=== PATIENT | male | born 1970 | race Caucasian/White ===

== ENCOUNTER 2016-06-22 13:49 | Emergency (ER) | payer BC, OTHER ==
[~2016-06-22] VITALS: Ht 180.3 cm; Wt 104.0 kg
[~2016-06-22 13:49] MED LIST: ACET-1256 PO; KPP/250 PO; SERT-234 PO
[2016-06-22 14:06] VITALS: TEMP 36.9
[2016-06-22] MEDS ORDERED: KETOROLAC TROMETHAMINE 30 MG/ML VIAL IV STA (14:16)
[2016-06-22] MEDS ORDERED: SODIUM CHLORIDE 0.9% 1000ML 1,000 ML IV STA (14:16)
[2016-06-22] MEDS ORDERED: MoRPHine SULFATE 10 MG/ML CARP/VIAL IV STA (14:16)
[2016-06-22] MEDS ORDERED: DiphenhydrAMINE HCL 50 MG/ML VIAL IV STA (14:16)
[2016-06-22] MEDS ORDERED: PROCHLORPERAZINE 5 MG/ML 2 ML VIAL IV STA (14:16)
[2016-06-22] MEDS ORDERED: FENTANYL CITRATE INJ 50 MCG/1 ML 2 ML VIAL IV STA (14:16)
--- NOTE | 2016-06-22 14:42 | EMERGENCY ROOM VISIT NOTE ---
History Report prepared by Aleena: Linda Colon Under the Supervision of: Dr. Eduardo Frederick M.D. First contact with patient: 14:12 Chief Complaint: HEADACHE Stated Complaint: SEVERE MIGRAINE WITH NAUSEA History of Present Illness The patient is a 45 year old male who presents to the Emergency Room with complaints of a constant headache since last night. He states that his pain began in the middle of the night. He has a history of migraine headaches and this feels like his typical migraine headache. He has pain that radiates into his jaw and shoulders. The patient rates his pain as a 10/10 in severity. Light exacerbates his pain. He is also feeling nauseated and dizzy with standing. 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 He denies fever, vision changes, and recent illness. The patient was recently at [facility] for a Gabapentin overdose. He was taken off of all his medications at that time. Since then he has been feeling weak and experiencing headaches. Source of History: patient Onset: last night Position: head Symptom Intensity: 10/10 Quality: other (radiating) Timing: constant Modifying Factors (Worsening): other (light) Associated Symptoms: + nausea, + weakness, No fevers Review of Systems See HPI for pertinent positives & negatives. A total of 10 systems reviewed and were otherwise negative. Past Medical & Surgical Medical Problems: (1) Altered mental status (2) Anxiety (3) chest pain (4) chest pain , allergy reaction (5) Depression (6) Elevated CK (7) Froin's syndrome (8) Hyperlipidemia Nec/Nos (9) Hypertension Nos (10) Lumbar Disc Displacement (11) Overdose (12) Status epilepticus (13) Suicide attempt (14) unresponsive resp failue, hypotensive, seizure Family History Cancer Diabetes mellitus Gallbladder disease Heart disease Hypertension Social History Smoking Status: Never Smoker Alcohol Use: none Drug Use: none Marital Status: Housing Status: lives with family Occupation Status: employed Current/Historical Medications Scheduled Amlodipine Besylate (Amlodipine Besylate), 5 MG PO DAILY Levetiracetam (Keppra), 500 MG PO BID Losartan Potassium (Losartan Potassium), 25 MG PO DAILY Pantoprazole (Pantoprazole Sodium), 40 MG PO DAILY Pravastatin Sodium (Pravastatin Sodium), 10 MG PO HS Sertraline (Zoloft), 100 MG PO DAILY Allergies Coded Allergies: Hydromorphone (Verified Allergy, Severe, SHORTNESS OF BREATH, 06/22/16) 1.5 hr after dilaudid iv in ed, he developed facial swelling/EDEMA TO UNDERNEATH LEFT EYE, pharyngeal and tongue sob, and wheezing, Penicillins (Verified Allergy, Severe, ALLERGY TO [id number] , 06/22/16) Doxycycline (Verified Allergy, Intermediate, BLISTERS/HIVES, 06/22/16) Clindamycin (Verified Allergy, Unknown, Unknown, 06/22/16) Eletriptan (Verified Adverse Reaction, Unknown, nausea/vomiting, 06/22/16) Physical Exam Vital Signs Date Time Temp Pulse Resp B/P Pulse Ox O2 Delivery O2 Flow Rate FiO2 06/22/16 16:26 83 16 118/68 92 06/22/16 15:28 85 117/64 91 Room Air 06/22/16 15:22 92 06/22/16 14:58 121/74 06/22/16 14:48 78 16 123/78 94 125/85 95 119/82 06/22/16 14:45 95 Room Air 06/22/16 14:45 95 Room Air 06/22/16 14:06 36.9 112 18 142/91 97 Room Air Physical Exam GENERAL: Patient is a healthy-appearing well-nourished 45 year old male. HEAD: Normocephalic atraumatic EYES: Ocular movements intact pupils equal and react to light OROPHARYNX mucous membranes are moist no exudates present no erythema or edema present NECK: Supple no nuchal rigidity, no evidence of meningitis or encephalitis. CHEST: Good equal expansion LUNGS: Clear and equal to auscultation CARDIAC: Normal S1 and S2 ABDOMEN: Soft nontender no guarding BACK: No CVA tenderness EXTREMITIES: No pain upon palpation normal muscle strength in all groups no clubbing cyanosis or edema NEURO: Patient is following commands is answering questions appropriately. Alert and oriented x3 Cranial Nerves 2-12 grossly intact Medical Decision & Procedures Laboratory Results 06/22/16 14:50 Red Blood Count 5.02, Mean Corpuscular Volume 88.2, Mean Corpuscular Hemoglobin 30.9, Mean Corpuscular Hemoglobin Concent 35.0, Mean Platelet Volume 8.5, Neutrophils (%) (Auto) 47.9, Lymphocytes (%) (Auto) 36.6, Monocytes (%) (Auto) 9.6, Eosinophils (%) (Auto) 4.9, Basophils (%) (Auto) 0.5, Neutrophils # (Auto) 3.59, Lymphocytes # (Auto) 2.75, Monocytes # (Auto) 0.72, Eosinophils # (Auto) 0.37, Basophils # (Auto) 0.04 06/22/16 14:50 Test 06/22/16 14:47 06/22/16 14:50 06/22/16 14:51 Bedside Glucose 81 mg/dl (70-99) White Blood Count 7.51 K/uL (4.8-10.8) Red Blood Count 5.02 M/uL (4.7-6.1) Hemoglobin 15.5 g/dL (14.0-18.0) Hematocrit 44.3 % (42-52) Mean Corpuscular Volume 88.2 fL (80-100) Mean Corpuscular Hemoglobin 30.9 pg (25-34) Mean Corpuscular Hemoglobin Concent 35.0 g/dl (32-36) Platelet Count 164 K/uL (130-400) Mean Platelet Volume 8.5 fL (7.4-10.4) Neutrophils (%) (Auto) 47.9 % Lymphocytes (%) (Auto) 36.6 % Monocytes (%) (Auto) 9.6 % Eosinophils (%) (Auto) 4.9 % Basophils (%) (Auto) 0.5 % Neutrophils # (Auto) 3.59 K/uL (1.4-6.5) Lymphocytes # (Auto) 2.75 K/uL (1.2-3.4) Monocytes # (Auto) 0.72 K/uL (0.11-0.59) Eosinophils # (Auto) 0.37 K/uL (0-0.5) Basophils # (Auto) 0.04 K/uL (0-0.2) RDW Standard Deviation 44.2 fL (36.4-46.3) RDW Coefficient of Variation 13.7 % (11.5-14.5) Immature Granulocyte % (Auto) 0.5 % Immature Granulocyte # (Auto) 0.04 K/uL (0.00-0.02) Anion Gap 9.0 mmol/L (3-11) Est Creatinine Clear Calc Drug Dose 104.1 ml/min Estimated GFR () 93.5 Estimated GFR (Non- 80.6 BUN/Creatinine Ratio 11.9 (10-20) Calcium Level 8.9 mg/dl (8.5-10.1) Total Bilirubin 0.2 mg/dl (0.2-1) Direct Bilirubin < 0.1 mg/dl (0-0.2) Aspartate Amino Transf (AST/SGOT) 13 U/L (15-37) Alanine Aminotransferase (ALT/SGPT) 32 U/L (12-78) Alkaline Phosphatase 117 U/L (45-117) Total Protein 7.5 gm/dl (6.4-8.2) Albumin 4.0 gm/dl (3.4-5.0) Thyroid Stimulating Hormone (TSH) 1.220 uIu/ml (0.300-4.500) Urine Color YELLOW Urine Appearance CLEAR (CLEAR) Urine pH 6.0 (4.5-7.5) Urine Specific [place] 1.029 (1.000-1.030) Urine Protein NEG (NEG) Urine Glucose (UA) NEG (NEG) Urine Ketones TRACE (NEG) Urine Occult Blood NEG (NEG) Urine Nitrite NEG (NEG) Urine Bilirubin NEG (NEG) Urine Urobilinogen NEG (NEG) Urine Leukocyte Esterase TRACE (NEG) Urine WBC (Auto) 1-5 /hpf (0-5) Urine RBC (Auto) 0-4 /hpf (0-4) Urine Hyaline Casts (Auto) 1-5 /lpf (0-5) Urine Epithelial Cells (Auto) 10-20 /lpf (0-5) Urine Bacteria (Auto) NEG (NEG) Labs reviewed by ED physician. Medications Administered Medications (Trade) Dose Ordered Sig/Eunice Route Start Time Stop Time Status Last Admin Dose Admin Sodium Chloride (Nss 1000ml) 1,000 ml @ 999 mls/hr Q1H1M STAT IV 06/22/16 14:16 06/22/16 15:16 DC 06/22/16 15:03 999 MLS/HR Ketorolac Tromethamine (Toradol Inj) 30 mg NOW STAT IV 06/22/16 14:16 17 14:18 DC 06/22/16 15:06 30 MG Prochlorperazine Edisylate (Compazine Inj) 10 mg NOW STAT IV 06/22/16 14:16 1/16/17 14:18 DC 06/22/16 15:11 10 MG Diphenhydramine HCl (Benadryl Inj) 50 mg NOW STAT IV 06/22/16 14:16 06/22/16 14:18 DC 06/22/16 15:05 50 MG Fentanyl Citrate (Fentanyl Inj) 50 mcg NOW STAT IV 06/22/16 14:16 06/22/16 14:18 DC 06/22/16 15:07 50 MCG Morphine Sulfate (MoRPHine SULFATE INJ) 6 mg NOW STAT IV 06/22/16 14:16 06/22/16 14:18 DC 06/22/16 15:09 6 MG ECG Indication: weakness Rate (beats per minute): 84 Rhythm: normal sinus Findings: no acute ischemic change, no ectopy ED Course 1412: Past medical records reviewed. The patient was evaluated in room C12B. A complete history and physical examination was performed. 1416: Morphine sulfate 6 mg IV, Fentanyl 50 mcg IV, Benadryl 50 mg IV, Compazine 10 mg IV, Toradol 30 mg IV, NSS 1000 ml @ 999 mls/hr IV 1546: I reassessed the patient at this time. He is feeling better and resting comfortably. I discussed the results and treatment plan with the patient. I answered all pertaining questions that he had. He expressed understanding and verbalized agreement. The patient will be discharged home. Medical Decision Differential diagnosis: Etiologies such as migraine headache, meningitis, sinusitis, CO exposure, ICH, SAH, infection, tumor, headache, sinus thrombosis, arterial dissection, as well as others were entertained. This is a 45-year-old male who presents emergency department complaining of what he feels is a typical migraine headache however he is had associated weakness along with it. The patient was recently admitted to [facility] for a Neurontin overdose. It has been off his- neuro medication since then. He is asking for his normal migraine cocktail and feels that this is a normal migraine. For this reason IV was established, patient given normal saline bolus , Toradol, Compazine, Benadryl, morphine, fentanyl. Repeat examination revealed improvement patient's symptoms. I do feel the patient as well as he can be discharged home for follow-up with his primary care physician. Patient was in agreement with the treatment plan. Impression Primary Impression: Headache Scribe Attestation The scribe's documentation has been prepared under my direction and personally reviewed by me in its entirety. I confirm that the note above accurately reflects all work, treatment, procedures, and medical decision making performed by me. Departure Information Dispostion Home / Self-Care Referrals Nigel Chowdary M.D. Forms HOME CARE DOCUMENTATION FORM, IMPORTANT VISIT INFORMATION, School Instructions, Work Instructions Patient Instructions Headache Pain, My [facility] Additional Instructions You received narcotic or benzodiazepene medication while in the emergency room today. Do not drive, operate heavy machinery, or drink alcohol under the influence of this medication. You have been examined and treated today on an emergency basis only. This is not a substitute for, or an effort to provide, complete comprehensive medical care. It is impossible to recognize and treat all injuries or illnesses in a single emergency department visit. It is therefore important that you follow up closely with Dr Chowdary. Call as soon as possible for an appointment. Thank you for your time and consideration. I look forward to speaking with you again soon. Please don't hesitate to call us if you have any questions. Problem Qualifiers Primary Impression: Headache Headache type: unspecified Headache chronicity pattern: unspecified pattern Intractability: not intractable Qualified Codes: R51 - Headache
[2016-06-22 14:43] VITALS: Ht 180.3 cm; Wt 104.0 kg
[2016-06-22 14:45] VITALS: O2SAT 95
[2016-06-22 15:12] LABS: BASO % 0.5 %; BASO ABS # 0.04 K/uL (0-0.2); COMPLETE YES; EOS % 4.9 %; HEMATOCRIT 44.3 % (42-52); IG% 0.5 %; LYMPH % 36.6 %; LYMPH ABS # 2.75 K/uL (1.2-3.4); MEAN CELL VOLUME 88.2 fL (80-100); MEAN CORPUSCULAR HEMOGLOBIN 30.9 pg (25-34); MEAN PLATELET VOLUME 8.5 fL (7.4-10.4); MONO % 9.6 %; NEUT % 47.9 %; PLATELET COUNT 164 K/uL (130-400); RED BLOOD COUNT 5.02 M/uL (4.7-6.1); WHITE BLOOD COUNT 7.51 K/uL (4.8-10.8)
[2016-06-22 15:23] LABS: URINE APPEARANCE CLEAR (CLEAR); URINE BILIRUBIN NEG (NEG); URINE COLOR YELLOW; URINE NITRITE NEG (NEG); URINE SPECIFIC GRAVITY 1.029 (1.000-1.030); UROBILINOGEN NEG (NEG)
[2016-06-22 15:33] LABS: MANUAL MICROSCOPIC REQUIRED? NO; REVIEW REQ? NO
[2016-06-22 16:25] LABS: ALT/SGPT 32 U/L (12-78); AST/SGOT 13 U/L (15-37); BLOOD UREA NITROGEN 13 mg/dl (7-18); BUN/CREATININE RATIO 11.9 (10-20); CALCIUM 8.9 mg/dl (8.5-10.1); CARBON DIOXIDE 29 mmol/L (21-32); CHLORIDE 104 mmol/L (98-107); GLUCOSE 85 mg/dl (70-99); POTASSIUM 4.1 mmol/L (3.5-5.1); SODIUM 142 mmol/L (136-145)
[2016-06-22 16:26] VITALS: BP 118/68; PULSE 83; O2SAT 92
[2016-06-22 16:50] LABS: ALKALINE PHOSPHATASE 117 U/L (45-117)
[2016-06-26] MEDS ORDERED: LEVE500T13 PO (15:00)
[2016-06-26] MEDS ORDERED: PRT/40 PO (16:04)
[2016-06-26] MEDS ORDERED: PRAV10TA39 PO (16:04)
[2016-06-26] MEDS ORDERED: NRV/5 PO (16:04)
[2016-06-26] MEDS ORDERED: CZR25 PO (16:04)
[2016-09-02] MEDS ORDERED: LAMO100T16 PO ×2 (09:51)
[2017-02-17] MEDS ORDERED: TRAZ100T29 PO (09:12)
== END 2016-06-22 16:27 | disposition home or self-care (01) ==
LOC: C.EDB 13:51 → C.EDC 16:27
DX: R51 Headache (principal); R42 Dizziness and giddiness; I10 Essential (primary) hypertension; E78.5 Hyperlipidemia, unspecified; F32.9 Major depressive disorder, single episode, unspecified; Z91.5 Personal history of self-harm; Z83.3 Family history of diabetes mellitus; Z82.49 Family history of ischemic heart disease and other diseases of the circulatory system; Z79.899 Other long term (current) drug therapy

== ENCOUNTER 2016-06-26 21:13 | Emergency (ER) | payer BC, OTHER ==
[~2016-06-26] VITALS: Ht 180.3 cm; Wt 100.0 kg
[~2016-06-26 21:13] MED LIST changes: -ACET-1256 PO; +CZR25 PO; -KPP/250 PO; +LEVE500T13 PO; +NRV/5 PO; +PRAV10TA39 PO; +PRT/40 PO
[2016-06-26 21:17] VITALS: TEMP 36.5; Ht 180.3 cm; Wt 100.0 kg
[2016-06-26] MEDS ORDERED: KETOROLAC TROMETHAMINE 30 MG/ML VIAL IV STA (21:50)
[2016-06-26] MEDS ORDERED: MoRPHine SULFATE 10 MG/ML CARP/VIAL IV STA (21:50)
[2016-06-26] MEDS ORDERED: LORAZEPAM 2 MG/ML 1 ML VIAL IV STA (21:50)
[2016-06-26] MEDS ORDERED: PROCHLORPERAZINE 5 MG/ML 2 ML VIAL IV STA (21:50)
[2016-06-26] MEDS ORDERED: DiphenhydrAMINE HCL 50 MG/ML VIAL IV STA (21:50)
[2016-06-26] MEDS ORDERED: SODIUM CHLORIDE 0.9% 1000ML 1,000 ML IV STA (21:50)
[2016-06-26] MEDS ORDERED: CMP/10 PO (22:37)
[2016-06-26] MEDS ORDERED: ZLF/100 PO (22:37)
[2016-06-26] MEDS ORDERED: IMT100 PO (22:37)
[2016-06-26] MEDS ORDERED: FRCT/ PO (22:37)
[2016-06-26] MEDS ORDERED: ONDA4TAB10 SL (22:37)
[2016-06-26] MEDS ORDERED: ZNF/4 PO (22:37)
[2016-06-26] MEDS ORDERED: THIA1TAB11 PO (22:38)
--- NOTE | 2016-06-26 23:27 | EMERGENCY ROOM VISIT NOTE ---
History First contact with patient: 21:48 Chief Complaint: BACK PAIN Stated Complaint: SEVERE MIGRAINE, SEVERE BACK PAIN, SPASUMS LOW JOCELIN History of Present Illness The patient is a 45 year old male who presents to the Emergency Room with complaints of headache with muscle spasms for the past day. Patient is a long- standing history of this and symptoms of similar. Headache was slow in onset. Patient is to begin Botox injections for his migraines next month. He follows with Dr. Shea. He describes the headache as throbbing, ranging in severity currently 8 out of 10 throughout the frontal region similar to prior. He states only when he gets his headaches, he also gets spasms and back pain. This is unchanged. Patient denies chest pain, dyspnea, fever, chills, vomiting , diarrhea, neck stiffness, weakness. He is tolerating by mouth fluids and food. Review of Systems See HPI for pertinent positives & negatives. A total of 10 systems reviewed and were otherwise negative. Past Medical/Surgical History Medical Problems: (1) Altered mental status (2) Anxiety (3) chest pain (4) chest pain , allergy reaction (5) Depression (6) Elevated CK (7) Froin's syndrome (8) Hyperlipidemia Nec/Nos (9) Hypertension Nos (10) Lumbar Disc Displacement (11) Overdose (12) Status epilepticus (13) Suicide attempt (14) unresponsive resp failue, hypotensive, seizure Family History Cancer Diabetes mellitus Gallbladder disease Heart disease Hypertension Social History Smoking Status: Never Smoker Alcohol Use: none Drug Use: none Marital Status: Housing Status: lives with family Occupation Status: employed Current/Historical Medications Scheduled Amlodipine Besylate (Amlodipine Besylate), 5 MG PO DAILY Levetiracetam (Keppra), 500 MG PO BID Losartan Potassium (Losartan Potassium), 25 MG PO DAILY Pantoprazole (Pantoprazole Sodium), 40 MG PO DAILY Pravastatin Sodium (Pravastatin Sodium), 10 MG PO HS Sertraline HCl (Sertraline HCl), 100 MG PO DAILY Thiamine Mononitrate (Vitamin B1), 100 MG PO DAILY Tizanidine (Tizanidine HCl), 4 MG PO HS Scheduled PRN Acetamin/Butalbital/Caffeine (Fioricet), 1-2 TABS PO BID PRN for Headache Ondasetron Odt (Zofran Odt), 4 MG SL TID PRN for Nausea Prochlorperazine Maleate (Prochlorperazine Maleate), 10 MG PO TID PRN for Nausea Sumatriptan Succinate (Imitrex), 100 MG PO UD PRN for Migraine Allergies Coded Allergies: Hydromorphone (Verified Allergy, Severe, SHORTNESS OF BREATH, 06/22/16) 1.5 hr after dilaudid iv in ed, he developed facial swelling/EDEMA TO UNDERNEATH LEFT EYE, pharyngeal and tongue sob, and wheezing, Penicillins (Verified Allergy, Severe, ALLERGY TO [id number] , 06/22/16) Doxycycline (Verified Allergy, Intermediate, BLISTERS/HIVES, 06/22/16) Clindamycin (Verified Allergy, Unknown, Unknown, 06/22/16) Eletriptan (Verified Adverse Reaction, Unknown, nausea/vomiting, 06/22/16) Physical Exam Vital Signs Date Time Temp Pulse Resp B/P Pulse Ox O2 Delivery O2 Flow Rate FiO2 06/26/16 22:41 88 16 142/107 98 Room Air 06/26/16 21:17 36.5 90 18 156/113 94 Room Air Physical Exam VITALS: Vitals are noted on the nurse's note and reviewed by myself. Vital signs hypertensive GENERAL: Pleasant male, in no acute distress, nondiaphoretic, well-developed well-nourished. SKIN: The skin was without rashes, erythema, edema, or bruising. There is no tenting of the skin. Capillary reflex less than 2 seconds. HEAD: Normocephalic atraumatic. EARS: External auditory canals clear, tympanic membranes pearly henderson without erythema or effusion bilaterally. EYES: Pupils equal round and reactive to light and accommodation. Conjunctivae without injection, sclerae without icterus. Extraocular movements intact. NOSE: Patent, turbinates without inflammation or discharge. No sinus tenderness. MOUTH: Mucous membranes moist. Pharynx without erythema or exudate. Uvula midline. Airway patent. Tongue does not deviate. NECK: Supple without nuchal rigidity. No lymphadenopathy. No thyromegaly. Cervical spine is nontender. No JVD. HEART: Regular rate and rhythm without murmurs gallops or rubs. LUNGS: Clear to auscultation bilaterally without wheezes, rales or rhonchi. No dullness to percussion. No retractions or accessory muscle use. ABDOMEN: Positive bowel sounds x 4. Normal tympanic percussion. Soft, nontender, without masses or organomegaly. Chavarria sign negative. No guarding or rebound tenderness. MUSCULOSKELETAL: No muscle atrophy, erythema, or edema noted. No thoracic or lumbar tenderness on exam. Patient can ambulate without difficulties NEURO: Patient was alert and oriented to person place and time. Normal sensation to light and sharp touch. No focal neurological deficits. Cranial nerves II through XII grossly intact. No pronator drift. Cerebellar exam intact. Medical Decision & Procedures Medications Administered Medications (Trade) Dose Ordered Sig/Eunice Route Start Time Stop Time Status Last Admin Dose Admin Morphine Sulfate (MoRPHine SULFATE INJ) 6 mg NOW STAT IV 06/26/16 21:50 06/26/16 21:54 DC 06/26/16 22:35 6 MG Ketorolac Tromethamine (Toradol Inj) 30 mg NOW STAT IV 06/26/16 21:50 06/26/16 21:54 DC 06/26/16 22:35 30 MG Diphenhydramine HCl (Benadryl Inj) 25 mg NOW STAT IV 06/26/16 21:50 06/26/16 21:54 DC 06/26/16 22:36 25 MG Prochlorperazine Edisylate 10 mg 10 mg NOW STAT IV 06/26/16 21:50 06/26/16 21:54 DC 06/26/16 22:36 10 MG Sodium Chloride (Nss 1000ml) 1,000 ml @ 999 mls/hr Q1H1M STAT IV 06/26/16 21:50 06/26/16 22:50 DC 06/26/16 22:36 999 MLS/HR ED Course Prior records/ancillary studies reviewed. Additional history obtained from family. Triage Nursing notes reviewed. The patient's history was concerning for headache. Differential diagnosis: Etiologies such as migraine headache, meningitis, sinusitis, CO exposure, ICH, SAH, infection, tumor, headache, sinus thrombosis, arterial dissection, as well as others were entertained. Physical examination findings: As above. Non-focal. ER treatment provided: Morphine, Benadryl, Compazine, fluids per patient stated protocol On reassessment the patient felt better. Diagnostics interpreted by me: Deferred This appears to be consistent with migraine. Patient has a long-standing history of this and symptoms are similar. Patient felt much better and requested to leave. He was neurovascularly and neurologically intact. He had no deficits on exam. He had no signs of meningitis. He was advised to follow- up as scheduled with neurology or here in the ER sooner for severe headache, fevers, weakness, worsening signs or symptoms or as needed. By the evaluation outlined above emergent etiologies such as meningitis, sinusitis, CO exposure, ICH, SAH, infection, temporal arteritis, tumor, sinus thrombosis, arterial dissection, as well as others were deemed relatively unlikely. The pt informed about the findings as listed above. All questions were answered and pleased with the treatment. Return instructions were outlined and the patient was discharged in stable condition. Referral: The patient was referred back to their primary care physician for follow-up in 2 to 3 days for a recheck of the current condition. Medical Decision As above Impression Primary Impression: Migraine headache Departure Information Dispostion Home / Self-Care Condition GOOD Referrals Nigel Chowdary M.D. (PCP) Patient Instructions My [facility] Additional Instructions DO NOT drive, drink alcohol, operate machinery, or perform dangerous activities today. You were given medications in the ER that can affect your ability to safely function or operate a vehicle. Rest today in a quiet, peaceful, dark environment and get a full 8-10 hrs of sleep tonight. Avoid loud noises, smoke/smoking, alcohol, bright lights, stress, or physical exertion today to minimize the chance the headache may return. Continue current medications. Ibuprofen(Motrin, Advil) may be used for fever or pain. Use 600mg every six hours as needed. Take with food. Avoid using more than 2400mg in a 24 hour period. Do not use 2400mg per day for more than three consecutive days without physician direction. Prolonged inappropriate use can lead to stomach upset or ulcers. (AND/OR) Acetaminophen(Tylenol) may be used for fever or pain. Use 1000mg every six hours as needed. Avoid using more than 3000mg in a 24 hour period. Return to the ER for passing out, worsening headache, vision problems, neck stiffness/pain, fevers, vomiting, worsening of your condition, or as needed. Follow up with your primary physician and/or a neurologist in 2-3 days for a recheck of your current condition. Problem Qualifiers Primary Impression: Migraine headache Migraine type: without aura Status migrainosus presence: without status migrainosus Intractability: not intractable Qualified Codes: G43.009 - Migraine without aura, not intractable, without status migrainosus
[2016-06-26 23:40] VITALS: BP 134/81; PULSE 68; O2SAT 92
[2016-09-02] MEDS ORDERED: LAMO100T16 PO ×2 (09:51)
[2017-02-17] MEDS ORDERED: TRAZ100T29 PO (09:12)
== END 2016-06-26 23:40 | disposition home or self-care (01) ==
LOC: C.EDB 21:15 → C.EDC 23:40
DX: G43.909 Migraine, unspecified, not intractable, without status migrainosus (principal); E78.5 Hyperlipidemia, unspecified; Z80.9 Family history of malignant neoplasm, unspecified; Z82.49 Family history of ischemic heart disease and other diseases of the circulatory system; Z83.3 Family history of diabetes mellitus; Z88.0 Allergy status to penicillin; Z88.1 Allergy status to other antibiotic agents

== ENCOUNTER 2016-07-09 18:56 | Emergency (ER) | payer BC, OTHER ==
[~2016-07-09] VITALS: Ht 180.3 cm; Wt 107.1 kg
[~2016-07-09 18:56] MED LIST changes: +CMP/10 PO; +FRCT/ PO; +IMT100 PO; +ONDA4TAB10 SL; -SERT-234 PO; +THIA1TAB11 PO; +ZLF/100 PO; +ZNF/4 PO
[2016-07-09 18:59] VITALS: TEMP 36.8; Ht 180.3 cm; Wt 107.1 kg
[2016-07-09] MEDS ORDERED: MoRPHine SULFATE 10 MG/ML CARP/VIAL IV STA (19:15)
[2016-07-09] MEDS ORDERED: DiphenhydrAMINE HCL 50 MG/ML VIAL IV STA (19:15)
[2016-07-09] MEDS ORDERED: KETOROLAC TROMETHAMINE 30 MG/ML VIAL IV STA (19:15)
[2016-07-09] MEDS ORDERED: PROCHLORPERAZINE 5 MG/ML 2 ML VIAL IV STA (19:15)
[2016-07-09] MEDS ORDERED: SODIUM CHLORIDE 0.9% 1000ML 1,000 ML IV STA (19:15)
--- NOTE | 2016-07-09 20:32 | EMERGENCY ROOM VISIT NOTE ---
ED Visit Note First contact with patient: 19:07 CHIEF COMPLAINT: Migraine headache HISTORY OF PRESENT ILLNESS: This 46-year-old male patient presented to the emergency department via private vehicle coming by mother with a gradual onset of a severe generalized headache that started this afternoon. The patient states the migraine is similar to their typical migraines. There has been associated photophobia, phonophobia, nausea but no vomiting. The patient denies fever or chills recently, and there is no weakness or numbness of the extremities. There is no difficulty with speech or vision. No trauma to the head and no neck pain. The pain is severe, constant, and it is slowly increasing in severity. The patient rates the pain as 10/10. The patient has taken Compazine and Imitrex with minimal relief. This is not the worst headache of the life and is similar to previous migraines. Previous imaging studies of the brain have been normal. REVIEW OF SYSTEMS: A review of systems was performed with positives and pertinent negatives listed in the history of present illness. All other systems were reviewed and are negative. ALLERGIES: As noted below MEDICATIONS: As noted PMH: As noted below SOCIAL HISTORY: Pt. lives at home. PHYSICAL EXAM: Vital Signs: Reviewed Nurse's notes, vital signs stable. GENERAL : 46-year-old male, who appears in pain, but non toxic in appearance and in no acute distress. MENTAL STATUS: Alert, oriented, and coherent. HEENT: Normocephalic. PERRLA. EOMI. Nares patent without nuchal rigidity. Tympanic membranes pearly henderson without erythema or effusion bilaterally. Mucous membranes moist. NECK: Supple, no nuchal rigidity, nontender, no lymphadenopathy. HEART: Regular rhythm and normal rate without murmurs, ectopy, gallops, or rubs. LUNGS: Clear to auscultation bilaterally without wheezes, rales or rhonchi. No dullness to percussion. No accessory muscle use. No retractions. SKIN: Normal. NEUROLOGICAL: Pupils are round, equal and react to light. The patient moves all extremities well and the gait is normal. EMERGENCY DEPARTMENT COURSE: I examined the patient. The patient is on a 2 narcotic injection per month treatment plan for their migraines. The patient was given 60 g of morphine, 30 mg of Toradol, 25 mg of Benadryl, 10 mg of Compazine IV and a liter of normal saline per their usual protocol. The differential diagnosis includes acute intracranial bleed, meningitis, encephalitis, mass or mass effect, sinusitis, infection, tumor, headache, temporal arteritis and carbon monoxide exposure, and migraine. The patient was discharged home in stable condition with mother driving. Patient declined any imaging or workup. Problem List Medical Problems: (1) Altered mental status Status: Resolved (2) Anxiety Status: Chronic (3) Depression Status: Chronic (4) Elevated CK Status: Resolved (5) Froin's syndrome Status: Chronic (6) Hyperlipidemia Nec/Nos Status: Chronic (7) Hypertension Nos Status: Chronic (8) Lumbar Disc Displacement Status: Resolved (9) Overdose Status: Resolved (10) Status epilepticus Status: Resolved (11) Suicide attempt Status: Resolved Current/Historical Medications Scheduled Amlodipine Besylate (Amlodipine Besylate), 5 MG PO DAILY Levetiracetam (Keppra), 500 MG PO BID Losartan Potassium (Losartan Potassium), 25 MG PO DAILY Pantoprazole (Pantoprazole Sodium), 40 MG PO DAILY Pravastatin Sodium (Pravastatin Sodium), 10 MG PO HS Sertraline HCl (Sertraline HCl), 100 MG PO DAILY Thiamine Mononitrate (Vitamin B1), 100 MG PO DAILY Tizanidine (Tizanidine HCl), 4 MG PO HS Scheduled PRN Acetamin/Butalbital/Caffeine (Fioricet), 1-2 TABS PO BID PRN for Headache Ondasetron Odt (Zofran Odt), 4 MG SL TID PRN for Nausea Prochlorperazine Maleate (Prochlorperazine Maleate), 10 MG PO TID PRN for Nausea Sumatriptan Succinate (Imitrex), 100 MG PO UD PRN for Migraine Allergies Coded Allergies: Hydromorphone (Verified Allergy, Severe, SHORTNESS OF BREATH, 06/22/16) 1.5 hr after dilaudid iv in ed, he developed facial swelling/EDEMA TO UNDERNEATH LEFT EYE, pharyngeal and tongue sob, and wheezing, Penicillins (Verified Allergy, Severe, ALLERGY TO [id number] , 06/22/16) Doxycycline (Verified Allergy, Intermediate, BLISTERS/HIVES, 06/22/16) Clindamycin (Verified Allergy, Unknown, Unknown, 06/22/16) Eletriptan (Verified Adverse Reaction, Unknown, nausea/vomiting, 06/22/16) Vital Signs Date Time Temp Pulse Resp B/P Pulse Ox O2 Delivery O2 Flow Rate FiO2 07/09/16 20:46 63 137/87 93 Room Air 07/09/16 18:59 36.8 82 18 163/98 96 Room Air Medications Administered Medications (Trade) Dose Ordered Sig/Eunice Route Start Time Stop Time Status Last Admin Dose Admin Morphine Sulfate (MoRPHine SULFATE INJ) 6 mg NOW STAT IV 07/09/16 19:15 07/09/16 19:18 DC 07/09/16 19:28 6 MG Ketorolac Tromethamine (Toradol Inj) 30 mg NOW STAT IV 07/09/16 19:15 07/09/16 19:18 DC 07/09/16 19:28 30 MG Diphenhydramine HCl (Benadryl Inj) 25 mg NOW STAT IV 07/09/16 19:15 07/09/16 19:18 DC 07/09/16 19:28 25 MG Prochlorperazine Edisylate 10 mg 10 mg NOW STAT IV 07/09/16 19:15 07/09/16 19:18 DC 07/09/16 19:28 10 MG Sodium Chloride (Nss 1000ml) 1,000 ml @ 999 mls/hr Q1H1M STAT IV 07/09/16 19:15 07/09/16 20:15 DC 07/09/16 19:27 999 MLS/HR Departure Information Impression Primary Impression: Headache Dispostion Home / Self-Care Condition GOOD Referrals Nigel Chowdary M.D. (PCP) Patient Instructions My [facility] Additional Instructions You have been treated in the Emergency Department for a Headache. You have received pain medicine in the emergency department which impairs your ability to operate a vehicle. It is illegal for you to drive after receiving these medicines. For pain control, you can use the following jlbe-vli-[id number] medicines (if >12 yo): - Regular strength (325mg/tab) Tylenol (acetaminophen) 2 tabs every 4-6 hours as needed. Do not exceed 12 tablets in a 24 hour period. Avoid taking more than 4 grams (4000 mg) of Tylenol per day. This includes any other sources of acetaminophen you may take on a regular basis. - Regular strength (200 mg/tab) Advil (ibuprofen) 1-2 tabs every 4-6 hours as needed. Do not exceed a dose of 3200 mg per day. You should relax in a quiet, dark place for the rest of the day. Avoid any possible triggers including: cigarette smoke, caffeine, nicotine, chocolate, wine, beer, loud noises or music, or bright lights. You should schedule a follow-up appointment in 2-3 days with your Primary Care Provider or established Neurologist for further evaluation and treatment of your Headache. Return to the Emergency Department if your current symptoms worsen despite treatment course outlined above, or if you develop any of the following symptoms : intractable pain despite aforementioned treatment course, visual disturbances , loss of vision, unilateral weakness or facial drooping, slurring of speech, loss of coordination, or loss of consciousness. Please return to the emergency department with any new/concerning symptoms. Problem Qualifiers Primary Impression: Headache Headache chronicity pattern: acute headache Intractability: not intractable
[2016-07-09 20:46] VITALS: BP 137/87; PULSE 63; O2SAT 93
--- NOTE | 2016-07-09 21:05 | EMERGENCY ROOM VISIT NOTE ---
ED Visit Note First contact with patient: 19:07 I did evaluate and examine this patient myself. I did guide management for the patient. I agree with the PA's assessment as discussed. Please see the PAs dictation for further details. The patient is presenting with a migraine headache. He was treated and feels better. He was advised follow with his doctor.
[2016-09-02] MEDS ORDERED: LAMO100T16 PO ×2 (09:51)
[2017-02-17] MEDS ORDERED: TRAZ100T29 PO (09:12)
== END 2016-07-09 20:51 | disposition home or self-care (01) ==
LOC: C.EDB 18:57 → C.EDD 20:51
DX: R51 Headache (principal); F41.9 Anxiety disorder, unspecified; F32.9 Major depressive disorder, single episode, unspecified; G95.89 Other specified diseases of spinal cord; E78.5 Hyperlipidemia, unspecified; I10 Essential (primary) hypertension; Z79.899 Other long term (current) drug therapy

== ENCOUNTER 2016-08-13 16:59 | Emergency (ER) | payer BC, OTHER ==
[~2016-08-13] VITALS: Ht 180.3 cm; Wt 103.8 kg
[2016-08-13 17:13] VITALS: TEMP 37.3; Ht 180.3 cm; Wt 103.8 kg
[2016-08-13] MEDS ORDERED: MoRPHine SULFATE 10 MG/ML CARP/VIAL IV STA (17:24)
[2016-08-13] MEDS ORDERED: SODIUM CHLORIDE 0.9% 1000ML 1,000 ML IV STA (17:24)
[2016-08-13] MEDS ORDERED: DiphenhydrAMINE HCL 50 MG/ML VIAL IV STA (17:24)
[2016-08-13] MEDS ORDERED: KETOROLAC TROMETHAMINE 30 MG/ML VIAL IV STA (17:24)
--- NOTE | 2016-08-13 17:31 | EMERGENCY ROOM VISIT NOTE ---
ED Visit Note First contact with patient: 17:16 CHIEF COMPLAINT: Migraine headache HISTORY OF PRESENT ILLNESS: This 46-year-old male patient presented to the emergency department via private vehicle accompanied by mother with a gradual onset of a severe generalized headache that started last evening and took butalbital which helped, however 10:30 AM it returned. he has tried Imitrex, Benadryl, Zofran, Compazine and butalbital without relief. His last Compazine was 1 tablet and 2 hours ago. He also took 25 mg Benadryl this morning. He states this is not the worst headache, but is painful. He states that this is not any different than his previous headaches. He denies any vomiting. He feels this is his typical migraine however this one has progressed. He states this does feel comparable to his headaches of the past. He was seen by myself on July 09 here at this facility. There has been associated photophobia, phonophobia, nausea but no vomiting. The patient denies fever or chills recently , and there is no weakness or numbness of the extremities. There is no difficulty with speech or vision. No trauma to the head and no neck pain. The pain is severe, constant, and it is slowly increasing in severity. The patient rates the pain as 10/10. This is not the worst headache of the life and is similar to previous migraines. Previous imaging studies of the brain have been normal. REVIEW OF SYSTEMS: A review of systems was performed with positives and pertinent negatives listed in the history of present illness. All other systems were reviewed and are negative. ALLERGIES: As noted below MEDICATIONS: As noted PMH: As noted below SOCIAL HISTORY: Pt. lives at home. PHYSICAL EXAM: Vital Signs: Reviewed Nurse's notes, vital signs stable. GENERAL : 46-year-old male, who appears in pain, but non toxic in appearance and in no acute distress. MENTAL STATUS: Alert, oriented, and coherent. HEENT: Normocephalic. PERRLA. EOMI. Nares patent without nuchal rigidity. Tympanic membranes pearly henderson without erythema or effusion bilaterally. Mucous membranes moist. NECK: Supple, no nuchal rigidity, nontender, no lymphadenopathy. HEART: Regular rhythm and normal rate without murmurs, ectopy, gallops, or rubs. LUNGS: Clear to auscultation bilaterally without wheezes, rales or rhonchi. No dullness to percussion. No accessory muscle use. No retractions. SKIN: Normal. NEUROLOGICAL: Pupils are round, equal and react to light. The patient moves all extremities well and the gait is normal. EMERGENCY DEPARTMENT COURSE: I examined the patient. The patient is on a 2 narcotic injection per month treatment plan for their migraines. The patient was given 6 mg of morphine, 30 mg of Toradol, 25 mg of Benadryl, and a liter of normal saline per their usual protocol. He was reevaluated and noted to be feeling minimally better. He was given 4 mg of morphine and then 10 mg of Compazine is addicted been 3 hours since his last dose. This provided great relief. He noted that he wanted to go home. Lab work was essentially unremarkable other than hypokalemia. He was discharged home in good condition. The differential diagnosis includes acute intracranial bleed, meningitis, encephalitis, mass or mass effect, sinusitis, infection, tumor, headache, temporal arteritis and carbon monoxide exposure, and migraine. The patient was discharged home in stable condition with mother driving. I do not feel that any imaging would be of benefit, it was noted that he has had numerous CT scans of the head in the past, he notes this is his typical migraine. Problem List Medical Problems: (1) Altered mental status Status: Resolved (2) Anxiety Status: Chronic (3) Depression Status: Chronic (4) Elevated CK Status: Resolved (5) Froin's syndrome Status: Chronic (6) Hyperlipidemia Nec/Nos Status: Chronic (7) Hypertension Nos Status: Chronic (8) Lumbar Disc Displacement Status: Resolved (9) Overdose Status: Resolved (10) Status epilepticus Status: Resolved (11) Suicide attempt Status: Resolved Current/Historical Medications Scheduled Amlodipine Besylate (Amlodipine Besylate), 5 MG PO DAILY Pantoprazole (Pantoprazole Sodium), 40 MG PO DAILY Pravastatin Sodium (Pravastatin Sodium), 10 MG PO HS Sertraline HCl (Sertraline HCl), 100 MG PO DAILY Tizanidine (Tizanidine HCl), 4 MG PO BID Scheduled PRN Acetamin/Butalbital/Caffeine (Fioricet), 1-2 TABS PO BID PRN for Headache Ondasetron Odt (Zofran Odt), 4 MG SL TID PRN for Nausea Prochlorperazine Maleate (Prochlorperazine Maleate), 10 MG PO TID PRN for Nausea Sumatriptan Succinate (Imitrex), 100 MG PO UD PRN for Migraine Allergies Coded Allergies: Hydromorphone (Verified Allergy, Severe, SHORTNESS OF BREATH, 08/13/16) 1.5 hr after dilaudid iv in ed, he developed facial swelling/EDEMA TO UNDERNEATH LEFT EYE, pharyngeal and tongue sob, and wheezing, Penicillins (Verified Allergy, Severe, ALLERGY TO [id number] , 08/13/16) Doxycycline (Verified Allergy, Intermediate, BLISTERS/HIVES, 08/13/16) Clindamycin (Verified Allergy, Unknown, Unknown, 08/13/16) Eletriptan (Verified Adverse Reaction, Unknown, nausea/vomiting, 08/13/16) Vital Signs Date Time Temp Pulse Resp B/P Pulse Ox O2 Delivery O2 Flow Rate FiO2 08/13/16 19:40 89 18 178/108 94 Room Air 08/13/16 18:21 77 16 151/99 96 Room Air 08/13/16 17:13 37.3 103 18 154/100 97 Room Air Laboratory Results 08/13/16 17:30 Red Blood Count 5.31, Mean Corpuscular Volume 87.8, Mean Corpuscular Hemoglobin 31.3, Mean Corpuscular Hemoglobin Concent 35.6, Mean Platelet Volume 9.2, Neutrophils (%) (Auto) 56.7, Lymphocytes (%) (Auto) 27.7, Monocytes (%) (Auto) 13.8, Eosinophils (%) (Auto) 1.3, Basophils (%) (Auto) 0.4, Neutrophils # (Auto ) 3.87, Lymphocytes # (Auto) 1.89, Monocytes # (Auto) 0.94, Eosinophils # (Auto ) 0.09, Basophils # (Auto) 0.03 08/13/16 17:30 Test 08/13/16 17:30 White Blood Count 6.83 K/uL (4.8-10.8) Red Blood Count 5.31 M/uL (4.7-6.1) Hemoglobin 16.6 g/dL (14.0-18.0) Hematocrit 46.6 % (42-52) Mean Corpuscular Volume 87.8 fL (80-100) Mean Corpuscular Hemoglobin 31.3 pg (25-34) Mean Corpuscular Hemoglobin Concent 35.6 g/dl (32-36) Platelet Count 142 K/uL (130-400) Mean Platelet Volume 9.2 fL (7.4-10.4) Neutrophils (%) (Auto) 56.7 % Lymphocytes (%) (Auto) 27.7 % Monocytes (%) (Auto) 13.8 % Eosinophils (%) (Auto) 1.3 % Basophils (%) (Auto) 0.4 % Neutrophils # (Auto) 3.87 K/uL (1.4-6.5) Lymphocytes # (Auto) 1.89 K/uL (1.2-3.4) Monocytes # (Auto) 0.94 K/uL (0.11-0.59) Eosinophils # (Auto) 0.09 K/uL (0-0.5) Basophils # (Auto) 0.03 K/uL (0-0.2) RDW Standard Deviation 44.1 fL (36.4-46.3) RDW Coefficient of Variation 13.7 % (11.5-14.5) Immature Granulocyte % (Auto) 0.1 % Immature Granulocyte # (Auto) 0.01 K/uL (0.00-0.02) Anion Gap 10.0 mmol/L (3-11) Est Creatinine Clear Calc Drug Dose 94.3 ml/min Estimated GFR () 83.5 Estimated GFR (Non- 72.1 BUN/Creatinine Ratio 10.3 (10-20) Calcium Level 8.9 mg/dl (8.5-10.1) Medications Administered Medications (Trade) Dose Ordered Sig/Eunice Route Start Time Stop Time Status Last Admin Dose Admin Sodium Chloride (Nss 1000ml) 1,000 ml @ 999 mls/hr Q1H1M STAT IV 08/13/16 17:24 08/13/16 18:24 DC 08/13/16 17:24 999 MLS/HR Morphine Sulfate (MoRPHine SULFATE INJ) 6 mg NOW STAT IV 08/13/16 17:24 08/13/16 17:27 DC 08/13/16 17:24 6 MG Ketorolac Tromethamine (Toradol Inj) 30 mg NOW STAT IV 08/13/16 17:24 08/13/16 17:27 DC 08/13/16 17:24 30 MG Diphenhydramine HCl (Benadryl Inj) 25 mg NOW STAT IV 08/13/16 17:24 08/13/16 17:27 DC 08/13/16 17:24 25 MG Morphine Sulfate (MoRPHine SULFATE INJ) 4 mg NOW STAT IV 08/13/16 18:17 08/13/16 18:18 DC 08/13/16 18:21 4 MG Prochlorperazine Edisylate (Compazine Inj) 10 mg NOW STAT IV 08/13/16 18:36 08/13/16 18:37 DC 08/13/16 18:45 10 MG Departure Information Impression Primary Impression: Headache Dispostion Home / Self-Care Condition GOOD Referrals No Doctor, Assigned (PCP) Patient Instructions Hypokalemia [facility] Additional Instructions You have been treated in the Emergency Department for a Headache. You have received pain medicine in the emergency department which impairs your ability to operate a vehicle. It is illegal for you to drive after receiving these medicines. For pain control, you can use the following cuvy-pws-opiiouh medicines (if >12 yo): - Regular strength (325mg/tab) Tylenol (acetaminophen) 2 tabs every 4-6 hours as needed. Do not exceed 12 tablets in a 24 hour period. Avoid taking more than 4 grams (4000 mg) of Tylenol per day. This includes any other sources of acetaminophen you may take on a regular basis. - Regular strength (200 mg/tab) Advil (ibuprofen) 1-2 tabs every 4-6 hours as needed. Do not exceed a dose of 3200 mg per day. You should relax in a quiet, dark place for the rest of the day. Avoid any possible triggers including: cigarette smoke, caffeine, nicotine, chocolate, wine, beer, loud noises or music, or bright lights. You should schedule a follow-up appointment in 2-3 days with your Primary Care Provider or established Neurologist for further evaluation and treatment of your Headache. Return to the Emergency Department if your current symptoms worsen despite treatment course outlined above, or if you develop any of the following symptoms : intractable pain despite aforementioned treatment course, visual disturbances , loss of vision, unilateral weakness or facial drooping, slurring of speech, loss of coordination, or loss of consciousness. Your potassium was found to be slightly low. Please refer to the attached handout regarding foods that are high in potassium. Please have this repeated with your family doctor. Please return to the emergency department with any new/concerning symptoms. Problem Qualifiers Primary Impression: Headache
[2016-08-13 17:44] LABS: BASO % 0.4 %; BASO ABS # 0.03 K/uL (0-0.2); COMPLETE YES; EOS % 1.3 %; HEMATOCRIT 46.6 % (42-52); IG% 0.1 %; LYMPH % 27.7 %; LYMPH ABS # 1.89 K/uL (1.2-3.4); MEAN CELL VOLUME 87.8 fL (80-100); MEAN CORPUSCULAR HEMOGLOBIN 31.3 pg (25-34); MEAN CORPUSCULAR HGB CONC 35.6 g/dl (32-36); MEAN PLATELET VOLUME 9.2 fL (7.4-10.4); MONO % 13.8 %; NEUT % 56.7 %; PLATELET COUNT 142 K/uL (130-400); RED BLOOD COUNT 5.31 M/uL (4.7-6.1); WHITE BLOOD COUNT 6.83 K/uL (4.8-10.8)
[2016-08-13 18:00] LABS: BUN/CREATININE RATIO 10.3 (10-20); CALCIUM 8.9 mg/dl (8.5-10.1); CREATININE 1.2 mg/dl (0.60-1.40); POTASSIUM 3.4 mmol/L (3.5-5.1)
[2016-08-13] MEDS ORDERED: MoRPHine SULFATE 4 MG/ML 1 ML CARP\\VIAL IV STA (18:17)
[2016-08-13] MEDS ORDERED: PROCHLORPERAZINE 5 MG/ML 2 ML VIAL IV STA (18:36)
[2016-08-13 19:40] VITALS: BP 178/108; PULSE 89; O2SAT 94
[2016-09-02] MEDS ORDERED: LAMO100T16 PO ×2 (09:51)
[2017-02-17] MEDS ORDERED: TRAZ100T29 PO (09:12)
== END 2016-08-13 19:50 | disposition home or self-care (01) ==
LOC: C.EDB 17:00 → C.EDD 19:50
DX: R51 Headache (principal); I10 Essential (primary) hypertension; E78.5 Hyperlipidemia, unspecified; G40.909 Epilepsy, unspecified, not intractable, without status epilepticus; F32.9 Major depressive disorder, single episode, unspecified; F41.9 Anxiety disorder, unspecified; M51.26 Other intervertebral disc displacement, lumbar region; Z79.899 Other long term (current) drug therapy; Z88.0 Allergy status to penicillin; Z88.3 Allergy status to other anti-infective agents; Z88.5 Allergy status to narcotic agent; Z88.8 Allergy status to other drugs, medicaments and biological substances

== ENCOUNTER → 2016-08-20 | Outpatient (CLI) | payer BC, OTHER ==
[~2016-08-20] MED LIST changes: -CZR25 PO; +LAMO100T16 PO; -LEVE500T13 PO; -THIA1TAB11 PO; +TRAZ100T29 PO
== END | disposition home or self-care (01) ==
LOC: C.LAB1850 12:23
PROVIDERS: ATTEND Allergy & Immunology Allergy
DX: G43.709 Chronic migraine without aura, not intractable, without status migrainosus (principal)

== ENCOUNTER 2016-09-07 22:31 | Emergency (ER) | payer BC, OTHER ==
[~2016-09-07] VITALS: Ht 180.3 cm; Wt 101.8 kg
[~2016-09-07 22:31] MED LIST changes: +PANT40TA2 PO; -PRT/40 PO; -TRAZ100T29 PO
[2016-09-07 22:39] VITALS: TEMP 36.4; Ht 180.3 cm; Wt 101.8 kg
[2016-09-07] MEDS ORDERED: SODIUM CHLORIDE 0.9% 1000ML 1,000 ML IV STA (23:04)
[2016-09-07] MEDS ORDERED: PROCHLORPERAZINE 5 MG/ML 2 ML VIAL IV STA (23:04)
[2016-09-07] MEDS ORDERED: DiphenhydrAMINE HCL 50 MG/ML VIAL IV STA (23:04)
[2016-09-07] MEDS ORDERED: MoRPHine SULFATE 4 MG/ML 1 ML CARP\\VIAL IV STA (23:04)
[2016-09-08 00:32] VITALS: BP 146/89; PULSE 71; O2SAT 97
--- NOTE | 2016-09-08 00:53 | EMERGENCY ROOM VISIT NOTE ---
History Report prepared by Aleena: Felisa Rutherford Under the Supervision of: Dr. Christopher Mccann M.D. First contact with patient: 22:58 Chief Complaint: HEADACHE Stated Complaint: MIGRAINE History of Present Illness The patient is a 46 year old male who presents to the Emergency Room with complaints of a worsening headache beginning 6 hours prior to arrival. The patient states that he has had a headache for the past 2 days but it worsened tonight. He describes the pain as throbbing. The patient is experiencing nausea and light sensitivity which is consistent with his typical migraine symptoms. The patient took Zofran, Benadryl and Fioricet 2 hours prior to arrival. He denies vomiting or fever. The patient is scheduled for another Botox injection on October 12. Source of History: patient Onset: 6 hours [employer] Position: head Quality: other (throbbing) Timing: worsening Modifying Factors (Worsening): other (light) Associated Symptoms: + headache, + nausea, No fevers, No vomiting Note: The patient is experiencing light sensitivity. Review of Systems See HPI for pertinent positives & negatives. A total of 10 systems reviewed and were otherwise negative. Past Medical & Surgical Medical Problems: (1) Altered mental status (2) Anxiety (3) chest pain (4) chest pain , allergy reaction (5) Depression (6) Elevated CK (7) Froin's syndrome (8) Hyperlipidemia Nec/Nos (9) Hypertension Nos (10) Lumbar Disc Displacement (11) Overdose (12) Status epilepticus (13) Suicide attempt (14) unresponsive resp failue, hypotensive, seizure Family History Cancer Diabetes mellitus Gallbladder disease Heart disease Hypertension Social History Smoking Status: Never Smoker Alcohol Use: none Drug Use: none Marital Status: Housing Status: lives with family Occupation Status: employed Current/Historical Medications Scheduled Amlodipine Besylate (Amlodipine Besylate), 5 MG PO DAILY Lamotrigine (Lamictal), 50 MG PO AMPM Pantoprazole (Pantoprazole Sodium), 40 MG PO DAILY Pravastatin Sodium (Pravastatin Sodium), 10 MG PO HS Sertraline HCl (Sertraline HCl), 100 MG PO DAILY Tizanidine (Tizanidine HCl), 4 MG PO BID Scheduled PRN Acetamin/Butalbital/Caffeine (Fioricet), 1-2 TABS PO BID PRN for Headache Ondasetron Odt (Zofran Odt), 4 MG SL TID PRN for Nausea Prochlorperazine Maleate (Prochlorperazine Maleate), 10 MG PO TID PRN for Nausea Sumatriptan Succinate (Imitrex), 100 MG PO UD PRN for Migraine Allergies Coded Allergies: Hydromorphone (Verified Allergy, Severe, SHORTNESS OF BREATH, 09/07/16) 1.5 hr after dilaudid iv in ed, he developed facial swelling/EDEMA TO UNDERNEATH LEFT EYE, pharyngeal and tongue sob, and wheezing, Penicillins (Verified Allergy, Severe, ALLERGY TO [id number] , 09/07/16) Doxycycline (Verified Allergy, Intermediate, BLISTERS/HIVES, 09/07/16) Clindamycin (Verified Allergy, Unknown, Unknown, 09/07/16) Eletriptan (Verified Adverse Reaction, Unknown, nausea/vomiting, 09/07/16) Physical Exam Vital Signs Date Time Temp Pulse Resp B/P Pulse Ox O2 Delivery O2 Flow Rate FiO2 09/08/16 00:32 71 18 146/89 97 09/07/16 22:39 36.4 98 18 158/101 97 Room Air Physical Exam Constitutional: Vital signs reviewed. Eyes: Pupils are equal round reactive to light. Conjunctiva are noninjected. ENT: Pharynx is clear without erythema or exudate. Mucous membranes are moist. Neck supple without meningeal signs. Respiratory: Clear to auscultation bilaterally. Breath sounds are equal bilaterally. Cardiovascular: Regular rate and rhythm. No rubs or gallops. GI: Soft, nondistended and nontender. Bowel sounds are present. Musculoskeletal: No peripheral edema. No lower extremity tenderness. Integumentary: No cyanosis. Neurological: The patient is awake and alert. Cranial nerves II-XII are intact. Motor is 5 out of 5 all extremities. Sensation is intact to light touch all extremities. Normal speech. No pronator drift. Psychiatric: Normal affect. Medical Decision & Procedures Medications Administered Medications (Trade) Dose Ordered Sig/Eunice Route Start Time Stop Time Status Last Admin Dose Admin Prochlorperazine Edisylate (Compazine Inj) 10 mg NOW STAT IV 09/07/16 23:04 09/07/16 23:06 DC 09/07/16 23:31 10 MG Diphenhydramine HCl 25 mg 25 mg NOW STAT IV 09/07/16 23:04 09/07/16 23:06 DC 09/07/16 23:30 25 MG Sodium Chloride (Nss 1000ml) 1,000 ml @ 999 mls/hr Q1H1M STAT IV 09/07/16 23:04 09/08/16 00:04 DC 09/07/16 23:31 999 MLS/HR Morphine Sulfate (MoRPHine SULFATE INJ) 4 mg NOW STAT IV 09/07/16 23:04 09/07/16 23:06 DC 09/07/16 23:31 4 MG ED Course 2301: The patient was evaluated in room A6. A complete history and physical exam was performed. 2304: Morphine Sulfate Inj 4 mg IV, Sodium Chloride 1,000 ml @ 999 mls/hr IV, Benadryl Inj 25 mg IV, Compazine Inj 10 mg IV. 0018: The patient is feeling better and would like to go home. 0021: Upon reevaluation, the patient appeared to have improvement of his symptoms. I discussed tonight's findings with him. He verbalized agreement of the treatment plan. He was discharged home. Medical Decision This is a 46-year-old male presents with a migraine headache. I did perform a limited focused review of portions of the patient's old chart on the electronic medical record. The patient was seen by pain management September 02. He received Botox and reported 50% relief of his symptoms. I did evaluate the patient as noted above. The patient is presenting with a headache consistent with his prior migraines. He is afebrile and neurologically intact. There is no reason to suspect an acute intracranial hemorrhage or meningitis. IV access was established. I did treat the patient with IV Compazine, Benadryl, normal saline and morphine IV. I did reassess the patient. He is feeling much better and ready for discharge. He was advised follow up with his doctor and given return instructions as outlined below. Impression Primary Impression: Acute headache Scribe Attestation The scribe's documentation has been prepared under my direct and personally reviewed by me in its entirety. I confirm that the note above accurately reflects all work, treatment, procedures, and medical decision making performed by me. Departure Information Dispostion Home / Self-Care Referrals Nigel Chowdary M.D. (PCP) Forms HOME CARE DOCUMENTATION FORM, IMPORTANT VISIT INFORMATION Patient Instructions ED Headache Migraine, My [facility] Additional Instructions You have been examined and treated today on an emergency basis only. This is not a substitute for, or an effort to provide, complete comprehensive medical care. It is impossible to recognize and treat all injuries or illnesses in a single emergency department visit. It is therefore important that you follow up closely with your physician. Call as soon as possible for an appointment. Return for worsening symptoms or if you develop fever, numbness or weakness on one side of your body, difficulties with your speech or walking, or any other concerning symptoms. Problem Qualifiers Primary Impression: Acute headache Headache type: unspecified Intractability: not intractable Qualified Codes : R51 - Headache
[2017-02-17] MEDS ORDERED: TRAZ100T29 PO (09:12)
== END 2016-09-08 00:32 | disposition home or self-care (01) ==
LOC: C.EDB 22:33 → C.EDA 09-08 00:32
DX: R51 Headache (principal); F41.9 Anxiety disorder, unspecified; F32.9 Major depressive disorder, single episode, unspecified; G95.89 Other specified diseases of spinal cord; E78.5 Hyperlipidemia, unspecified; I10 Essential (primary) hypertension; M51.26 Other intervertebral disc displacement, lumbar region; Z91.5 Personal history of self-harm; Z80.9 Family history of malignant neoplasm, unspecified; Z83.3 Family history of diabetes mellitus; Z83.79 Family history of other diseases of the digestive system; Z82.49 Family history of ischemic heart disease and other diseases of the circulatory system; Z79.899 Other long term (current) drug therapy

== ENCOUNTER 2016-09-29 14:11 | Emergency (ER) | payer BC, OTHER ==
[~2016-09-29] VITALS: Ht 180.3 cm; Wt 104.2 kg
[2016-09-29 14:13] VITALS: TEMP 37; Ht 180.3 cm; Wt 104.2 kg
[2016-09-29] MEDS ORDERED: DiphenhydrAMINE HCL 50 MG/ML VIAL IV STA (14:31)
[2016-09-29] MEDS ORDERED: SODIUM CHLORIDE 0.9% 1000ML 1,000 ML IV STA (14:31)
[2016-09-29] MEDS ORDERED: MoRPHine SULFATE 4 MG/ML 1 ML CARP\\VIAL IV STA (14:31)
[2016-09-29] MEDS ORDERED: PROCHLORPERAZINE 5 MG/ML 2 ML VIAL IV STA (14:31)
[2016-09-29 15:58] VITALS: BP 126/73; PULSE 70; O2SAT 97
--- NOTE | 2016-09-29 18:31 | EMERGENCY ROOM VISIT NOTE ---
History Report prepared by Aleena: Greg Painter Under the Supervision of: Dr. Christopher Mccann M.D. First contact with patient: 14:22 Chief Complaint: HEADACHE Stated Complaint: SEVERE MIGRAINE History of Present Illness The patient is a 46 year old male with a history of migraines who presents to the Emergency Room with complaints of a persistent migraine headache that started around 0300 this morning. He says that around noon he started getting auras. The patient rates the pain at its worst as a 9 out of 10 in severity and describes it as a throbbing pain behind both eyes. The patient notes that he typically only gets pain behind his right eye. He states that he gave himself a shot in his arm of quick-acting Imitrex earlier this afternoon, which dulled the pain a bit, but the pain quickly came back. He notes that he also been nauseous and sensitive to light. He took Zofran for the nausea. The patient denies any fevers, vomiting, recent falls or trauma to his head, or numbness or weakness in his arms or legs. The patient is scheduled for Botox on October 12. He states that he has been healthy recently. Source of History: patient Onset: 0 this morning Position: head Symptom Intensity: 9/10 at worst Quality: other (migraine, throbbing behind both eyes) Timing: other (persistent) Modifying Factors (Worsening): other (light) Modifying Factors (Relieving): other (Imitrex, which dulled the pain for a little bit) Associated Symptoms: + nausea, No fevers, No numbness (arms or legs), No vomiting, No weakness (arms or legs) Note: Associated symptoms: Light sensitive. Denies recent falls or head trauma. Review of Systems See HPI for pertinent positives & negatives. A total of 10 systems reviewed and were otherwise negative. Past Medical & Surgical Medical Problems: (1) Altered mental status (2) Anxiety (3) chest pain (4) chest pain , allergy reaction (5) Depression (6) Elevated CK (7) Froin's syndrome (8) Hyperlipidemia Nec/Nos (9) Hypertension Nos (10) Lumbar Disc Displacement (11) Overdose (12) Status epilepticus (13) Suicide attempt (14) unresponsive resp failue, hypotensive, seizure Family History Cancer Diabetes mellitus Gallbladder disease Heart disease Hypertension Social History Smoking Status: Never Smoker Alcohol Use: none Drug Use: none Marital Status: Housing Status: lives with family Occupation Status: employed Current/Historical Medications Scheduled Amlodipine Besylate (Amlodipine Besylate), 5 MG PO DAILY Lamotrigine (Lamictal), 50 MG PO AMPM Pantoprazole (Pantoprazole Sodium), 40 MG PO DAILY Pravastatin Sodium (Pravastatin Sodium), 10 MG PO HS Sertraline HCl (Sertraline HCl), 100 MG PO DAILY Tizanidine (Tizanidine HCl), 4 MG PO BID Scheduled PRN Acetamin/Butalbital/Caffeine (Fioricet), 1-2 TABS PO BID PRN for Headache Ondasetron Odt (Zofran Odt), 4 MG SL TID PRN for Nausea Prochlorperazine Maleate (Prochlorperazine Maleate), 10 MG PO TID PRN for Nausea Sumatriptan Succinate (Imitrex), 100 MG PO UD PRN for Migraine Allergies Coded Allergies: Hydromorphone (Verified Allergy, Severe, SHORTNESS OF BREATH, 09/07/16) 1.5 hr after dilaudid iv in ed, he developed facial swelling/EDEMA TO UNDERNEATH LEFT EYE, pharyngeal and tongue sob, and wheezing, Penicillins (Verified Allergy, Severe, ALLERGY TO [id number] , 09/07/16) Doxycycline (Verified Allergy, Intermediate, BLISTERS/HIVES, 09/07/16) Clindamycin (Verified Allergy, Unknown, Unknown, 09/07/16) Eletriptan (Verified Adverse Reaction, Unknown, nausea/vomiting, 09/07/16) Physical Exam Vital Signs Date Time Temp Pulse Resp B/P Pulse Ox O2 Delivery O2 Flow Rate FiO2 09/29/16 15:58 70 18 126/73 97 09/29/16 14:13 37.0 62 20 150/93 97 Room Air Physical Exam Constitutional: Vital signs reviewed. Eyes: Pupils are equal round reactive to light. Conjunctiva are noninjected. ENT: Pharynx is clear without erythema or exudate. Mucous membranes are moist. Neck supple without meningeal signs. Respiratory: Clear to auscultation bilaterally. Breath sounds are equal bilaterally. Cardiovascular: Regular rate and rhythm. No rubs or gallops. GI: Soft, nondistended and nontender. Bowel sounds are present. Musculoskeletal: No peripheral edema. He Integumentary: No cyanosis. Neurological: The patient is awake and alert. Cranial nerves II-XII are intact. Motor is 5 out of 5 all extremities. Sensation is intact to light touch all extremities. Normal speech. No pronator drift. Psychiatric: Normal affect. Medical Decision & Procedures Medications Administered Medications (Trade) Dose Ordered Sig/Eunice Route Start Time Stop Time Status Last Admin Dose Admin Prochlorperazine Edisylate (Compazine Inj) 10 mg NOW STAT IV 09/29/16 14:31 09/29/16 14:32 DC 09/29/16 14:46 10 MG Diphenhydramine HCl 50 mg 50 mg NOW STAT IV 09/29/16 14:31 09/29/16 14:32 DC 09/29/16 14:46 50 MG Sodium Chloride (Nss 1000ml) 1,000 ml @ 999 mls/hr Q1H1M STAT IV 09/29/16 14:31 09/29/16 15:31 DC 09/29/16 14:31 999 MLS/HR Morphine Sulfate (MoRPHine SULFATE INJ) 4 mg NOW STAT IV 09/29/16 14:31 09/29/16 14:32 DC 09/29/16 14:47 4 MG ED Course 1423: The patient was evaluated in room C12B. A complete history and physical exam was performed. 1431: Ordered Morphine Sulfate Inj 4 mg IV, NSS 1000 ml @ 999 mls/hr IV, Benadryl Inj 50 mg IV, Compazine Inj 10 mg IV. 1537: I reevaluated the patient and he feels better and wants to go home. The patient verbally expressed understanding and agreement of the treatment plan. The patient will be discharged. Medical Decision This is a 46-year-old male presents with a migraine headache with aura. I did perform a limited focused review of portions of the patient's old chart on the electronic medical record. The patient seen here by myself September 07 for a migraine headache. He was treated with Compazine, Benadryl and Morphine and felt better. I did evaluate the patient as noted above. The patient is presenting with a migraine headache consistent with his prior migraine headaches. He did have some relief with Imitrex but his headache persisted and so he presented here. He is neurologically intact. He does not have a fever. He has no meningeal signs. He denies any history of head injury. I initially wanted to treat patient with IM medication but he stated that he only gets better with IV medicines. IV access was established. I did treat him with IV Compazine, Benadryl, morphine and normal saline. I did reassess the patient. He did feel better and wanted to go home. He was advised follow up with his doctor discharged in good condition. Impression Primary Impression: Migraine with aura Scribe Attestation The scribe's documentation has been prepared under my direct and personally reviewed by me in its entirety. I confirm that the note above accurately reflects all work, treatment, procedures, and medical decision making performed by me. Departure Information Dispostion Home / Self-Care Referrals Nigel Chowdary M.D. (PCP) Forms HOME CARE DOCUMENTATION FORM, IMPORTANT VISIT INFORMATION Patient Instructions ED Headache Migraine, My [facility] Additional Instructions You have been examined and treated today on an emergency basis only. This is not a substitute for, or an effort to provide, complete comprehensive medical care. It is impossible to recognize and treat all injuries or illnesses in a single emergency department visit. It is therefore important that you follow up closely with your physician. Call as soon as possible for an appointment. Return for worsening symptoms or if you develop fever, numbness or weakness on one side of your body, difficulties with your speech or walking, or any other concerning symptoms. Problem Qualifiers Primary Impression: Migraine with aura Status migrainosus presence: without status migrainosus Intractability: not intractable Qualified Codes: G43.109 - Migraine with aura, not intractable, without status migrainosus
[2017-02-17] MEDS ORDERED: TRAZ100T29 PO (09:12)
== END 2016-09-29 16:00 | disposition home or self-care (01) ==
LOC: C.EDB 14:12 → C.EDC 16:00
DX: G43.109 Migraine with aura, not intractable, without status migrainosus (principal); F41.9 Anxiety disorder, unspecified; F32.9 Major depressive disorder, single episode, unspecified; G95.89 Other specified diseases of spinal cord; E78.5 Hyperlipidemia, unspecified; I10 Essential (primary) hypertension; M51.26 Other intervertebral disc displacement, lumbar region; Z83.3 Family history of diabetes mellitus; Z82.49 Family history of ischemic heart disease and other diseases of the circulatory system

== ENCOUNTER → 2016-11-12 | Outpatient (CLI) | payer BC, OTHER ==
[~2016-11-12] MED LIST changes: -LAMO100T16 PO; +TRAZ100T29 PO
== END | disposition home or self-care (01) ==
LOC: C.PATHSPEC 17:15
PROVIDERS: ATTEND Plastic Surgery
DX: L92.9 Granulomatous disorder of the skin and subcutaneous tissue, unspecified (principal)

== ENCOUNTER → 2017-02-01 | Outpatient (CLI) | payer BC, OTHER ==
[~2017-02-01] MED LIST changes: -PANT40TA2 PO; +PRT/40 PO
[2017-02-01 11:16] LABS: ALT/SGPT 21 U/L (12-78); AST/SGOT 7 U/L (15-37); BLOOD UREA NITROGEN 19 mg/dl (7-18); BUN/CREATININE RATIO 17.5 (10-20); CALCIUM 9.2 mg/dl (8.5-10.1); CARBON DIOXIDE 29 mmol/L (21-32); CHLORIDE 105 mmol/L (98-107); GLUCOSE 92 mg/dl (70-99); SODIUM 139 mmol/L (136-145)
[2017-02-01 11:23] LABS: ALB/GLOB RATIO 1.1 (0.9-2); ALKALINE PHOSPHATASE 112 U/L (45-117); CHOLESTEROL 192 mg/dl (0-200); CHOLESTEROL/HDL RATIO 4.4; HDL CHOLESTEROL 44 mg/dl; LDL CHOLESTEROL CALCULATED 120 mg/dl; TRIGLYCERIDES 141 mg/dl (0-150); VERY LOW DENSITY LIPOPROT CALC 28 mg/dl
== END | disposition home or self-care (01) ==
LOC: C.LABBC 08:45
PROVIDERS: ATTEND Internal Medicine Pulmonary Disease
DX: I10 Essential (primary) hypertension (principal); G95.89 Other specified diseases of spinal cord

== ENCOUNTER 2017-09-05 13:43 | Observation (INO) | payer BC, OTHER ==
[~2017-09-05] VITALS: Ht 180.3 cm; Wt 94.2 kg
[~2017-09-05 13:43] MED LIST changes: +PANT40TA2 PO; -PRT/40 PO
[2017-09-05] MEDS ORDERED: MoRPHine SULFATE 10 MG/ML CARP/VIAL IV STA ×3 (13:58→16:04)
[2017-09-05] MEDS ORDERED: DIAZEPAM INJ 5 MG/ML 2 ML CARP IV STA ×2 (13:58→17:16)
[2017-09-05] MEDS ORDERED: SODIUM CHLORIDE 0.9% 1000ML 1,000 ML IV STA (13:58)
--- NOTE | 2017-09-05 14:09 | EMERGENCY ROOM VISIT NOTE ---
History Report prepared by Aleena: Darian Chavez Under the Supervision of: Dr. Dre Asif M.D. First contact with patient: 13:52 Chief Complaint: BACK PAIN Stated Complaint: BACK PAIN SPASMS History of Present Illness The patient is a 47 year old male who presents to the Emergency Room with complaints of constant severe low back pain rated as 10/10 that began this morning. The patient states that he bent down to tie his shoe when his pain began suddenly. He states that he also has muscle spasms that began 2 hours ago and has worsening leg numbness; he notes that his left leg is chronically numb. He states that his pain worsens with movement. He states that he has had minimal relief with Advil and does not take any chronic pain medication. He has had 5 back surgeries (L5, S1 4 screws, L4/L5 plate and 4 screws) with his most recent surgery in 2003. He denies any loss of bladder or bowel control, leg swelling, and fevers. Source of History: patient Onset: this morning Position: back (lower) Symptom Intensity: severe (pain rated as 10/10) Timing: constant Modifying Factors (Worsening): movement Modifying Factors (Relieving): other (minimal relief with Advil\) Associated Symptoms: No fevers Note: Patient denies loss of bladder or bowel control, and leg swelling. Review of Systems See HPI for pertinent positives & negatives. A total of 10 systems reviewed and were otherwise negative. Past Medical & Surgical Medical Problems: (1) Altered mental status (2) Anxiety (3) chest pain (4) chest pain , allergy reaction (5) Depression (6) Elevated CK (7) Froin's syndrome (8) Hyperlipidemia Nec/Nos (9) Hypertension Nos (10) Lumbar Disc Displacement (11) Overdose (12) Status epilepticus (13) Suicide attempt (14) unresponsive resp failue, hypotensive, seizure Family History Cancer Diabetes mellitus Gallbladder disease Heart disease Hypertension Social History Smoking Status: Never Smoker Alcohol Use: none Drug Use: none Marital Status: Housing Status: lives with family Occupation Status: disabled Current/Historical Medications Scheduled Amlodipine Besylate (Amlodipine Besylate), 5 MG PO DAILY Pantoprazole (Pantoprazole Sodium), 40 MG PO DAILY Pravastatin Sodium (Pravastatin Sodium), 10 MG PO HS Sertraline HCl (Sertraline HCl), 200 MG PO DAILY Tizanidine (Tizanidine HCl), 4 MG PO BID Trazodone Hcl (Trazodone), 150 MG PO HS Scheduled PRN Acetamin/Butalbital/Caffeine (Fioricet), 1-2 TABS PO BID PRN for Headache Diazepam (Valium), 2 MG PO Q8 PRN for Muscle Spasms Ketorolac Tromethamine (Toradol), 10 MG PO Q6H PRN for Pain Ondasetron Odt (Zofran Odt), 4 MG SL TID PRN for Nausea Prochlorperazine Maleate (Prochlorperazine Maleate), 10 MG PO TID PRN for Nausea Sumatriptan Succinate (Imitrex), 100 MG PO UD PRN for Migraine Allergies Coded Allergies: Hydromorphone (Verified Allergy, Severe, SHORTNESS OF BREATH, 09/05/17) 1.5 hr after dilaudid iv in ed, he developed facial swelling/EDEMA TO UNDERNEATH LEFT EYE, pharyngeal and tongue sob, and wheezing, Penicillins (Verified Allergy, Severe, ALLERGY TO [id number] , 09/05/17) Doxycycline (Verified Allergy, Intermediate, BLISTERS/HIVES, 09/05/17) Clindamycin (Verified Allergy, Unknown, Unknown, 09/05/17) Lamotrigine (Unverified Allergy, Unknown, tremors, 09/05/17) Eletriptan (Verified Adverse Reaction, Unknown, nausea/vomiting, 09/05/17) Physical Exam Vital Signs Date Time Temp Pulse Resp B/P (MAP) Pulse Ox O2 Delivery O2 Flow Rate FiO2 09/05/17 17:23 72 18 108/68 96 Room Air 09/05/17 16:17 72 16 128/66 97 Nasal Cannula 3.0 09/05/17 15:24 75 18 133/73 97 Nasal Cannula 4.0 09/05/17 13:46 36.7 78 20 124/76 97 Room Air Physical Exam GENERAL: Patient is severely uncomfortable appearing and in moderate distress. EYES: No scleral icterus, unremarkable pupils. ENT: Mucous membranes moist, no nasal congestion. NECK: No masses appreciated, no meningismus, trachea is midline. RESPIRATORY: No dyspnea. Clear to auscultation and equal bilaterally. No wheeze , no rhonchi. CARDIOVASCULAR: Regular rate and rhythm. No murmurs, rubs, gallops appreciated. GASTROINTESTINAL: Abdomen soft, nontender, no peritonitis. Bowel sounds positive. No masses appreciated. BACK: No midline tenderness, no CVA tenderness EXTREMITIES: Normal motion all extremities, no cyanosis, no edema. NEUROLOGIC: Decreased sensation of left lateral foot (chronic). No neurological deficits otherwise. Alert and oriented, no acute motor or sensory deficits, no focal weakness, cranial nerves grossly intact. SKIN: No rash, no jaundice, no diaphoresis. Medical Decision & Procedures ER Provider Diagnostic Interpretation: Radiology results and stated below per my review and radiologist interpretation: CT SCAN OF THE LUMBAR SPINE WITHOUT IV CONTRAST CLINICAL HISTORY: Low back pain. COMPARISON STUDY: CT scan of the lumbar spine dated 09/30/2009. MRI of lumbar spine dated 06/09/2010. TECHNIQUE: CT scan of the lumbar spine is performed from the lower thoracic spine to the sacrum. Images are reviewed in the axial, sagittal, and coronal planes. IV contrast was not administered for this examination. A dose lowering technique was utilized adhering to the principles of ALARA. FINDINGS: The skeletal structures are well mineralized. There is no evidence of fracture or malalignment involving the lumbar spine. Vertebral body height and alignment are maintained. There is straightening of the lumbar lordosis. There has been discectomy at L4-L5 and L5-S1 with anterior fusion at these levels. There is near complete bony incorporation at the fused levels. The orthopedic hardware appears intact. There has also been fusion of the posterior elements at these levels. Left hemilaminectomy change is suggested at L5. The transverse and spinous processes appear intact. There is no evidence of spondylolysis. Anterior osteophytes are noted in the upper lumbar region. No lytic or blastic lesion is seen. A tiny hemangioma is noted in the body of L1. Mild disc space narrowing is seen at L2-L3 and L3-L4. Small disc bulges are noted at these levels. There is no CT evidence of large disc herniation. The visualized sacrum and bony pelvis appear intact. The paraspinous soft tissues are within normal limits. IMPRESSION: 1. No acute bony abnormality is seen involving the lumbar spine. 2. Postoperative and mild spondylotic change as above. Electronically signed by: Venkatesh Mckeon M.D. 09/05/2017 4:43 PM Dictated Date/Time: 09/05/2017 4:[address] SCAN OF THE ABDOMEN AND PELVIS WITHOUT IV CONTRAST CLINICAL HISTORY: Low back pain. COMPARISON STUDY: KUB dated 05/12/2016. TECHNIQUE: CT scan of the abdomen and pelvis is performed from the lung bases to the proximal femora. Images are reviewed in the axial, sagittal, and coronal planes. IV contrast was not administered for this examination as per the referring clinician. A dose lowering technique was utilized adhering to the principles of ALARA. CT DOSE: 1350.79 mGy.cm FINDINGS: Lung bases: The heart is top normal in size and without pericardial effusion. There are coronary artery calcifications. The lung bases are clear. Liver: The unenhanced liver is normal in size, contour, and attenuation. There is no intrahepatic biliary ductal dilatation. Gallbladder: Unremarkable. Spleen: The spleen is enlarged measuring 15.0 cm in length. Pancreas: Unremarkable. Adrenal glands: Unremarkable. Kidneys: The unenhanced kidneys are normal in size and without hydronephrosis. There are no renal calculi identified. There is no evidence of contour deforming renal mass lesion. Abdominal vasculature: The abdominal aorta is normal in course and caliber. Bowel: The small bowel and colon are normal in course and caliber. The appendix is well-visualized and normal. Peritoneum: There is no intraperitoneal free air or abdominal ascites. There is a fat-containing umbilical hernia. Lymphadenopathy: None. Pelvic viscera: The bladder, prostate, and seminal vesicles are normal as visualized. Skeletal structures: There are postoperative changes from anterior fusion from L4-S1. No lytic or blastic lesions are seen. IMPRESSION: 1. There are no acute infectious or inflammatory findings in the abdomen or pelvis. 2. Splenomegaly. 3. Additional findings as above. Electronically signed by: Venkatesh Mckeon M.D. 09/05/2017 4:41 PM Dictated Date/Time: 09/05/2017 4:36 PM Laboratory Results 09/05/17 16:50 Red Blood Count 4.96, Mean Corpuscular Volume 86.7, Mean Corpuscular Hemoglobin 30.2, Mean Corpuscular Hemoglobin Concent 34.9, Mean Platelet Volume 8.8, Neutrophils (%) (Auto) 61.0, Lymphocytes (%) (Auto) 27.7, Monocytes (%) (Auto) 7.5, Eosinophils (%) (Auto) 3.4, Basophils (%) (Auto) 0.3, Neutrophils # (Auto) 4.30, Lymphocytes # (Auto) 1.95, Monocytes # (Auto) 0.53, Eosinophils # (Auto) 0.24, Basophils # (Auto) 0.02 09/05/17 16:50 Test 09/05/17 16:50 White Blood Count 7.05 K/uL (4.8-10.8) Red Blood Count 4.96 M/uL (4.7-6.1) Hemoglobin 15.0 g/dL (14.0-18.0) Hematocrit 43.0 % (42-52) Mean Corpuscular Volume 86.7 fL (80-100) Mean Corpuscular Hemoglobin 30.2 pg (25-34) Mean Corpuscular Hemoglobin Concent 34.9 g/dl (32-36) Platelet Count 129 K/uL (130-400) Mean Platelet Volume 8.8 fL (7.4-10.4) Neutrophils (%) (Auto) 61.0 % Lymphocytes (%) (Auto) 27.7 % Monocytes (%) (Auto) 7.5 % Eosinophils (%) (Auto) 3.4 % Basophils (%) (Auto) 0.3 % Neutrophils # (Auto) 4.30 K/uL (1.4-6.5) Lymphocytes # (Auto) 1.95 K/uL (1.2-3.4) Monocytes # (Auto) 0.53 K/uL (0.11-0.59) Eosinophils # (Auto) 0.24 K/uL (0-0.5) Basophils # (Auto) 0.02 K/uL (0-0.2) RDW Standard Deviation 43.8 fL (36.4-46.3) RDW Coefficient of Variation 13.9 % (11.5-14.5) Immature Granulocyte % (Auto) 0.1 % Immature Granulocyte # (Auto) 0.01 K/uL (0.00-0.02) Anion Gap 7.0 mmol/L (3-11) Est Creatinine Clear Calc Drug Dose 94.2 ml/min Estimated GFR () 86.4 Estimated GFR (Non- 74.6 BUN/Creatinine Ratio 21.4 (10-20) Calcium Level 8.6 mg/dl (8.5-10.1) C-Reactive Protein 0.56 mg/dl (0-0.29) Laboratory results as reviewed by me. Medications Administered Medications (Trade) Dose Ordered Sig/Eunice Route Start Time Stop Time Status Last Admin Dose Admin Sodium Chloride 1,000 ml @ 999 mls/hr Q1H1M STAT IV 09/05/17 13:58 09/05/17 14:58 DC 09/05/17 14:13 999 MLS/HR Diazepam (Valium Inj) 10 mg NOW STAT IV 09/05/17 13:58 09/05/17 13:59 DC 09/05/17 14:12 10 MG Morphine Sulfate (MoRPHine SULFATE INJ) 6 mg NOW STAT IV 09/05/17 13:58 09/05/17 13:59 DC 09/05/17 14:12 6 MG Morphine Sulfate (MoRPHine SULFATE INJ) 8 mg NOW STAT IV 09/05/17 14:33 09/05/17 14:34 DC 09/05/17 14:42 8 MG Diphenhydramine HCl (Benadryl Inj) 50 mg NOW STAT IV 09/05/17 14:38 09/05/17 14:39 DC 09/05/17 14:42 50 MG Ketorolac Tromethamine (Toradol Inj) 30 mg NOW STAT IV 09/05/17 14:59 09/05/17 15:00 DC 09/05/17 15:24 30 MG Morphine Sulfate (MoRPHine SULFATE INJ) 8 mg NOW STAT IV 09/05/17 16:04 09/05/17 16:05 DC 09/05/17 16:20 8 MG Diazepam (Valium Inj) 10 mg NOW STAT IV 09/05/17 17:16 09/05/17 17:17 DC 09/05/17 17:22 10 MG ED Course 1352: The patient was evaluated in room B5. A complete history and physical exam was performed. 1435: He requests something for nausea as Morphine was making him feel mildly nauseous. 1459: He states he has no improvement of his pain. I noted he is mildly hypoxic. His O2 saturation is 84% on room air. 1521: I checked on the patient and he is about to get Toradol. He is agreeable to CT of abdomen and pelvis. 1635: I checked on the patient and his symptoms have mildly improved. He states that he still has significant lower back pain. 1715: I checked on the patient and he notes his spams returning. I ordered Valium. He is agreeable to MRI. 1744: Discussed the patient's case with Dr. Miller. The patient will be evaluated for further treatment and disposition. 1749: Upon reevaluation, the patient is resting. Discussed results and treatment plan with the patient. He verbalized understanding and agreement with the treatment plan. The patient will be evaluated for further management. Medical Decision Differential: Musculoskeletal, Disc Herniation, Fracture, Cord Compression, Discitis, Infectious, Aortic Pathology, Renal Colic, UTI/Pyelonephritis, Acute Exacerbation of Chronic Pain, Sciatica, Cauda Equina, amongst other pathologies entertained. 47 yr old male with history lumbar back surgery though no issues in last decade arrives for acute low back pain following bending over this morning. Complaining increased paraesthesias bilateral feet but no other neuro deficits. Requiring many rounds of benzos, narcs, toradol, fluids without much improvement. CT scan without evidence retroperitoneal issue nor stone nor fracture. Labs look OK with non-specific minimal bump CRP. This does not sound like epidural abscess nor hematoma and he is adamant about not being IV drug user. Review PDMP he has no recent narc prescriptions. He does have extensive pain history though this is clearly beyond just pain med seeking and he clearly is in quite some discomfort. No rashes. Will need to have MRI but as Bhumi will be awaiting to get this for some time. As clerodrigory he won't be able to get home despite what MRI says he will need to come in. I do not feel that IV steroids indicated unless MRI were to show something of note requiring it. WBC/BMP looking OK. Hospitalist consulted and patient brought in to their service. Medication Reconcilliation Current Medication List: was personally reviewed by me Blood Pressure Screening Patient's blood pressure: Normal blood pressure Blood pressure disposition: Did not require urgent referral Consults Time Called: 1739 Consulting Physician: Dr. Miller Returned Call: [phone] Discussed the patient's case. The patient will be evaluated for further treatment and disposition. Impression Primary Impression: Intractable back pain Scribe Attestation The scribe's documentation has been prepared under my direction and personally reviewed by me in its entirety. I confirm that the note above accurately reflects all work, treatment, procedures, and medical decision making performed by me. Departure Information Prescriptions Diazepam (VALIUM) 2 Mg Tab 2 MG PO Q8 Y for Muscle Spasms, #5 TAB Prov: Florecita Bush, DO 09/06/17 Ketorolac Tromethamine (TORADOL) 10 Mg Tab 10 MG PO Q6H Y for Pain for 5 Days, #20 TAB Prov: Florecita Bush, DO 09/06/17 Referrals Nigel Chowdary M.D. (PCP) Patient Instructions [facility]
[2017-09-05] MEDS ORDERED: DiphenhydrAMINE HCL 50 MG/ML VIAL IV STA (14:38)
[2017-09-05] MEDS ORDERED: DiphenhydrAMINE HCL 50 MG/ML VIAL ONE (14:39)
[2017-09-05] MEDS ORDERED: KETOROLAC TROMETHAMINE 30 MG/ML VIAL IV STA (14:59)
--- NOTE | 2017-09-05 16:43 | DIAGNOSTIC IMAGING REPORT ---
CT SCAN OF THE ABDOMEN AND PELVIS WITHOUT IV CONTRAST CLINICAL HISTORY: Low back pain. COMPARISON STUDY: KUB dated 05/12/2016. TECHNIQUE: CT scan of the abdomen and pelvis is performed from the lung bases to the proximal femora. Images are reviewed in the axial, sagittal, and coronal planes. IV contrast was not administered for this examination as per the referring clinician. A dose lowering technique was utilized adhering to the principles of ALARA. CT DOSE: 1350.79 mGy.cm FINDINGS: Lung bases: The heart is top normal in size and without pericardial effusion. There are coronary artery calcifications. The lung bases are clear. Liver: The unenhanced liver is normal in size, contour, and attenuation. There is no intrahepatic biliary ductal dilatation. Gallbladder: Unremarkable. Spleen: The spleen is enlarged measuring 15.0 cm in length. Pancreas: Unremarkable. Adrenal glands: Unremarkable. Kidneys: The unenhanced kidneys are normal in size and without hydronephrosis. There are no renal calculi identified. There is no evidence of contour deforming renal mass lesion. Abdominal vasculature: The abdominal aorta is normal in course and caliber. Bowel: The small bowel and colon are normal in course and caliber. The appendix is well-visualized and normal. Peritoneum: There is no intraperitoneal free air or abdominal ascites. There is a fat-containing umbilical hernia. Lymphadenopathy: None. Pelvic viscera: The bladder, prostate, and seminal vesicles are normal as visualized. Skeletal structures: There are postoperative changes from anterior fusion from L4-S1. No lytic or blastic lesions are seen. IMPRESSION: 1. There are no acute infectious or inflammatory findings in the abdomen or pelvis. 2. Splenomegaly. 3. Additional findings as above. Electronically signed by: Venkatesh Mckeon M.D. 09/05/2017 4:41 PM Dictated Date/Time: 09/05/2017 4:36 PM
--- NOTE | 2017-09-05 16:44 | DIAGNOSTIC IMAGING REPORT ---
CT SCAN OF THE LUMBAR SPINE WITHOUT IV CONTRAST CLINICAL HISTORY: Low back pain. COMPARISON STUDY: CT scan of the lumbar spine dated 09/30/2009. MRI of lumbar spine dated 06/09/2010. TECHNIQUE: CT scan of the lumbar spine is performed from the lower thoracic spine to the sacrum. Images are reviewed in the axial, sagittal, and coronal planes. IV contrast was not administered for this examination. A dose lowering technique was utilized adhering to the principles of ALARA. FINDINGS: The skeletal structures are well mineralized. There is no evidence of fracture or malalignment involving the lumbar spine. Vertebral body height and alignment are maintained. There is straightening of the lumbar lordosis. There has been discectomy at L4-L5 and L5-S1 with anterior fusion at these levels. There is near complete bony incorporation at the fused levels. The orthopedic hardware appears intact. There has also been fusion of the posterior elements at these levels. Left hemilaminectomy change is suggested at L5. The transverse and spinous processes appear intact. There is no evidence of spondylolysis. Anterior osteophytes are noted in the upper lumbar region. No lytic or blastic lesion is seen. A tiny hemangioma is noted in the body of L1. Mild disc space narrowing is seen at L2-L3 and L3-L4. Small disc bulges are noted at these levels. There is no CT evidence of large disc herniation. The visualized sacrum and bony pelvis appear intact. The paraspinous soft tissues are within normal limits. IMPRESSION: 1. No acute bony abnormality is seen involving the lumbar spine. 2. Postoperative and mild spondylotic change as above. Electronically signed by: Venkatesh Mckeon M.D. 09/05/2017 4:43 PM Dictated Date/Time: 09/05/2017 4:30 PM
[2017-09-05 17:02] LABS: BASO % 0.3 %; BASO ABS # 0.02 K/uL (0-0.2); EOS % 3.4 %; EOS ABS # 0.24 K/uL (0-0.5); IG# 0.01 K/uL (0.00-0.02); LYMPH % 27.7 %; LYMPH ABS # 1.95 K/uL (1.2-3.4); MEAN CELL VOLUME 86.7 fL (80-100); MEAN CORPUSCULAR HEMOGLOBIN 30.2 pg (25-34); MEAN CORPUSCULAR HGB CONC 34.9 g/dl (32-36); MEAN PLATELET VOLUME 8.8 fL (7.4-10.4); MONO % 7.5 %; MONO ABS # 0.53 K/uL (0.11-0.59); PLATELET COUNT 129 K/uL (130-400); RED CELL DISTRIBUTION WIDTH CV 13.9 % (11.5-14.5); RED CELL DISTRIBUTION WIDTH SD 43.8 fL (36.4-46.3); WHITE BLOOD COUNT 7.05 K/uL (4.8-10.8)
[2017-09-05 17:24] LABS: CALCIUM 8.6 mg/dl (8.5-10.1); CREATININE 1.16 mg/dl (0.60-1.40)
[2017-09-05] MEDS ORDERED: ACETAMINOPHEN 325 MG TAB PO PRN (18:30)
[2017-09-05] MEDS ORDERED: DIAZEPAM INJ 5 MG/ML 2 ML CARP IV PRN (18:30)
[2017-09-05] MEDS ORDERED: KETOROLAC TROMETHAMINE 30 MG/ML VIAL IV PRN (18:30)
[2017-09-05] MEDS ORDERED: MAGNESIUM HYDROXIDE SUSP 30 ML UDC PO PRN (18:30)
[2017-09-05] MEDS ORDERED: MoRPHine SULFATE 2 MG/ML CARP IV PRN (18:30)
[2017-09-05] MEDS ORDERED: ONDANSETRON INJ 2 MG/ML 2 ML VIAL IV PRN (18:30)
[2017-09-05] MEDS ORDERED: SUMATRIPTAN SUCC TAB 100 MG TAB PO PRN (18:45)
[2017-09-05] MEDS ORDERED: PROCHLORPERAZINE MALEATE 10 MG TAB PO PRN (18:45)
[2017-09-05] MEDS ORDERED: ONDANSETRON 4MG OD TAB SL PRN (18:45)
[2017-09-05] MEDS ORDERED: BUTALBITAL/ACETAMIN/CAFFEINE TAB PO PRN (18:45)
--- NOTE | 2017-09-05 18:48 | History and Physical ---
History & Physical Date & Time of Service: Sep 05, 2017 at 18:35 Chief Complaint: Back Pain Spasms Primary Care Physician: Nigel Chowdary M.D. History of Present Illness Source: patient 47 y/o M c/o intractable back pain. Pt has had back surgery x5 and always has LBP to some level, however this AM he bent down to tie his shoes and had sudden onset of "pain like I had not had in a very long time". Pain is usually along his lumbar spine and into his L LE, however today this pain was b/l lumbar spine and into both LE and much worse than usual. He does have some L foot numbness at times, but since this started today, he has had b/l LE numbness and tingling. He does have limited L toe movement at baseline s/p his surgeries and this is unchanged. He has increased pain in all positions at present. If he had to, he could bear weight and walk, but his pain is made even worse by this. He has no bowel or bladder incontinence and no hx of this prior with other back issues. He has pain and muscle spasms are making this pain worse. He felt that the toradol did not help much, but that the valium did help take his pain from a 10/10 to 9/10 "because it shut down the spasms for a little while". These are now returned. Pt has had back surgery with a surgeon in [place] who has retired. He had surgeries x2 at [facility] and his most recent was at [facility]. He follows with Dr. Chowdhury for injections. He was seen by Dr North in the past, however was sent to other surgeons due to the complicated nature of his case. He has not seen any other local surgeons. He follows with Dr. Henderson for PM also. Pt states that he cannot have steroids due to intense anxiety reaction with this medication. Past Medical/Surgical History Medical Problems: (1) Acidosis (2) Acute allergic reaction (3) Acute exacerbation of chronic low back pain (4) Acute exacerbation of chronic low back pain (5) Acute headache (6) Acute thoracic back pain (7) Altered mental status (8) Anxiety (9) Back pain (10) Back pain (11) Back pain (12) Back pain (13) Back pain with sciatica (14) chest pain (15) chest pain , allergy reaction (16) Chronic back pain (17) Chronic headache (18) Depression (19) Dizziness (20) Elevated CK (21) Elevated CK (22) Exacerbation of chronic back pain (23) Exacerbation of chronic back pain (24) Exacerbation of chronic back pain (25) Fall (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 (27) Headache (28) Headache (29) Headache (30) Headache (31) Hyperlipidemia Nec/Nos (32) Hypertension Nos (33) Hypoxia (34) Intractable headache (35) Low back pain (36) Low back pain (37) Lower back pain (38) Lumbar Disc Displacement (39) Migraine (40) Migraine (41) Migraine (42) Migraine (43) Migraine (44) Migraine (45) Migraine (46) Migraine (47) Migraine (48) Migraine headache (49) Migraine with aura (50) Mood disorder (51) Mood disorder (52) Nasal fracture (53) Nasal laceration (54) Nausea (55) Nausea & vomiting (56) Overdose (57) Overdose (58) Precordial chest pain (59) Renal insufficiency (60) Respiratory failure (61) Status epilepticus (62) Suicide attempt (63) Tremor (64) Tremor (65) Tremor (66) Unresponsive (67) unresponsive resp failue, hypotensive, seizure (68) Vomiting and diarrhea Family History Family history was reviewed; no changes noted. Social History Smoking Status: Never Smoker Alcohol Use: occasionally (2-3 beers per month) Drug Use: none Marital Status: Housing status: lives with family Occupational Status: disabled Immunizations History of Influenza Vaccine: Unknown History of Tetanus Vaccine?: Unknown Tetanus Immunization Date: Jan 14, 2008 History of Pneumococcal: Unknown History of Hepatitis B Vaccine: Unknown Hepatitis Immunization Date: Jan 14, 2008 Allergies Coded Allergies: Hydromorphone (Verified Allergy, Severe, SHORTNESS OF BREATH, 09/05/17) 1.5 hr after dilaudid iv in ed, he developed facial swelling/EDEMA TO UNDERNEATH LEFT EYE, pharyngeal and tongue sob, and wheezing, Penicillins (Verified Allergy, Severe, ALLERGY TO [id number] , 09/05/17) Doxycycline (Verified Allergy, Intermediate, BLISTERS/HIVES, 09/05/17) Clindamycin (Verified Allergy, Unknown, Unknown, 09/05/17) Lamotrigine (Unverified Allergy, Unknown, tremors, 09/05/17) Eletriptan (Verified Adverse Reaction, Unknown, nausea/vomiting, 09/05/17) Home Medications Scheduled Amlodipine Besylate (Amlodipine Besylate), 5 MG PO DAILY Pantoprazole (Pantoprazole Sodium), 40 MG PO DAILY Pravastatin Sodium (Pravastatin Sodium), 10 MG PO HS Sertraline HCl (Sertraline HCl), 200 MG PO DAILY Tizanidine (Tizanidine HCl), 4 MG PO BID Trazodone Hcl (Trazodone), 150 MG PO HS Scheduled PRN Acetamin/Butalbital/Caffeine (Fioricet), 1-2 TABS PO BID PRN for Headache Ondasetron Odt (Zofran Odt), 4 MG SL TID PRN for Nausea Prochlorperazine Maleate (Prochlorperazine Maleate), 10 MG PO TID PRN for Nausea Sumatriptan Succinate (Imitrex), 100 MG PO UD PRN for Migraine Review of Systems Pertinent positives and negatives reviewed in HPI--all others negative Physical Exam Vital Signs Date Time Temp Pulse Resp B/P (MAP) Pulse Ox O2 Delivery O2 Flow Rate FiO2 09/05/17 17:23 72 18 108/68 96 Room Air 09/05/17 16:17 72 16 128/66 97 Nasal Cannula 3.0 09/05/17 15:24 75 18 133/73 97 Nasal Cannula 4.0 09/05/17 13:46 36.7 78 20 124/76 97 Room Air General Appearance: WD/WN, no apparent distress Head: normocephalic, atraumatic Eyes: normal inspection, sclerae normal Respiratory/Chest: normal breath sounds, no respiratory distress Cardiovascular: regular rate, rhythm, no edema Abdomen/GI: non tender, soft Extremities/Musculoskelatal: no calf tenderness, no pedal edema Neurologic/Psych: alert, oriented x 3, + pertinent finding (able to wiggle toes and lift LE, however limited due to pain) Skin: normal color, warm/dry Diagnostics Laboratory Results Results Past 24 Hours Test 09/05/17 16:50 Range/Units White Blood Count 7.05 4.8-10.8 K/uL Red Blood Count 4.96 4.7-6.1 M/uL Hemoglobin 15.0 14.0-18.0 g/dL Hematocrit 43.0 42-52 % Mean Corpuscular Volume 86.7 80-100 fL Mean Corpuscular Hemoglobin 30.2 25-34 pg Mean Corpuscular Hemoglobin Concent 34.9 32-36 g/dl Platelet Count 129 130-400 K/uL Mean Platelet Volume 8.8 7.4-10.4 fL Neutrophils (%) (Auto) 61.0 % Lymphocytes (%) (Auto) 27.7 % Monocytes (%) (Auto) 7.5 % Eosinophils (%) (Auto) 3.4 % Basophils (%) (Auto) 0.3 % Neutrophils # (Auto) 4.30 1.4-6.5 K/uL Lymphocytes # (Auto) 1.95 1.2-3.4 K/uL Monocytes # (Auto) 0.53 0.11-0.59 K/uL Eosinophils # (Auto) 0.24 0-0.5 K/uL Basophils # (Auto) 0.02 0-0.2 K/uL RDW Standard Deviation 43.8 36.4-46.3 fL RDW Coefficient of Variation 13.9 11.5-14.5 % Immature Granulocyte % (Auto) 0.1 % Immature Granulocyte # (Auto) 0.01 0.00-0.02 K/uL Sodium Level 138 136-145 mmol/L Potassium Level 4.0 3.5-5.1 mmol/L Chloride Level 107 98-107 mmol/L Carbon Dioxide Level 24 21-32 mmol/L Anion Gap 7.0 3-11 mmol/L Blood Urea Nitrogen 25 7-18 mg/dl Creatinine 1.16 0.60-1.40 mg/dl Est Creatinine Clear Calc Drug Dose 94.2 ml/min Estimated GFR () 86.4 Estimated GFR (Non- 74.6 BUN/Creatinine Ratio 21.4 10-20 Random Glucose 116 70-99 mg/dl Calcium Level 8.6 8.5-10.1 mg/dl C-Reactive Protein 0.56 0-0.29 mg/dl Diagnostic Radiology CT lumbar spine: FINDINGS: The skeletal structures are well mineralized. There is no evidence of fracture or malalignment involving the lumbar spine. Vertebral body height and alignment are maintained. There is straightening of the lumbar lordosis. There has been discectomy at L4-L5 and L5-S1 with anterior fusion at these levels. There is near complete bony incorporation at the fused levels. The orthopedic hardware appears intact. There has also been fusion of the posterior elements at these levels. Left hemilaminectomy change is suggested at L5. The transverse and spinous processes appear intact. There is no evidence of spondylolysis. Anterior osteophytes are noted in the upper lumbar region. No lytic or blastic lesion is seen. A tiny hemangioma is noted in the body of L1. Mild disc space narrowing is seen at L2-L3 and L3-L4. Small disc bulges are noted at these levels. There is no CT evidence of large disc herniation. The visualized sacrum and bony pelvis appear intact. The paraspinous soft tissues are within normal limits. CT AP: splenomegaly Impression Assessment and Plan 47 y/o M who was admitted for observation on 09/05 for intractable low back pain Intractable low back pain: CT L-spine is neg for new issues He has had recent injections for the L2/3, L3/4 small disc bulges, those are not new and no hardware issues noted CBC, PRP WNL Elevated CRP noted, afebrile CT AP noted only for splenomegaly Toradol, valium, morphine PRN Has seen Dr. Mejía in the past, c/s pending Ideally would try IV steroids, however pt refuses due to anxiety/PTSD worsening with steroids MRI pending Follows with Dr. Chowdhury and Dr. Henderson if needed HTN: continue home meds Anxiety/depression/PTSD: continue home meds Status epilepticus: no current seizure medications Reports that neuro feels pt has issues with CSF transfer, Froin's syndrome Remote hx of seizures Other: Full code Reg diet SCDs for DVT proph given potential need for intervention and risk for spinal bleeding if so Resuscitation Status VTE Prophylaxis Will order VTE Prophylaxis: Yes
[2017-09-05] MEDS ORDERED: IV FLUIDS COMPLETED PRN (19:15)
[2017-09-05] MEDS ORDERED: MoRPHine SULFATE 4 MG/ML 1 ML CARP\\VIAL IM STA (20:13)
[2017-09-05 20:15] VITALS: BP 126/82; PULSE 66; TEMP 36.6; O2SAT 96; Ht 180.3 cm; Wt 94.2 kg
[2017-09-05] MEDS ORDERED: KETOROLAC TROMETHAMINE 15 MG/ML VIAL IV. PRN (20:30)
[2017-09-05] MEDS ORDERED: MoRPHine SULFATE 4 MG/ML 1 ML CARP\\VIAL IV PRN (20:30)
[2017-09-05] MEDS ORDERED: MoRPHine SULFATE 4 MG/ML 1 ML CARP\\VIAL IV STA (20:42)
[2017-09-05] MEDS ORDERED: NURSING VERBAL MED ORDER ONE (20:45)
[2017-09-05] MEDS ORDERED: LORAZEPAM INJ 0.5 MG in SYRINGE 0.75 ML IV PRN (20:45)
[2017-09-05] MEDS ORDERED: TRAZODONE HCL 100 MG TAB PO SCH (21:00)
[2017-09-05] MEDS ORDERED: PRAVASTATIN SOD 10 MG TAB PO SCH (21:00)
--- NOTE | 2017-09-05 22:37 | DIAGNOSTIC IMAGING REPORT ---
MRI OF THE LUMBAR SPINE WITHOUT IV CONTRAST CLINICAL HISTORY: Low back pain. COMPARISON STUDY: CT of the lumbar spine performed the same day, 09/05/2017. MRI of the lumbar spine dated 04/01/2015. TECHNIQUE: MRI of the lumbar spine is performed utilizing various T1 and T2-weighted sequences in the axial and sagittal planes. IV contrast was not administered for this examination. FINDINGS: Lumbar spine: Vertebral body height and alignment are maintained throughout the lumbar spine. There is straightening of the lumbar lordosis. The transverse and spinous processes appear intact. There is no evidence of spondylolysis. There are postoperative changes from anterior fusion seen from L4 to S1. There is complete bony incorporation at these levels. No destructive osseous lesion is seen. A hemangioma is incidentally noted in the body of L1. Minimal degenerative endplate change is seen at T11-T12 and T12-L1. Intervertebral discs: There has been discectomy at L4-L5 and L5-S1. Mild disc desiccation and loss of height are seen at L2-L3. Spinal cord: The visualized spinal cord is normal in morphology and signal intensity. The conus medullaris terminates at the T12-L1 interspace. The nerve roots of the cauda equina are normal in morphology. L1-L2: Unremarkable. L2-L3: There is minimal posterior disc bulge with annular fissure. No significant acquired compromise of the central canal is identified. The neural foramina are patent. L3-L4: There is minimal disc bulge. The central canal and neural foramina are patent. L4-L5: The central canal and neural foramina are patent. Mild facet arthropathy is of no consequence. L5-S1: The central canal and neural foramina appear patent. Lateral marginal osteophytes and facet arthropathy, left greater than right may abut the exiting L5 nerve roots. Sacrum: The visualized sacrum is normal in morphology and signal intensity. Soft tissues: The paraspinous musculature is normal in appearance. The psoas muscles are normal and symmetric. The partially imaged retroperitoneal structures are grossly unremarkable but incompletely assessed. IMPRESSION: 1. There is no disc herniation, central canal stenosis, or significant neural foraminal stenosis seen throughout the lumbar spine. 2. Postoperative and mild spondylotic change as above. 3. No destructive bony process is identified. Dictated: 09/05/2017 9:56 PM Transcribed: 09/05/2017 10:36 PM [email or web address] Electronically signed by: Venkatesh Mckeon M.D. 09/05/2017 10:38 PM Dictated Date/Time: 09/05/2017 9:56 PM
[2017-09-05 23:04] VITALS: BP 109/70; PULSE 59; TEMP 37; O2SAT 96
[2017-09-06] VITALS: O2SAT 96
[2017-09-06 07:02] VITALS: BP 111/68; PULSE 60; TEMP 36.3; O2SAT 97
[2017-09-06 07:23] VITALS: O2SAT 96
[2017-09-06] MEDS ORDERED: PANTOprazole SOD 40 MG TAB PO SCH (09:00)
[2017-09-06] MEDS ORDERED: AMLODIPINE BESYLATE 5 MG TAB PO SCH (09:00)
[2017-09-06] MEDS ORDERED: SERTRALINE HCL 100 MG TAB PO SCH (09:00)
[2017-09-06 09:28] VITALS: O2SAT 96
[2017-09-06] MEDS ORDERED: KETO10TA PO (11:52)
[2017-09-06] MEDS ORDERED: DIAZ2TAB2 PO (11:52)
--- NOTE | 2017-09-06 11:53 | Discharge Instructions ---
Discharge Instructions Date of Service Sep 06, 2017. Admission Reason for Admission: Intractable Back Pain Discharge Discharge Diagnosis / Problem: Intractable back pain Discharge Goals Goal(s): Decrease discomfort, Improve function, Increase independence Activity Recommendations Activity Limitations: resume your previous activity . Instructions / Follow-Up Instructions / Follow-Up Dr. Chowdhury as scheduled prior to admission Orthopedics and pain management if further assessment is needed You DO NOT need to fill the valium prescription unless you start having muscle spasms again. Current Hospital Diet Patient's current hospital diet: Regular Diet Discharge Diet Recommended Diet: Regular Diet Pending Studies Studies pending at discharge: no Medical Emergencies . Who to Call and When: Medical Emergencies: If at any time you feel your situation is an emergency, please call 911 immediately. . Non-Emergent Contact Non-Emergency issues call your: Primary Care Provider, Specialist . . "Provider Documentation" section prepared by Florecita Bush. .
--- NOTE | 2017-09-06 11:55 | Discharge Summary ---
Discharge Summary Date of Service Sep 06, 2017. Discharge Summary Admission Date: Sep 05, 2017 at 18:34 Discharge Date: Sep 06, 2017 Discharge Disposition: Home Principal Diagnosis: Intractable back pain Problems/Secondary Diagnoses: Anxiety/depression/PTSD Froin syndrome Seizure hx Hyperlipidemia HTN Hx of multiple back surgeries Immunizations: Have You Had Influenza Vaccine: Unknown History of Tetanus Vaccine?: Unknown Tetanus Immunization Date: Jan 14, 2008 History of Pneumococcal: Unknown History of Hepatitis B Vaccine: Unknown Hepatitis Immunization Date: Jan 14, 2008 Medication Reconciliation New Medications: Diazepam (Valium) 2 Mg Tab 2 MG PO Q8 PRN for Muscle Spasms, #5 TAB Ketorolac Tromethamine (Toradol) 10 Mg Tab 10 MG PO Q6H PRN for Pain for 5 Days, #20 TAB Continued Medications: Acetamin/Butalbital/Caffeine (Fioricet) 1 Ea Tab 1-2 TABS PO BID PRN for Headache, TAB TAKE NO MORE THAN 3 DAYS PER WEEK Amlodipine Besylate (Amlodipine Besylate) 5 Mg Tab 5 MG PO DAILY Ondasetron Odt (Zofran Odt) 4 Mg Tab 4 MG SL TID PRN for Nausea, TAB ALLOW TABLET TO DISSOLVE ON TONGUE Pantoprazole (Pantoprazole Sodium) 40 Mg Tab 40 MG PO DAILY Pravastatin Sodium (Pravastatin Sodium) 10 Mg Tab 10 MG PO HS Prochlorperazine Maleate (Prochlorperazine Maleate) 10 Mg Tab 10 MG PO TID PRN for Nausea Sertraline HCl (Sertraline HCl) 100 Mg Tab 200 MG PO DAILY Sumatriptan Succinate (Imitrex) 100 Mg Tab 100 MG PO UD PRN for Migraine TAKE ONE TABLET AT ONSET OF MIGRAINE, MAY REPEAT DOSE AFTER 2 HOURS IF NEEDED. MAXIMUM OF 3 TABLETS/24 HOURS Tizanidine (Tizanidine HCl) 4 Mg Tab 4 MG PO BID Trazodone Hcl (Trazodone) 100 Mg Tab 150 MG PO HS, TAB Discharge Exam Pt is feeling much improved today. His pain is much less than yesterday. He feels it is at its baseline. No longer with LE numbness other than his usual L foot numbness. He is able to ambulate without issue. He feels his pain is improved because he is no longer having muscle spasms. Ate without issue. Pt denies fever, SOB, chest pain, abd pain, n/v/c/d, LE swelling. Ortho has not been in to see pt but he feels he is fine to go home without seeing them as his pain is back to his baseline. Physical Exam: General Appearance: WD/WN, no apparent distress Eyes: normal inspection, sclerae normal Respiratory/Chest: normal breath sounds, no respiratory distress Cardiovascular: regular rate, rhythm, no edema Abdomen / GI: non tender, soft Extremities: no calf tenderness, no pedal edema Neurologic/Psychiatric: alert, normal mood/affect, oriented x 3 Skin: normal color, warm/dry Hospital Course 47 y/o M who was admitted for observation on 09/05 for intractable low back pain Intractable low back pain: CT and MRI L-spine neg for new issues He has had recent injections for the L2/3, L3/4 small disc bulges, those are not new and no hardware issues noted CBC, PRP WNL Elevated CRP noted, afebrile CT AP noted only for splenomegaly Ideally would have tried IV steroids, however pt requests to not use this due to anxiety/PTSD worsening with steroids Follows with Dr. Chowdhury and Dr. Henderson and can f/u as needed Has seen Dr. Mejía in the past and a c/s was placed, however pt felt that he was back to his baseline chronic pain after muscle spasms were controlled and requested d/c prior to c/s. Advised to f/u with his other ortho providers if needed Pt was given a script for valium as this seemed to control his muscle spasms , however was advised that he did not need to fill this unless muscle spasms returned HTN: continue home meds Anxiety/depression/PTSD: continue home meds Status epilepticus: no current seizure medications Reports that neuro feels pt has issues with CSF transfer, Froin's syndrome Remote hx of seizures Total Time Spent: Greater than 30 minutes This includes examination of the patient, discharge planning, medication reconciliation, and communication with other providers. Discharge Instructions Please refer to the electronic Patient Visit Report (Discharge Instructions) for additional information. Follow-Up Dr. Chowdhury as scheduled prior to admission Orthopedics or pain management if further assessment is needed Additional Copies To Troy Chowdhury M.D.; Nigel Chowdary M.D.
[2017-09-06 12:11] VITALS: BP 111/68; PULSE 60; TEMP 36.3; O2SAT 96
--- NOTE | 2017-09-06 14:28 | Orthopedic Consultation ---
Orthopedic Consultation Date of Consultation: Sep 06, 2017. Attending Physician: Florecita Bush DO Reason for Consultation: Back pain History of Present Illness This is a 47-year-old male that states he had immediate onset of severe back pain with numbness and tingling extending down his legs. He is up simply bent over picking something up when this occurred. At this time during discussion majority of symptoms have resolved. He does have a history of undergoing several lumbar procedures and does have an fusion at the L4 551 level. Again during her discussion at this time majority symptom complex is improved and is quite functional. Past Medical/Surgical History Medical Problems: (1) Acidosis Status: Acute (2) Acute allergic reaction Status: Acute (3) Acute exacerbation of chronic low back pain Status: Acute (4) Back pain with sciatica Status: Acute (5) Dizziness Status: Acute (6) Fall Status: Acute (7) Headache Status: Acute (8) Intractable back pain Status: Acute (9) Migraine Status: Acute (10) Migraine Status: Acute (11) Migraine Status: Acute (12) Migraine Status: Acute (13) Nasal fracture Status: Acute (14) Nasal laceration Status: Acute (15) Precordial chest pain Status: Acute (16) Respiratory failure Status: Acute (17) Unresponsive Status: Acute Family History Cancer Diabetes mellitus Gallbladder disease Heart disease Hypertension Social History Smoking Status: Never Smoker Alcohol Use: occasionally (2-3 beers per month) Drug Use: none Marital Status: Housing Status: lives with family Occupation Status: disabled Allergies Coded Allergies: Hydromorphone (Verified Allergy, Severe, SHORTNESS OF BREATH, 09/05/17) 1.5 hr after dilaudid iv in ed, he developed facial swelling/EDEMA TO UNDERNEATH LEFT EYE, pharyngeal and tongue sob, and wheezing, Penicillins (Verified Allergy, Severe, ALLERGY TO [id number] , 09/05/17) Doxycycline (Verified Allergy, Intermediate, BLISTERS/HIVES, 09/05/17) Clindamycin (Verified Allergy, Unknown, Unknown, 09/05/17) Lamotrigine (Unverified Allergy, Unknown, tremors, 09/05/17) Eletriptan (Verified Adverse Reaction, Unknown, nausea/vomiting, 09/05/17) Home Medications Scheduled Amlodipine Besylate (Amlodipine Besylate), 5 MG PO DAILY Pantoprazole (Pantoprazole Sodium), 40 MG PO DAILY Pravastatin Sodium (Pravastatin Sodium), 10 MG PO HS Sertraline HCl (Sertraline HCl), 200 MG PO DAILY Tizanidine (Tizanidine HCl), 4 MG PO BID Trazodone Hcl (Trazodone), 150 MG PO HS Scheduled PRN Acetamin/Butalbital/Caffeine (Fioricet), 1-2 TABS PO BID PRN for Headache Diazepam (Valium), 2 MG PO Q8 PRN for Muscle Spasms Ketorolac Tromethamine (Toradol), 10 MG PO Q6H PRN for Pain Ondasetron Odt (Zofran Odt), 4 MG SL TID PRN for Nausea Prochlorperazine Maleate (Prochlorperazine Maleate), 10 MG PO TID PRN for Nausea Sumatriptan Succinate (Imitrex), 100 MG PO UD PRN for Migraine Physical Exam Date Time Temp Pulse Resp B/P (MAP) Pulse Ox O2 Delivery O2 Flow Rate FiO2 09/06/17 12:11 36.3 60 20 96 Room Air 09/06/17 09:28 96 Room Air 09/06/17 07:23 96 Room Air 09/06/17 07:15 Room Air 09/06/17 07:02 36.3 60 20 111/68 (82) 97 Nasal Cannula 2.0 09/06/17 00:00 96 Nasal Cannula 2.0 09/05/17 23:04 37.0 59 16 109/70 (83) 96 Nasal Cannula 4.0 09/05/17 20:15 36.6 66 18 126/82 96 Nasal Cannula 4.0 09/05/17 18:42 72 18 126/73 99 Nasal Cannula 3.0 09/05/17 17:23 72 18 108/68 96 Room Air 09/05/17 16:17 72 16 128/66 97 Nasal Cannula 3.0 09/05/17 15:24 75 18 133/73 97 Nasal Cannula 4.0 On exam he is able to sit up in bed and at the side of the bed without difficulty. He is good strength testing the lower extremities. He has no significant pain to palpation of paravertebral musculature. Laboratory Results Last 24 Hours Test 09/05/17 16:50 White Blood Count 7.05 K/uL Red Blood Count 4.96 M/uL Hemoglobin 15.0 g/dL Hematocrit 43.0 % Mean Corpuscular Volume 86.7 fL Mean Corpuscular Hemoglobin 30.2 pg Mean Corpuscular Hemoglobin Concent 34.9 g/dl Platelet Count 129 K/uL Mean Platelet Volume 8.8 fL Neutrophils (%) (Auto) 61.0 % Lymphocytes (%) (Auto) 27.7 % Monocytes (%) (Auto) 7.5 % Eosinophils (%) (Auto) 3.4 % Basophils (%) (Auto) 0.3 % Neutrophils # (Auto) 4.30 K/uL Lymphocytes # (Auto) 1.95 K/uL Monocytes # (Auto) 0.53 K/uL Eosinophils # (Auto) 0.24 K/uL Basophils # (Auto) 0.02 K/uL RDW Standard Deviation 43.8 fL RDW Coefficient of Variation 13.9 % Immature Granulocyte % (Auto) 0.1 % Immature Granulocyte # (Auto) 0.01 K/uL Sodium Level 138 mmol/L Potassium Level 4.0 mmol/L Chloride Level 107 mmol/L Carbon Dioxide Level 24 mmol/L Anion Gap 7.0 mmol/L Blood Urea Nitrogen 25 mg/dl Creatinine 1.16 mg/dl Est Creatinine Clear Calc Drug Dose 94.2 ml/min Estimated GFR () 86.4 Estimated GFR (Non- 74.6 BUN/Creatinine Ratio 21.4 Random Glucose 116 mg/dl Calcium Level 8.6 mg/dl C-Reactive Protein 0.56 mg/dl Assessment & Plan Assessment lumbar sprain strain. Plan discussed with this patient and reviewed his MRI and CAT scan findings. Does not appear to have any advanced adjacent level disease. The fusion appears to be intact and well-healed. At this time would have him continue with his interventional pain doctor and see him as needed.
== END 2017-09-06 13:56 | disposition home or self-care (01) ==
LOC: C.EDB 13:45 → C.MSW 18:34 → ENRESERV 18:56
PROVIDERS: ADMIT Family Medicine; ATTEND Family Medicine
DX: M54.5 Low back pain (principal); I10 Essential (primary) hypertension; E78.5 Hyperlipidemia, unspecified; F32.9 Major depressive disorder, single episode, unspecified; F43.10 Post-traumatic stress disorder, unspecified; Z98.1 Arthrodesis status; Z88.5 Allergy status to narcotic agent; Z88.0 Allergy status to penicillin; Z88.1 Allergy status to other antibiotic agents; Z82.49 Family history of ischemic heart disease and other diseases of the circulatory system; Z83.3 Family history of diabetes mellitus

== ENCOUNTER → 2017-10-13 | Day surgery (SDC) | payer BC, OTHER ==
[2017-10-11 07:33] VITALS: Ht 182.9 cm; Wt 93.2 kg
[~2017-10-13] VITALS: Ht 182.9 cm; Wt 93.2 kg
[~2017-10-13] MED LIST changes: -CMP/10 PO; +LIDOCAINE HCL 1% MPF 5 ML VIAL ONE; +PROC10TA5 PO; +SODIUM CHLORIDE 0.9% INJ 10 ML VIAL ONE
--- NOTE | 2017-10-13 13:23 | History & Physical Bridge - SC ---
H&P Re-Evaluation Bridge Note: I have examined the patient, reviewed the History & Physical and in the interval since the performance of the History & Physical I have noted the following changes of clinical significance: No changes noted
--- NOTE | 2017-10-13 13:53 | [facility] Post Operative Brief Note ---
Immediate Operative Summary Operative Date October 13, 2017. Pre-Operative Diagnosis 1. Post-laminectomy syndrome with right L5 radiculopathy, suspected right L5-S1 disc disease 2. Thoracic spasms Post-Operative Diagnosis Same Procedure(s) Performed Caudal Epidural Steroid Injection Surgeon Dr. Myriam Chowdhury Brewing Technician Surgeon(s) None Estimated Blood Loss 0 Findings Consistent with Post-Op Diagnosis Specimens NA Drains None Anesthesia Type Local Complication(s) none Disposition Disposition:
[2017-10-13 13:54] VITALS: TEMP 36.8
--- NOTE | 2017-10-13 13:54 | Discharge Instructions ---
Discharge Instructions Date of Service October 13, 2017. Visit Reason for Visit: Lumbar Radiculopathy Discharge Discharge Diagnosis / Problem: left leg pain Discharge Goals Goal(s): Decrease discomfort, Improve function Activity Recommendations Activity Limitations: resume your previous activity Anesthesia . Post Anesthesia Instructions: If you have had General Anesthesia or IV Sedation: * Do not drive today. * Resume driving when surgeon permits. * Do not make important decisions or sign legal documents today. * Call surgeon for: 1. Temperature elevations greater than 101 degrees F. 2. Uncontrollable pain. 3. Excessive bleeding. 4. Persistent nausea and vomiting. 5. Medication intolerance (nausea, vomiting or rash). * For nausea and vomiting use only clear liquids such as: tea, soda, bouillon until nausea subsides, then gradually increase diet as tolerated. * If you have any concerns or questions, call your surgeon's office. If physician is unavailable and it is an emergency, call 911 or go to the nearest emergency room. . Diet Recommendations Recommended Home Diet: resume previous diet Procedures Procedures Performed: Caudal Epidural Steroid Injection Pending Studies Studies pending at discharge: no Medical Emergencies . Who to Call and When: Medical Emergencies: If at any time you feel your situation is an emergency, please call 911 immediately. . Non-Emergent Contact Non-Emergency issues call your: Specialist . . "Provider Documentation" section prepared by Troy Chowdhury. .
[2017-10-13 14:20] VITALS: BP 118/77; PULSE 53; O2SAT 98
== END | disposition home or self-care (01) ==
LOC: X.SURG 12:35
PROVIDERS: ATTEND Physical Medicine & Rehabilitation
DX: M96.1 Postlaminectomy syndrome, not elsewhere classified (principal); M54.16 Radiculopathy, lumbar region

== ENCOUNTER 2019-01-20 05:57 | Inpatient (IN) ==
--- NOTE | 2019-01-16 12:55 | PAT Medication Instructions ---
Medication Instructions Date of Service January 16, 2019 Home Medications Medication Instructions Recorded sildenafil 50 mg tablet 50 mg PO DAILY PRN #20 tab 01/11/19 amlodipine 5 mg tablet 5 mg PO QAM wlebyfjivm-vqafwgdkkrcfc-yzdgfapz 50 mg-300 mg-40 mg capsule 1 cap PO Q4H PRN gemfibrozil 600 mg tablet 1,200 mg PO QAM pantoprazole 40 mg tablet,delayed release 40 mg PO QAM prochlorperazine maleate 10 mg tablet 10 mg PO DAILY PRN sertraline 100 mg tablet 200 mg PO QAM tizanidine 4 mg capsule 4 mg PO BID trazodone 100 mg tablet 150 mg PO HS montelukast 10 mg tablet 10 mg PO QPM sildenafil 50 mg tablet 50 mg PO DAILY PRN STOP taking 48 hours before surgery gemfibrozil 600 mg tablet 1,200 mg PO QAM DO NOT take the morning of surgery cqusujlvdo-fxjbxsmpwuzbf-iwuavusx 50 mg-300 mg-40 mg capsule 1 cap PO Q4H PRN tizanidine 4 mg capsule 4 mg PO BID sildenafil 50 mg tablet 50 mg PO DAILY PRN Take morning of surgery With a small sip of water, OTHERWISE NOTHING TO EAT OR DRINK AFTER MIDNIGHT: amlodipine 5 mg tablet 5 mg PO QAM pantoprazole 40 mg tablet,delayed release 40 mg PO QAM prochlorperazine maleate 10 mg tablet 10 mg PO DAILY PRN (if needed) sertraline 100 mg tablet 200 mg PO QAM Take evening before surgery conzlypinr-rjpstlqagpxfv-sajoycuk 50 mg-300 mg-40 mg capsule 1 cap PO Q4H PRN (if needed) prochlorperazine maleate 10 mg tablet 10 mg PO DAILY PRN (if needed) tizanidine 4 mg capsule 4 mg PO BID trazodone 100 mg tablet 150 mg PO HS montelukast 10 mg tablet 10 mg PO QPM sildenafil 50 mg tablet 50 mg PO DAILY PRN (if needed) Other Notes If you have any questions please call us at [phone] or [phone] or [phone] or [phone]
--- NOTE | 2019-01-16 14:45 | Anesthesiology Consultation ---
Date of Service January 16, 2019 Assessment & Plan (1) Encounter for pre-operative examination: Chart Review Chart Review: Acceptable Risk for Surgery and Patient seen in Pre Admission Testing Consults Requested none History Surgery Operation Date: 01/20/19 07:45 Proposed Procedures p C4-C7 Anterior Cervical Discectomy and Fusion, C5 Corpectomy with Spinal Cord Monitoring - Troy Mejía DO Height/Weight Height: 5 ft 11 in Weight: 99.79 kg Allergies Allergy/AdvReac Type Severity Reaction Status Date / Time hydromorphone Allergy Severe SHORTNESS Verified 01/12/19 09:00 OF BREATH Penicillins Allergy Severe ALLERGY TO Verified 01/12/19 09:00 [id number] doxycycline Allergy Intermediate BLISTERS/HI Verified 01/12/19 09:00 VES lamotrigine Allergy Unknown tremors Verified 01/12/19 09:00 clindamycin AdvReac Severe NAUSEA Verified 01/12/19 09:00 eletriptan AdvReac Unknown nausea/vomi Verified 01/12/19 09:00 ting Medications Home Medications Medication Instructions Recorded Confirmed Last Taken amlodipine 5 mg tablet 5 mg PO QAM 02/10/18 01/12/19 Unknown isufspswzj-iozevcuqxmhqj-lmdvdmnr 1 cap PO Q4H PRN 02/10/18 01/12/19 Unknown 50 mg-300 mg-40 mg capsule gemfibrozil 600 mg tablet 1,200 mg PO QAM tab 02/10/18 01/12/19 Unknown pantoprazole 40 mg tablet,delayed 40 mg PO QAM 02/10/18 01/12/19 Unknown release prochlorperazine maleate 10 mg 10 mg PO DAILY PRN 02/10/18 01/12/19 Unknown tablet sertraline 100 mg tablet 200 mg PO QAM tab 02/10/18 01/12/19 Unknown tizanidine 4 mg capsule 4 mg PO BID cap 02/10/18 01/12/19 Unknown trazodone 100 mg tablet 150 mg PO HS 02/10/18 01/12/19 Unknown montelukast 10 mg tablet 10 mg PO QPM 08/18/18 01/12/19 Unknown sildenafil 50 mg tablet 50 mg PO DAILY PRN #20 tab 01/11/19 01/11/19 Unknown Past Medical History Medical History Status epilepticus (Chronic 10/19/13) No problems since, 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 Hypoxia (Chronic) DENIES Acute exacerbation of chronic low back pain (Resolved) Acute thoracic back pain (Resolved) Altered mental status (Resolved) Back pain (Resolved) Overdose (Resolved) Renal insufficiency (Resolved) pt denies Degenerative disc disease GERD (gastroesophageal reflux disease) History of lumbar puncture Hyperlipidemia Hypertension Migraine Post traumatic stress disorder Sleep apnea ORAL DEVICE NIGHTLY Spinal stenosis Exercise / Class Metabolic Activity II 4-5 Yardwork/Stairs/Walk up hill Past Family History Family History Grandfather (Maternal) Diabetes Mother FHx: skin cancer Grandmother (Maternal) FHx: stomach cancer Other Gallbladder disease Heart disease Hypertension Past Surgical History Surgical History History of discectomy lumbar (total 3 surgeries) History of esophagogastroduodenoscopy (EGD) Social History Smoking Status: Never smoker Do You Dip or Chew Tobacco: No Hx Alcohol Use: Yes Alcohol type: beer alcohol intake frequency: a few times a month Hx Substance Use: No substance use type: does not use Physical Exam ENMT Mouth: + dental restorations Thyromental Distance: > or= 3.5 Finger Breadths Mallampati Class: II Neck normal visual inspection and + limited neck extension Respiratory normal respiratory effort Cardiovascular Rate/Rhythm: regular rate and regular rhythm Testing Laboratory Results Laboratory Tests 01/06/19 01/06/19 10:52 10:52 WBC 5.58 Hgb 16.1 Plt Count 178 Sodium 139 Potassium 4.3 Chloride 106 Carbon Dioxide 28 BUN 22 H Creatinine 1.27 Glucose 91 Chest X-Ray Date: 04/24/18 IMPRESSION: 1. Top normal cardiac size with possible volume overload though the appearance may be due to mildly low lung volumes. No other evidence of acute cardiopulmonary disease. Other Testing Cervical Spine MRI 11/17/18 IMPRESSION: 1. Multilevel cervical spondylosis as described above with multiple disc bulges and disc herniations resulting in central canal narrowing. The largest disc herniation at C3-C4 measures 5 x 5 x 9 mm and results in moderate anterior cord deformity. 2. Straightening of the cervical spine. No fractures. 3. The cervical spinal cord demonstrates a normal signal intensity. 4. Multilevel right greater than left neural foraminal narrowing.
[2019-01-20] MEDS ORDERED: LR 15ML/HR IV SCH (06:00)
[2019-01-20] MEDS ORDERED: ACETAMINOPHEN 500 MG TAB PO SCH (06:00)
[2019-01-20] MEDS ORDERED: CEFAZOLIN 2000MG 2,000 MG/15 ML SYR IV SCH (06:00)
[2019-01-20] MEDS ORDERED: GABAPENTIN 300 MG CAP PO SCH (06:00)
[2019-01-20] MEDS ORDERED: CeleBREX 200 MG CAP PO SCH (06:00)
[2019-01-20] MEDS ORDERED: BACITRACIN INJ 50,000 UNIT VIAL ONE (06:58)
[2019-01-20] MEDS ORDERED: ONDANSETRON INJ 2 MG/ML 2 ML VIAL ONE (07:15)
[2019-01-20] MEDS ORDERED: PROPOFOL IV EMULSION 10 MG/ML 20 ML VIAL IV ONE (07:15)
[2019-01-20] MEDS ORDERED: NEOSTIGMINE METHYLSULFATE 1 MG/ML 10ML VIAL ONE (07:15)
[2019-01-20] MEDS ORDERED: DEXAMETHASONE SOD INJ 4 MG/ML VIAL ONE (07:15)
[2019-01-20] MEDS ORDERED: PHENYLEPHRINE HCL 10 MG/ML VIAL ONE (07:15)
[2019-01-20] MEDS ORDERED: SUCCINYLCHOLINE CHLORIDE 20 MG/ML 10 ML VIAL ONE (07:15)
[2019-01-20] MEDS ORDERED: GLYCOPYRROLATE 0.2 MG/ML VIAL ONE ×2 (07:15→10:23)
[2019-01-20] MEDS ORDERED: ePHEDrine sulfate 50 MG/ML AMP ONE (07:15)
[2019-01-20] MEDS ORDERED: fentaNYL citrate 100 MCG/2 ML VIAL ONE ×3 (07:15→10:00)
[2019-01-20] MEDS ORDERED: LIDOCAINE HCL 2% 2 ML VIAL/AMP(20MG/ML) INFIL ONE (07:15)
[2019-01-20] MEDS ORDERED: MIDAZOLAM HCL 1 MG/ML 2ML VIAL ONE (07:15)
--- NOTE | 2019-01-20 07:22 | History & Physical Bridge Note ---
Date of Service January 20, 2019 History & Physical Bridge Note I have examined the patient, reviewed the History & Physical and in the interval since the performance of the History & Physical I have noted the following changes of clinical significance: no changes noted
--- NOTE | 2019-01-20 07:24 | History & Physical Report ---
Date of Service January 20, 2019 Assessment & Plan (1) Cervical spinal stenosis: Anterior cervical discectomy and fusion C6-7 with C5 corpectomy Present on Admission?: Yes History of Present Illness Chief Complaint: Neck and arm pain Primary Care Provider: Nigel Chowdary MD Resents with chronic persistent neck and arm pain. After failing extensive course of nonoperative care is here for surgical intervention. Allergies Allergy/AdvReac Type Severity Reaction Status Date / Time hydromorphone Allergy Severe SHORTNESS Verified 01/20/19 06:35 OF BREATH Penicillins Allergy Severe ALLERGY TO Verified 01/20/19 06:35 [id number] doxycycline Allergy Intermediate BLISTERS/HI Verified 01/20/19 06:35 VES lamotrigine Allergy Unknown tremors Verified 01/20/19 06:35 clindamycin AdvReac Severe NAUSEA Verified 01/20/19 06:35 eletriptan AdvReac Unknown nausea/vomi Verified 01/20/19 06:35 ting Home Medications Home Medications Medication Instructions Recorded Confirmed Type amlodipine 5 mg tablet 5 mg PO QAM 02/10/18 01/20/19 History zelvwvqwmu-tslbdjqufpweq-lnhwaabe 1 cap PO Q4H PRN 02/10/18 01/20/19 History 50 mg-300 mg-40 mg capsule gemfibrozil 600 mg tablet 1,200 mg PO QAM tab 02/10/18 01/20/19 History pantoprazole 40 mg tablet,delayed 40 mg PO QAM 02/10/18 01/20/19 History release prochlorperazine maleate 10 mg 10 mg PO DAILY PRN 02/10/18 01/20/19 History tablet sertraline 100 mg tablet 200 mg PO QAM tab 02/10/18 01/20/19 History tizanidine 4 mg capsule 4 mg PO BID cap 02/10/18 01/20/19 History trazodone 100 mg tablet 150 mg PO HS 02/10/18 01/20/19 History montelukast 10 mg tablet 10 mg PO QPM 08/18/18 01/20/19 History tadalafil [Cialis] 20 mg PO DAILY PRN 01/20/19 01/20/19 History Past Med/Surg History Medical History Status epilepticus (Chronic 10/19/13) No problems since, 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 Hypoxia (Chronic) DENIES Acute exacerbation of chronic low back pain (Resolved) Acute thoracic back pain (Resolved) Altered mental status (Resolved) Back pain (Resolved) Overdose (Resolved) Renal insufficiency (Resolved) pt denies Degenerative disc disease GERD (gastroesophageal reflux disease) History of lumbar puncture Hyperlipidemia Hypertension Migraine Post traumatic stress disorder Sleep apnea ORAL DEVICE NIGHTLY Spinal stenosis Surgical History History of discectomy lumbar (total 3 surgeries) History of esophagogastroduodenoscopy (EGD) Family History Grandfather (Maternal) Diabetes Mother FHx: skin cancer Grandmother (Maternal) FHx: stomach cancer Other Gallbladder disease Heart disease Hypertension Social History Preferred Language: [place] Communication Ability: Effective Visual Impairment: No Limitations Hearing Ability: Normal Grain Grader Required: No Beliefs That Will Affect Care: None marital status: Current Living Situation: Family current occupational status: employed 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 Results & Data Vital Signs (Past 12 Hours) Vital Signs Temp Pulse Resp BP Pulse Ox 01/20/19 06:41 37 C 70 16 131/81 96
[2019-01-20] MEDS ORDERED: ATROPINE SULFATE 0.1 MG/ML 10ML SYR IV PRN (07:31)
[2019-01-20] MEDS ORDERED: ePHEDrine sulfate 50 MG/ML AMP IV PRN (07:31)
[2019-01-20] MEDS ORDERED: fentaNYL citrate 100 MCG/2 ML VIAL IV PRN (07:32)
[2019-01-20] MEDS ORDERED: CLINDAMYCIN 600 MG/54 ML D5W IV ONE (07:32)
[2019-01-20] MEDS ORDERED: FLOSEAL HEMOSTATIC MATRIX 10ML TOP ONE (09:53)
--- NOTE | 2019-01-20 10:13 | Operative Report ---
Post Operative Report Pre & Post Diagnosis Operation Date: 01/20/19 07:45 Pre-Op Diagnosis: Cervical spinal stenosis with myeloradiculopathy Post-Op Diagnosis: Same Procedure Operation Date: 01/20/19 07:45 Actual Procedures #1 anterior cervical corpectomy of C5 with bilateral foraminotomies. #2 anterior cervical discectomy C6-7 with bilateral foraminotomies. #3 anterior ce rvical arthrodesis C4-C6 and C6-C7. #4 placement of Spira titanium cage 27 mm in height from C4-C6 and 9 mm in height from C6-7. #5 placement of locally harvested morselized autograft combined with DBM and interbody cages. #6 application of el plate and screws from C4-C7. Surgeon Troy Mejía, DO Tank Car Cleaner None Estimated Blood Loss 50 Findings See Below The patient is 5 foot 11 inches tall weighing over 101 kg with a BMI in excess of 31. The patient's body habitus did add considerable technical difficulty with exposure and performing the decompression. This added at least 25% increase in operative time. Specimens None Indications This is a 40-year-old male that presents with above-mentioned diagnosis after failing extensive course of nonoperative care like to undergo the above- mentioned procedure. Description of Procedure Patient was met with identified and informed consent obtained. Patient was then taken to the operative suite underwent intubation placed in a supine position on the Ernst table with head Mejia inspector and adjuster golf club head. All bony prominences well- padded eyes inspected to ensure no external pressure placed upon the peer at this point the anterior cervical spine was prepped and draped in normal sterile fashion. The assistance of fluoroscopy identified the C5-6 disc space and a transverse incision was placed along the right anterior aspect of the cervical spine overlying this region. Sharp dissection with the assistance of bipolar electrocautery was performed down to and exposing the anterior cervical spine from C4-C7. Self-retaining retractor was placed. And then performed a complete discectomy of C4-5 out to the uncovertebral joints bilaterally followed by C5-6. [place] distracting pins were then placed in C4 and C6 to distract across the C5 vertebral body. And then performed a complete corpectomy of C5 removing all posterior annular fibers longitudinal ligament bilateral foraminotomies. Endplates were then burred to subcortical bleeding bone and a 27 mm spiral titanium cage filled with local autograft and DBM tapped in position. Distracti on apparatus was removed and I proceeded to C6-7. Again complete discectomy was performed out to the uncovertebral joints bilaterally. [place] distracting pins again utilized. Removed all posterior annular fibers longitudinal ligament bilateral foraminotomies performed. A 9 mm spiral cage filled with locally harvested morselized autograft and DBM is intact in position. Distraction apparatus was removed. All anterior ossified's burred with smooth cortical surface. El plate and screws were then applied with the assistance of fluoroscopy. The incision was then copiously irrigated explored to ensure no damage to surrounding structures remaining bleeding. 10 round SALLY drain inserted. The incision was then closed with 2 Vicryl in the fascia and 4-0 Monocryl for final skin closure. Steri-Strip sterile dressings placed. Patient will continue to PACU stable condition. Please note spinal cord monitoring was utilized that the procedure no changes noted. I attest to the content of the Intraoperative Record and any orders documented therein. Any exceptions are noted below.
[2019-01-20] MEDS ORDERED: ROCURONIUM BROMIDE 10 MG/ML 5 ML VIAL ONE (10:23)
[2019-01-20] MEDS ORDERED: MoRPHine SULFATE 10 MG/ML CARP/VIAL ONE (10:25)
--- NOTE | 2019-01-20 10:25 | Fluoroscopy Report ---
Cervical SPINE, INTRAOPERATIVE FLUOROSCOPY HISTORY: C4 C7 ACDF. FLUOROSCOPY TIME: 13 seconds. FINDINGS: Intraoperative fluoroscopy was provided for the cervical spine. 3 fluoroscopic spot images were obtained. Anterior cervical discectomy and fusion from C4 through C7 with a C5 corpectomy and me tallic cage. The hardware appears intact. There are surgical sponges noted anterior to the cervical s pine. IMPRESSION: Fluoroscopy provided for a C4-C7 ACDF. Electronically signed by: Emir Belle M.D. 01/20/2019 10:24 AM
[2019-01-20] MEDS ORDERED: MoRPHine SULFATE 10 MG/ML CARP/VIAL IV STA (10:26)
[2019-01-20] MEDS ORDERED: MoRPHine SULFATE 4 MG/ML 1 ML CARP\\VIAL IV STA (11:03)
--- NOTE | 2019-01-20 11:49 | Anesthesiology Progress Note ---
Date of Service January 20, 2019 Anesthesia Post Procedure Vital Signs Vital Signs: Temp Pulse Pulse Pulse Resp BP BP 01/20/19 11:40 36.7 C 90 16 145/84 H 01/20/19 11:28 37.5 C 01/20/19 11:26 80 14 01/20/19 11:25 83 14 143/83 H 01/20/19 11:21 74 16 01/20/19 11:20 75 15 142/88 H 01/20/19 11:16 72 15 01/20/19 11:15 88 16 137/83 01/20/19 11:11 75 17 01/20/19 11:10 82 16 149/79 H 01/20/19 11:06 72 20 01/20/19 11:05 74 14 139/85 01/20/19 11:01 69 17 01/20/19 11:00 76 16 141/77 H 01/20/19 10:56 71 12 01/20/19 10:55 66 14 143/83 H 01/20/19 10:51 80 14 01/20/19 10:50 67 14 137/77 01/20/19 10:45 70 20 160/84 H 01/20/19 10:41 79 17 01/20/19 10:40 69 16 144/85 H 01/20/19 10:36 88 15 01/20/19 10:35 81 31 H 144/90 H 01/20/19 10:31 80 13 01/20/19 10:30 86 16 148/94 H 01/20/19 10:26 72 14 01/20/19 10:25 72 13 138/81 01/20/19 10:20 78 19 131/83 01/20/19 10:19 76 24 01/20/19 10:18 36.0 C L 74 70 21 144/79 H 144/79 H 01/20/19 06:41 37 C 70 16 BP Pulse Ox 01/20/19 11:40 98 01/20/19 11:28 99 01/20/19 11:26 99 01/20/19 11:25 98 01/20/19 11:21 99 01/20/19 11:20 99 01/20/19 11:16 100 01/20/19 11:15 99 01/20/19 11:11 99 01/20/19 11:10 99 01/20/19 11:06 01/20/19 11:05 01/20/19 11:01 01/20/19 11:00 01/20/19 10:56 01/20/19 10:55 01/20/19 10:51 01/20/19 10:50 01/20/19 10:45 01/20/19 10:41 01/20/19 10:40 01/20/19 10:36 01/20/19 10:35 01/20/19 10:31 01/20/19 10:30 01/20/19 10:26 01/20/19 10:25 01/20/19 10:20 01/20/19 10:19 01/20/19 10:18 01/20/19 06:41 131/81 96 Pain Intensity Neck: Pain Intensity: 4 Transfer of Care Handoff Completed per policy Notes Mental Status: alert / awake / arousable Patient Amnestic to Procedure: Yes Nausea / Vomiting: adequately controlled Pain: adequately controlled Airway Patency, RR, SpO2: stable & adequate BP & HR: stable & adequate Hydration State: stable & adequate Anesthetic Complications: no major complications apparent and Pt Satisfied with anesthetic care
[2019-01-20] MEDS ORDERED: ACETAMINOPHEN 1,000 MG/100 ML VIAL IV PRN (12:05)
[2019-01-20] MEDS ORDERED: BUTALBITAL/ACETAMIN/CAFFEINE TAB PO PRN (12:05)
[2019-01-20] MEDS ORDERED: DO NOT ADMINISTER PNEUMOCOCCAL VACCINE PRN (12:05)
[2019-01-20] MEDS ORDERED: LORazepam 0.5 MG/1 ML VIAL IV PRN (12:05)
[2019-01-20] MEDS ORDERED: DiphenhydrAMINE HCL 50 MG/ML VIAL IV PRN (12:05)
[2019-01-20] MEDS ORDERED: DO NOT ADMINISTER FLU VACCINE PRN (12:05)
[2019-01-20] MEDS ORDERED: LORazepam 0.5 MG TAB PO PRN (12:05)
[2019-01-20] MEDS ORDERED: ONDANSETRON INJ 2 MG/ML 2 ML VIAL IV PRN (12:05)
[2019-01-20] MEDS ORDERED: MAGNESIUM HYDROXIDE SUSP 30 ML UDC PO PRN (12:05)
[2019-01-20] MEDS ORDERED: NALOXONE HCL 0.4 MG/1 ML VIAL/CARP IV PRN (12:05)
[2019-01-20] MEDS ORDERED: DEXAMETHASONE SOD PHOSPHATE 8 MG in SYRINGE 0 ML IV PRN (12:05)
[2019-01-20] MEDS ORDERED: RACEPINEPHRINE 2.25% NEBU SOLN 0.5 ML VIAL INH PRN (12:05)
[2019-01-20] MEDS ORDERED: PROCHLORPERAZINE MALEATE 10 MG TAB PO PRN (12:05)
[2019-01-20] MEDS ORDERED: SCOPOLAMINE 1.5 MG TDSY TD SCH (13:00)
[2019-01-20] MEDS: LACTATED RINGER'S 1,000 ML IV SCH (13:47)
[2019-01-20] MEDS: OXYCODONE HCL IR 5 MG TAB (IMMEDIATE RELEASE) PO PRN ×3 (14:24→23:02)
[2019-01-20] MEDS: CHECK SCOPOLAMINE PATCH PLACEMENT SCH ×2 (14:24→23:01)
--- NOTE | 2019-01-20 16:20 | Anesthesiology Progress Note ---
Date of Service January 20, 2019 Anesthesia Post Procedure Vital Signs Vital Signs: Temp Pulse Pulse Pulse Resp BP BP 01/20/19 15:31 79 20 01/20/19 14:40 80 16 131/78 01/20/19 13:40 87 16 134/83 01/20/19 12:40 36.7 C 85 16 129/83 01/20/19 12:21 92 H 20 01/20/19 12:10 36.7 C 87 16 128/77 01/20/19 11:40 36.7 C 90 16 145/84 H 01/20/19 11:28 37.5 C 01/20/19 11:26 80 14 01/20/19 11:25 83 14 143/83 H 01/20/19 11:21 74 16 01/20/19 11:20 75 15 142/88 H 01/20/19 11:16 72 15 01/20/19 11:15 88 16 137/83 01/20/19 11:11 75 17 01/20/19 11:10 82 16 149/79 H 01/20/19 11:06 72 20 01/20/19 11:05 74 14 139/85 01/20/19 11:01 69 17 01/20/19 11:00 76 16 141/77 H 01/20/19 10:56 71 12 01/20/19 10:55 66 14 143/83 H 01/20/19 10:51 80 14 01/20/19 10:50 67 14 137/77 01/20/19 10:45 70 20 160/84 H 01/20/19 10:41 79 17 01/20/19 10:40 69 16 144/85 H 01/20/19 10:36 88 15 01/20/19 10:35 81 31 H 144/90 H 01/20/19 10:31 80 13 01/20/19 10:30 86 16 148/94 H 01/20/19 10:26 72 14 01/20/19 10:25 72 13 138/81 01/20/19 10:20 78 19 131/83 01/20/19 10:19 76 24 01/20/19 10:18 36.0 C L 74 70 21 144/79 H 144/79 H 01/20/19 06:41 37 C 70 16 BP Pulse Ox 01/20/19 15:31 96 01/20/19 14:40 96 01/20/19 13:40 98 01/20/19 12:40 98 01/20/19 12:21 99 01/20/19 12:10 97 01/20/19 11:40 98 01/20/19 11:28 99 01/20/19 11:26 99 01/20/19 11:25 98 01/20/19 11:21 99 01/20/19 11:20 99 01/20/19 11:16 100 01/20/19 11:15 99 01/20/19 11:11 99 01/20/19 11:10 99 01/20/19 11:06 100 01/20/19 11:05 100 01/20/19 11:01 100 01/20/19 11:00 100 01/20/19 10:56 100 01/20/19 10:55 100 01/20/19 10:51 100 01/20/19 10:50 100 01/20/19 10:45 100 01/20/19 10:41 100 01/20/19 10:40 100 01/20/19 10:36 100 01/20/19 10:35 100 01/20/19 10:31 100 01/20/19 10:30 100 01/20/19 10:26 100 01/20/19 10:25 100 01/20/19 10:20 100 01/20/19 10:19 100 01/20/19 10:18 100 01/20/19 06:41 131/81 96 Pain Intensity Neck: Pain Intensity: 4 Transfer of Care Handoff Completed per policy Notes Mental Status: alert / awake / arousable Patient Amnestic to Procedure: Yes Nausea / Vomiting: adequately controlled Pain: adequately controlled Airway Patency, RR, SpO2: stable & adequate BP & HR: stable & adequate Hydration State: stable & adequate Anesthetic Complications: no major complications apparent and Pt Satisfied with anesthetic care
[2019-01-20] MEDS: CLINDAMYCIN 600 MG in DEXTROSE 5% 50 ML IV SCH ×2 (16:33→23:01)
[2019-01-20] MEDS: DEXAMETHASONE SOD PHOSPHATE 6 MG in SYRINGE 0 ML IV SCH ×2 (16:34→23:01)
[2019-01-20] MEDS ORDERED: TRAZODONE HCL 50 MG TAB PO SCH (21:00)
[2019-01-20] MEDS: DOCUSATE SODIUM 100 MG CAP PO SCH (21:27)
[2019-01-20] MEDS: TIZANIDINE HCL 4 MG TABLET PO SCH (21:27)
[2019-01-21] MEDS: LACTATED RINGER'S 1,000 ML IV SCH (01:04)
[2019-01-21] MEDS: OXYCODONE HCL IR 5 MG TAB (IMMEDIATE RELEASE) PO PRN ×2 (03:04→08:29)
[2019-01-21] MEDS ORDERED: CLINDAMYCIN 600 MG/54 ML BAG IV SCH (06:00)
[2019-01-21] MEDS: DOCUSATE SODIUM 100 MG CAP PO SCH (08:28)
[2019-01-21] MEDS: TIZANIDINE HCL 4 MG TABLET PO SCH (08:28)
[2019-01-21] MEDS: DEXAMETHASONE SOD PHOSPHATE 6 MG in SYRINGE 0 ML IV SCH (08:29)
[2019-01-21] MEDS: CHECK SCOPOLAMINE PATCH PLACEMENT SCH (08:31)
[2019-01-21] MEDS: CLINDAMYCIN 600 MG in DEXTROSE 5% 50 ML IV SCH (08:33)
[2019-01-21] MEDS ORDERED: GEMFIBROZIL 600 MG TAB PO SCH (09:00)
[2019-01-21] MEDS ORDERED: PANTOprazole 40 MG TAB PO SCH (09:00)
[2019-01-21] MEDS ORDERED: AMLODIPINE BESYLATE 5 MG TAB PO SCH (09:00)
[2019-01-21] MEDS ORDERED: SERTRALINE HCL 100 MG TABLET PO SCH (09:00)
--- NOTE | 2019-01-21 10:16 | Discharge Summary ---
Date of Service January 21, 2019 Admission HPI Per Admitting Provider Resents with chronic persistent neck and arm pain. After failing extensive course of nonoperative care is here for surgical intervention. Principal Diagnosis Cervical spinal stenosis with myeloradiculopathy Discharge Data Allergies Allergy/AdvReac Type Severity Reaction Status Date / Time hydromorphone Allergy Severe SHORTNESS Verified 01/20/19 06:35 OF BREATH Penicillins Allergy Severe ALLERGY TO Verified 01/20/19 06:35 [id number] doxycycline Allergy Intermediate BLISTERS/HI Verified 01/20/19 06:35 VES lamotrigine Allergy Unknown tremors Verified 01/20/19 06:35 clindamycin AdvReac Severe NAUSEA Verified 01/20/19 06:35 eletriptan AdvReac Unknown nausea/vomi Verified 01/20/19 06:35 ting Procedures Performed Operation Date: 01/20/19 07:45 Actual Procedures p C4-C7 Anterior Cervical Discectomy and Fusion, C5 Corpectomy with Spinal Cord Monitoring(Not Applicable) - Troy Mejía DO Ordered Studies 01/20/19 07:45 FL cervical 2-3V Routine FL fluoroscopy <1hr Routine Hospital Course (1) Cervical spinal stenosis: Patient underwent anterior cervical discectomy and fusion tolerated as well as taken to orthopedic for postoperative. Postop day 1 he was swallowing well no hoarseness. Arm symptoms markedly improved. SALLY drain decreased probably. Subsequent discharge home. Discharge orders and instructions from the chart for further review. Total Time Total Time Spent Total Time Spent (In Minutes): 20 minutes Discharge Plan Discharge Items Patient Disposition: Home - Self-Care Reason For Visit: Spinal Stenosis, Cervical Region Discharge Diagnosis: Cervical spinal stenosis with radiculopathy Discharge Goals: Decrease discomfort Activity: Per 'Additional Instructions' section Non-emergency contact: Primary Care Provider Call non-emergency contact if: you have any medication questions Follow-up/Referrals: Nigel Chowdary MD [Primary Care Provider] - Diet: Regular Addtl Provider Instructions: ACTIVITY RECOMMENDATIONS: SELF CARE INSTRUCTIONS AFTER CERVICAL FUSIONS 1. No smoking. Smoking drastically decreases the chance of a solid fusion. 2. No bending, lifting more than 5 pounds, or twisting (roll like a log when turning in bed). 3. You may shower 3 days after surgery. Thoroughly dry wound. Do not soak in the tub. 4. Cervical collar: Must be worn at all times including sleeping. You may remove the brace only to bath, eat and if you are sitting in a recliner. 5. Please walk as much as you can for exercise. Gradually increase the distance that you walk as your endurance increases. SPECIAL CARE INSTRUCTIONS: VERY IMPORTANT TO READ AND REVIEW A. Do not take any anti-inflammatory medications (i.e. Indocin, Advil, Aspirin, Naprosyn, Aleve, Motrin, etc.) as these may inhibit the chance of a solid fusion. Tylenol is okay to take. B. Your surgical incision has been closed with a cosmetic suture under the skin that will dissolve in about 6 weeks. In 14 days, you can use a pair of clean scissors and cut the suture that is left outside of the skin at the ends of your incision. C. Complications are uncommon, but please contact us if you have any signs or symptoms of: 1. wound infection (fever higher than 102.5 degrees F, redness, separation of wound, drainage, or increasing pain from the incision) 2. blood clots in legs (pain, swelling, redness and warmth in legs) 3. urinary tract infection (fever higher than 102.5 degrees, burning upon urination or increased frequency of urination) 4. nerve problems (inability to walk on your toes or heels, numbness, loss of bowel or bladder control) 5. any other symptoms that concern you. D. Please call the office at if you have any concerns or questions about your operation or recovery. MANAGING PAIN AFTER SPINAL SURGERY 1. Narcotic medication is intended for short-term use and will be provided for surgical pain. Surgical pain usually lasts for a period of 4-6 weeks. Narcotic medication includes Percocet, Vicodin, Darvocet, Tylenol #3 or Lortab. 2. Longer-term pain is more appropriately treated with non-narcotic medication such as Tylenol ES. 3. Muscle spasm is not appropriately treated with narcotics. Muscle relaxers such as Soma, Flexeril or Skelaxin can be used along with Tylenol ES. 4. Remember that we all live with some "aches and pains". This is not unusual or uncommon after an injury or as we get older. 5. We will provide appropriate medication within the normal guidelines of their prescribed use. We will also be very cautious and aware of potential abuse and extended duration of patients' medication needs. 6. Please allow 2-3 days to process refills. Prescriptions will not be mailed but must be picked up at the office. FOLLOW UP VISIT: Keep your scheduled follow-up appointment. Any questions, please call the office at . Prescriptions: New oxycodone 5 mg Tablet 5 mg PO Q4H PRN (Reason: Pain) Qty: 20 RF: 0 Continued [id number] [Fioricet] 50-300-40 mg capsule 1 cap PO Q4H PRN (Reason: Pain) RF: 0 amlodipine 5 mg tablet 5 mg PO QAM RF: 0 gemfibrozil 600 mg tablet 1,200 mg PO QAM RF: 0 pantoprazole 40 mg tablet,delayed release (DR/EC) 40 mg PO QAM RF: 0 prochlorperazine maleate 10 mg tablet 10 mg PO DAILY PRN (Reason: Nausea) RF: 0 sertraline [Zoloft] 100 mg tablet 200 mg PO QAM RF: 0 tizanidine 4 mg capsule 4 mg PO BID RF: 0 trazodone 100 mg tablet 150 mg PO HS RF: 0 montelukast [Singulair] 10 mg tablet 10 mg PO QPM Qty: 90 RF: 3 tadalafil [Cialis] 20 mg Tablet 20 mg PO DAILY PRN (Reason: Erectile Dysfunction) RF: 0 Stand-Alone Forms: [facility] Discharge Orders: Discharge Order (Routine); Ordered 01/21/19 Ordered By: Troy Mejía Admission Data Admit Date/Time: 01/20/19 10:16 Attending Provider: Troy Mejía Admit Provider: Troy Mejía Primary Care Provider: Nigel Chowdary Service: Surgical Services
== END 2019-01-21 11:33 | disposition home or self-care (01) | DRG 472 ==
LOC: ASU 05:57 → 3E 10:16

== ENCOUNTER 2022-08-31 11:05 | Inpatient (IN) ==
[2022-08-31] MEDS ORDERED: ASPIRIN CHEW 324 MG PO STA (11:22)
[2022-08-31] MEDS ORDERED: NITROGLYCERIN SL 0.4 MG/TAB TAB SL PRN (11:22)
--- NOTE | 2022-08-31 11:22 | ED Triage Note ---
Date of Service August 31, 2022 History of Present Illness This patient was briefly evaluated while in triage. An abbreviated physical exam was performed. This patient is a 52-year-old Male who presents to the ED for evaluation of "I think I'm having an [place]". Pt. reports crushing chest pain radiating down left arm. States "I've been sick for a couple weeks now. This morning, I wasn't feeling real well and then developed this pain." Onset of pain approximately 1 hour ago. No history of [place]. Does have history of HTN, HLD, 6 spine surgeries. Physical Exam VITALS: Vitals are noted on the nurse's note and reviewed by myself. GENERAL: This is a 52 year old male, in no acute distress, nondiaphoretic, well- developed well-nourished. SKIN: No obvious rashes, edema, erythema HEAD: Normocephalic atraumatic. EYES: Conjunctivae without injection, sclerae without icterus. NECK: No JVD. LUNGS: No retractions or accessory muscle use. MUSCULOSKELETAL: Normal gait. NEURO: Patient was alert and oriented to person place and time. No focal neurological deficits. Initial orders for labs and / or imaging were placed and patient was placed in the waiting area until a bed is available. Please see further documentation for the full ED course.
[2022-08-31] MEDS ORDERED: MoRPHine SULFATE 4 MG/ML 1 ML CARP\\VIAL IV STA ×2 (11:34→12:27)
--- NOTE | 2022-08-31 11:52 | XRay Report ---
XR chest 1V portable HISTORY: Chest pain, nonspecific COMPARISON: Chest 08/25/2022. FINDINGS: No pneumothorax. No pleural effusions. There are low lung volumes. The heart remains top no rmal in size. Stable interstitial prominence. No new focal lung consolidations to suggest pneumonia. No evidence for pulmonary edema. Cervical spinal fusion hardware is partially visualized. IMPRESSION: No significant change compared to the prior study. No acute process. ACT 112: Negative or not required by law. Electronically signed by: Emir Belle M.D. 08/31/2022 11:51 AM
[2022-08-31 11:53] LABS: Basophils # (auto) 0.04 K/uL (0-0.2); Basophils % (auto) 0.4 %; Eosinophils # (auto) 0.23 K/uL (0-0.50); Eosinophils % (auto) 2.1 %; Hematocrit (blood only) 47.4 % (42.0-52.0); Hemoglobin 16.4 g/dl (14.0-18.0); Immature Granulocytes # (auto) 0.06 K/uL (0.01-0.20); Immature Granulocytes % (auto) 0.6 %; Lymphocytes # (auto) 1.35 K/uL (1.2-3.4); Lymphocytes % (auto) 12.6 %; Mean Corpuscular Hemoglobin 30.7 pg (25.0-34.0); Mean Corpuscular Hgb Conc 34.6 g/dL (32.0-36.0); Mean Corpuscular Volume 88.6 fL (80.0-100.0); Mean Platelet Volume 8.7 fL (9.4-12.4); Monocytes # (auto) 0.71 K/uL (0.11-0.59); Monocytes % (auto) 6.6 %; Neutrophils # (auto) 8.35 K/uL (1.40-6.50); Neutrophils % (auto) 77.7 %; Platelet Count 199 K/uL (130-400); RDW Coefficient of Variation 14.2 % (11.5-14.5); Red Blood Count 5.35 M/uL (4.70-6.10); White Blood Count 10.74 K/ul (4.8-10.8)
[2022-08-31] MEDS ORDERED: SODIUM CHLORIDE 0.9% 1000ML 1,000 ML IV ONE (11:58)
[2022-08-31] MEDS ORDERED: ONDANSETRON INJ 2 MG/ML 2 ML VIAL IV STA (11:58)
--- NOTE | 2022-08-31 12:07 | Emergency Department Note ---
Impression & Plan Atypical chest pain, Hypoxia, Nausea ED Provider Note Provider: Elliott Garcia MD DATE OF SERVICE: 08/31/2022 CHIEF COMPLAINT: Chest pain, nausea, shortness of breath HISTORY OF PRESENT ILLNESS: Patient is a 52-year-old gentleman history of recent bronchitis on Ceftin, hypertension, and allergies presenting here today reporting approximate hour prior to arrival developing central chest discomfort with radiation to left arm and left jaw. Some pain to the left upper quadrant with nausea in the abdomen reported. Feels short of breath. Has been on several antibiotics by his report related to bronchitis over the last several weeks and seen his PCP. Denies any exertion this morning. States distantly several years ago had chest pain like this that resolved but this has been continuous. Denies a cardiac history. Was in [place] in June but denies other recent travel or sick contacts. PAST MEDICAL HISTORY: As noted above MEDICATIONS: Reviewed home medications SOCIAL HISTORY: , non-smoker PHYSICAL EXAM: GENERAL: alert and oriented in no acute distress on stretcher, appears slightly anxious Head: normocephalic and atraumatic EYES: No injection, discharge or icterus. NECK: Trachea midline. Supple. ENT: Mucous membranes pink and moist. LUNGS: Airway patent. No retractions. Breath sounds clear with good air entry bilaterally, mildly tachypnea HEART: Regular rate and rhythm. No chest wall tenderness ABDOMEN: Soft with some mild left upper quadrant tenderness no guarding or other diffuse tenderness on exam or significant swelling. SKIN: Acyanotic, warm, without rash. Slightly diaphoretic. EXTREMITIES: Without swelling, tenderness or deformity NEUROLOGICAL: No focal deficits moving all extremities to command. No aphasia. No facial droop or slurred speech. EK bpm normal sinus rhythm. No PVC or PAC. No acute ST segment elevation or depression with a QTc of 446. CONTINUOUS CARDIAC MONITORING: was ordered and showed a heart rate of 60s-80s bpm in normal sinus rhythm Patient's laboratory studies and imaging reviewed. Differential includes Cardiac ischemia, aortic dissection, pulmonary embolism, pneumothorax, pneumonia, pericarditis, myocarditis, esophageal rupture, GERD, cholecystitis, pancreatitis, musculoskeletal, as well as other pathologies. IMPRESSION/MEDICAL DECISION MAKING: Brought back and given full dose aspirin. Nitroglycerin administered. Given some Zofran, IV fluids, and morphine for pain. EKG without STEMI noted. Laboratory studies sent. Has been ill with bronchitis he reports for several weeks on antibiotic. Noted to be hypoxic here. Denies severe back pain. Does have a little tenderness left upper quadrant which would be atypical for cardiac or pulmonary pain. Chest x-ray without an obvious pneumonia, pneumothorax, or pulmonary edema. Blood work with normal white blood cell count of 10.7 without anemia. No significant electrolyte abnormalities signs of renal dysfunction. No evidence of hepatitis or pancreatitis based on labs. COVID sent. Will send for CT of the chest to exclude PE. Reassessment still with pain and no change with nitroglycerin. Given some additional morphine. Initial troponin returns normal. CT of the chest per radiology without evidence of pulmonary embolism. Some mild bronchitis changes with some upper lobe nodular thickening's questions atypical pneumonitis. Patient again with an oxygen requirement. Still with significant chest pain although is with some improvement with the morphine. Given this discussed further care at the hospital with the patient and the hospitalist. Denies significant exposure to recent volatile inhalants. Patient states he was recently on steroids and that made things worse and that it the Qvar inhaler got did not help either thus will defer empiric neb or steroids. COVID-negative. DIAGNOSIS: Atypical chest pain, shortness of breath/hypoxia DISPOSITION: Hospitalist will evaluate Patient was agreeable with this plan. Past Med/Surg History Medical History Anxiety and depression Degenerative disc disease Failed back surgical syndrome Froin's syndrome History of suicide attempt Hyperlipidemia Hypertension Left lateral epicondylitis Migraine Post traumatic stress disorder Sleep apnea Spinal stenosis Status epilepticus (10/19/13) Surgical History Cyst Family history of reaction to anesthesia History of colonoscopy (~09/2021) History of esophagogastroduodenoscopy (EGD) History of lumbar fusion S/P cervical spinal fusion S/P lumbar and lumbosacral fusion by anterior technique [place] teeth removed Family History Grandfather (Maternal) Diabetes Mother FHx: skin cancer Sinus disorder Grandmother (Maternal) FHx: stomach cancer Brother Asthma Sinus disorder Father Cardiac disorder Lumbar disc disease Aunt Diabetes Uncle Diabetes Grandmother Cancer Other Gallbladder disease Heart disease Hypertension Social History Smoking Status: Never smoker Second Hand Exposure: No; Hx Alcohol Use: Yes Alcohol type: beer Hx Substance Use: No Preferred Language: [place] Communication Ability: Effective Visual Impairment: No Limitations Hearing Ability: Normal Accounts 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 Executive Required: No Beliefs That Will Affect Care: None marital status: Current Living Situation: Family current occupational status: employed 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 Feels Safe at Home: Yes Assistive Devices: Glasses Allergies Allergies Allergy/AdvReac Type Severity Reaction Status Date / Time hydromorphone Allergy Severe SHORTNESS Verified 08/31/22 14:59 OF BREATH Penicillins Allergy Severe ALLERGY TO Verified 08/31/22 14:59 [id number] doxycycline Allergy Intermediate BLISTERS/HI Verified 08/31/22 14:59 VES lamotrigine Allergy Intermediate tremors Verified 08/31/22 14:59 clindamycin AdvReac Intermediate NAUSEA Verified 08/31/22 15:17 eletriptan AdvReac Mild nausea/vomi Verified 08/31/22 14:59 ting Home Meds Home Medications Medication Instructions Recorded Confirmed sertraline 100 mg tablet (Zoloft) 200 mg PO QAM 02/10/18 08/31/22 trazodone 150 mg tablet 150 mg PO HS 09/03/21 08/31/22 amlodipine 5 mg tablet 5 mg PO DAILY 08/31/22 08/31/22 gemfibrozil 600 mg tablet 600 mg PO BID 08/31/22 08/31/22 Previous Rx's Medication Instructions Recorded fremanezumab-vfrm 225 mg/1.5 mL 225 mg (1.5 mL) subcut MONTHLY 30 10/14/21 subcutaneous syringe (ov days #1.5 mL Syringe) montelukast 10 mg tablet 10 mg PO QPM #90 tabs 01/19/22 (Singulair) pantoprazole 40 mg tablet,delayed 40 mg PO QAM #90 tabs 01/26/22 release tadalafil 5 mg tablet 20 mg PO ONCE PRN sexual activity 03/05/22 #30 tabs beclomethasone dipropionate 40 1 inh inhalation BID #10.6 grams 08/14/22 mcg/actuation HFA breath activated aerosol (Qvar RediHaler) cefuroxime axetil 500 mg tablet 500 mg PO BID #20 tabs 08/25/22 Results & Data (ED) Vital Signs Vital Signs - 24 hr 08/31/22 11:21 08/31/22 11:28 08/31/22 11:44 Temperature 36.5 C Temperature Source Temporal Artery Scan Pulse Rate 90 80 Pulse Rate from SpO2 Sensor Pulse Rhythm Regular Respiratory Rate 24 20 Respiratory Effort / Characteristics Non-Labored Spontaneous Respiratory Depth Normal Blood Pressure 156/97 H Blood Pressure Mean 116 Pulse Oximetry 97 93 86 L Oxygen Delivery Method Room Air Room Air Nasal Cannula Oxygen Flow Rate 0 Sepsis Recent Fever Within 48 Hours No Sepsis New/Unexplained Change in Mental Status No Sepsis Action Taken by Nursing No Action Required Oxygen Flow Rate - Titration 2 Pulse Oximetry Post Tiitration 90 08/31/22 12:32 08/31/22 12:00 08/31/22 11:30 Temperature Temperature Source Pulse Rate 69 81 Pulse Rate from SpO2 Sensor Pulse Rhythm Respiratory Rate 23 Respiratory Effort / Characteristics Respiratory Depth Blood Pressure 135/82 Blood Pressure Mean 99 Pulse Oximetry 90 Oxygen Delivery Method Oxymask Oxygen Flow Rate 2 Sepsis Recent Fever Within 48 Hours Sepsis New/Unexplained Change in Mental Status Sepsis Action Taken by Nursing Oxygen Flow Rate - Titration 4.5 Pulse Oximetry Post Tiitration 97 08/31/22 11:33 08/31/22 11:57 08/31/22 12:00 Temperature Temperature Source Pulse Rate 84 75 70 Pulse Rate from SpO2 Sensor 83 74 69 Pulse Rhythm Respiratory Rate 21 16 20 Respiratory Effort / Characteristics Respiratory Depth Blood Pressure 112/94 120/73 125/70 Blood Pressure Mean 100 88 88 Pulse Oximetry 92 95 93 Oxygen Delivery Method Oxygen Flow Rate Sepsis Recent Fever Within 48 Hours Sepsis New/Unexplained Change in Mental Status Sepsis Action Taken by Nursing Oxygen Flow Rate - Titration Pulse Oximetry Post Tiitration 08/31/22 12:30 08/31/22 13:30 08/31/22 14:00 Temperature Temperature Source Pulse Rate 68 73 68 Pulse Rate from SpO2 Sensor 69 73 68 Pulse Rhythm Respiratory Rate 22 22 16 Respiratory Effort / Characteristics Respiratory Depth Blood Pressure 127/76 134/87 118/81 Blood Pressure Mean 93 102 93 Pulse Oximetry 94 95 95 Oxygen Delivery Method Oxygen Flow Rate Sepsis Recent Fever Within 48 Hours Sepsis New/Unexplained Change in Mental Status Sepsis Action Taken by Nursing Oxygen Flow Rate - Titration Pulse Oximetry Post Tiitration 08/31/22 16:50 Temperature Temperature Source Pulse Rate 64 Pulse Rate from SpO2 Sensor Pulse Rhythm Respiratory Rate Respiratory Effort / Characteristics Respiratory Depth Blood Pressure Blood Pressure Mean Pulse Oximetry Oxygen Delivery Method Oxygen Flow Rate Sepsis Recent Fever Within 48 Hours Sepsis New/Unexplained Change in Mental Status Sepsis Action Taken by Nursing Oxygen Flow Rate - Titration Pulse Oximetry Post Tiitration Laboratory Data 08/31/22 11:34 08/31/22 11:34 Lab Results 08/31/22 08/31/22 08/31/22 Range/Units 11:34 11:34 11:34 WBC 10.74 (4.8-10.8) K/ul RBC 5.35 (4.70-6.10) M/uL Hgb 16.4 (14.0-18.0) g/dl Hct 47.4 (42.0-52.0) % MCV 88.6 (80.0-100.0) fL MCH 30.7 (25.0-34.0) pg MCHC 34.6 (32.0-36.0) g/dL RDW Std Deviation 45.0 (36.4-46.3) fL RDW Coeff of Kacey 14.2 (11.5-14.5) % Plt Count 199 (130-400) K/uL MPV 8.7 L (9.4-12.4) fL Immature Gran % (Auto) 0.6 % Neut % (Auto) 77.7 % Lymph % (Auto) 12.6 % [place] % (Auto) 6.6 % Eos % (Auto) 2.1 % Baso % (Auto) 0.4 % Neut # (Auto) 8.35 H (1.40-6.50) K/uL Lymph # (Auto) 1.35 (1.2-3.4) K/uL [place] # (Auto) 0.71 H (0.11-0.59) K/uL Eos # (Auto) 0.23 (0-0.50) K/uL Baso # (Auto) 0.04 (0-0.2) K/uL Immature Gran # (Auto) 0.06 (0.01-0.20) K/uL ESR (0-20) mm/hr PT 11.2 (9.0-12.0) Seconds INR 1.1 (0.9-1.1) APTT 27.0 (21.0-31.0) Seconds PTT Ratio 1.0 Carboxyhemoglobin % THgb Methemoglobin (0.0-1.5) % Sodium 136 (136-145) mmol/L Potassium 3.9 (3.5-5.1) mmol/L Chloride 103 (98-107) mmol/L Carbon Dioxide 25 (21-32) mmol/L Anion Gap 8 (3-11) BUN 18 (6-23) mg/dl Creatinine 1.12 (0.6-1.4) mg/dl Est Cr Clr Drug Dosing Not Reportable Est GFR ( Amer) 87.1 ml/min Est GFR (Non-Af Amer) 75.1 ml/min BUN/Creatinine Ratio 16.1 (10-20) Glucose 136 H (70-99(Fasting)) mg/dl Calcium 9.8 (8.6-10.3) mg/dl Total Bilirubin 0.5 (0.2-1.0) mg/dl AST 12 L (13-39) U/L ALT 17 (7-52) U/L Alkaline Phosphatase 74 (34-104) U/L Troponin I High Sens 5.5 (0-20) pg/ml C-Reactive Protein (0-0.5) mg/dl B-Natriuretic Peptide (0-100) pg/ml Total Protein 8.3 (6.0-8.3) gm/dl Albumin 4.5 (3.4-5.0) gm/dl Globulin 3.8 (2.5-4.0) gm/dl Albumin/Globulin Ratio 1.2 (0.9-2) Lipase 17 (11-82) U/L Procalcitonin (0-0.5) ng/ml TSH (0.300-4.500) uIu/ml SARS-CoV-2, RNA, NAAT (NEGATIVE) 08/31/22 08/31/22 08/31/22 Range/Units 13:24 15:26 15:26 WBC (4.8-10.8) K/ul RBC (4.70-6.10) M/uL Hgb (14.0-18.0) g/dl Hct (42.0-52.0) % MCV (80.0-100.0) fL MCH (25.0-34.0) pg MCHC (32.0-36.0) g/dL RDW Std Deviation (36.4-46.3) fL RDW Coeff of Kacey (11.5-14.5) % Plt Count (130-400) K/uL MPV (9.4-12.4) fL Immature Gran % (Auto) % Neut % (Auto) % Lymph % (Auto) % [place] % (Auto) % Eos % (Auto) % Baso % (Auto) % Neut # (Auto) (1.40-6.50) K/uL Lymph # (Auto) (1.2-3.4) K/uL [place] # (Auto) (0.11-0.59) K/uL Eos # (Auto) (0-0.50) K/uL Baso # (Auto) (0-0.2) K/uL Immature Gran # (Auto) (0.01-0.20) K/uL ESR 31 H (0-20) mm/hr PT (9.0-12.0) Seconds INR (0.9-1.1) APTT (21.0-31.0) Seconds PTT Ratio Carboxyhemoglobin % THgb Methemoglobin (0.0-1.5) % Sodium (136-145) mmol/L Potassium (3.5-5.1) mmol/L Chloride (98-107) mmol/L Carbon Dioxide (21-32) mmol/L Anion Gap (3-11) BUN (6-23) mg/dl Creatinine (0.6-1.4) mg/dl Est Cr Clr Drug Dosing Est GFR ( Amer) ml/min Est GFR (Non-Af Amer) ml/min BUN/Creatinine Ratio (10-20) Glucose (70-99(Fasting)) mg/dl Calcium (8.6-10.3) mg/dl Total Bilirubin (0.2-1.0) mg/dl AST (13-39) U/L ALT (7-52) U/L Alkaline Phosphatase (34-104) U/L Troponin I High Sens 3.3 (0-20) pg/ml C-Reactive Protein 2.66 H (0-0.5) mg/dl B-Natriuretic Peptide (0-100) pg/ml Total Protein (6.0-8.3) gm/dl Albumin (3.4-5.0) gm/dl Globulin (2.5-4.0) gm/dl Albumin/Globulin Ratio (0.9-2) Lipase (11-82) U/L Procalcitonin (0-0.5) ng/ml TSH (0.300-4.500) uIu/ml SARS-CoV-2, RNA, NAAT NEGATIVE (NEGATIVE) 08/31/22 08/31/22 08/31/22 Range/Units 15:26 15:26 15:27 WBC (4.8-10.8) K/ul RBC (4.70-6.10) M/uL Hgb (14.0-18.0) g/dl Hct (42.0-52.0) % MCV (80.0-100.0) fL MCH (25.0-34.0) pg MCHC (32.0-36.0) g/dL RDW Std Deviation (36.4-46.3) fL RDW Coeff of Kacey (11.5-14.5) % Plt Count (130-400) K/uL MPV (9.4-12.4) fL Immature Gran % (Auto) % Neut % (Auto) % Lymph % (Auto) % [place] % (Auto) % Eos % (Auto) % Baso % (Auto) % Neut # (Auto) (1.40-6.50) K/uL Lymph # (Auto) (1.2-3.4) K/uL [place] # (Auto) (0.11-0.59) K/uL Eos # (Auto) (0-0.50) K/uL Baso # (Auto) (0-0.2) K/uL Immature Gran # (Auto) (0.01-0.20) K/uL ESR (0-20) mm/hr PT (9.0-12.0) Seconds INR (0.9-1.1) APTT (21.0-31.0) Seconds PTT Ratio Carboxyhemoglobin % THgb Methemoglobin (0.0-1.5) % Sodium (136-145) mmol/L Potassium (3.5-5.1) mmol/L Chloride (98-107) mmol/L Carbon Dioxide (21-32) mmol/L Anion Gap (3-11) BUN (6-23) mg/dl Creatinine (0.6-1.4) mg/dl Est Cr Clr Drug Dosing Est GFR ( Amer) ml/min Est GFR (Non-Af Amer) ml/min BUN/Creatinine Ratio (10-20) Glucose (70-99(Fasting)) mg/dl Calcium (8.6-10.3) mg/dl Total Bilirubin (0.2-1.0) mg/dl AST (13-39) U/L ALT (7-52) U/L Alkaline Phosphatase (34-104) U/L Troponin I High Sens (0-20) pg/ml C-Reactive Protein (0-0.5) mg/dl B-Natriuretic Peptide 23 (0-100) pg/ml Total Protein (6.0-8.3) gm/dl Albumin (3.4-5.0) gm/dl Globulin (2.5-4.0) gm/dl Albumin/Globulin Ratio (0.9-2) Lipase (11-82) U/L Procalcitonin < 0.05 (0-0.5) ng/ml TSH 1.731 (0.300-4.500) uIu/ml SARS-CoV-2, RNA, NAAT (NEGATIVE) 08/31/22 Range/Units 15:27 WBC (4.8-10.8) K/ul RBC (4.70-6.10) M/uL Hgb (14.0-18.0) g/dl Hct (42.0-52.0) % MCV (80.0-100.0) fL MCH (25.0-34.0) pg MCHC (32.0-36.0) g/dL RDW Std Deviation (36.4-46.3) fL RDW Coeff of Kacey (11.5-14.5) % Plt Count (130-400) K/uL MPV (9.4-12.4) fL Immature Gran % (Auto) % Neut % (Auto) % Lymph % (Auto) % [place] % (Auto) % Eos % (Auto) % Baso % (Auto) % Neut # (Auto) (1.40-6.50) K/uL Lymph # (Auto) (1.2-3.4) K/uL [place] # (Auto) (0.11-0.59) K/uL Eos # (Auto) (0-0.50) K/uL Baso # (Auto) (0-0.2) K/uL Immature Gran # (Auto) (0.01-0.20) K/uL ESR (0-20) mm/hr PT (9.0-12.0) Seconds INR (0.9-1.1) APTT (21.0-31.0) Seconds PTT Ratio Carboxyhemoglobin 1.7 % THgb Methemoglobin < 0.7 (0.0-1.5) % Sodium (136-145) mmol/L Potassium (3.5-5.1) mmol/L Chloride (98-107) mmol/L Carbon Dioxide (21-32) mmol/L Anion Gap (3-11) BUN (6-23) mg/dl Creatinine (0.6-1.4) mg/dl Est Cr Clr Drug Dosing Est GFR ( Amer) ml/min Est GFR (Non-Af Amer) ml/min BUN/Creatinine Ratio (10-20) Glucose (70-99(Fasting)) mg/dl Calcium (8.6-10.3) mg/dl Total Bilirubin (0.2-1.0) mg/dl AST (13-39) U/L ALT (7-52) U/L Alkaline Phosphatase (34-104) U/L Troponin I High Sens (0-20) pg/ml C-Reactive Protein (0-0.5) mg/dl B-Natriuretic Peptide (0-100) pg/ml Total Protein (6.0-8.3) gm/dl Albumin (3.4-5.0) gm/dl Globulin (2.5-4.0) gm/dl Albumin/Globulin Ratio (0.9-2) Lipase (11-82) U/L Procalcitonin (0-0.5) ng/ml TSH (0.300-4.500) uIu/ml SARS-CoV-2, RNA, NAAT (NEGATIVE) Administered Medications Nitroglycerin (Nitroglycerin Sl 0.4 Mg/Tab Tab) 0.4 mg SL UD PRN PRN Reason: Chest Pain Stop: 09/30/22 11:21 Last Admin: 08/31/22 11:33 Dose: 0.4 mg Documented By: NRB Discontinued Medications Aspirin (Aspirin Chew 324 Mg) 324 mg PO NOW STA Stop: 08/31/22 11:23 Last Admin: 08/31/22 11:31 Dose: 324 mg Documented By: NRB Sodium Chloride (Nss 1000ml) 1,000 mls @ 999 mls/hr IV .Q1H1M ONE Stop: 08/31/22 12:58 Last Infusion: 08/31/22 13:24 Dose: 0 mls/hr Documented By: Admin: 08/31/22 12:06 Dose: 999 mls/hr Documented By: KV Ioversol (Optiray 320 500ml) 112 ml IV ONCE ONE Stop: 08/31/22 13:19 Last Admin: 08/31/22 13:19 Dose: 112 ml Documented By: KSF Morphine Sulfate (Morphine Sulfate 4 Mg/Ml 1 Ml Carp\Vial) 4 mg IV NOW STA Stop: 08/31/22 11:35 Last Admin: 08/31/22 12:06 Dose: 4 mg Documented By: KV Morphine Sulfate (Morphine Sulfate 4 Mg/Ml 1 Ml Carp\Vial) 4 mg IV NOW STA Stop: 08/31/22 12:28 Last Admin: 08/31/22 13:27 Dose: 4 mg Documented By: KMO Ondansetron HCl (Ondansetron Inj 2 Mg/Ml 2 Ml Vial) 4 mg IV NOW STA Stop: 08/31/22 11:59 Last Admin: 08/31/22 12:06 Dose: 4 mg Documented By: KV Imaging Data Radiologist's Impression: Chest X-Ray 08/31/22 11:22 XR chest 1V portable HISTORY: Chest pain, nonspecific COMPARISON: Chest 08/25/2022. FINDINGS: No pneumothorax. No pleural effusions. There are low lung volumes. The heart remains top normal in size. Stable interstitial prominence. No new focal lung consolidations to suggest pneumonia. No evidence for pulmonary edema. Cervical spinal fusion hardware is partially visualized. IMPRESSION: No significant change compared to the prior study. No acute process. ACT 112: Negative or not required by law. Electronically signed by: Emir Belle M.D. 08/31/2022 11:51 AM Chest CTA 08/31/22 11:47 CHEST CTA for PULMONARY ARTERIES CT DOSE: 631.93 mGy.cm HISTORY: Shortness of breath. Atypical chest pain. TECHNIQUE: Multiaxial CT images of the chest were performed following the intravenous administration of contrast to evaluate the pulmonary arteries. Maximal intensity projection images were also obtained. A dose lowering technique was utilized adhering to the principles of ALARA. COMPARISON STUDY: Chest CTA 10/19/2015. FINDINGS: Normal caliber thoracic aorta with no evidence for a dissection. There is mild calcified plaque within the coronary arteries. No filling defects within the pulmonary arteries to suggest a pulmonary embolus. Cervical spinal fusion hardware is partially visualized. No acute fractures. Stable lucent lesion within the mid sternum favoring a hemangioma. Limited views of the upper abdomen demonstrate hepatic steatosis and a normal spleen. The thyroid gland enhances normally. Normal caliber esophagus. The heart is normal in size. No pleural or pericardial effusions. Stable prominent subcarinal lymph nodes. These are likely benign given the long-term stability. No new/progressive lymphadenopathy within the chest. No pneumothorax. Mild diffuse bronchial wall thickening has progressed. Scattered patchy groundglass densities with a few subpleural nodular densities demonstrated in upper lobe predominance. There is also mild interlo bular septal thickening within the upper lobes. These findings are nonspecific could be due to an atypical pneumonitis or mild pulmonary edema. There is also a mosaic attenuation within the lungs suggestive of mild air trapping. IMPRESSION: 1. No evidence for a pulmonary embolus. 2. Scattered patchy groundglass densities with a few subpleural nodular densities demonstrated in upper lobe predominance. There is also mild interlobular septal thickening within the upper lobes. These findings are nonspecific could be due to an atypical pneumonitis or mild pulmonary edema. Follow-up chest CT in 3-6 months is recommended to ensure resolution of the scattered subpleural nodular densities. 3. Mild bronchial wall thickening with areas of mild air trapping within the lungs. This may represent a mild bronchitis. ACT 112: Negative or not required by law. Electronically signed by: Emir Belle M.D. 08/31/2022 1:41 PM Discharge Plan Visit Data Chief Complaint: Chest Pain Stated Complaint: CHEST PAIN, SOB ED Provider: Elliott Garcia Discharge Problem: Atypical chest pain, Hypoxia, Nausea Patient Disposition: Being Evaluated by Hospitalist Forms Stand Alone Forms: My [facility] AIRS[facility] Prescriptions Prescriptions: No Action sertraline [Zoloft] 100 mg tablet 200 mg PO QAM montelukast [Singulair] 10 mg tablet 10 mg PO QPM Qty: 90 3RF pantoprazole 40 mg tablet,delayed release (DR/EC) 40 mg PO QAM Qty: 90 3RF tadalafil 5 mg tablet 20 mg PO ONCE PRN (Reason: sexual activity) Qty: 30 11RF Qvar RediHaler 40 mcg/actuation HFA aerosol breath activated 1 inh inhalation BID Qty: 10.6 3RF Rx Instructions: WITH A RINSE OF MOUTH AFTERWARDS. cefuroxime axetil 500 mg tablet 500 mg PO BID Qty: 20 0RF Rx Instructions: BEGIN 08/25/22 X 10 DAYS Ajovy Syringe 225 mg/1.5 mL syringe 225 mg SQ MONTHLY 30 Days Qty: 1.5 11RF amlodipine 5 mg tablet 5 mg PO DAILY gemfibrozil 600 mg tablet 600 mg PO BID trazodone 150 mg Tablet 150 mg PO HS Referrals Referrals: Nigel Chowdary MD [Primary Care Provider] -
[2022-08-31 12:15] LABS: Alanine Aminotransferase 17 U/L (7-52); Albumin Globulin Ratio 1.2 (0.9-2); Albumin Level 4.5 gm/dl (3.4-5.0); Alkaline Phosphatase 74 U/L (34-104); Anion Gap 8 (3-11); Aspartate Aminotransferase 12 U/L (13-39); BUN Creatinine Ratio 16.1 (10-20); Bilirubin,Total 0.5 mg/dl (0.2-1.0); Blood Urea Nitrogen 18 mg/dl (6-23); Calcium 9.8 mg/dl (8.6-10.3); Carbon Dioxide 25 mmol/L (21-32); Chloride 103 mmol/L (98-107); Est GFR (African American) 87.1 ml/min; Est GFR (Non-African American) 75.1 ml/min; Globulin 3.8 gm/dl (2.5-4.0); Glucose 136 mg/dl (70-99(Fasting)); Lipase 17 U/L (11-82); Potassium 3.9 mmol/L (3.5-5.1); Sodium 136 mmol/L (136-145); Total Protein 8.3 gm/dl (6.0-8.3)
[2022-08-31 12:20] LABS: Troponin I High Sensitivity 5.5 pg/ml (0-20)
[2022-08-31 12:36] LABS: INR 1.1 (0.9-1.1); Prothrombin Time 11.2 Seconds (9.0-12.0)
[2022-08-31] MEDS ORDERED: OPTIRAY 320 500ml IV ONE (13:18)
--- NOTE | 2022-08-31 13:42 | CT Scan Report ---
CHEST CTA for PULMONARY ARTERIES CT DOSE: 631.93 mGy.cm HISTORY: Shortness of breath. Atypical chest pain. TECHNIQUE: Multiaxial CT images of the chest were performed following the intravenous administration of contrast to evaluate the pulmonary arteries. Maximal intensity projection images were also obtaine d. A dose lowering technique was utilized adhering to the principles of ALARA. COMPARISON STUDY: Chest CTA 10/19/2015. FINDINGS: Normal caliber thoracic aorta with no evidence for a dissection. There is mild calcified pl aque within the coronary arteries. No filling defects within the pulmonary arteries to suggest a pulm onary embolus. Cervical spinal fusion hardware is partially visualized. No acute fractures. Stable selena cent lesion within the mid sternum favoring a hemangioma. Limited views of the upper abdomen demonstr ate hepatic steatosis and a normal spleen. The thyroid gland enhances normally. Normal caliber esopha ajay. The heart is normal in size. No pleural or pericardial effusions. Stable prominent subcarinal ly mph nodes. These are likely benign given the long-term stability. No new/progressive lymphadenopathy within the chest. No pneumothorax. Mild diffuse bronchial wall thickening has progressed. Scattered p atchy groundglass densities with a few subpleural nodular densities demonstrated in upper lobe predom inance. There is also mild interlobular septal thickening within the upper lobes. These findings are nonspecific could be due to an atypical pneumonitis or mild pulmonary edema. There is also a mosaic a ttenuation within the lungs suggestive of mild air trapping. IMPRESSION: 1. No evidence for a pulmonary embolus. 2. Scattered patchy groundglass densities with a few subpleural nodular densities demonstrated in upp er lobe predominance. There is also mild interlobular septal thickening within the upper lobes. These findings are nonspecific could be due to an atypical pneumonitis or mild pulmonary edema. Follow-up chest CT in 3-6 months is recommended to ensure resolution of the scattered subpleural nodular densit ies. 3. Mild bronchial wall thickening with areas of mild air trapping within the lungs. This may represen t a mild bronchitis. ACT 112: Negative or not required by law. Electronically signed by: Emir Belle M.D. 08/31/2022 1:41 PM
--- NOTE | 2022-08-31 14:55 | History & Physical Report ---
Date of Service August 31, 2022 Assessment & Plan (1) Chest pain: Plan: Low suspicion of cardiac cause given initial troponin negative, no EKG changes and reproducibility on exam Given ongoing pain if troponins stay negative ACS can effectively be ruled out CT negative for PE but with groundglass opacities Suspect MSK possibly from back given complex spinal surgery history ?Froin's syndrome - consider neurology evaluation if pain does not improve Symptoms of numbness in thumb and finger appears to be in C6 or radial nerve dermatome - now resolved therefore will defer further workup but he reports chronic cervical spine problems. (2) Hypoxia: Plan: With shortness of breath especially on exertion since visiting [place], worse with QVAR and no improvement with albuterol or antibiotics - potentially concerning for fungal pneumonia although nothing focal on CT. CRP/ESR/Procalcitonin/Biofire/carboxyhemoglobin/methemoglobin TTE to assess for cardiac cause of hypoxia Consult pulmonology for consideration of bronchoscopy (3) Obstructive sleep apnea: Plan: Uses oral appliance for this. No prior sleep studies seen in current version of EHR. (4) Cervical spinal stenosis: (5) Esophageal reflux: Plan: Continue pantoprazole (6) Anxiety: Plan: Continue trazodone, sertraline (7) Hypertension: Plan: Continue amlodipine Plan VTE Prophylaxis - low risk Diet - heart healthy Disposition - admit to med/tele Admission and Anticipated Discharge Date Admission Date: August 31, 2022 History of Present Illness Chief Complaint: Chest pain Primary Care Provider: Nigel Chowdary MD Russel Lazcano is a 52 year old male who presents to the ER with chest pain. Chest pain started this morning around 11am, left side of his chest, pressure feeling, radiating to left shoulder/arm with numbness in his thumb and 2nd finger. 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 Associated diaphoresis, nausea and shortness of breath. Worse on inspiration. No worse with position or exertional. Initially was the most severe at 9/10, currently 7/10. He has been having ongoing nausea which correlates with antibiotic use, improved in the ER with ondansetron. This is on a background of ongoing shortness of breath and cough since visiting [place] around [place] time. Shortness of breath associated with cough. Initially he was unable to get an appointment with his PCP and therefore went to [facility] and was prescribed course of Keflex [06/12], then Levaquin [06/16], then albuterol [07/22]. He reports no improvement with any of these. He was seen at his PCP office on 08/13 and prescribed QVAR which he felt made him worse. He followed up on 08/19 and was prescribed Bactrim. His cough became worse so he returned to see Dr Chowdary on 08/25 and was prescribed Ceftin. He does not feel this has helped either. In the ER EKG was without acute ischemic changes and initial high sensitivity troponin was negative. CT for PE was negative for pulmonary embolism but did show scattered patchy groundglass densities and mild bronchial wall thickening with areas of mild air trapping. At baseline he does not require oxygen and O2 sats were 85% at rest on room air which increased > 94% on 4LPM O2 via oxymask. He was referred to medicine for admission and ongoing management of hypoxia and chest pain. Allergies Allergy/AdvReac Type Severity Reaction Status Date / Time hydromorphone Allergy Severe SHORTNESS Verified 08/31/22 14:59 OF BREATH Penicillins Allergy Severe ALLERGY TO Verified 08/31/22 14:59 [id number] doxycycline Allergy Intermediate BLISTERS/HI Verified 08/31/22 14:59 VES lamotrigine Allergy Intermediate tremors Verified 08/31/22 14:59 clindamycin AdvReac Intermediate NAUSEA Verified 08/31/22 15:17 eletriptan AdvReac Mild nausea/vomi Verified 08/31/22 14:59 ting Home Medications Medication Instructions Recorded Confirmed Type sertraline 100 mg tablet (Zoloft) 200 mg PO QAM 02/10/18 08/31/22 History trazodone 150 mg tablet 150 mg PO HS 09/03/21 08/31/22 History fremanezumab-vfrm 225 mg/1.5 mL 225 mg (1.5 mL) subcut MONTHLY 30 10/14/21 08/31/22 Rx subcutaneous syringe (ovy days #1.5 mL Syringe) montelukast 10 mg tablet 10 mg PO QPM #90 tabs 01/19/22 08/31/22 Rx (Singulair) pantoprazole 40 mg tablet,delayed 40 mg PO QAM #90 tabs 01/26/22 08/31/22 Rx release tadalafil 5 mg tablet 20 mg PO ONCE PRN sexual activity 03/05/22 08/31/22 Rx #30 tabs beclomethasone dipropionate 40 1 inh inhalation BID #10.6 grams 08/14/22 08/31/22 Rx mcg/actuation HFA breath activated aerosol (Qvar RediHaler) cefuroxime axetil 500 mg tablet 500 mg PO BID #20 tabs 08/25/22 08/31/22 Rx amlodipine 5 mg tablet 5 mg PO DAILY 08/31/22 08/31/22 History gemfibrozil 600 mg tablet 600 mg PO BID 08/31/22 08/31/22 History Past Med/Surg History Medical History Anxiety and depression Degenerative disc disease Failed back surgical syndrome Froin's syndrome History of suicide attempt Hyperlipidemia Hypertension Left lateral epicondylitis Migraine Post traumatic stress disorder Sleep apnea Spinal stenosis Status epilepticus (10/19/13) Surgical History Cyst Family history of reaction to anesthesia History of colonoscopy (~09/2021) History of esophagogastroduodenoscopy (EGD) History of lumbar fusion S/P cervical spinal fusion S/P lumbar and lumbosacral fusion by anterior technique [place] teeth removed Family History Grandfather (Maternal) Diabetes Mother FHx: skin cancer Sinus disorder Grandmother (Maternal) FHx: stomach cancer Brother Asthma Sinus disorder Father Cardiac disorder Lumbar disc disease Aunt Diabetes Uncle Diabetes Grandmother Cancer Other Gallbladder disease Heart disease Hypertension Social History Smoking Status: Never smoker Second Hand Exposure: No; Hx Alcohol Use: Yes Alcohol type: beer Hx Substance Use: No Preferred Language: Surinamese Communication Ability: Effective Visual Impairment: No Limitations Hearing Ability: Normal Digital Business Analyst Required: No Beliefs That Will Affect Care: None marital status: Current Living Situation: Family current occupational status: employed 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 Feels Safe at Home: Yes Assistive Devices: Glasses Review of Systems Review of Systems: All systems reviewed & are unremarkable except as noted in HPI & below Physical Exam Constitutional: WD/WN, vitals as above Eyes: + anicteric sclerae; normal pupil size ENMT: external ear and nose normal, oropharynx normal Respiratory: normal respiratory effort; no respiratory distress Auscultation: breath sounds present, no diminished lung sounds, no crackles, no rales, no rhonchi and no wheezes Cardiovascular: RRR, no murmur, no edema Chest (Breasts): Additional Comments: Pain reproducible on palpation over left anterior chest wall and lower chest ribs Gastrointestinal (Abdomen): normal bowel sounds, soft, nontender, no hepatosplenomegaly Musculoskeletal: no cyanosis or clubbing, extremities motor strength 5/5 Skin: no rashes, warm and dry Neurologic: moves all extremities and awake; not confused Motor/Sensory: no sensory deficit Psychiatric: A+Ox3, euthymic affect Results & Data Results & Data Vital Signs (Past 12 Hours) Vital Signs Temp Pulse Resp BP Pulse Ox O2 Del Method O2 Flow Rate 08/31/22 14:00 68 16 118/81 95 08/31/22 13:30 73 22 134/87 95 08/31/22 12:30 68 22 127/76 94 08/31/22 12:00 70 20 125/70 93 08/31/22 11:57 75 16 120/73 95 08/31/22 11:33 84 21 112/94 92 08/31/22 11:30 81 23 135/82 08/31/22 12:00 90 Oxymask 2 08/31/22 12:32 69 08/31/22 11:44 86 L Nasal Cannula 0 08/31/22 11:28 80 20 93 Room Air 08/31/22 11:21 36.5 C 90 24 156/97 H 97 Room Air Laboratory Results Abnormal lab results 08/31/22 08/31/22 Range/Units 11:34 11:34 MPV 8.7 L (9.4-12.4) fL Neut # (Auto) 8.35 H (1.40-6.50) K/uL Lamar # (Auto) 0.71 H (0.11-0.59) K/uL Glucose 136 H (70-99(Fasting)) mg/dl AST 12 L (13-39) U/L Diagnostic Findings XR chest 1V portable HISTORY: Chest pain, nonspecific COMPARISON: Chest 08/25/2022. FINDINGS: No pneumothorax. No pleural effusions. There are low lung volumes. The heart remains top normal in size. Stable interstitial prominence. No new focal lung consolidations to suggest pneumonia. No evidence for pulmonary edema. Cervical spinal fusion hardware is partially visualized. IMPRESSION: No significant change compared to the prior study. No acute process. CHEST CTA for PULMONARY ARTERIES CT DOSE: 631.93 mGy.cm HISTORY: Shortness of breath. Atypical chest pain. TECHNIQUE: Multiaxial CT images of the chest were performed following the intravenous administration of contrast to evaluate the pulmonary arteries. Maximal intensity projection images were also obtained. A dose lowering technique was utilized adhering to the principles of ALARA. COMPARISON STUDY: Chest CTA 10/19/2015. FINDINGS: Normal caliber thoracic aorta with no evidence for a dissection. There is mild calcified plaque within the coronary arteries. No filling defects within the pulmonary arteries to suggest a pulmonary embolus. Cervical spinal fusion hardware is partially visualized. No acute fractures. Stable lucent lesion within the mid sternum favoring a hemangioma. Limited views of the upper abdomen demonstrate hepatic steatosis and a normal spleen. The thyroid gland enhances normally. Normal caliber esophagus. The heart is normal in size. No pleural or pericardial effusions. Stable prominent subcarinal lymph nodes. These are likely benign given the long-term stability. No new/progressive lymphadenopathy within the chest. No pneumothorax. Mild diffuse bronchial wall thickening has progressed. Scattered patchy groundglass densities with a few subpleural nodular densities demonstrated in upper lobe predominance. There is also mild interlobular septal thickening within the upper lobes. These findings are nonspecific could be due to an atypical pneumonitis or mild pulmonary edema. There is also a mosaic attenuation within the lungs suggestive of mild air trapping. IMPRESSION: 1. No evidence for a pulmonary embolus. 2. Scattered patchy groundglass densities with a few subpleural nodular densities demonstrated in upper lobe predominance. There is also mild interlobular septal thickening within the upper lobes. These findings are nonspecific could be due to an atypical pneumonitis or mild pulmonary edema. Follow-up chest CT in 3-6 months is recommended to ensure resolution of the scattered subpleural nodular densities. 3. Mild bronchial wall thickening with areas of mild air trapping within the lungs. This may represent a mild bronchitis. Medications Administered ER Medications Given: ASA 324mg PO Nitroglycerin 0.4mg SL Ondansetron 4mg IV NSS 1L bolus Morphine 4mg IV x2 ECG Rate (beats per minute): 82 Rhythm: normal sinus Findings: no acute ischemic change Comparison ECG Date: from (December 29, 2021) Change: no significant change Code Status & VTE Plan Code Status Full VTE Prophylaxis Plan VTE Prophylaxis will be ordered: No PG Care Time/CCT Total # of Minutes Spent Total Time Spent with Patient: Total time spent is greater than 50% in coordination of care (as documented) at patient's floor/unit and/or counseling patient: Coding Level of Care Code 35891 INT INP/OBS CARE 3/75MIN Diagnoses Chest pain R07.9 Hypoxia R09.02 Obstructive sleep apnea G47.33 Cervical spinal stenosis M48.02 Esophageal reflux K21.9 Anxiety F41.9 Hypertension I10
--- NOTE | 2022-08-31 15:14 | Electrocardiogram Report ---
Test Reason : Blood Pressure : / mmHG Vent. Rate : 082 BPM Atrial Rate : 082 BPM P-R Int : 150 ms QRS Dur : 088 ms QT Int : 382 ms P-R-T Axes : 065 076 063 degrees QTc Int : 446 ms Normal sinus rhythm Possible Left atrial enlargement Borderline ECG When compared with ECG of 29-DEC-2021 08:37, Vent. rate has increased BY 27 BPM Confirmed by Reza Thompson ([id number]) on 08/31/2022 3:14:19 PM Referred By: REFERRED SELF Confirmed By:Reza Thompson
[2022-08-31 15:39] LABS: Carboxyhemoglobin 1.7 % THgb; Methemoglobin < 0.7 % (0.0-1.5)
[2022-08-31 16:06] LABS: Troponin I High Sensitivity 3.3 pg/ml (0-20)
[2022-08-31 16:19] LABS: C Reactive Protein 2.66 mg/dl (0-0.5)
[2022-08-31] MEDS ORDERED: ACETAMINOPHEN 325 MG TAB PO PRN (20:19)
[2022-08-31] MEDS ORDERED: ONDANSETRON INJ 2 MG/ML 2 ML VIAL IV PRN (20:19)
[2022-08-31] MEDS ORDERED: KETOROLAC TROMETHAMINE 15 MG/ML VIAL IV PRN (21:08)
[2022-08-31] MEDS: traZODone HCL 50 MG TAB PO SCH (21:12)
[2022-08-31] MEDS: MONTELUKAST SODIUM 10 MG TABLET PO SCH (21:12)
[2022-08-31 21:16] LABS: Adenovirus PCR Not Detected (NotDetected); Coronavirus 229E PCR Not Detected (NotDetected); Coronavirus HKU1 PCR Not Detected (NotDetected)
[2022-08-31 21:17] LABS: Bordetella parapertussis PCR Not Detected (NotDetected); Bordetella pertussis PCR Not Detected (NotDetected); Chlamydia pneumoniae PCR Not Detected (NotDetected); Coronavirus CoV-2 (COVID19)PCR Not Detected (NotDetected); Coronavirus NL63 PCR Not Detected (NotDetected); Coronavirus OC43PCR Not Detected (NotDetected); Human Metapneumovirus PCR Not Detected (NotDetected); Influenza A (H1 2009) PCR Not Detected (NotDetected); Influenza A (H1) PCR Not Detected (NotDetected); Influenza A (H3) PCR Not Detected (NotDetected); Influenza A NoSubtype PCR Not Detected (NotDetected); Influenza A PCR Not Detected (NotDetected); Influenza B PCR Not Detected (NotDetected); Mycoplasma pneumoniae PCR Not Detected (NotDetected); Parainfluenza Virus 1 PCR DETECTED (NotDetected); Parainfluenza Virus 2 PCR Not Detected (NotDetected); Parainfluenza Virus 3 PCR Not Detected (NotDetected); Parainfluenza Virus 4 PCR Not Detected (NotDetected); Respiratory Syncytial VirusPCR Not Detected (NotDetected); Rhinovirus/Enterovirus PCR Not Detected (NotDetected)
[2022-08-31] MEDS: gemfibroziL 600 MG TAB PO SCH (21:22)
[2022-09-01] MEDS ORDERED: guaiFENesin/DEXTROM SYRUP 200MG/20MG 10ML UDC PO PRN (03:10)
[2022-09-01] MEDS ORDERED: BENZONATATE 100 MG CAPSULE PO PRN (03:10)
[2022-09-01 07:31] LABS: Basophils # (auto) 0.05 K/uL (0-0.2); Basophils % (auto) 0.6 %; Eosinophils # (auto) 0.25 K/uL (0-0.50); Hematocrit (blood only) 46.9 % (42.0-52.0); Hemoglobin 15.3 g/dl (14.0-18.0); Immature Granulocytes # (auto) 0.04 K/uL (0.01-0.20); Immature Granulocytes % (auto) 0.5 %; Lymphocytes # (auto) 1.38 K/uL (1.2-3.4); Lymphocytes % (auto) 16.7 %; Mean Corpuscular Hemoglobin 29.9 pg (25.0-34.0); Mean Corpuscular Hgb Conc 32.6 g/dL (32.0-36.0); Mean Corpuscular Volume 91.6 fL (80.0-100.0); Mean Platelet Volume 8.8 fL (9.4-12.4); Monocytes # (auto) 0.84 K/uL (0.11-0.59); Monocytes % (auto) 10.2 %; Neutrophils # (auto) 5.71 K/uL (1.40-6.50); Platelet Count 192 K/uL (130-400); RDW Coefficient of Variation 14.1 % (11.5-14.5); RDW Standard Deviation 47.1 fL (36.4-46.3); Red Blood Count 5.12 M/uL (4.70-6.10); White Blood Count 8.27 K/ul (4.8-10.8)
[2022-09-01 08:09] LABS: BUN Creatinine Ratio 14.2 (10-20); Calcium 9.1 mg/dl (8.6-10.3); Creatinine Clr Calc Pharmacy 102.6 ml/min; Est GFR (African American) 93.1 ml/min; Est GFR (Non-African American) 80.3 ml/min; Magnesium 2.2 mg/dl (1.7-2.4); Potassium 4.2 mmol/L (3.5-5.1)
--- NOTE | 2022-09-01 08:22 | Pulmonary Consultation ---
Date of Consultation September 01, 2022 Assessment & Plan (1) Parainfluenza virus bronchitis: (2) Acute viral bronchiolitis: (3) Cough: Plan IMPRESSION: 52-year-old male presenting with symptoms of ongoing cough for the last 3 months presenting with hypoxia and chest discomfort with worsening cough and CT finding of bronchiolitis, interlobar septal thickening, ground glass opacities, and subpleural nodular densities. Pulmonary medicine consulted evaluation and management. RECOMMENDATIONS: 1. Acute Viral Bronchiolitis - * Likely in the setting of parainfluenza virus. * Patient has had symptoms of what appears to be a subacute cough for the last 3 months. Question if the patient had initial upper airway infection with postinfectious cough versus upper airway cough syndrome for the last few months. * His symptoms have clearly worsened and now have resulted in hypoxia and CT c hanges noted above. This favors bronchiolitis in the setting of parainfluenza infection. * Patient has no other exposure risks. Well he transiently traveled to the [facility], this would be a very rare presentation the patient with a positive parainfluenza PCR which could explain his current symptomatology and CT findings. * Will place the patient on a short course of prednisone (40 mg for 5 days). * Patient does have some slight rales in the LEFT lower lung base. Will add a one-time dose of 20 mg Lasix today. * Patient will be evaluated tomorrow. If he shows improvement clinically, can likely defer bronchoscopic evaluation, however would have low threshold for bronchoscopy with BAL if his symptoms were not to improve. * Follow-up high-resolution CT scan in 8 weeks with pulmonary function testing to be performed in the interim as well. * We can see him in office at that time. 2. Cough - * Question if the patient has a degree of upper airway cough syndrome. He describes postnasal drip and more clearing of phlegm from his throat. The cough is worse with laying flat. * He has used Flonase in the past with mild relief of symptoms. * Can consider placing the patient on nasal saline flushes, decongestant, Flonase, and antihistamine for a period of time. Will hold of now until we see how he improves with current treatment. Thank you for allowing us to participate in the care of this patient. We will continue to follow along. Supervising Physician Co-Signing Physician Notes Patient seen with the ROSA. Agree with the assessment and plan aside for any additions noted. Patient with respiratory bronchiolitis secondary to viral infection. Give course of 5 days prednisone. Continue atypical coverage with antibiotics. Can consider bronchoscopy if no improvement in symptoms. We will need HRCT and PFTs in 8 weeks for follow-up to evaluate for ILD such as HP. Also possible upper airway cough syndrome. Add Flonase and antihistamine. History of Present Illness Reason for Consultation: Nonresolving PNA, ?fungal, [place] Requesting Physician: Dr. Mccain Attending Physician: Nicolas Chung, History of Present Illness Patient is a 52-year-old male with a significant past medical history of lumbar degenerative disc disease, esophageal reflux, thoracic degenerative disc disease, PTSD, allergic rhinitis, DILLAN, hypertension, dyslipidemia, migraines, anxiety, depression, and Froin's syndrome. Patient presented to the emergency department yesterday with a chief complaint of chest pain, nausea, shortness of breath. Patient explains that he had initially traveled out west to [place], [place], in [place] for vacation at the beginning of June. He states that on around June 14, he developed a sore throat. He had a virtual doctor's visit and was prescribed Keflex for presumed strep throat. This seemed to help with his sore throat, however he then was complaining of a cough. During another virtual visit, he was prescribed Levaquin. Symptoms of cough never completely resolved. He had persistent symptoms into July. He was eventually seen at his primary care provider's office in August and placed on Bactrim as well as Qvar inhaler. He reports that his symptoms of cough had worsened with the steroid inhaler and he was seen back in the office and had a repeat chest x-ray performed and was placed on cefdinir. Patient has completed the course of medications, but has had a persistent cough. He describes it as chronic and lingering. He does report some postnasal drip. He states his cough is worse with laying flat. He has tried Flonase with minimal relief of symptoms. He reports that his symptoms were more manageable up until the last few days and the chest pain is what eventually prompted visit today. During discussion, the patient reports that no one else in his family or close contacts had developed similar symptoms. He he reports a history of allergies to horses. There is a cat that lives in the house which she is not allergic to. 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 He has been working with all of these materials for several years and had no other recent symptoms. He is a lifelong non-smoker. No history of vaping or e- cigarettes. He has no exposures to birds, turtles, or other exotic animals. They do have a fresh water fish tank in the house which has been there for several years as well and is primarily managed by his son. Patient is fully vaccinated for influenza and COVID-19. Currently, the patient denies complaints of chest pain, palpitations, pleuritic pain, hemoptysis, headaches, dizziness, lightheadedness, nausea, vomiting, or abdominal discomfort. Allergies Allergy/AdvReac Type Severity Reaction Status Date / Time hydromorphone Allergy Severe SHORTNESS Verified 08/31/22 14:59 OF BREATH Penicillins Allergy Severe ALLERGY TO Verified 08/31/22 14:59 [id number] doxycycline Allergy Intermediate BLISTERS/HI Verified 08/31/22 14:59 VES lamotrigine Allergy Intermediate tremors Verified 08/31/22 14:59 clindamycin AdvReac Intermediate NAUSEA Verified 08/31/22 15:17 eletriptan AdvReac Mild nausea/vomi Verified 08/31/22 14:59 ting Home Medications Medication Instructions Recorded Confirmed Type sertraline 100 mg tablet (Zoloft) 200 mg PO QAM 02/10/18 08/31/22 History trazodone 150 mg tablet 150 mg PO HS 09/03/21 08/31/22 History fremanezumab-vfrm 225 mg/1.5 mL 225 mg (1.5 mL) subcut MONTHLY 30 10/14/21 08/31/22 Rx subcutaneous syringe ( #1.5 mL Syringe) montelukast 10 mg tablet 10 mg PO QPM #90 tabs 01/19/22 08/31/22 Rx (Singulair) pantoprazole 40 mg tablet,delayed 40 mg PO QAM #90 tabs 01/26/22 08/31/22 Rx release tadalafil 5 mg tablet 20 mg PO ONCE PRN sexual activity 03/05/22 08/31/22 Rx #30 tabs beclomethasone dipropionate 40 1 inh inhalation BID #10.6 grams 08/14/22 08/31/22 Rx mcg/actuation HFA breath activated aerosol (Qvar RediHaler) cefuroxime axetil 500 mg tablet 500 mg PO BID #20 tabs 08/25/22 08/31/22 Rx amlodipine 5 mg tablet 5 mg PO DAILY 08/31/22 08/31/22 History gemfibrozil 600 mg tablet 600 mg PO BID 08/31/22 08/31/22 History Patient History Medical History Anxiety and depression 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 DICKINSON History of suicide attempt Hyperlipidemia Hypertension Left lateral epicondylitis Migraine Post traumatic stress disorder Sleep apnea no device Spinal stenosis Status epilepticus (10/19/13) No problems since, had mini-seizures r/t "body shutting down". believed r/t the Froin's syndrome. treated at [facility]. HOSPITALIZED 2013 AND 2015 "BELIEVES RELATED TO GABAPENTIN NOT BROKEN DOWN" Surgical History Cyst REMOVED FROM BACK Family history of reaction to anesthesia BROTHER>NAUSEA History of colonoscopy (~09/2021) History of esophagogastroduodenoscopy (EGD) History of lumbar fusion TOTAL 5 LUMBAR SURGERIES (4 POSTERIOR/1 ANTERIOR>LAST LUMBAR) S/P cervical spinal fusion GOOD ROM S/P lumbar and lumbosacral fusion by anterior technique 2003 [place] teeth removed Family History Grandfather (Maternal) Diabetes Mother FHx: skin cancer Sinus disorder Grandmother (Maternal) FHx: stomach cancer Brother Asthma Sinus disorder Father Cardiac disorder Lumbar disc disease Aunt Diabetes Uncle Diabetes Grandmother Cancer Other Gallbladder disease Heart disease Hypertension Social History Smoking Status: Never smoker Second Hand Exposure: No; Hx Alcohol Use: Yes Alcohol type: beer Hx Substance Use: No Preferred Language: Uzbek Communication Ability: Effective Visual Impairment: No Limitations Hearing Ability: Normal Belt Puncher Required: No Beliefs That Will Affect Care: None marital status: Current Living Situation: Spouse current occupational status: employed 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 All else were negative. Physical Exam Physical Exam: VITAL SIGNS - Vital signs and nursing notes were reviewed. GENERAL - 52-year-old male appearing his stated age who is in no acute distress. Communicates well with provider and answers questions appropriately. SKIN - Without rashes or lesions. NOSE - Midline and without cyanosis. No epistaxis or purulent drainage noted. MOUTH/OROPHARYNX - Without perioral cyanosis. Buccal mucosa pink and moist. NECK - Neck with FROM. LUNGS - Chest wall evaluation demonstrates normal chest wall A:P diameter. Auscultation reveals slight LEFT-sided basilar rales. No wheezes appreciated throughout. CARDIAC - RRR with S1/S2. No murmur, rubs, or gallops appreciated. ABDOMEN - Abdominal inspection demonstrates protuberant abdomen. BS normoactive all four quadrants. No tenderness, palpable masses, or ascites noted. EXTREMITIES - Nail clubbing not present. No peripheral cyanosis. No pretibial edema present. +3/5 radial palpated throughout. PSYCH - A&Ox3 and cooperates fully with examiner. Pt is very pleasant and interacts well with examiner. Results & Data Results & Data Vital Signs (Past 12 Hours) Vital Signs Temp Pulse Pulse Resp BP Pulse Ox O2 Del Method 09/01/22 07:21 57 L 09/01/22 06:58 36.5 C 67 18 147/91 H 94 Oxymask 09/01/22 03:05 36.7 C 63 18 131/73 94 Oxymask 08/31/22 22:00 Oxymask 08/31/22 22:00 36.6 C 60 18 144/82 H 93 Oxymask 08/31/22 23:28 70 08/31/22 21:00 75 08/31/22 23:15 36.5 C 67 18 142/76 H 93 Oxymask O2 Flow Rate 09/01/22 07:21 09/01/22 06:58 5 09/01/22 03:05 5 08/31/22 22:00 4 08/31/22 22:00 4 08/31/22 23:28 08/31/22 21:00 08/31/22 23:15 5 PG Care Time/CCT Total # of Minutes Spent Total Time Spent with Patient: Total time spent is greater than 50% in coordination of care (as documented) at patient's floor/unit and/or counseling patient: Coding Level of Care Code 43229 IN/OBS CONSULT LVL 4,60M Diagnoses Parainfluenza virus bronchitis J20.4 Acute viral bronchiolitis J21.8; B97.89 Cough R05.9
[2022-09-01] MEDS ORDERED: FUROSEMIDE 20 MG TAB PO ONE (08:52)
[2022-09-01] MEDS: predniSONE 20 MG TAB PO SCH (10:09)
[2022-09-01] MEDS: gemfibroziL 600 MG TAB PO SCH ×2 (10:09→21:11)
[2022-09-01] MEDS: amLODIPine BESYLATE 5 MG TAB PO SCH (10:10)
[2022-09-01] MEDS: PANTOprazole 40 MG TAB PO SCH (10:10)
[2022-09-01] MEDS: SERTRALINE HCL 100 MG TABLET PO SCH (10:10)
[2022-09-01] MEDS: CETIRIZINE HCL 10 MG TABLET PO SCH (12:03)
[2022-09-01] MEDS: FLUTICASONE PROPIONATE NA SPR 16 GM BTL SCH (12:03)
--- NOTE | 2022-09-01 14:28 | XCELERA ---
[id number] [id number]
--- NOTE | 2022-09-01 17:59 | Hospitalist Progress Note ---
Date of Service September 01, 2022 Assessment & Plan (1) Hypoxia: Plan: Pulmonary input greatly appreciated. Most likely viral. Discussed with patient and wifeunder normal circumstances, certainly viral for this long would not make sense. At the same time, given how many different respiratory viruses have been circulating this winter (discussed with them that it is probably been the single worst respiratory virus season of my entire career), it actually does make sense that he could have been suffering from 1 viral illness after another. Agree with/appreciate pulmonary's plan for steroids, supportive care. If he does not improve, fails to return to normal, or shows any worseningthen definitely bronchoscopy, otherwise steroids, supportive care, time. (2) Chest pain: Plan: Does not appear to be cardiac. Given hypoxia, and given that he is feeling better with breathing better and the chest pain went awayalmost certainly are lung related. (3) Obstructive sleep apnea: Plan: Uses oral appliance for this. Outpatient follow-up (4) Cervical spinal stenosis: (5) Esophageal reflux: Plan: Continue pantoprazole (6) Anxiety: Plan: Continue trazodone, sertraline (7) Hypertension: Plan: Continue amlodipine Plan VTE Prophylaxis - low risk Diet - heart healthy Disposition -maintain in hospital until his hypoxia improves. Anticipate being able to discharge home with close follow-up Admission and Anticipated Discharge Date Admission Date: August 31, 2022 Results & Data Results & Data Vital Signs (Past 12 Hours) Vital Signs Temp Pulse Pulse Resp BP Pulse Ox O2 Del Method 09/01/22 15:57 77 09/01/22 15:10 98.2 F 71 18 148/73 H 93 Nasal Cannula 09/01/22 11:53 98.6 F 66 20 125/74 95 Nasal Cannula 09/01/22 10:24 Nasal Cannula 09/01/22 07:21 57 L 09/01/22 06:58 97.7 F 67 18 147/91 H 94 Oxymask O2 Flow Rate 09/01/22 15:57 09/01/22 15:10 4 09/01/22 11:53 4 09/01/22 10:24 4 09/01/22 07:21 09/01/22 06:58 5 PG Care Time/CCT Total # of Minutes Spent Total Time Spent with Patient: Total time spent is greater than 50% in coordination of care (as documented) at patient's floor/unit and/or counseling patient: Coding Level of Care Code 51623 SUB INP/OBS CARE 235MIN Diagnoses Hypoxia R09.02 Chest pain R07.9 Obstructive sleep apnea G47.33 Cervical spinal stenosis M48.02 Esophageal reflux K21.9 Anxiety F41.9 Hypertension I10
[2022-09-01] MEDS: traZODone HCL 50 MG TAB PO SCH (21:10)
[2022-09-01] MEDS: MONTELUKAST SODIUM 10 MG TABLET PO SCH (21:11)
[2022-09-02] MEDS: gemfibroziL 600 MG TAB PO SCH (08:07)
[2022-09-02] MEDS: amLODIPine BESYLATE 5 MG TAB PO SCH (08:07)
[2022-09-02] MEDS: FLUTICASONE PROPIONATE NA SPR 16 GM BTL SCH (08:07)
[2022-09-02] MEDS: SERTRALINE HCL 100 MG TABLET PO SCH (08:07)
[2022-09-02] MEDS: predniSONE 20 MG TAB PO SCH (08:07)
[2022-09-02] MEDS: PANTOprazole 40 MG TAB PO SCH (08:07)
[2022-09-02] MEDS: CETIRIZINE HCL 10 MG TABLET PO SCH (08:08)
[2022-09-02] MEDS ORDERED: AZITHROMYCIN 250 MG TAB PO ONE (09:00)
--- NOTE | 2022-09-02 09:02 | Pulmonology Progress Note ---
Date of Service September 02, 2022 Assessment & Plan (1) Parainfluenza virus bronchitis: (2) Acute viral bronchiolitis: (3) Cough: Plan IMPRESSION: 52-year-old male presenting with symptoms of ongoing cough for the last 3 months presenting with hypoxia and chest discomfort with worsening cough and CT finding of bronchiolitis, interlobar septal thickening, ground glass opacities, and subpleural nodular densities. Pulmonary medicine consulted evaluation and management. RECOMMENDATIONS: 1. Acute Viral Bronchiolitis - * Likely in the setting of parainfluenza virus. * Patient has had symptoms of what appears to be a subacute cough for the last 3 months. Question if the patient had initial upper airway infection with postinfectious cough versus upper airway cough syndrome for the last few months. * His symptoms have clearly worsened and now have resulted in hypoxia and CT yslvia nges noted above. This favors bronchiolitis in the setting of parainfluenza infection. * Patient has no other exposure risks. Well he transiently traveled to the [facility], this would be a very rare presentation the patient with a positive parainfluenza PCR which could explain his current symptomatology and CT findings. * Will place the patient on a short course of prednisone (40 mg for 5 days). * Diuresed well with one time dose of lasix. Will hold off on further doses for now. * Feeling better this morning. Nursing is working on titrating down his supplemental O2. * Would encourage increasing ambulation today and continued use of Incentive spirometer. Hopeful to titrate O2 down to off. * No need for bronchoscopic evaluation at this point. Will provide patient diet orders. * Will add atypical coverage in the form of Azithromycin - patient has tolerated this well in the past. * Follow-up high-resolution CT scan in 8 weeks with pulmonary function testing to be performed in the interim as well. * We can see him in office at that time. 2. Cough - * Question if the patient has a degree of upper airway cough syndrome. He describes postnasal drip and more clearing of phlegm from his throat. The cough is worse with laying flat. * Continue Flonase and antihistamine. * Can consider adding nasal saline flushes in the outpatient. Thank you for allowing us to participate in the care of this patient. We will continue to follow along. Admission and Anticipated Discharge Date Admission Date: August 31, 2022 Subjective Patient was seen and evaluated at bedside today. He reports feeling better. He has a persistent cough which he is aware may take time for complete resolve. Otherwise, he anxious for disposition planning. Review of Systems Review of Systems: A complete 10 point review of systems was reviewed with the patient with pertinent positives and negatives as per history of present illness. All else were negative. Physical Exam Physical Exam: VITAL SIGNS - Vital signs and nursing notes were reviewed. GENERAL - 52-year-old male appearing his stated age who is in no acute distress. Communicates well with provider and answers questions appropriately. MOUTH/OROPHARYNX - Without perioral cyanosis. LUNGS - Chest wall evaluation demonstrates normal chest wall A:P diameter. Auscultation reveals slight LEFT-sided basilar rales. No wheezes appreciated throughout. CARDIAC - RRR with S1/S2. No murmur, rubs, or gallops appreciated. EXTREMITIES - No pretibial edema present. PSYCH - A&Ox3 and cooperates fully with examiner. Pt is very pleasant and interacts well with examiner. Results & Data Results & Data Vital Signs (Past 12 Hours) Vital Signs Temp Pulse Pulse Resp BP Pulse Ox O2 Del Method 09/02/22 07:02 50 L 09/02/22 06:27 36.7 C 60 18 121/70 94 Nasal Cannula 09/02/22 04:08 36.7 C 68 18 123/73 93 Nasal Cannula 09/01/22 21:00 Nasal Cannula 09/02/22 00:17 66 09/01/22 23:01 36.8 C 63 18 120/67 91 Nasal Cannula O2 Flow Rate 09/02/22 07:02 09/02/22 06:27 4 09/02/22 04:08 4 09/01/22 21:00 4 09/02/22 00:17 09/01/22 23:01 4 PG Care Time/CCT Total # of Minutes Spent Total Time Spent with Patient: Total time spent is greater than 50% in coordination of care (as documented) at patient's floor/unit and/or counseling patient: Coding Level of Care Code 81432 SUB INP/OBS CARE 3/50MIN Diagnoses Parainfluenza virus bronchitis J20.4 Acute viral bronchiolitis J21.8; B97.89 Cough R05.9
--- NOTE | 2022-09-02 17:06 | Discharge Summary ---
Date of Service September 02, 2022 Admission HPI Per Admitting Provider Russel Lazcano is a 52 year old male who presents to the ER with chest pain. Chest pain started this morning around 11am, left side of his chest, pressure feeling, radiating to left shoulder/arm with numbness in his thumb and 2nd finger. 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 Associated diaphoresis, nausea and shortness of breath. Worse on inspiration. No worse with position or exertional. Initially was the most severe at 9/10, currently 7/10. He has been having ongoing nausea which correlates with antibiotic use, improved in the ER with ondansetron. This is on a background of ongoing shortness of breath and cough since visiting [place] around [place] time. Shortness of breath associated with cough. Initially he was unable to get an appointment with his PCP and therefore went to [facility] and was prescribed course of Keflex [06/12], then Levaquin [06/16], then albuterol [07/22]. He reports no improvement with any of these. He was seen at his PCP office on 08/13 and prescribed QVAR which he felt made him worse. He followed up on 08/19 and was prescribed Bactrim. His cough became worse so he returned to see Dr Chowdary on 08/25 and was prescribed Ceftin. He does not feel this has helped either. In the ER EKG was without acute ischemic changes and initial high sensitivity troponin was negative. CT for PE was negative for pulmonary embolism but did show scattered patchy groundglass densities and mild bronchial wall thickening with areas of mild air trapping. At baseline he does not require oxygen and O2 sats were 85% at rest on room air which increased > 94% on 4LPM O2 via oxymask. He was referred to medicine for admission and ongoing management of hypoxia and chest pain. Principal Diagnosis Viral bronchitis/pneumonia Discharge Exam In general he is awake alert oriented pleasant no distress. HEENT normocephalic atraumatic mucous membranes moist. Lungs are clearsomewhat diminished air entry but no rales rhonchi or wheezes good effort. He is 94% on room air after about a 200 foot walk. No respiratory distress/accessory muscle useshe was conversational during the entire time ambulating. Neuro shows no focal deficits. Discharge Data Allergies Allergy/AdvReac Type Severity Reaction Status Date / Time hydromorphone Allergy Severe SHORTNESS Verified 08/31/22 14:59 OF BREATH Penicillins Allergy Severe ALLERGY TO Verified 08/31/22 14:59 [id number] doxycycline Allergy Intermediate BLISTERS/HI Verified 08/31/22 14:59 VES lamotrigine Allergy Intermediate tremors Verified 08/31/22 14:59 clindamycin AdvReac Intermediate NAUSEA Verified 08/31/22 15:17 eletriptan AdvReac Mild nausea/vomi Verified 08/31/22 14:59 ting Consultations 08/31/22 14:37 ED Decision to Admit Stat 08/31/22 20:19 Consult Pulmonology Routine Ordered Studies 08/31/22 11:47 CT angio chest PE protocol Stat Hospital Course (1) Hypoxia: Pulmonary input greatly appreciated. Most likely viral. Discussed with patient and yesterday, reiterated with patient todayunder normal circumstances, certainly viral for this long would not make sense. At the same time, given how many different respiratory viruses have been circulating this winter (discussed with them that it is probably been the single worst respiratory virus season of my entire career), it actually does make sense that he could have been suffering from 1 viral illness after another. Agree with/appreciate pulmonary's plan for steroids, supportive care. Is improvingfinish prednisone burst, finish azithromycin, outpatient PCP and pulmonary follow-up, PFTs, HRCT, etc. (2) Chest pain: Does not appear to be cardiac. Given hypoxia, and given that he is feeling better with breathing better and the chest pain went awayalmost certainly are lung related. And this resolved (3) Obstructive sleep apnea: Uses oral appliance for this. Outpatient follow-up (4) Cervical spinal stenosis: (5) Esophageal reflux: Continue pantoprazole (6) Anxiety: Continue trazodone, sertraline (7) Hypertension: Continue amlodipine Plan VTE Prophylaxis - low risk, ambulation Diet - heart healthy Disposition -safe for home given that hypoxia resolved, close outpatient follow- up. Total Time Total Time Spent Total Time Spent (In Minutes): Less than 30 Discharge Plan Discharge Items Patient Disposition: Home - Self-Care Reason For Visit: HYPOXIA, ATYPICAL CHEST PAIN Discharge Diagnosis: hypoxia - viral bronchitis/pneumonia Activity: Resume your previous activity Non-emergency contact: Primary Care Provider and [place] Call non-emergency contact if: you have any medication questions and your symptoms worsen Follow-up/Referrals: Nigel Chowdary MD [Primary Care Provider] - 09/07/22 2:00 pm Diet: Regular Addtl Attending Provider Instructions: Hypoxia -It appears that your hypoxia was due to a parainfluenza bronchitis/pneumonia superimposed on having had multiple viral illnesses over the last few months. Like we discussed, normally this would be a bit atypical, but given that your CT scan really looks like a viral bronchitis type picture to pulmonary review, and given that this year has been fairly unprecedented as far as the number/severity of respiratory viruses circulating, it makes sense given the full context -Obviously we want to make sure that not only do get better, but you stay betterto that end we will finish out a course of treatment and have you plugged in with pulmonary and your PCP for close/ongoing follow-up. -We will finish out a course of steroids with prednisone for 3 more days (next dose tomorrow). For most people a 5-day burst of prednisone works just as well as a longer taper. There are some people who do benefit from a longer course of treatment,'s but it is unlikely. To that end, if you were to feel worse 1-2 days after the prednisone has been finished, call pulmonary/your PCP for a longer course of treatment (again unlikely you will need). -We are also finishing out a course of antibiotics with azithromycin. This is both to cover for the possibility of atypical bacteria that are "[id number]" with the parainfluenza virus, as well as the fact that azithromycin has a bit of a pulmonary anti-inflammatory effect different than other antibiotics/other medicationsyou will take 250 mg tomorrow through Wednesday (4 days total at home, 5 days in all) Cough -It is exceedingly common whenever somebody has had viral illnessesespecially bronchitis or sinusitis, to have an ongoing cough for a while. A lot of this is simply due to inflammation taking a while to settle down, some of it in a vicious cycle is that the cough itself can create airway/vocal cord irritation that triggers nerves to continue the cough. The biggest "cure" for this cough is time, but to try to accelerate things we will be doing the following: Flonase twice a day to try to help settle down any postnasal drip that may be perpetuating the cough. Zyrtec as an antihistamine daily to try to reduce histamine mediated inflammation/congestion that would be driving the cough. Pending Studies at Discharge: No Stand-Alone Forms: My [facility], Smoking Cessation Medications and DC Order Prescriptions: New prednisone 20 mg Tablet 40 mg PO DAILY Qty: 3 0RF benzonatate 100 mg Capsule 200 mg PO TID PRN (Reason: cough) Qty: 30 0RF azithromycin 250 mg tablet 250 mg PO DAILY Qty: 4 0RF fluticasone propionate [Flonase Allergy Relief] 50 mcg/actuation spray,suspension 1 spray intranasal BID Qty: 16 1RF Rx Instructions: administer into each nostril Zyrtec 10 mg capsule 10 mg PO DAILY Qty: 30 1RF Continued sertraline [Zoloft] 100 mg tablet 200 mg PO QAM montelukast [Singulair] 10 mg tablet 10 mg PO QPM Qty: 90 3RF pantoprazole 40 mg tablet,delayed release (DR/EC) 40 mg PO QAM Qty: 90 3RF tadalafil 5 mg tablet 20 mg PO ONCE PRN (Reason: sexual activity) Qty: 30 11RF Qvar RediHaler 40 mcg/actuation HFA aerosol breath activated 1 inh inhalation BID Qty: 10.6 3RF Rx Instructions: WITH A RINSE OF MOUTH AFTERWARDS. Ajovy Syringe 225 mg/1.5 mL syringe 225 mg SQ MONTHLY 30 Days Qty: 1.5 11RF amlodipine 5 mg tablet 5 mg PO DAILY gemfibrozil 600 mg tablet 600 mg PO BID trazodone 150 mg Tablet 150 mg PO HS Discontinued cefuroxime axetil 500 mg tablet 500 mg PO BID Qty: 20 0RF Rx Instructions: BEGIN 08/25/22 X 10 DAYS Discharge Orders: Discharge Order (Routine); Ordered 09/02/22 Ordered By: Nicolas Chung Admission Data Admit Date/Time: 08/31/22 16:28 Attending Provider: Nicolas Chung Admit Provider: Ignacio Mccain Primary Care Provider: Nigel Chowdary Other Providers: Ignacio Mccain ; Rodrick Gusman Other Interventions: Discharge Summary Assessment (RN) Last Done: 09/02/22 14:28 Coding Level of Care Code 97272 IN/OBS DISCH 30 MIN/LESS Diagnoses Hypoxia R09.02 Chest pain R07.9 Obstructive sleep apnea G47.33 Cervical spinal stenosis M48.02 Esophageal reflux K21.9 Anxiety F41.9 Hypertension I10
[2022-09-03] MEDS ORDERED: AZITHROMYCIN 250 MG TAB PO SCH (09:00)
== END 2022-09-02 16:08 | disposition home or self-care (01) | DRG 194 ==
LOC: ED 11:05 → EDINP 16:28 → SUATTDRO 16:28 → 2N 20:03

== ENCOUNTER 2023-09-05 18:01 | Inpatient (IN) ==
--- NOTE | 2023-09-05 18:42 | Emergency Department Note ---
Impression & Plan NSTEMI (non-ST elevated myocardial infarction), Chest pain, Headache ED Provider Note NAME: PROMISE BLACKMAN AGE: 53 SEX: M : 1970 ARRIVES VIA: Walk-In INFORMANT: Patient, ED PROVIDER(S): Willie Mix MD CHIEF COMPLAINT: Chest pain, headache MEDICAL DECISION MAKING: Patient presents due to concern for chest pain and headache. IV was established and blood was obtained. PT is noted on EKG ordered nitro and aspirin. CT of the head ordered given the patient's atypical headache symptoms not consistent with his typical migraine. Blood work shows a normal white count H&H and platelet count kidney function was unremarkable. Initial troponin negative. Patient's was reassessed and the patient was still having pain. The patient was ordered fentanyl without improvement in symptoms. The patient was subsequently Toradol and morphine which the patient has tolerated before. The patient had virtual resolution of his symptoms. Repeat troponin was elevated at 11 making the patient aware of the findings and recommendations. Patient was admitted by Dr. Palomo. 1600. Patient's repeat EKG after the initial appeared improved with regard to peaked T's noted in the anterior lateral leads. Patient does not have any evidence of STEMI at this time. The patient was ordered a heparin bolus and drip. I did speak the on-call hospitalist service after Critical Care: I have personally spent 35 minutes of critical care time in direct management of this patient. This includes bedside care, interpretation of diagnostic studies, and testing, discussion with consultants, patient, and family members, and other require inpatient management activities. This 35 minutes is in excess of all separately billable procedures. Discussion w/ other healthcare providers: Dr. Palomo inpatient medicine service Prior /Outside records reviewed: None Differential diagnosis: Cardiac ischemia, aortic dissection, musculoskeletal pain, ICH, migraine, pulmonary embolism, pneumothorax, pneumonia, pericarditis, myocarditis, GERD, cholecystitis, pancreatitis, musculoskeletal, as well as other pathologies were considered. Diagnostics, as interpreted by me: ECG: Normal sinus rhythm, rate of 67, normal intervals, normal axis peaked T's anteriorly and laterally. Peaked T waves are new from comparison EKG completed. PTs may be new from comparison EKG from August 2022 Cardiac monitoring: An order was placed for continuous cardiac monitoring. The monitor shows a rate of 65 with sinus rhythm. Patient was placed on pulse oximetry Medical decision rules: Heart score Imaging studies: I informally interpreted the patient's Chest x-ray does not show obvious pneumonia or pneumothorax with formal report to follow. HPI: Patient presents due to concern for chest pain and headache. The patient states that he was planting seedlings in the yard and around 4 PM developed a right-sided headache and now has right-sided chest pain. Patient does have a history of migraines for which she does receive monthly injections and does follow with Dr. Shea with neurology. He states that this is atypical from his typical symptoms usually include watering of the eyes and associated aura which she has not developed. Patient denies any numbness tingling or focal weakness no slurred speech or facial droop. Patient denies any trauma. Patient did take some ibuprofen at home but without improvement in symptoms. Patient states that his chest pain is in the right chest. It is worse with range of motion of the right upper extremity. No prior history of stroke or mini stroke and no history of heart disease. Patient denies any cough or fever. PAST MEDICAL HISTORY: See Below PAST SURGICAL HISTORY: See Below SOCIAL HISTORY: See Below HOME MEDICATIONS: See Below ALLERGIES: See Below VITALS: See Below PHYSICAL EXAMINATION: GENERAL: NAD, non-toxic. Wearing glasses. EYE EXAM: Normal conjunctiva. PERRL, no anisocoria and EOM's grossly intact w/o pain. OROPHARYNX: Moist mucus membranes, grossly normal dentition. NECK: Trachea midline, no stridor. Supple, no nuchal rigidity, no adenopathy, non-tender. No signs of meningismus. FROM of the neck with good chin to chest and neck extension. Reproducible right-sided neck discomfort Chest: Reproducible right-sided chest wall pain without crepitus LUNGS: Clear to auscultation. Normal chest wall mechanics. HEART: NSR, no MRG. ABDOMEN: Abdomen soft, non-tender, no masses, no rebound or guarding. BACK: No CVA TTP. SKIN: No rashes and no bruising. UPPER EXTREMITIES: Upper extremities are grossly normal. LOWER EXTREMITIES: Grossly normal, no edema. NEURO EXAM: A&O x3, cranial nerves II-XII grossly intact, normal speech, moves all 4 extremities. 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 believed r/t the Froin's syndrome. treated at [facility]. HOSPITALIZED 2013 AND 2015 "BELIEVES RELATED TO GABAPENTIN NOT BROKEN DOWN" Surgical History History of colonoscopy (~09/2021) Family history of reaction to anesthesia BROTHER>NAUSEA Cyst REMOVED FROM BACK S/P lumbar and lumbosacral fusion by anterior technique 2003 [place] teeth removed S/P cervical spinal fusion GOOD ROM History of esophagogastroduodenoscopy (EGD) History of lumbar fusion TOTAL 5 LUMBAR SURGERIES (4 POSTERIOR/1 ANTERIOR>LAST LUMBAR) Family History Grandfather (Maternal) Diabetes Mother FHx: skin cancer Sinus disorder Grandmother (Maternal) FHx: stomach cancer Brother Asthma Sinus disorder Father Cardiac disorder Lumbar disc disease Aunt Diabetes Uncle Diabetes Grandmother Cancer Other Gallbladder disease Heart disease Hypertension Social History Smoking Status: Never smoker Second Hand Exposure: No; Do You Dip or Chew Tobacco: No; Hx Alcohol Use: Yes Alcohol type: beer Hx Substance Use: No Preferred Language: Serbian Communication Ability: Effective Visual Impairment: Limited Hearing Ability: Normal Critical Care Clinical Nurse Specialist Required: No Beliefs That Will Affect Care: None marital status: Current Living Situation: Spouse current occupational status: employed 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 Feels Safe at Home: Yes Assistive Devices: None Allergies Allergies Allergy/AdvReac Type Severity Reaction Status Date / Time hydromorphone Allergy Severe SHORTNESS Verified 09/05/23 20:26 OF BREATH Penicillins Allergy Severe ALLERGY TO Verified 09/05/23 20:26 [id number] doxycycline Allergy Intermediate BLISTERS/HI Verified 09/05/23 20:26 VES lamotrigine Allergy Intermediate tremors Verified 09/05/23 20:26 clindamycin AdvReac Intermediate NAUSEA Verified 09/05/23 20:26 eletriptan AdvReac Mild nausea/vomi Verified 09/05/23 20:26 ting Home Meds Home Medications Medication Instructions Recorded Confirmed sertraline 100 mg tablet (Zoloft) 100 mg PO QAM 02/10/18 09/05/23 trazodone 150 mg tablet 150 mg PO HS 09/03/21 09/05/23 amlodipine 5 mg tablet 5 mg PO QAM 09/05/23 09/05/23 gemfibrozil 600 mg tablet 1,200 mg PO QAM 09/05/23 09/05/23 ibuprofen 200 mg tablet 800 mg PO DIRECTED PRN Pain 09/05/23 09/05/23 montelukast 10 mg tablet 10 mg PO QPM 09/05/23 09/05/23 Previous Rx's Medication Instructions Recorded fremanezumab-vfrm 225 mg/1.5 mL 225 mg (1.5 mL) subcut MONTHLY 30 10/13/22 subcutaneous syringe (Oscilla Power #1.5 mL Syringe) rimegepant 75 mg disintegrating 75 mg PO PRN #8 tabs 10/13/22 tablet (Nurtec ODT) pantoprazole 40 mg tablet,delayed 40 mg PO QAM #90 tabs 01/21/23 release tadalafil 5 mg tablet 20 mg (4 x 5 mg) PO ONCE PRN 04/13/23 sexual activity #30 tabs Results & Data (ED) Vital Signs Vital Signs - 24 hr 09/05/23 18:07 09/05/23 19:07 09/05/23 20:00 Temperature 36.4 C L Temperature Source Temporal Artery Scan Pulse Rate 81 Pulse Rate [Apical] 74 56 L Respiratory Rate 19 29 H 22 Respiratory Effort / Characteristics Non-Labored Spontaneous Non-Labored Spontaneous Respiratory Depth Normal Normal Respiratory Pattern Regular Regular Blood Pressure 156/111 H Blood Pressure [Right Arm] 120/75 128/73 Blood Pressure Mean 126 Blood Pressure Mean [Right Arm] 90 91 Blood Pressure Position [Right Arm] Semi-fowlers Pulse Oximetry 97 96 98 Oxygen Delivery Method Room Air Room Air Room Air Sepsis Recent Fever Within 48 Hours No Sepsis New/Unexplained Change in Mental Status N/A Sepsis Action Taken by Nursing No Action Required 09/05/23 20:14 09/05/23 21:10 09/05/23 22:14 Temperature Temperature Source Pulse Rate 60 Pulse Rate [Apical] 64 Respiratory Rate 20 Respiratory Effort / Characteristics Non-Labored Spontaneous Respiratory Depth Normal Respiratory Pattern Regular Blood Pressure Blood Pressure [Right Arm] 128/82 144/106 H Blood Pressure Mean Blood Pressure Mean [Right Arm] 97 118 Blood Pressure Position [Right Arm] Semi-fowlers Pulse Oximetry 97 Oxygen Delivery Method Room Air Sepsis Recent Fever Within 48 Hours Sepsis New/Unexplained Change in Mental Status Sepsis Action Taken by [facility] Medications Current Medication List: was personally reviewed by me Laboratory Data Attestation: I reviewed the patient's lab results. 09/05/23 18:15 09/05/23 18:15 Lab Results 09/05/23 09/05/23 Range/Units 18:15 21:19 WBC 6.46 (4.8-10.8) K/ul RBC 5.35 (4.70-6.10) M/uL Hgb 16.1 (14.0-18.0) g/dl Hct 47.7 (42.0-52.0) % MCV 89.2 (80.0-100.0) fL MCH 30.1 (25.0-34.0) pg MCHC 33.8 (32.0-36.0) g/dL RDW Std Deviation 42.5 (36.4-46.3) fL RDW Coeff of Kacey 13.1 (11.5-14.5) % Plt Count 219 (130-400) K/uL MPV 9.0 L (9.4-12.4) fL Immature Gran % (Auto) 0.3 % Neut % (Auto) 61.4 % Lymph % (Auto) 27.1 % Millard % (Auto) 7.6 % Eos % (Auto) 3.1 % Baso % (Auto) 0.5 % Neut # (Auto) 3.97 (1.40-6.50) K/uL Lymph # (Auto) 1.75 (1.20-3.40) K/uL Millard # (Auto) 0.49 (0.11-0.59) K/uL Eos # (Auto) 0.20 (0.00-0.50) K/uL Baso # (Auto) 0.03 (0.00-0.20) K/uL Immature Gran # (Auto) 0.02 (0.01-0.20) K/uL PT 10.9 (9.0-12.0) Seconds INR 1.0 (0.9-1.1) APTT 28 (21-31) Seconds PTT Ratio 1.0 Sodium 136 (136-145) mmol/L Potassium 3.9 (3.5-5.1) mmol/L Chloride 104 (98-107) mmol/L Carbon Dioxide 23 (21-32) mmol/L Anion Gap 9 (3-11) BUN 21 (6-23) mg/dl Creatinine 1.21 (0.6-1.4) mg/dl Est Cr Clr Drug Dosing 90.9 ml/min Est GFR ( Amer) 78.7 ml/min Est GFR (Non-Af Amer) 67.9 ml/min BUN/Creatinine Ratio 17.4 (10-20) Glucose 116 H (70-99(Fasting)) mg/dl Calcium 9.8 (8.6-10.3) mg/dl Total Bilirubin 0.4 (0.2-1.0) mg/dl AST 13 (13-39) U/L ALT 19 (7-52) U/L Alkaline Phosphatase 87 (34-104) U/L Troponin I High Sens 9.3 1676.6 H* D (0-20) pg/ml Total Protein 8.2 (6.0-8.3) gm/dl Albumin 4.8 (3.4-5.0) gm/dl Globulin 3.4 (2.5-4.0) gm/dl Albumin/Globulin Ratio 1.4 (0.9-2) Administered Medications Heparin Sodium/Dextrose (Heparin Sodium/Dextrose) 25,000 units in 500 mls @ 20 mls/hr IV .Q24H FOR[facility]LY [facility], 1928–1983; Protocol Stop: 10/05/23 22:29 Last Admin: 09/05/23 22:47 Dose: 1,000 units/hr, 20 mls/hr Documented By: KELVIN Co-signed By: ISAEL Nitroglycerin (Nitroglycerin Sl 0.4 Mg/Tab Tab) 0.4 mg SL Q5M PRN PRN Reason: Chest Pain Stop: 10/05/23 18:49 Last Admin: 09/05/23 19:08 Dose: 0.4 mg Documented By: KELVIN Discontinued Medications Aspirin (Aspirin Chew 324 Mg) 324 mg PO NOW STA Stop: 09/05/23 18:51 Last Admin: 09/05/23 19:07 Dose: 324 mg Documented By: KELVIN Dexamethasone Sodium Phosphate (DexamethasonePf 10 Mg/Ml Vial) 10 mg IV NOW ONE Stop: 09/05/23 19:27 Last Admin: 09/05/23 19:45 Dose: 10 mg Documented By: KELVIN Fentanyl Citrate (Fentanyl Citrate Pf 100 Mcg/2 Ml Vial) 75 mcg IV NOW STA Stop: 09/05/23 20:29 Last Admin: 09/05/23 20:38 Dose: 75 mcg Documented By: KELVIN Heparin Sodium (Porcine) (Heparin Sod (Porcine) 1000 Unit/Ml) 4,000 units IV NOW ONE Stop: 09/05/23 22:31 Last Admin: 09/05/23 22:46 Dose: 4,000 units Documented By: KELVIN Co-signed By: ISAEL Heparin Sodium/Dextrose (Heparin Iv Adult Wt-Based Low-Dose W/ Initial Bolus Protocol) 1 each IV NOW STA; Protocol Stop: 09/05/23 22:01 Last Admin: 09/05/23 22:52 Dose: 1 each Documented By: KELVIN Magnesium Sulfate/Dextrose (Magnesium Sulfate / D5w) 1 gm in 100 mls @ 300 mls/hr IV NOW ONE Stop: 09/05/23 19:46 Last Infusion: 09/05/23 20:05 Dose: Infused Documented By: Admin: 09/05/23 19:45 Dose: 300 mls/hr Documented By: KELVIN Ketorolac Tromethamine (Ketorolac Tromethamine 15 Mg/Ml Vial) 10 mg IV NOW ONE Stop: 09/05/23 20:53 Last Admin: 09/05/23 21:09 Dose: 10 mg Documented By: KELVIN Morphine Sulfate (Morphine Sulfate 10 Mg/Ml Carp/Vial) 6 mg IV NOW STA Stop: 09/05/23 20:53 Last Admin: 09/05/23 21:09 Dose: 6 mg Documented By: KELVIN Nitroglycerin (Nitroglycerin 2% Ointment 30gm Tube) 0.5 inch EXT NOW ONE Stop: 09/05/23 22:11 Last Admin: 09/05/23 22:15 Dose: 0.5 inch Documented By: KELVIN Ondansetron HCl (Ondansetron Inj 2 Mg/Ml 2 Ml Vial) 4 mg IV NOW STA Stop: 09/05/23 19:27 Last Admin: 09/05/23 19:45 Dose: 4 mg Documented By: KELVIN Imaging Data Radiologist's Impression: Chest X-Ray 09/05/23 18:49 XR chest 1V portable HISTORY: chest pain COMPARISON: Chest CT 02/09/2023. Chest 08/31/2022. FINDINGS: No pneumothorax or no pleural effusions. Cervical spinal fusion hardware is again noted. The cardiac silhouette remains mildly enlarged. No new focal lung consolidations to suggest a pneumonia. No acute fractures. No evidence for pulmonary edema. Stable mild interstitial prominence. IMPRESSION: No significant change compared to the prior study. No acute process. ACT 112: Negative or not required by law. Electronically signed by: Emir Belle M.D. 09/05/2023 7:[address] 09/05/23 18:[address] DOSE: 547.75 mGy.cm HISTORY: Right-sided headache. TECHNIQUE: Multiaxial CT images of the head were performed without the use of intravenous contrast. Automated exposure control was utilized for this study. A dose lowering technique was utilized adhering to the principles of ALARA. Comparison: Head CT 05/12/2016. Findings: The paranasal sinuses and mastoid air cells are clear. The calvarium and skull base are intact. The ventricles and sulci are within normal limits. There is no mass, hematoma, midline shift, or acute infarct. Impression: No acute intracranial abnormality. ACT 112: Negative or not required by law. Electronically signed by: Emir Belle M.D. 09/05/2023 7:46 PM Discharge Plan Visit Data Chief Complaint: Pain (Generalized) Stated Complaint: HEADACHE, FACIAL/SHOULDER/ARM PAIN ED Provider: Willie Mix Discharge Problem: NSTEMI (non-ST elevated myocardial infarction), Chest pain, Headache Forms Stand Alone Forms: [employer] Prescriptions Prescriptions: No Action sertraline [Zoloft] 100 mg tablet 100 mg PO QAM pantoprazole 40 mg tablet,delayed release (DR/EC) 40 mg PO QAM Qty: 90 3RF Ajovy Syringe 225 mg/1.5 mL syringe 225 mg SQ MONTHLY 30 Days Qty: 1.5 11RF Rx Instructions: 19 of month Nurtec ODT 75 mg tablet,disintegrating 75 mg PO PRN Qty: 8 4RF tadalafil 5 mg tablet 20 mg PO ONCE PRN (Reason: sexual activity) Qty: 30 11RF trazodone 150 mg Tablet 150 mg PO HS amlodipine 5 mg tablet 5 mg PO QAM Rx Instructions: TAKE 1 TABLET DAILY FOR BLOOD PRESSURE gemfibrozil 600 mg tablet 1,200 mg PO QAM montelukast 10 mg tablet 10 mg PO QPM Rx Instructions: TAKE 1 TABLET DAILY IN THE EVENING ibuprofen 200 mg Tablet 800 mg PO DIRECTED PRN (Reason: Pain) Referrals Referrals: Nigel Chowdary MD [Primary Care Provider] - Discharge Problem: Chest pain Qualifiers: Chest pain type: unspecified Qualified Code(s): R07.9 - Chest pain, unspecified Headache Qualifiers: Headache type: unspecified Headache chronicity pattern: acute headache I ntractability: not intractable Qualified Code(s): R51.9 - Headache, unspecified
[2023-09-05 18:53] LABS: Albumin Globulin Ratio 1.4 (0.9-2); Albumin Level 4.8 gm/dl (3.4-5.0); BUN Creatinine Ratio 17.4 (10-20); Basophils # (auto) 0.03 K/uL (0.00-0.20); Basophils % (auto) 0.5 %; Bilirubin,Total 0.4 mg/dl (0.2-1.0); Calcium 9.8 mg/dl (8.6-10.3); Creatinine Clr Calc Pharmacy 90.9 ml/min; Eosinophils % (auto) 3.1 %; Est GFR (African American) 78.7 ml/min; Est GFR (Non-African American) 67.9 ml/min; Globulin 3.4 gm/dl (2.5-4.0); Hematocrit (blood only) 47.7 % (42.0-52.0); Hemoglobin 16.1 g/dl (14.0-18.0); Immature Granulocytes # (auto) 0.02 K/uL (0.01-0.20); Immature Granulocytes % (auto) 0.3 %; Lymphocytes # (auto) 1.75 K/uL (1.20-3.40); Lymphocytes % (auto) 27.1 %; Mean Corpuscular Hemoglobin 30.1 pg (25.0-34.0); Mean Corpuscular Hgb Conc 33.8 g/dL (32.0-36.0); Mean Corpuscular Volume 89.2 fL (80.0-100.0); Monocytes # (auto) 0.49 K/uL (0.11-0.59); Monocytes % (auto) 7.6 %; Neutrophils # (auto) 3.97 K/uL (1.40-6.50); Neutrophils % (auto) 61.4 %; Platelet Count 219 K/uL (130-400); Potassium 3.9 mmol/L (3.5-5.1); RDW Coefficient of Variation 13.1 % (11.5-14.5); RDW Standard Deviation 42.5 fL (36.4-46.3); Red Blood Count 5.35 M/uL (4.70-6.10); Total Protein 8.2 gm/dl (6.0-8.3); White Blood Count 6.46 K/ul (4.8-10.8)
[2023-09-05 19:07] LABS: Partial Thromboplastin Time 28 Seconds (21-31); Prothrombin Time 10.9 Seconds (9.0-12.0)
[2023-09-05] MEDS: ASPIRIN CHEW 324 MG PO STA (19:07)
[2023-09-05] MEDS: NITROGLYCERIN SL 0.4 MG/TAB TAB SL PRN (19:08)
--- NOTE | 2023-09-05 19:09 | XRay Report ---
XR chest 1V portable HISTORY: chest pain COMPARISON: Chest CT 02/09/2023. Chest 08/31/2022. FINDINGS: No pneumothorax or no pleural effusions. Cervical spinal fusion hardware is again noted. Th e cardiac silhouette remains mildly enlarged. No new focal lung consolidations to suggest a pneumonia . No acute fractures. No evidence for pulmonary edema. Stable mild interstitial prominence. IMPRESSION: No significant change compared to the prior study. No acute process. ACT 112: Negative or not required by law. Electronically signed by: Emir Belle M.D. 09/05/2023 7:07 PM
[2023-09-05 19:25] LABS: Troponin I High Sensitivity 9.3 pg/ml (0-20)
[2023-09-05] MEDS: dexAMETHasone**PF** 10 MG/ML VIAL IV ONE (19:45)
[2023-09-05] MEDS: ONDANSETRON INJ 2 MG/ML 2 ML VIAL IV STA (19:45)
[2023-09-05] MEDS: MAGNESIUM SULFATE / D5W 1 GM/100 ML BAG IV ONE (19:45)
--- NOTE | 2023-09-05 19:48 | CT Scan Report ---
HEAD CT NONCONTRAST CT DOSE: 547.75 mGy.cm HISTORY: Right-sided headache. TECHNIQUE: Multiaxial CT images of the head were performed without the use of intravenous contrast. A utomated exposure control was utilized for this study. A dose lowering technique was utilized adheri ng to the principles of ALARA. Comparison: Head CT 05/12/2016. Findings: The paranasal sinuses and mastoid air cells are clear. The calvarium and skull base are int act. The ventricles and sulci are within normal limits. There is no mass, hematoma, midline shift, or acute infarct. Impression: No acute intracranial abnormality. ACT 112: Negative or not required by law. Electronically signed by: Emir Belle M.D. 09/05/2023 7:46 PM
[2023-09-05] MEDS: fentaNYL citrate PF 100 MCG/2 ML VIAL IV STA (20:38)
[2023-09-05] MEDS: KETOROLAC TROMETHAMINE 15 MG/ML VIAL IV ONE (21:09)
[2023-09-05] MEDS: MoRPHine SULFATE 10 MG/ML CARP/VIAL IV STA (21:09)
[2023-09-05] MEDS: NITROGLYCERIN 2% OINTMENT 30GM TUBE EXT ONE (22:15)
[2023-09-05] MEDS ORDERED: HEPARIN SOD (PORCINE) 1000 UNIT/ML IV ONE (22:18)
--- NOTE | 2023-09-05 22:37 | History & Physical Report ---
Date of Service September 05, 2023 Assessment & Plan (1) NSTEMI (non-ST elevated myocardial infarction): (2) Depression: (3) Anxiety: (4) Migraine with aura: (5) Dyslipidemia: (6) Hypertension: (7) Obstructive sleep apnea: (8) Esophageal reflux: (9) Disc degeneration, lumbar: Plan Summary: Russel is a 53 M w/ PMH of depression, anxiety, Froins syndrome, migraines w/ aura, dyslipidemia, HTN, DILLAN, PTSD, GERD, and ED who presents for evaluation of right sided chest pain. ED Course: Morphine/Fentanyl, Aspirin 325, Nitroglycerin, Heparin NSTEMI | Chest Pain * Chest pains/headaches starting this evening, FH of CAD * EKG x 3 w/o acute ST or T wave changes * Troponin 9 on presentation, now 1676, repeat ordered * CXR unremarkable * CTA PE ordered, pending * Supplemental O2 PRN * Nitroglycerin PRN for chest pain, held d/t patient noting worsening sx s/p administration * Morphine 4 mg IV PRN for chest pain * Beta Flora: Start Metoprolol 25 mg Q12h * Statin allergic, continue home Gemfibrozil, Lipid profile ordered/A1c ordered * Antiplatelet: Received Aspirin 325 mg, start Aspirin 81 mg PO daily and Plavix 75 mg PO daily * Anticoagulation: Received Heparin bolus 60 u/kg in ED, continue 12 u/kg/hr for at least 48 hours * Maintain K > 4 /Mg > 2, repletion ordered * D/c NSAIDS * Cardiology consulted, anticipate cardiac cath 09/05 Chronic Conditions: * HTN: Amlodipine held while starting Metoprolol * HLD: continue Gemfibrozil * Depression/Anxiety/PTSD: continue Sertraline * Migraines w/ Aura: last dose Ajovy 08/24/23, using Nurtec PRN * DILLAN: wears mouth piece, unable to wear CPAP * GERD: continue Pantoprazole * ED: Hold Tadalafil * Insomnia: continue Trazodone HS Code Status:Full Diet:NPO IVF:None DVT PPx:Heparin CM: None Dispo: PCU/Tele History of Present Illness Chief Complaint: Chest Pain Primary Care Provider: Nigel Chowdary MD Russel is a 53 M w/ PMH of depression, anxiety, Froins syndrome, migraines w/ aur a, dyslipidemia, HTN, DILLAN, PTSD, GERD, and ED who presents for evaluation of right sided chest pain. Was out planting seedlings on his property, had cleaned everything up, and was watching son put stickers on his truck. Suddenly got a headache with pain radiating down right arm into his fingers. Originally thought he tweaked something digging. Went inside and laid down, but the pain continued to worsen until it was also in his chest. Last August had similar chest pains, but had pneumonia with parainfluenza at the time, no recent URI sx. No dyspnea. No edema, claudication, or orthopnea. 1 week ago had right sided chest pain while shooting guns, but it self resolved. Denies dyspnea on exertion. Hx of chronic migraines, takes monthly injectable (last dose 08/24/23). Migraines since 2013 from event where he was found unresponsive, was noted to be brain during the incident but revoed. It is suspected that the event was caused by poor metabolism of Gabapentin. Notes that this episode did not feel like a migraine, normally has eye watering and then has an aura. R sided headache came on suddenly today w/o typical symptoms and new chest discomfort. Has family history of CAD, no personal hx of heart procedures or CAD. BP has been elevated since last back surgery in 2003. Still taking Gemfibrozil for HLD, hx of adverse reaction to statin therapy. No recent stressors. Just had PCP visit Wednesday and received good report, no new medications or vaccinations at visit. Heart Alert Called 0115: Received notification from nursing that patient was experiencing increasing chest discomfort. Patient with significant troponin delta. Patient diaphoretic and clutching chest on arrival to room. Called Heart alert due to large trop delta, increasing chest pain/pressure and new dyspnea. Patient subsequently taken to [facility] w/ Dr. Ramirez. Allergies Allergy/AdvReac Type Severity Reaction Status Date / Time hydromorphone Allergy Severe SHORTNESS Verified 09/05/23 20:26 OF BREATH Penicillins Allergy Severe ALLERGY TO Verified 09/05/23 20:26 [id number] doxycycline Allergy Intermediate BLISTERS/HI Verified 09/05/23 20:26 VES lamotrigine Allergy Intermediate tremors Verified 09/05/23 20:26 clindamycin AdvReac Intermediate NAUSEA Verified 09/05/23 20:26 eletriptan AdvReac Mild nausea/vomi Verified 09/05/23 20:26 ting Home Medications Medication Instructions Recorded Confirmed Type sertraline 100 mg tablet (Zoloft) 100 mg PO QAM 02/10/18 09/05/23 History trazodone 150 mg tablet 150 mg PO HS 09/03/21 09/05/23 History fremanezumab-vfrm 225 mg/1.5 mL 225 mg (1.5 mL) subcut MONTHLY 30 10/13/22 09/05/23 Rx subcutaneous syringe ([employer] [facility] #1.5 mL Syringe) rimegepant 75 mg disintegrating 75 mg PO PRN #8 tabs 10/13/22 09/05/23 Rx tablet (Nurtec ODT) pantoprazole 40 mg tablet,delayed 40 mg PO QAM #90 tabs 01/21/23 09/05/23 Rx release tadalafil 5 mg tablet 20 mg (4 x 5 mg) PO ONCE PRN 04/13/23 09/05/23 Rx sexual activity #30 tabs amlodipine 5 mg tablet 5 mg PO QAM 09/05/23 09/05/23 History gemfibrozil 600 mg tablet 1,200 mg PO QAM 09/05/23 09/05/23 History ibuprofen 200 mg tablet 800 mg PO DIRECTED PRN Pain 09/05/23 09/05/23 History montelukast 10 mg tablet 10 mg PO QPM 09/05/23 09/05/23 History Past Med/Surg History Medical History NSTEMI (non-ST elevated myocardial infarction) Parainfluenza virus bronchitis 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 believed r/t the Froin's syndrome. treated at [facility]. HOSPITALIZED 2013 AND 2015 "BELIEVES RELATED TO GABAPENTIN NOT BROKEN DOWN" Surgical History History of colonoscopy (~09/2021) Family history of reaction to anesthesia BROTHER>NAUSEA Cyst REMOVED FROM BACK S/P lumbar and lumbosacral fusion by anterior technique 2003 Starke teeth removed S/P cervical spinal fusion GOOD ROM History of esophagogastroduodenoscopy (EGD) History of lumbar fusion TOTAL 5 LUMBAR SURGERIES (4 POSTERIOR/1 ANTERIOR>LAST LUMBAR) Family History Grandfather (Maternal) Diabetes Mother FHx: skin cancer Sinus disorder Grandmother (Maternal) FHx: stomach cancer Brother Asthma Sinus disorder Father Cardiac disorder Lumbar disc disease Aunt Diabetes Uncle Diabetes Grandmother Cancer Other Gallbladder disease Heart disease Hypertension Social History Smoking Status: Never smoker Second Hand Exposure: No; Do You Dip or Chew Tobacco: No; Hx Alcohol Use: No Hx Substance Use: No Preferred Language: Chinese Communication Ability: Effective Visual Impairment: Limited Hearing Ability: Normal Manager Php Required: No Beliefs That Will Affect Care: None marital status: Current Living Situation: Family current occupational status: 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 Feels Safe at Home: Yes Assistive Devices: Glasses Physical Exam Physical Exam: Gen: NAD, alert, interactive HEENT: Supple, no LAD, no thyromegaly, no JVD Resp:Non-labored, no wheezing/rhonchi/rales, CTAB CV:RRR, normal S1/S2, no M/R/G Abd: Soft, non-distended, no TTP, normoactive bowels, no masses Extr: 2+ dp bilaterally, no edema MSK: No acute TTP to chest, shoulder, or neck Skin: No rashes lesions or erythema Results & Data Results & Data Vital Signs (Past 12 Hours) Vital Signs Temp Pulse Pulse Resp BP BP Pulse Ox 09/05/23 22:14 64 20 144/106 H 97 09/05/23 21:10 128/82 09/05/23 20:14 60 09/05/23 20:00 56 L 22 128/73 98 09/05/23 19:07 74 29 H 120/75 96 09/05/23 18:07 36.4 C L 81 19 156/111 H 97 O2 Del Method 09/05/23 22:14 Room Air 09/05/23 21:10 09/05/23 20:14 09/05/23 20:00 Room Air 09/05/23 19:07 Room Air 09/05/23 18:07 Room Air Supervising Physician Co-Signing Physician Notes Attending addendum: I have physically seen this patient, have supervised the medical residents activities, and agree with the H&P unless as otherwise noted. Assessment and Plan: NSTEMI/hypertension- Strong family history of coronary disease and CHF Patient had worsening symptoms of chest pain, diaphoresis, and pain rating up into right side of neck His symptoms progressed despite being on heparin IV, having Nitropaste and having received morphine IV Patient was taken emergently to the [facility] by Dr. Ramirez, and then will be admitted to the PCU Started metoprolol to tartrate 100 mg p.o. every 12 hours Continuing gemfibrozil, as patient reportedly is allergic to statins Received aspirin 325 mg in ED, continue 81 mg every morning and Plavix 70 mg p.o. daily Heparin continue with her cardiology orders Holding amlodipine to allow blood pressure sufficient to place on metoprolol Depression/anxiety/PTSD/insomnia- Continue sertraline and trazodone DILLAN- Wears mouthpiece at home, unable to wear CPAP, feels he will do okay this evening If necessary wear oxygen at bedtime Resident Activity Tracking Resident Involvement: Resident Care Provided Care Provided: Adult Hospital Medicine (night)
[2023-09-05] MEDS: HEPARIN SOD (PORCINE) 1000 UNIT/ML IV ONE (22:46)
[2023-09-05] MEDS: HEPARIN SODIUM/DEXTROSE 25,000 UNITS/500 ML BAG IV SCH (22:47)
[2023-09-05] MEDS: Heparin IV Adult Wt-Based Low-Dose w/ INITIAL Bolus Protocol IV STA (22:52)
[2023-09-05] MEDS: MoRPHine SULFATE 4 MG/ML 1 ML CARP\\VIAL IV STA (23:26)
[2023-09-06] MEDS: OPTIRAY 320 125ml IV ONE (00:22)
--- NOTE | 2023-09-06 00:46 | CT Scan Report ---
Exam(s): CTA CHEST IV Amt: 115 ML OPTIRAY 320 EXAM: CT Angiography Chest With Intravenous Contrast CLINICAL HISTORY: Reason for exam: PE. TECHNIQUE: Axial computed tomographic angiography images of the chest with intravenous contrast. CTDI is 27 mGy and DLP is 867 mGy-cm. Automated exposure control was utilized for the study. A dose lowering technique was utilized adhering to the principles of ALARA. MIP reconstructed images were created and reviewed. COMPARISON: Chest CT 02/09/2023 FINDINGS: Pulmonary arteries: No pulmonary embolism. Aorta: No acute findings. Normal caliber. No dissection. Lungs: Poorly aerated lungs with atelectasis in all lobes. Pulmonary nodule in the anterior right upper lobe measuring 9 mm (series 2 image 81) which is new from the prior. Pleural space: Unremarkable. Heart: Unremarkable. Bones/joints: No acute fracture. Soft tissues: Unremarkable. Lymph nodes: Unremarkable. IMPRESSION: 1. No pulmonary embolism. 2. Poorly aerated lungs with atelectasis in all lobes. Cannot exclude a component of atypical infection. 3. Pulmonary nodule in the anterior right upper lobe measuring 9 mm (series 2 image 81) which is new from the prior. May be infectious or inflammatory. Consider follow-up CT in 3-6 months to reevaluate. Electronically signed by: Carlos Vazquez MD 09/06/23 00:45 AM
[2023-09-06] MEDS: SODIUM CHLORIDE 0.9% 500 ML IV ONE (01:28)
[2023-09-06] MEDS: NITROGLYCERIN SL 0.4 MG/TAB TAB SL STA (01:36)
--- NOTE | 2023-09-06 01:58 | Pre Anesthesia Assessment ---
Date of Service September 06, 2023 Pre Sedation Assessment Vital Signs Temp Pulse Pulse Resp BP BP Pulse Ox 09/06/23 01:34 74 19 116/73 09/06/23 01:21 81 28 H 161/87 H 09/06/23 00:58 99 H 29 H 130/89 97 09/06/23 00:26 69 21 129/75 91 09/06/23 00:00 71 19 129/75 93 09/05/23 23:35 72 09/05/23 23:09 64 20 135/88 93 09/05/23 22:14 64 20 144/106 H 97 09/05/23 21:10 128/82 09/05/23 20:14 60 09/05/23 20:00 56 L 22 128/73 98 09/05/23 19:07 74 29 H 120/75 96 09/05/23 18:07 36.4 C L 81 19 156/111 H 97 O2 Del Method 09/06/23 01:34 09/06/23 01:21 09/06/23 00:58 09/06/23 00:26 09/06/23 00:00 Room Air 09/05/23 23:35 09/05/23 23:09 09/05/23 22:14 Room Air 09/05/23 21:10 09/05/23 20:14 09/05/23 20:00 Room Air 09/05/23 19:07 Room Air 09/05/23 18:07 Room Air Cardiovascular + regular rate and + regular rhythm Respiratory normal respiratory effort, lungs clear to auscultation Pre-Sedation Airway Assessment Smoking Status: Never smoker Class II Class II Notes The planned sedation has been discussed with the patient. Informed Consent was obtained. I have identified the patient, determined the appropriateness of sedation and have assessed the patient immediately prior to the procedure. All medicine(s) and interventions are by my order.
[2023-09-06] MEDS: diphenhydrAMINE 50 MG/ML VIAL ONE (02:37)
[2023-09-06] MEDS: MIDAZOLAM HCL 1 MG/ML 2ML VIAL ONE (02:37)
[2023-09-06] MEDS: NITROGLYCERIN/D5W 100MCG/ML 20ML SYR ONE (02:37)
[2023-09-06] MEDS: niCARdipine HCL INJ 2.5 MG/ML 10 ML AMP ONE (02:37)
[2023-09-06] MEDS: fentaNYL citrate PF 100 MCG/2 ML VIAL ONE (02:37)
[2023-09-06] MEDS: OPTIRAY 350 ONE (02:44)
[2023-09-06] MEDS: TICAGRELOR 90 MG TAB ONE (02:44)
[2023-09-06] MEDS ORDERED: ACETAMINOPHEN 500 MG TAB PO PRN (03:15)
[2023-09-06] MEDS ORDERED: ONDANSETRON INJ 2 MG/ML 2 ML VIAL IV PRN (03:15)
--- NOTE | 2023-09-06 03:21 | Cardiac Catheterization ---
[facility] Data: [facility] Cardiac Status Clinical evaluation leading to the procedure CAD Presenation: Non STEMI Coronary Anatomy Left Main (% Stenosis): Normal LAD (% Stenosis): Proximal (50-60) and Mid (99) D1 (% Stenosis): Normal Circumflex (% Stenosis): Normal RCA (% Stenosis): Proximal (20-30), Mid (20-30) and Distal (20-30) R PDA (% Stenosis): Ostial (100) R PL1 (% Stenosis): Normal (Mild luminal irregularities) Diagnostic Physicians Name: Jaziel Ramirez MD Closure Device Recommendations: Medical Therapy and/or Counseling and PCI without planned CABG Lesion Segment Name: Mid LAD Stenosis Prior to Rx (%): 99 Pre-Procedure ELENA Flow: 2 Cardiac Cath Procedure Full Procedure Date September 06, 2023 Pre-Procedure Diagnosis Pre-Procedure Diagnosis: Non STEMI AUC Score AUC Score: 9 Post-Procedure Diagnosis Post-Procedure Diagnosis: Successful PCI Procedure(s) Performed Procedure(s) Performed: Coronary Angiography, Left Heart Cath, PTCA and Drug Eluting Stent Tree Feller Operator Jaziel Ramirez MD Estimated Blood Loss Estimated Blood Loss: None (20) Summary of Findings Multivessel CAD. Culprit is mid LAD 99% hazy lesion Successful PCI of the mid to distal LAD with overlapping 2.75 x 18 and 2.5 x 30 drug-eluting stents postdilated with a 2.75 NC balloon proximally and passed the overlapping segment. Stenosis reduced from 99% to 0% Normal left-sided filling pressure No aortic stenosis Recommendations Dual antiplatelet therapy for target of at least 1 year given non-STEMI presentation Maximize secondary prevention medications Follow-up with primary family and consumer sciences professor Findings Left main: Large artery the divides into an LAD and circumflex. It is angiographically normal LAD: Large artery takeoff. Gives rise to a high takeoff medium to large first diagonal followed by a small second diagonal and small third diagonal. It continues in the anterior interventricular groove and supplies the true apex. The first part of the mid vessel just after the first septal has a 50 to 60% eccentric lesion. Further down in the mid vessel around the takeoff of the third diagonal there is a 99% hazy stenosis. Beyond that there is an area of 60 to 70%. The apical LAD has mild/moderate diffuse disease. The large high takeoff first diagonal has mild diffuse disease. The second small diagonal has severe disease proximally but is not a target for intervention. The third diagonal coming off of the stented segment is very small and has diffuse disease. The culprit lesion is treated with overlapping 2.75 x 18 and 2.5 x 30 drug-eluting stents and postdilated with a 2.75 NC balloon to 0% residual. Circumflex: Medium to large artery takeoff. Gives rise to a medium sized first OM which branches distally and then continues to give a very small second terminal branch. There is no significant angiographic disease. RCA: Large artery which supplies a medium to large PL. There is evidence of an occluded PDA that fills via very faint right to right collaterals and modest left to right collaterals. The AV groove RCA has mild diffuse disease up to 30%. The PDA appears to be 100% occluded at the ostium. LVEDP: 12 mmHg No gradient across aortic valve by pullback Procedure details This gentleman was brought to the [facility] emergently. The risk and benefits of the procedure were described in detail. These included but were not limited to stroke heart attack and damage requiring emergency surgery. He understood these risks and informed consent was signed and witnessed. Prior prior to starting the patient and site were verified. He was monitored with [id number] contact and telemetry monitoring throughout the entirety of the case. I gave 2 mg of Versed, 50 mcg of fentanyl initially for moderate sedation. 2 mL of 1% lidocaine was given the right wrist for local anesthesia. Access to the right radial artery was made using modified center technique and a micropuncture kit. Eventually a 56 Telugu slender sheath was advanced over the wire. All catheter exchanges were made over wire. Next I advanced a JL 3 5 and uses to engage the left coronary. This was exchanged for a JR4. The JR4 was used for entering the LV, measuring LV pressure, and aortic pullback. Next was used to engage the RCA. The stage elected to perform PCI on the LAD. Additional heparin is given. ACT was monitored. The guide catheter was an EBU 3.5. The wire was a run-through. The lesion was predilated with a 2.0 x 12 compliant balloon up to 8 margy throughout the length of the lesion. The lesion was then stented with a 2.5 x 30 drug-eluting stent deployed at 13 margy for 15 seconds. The more proximal lesion was then treated with a 2.75 x 18 drug-eluting stent overlapping the previously placed stent and deployed at 14 margy for 15 seconds.. The stent balloon was used to post dilate the overlap section. I then took a 2.75 x 15 NC balloon. This was used to dilate the overlap segments up to 12 margy. More proximally it was inflated to 20 margy. Final angiograms with and without the wire demonstrate good stent apposition with no evidence of dissection or perforation. He tolerated the procedure well with no immediate complications noted. He was shown the results of the procedure. Hemodynamics Rest Ao:: 95/70 Final Ao: 122/72 LV: 130/0, LVEDP 12 mmHg Recommendations Recommendations: Medical Therapy and/or Counseling and PCI without planned CABG Radiation Exposure (mGy) 11.8 minutes and 2254 mGy Contrast (mls) 131 mL Procedural Complication(s) None I attest to the content of the Intraoperative Record and any orders documented therein. Any exceptions are noted below. PG Care Time/CCT Total # of Minutes Spent Total Time Spent with Patient: Total time spent is greater than 50% in coordination of care (as documented) at patient's floor/unit and/or counseling patient:
[2023-09-06] MEDS: HEPARIN (PORCINE) 1000 UNIT/ML 10 ML (CATH LAB USE ONLY) ONE (03:25)
[2023-09-06] MEDS: SODIUM CHLORIDE 0.9% 1,000 ML IV SCH (03:25)
[2023-09-06] MEDS: POTASSIUM CHLORIDE CRTAB 20 MEQ TABCR PO STA (03:33)
[2023-09-06] MEDS: MoRPHine SULFATE 4 MG/ML 1 ML CARP\\VIAL IV PRN (04:41)
[2023-09-06 06:57] LABS: Chol HDL Ratio 3.4 (0-5)
[2023-09-06 07:25] LABS: ANTI-Xa, UFH(UnfractionatedHep < 0.10 IU/ml (0.3-0.7)
[2023-09-06 07:45] LABS: Estimated Average Glucose 105 mg/dl; Hemoglobin A1C 5.3 % (4.5-5.6)
[2023-09-06 08:02] LABS: Hematocrit (blood only) 45.5 % (42.0-52.0); Hemoglobin 15.1 g/dl (14.0-18.0); Mean Corpuscular Hemoglobin 29.5 pg (25.0-34.0); Mean Corpuscular Hgb Conc 33.2 g/dL (32.0-36.0); Mean Corpuscular Volume 88.9 fL (80.0-100.0); Mean Platelet Volume 9.1 fL (9.4-12.4); Platelet Count 214 K/uL (130-400); RDW Standard Deviation 42.2 fL (36.4-46.3); Red Blood Count 5.12 M/uL (4.70-6.10); White Blood Count 7.37 K/ul (4.8-10.8)
[2023-09-06 08:12] LABS: Albumin Level 4.4 gm/dl (3.4-5.0); Bilirubin,Total 0.4 mg/dl (0.2-1.0); Calcium 9.3 mg/dl (8.6-10.3); Magnesium 2.1 mg/dl (1.7-2.4); Potassium 4.5 mmol/L (3.5-5.1)
[2023-09-06 08:22] LABS: Albumin Globulin Ratio 1.4 (0.9-2); BUN Creatinine Ratio 20.7 (10-20); Creatinine Clr Calc Pharmacy 126.4 ml/min; Est GFR (African American) 114.2 ml/min; Est GFR (Non-African American) 98.5 ml/min; Globulin 3.1 gm/dl (2.5-4.0); Total Protein 7.5 gm/dl (6.0-8.3)
--- NOTE | 2023-09-06 08:30 | Hospitalist Progress Note ---
"Date of Service September 06, 2023 Assessment & Plan (1) NSTEMI (non-ST elevated myocardial infarction): Plan: NSTEMI | Chest Pain * EKG x 3 w/o acute ST or T wave changes * Troponin 9 -> 1676->2568 * CTA PE negative for PE LHC shows 99% mid lad S/P CHRISTIANA with good resolution of lesion -> DAPT * Beta Flora: Start Metoprolol 25 mg Q12h * Statin allergic, continue home Gemfibrozil, Lipid profile total cholesterol 156 LDL 84 HDL 46 triglycerides 130 * A1c normal at 5.3 Plan Chronic Conditions: * HLD: continue Gemfibrozil * Depression/Anxiety/PTSD: continue Sertraline * Migraines w/ Aura: last dose Ajovy 08/24/23, using Nurtec PRN * DILLAN: wears mouth piece, unable to wear CPAP * GERD: continue Pantoprazole * Insomnia: continue Trazodone HS Code Status:Full Admission and Anticipated Discharge Date Admission Date: September 06, 2023 Subjective Patient was seen postprocedure complete resolution of symptoms. Catheterization access site is clean dry and intact with good distal capillary refill and sensation patient was also seen by cardiology patient states he has been intolerant of statins in the past cardiology is still trying to add statins to his regiment Physical Exam Physical Exam: Card exam is regular no murmur Lungs are clear no wheezes or crackles And examination is normal for postprocedural radial artery cannulization Results & Data Results & Data Vital Signs (Past 12 Hours) Vital Signs Temp Pulse Pulse Resp BP BP BP 09/06/23 08:19 98.2 F 66 18 134/77 09/06/23 06:40 89 18 121/74 09/06/23 05:38 70 18 133/78 09/06/23 04:56 72 127/75 09/06/23 04:40 78 136/76 09/06/23 04:30 60 144/90 H 09/06/23 04:10 68 122/70 09/06/23 03:55 61 135/70 09/06/23 03:30 74 125/83 09/06/23 03:17 98.2 F 73 18 146/76 H 09/06/23 01:42 74 13 130/77 09/06/23 01:34 74 19 116/73 09/06/23 01:21 81 28 H 161/87 H 09/06/23 00:58 99 H 29 H 130/89 09/06/23 00:26 69 21 129/75 09/06/23 00:00 71 19 129/75 09/05/23 23:35 72 09/05/23 23:09 64 20 135/88 09/05/23 22:14 64 20 144/106 H 09/05/23 21:10 128/82 Pulse Ox O2 Del Method 09/06/23 08:19 95 Room Air 09/06/23 06:40 97 Room Air 09/06/23 05:38 96 Room Air 09/06/23 04:56 09/06/23 04:40 09/06/23 04:30 09/06/23 04:10 96 Room Air 09/06/23 03:55 09/06/23 03:30 95 Room Air 09/06/23 03:17 95 Room Air 09/06/23 01:42 95 Room Air 09/06/23 01:34 09/06/23 01:21 09/06/23 00:58 97 09/06/23 00:26 91 09/06/23 00:00 93 Room Air 09/05/23 23:35 09/05/23 23:09 93 09/05/23 22:14 97 Room Air 09/05/23 21:10 Laboratory Results Reviewed CBC reviewed chemistry reviewed troponin PG Care Time/CCT Total # of Minutes Spent Total Time Spent with Patient: Total time spent is greater than 50% in coordination of care (as documented) at patient's floor/unit and/or counseling patient: Coding Level of Care Code 81217 SUB INP/OBS CARE MIN Diagnoses NSTEMI (non-ST elevated myocardial infarction) I21.4"
[2023-09-06] MEDS ORDERED: CLOPIDOGREL BISULFATE 75 MG TAB PO SCH (09:00)
[2023-09-06] MEDS ORDERED: ASPIRIN 81 MG CHEW PO SCH (09:00)
[2023-09-06] MEDS: METOPROLOL TARTRATE 25 MG TAB PO SCH (09:29)
[2023-09-06] MEDS: SERTRALINE HCL 100 MG TABLET PO SCH (09:29)
[2023-09-06] MEDS: gemfibroziL 600 MG TAB PO SCH (09:29)
[2023-09-06] MEDS: PANTOprazole 40 MG TAB PO SCH (09:29)
[2023-09-06] MEDS: ASPIRIN 81 MG ECTAB PO SCH (09:29)
[2023-09-06] MEDS ORDERED: ATORVASTATIN 20 MG TAB PO SCH (10:35)
[2023-09-06] MEDS: ATORVASTATIN 10 MG TAB PO SCH (11:47)
--- NOTE | 2023-09-06 13:06 | Cardiology Consultation ---
Date of Consultation September 06, 2023 Assessment & Plan (1) NSTEMI (non-ST elevated myocardial infarction): Secondary to thrombotic occlusion of LAD. Peak troponin 2568. He will remain on dual antiplatelet therapy with aspirin 81 mg daily and ticagrelor 90 mg p.o. twice daily for up to 1 to 2 years. We need to obtain an echocardiogram to see if there is been any significant change in his baseline LVEF, new wall motion, etc. Further recommendations pending results. (2) Dyslipidemia: Patient is high risk. High intensity statin therapy is recommended. Last triglycerides were 130 mg/dL, total cholesterol 156 mg/dL, LDL cholesterol 84 mg/dL, and HDL 46 mg/dL. He is on gemfibrozil which makes addition of a statin more complicated. We will change him to fenofibrate and initiate low-dose a atorvastatin. Titrate up as tolerated over weeks. (3) Hypertension: In the hospital his blood pressure has been at or slightly above target. Currently on metoprolol to tartrate 25 mg p.o. twice daily. Adding losartan 25 mg daily for its myocardial and nephro protective effects. Holding amlodipine but we could consider restarting this if his blood pressure needs it after combination of metoprolol and losartan. Plan I have ordered an echocardiogram and additional medical management based on results. Anticipate he will be hospitalized for 48 hours post RI as standard of care. We will contact cardiac rehab. After we have titrated his medical regimen he should be appropriate for discharge by 48 hours. He will need to follow-up with Dr. Carty within 2 to 4 weeks of discharge. History of Present Illness Reason for Consultation: Non-ST elevation RI with PCI Attending Physician: Christopher Amaya MD History of Present Illness 53-year-old male with chronic pain and associated opioid use came to the emergency department for chest pain and headache. Initial EKG did not demonstrate evidence of myocardial ischemia but the patient continued with symptoms and had a positive troponin. A "heart alert" was called and the patient was subsequently taken to the [facility] by Dr. Ramirez. There, he underwent diagnostic coronary angiography and PCI of the LAD with implantation of 2 overlapped drug-eluting stents. He was then admitted and I was asked to see him to help in his cardiovascular management. Patient's had no further chest discomfort. Denies shortness of breath, syncope, near syncope, orthopnea, PND, racing heartbeat, palpitations, or edema. Pertinent comorbid disease includes hypertension, dyslipidemia, and obstructive sleep apnea. He voices no other complaints or concerns at this time. He is see n in his room while he is eating his breakfast. He does request that as an outpatient he follow with Dr. Carty in the cardiology office as the patient's father also follows with Dr. Carty. Cardiac catheterization 09/05/2023: LMT-normal LAD-proximal 50 to 60%, mid to distal 99%. D1 normal. LCx-normal RCA-proximal 20 to 30%, mid 20 to 30%, distal 20 to 30%. 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 Good angiographic results. Echocardiogram 09/01/2022: Mild LVH. EF 55 to 60% Otherwise normal echo Allergies Allergy/AdvReac Type Severity Reaction Status Date / Time hydromorphone Allergy Severe SHORTNESS Verified 09/05/23 20:26 OF BREATH Penicillins Allergy Severe ALLERGY TO Verified 09/05/23 20:26 [id number] doxycycline Allergy Intermediate BLISTERS/HI Verified 09/05/23 20:26 VES lamotrigine Allergy Intermediate tremors Verified 09/05/23 20:26 clindamycin AdvReac Intermediate NAUSEA Verified 09/05/23 20:26 eletriptan AdvReac Mild nausea/vomi Verified 09/05/23 20:26 ting Home Medications Medication Instructions Recorded Confirmed Type sertraline 100 mg tablet (Zoloft) 100 mg PO QAM 02/10/18 09/05/23 History trazodone 150 mg tablet 150 mg PO HS 09/03/21 09/05/23 History fremanezumab-vfrm 225 mg/1.5 mL 225 mg (1.5 mL) subcut MONTHLY 30 10/13/22 09/05/23 Rx subcutaneous syringe ([employer] days #1.5 mL Syringe) rimegepant 75 mg disintegrating 75 mg PO PRN #8 tabs 10/13/22 09/05/23 Rx tablet (Nurtec ODT) pantoprazole 40 mg tablet,delayed 40 mg PO QAM #90 tabs 08/17/23 03/31/24 Rx release tadalafil 5 mg tablet 20 mg (4 x 5 mg) PO ONCE PRN 04/13/23 09/05/23 Rx sexual activity #30 tabs amlodipine 5 mg tablet 5 mg PO QAM 09/05/23 09/05/23 History gemfibrozil 600 mg tablet 1,200 mg PO QAM 09/05/23 09/05/23 History ibuprofen 200 mg tablet 800 mg PO DIRECTED PRN Pain 09/05/23 09/05/23 History montelukast 10 mg tablet 10 mg PO QPM 09/05/23 09/05/23 History Patient History Medical History NSTEMI (non-ST elevated myocardial infarction) Parainfluenza virus bronchitis 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 believed r/t the Froin's syndrome. treated at [facility]. HOSPITALIZED 2013 AND 2016 "BELIEVES RELATED TO GABAPENTIN NOT BROKEN DOWN" Surgical History History of colonoscopy (~09/2021) Family history of reaction to anesthesia BROTHER>NAUSEA Cyst REMOVED FROM BACK S/P lumbar and lumbosacral fusion by anterior technique 2003 [place] teeth removed S/P cervical spinal fusion GOOD ROM History of esophagogastroduodenoscopy (EGD) History of lumbar fusion TOTAL 5 LUMBAR SURGERIES (4 POSTERIOR/1 ANTERIOR>LAST LUMBAR) Family History Grandfather (Maternal) Diabetes Mother FHx: skin cancer Sinus disorder Grandmother (Maternal) FHx: stomach cancer Brother Asthma Sinus disorder Father Cardiac disorder Lumbar disc disease Aunt Diabetes Uncle Diabetes Grandmother Cancer Other Gallbladder disease Heart disease Hypertension Social History Smoking Status: Never smoker Second Hand Exposure: No; Do You Dip or Chew Tobacco: No; Hx Alcohol Use: No Hx Substance Use: No Preferred Language: Greenlandic Communication Ability: Effective Visual Impairment: Limited Hearing Ability: Normal Pill Machine Operator Required: No Beliefs That Will Affect Care: None marital status: Current Living Situation: Family current occupational status: employed 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 Sclera are anicteric. ENMT: Oral mucosa is pink moist and intact Neck: No JVD Respiratory: Clear to auscultation bilaterally. No wheezing, rhonchi, or rales. Cardiovascular: Regular rate and rhythm. S4 gallop. Do not appreciate any rubs or murmurs. No edema. Musculoskeletal: no cyanosis or clubbing, extremities motor strength 5/5 Neurologic: Cognition intact. Speech fluent. No focal deficits. No tremor. Psychiatric: A+Ox3, euthymic affect Results & Data Vital Signs (Past 12 Hours) Vital Signs Temp Pulse Pulse Resp BP BP BP 09/06/23 11:34 36.5 C 55 L 18 128/78 09/06/23 08:19 36.8 C 66 18 134/77 09/06/23 06:40 89 18 121/74 09/06/23 05:38 70 18 133/78 09/06/23 04:56 72 127/75 09/06/23 04:40 78 136/76 09/06/23 04:30 60 144/90 H 09/06/23 04:10 68 122/70 09/06/23 03:55 61 135/70 09/06/23 03:30 74 125/83 09/06/23 03:17 36.8 C 73 18 146/76 H 09/06/23 01:42 74 13 130/77 09/06/23 01:34 74 19 116/73 09/06/23 01:21 81 28 H 161/87 H Pulse Ox O2 Del Method 09/06/23 11:34 96 Room Air 09/06/23 08:19 95 Room Air 09/06/23 06:40 97 Room Air 09/06/23 05:38 96 Room Air 09/06/23 04:56 09/06/23 04:40 09/06/23 04:30 09/06/23 04:10 96 Room Air 09/06/23 03:55 09/06/23 03:30 95 Room Air 09/06/23 03:17 95 Room Air 09/06/23 01:42 95 Room Air 09/06/23 01:34 09/06/23 01:21 PG Care Time/CCT Total # of Minutes Spent Total Time Spent with Patient: Total time spent is greater than 50% in coordination of care (as documented) at patient's floor/unit and/or counseling patient: Coding Level of Care Code 59692 IN/OBS CONSULT LVL 4,60M Diagnoses NSTEMI (non-ST elevated myocardial infarction) I21.4 Dyslipidemia E78.5 Hypertension I10
--- NOTE | 2023-09-06 13:47 | XCELERA ---
[id number]
--- NOTE | 2023-09-06 20:34 | Billing Data ---
Date of Service September 06, 2023 Coding Level of Care Code 25387 INT INP/OBS CARE
[2023-09-06] MEDS: MONTELUKAST SODIUM 10 MG TABLET PO SCH (20:48)
[2023-09-06] MEDS: traZODone HCL 50 MG TAB PO SCH (20:48)
[2023-09-06] MEDS: TICAGRELOR 90 MG TAB PO SCH (20:49)
[2023-09-07] MEDS: LOSARTAN POTASSIUM 25 MG TAB PO SCH (08:12)
[2023-09-07] MEDS: FENOFIBRATE NANOCRYSTALLIZED 145 MG TABLET PO SCH (08:12)
--- NOTE | 2023-09-07 14:58 | Discharge Summary ---
"Date of Service September 07, 2023 Admission HPI Per Admitting Provider Russel is a 53 M w/ PMH of depression, anxiety, Froins syndrome, migraines w/ aura, dyslipidemia, HTN, DILLAN, PTSD, GERD, and ED who presents for evaluation of right sided chest pain. Was out planting seedlings on his property, had cleaned everything up, and was watching son put stickers on his truck. Suddenly got a headache with pain radiating down right arm into his fingers. Originally thought he tweaked some thing digging. Went inside and laid down, but the pain continued to worsen until it was also in his chest. Last August had similar chest pains, but had pneumonia with parainfluenza at the time, no recent URI sx. No dyspnea. No edema, claudication, or orthopnea. 1 week ago had right sided chest pain while shooting guns, but it self resolved. Denies dyspnea on exertion. Hx of chronic migraines, takes monthly injectable (last dose 08/24/23). Migraines since 2013 from event where he was found unresponsive, was noted to be brain during the incident but revoed. It is suspected that the event was caused by poor metabolism of Gabapentin. Notes that this episode did not feel like a migraine, normally has eye watering and then has an aura. R sided headache came on suddenly today w/o typical symptoms and new chest discomfort. Has family history of CAD, no personal hx of heart procedures or CAD. BP has been elevated since last back surgery in 2003. Still taking Gemfibrozil for HLD, hx of adverse reaction to statin therapy. No recent stressors. Just had PCP visit Wednesday and received good report, no new medications or vaccinations at visit. Heart Alert Called 0115: Received notification from nursing that patient was experiencing increasing chest discomfort. Patient with significant troponin delta. Patient diaphoretic and clutching chest on arrival to room. Called Heart alert due to large trop delta, increasing chest pain/pressure and new dyspnea. Patient subsequently taken to cathead worker w/ Dr. Ramirez. Principal Diagnosis NStemi with CHRISTIANA to LAD Discharge Exam awake and alert cardiac exam is regular lungs are clear cath site is c/d/i Discharge Data Allergies Allergy/AdvReac Type Severity Reaction Status Date / Time hydromorphone Allergy Severe SHORTNESS Verified 09/05/23 20:26 OF BREATH Penicillins Allergy Severe ALLERGY TO Verified 09/05/23 20:26 [id number] doxycycline Allergy Intermediate BLISTERS/HI Verified 09/05/23 20:26 VES lamotrigine Allergy Intermediate tremors Verified 09/05/23 20:26 clindamycin AdvReac Intermediate NAUSEA Verified 09/05/23 20:26 eletriptan AdvReac Mild nausea/vomi Verified 09/05/23 20:26 ting Consultations 09/05/23 22:09 ED Decision to Admit Stat 09/06/23 02:57 Consult Hospitalist Routine 09/06/23 03:15 Consult Cardiology Routine 09/06/23 13:20 Consult Cardiac Rehabilitation Routine Procedures Performed Operation Date: 09/06/23 01:30 Actual Procedures p Cineradiography w/Routine Exam - Jaziel Ramirez MD s Cath, Left with Cors and Vent - Jaziel Ramirez MD s Drug Eluting Stent SGl Vessel - Jaziel Ramirez MD Ordered Studies Chest X-Ray 09/05/23 18:49 XR chest 1V portable HISTORY: chest pain COMPARISON: Chest CT 02/09/2023. Chest 08/31/2022. FINDINGS: No pneumothorax or no pleural effusions. Cervical spinal fusion hardware is again noted. The cardiac silhouette remains mildly enlarged. No new focal lung consolidations to suggest a pneumonia. No acute fractures. No evidence for pulmonary edema. Stable mild interstitial prominence. IMPRESSION: No significant change compared to the prior study. No acute process. ACT 112: Negative or not required by law. Electronically signed by: Emir Belle M.D. 09/05/2023 7:[address] 09/05/23 18:[address] DOSE: 547.75 mGy.cm HISTORY: Right-sided headache. TECHNIQUE: Multiaxial CT images of the head were performed without the use of intravenous contrast. Automated exposure control was utilized for this study. A dose lowering technique was utilized adhering to the principles of ALARA. Comparison: Head CT 05/12/2016. Findings: The paranasal sinuses and mastoid air cells are clear. The calvarium and skull base are intact. The ventricles and sulci are within normal limits. There is no mass, hematoma, midline shift, or acute infarct. Impression: No acute intracranial abnormality. ACT 112: Negative or not required by law. Electronically signed by: Emir Belle M.D. 09/05/2023 7:46 PM Chest CTA 09/05/23 23:49 Exam(s): CTA CHEST IV Amt: 115 ML OPTIRAY 320 EXAM: CT Angiography Chest With Intravenous Contrast CLINICAL HISTORY: Reason for exam: PE. TECHNIQUE: Axial computed tomographic angiography images of the chest with intravenous contrast. CTDI is 27 mGy and DLP is 867 mGy-cm. Automated exposure control was utilized for the study. A dose lowering technique was utilized adhering to the principles of ALARA. MIP reconstructed images were created and reviewed. COMPARISON: Chest CT 02/09/2023 FINDINGS: Pulmonary arteries: No pulmonary embolism. Aorta: No acute findings. Normal caliber. No dissection. Lungs: Poorly aerated lungs with atelectasis in all lobes. Pulmonary nodule in the anterior right upper lobe measuring 9 mm (series 2 image 81) which is new from the prior. Pleural space: Unremarkable. Heart: Unremarkable. Bones/joints: No acute fracture. Soft tissues: Unremarkable. Lymph nodes: Unremarkable. IMPRESSION: 1. No pulmonary embolism. 2. Poorly aerated lungs with atelectasis in all lobes. Cannot exclude a component of atypical infection. 3. Pulmonary nodule in the anterior right upper lobe measuring 9 mm (series 2 image 81) which is new from the prior. May be infectious or inflammatory. Consider follow-up CT in 3-6 months to reevaluate. Electronically signed by: Carlos Vazquez MD 09/06/23 00:45 AM ly Stat Hospital Course (1) NSTEMI (non-ST elevated myocardial infarction): NSTEMI | Chest Pain * EKG x 3 w/o acute ST or T wave changes * Troponin 9 -> 1676->2568 * CTA PE negative for PE LHC shows 99% mid lad S/P CHRISTIANA with good resolution of lesion -> aspirin and Brilinta Brilinta dose was checked with pharmacy it is covered * Beta Flora: Start Metoprolol 25 mg Q12h * Previous statin and sensitivity will start low-dose atorvastatin 10 change gemfibrozil to fenofibrate. Discussion regarding previous statin sensitivity and they requested to try to tolerate statin at this time patient understands * lipid profile total cholesterol 156 LDL 84 HDL 46 triglycerides 130 * A1c normal at 5.3 Plan Chronic Conditions: * HLD: continue Gemfibrozil * Depression/Anxiety/PTSD: continue Sertraline * Migraines w/ Aura: last dose Ajovy 08/24/23, using Nurtec PRN * DILLAN: wears mouth piece, unable to wear CPAP * GERD: continue Pantoprazole * Insomnia: continue Trazodone HS Code Status:Full Total Time Total Time Spent Total Time Spent (In Minutes): It required greater than 30 minutes to prepare this patient for discharge. Discharge Plan Discharge Items Patient Disposition: Home - Self-Care Reason For Visit: NSTEMI Discharge Diagnosis: non ST elevated [place] with Drug eluting stent to LAD Activity: Per Instructions section Activity Comment: no intentional exercise until seen by cardiology Non-emergency contact: Primary Care Provider and Real Estate Executive Assistant Call non-emergency contact if: your symptoms worsen Follow-up/Referrals: Bert Raphael MD, PhD [Physician] - (Dr. Raphael's office will reach out to you directly to schedule your follow up; however, if you do not hear from their office within a few days - please reach out to them at [phone]. Thank you! ) Nigel Chowdary MD [Primary Care Provider] - 09/13/23 1:30 pm (with Tanya Dean PA-C. ) Diet: Heart Healthy Addtl Attending Provider Instructions: ACTIVITY RECOMMENDATIONS: Excess manipulation of the wrist should be avoided for the next 24-48 hours. * No lifting over 2 pounds (approximately a 1/2 gallon of milk) with the utilized arm for 24 hours. * No strenuous activity such as bowling or tennis for 3 days. * Keep the site of the procedure covered with a bandage for 24 hours. *You may shower the day after the procedure. Do not take a tub bath or submerge the puncture site in water for the next 3 days. *Do not operate any motorized equipment for 3 days. SPECIAL CARE INSTRUCTIONS: The site may be slightly bruised and sore following your procedure. Should any of the following occur, contact the Dr. who performed your procedure. 1. Redness/inflammation, swelling, chills, or fever, or colored drainage at procedure site within 3-7 days after your procedure. 2. Coldness, discoloration, ongoing numbness, severe pain, or swelling. Expect mild tingling of hand and tenderness at the puncture site for up to three days. If this persists beyond three days, or other symptoms develop, notify the Dr. who performed your procedure. BLEEDING: If the procedure site on your wrist begins to bleed, do not panic 1. Place 1 or 2 fingers firmly just slightly above the insertion site to stop the bleeding. You may be able to feel your pulse as you hold pressure. 2. Lift your finger after 5 minutes to see if the bleeding has stopped. 3. Once the bleeding has stopped, gently wipe the wrist area clean with a bandage. * If the bleeding from your wrist does not stop after 10 minutes, or if there is a large amount of bleeding or spurting, call 911 (do not drive yourself to the hospital). SKIN IRRITATION: * You may experience some redness and/or swelling in the area where radiation was administered. If any skin irritation occurs, please contact your family physician. FOLLOW UP VISIT: Keep any scheduled doctor appointments. Addtl Bakery Demonstrator Provider Instructions: Dr Raphael wants to try you on low dose Atorvastatin and to do so we will change your Gemfibrozol to Fenofibrate, please speak to Dr Raphael or cardiology office before making any other changes to medications Pending Studies at Discharge: No Stand-Alone Forms: My [facility] 2, Smoking Cessation Medications and DC Order Prescriptions: New atorvastatin 10 mg Tablet 10 mg PO QAM Qty: 30 0RF aspirin 81 mg Tablet,Delayed Release (/Ec) 81 mg PO QAM Qty: 90 3RF losartan 25 mg Tablet 25 mg PO QAM Qty: 30 5RF nitroglycerin [Nitrostat] 0.4 mg Tablet, Sublingual 0.4 mg sublingual Q5M PRN (Reason: chest pain) Qty: 1 0RF metoprolol tartrate 25 mg Tablet 25 mg PO BID Qty: 60 5RF fenofibrate nanocrystallized 145 mg Tablet 145 mg PO DAILY Qty: 30 0RF Brilinta 90 mg Tablet 90 mg PO BID Qty: 60 5RF Continued sertraline [Zoloft] 100 mg tablet 100 mg PO QAM pantoprazole 40 mg tablet,delayed release (DR/EC) 40 mg PO QAM Qty: 90 3RF Ajovy Syringe 225 mg/1.5 mL syringe 225 mg SQ MONTHLY 30 Days Qty: 1.5 11RF Rx Instructions: of Nurtec ODT 75 mg tablet,disintegrating 75 mg PO PRN Qty: 8 4RF tadalafil 5 mg tablet 20 mg PO ONCE PRN (Reason: sexual activity) Qty: 30 11RF trazodone 150 mg Tablet 150 mg PO HS montelukast 10 mg tablet 10 mg PO QPM Rx Instructions: TAKE 1 TABLET DAILY IN THE EVENING ibuprofen 200 mg Tablet 800 mg PO DIRECTED PRN (Reason: Pain) Discontinued amlodipine 5 mg tablet 5 mg PO QAM Rx Instructions: TAKE 1 TABLET DAILY FOR BLOOD PRESSURE gemfibrozil 600 mg tablet 1,200 mg PO QAM Discharge Orders: Discharge Order (Routine); Ordered 09/07/23 Ordered By: Christopher Amaya Admission Data Admit Date/Time: 09/05/23 23:37 Attending Provider: Christopher Amaya Admit Provider: Melodie Peters Primary Care Provider: Nigel Chowdary Other Providers: Shawn Leija; Adarsh Hathaway; Jonas Contreras; Reza Thompson; Bert Raphael; Gianfranco Ball; Lorenzo Gonsalves Jr; Gui Kumar; Amber Jauregui; Guadalupe Odonnell; Daryl Carty; Daryl Elizabeth; Adiel Lanza; Aubree Wolf; Jaziel Ramirez; Kamryn Miller; Javier Bolden.; Jacky Walker; Catalino Horne; Dean Hernández Other Interventions: Discharge Summary Assessment (RN) Last Done: 09/07/23 13:22 Coding Level of Care Code 47513 INP/OBS DISCH >30 MIN Diagnoses NSTEMI (non-ST elevated myocardial infarction) I21.4"
--- NOTE | 2023-09-08 13:10 | Electrocardiogram Report ---
Test Reason : Blood Pressure : / mmHG Vent. Rate : 067 BPM Atrial Rate : 067 BPM P-R Int : 138 ms QRS Dur : 100 ms QT Int : 386 ms P-R-T Axes : 054 070 055 degrees QTc Int : 407 ms Normal sinus rhythm with sinus arrhythmia Normal ECG When compared with ECG of 31-AUG-2022 11:28, No significant change was found Confirmed by Gianfranco Ball ([id number]) on 09/08/2023 1:10:03 PM Referred By: Nigel Chowdary Confirmed By:Gianfranco Ball
--- NOTE | 2023-09-08 13:12 | Electrocardiogram Report ---
Test Reason : Blood Pressure : / mmHG Vent. Rate : 057 BPM Atrial Rate : 057 BPM P-R Int : 088 ms QRS Dur : 100 ms QT Int : 430 ms P-R-T Axes : 017 056 046 degrees QTc Int : 418 ms Sinus bradycardia with short HI Otherwise normal ECG When compared with ECG of 05-SEP-2023 18:12, (unconfirmed) No significant change was found Confirmed by Gianfranco Ball ([id number]) on 09/08/2023 1:12:35 PM Referred By: Nigel Chowdary Confirmed By:Gianfranco Ball
--- NOTE | 2023-09-08 13:15 | Electrocardiogram Report ---
Test Reason : Blood Pressure : / mmHG Vent. Rate : 063 BPM Atrial Rate : 063 BPM P-R Int : 152 ms QRS Dur : 094 ms QT Int : 402 ms P-R-T Axes : 047 056 052 degrees QTc Int : 411 ms Normal sinus rhythm Normal ECG When compared with ECG of 05-SEP-2023 19:45, (unconfirmed) No significant change was found Confirmed by Gianfranco Ball ([id number]) on 09/08/2023 1:15:15 PM Referred By: Nigel Chowdary Confirmed By:Gianfranco Ball
--- NOTE | 2023-09-08 13:17 | Electrocardiogram Report ---
Test Reason : Blood Pressure : / mmHG Vent. Rate : 075 BPM Atrial Rate : 075 BPM P-R Int : 154 ms QRS Dur : 086 ms QT Int : 388 ms P-R-T Axes : 046 055 056 degrees QTc Int : 433 ms Normal sinus rhythm Normal ECG When compared with ECG of 05-SEP-2023 23:07, (unconfirmed) No significant change was found Confirmed by Gianfranco Ball ([id number]) on 09/08/2023 1:17:25 PM Referred By: Nigel Chowdary Confirmed By:Gianfranco Ball
--- NOTE | 2023-09-08 13:19 | Electrocardiogram Report ---
Test Reason : Blood Pressure : / mmHG Vent. Rate : 060 BPM Atrial Rate : 060 BPM P-R Int : 122 ms QRS Dur : 088 ms QT Int : 398 ms P-R-T Axes : 047 062 067 degrees QTc Int : 398 ms Poor data quality, interpretation may be adversely affected Normal sinus rhythm Normal ECG When compared with ECG of 06-SEP-2023 01:02, (unconfirmed) No significant change was found Confirmed by Gianfranco Ball ([id number]) on 09/08/2023 1:19:37 PM Referred By: Nigel Chowdary Confirmed By:Gianfranco Ball
== END 2023-09-07 14:00 | disposition home or self-care (01) | DRG 322 ==
LOC: ED 18:01 → CC 09-06 02:00 → 2S 09-06 02:01 → SUATTDRO 09-06 02:01

== ENCOUNTER 2023-09-14 15:48 | Observation (INO) ==
--- NOTE | 2023-09-14 16:01 | Emergency Department Note ---
Impression & Plan Chest pain ED Provider Note HISTORY OF PRESENT ILLNESS: Patient is a. Male presenting with chest pain. Patient reports that he developed substernal "crushing chest pain" that started 1430. He called EMS around 1445. Reports that he has had continued pain since EMS got there. He was admitted last week and had 2 stents placed to his LAD area. Patient was given 2 nitro and 10 mg of morphine prehospital with EMS, and he still complaining of crushing chest pain on arrival to the ER. He is also given 8 mg of Zofran with EMS for patient's nausea. Patient denies any significant shortness of breath. He is still complaining of some nausea. Patient is complaining that the chest pain radiates into his left arm and left shoulder. ROS: as above PHYSICAL EXAM: Constitutional: Patient appears in no acute distress. Patient is diaphoretic and clutching his chest. HENT: Head: Normocephalic and atraumatic. Eyes: EOMI, PERRL Mouth/Throat: Mucous membranes moist. Neck: Trachea midline. Neck supple. Cardiovascular: Bradycardia with regular rhythm. No murmurs, rubs or gallops. Intact distal pulses. Pulmonary/Chest: No respiratory distress. Breath sounds clear and equal bilaterally. No wheezes or rales. Abdominal: Abdomen soft, no tenderness, rebound or guarding. Musculoskeletal: No edema, tenderness or deformity noted. Skin: Warm and dry. No rash, erythema, pallor or cyanosis Psychiatric: Appropriate mood and affect for situation. Neurological: Alert and keenly responsive. CN II-XII grossly intact, moving all extremities equally and fully. MDM: - Vitals signs showed bradycardia. - History obtained via patient. History as above. - Chronic conditions affecting care: HTN; HLD; CAD (s/p PCI) - Differential diagnoses include, but are not limited to: Acute coronary syndrome; pulmonary embolism; dissection; tension pneumothorax; esophageal rupture; pneumonia - Order placed for continuous cardiac monitoring. At this time, monitor showed rate of 55 bpm with normal sinus rhythm, per my interpretation. - External medical records reviewed. Discharge summary dated 09/07/2023 was reviewed. Patient presented with chest pain and an NSTEMI. He had 2 drug- eluting stents placed to his LAD during his admission. - EKG interpreted by myself showed normal sinus rhythm. Rate bradycardic at 55 bpm. QT 440. No acute ischemic changes. - Laboratory workup interpreted by myself showed normal WBC; stable electrolytes; normal troponin - Patient given a dose of SL nitro in ER. On reassessment, still having pain - Discussed case with guest house manager, Dr. Carty, at 15:55. He came and evaluated the patient and reviewed the EKG and plan to take the patient to the [facility], given patient's chest pain in the setting of recent stents. - Discussed case with hospitalist, Dr. Mccain, for admission post catheterization. ASSESSMENT AND PLAN: Diagnosis: Chest pain Plan: to slab lifting engineer and admit Past Med/Surg History Medical History Epidermal cyst NSTEMI (non-ST elevated myocardial infarction) Parainfluenza virus bronchitis Froin's syndrome Failed back surgical syndrome Degenerative disc disease Spinal stenosis Post traumatic stress disorder Anxiety and depression Migraine Hypertension Hyperlipidemia Sleep apnea Left lateral epicondylitis History of suicide attempt Status epilepticus (10/19/13) Surgical History History of colonoscopy (~09/2021) Family history of reaction to anesthesia Cyst S/P lumbar and lumbosacral fusion by anterior technique [place] teeth removed S/P cervical spinal fusion History of esophagogastroduodenoscopy (EGD) History of lumbar fusion Family History Grandfather (Maternal) Diabetes Mother FHx: skin cancer Sinus disorder Grandmother (Maternal) FHx: stomach cancer Brother Asthma Sinus disorder Father Cardiac disorder Lumbar disc disease Aunt Diabetes Uncle Diabetes Grandmother Cancer Other Gallbladder disease Heart disease Hypertension Social History Smoking Status: Unknown if ever smoked Second Hand Exposure: No; Do You Dip or Chew Tobacco: No; Hx Alcohol Use: No Hx Substance Use: No Preferred Language: Mauritian Communication Ability: Effective Visual Impairment: Limited Hearing Ability: Normal Preventive Medicine Physician Required: No Beliefs That Will Affect Care: None marital status: Current Living Situation: Family current occupational status: employed 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 How many Children do You have: 1 Feels Safe at Home: Yes Diet: regular during the past year weight has: decreased > 10 lbs Assistive Devices: Glasses Allergies Allergies Allergy/AdvReac Type Severity Reaction Status Date / Time hydromorphone Allergy Severe SHORTNESS Verified 09/13/23 13:17 OF BREATH Penicillins Allergy Severe ALLERGY TO Verified 09/13/23 13:17 [id number] doxycycline Allergy Intermediate BLISTERS/HI Verified 09/13/23 13:17 VES lamotrigine Allergy Intermediate tremors Verified 09/13/23 13:17 clindamycin AdvReac Intermediate NAUSEA Verified 09/13/23 13:17 eletriptan AdvReac Mild nausea/vomi Verified 09/13/23 13:17 ting Home Meds Home Medications Medication Instructions Recorded Confirmed sertraline 100 mg tablet (Zoloft) 100 mg PO QAM 02/10/18 09/14/23 trazodone 150 mg tablet 150 mg PO HS 09/03/21 09/14/23 ibuprofen 200 mg tablet 800 mg PO DIRECTED PRN Pain 09/05/23 09/14/23 montelukast 10 mg tablet 10 mg PO QPM 09/05/23 09/14/23 Previous Rx's Medication Instructions Recorded fremanezumab-vfrm 225 mg/1.5 mL 225 mg (1.5 mL) subcut MONTHLY 30 10/13/22 subcutaneous syringe (PhotoSolar days #1.5 mL Syringe) rimegepant 75 mg disintegrating 75 mg PO PRN #8 tabs 10/13/22 tablet (Nurtec ODT) pantoprazole 40 mg tablet,delayed 40 mg PO QAM #90 tabs 01/21/23 release tadalafil 5 mg tablet 20 mg (4 x 5 mg) PO ONCE PRN 04/13/23 sexual activity #30 tabs aspirin 81 mg tablet,delayed 81 mg PO QAM #90 tabs 09/07/23 release atorvastatin 10 mg tablet 10 mg PO QAM #30 tabs 09/07/23 fenofibrate nanocrystallized 145 145 mg PO DAILY #30 tabs 09/07/23 mg tablet losartan 25 mg tablet 25 mg PO QAM #30 tabs 09/07/23 metoprolol tartrate 25 mg tablet 25 mg PO BID #60 tabs 09/07/23 nitroglycerin 0.4 mg sublingual 0.4 mg sublingual Q5M PRN chest 09/07/23 tablet (Nitrostat) pain #1 btl ticagrelor 90 mg tablet (Brilinta) 90 mg PO BID #60 tabs 09/07/23 Results & Data (ED) Vital Signs Vital Signs - 24 hr 09/14/23 15:54 09/14/23 15:57 09/14/23 16:05 Temperature 36.9 C Temperature Source Oral Pulse Rate 56 L 54 L 55 L Pulse Rate [Right Finger] Pulse Rhythm Regular Respiratory Rate 19 19 Respiratory Effort / Characteristics Non-Labored Spontaneous Respiratory Depth Normal Blood Pressure 119/69 Blood Pressure [Right Arm] Blood Pressure Mean 85 Blood Pressure Mean [Right Arm] Pulse Oximetry 97 97 Oxygen Delivery Method Room Air Room Air Sepsis Recent Fever Within 48 Hours No Sepsis New/Unexplained Change in Mental Status N/A Sepsis Action Taken by Nursing No Action Required 09/14/23 16:05 09/14/23 16:35 Temperature Temperature Source Pulse Rate 59 L Pulse Rate [Right Finger] 56 L Pulse Rhythm Respiratory Rate 19 19 Respiratory Effort / Characteristics Respiratory Depth Blood Pressure Blood Pressure [Right Arm] 121/71 Blood Pressure Mean Blood Pressure Mean [Right Arm] 87 Pulse Oximetry 96 97 Oxygen Delivery Method Room Air Room Air Sepsis Recent Fever Within 48 Hours Sepsis New/Unexplained Change in Mental Status Sepsis Action Taken by Nursing Laboratory Data 09/14/23 15:28 09/14/23 15:28 Lab Results 09/14/23 09/14/23 Range/Units 15:28 16:01 WBC 7.94 (4.8-10.8) K/ul RBC 5.01 (4.70-6.10) M/uL Hgb 15.2 (14.0-18.0) g/dl POC Hgb 14.3 (14.0-18.0) g/dl Hct 43.7 (42.0-52.0) % POC Hct 42 (42-52) % MCV 87.2 (80.0-100.0) fL MCH 30.3 (25.0-34.0) pg MCHC 34.8 (32.0-36.0) g/dL RDW Std Deviation 41.7 (36.4-46.3) fL RDW Coeff of Kacey 13.1 (11.5-14.5) % Plt Count 209 (130-400) K/uL MPV 9.5 (9.4-12.4) fL Immature Gran % (Auto) 0.6 % Neut % (Auto) 61.2 % Lymph % (Auto) 26.4 % [place] % (Auto) 8.9 % Eos % (Auto) 2.0 % Baso % (Auto) 0.9 % Neut # (Auto) 4.85 (1.40-6.50) K/uL Lymph # (Auto) 2.10 (1.20-3.40) K/uL [place] # (Auto) 0.71 H (0.11-0.59) K/uL Eos # (Auto) 0.16 (0.00-0.50) K/uL Baso # (Auto) 0.07 (0.00-0.20) K/uL Immature Gran # (Auto) 0.05 (0.01-0.20) K/uL PT 11.8 (9.0-12.0) Seconds INR 1.1 (0.9-1.1) POC Sodium 139 (135-144) mmol/L Sodium 137 (136-145) mmol/L POC Potassium 4.1 (3.3-5.0) mmol/L Potassium 3.7 (3.5-5.1) mmol/L POC Chloride 104 (101-112) mmol/L Chloride 105 (98-107) mmol/L Carbon Dioxide 24 (21-32) mmol/L POC Total CO2 27 (24-31) mmol/L Anion Gap 8 (3-11) POC Anion Gap 13.0 L (16-25) mmol/L POC BUN 30 H (7-18) mg/dl BUN 26 H (6-23) mg/dl Creatinine 1.22 (0.6-1.4) mg/dl POC Creatinine 1.3 (0.6-1.3) mg/dl Est Cr Clr Drug Dosing 91.8 ml/min Est GFR ( Amer) 78.0 ml/min Est GFR (Non-Af Amer) 67.3 ml/min BUN/Creatinine Ratio 21.3 H (10-20) Glucose 110 H (70-99(Fasting)) mg/dl POC Glucose (other) 107 H (70-99) mg/dl Calcium 9.5 (8.6-10.3) mg/dl POC Ioniz Calcium [place] 1.15 (1.12-1.32) mmol/l Magnesium 2.0 (1.7-2.4) mg/dl Total Bilirubin 0.5 (0.2-1.0) mg/dl AST 14 (13-39) U/L ALT 25 (7-52) U/L Alkaline Phosphatase 57 (34-104) U/L Troponin I High Sens 7.8 (0-20) pg/ml Total Protein 7.7 (6.0-8.3) gm/dl Albumin 4.5 (3.4-5.0) gm/dl Globulin 3.2 (2.5-4.0) gm/dl Albumin/Globulin Ratio 1.4 (0.9-2) Lipase 25 (11-82) U/L Administered Medications Discontinued Medications Nitroglycerin (Nitroglycerin Sl 0.4 Mg/Tab Tab) 0.4 mg SL NOW STA Stop: 09/14/23 16:00 Last Admin: 09/14/23 16:03 Dose: 0.4 mg Documented By: ASW Discharge Plan Visit Data Chief Complaint: Chest Pain Stated Complaint: CHEST PAIN ED Provider: Shanda Lo Discharge Problem: Chest pain Patient Disposition: Admitted As Inpatient Discharge Instructions Interventions: ED Discharge Assessment Last Done: 09/14/23 16:35 Forms Stand Alone Forms: [facility] Prescriptions Prescriptions: No Action sertraline [Zoloft] 100 mg tablet 100 mg PO QAM pantoprazole 40 mg tablet,delayed release (DR/EC) 40 mg PO QAM Qty: 90 3RF Ajovy Syringe 225 mg/1.5 mL syringe 225 mg SQ MONTHLY 30 Days Qty: 1.5 11RF Rx Instructions: of Nurtec ODT 75 mg tablet,disintegrating 75 mg PO PRN Qty: 8 4RF tadalafil 5 mg tablet 20 mg PO ONCE PRN (Reason: sexual activity) Qty: 30 11RF trazodone 150 mg Tablet 150 mg PO HS montelukast 10 mg tablet 10 mg PO QPM Rx Instructions: TAKE 1 TABLET DAILY IN THE EVENING ibuprofen 200 mg Tablet 800 mg PO DIRECTED PRN (Reason: Pain) atorvastatin 10 mg Tablet 10 mg PO QAM Qty: 30 0RF aspirin 81 mg Tablet,Delayed Release (Dr/Ec) 81 mg PO QAM Qty: 90 3RF losartan 25 mg Tablet 25 mg PO QAM Qty: 30 5RF nitroglycerin [Nitrostat] 0.4 mg Tablet, Sublingual 0.4 mg sublingual Q5M PRN (Reason: chest pain) Qty: 1 0RF metoprolol tartrate 25 mg Tablet 25 mg PO BID Qty: 60 5RF fenofibrate nanocrystallized 145 mg Tablet 145 mg PO DAILY Qty: 30 0RF Brilinta 90 mg Tablet 90 mg PO BID Qty: 60 5RF Referrals Referrals: Nigel Chwodary MD [Primary Care Provider] -
[2023-09-14] MEDS: NITROGLYCERIN SL 0.4 MG/TAB TAB SL STA (16:03)
[2023-09-14 16:12] LABS: Basophils # (auto) 0.07 K/uL (0.00-0.20); Basophils % (auto) 0.9 %; Eosinophils # (auto) 0.16 K/uL (0.00-0.50); Hematocrit (blood only) 43.7 % (42.0-52.0); Hemoglobin 15.2 g/dl (14.0-18.0); Immature Granulocytes # (auto) 0.05 K/uL (0.01-0.20); Immature Granulocytes % (auto) 0.6 %; Lymphocytes % (auto) 26.4 %; Mean Corpuscular Hemoglobin 30.3 pg (25.0-34.0); Mean Corpuscular Hgb Conc 34.8 g/dL (32.0-36.0); Mean Corpuscular Volume 87.2 fL (80.0-100.0); Mean Platelet Volume 9.5 fL (9.4-12.4); Monocytes # (auto) 0.71 K/uL (0.11-0.59); Monocytes % (auto) 8.9 %; Neutrophils # (auto) 4.85 K/uL (1.40-6.50); Neutrophils % (auto) 61.2 %; Platelet Count 209 K/uL (130-400); RDW Coefficient of Variation 13.1 % (11.5-14.5); RDW Standard Deviation 41.7 fL (36.4-46.3); Red Blood Count 5.01 M/uL (4.70-6.10); White Blood Count 7.94 K/ul (4.8-10.8)
[2023-09-14 16:14] LABS: iSTAT Creatinine 1.3 mg/dl (0.6-1.3); iSTAT Hemoglobin 14.3 g/dl (14.0-18.0); iSTAT Ionized Calcium 1.15 mmol/l (1.12-1.32); iSTAT Potassium 4.1 mmol/L (3.3-5.0)
[2023-09-14 16:30] LABS: Alanine Aminotransferase 25 U/L (7-52); Albumin Globulin Ratio 1.4 (0.9-2); Albumin Level 4.5 gm/dl (3.4-5.0); Alkaline Phosphatase 57 U/L (34-104); Anion Gap 8 (3-11); Aspartate Aminotransferase 14 U/L (13-39); BUN Creatinine Ratio 21.3 (10-20); Bilirubin,Total 0.5 mg/dl (0.2-1.0); Blood Urea Nitrogen 26 mg/dl (6-23); Calcium 9.5 mg/dl (8.6-10.3); Carbon Dioxide 24 mmol/L (21-32); Chloride 105 mmol/L (98-107); Creatinine Clr Calc Pharmacy 91.8 ml/min; Est GFR (Non-African American) 67.3 ml/min; Globulin 3.2 gm/dl (2.5-4.0); Glucose 110 mg/dl (70-99(Fasting)); Lipase 25 U/L (11-82); Potassium 3.7 mmol/L (3.5-5.1); Sodium 137 mmol/L (136-145); Total Protein 7.7 gm/dl (6.0-8.3)
[2023-09-14 16:34] LABS: Troponin I High Sensitivity 7.8 pg/ml (0-20)
[2023-09-14 16:37] LABS: INR 1.1 (0.9-1.1); Prothrombin Time 11.8 Seconds (9.0-12.0)
[2023-09-14] MEDS: HEPARIN (PORCINE) 1000 UNIT/ML 10 ML (CATH LAB USE ONLY) ONE (17:13)
[2023-09-14] MEDS: niCARdipine HCL INJ 2.5 MG/ML 10 ML AMP ONE (17:14)
[2023-09-14] MEDS: MIDAZOLAM HCL 1 MG/ML 2ML VIAL ONE (17:14)
[2023-09-14] MEDS: NITROGLYCERIN/D5W 100MCG/ML 20ML SYR ONE (17:15)
[2023-09-14] MEDS: MoRPHine SULFATE 4 MG/ML 1 ML CARP\\VIAL ONE ×2 (17:15→17:16)
[2023-09-14] MEDS: OPTIRAY 350 ONE (17:15)
--- NOTE | 2023-09-14 17:43 | History & Physical Report ---
Date of Service September 14, 2023 Assessment & Plan (1) Chest pain: Plan: After extensive workup I suspected he has pleurisy and if cardiology are ok with NSAIDs it would likely respond to this - please discuss with Dr Carty tomorrow. Interestingly he feels this is same pain as when he had his NSTEMI however he also had a viral/atypical pneumonia on CT at that time which may have been overlooked in the setting of his NSTEMI. I also admitted him in August 2022 with left chest pain and a diagnosis of parainfluenza viral pneumonia. CTs in August 2022, last admission and today show similar mosaic attenuation compatible with air trapping from infectious/inflammatory airways disease. This cleared in between with a CT in February 2023 suggesting two separate inflammatory events which also fits with his shortness of breath completely resolving in the interim. The fact that his chest pain improved following stent last admission suggest that was his NSTEMI. His current chest pain however is not consistent with acute coronary syndrome given his normal catheterization, mild vasospasm aside not suspected to cause his current pain. His improved/normalized inflammatory markers and lack of positional component suggests this is not post-CA pericarditis (TTE ordered by cardiology). (2) Abnormal CT scan, chest: Plan: Suspected viral pneumonia Bio fire PCR pending, if negative consider pulmonology consult ?autoimmune/atypical PNA (3) Migraine: Plan: Chronic, no acute Ongoing Ajovy injections should be discussed with his neurologist as CGRP theoretically has cardioprotective and vasodilatory effects therefore is recommended to avoid use in patients with recent cardiovascular or cerebrovascular ischemic events (4) Coronary artery disease: Plan: Continue aspirin, Brilinta, metoprolol, losartan, atorvastatin Isosorbide mononitrate added for vasospasm although this is not suspected to of course of symptoms (5) Depression: Plan: Continue sertraline and trazodone (6) Anxiety: Plan VTE prophylaxis - Lovenox 40 mg subcu daily Diet - heart healthy Disposition - admit to PCU Admission and Anticipated Discharge Date Admission Date: September 14, 2023 History of Present Illness Chief Complaint: Chest pain Primary Care Provider: Nigel Chowdary MD Russel Lazcano is a 53 year old male with recent NSTEMI, multiple back surgeries, Froin's syndrome (frequent headaches who presents to the ER with chest pain that feels like his prior CA on March 31st. He reports severity 10/10 left-sided chest pain without radiation started at 2:30 PM while sitting at his work bench and is ongoing. He was given x 2 nitroglycerin and 10 mg morphine prehospital with EMS and was still complaining of crushing chest pain when he came to the ER. I briefly saw him in the emergency room and he was taken emergently for repeat cardiac catheterization since he felt this was the same pain. His catheterization showed widely patent mid to distal LAD stents with moderate nonobstructive coronary artery disease elsewhere. On reviewing the patient postcardiac catheterization he reports ongoing chest pain severity 8/10, worse on inspiration, non-positional, no radiation, sharp, associated nausea/diaphoresis/shortness of breath. He was recently admitted from September 04 to September 07, 2023 with chest pain. His troponin significantly increased and his chest pain became worse and he was taken emergently to the Biomedical Service Engineer the same night of admission. Successful PCI of the mid to distal LAD with overlapping 2.75 x 18 and 2.5 x 30 drug-eluting s tents postdilated with a 2.75 NC balloon proximally and passed the overlapping segment. He reports being chest pain-free following catheterization until today. CT on admission showed generalized mosaic attenuation, no BioFire PCR was taken on this admission. He was notably also admitted in August 2022 with parainfluenza viral pneumonia and a left-sided chest pain at that time in addition. He was worked up for a heart attack at that time with unremarkable TTE and serial negative troponins. CT on this admission showed generalized mosaic attenuation. Allergies Allergy/AdvReac Type Severity Reaction Status Date / Time hydromorphone Allergy Severe SHORTNESS Verified 09/13/23 13:17 OF BREATH Penicillins Allergy Severe ALLERGY TO Verified 09/13/23 13:17 [id number] doxycycline Allergy Intermediate BLISTERS/HI Verified 09/13/23 13:17 VES lamotrigine Allergy Intermediate tremors Verified 09/13/23 13:17 clindamycin AdvReac Intermediate NAUSEA Verified 09/13/23 13:17 eletriptan AdvReac Mild nausea/vomi Verified 09/13/23 13:17 ting Home Medications Medication Instructions Recorded Confirmed Type sertraline 100 mg tablet (Zoloft) 100 mg PO QAM 02/10/18 09/14/23 History trazodone 150 mg tablet 150 mg PO HS 09/03/21 09/14/23 History fremanezumab-vfrm 225 mg/1.5 mL 225 mg (1.5 mL) subcut MONTHLY 30 10/13/22 09/14/23 Rx subcutaneous syringe (Ajovy days #1.5 mL Syringe) rimegepant 75 mg disintegrating 75 mg PO PRN #8 tabs 10/13/22 09/14/23 Rx tablet (Nurtec ODT) pantoprazole 40 mg tablet,delayed 40 mg PO QAM #90 tabs 01/21/23 09/14/23 Rx release tadalafil 5 mg tablet 20 mg (4 x 5 mg) PO ONCE PRN 04/13/23 09/14/23 Rx sexual activity #30 tabs ibuprofen 200 mg tablet 800 mg PO DIRECTED PRN Pain 09/05/23 09/14/23 History montelukast 10 mg tablet 10 mg PO QPM 09/05/23 09/14/23 History aspirin 81 mg tablet,delayed 81 mg PO QAM #90 tabs 09/07/23 09/14/23 Rx release atorvastatin 10 mg tablet 10 mg PO QAM #30 tabs 09/07/23 09/14/23 Rx fenofibrate nanocrystallized 145 145 mg PO DAILY #30 tabs 09/07/23 09/14/23 Rx mg tablet losartan 25 mg tablet 25 mg PO QAM #30 tabs 09/07/23 09/14/23 Rx metoprolol tartrate 25 mg tablet 25 mg PO BID #60 tabs 09/07/23 09/14/23 Rx nitroglycerin 0.4 mg sublingual 0.4 mg sublingual Q5M PRN chest 09/07/23 09/14/23 Rx tablet (Nitrostat) pain #1 btl ticagrelor 90 mg tablet (Brilinta) 90 mg PO BID #60 tabs 09/07/23 09/14/23 Rx Past Med/Surg History Medical History (Updated 09/15/23 @ 01:00 by Ignacio Mccain MD) Epidermal cyst NSTEMI (non-ST elevated myocardial infarction) Parainfluenza virus bronchitis 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 believed r/t the Froin's syndrome. treated at [facility]. HOSPITALIZED 2013 AND 2016 "BELIEVES RELATED TO GABAPENTIN NOT BROKEN DOWN" Surgical History History of colonoscopy (~09/2021) Family history of reaction to anesthesia BROTHER>NAUSEA Cyst REMOVED FROM BACK S/P lumbar and lumbosacral fusion by anterior technique 2003 [place] teeth removed S/P cervical spinal fusion GOOD ROM History of esophagogastroduodenoscopy (EGD) History of lumbar fusion TOTAL 5 LUMBAR SURGERIES (4 POSTERIOR/1 ANTERIOR>LAST LUMBAR) Family History Grandfather (Maternal) Diabetes Mother FHx: skin cancer Sinus disorder Grandmother (Maternal) FHx: stomach cancer Brother Asthma Sinus disorder Father Cardiac disorder Lumbar disc disease Aunt Diabetes Uncle Diabetes Grandmother Cancer Other Gallbladder disease Heart disease Hypertension Social History Smoking Status: Never smoker Second Hand Exposure: No; Do You Dip or Chew Tobacco: No; Hx Alcohol Use: Yes Alcohol type: beer Alcohol Intake Frequency: 2-4 x/Month Hx Substance Use: No Preferred Language: Slovenian Communication Ability: Effective Visual Impairment: Limited Hearing Ability: Normal Dipper Operator Required: No Beliefs That Will Affect Care: None marital status: Current Living Situation: Spouse current occupational status: employed 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 How many Children do You have: 1 Other Information That Helps Us Care for You: No Feels Safe at Home: Yes Safety Concerns: Feels Safe At This Time Diet: regular during the past year weight has: decreased > 10 lbs Assistive Devices: Glasses Review of Systems Review of Systems: All systems reviewed & are unremarkable except as noted in HPI & below Physical Exam Constitutional: WD/WN, vitals as above Eyes: PERRL, conjunctivae normal, anicteric sclerae ENMT: external ear and nose normal, oropharynx normal Neck: trachea midline, no thyromegaly Respiratory: normal respiratory effort, lungs clear to auscultation Cardiovascular: RRR, no murmur, no edema Gastrointestinal (Abdomen): normal bowel sounds, soft, nontender, no hepatosplenomegaly Musculoskeletal: no cyanosis or clubbing, extremities motor strength 5/5 Skin: no rashes, warm and dry Neurologic: moves all extremities and awake; no focal motor deficits and not confused Psychiatric: A+Ox3, euthymic affect Results & Data Results & Data Vital Signs (Past 12 Hours) Vital Signs Temp Pulse Pulse Resp BP BP Pulse Ox 09/14/23 16:35 59 L 19 97 09/14/23 16:05 56 L 19 121/71 96 09/14/23 16:05 55 L 19 97 09/14/23 15:57 36.9 C 54 L 19 119/69 97 09/14/23 15:54 56 L O2 Del Method 09/14/23 16:35 Room Air 09/14/23 16:05 Room Air 09/14/23 16:05 Room Air 09/14/23 15:57 Room Air 09/14/23 15:54 Laboratory Results Abnormal lab results 09/14/23 09/14/23 Range/Units 15:28 16:01 Ashley # (Auto) 0.71 H (0.11-0.59) K/uL POC Anion Gap 13.0 L (16-25) mmol/L POC BUN 30 H (7-18) mg/dl BUN 26 H (6-23) mg/dl BUN/Creatinine Ratio 21.3 H (10-20) Glucose 110 H (70-99(Fasting)) mg/dl POC Glucose (other) 107 H (70-99) mg/dl Diagnostic Findings XR chest 1V portable CLINICAL HISTORY: chest pain TECHNIQUE: Single frontal radiograph of the chest was obtained. Comparison: Comparison is made to chest radiograph 09/05/2023 FINDINGS: ACDF is seen. Cardiomegaly is noted. The lungs are clear. No evidence of pleural effusion or pneumothorax. IMPRESSION: No acute chest disease. CT angio chest PE protocol CLINICAL HISTORY: PE TECHNIQUE: Multidetector row helical CT of the chest was performed with angiographic protocol. Coronal and sagittal reformations were obtained. Coronal and sagittal MIPS were obtained from the axial data set and were submitted for review. Automated dose lowering techniques and/or adjustment according to patient size were utilized for this exam. CT DOSE: 874.78 mGy.cm Comparison: Comparison is made to CT chest 09/06/[address] chest 02/09/2023 FINDINGS: Lungs and pleura: Bronchial wall thickening is seen with mosaic attenuation. There is a 5 mm nodule in the right upper lobe (series 4 image 145) and a 2 mm nodule in the left lower lobe (image 138). Heart and pericardium: Heart size is normal. No pericardial effusion. Vessels: No evidence of pulmonary embolism. LAD calcification is noted. Mediastinum and andre: Subcentimeter lymph nodes are seen. Chest wall and lower neck: Unremarkable. Abdomen: Unremarkable. Bones: Degenerative changes in the thoracic spine. IMPRESSION: 1. No pulmonary embolus. 2. Mosaic attenuation compatible with air trapping from infectious/inflammatory airways disease. Findings may represent bronchitis with reactive lymphadenopathy. 3. Stable pulmonary nodules as above it may also represent infectious process, as they are new from 2022. Medications Administered ER medications given: Nitroglycerin 0.4 mg sublingual ECG Rate (beats per minute): 55 Rhythm: sinus bradycardia Findings: no acute ischemic change Comparison ECG Date: from (September 06, 2023) Change: no significant change Code Status & VTE Plan Code Status Full VTE Prophylaxis Plan VTE Prophylaxis will be ordered: Yes PG Care Time/CCT Total # of Minutes Spent Total Time Spent with Patient: Total time spent is greater than 50% in coordination of care (as documented) at patient's floor/unit and/or counseling patient: Coding Level of Care Code 50720 INT INP/OBS CARE 3/75MIN Diagnoses Chest pain R07.[address] scan, chest R93.89 Migraine G43.909 Coronary artery disease I25.10 Depression F32.9 Anxiety F41.9
[2023-09-14] MEDS: SODIUM CHLORIDE 0.9% 1,000 ML IV SCH (18:05)
[2023-09-14] MEDS: IODIXANOL (VISIPAQUE) 320 MG/ML 100ML IV ONE (18:06)
[2023-09-14] MEDS: fentaNYL citrate PF 100 MCG/2 ML VIAL ONE (18:06)
[2023-09-14] MEDS: MoRPHine SULFATE 2 MG/ML CARP ONE (18:06)
--- NOTE | 2023-09-14 18:09 | Pre Anesthesia Assessment ---
Date of Service September 14, 2023 Pre Sedation Assessment Vital Signs Temp Pulse Pulse Pulse Resp BP BP 09/14/23 18:03 98.2 F 09/14/23 18:00 115/64 09/14/23 18:00 60 17 115/64 09/14/23 17:54 65 16 97/63 L 09/14/23 17:34 65 14 117/61 09/14/23 17:33 65 18 117/61 09/14/23 16:35 59 L 19 09/14/23 16:05 56 L 19 09/14/23 16:05 55 L 19 09/14/23 15:57 98.4 F 54 L 19 119/69 09/14/23 15:54 56 L BP Pulse Ox O2 Del Method 09/14/23 18:03 09/14/23 18:00 09/14/23 18:00 95 Room Air 09/14/23 17:54 95 Room Air 09/14/23 17:34 92 Room Air 09/14/23 17:33 94 Room Air 09/14/23 16:35 97 Room Air 09/14/23 16:05 121/71 96 Room Air 09/14/23 16:05 97 Room Air 09/14/23 15:57 97 Room Air 09/14/23 15:54 Cardiovascular + regular rate Respiratory + respiratory effort normal Pre-Sedation Airway Assessment Smoking Status: Never smoker Hx Sleep Apnea: No Hx Difficult Intubation: No Short, Thick Neck: No Oral Cavity: + WNL Mallampati Class: III ASA: ASA3 Procedure Planning Contraindications for Sedation: none Current Medications Reviewed: Yes Notes The planned sedation has been discussed with the patient. Informed Consent was obtained. I have identified the patient, determined the appropriateness of sedation and have assessed the patient immediately prior to the procedure. All medicine(s) and interventions are by my order.
--- NOTE | 2023-09-14 18:11 | Post Anesthesia Assessment ---
Date of Service September 14, 2023 Post Sedation Assessment Vital Signs Temp Pulse Pulse Pulse Resp BP BP 09/14/23 18:03 98.2 F 09/14/23 18:00 115/64 09/14/23 18:00 60 17 115/64 09/14/23 17:54 65 16 97/63 L 09/14/23 17:34 65 14 117/61 09/14/23 17:33 65 18 117/61 09/14/23 16:35 59 L 19 09/14/23 16:05 56 L 19 09/14/23 16:05 55 L 19 09/14/23 15:57 98.4 F 54 L 19 119/69 09/14/23 15:54 56 L BP Pulse Ox O2 Del Method 09/14/23 18:03 09/14/23 18:00 09/14/23 18:00 95 Room Air 09/14/23 17:54 95 Room Air 09/14/23 17:34 92 Room Air 09/14/23 17:33 94 Room Air 09/14/23 16:35 97 Room Air 09/14/23 16:05 121/71 96 Room Air 09/14/23 16:05 97 Room Air 09/14/23 15:57 97 Room Air 09/14/23 15:54 Recovery Score Activity: Moves 4 extremities Respiration: Deep Breath/Cough Circulation: +/-20% PreAnes Value Consciousness: Fully Awake Oxygen Saturation: O2 needed for >90% Discharge Sedation Level of Care: Fast Track Phase II Post Sedation Plan On clinical assessment, the patient appears to have tolerated the sedation without complications. Patient is recovering as anticipated. Patient will continue to be monitored by nursing and may be discharged when sedation discharge criteria are met per below protocol. Upon Completions of procedure up to 15 minutes continue every 5 minute vital signs and the P.A.R. score; then discharge to a Phase I or Fast Track to Phase II per the following guidelines: * Discharge Patient to appropriate Phase II area if PAR is 8 or greater or return to pre- procedure baseline. The post - procedure orders will be as directed. * If PAR score is less than 8 or not return to pre-procedure baseline then patient will follow Phase I monitoring till PAR is reached for Phase II. The Phase I may be done in procedure room or may call to secure a Phase I area. * If naloxone or flumazenil are used for reversal, hold in Phase I for continued monitoring from when last reversal dose was given for a minimum of 60 minutes or longer pending the nurse and/or physician discretion of patient condition before discharge to Phase II. Please call the Sedation Physician to re-evaluate and complete post-note for discharge to Phase II area. Do NOT discharge from procedure sedation or Phase 1 until post- sedation evaluation note is complete by procedure /sedation MD Sedation Discharge Instructions to be given to the patient at discharge to home.
--- NOTE | 2023-09-14 18:35 | XRay Report ---
XR chest 1V portable CLINICAL HISTORY: chest pain TECHNIQUE: Single frontal radiograph of the chest was obtained. Comparison: Comparison is made to chest radiograph 09/05/2023 FINDINGS: ACDF is seen. Cardiomegaly is noted. The lungs are clear. No evidence of pleural effusion or pneumoth orax. IMPRESSION: No acute chest disease. ACT 112: Negative or not required by law. Electronically signed by: Talon Avendaño M.D. 09/14/2023 6:34 PM
--- NOTE | 2023-09-14 19:17 | Cardiac Catheterization ---
[facility] Data: [employer] Cardiac Status Clinical evaluation leading to the procedure CAD Presenation: Unstable angina Anginal Classification: CCS IV Diagnostic Physicians Name: Daryl Carty MD Closure Device Recommendations: Medical Therapy and/or Counseling Cardiac Cath Procedure Full Procedure Date September 14, 2023 Pre-Procedure Diagnosis Pre-Procedure Diagnosis: Angina AUC Score AUC Score: 7 Post-Procedure Diagnosis Post-Procedure Diagnosis: Moderate CAD Procedure(s) Performed Procedure(s) Performed: Coronary Angiography and Left Heart Cath [employer] Grade Teacher Daryl Carty MD Home And School Visitor(s) Freddie Estimated Blood Loss Estimated Blood Loss: 5 Medication(s) Medication(s): Fentanyl, Heparin, Lidocaine 1%, Nicardipine, Nitroglycerin and Versed Summary of Findings Indication: Suspected ACS. History of CAD post NSTEMI 1 week ago with 2 CHRISTIANA placed to mid to distal LAD Access: 6 Fr right radial artery Catheters: EBU 3.5 guide, diagnostic JR4 Findings: LM -normal caliber, no significant disease LAD -medium caliber, 50 to 60% earlymid stenosis, mid to distal overlapping stents widely patent. Apical vessel with mild to moderate diffuse disease and ELENA II flow. Septals gives off collaterals to RPDA. Circumflex -medium caliber, 40% ostial stenosis, 30% proximal medium OM 2. Small distal AV groove circumflex without significant disease and sluggish flow RCA -dominant, large caliber, 20% mid segment disease, 50% distal stenosis. R PAV without significant disease in the PLB. PDA occluded at ostium and fills via right to right collaterals and [id number] collaterals retrograde. ELENA II flow in LAD improved with IC nitroglycerin/nicardipine. LVEDP -10 Arterial Closure: TR Summary: 1. Moderate nonobstructive coronary artery disease -50 to 60% earlymid LAD Widely patent mid to distal LAD stents ELENA II flow in apical LAD that responded to IC vasodilators. 50% distal RCA. Occluded RPDA with right to right and [id number] collaterals 2. Normal intracardiac filling pressure Recommendations: No new, high risk CAD to explain patient's acute onset rest pain. May have some degree of vasospasm/microvascular dysfunction with sluggish apical LAD flow. Consider addition of long acting nitrate/CCB Continue DAPT with ASA/Ticagrelor Hemodynamics Rest Ao:: 82/48/69 Final Ao: 85/50/69 LV: 95/10 Recommendations Recommendations: Medical Therapy and/or Counseling Radiation Exposure (mGy) 857 Contrast (mls) 50 Anesthesia moderate [id number] Procedural Complication(s) None Disposition PCU I attest to the content of the Intraoperative Record and any orders documented therein. Any exceptions are noted below. [facility] Card Cath Procedure Codes Cardiac Catheterization Procedure 1: Cardiovascular Cath Procedures: 38771 Coronaries and LHC (+/-LV) Moderate Sedation Procedure 1: Sedation/Anesthesia: 49253 Mod Sedation by the same physician;Init15 Min Child Age 5 & Up PG Care Time/CCT Total # of Minutes Spent Total Time Spent with Patient: Total time spent is greater than 50% in coordination of care (as documented) at patient's floor/unit and/or counseling patient:
[2023-09-14] MEDS: MONTELUKAST SODIUM 10 MG TABLET PO SCH (20:15)
[2023-09-14] MEDS: traZODone HCL 50 MG TAB PO SCH (20:15)
[2023-09-14] MEDS: MoRPHine SULFATE 2 MG/ML CARP IV PRN (20:15)
[2023-09-14] MEDS: METOPROLOL TARTRATE 25 MG TAB PO SCH (20:15)
[2023-09-14] MEDS: ISOSORBIDE MONO EXTENDED REL 30 MG TABCR PO SCH (20:15)
[2023-09-14] MEDS: TICAGRELOR 90 MG TAB PO SCH (20:15)
[2023-09-14] MEDS: OPTIRAY 320 125ml IV ONE (20:56)
--- NOTE | 2023-09-14 21:16 | CT Scan Report ---
CT angio chest PE protocol CLINICAL HISTORY: PE TECHNIQUE: Multidetector row helical CT of the chest was performed with angiographic protocol. Chambers l and sagittal reformations were obtained. Coronal and sagittal MIPS were obtained from the axial radha a set and were submitted for review. Automated dose lowering techniques and/or adjustment according to patient size were utilized for this exam. CT DOSE: 874.78 mGy.cm Comparison: Comparison is made to CT chest 09/06/[address] chest 02/09/2023 FINDINGS: Lungs and pleura: Bronchial wall thickening is seen with mosaic attenuation. There is a 5 mm nodule i n the right upper lobe (series 4 image 145) and a 2 mm nodule in the left lower lobe (image 138). Heart and pericardium: Heart size is normal. No pericardial effusion. Vessels: No evidence of pulmonary embolism. LAD calcification is noted. Mediastinum and andre: Subcentimeter lymph nodes are seen. Chest wall and lower neck: Unremarkable. Abdomen: Unremarkable. Bones: Degenerative changes in the thoracic spine. IMPRESSION: 1. No pulmonary embolus. 2. Mosaic attenuation compatible with air trapping from infectious/inflammatory airways disease. Fin dings may represent bronchitis with reactive lymphadenopathy. 3. Stable pulmonary nodules as above it may also represent infectious process, as they are new from 2022. ACT 112: Negative or not required by law. Electronically signed by: Talon Avendaño M.D. 09/14/2023 9:14 PM
[2023-09-14 21:39] LABS: D Dimer < 190 ug/L FEU (0-500)
[2023-09-14 23:16] LABS: C Reactive Protein < 0.50 mg/dl (0-0.5)
[2023-09-15 00:26] LABS: Adenovirus PCR Not Detected (NotDetected); Bordetella parapertussis PCR Not Detected (NotDetected); Bordetella pertussis PCR Not Detected (NotDetected); Chlamydia pneumoniae PCR Not Detected (NotDetected); Coronavirus 229E PCR Not Detected (NotDetected); Coronavirus CoV-2 (COVID19)PCR Not Detected (NotDetected); Coronavirus HKU1 PCR Not Detected (NotDetected); Coronavirus NL63 PCR Not Detected (NotDetected); Coronavirus OC43PCR Not Detected (NotDetected); Human Metapneumovirus PCR Not Detected (NotDetected); Influenza A PCR Not Detected (NotDetected); Influenza B PCR Not Detected (NotDetected); Mycoplasma pneumoniae PCR Not Detected (NotDetected); Parainfluenza Virus 1 PCR Not Detected (NotDetected); Parainfluenza Virus 2 PCR Not Detected (NotDetected); Parainfluenza Virus 3 PCR Not Detected (NotDetected); Parainfluenza Virus 4 PCR Not Detected (NotDetected); Respiratory Syncytial VirusPCR Not Detected (NotDetected); Rhinovirus/Enterovirus PCR Not Detected (NotDetected)
[2023-09-15 05:27] LABS: Basophils # (auto) 0.03 K/uL (0.00-0.20); Basophils % (auto) 0.4 %; Eosinophils # (auto) 0.21 K/uL (0.00-0.50); Immature Granulocytes # (auto) 0.03 K/uL (0.01-0.20); Immature Granulocytes % (auto) 0.4 %; Lymphocytes # (auto) 2.32 K/uL (1.20-3.40); Lymphocytes % (auto) 32.9 %; Mean Corpuscular Hemoglobin 30.2 pg (25.0-34.0); Mean Corpuscular Hgb Conc 34.2 g/dL (32.0-36.0); Mean Corpuscular Volume 88.4 fL (80.0-100.0); Mean Platelet Volume 9.3 fL (9.4-12.4); Monocytes # (auto) 0.69 K/uL (0.11-0.59); Monocytes % (auto) 9.8 %; Neutrophils # (auto) 3.78 K/uL (1.40-6.50); Neutrophils % (auto) 53.5 %; Platelet Count 165 K/uL (130-400); RDW Coefficient of Variation 13.4 % (11.5-14.5); RDW Standard Deviation 43.4 fL (36.4-46.3); White Blood Count 7.06 K/ul (4.8-10.8)
[2023-09-15 05:30] LABS: BUN Creatinine Ratio 17.7 (10-20); Calcium 8.3 mg/dl (8.6-10.3); Creatinine Clr Calc Pharmacy 86.1 ml/min; Est GFR (African American) 72.2 ml/min; Est GFR (Non-African American) 62.3 ml/min; Potassium 3.7 mmol/L (3.5-5.1)
--- NOTE | 2023-09-15 07:10 | Hospitalist Progress Note ---
Date of Service September 15, 2023 Assessment & Plan Plan (1) Chest pain: Plan: After extensive workup I suspected he has pleurisy and if cardiology are ok with NSAIDs it would likely respond to this - please discuss with Dr Carty tomorrow. Interestingly he feels this is same pain as when he had his NSTEMI however he also had a viral/atypical pneumonia on CT at that time which may have been overlooked in the setting of his NSTEMI. I also admitted him in August 2022 with left chest pain and a diagnosis of parainfluenza viral pneumonia. CTs in August 2022, last admission and today show similar mosaic attenuation compatible with air trapping from infectious/inflammatory airways disease. This cleared in between with a CT in February 2023 suggesting two separate inflammatory events which also fits with his shortness of breath completely resolving in the interim. The fact that his chest pain improved following stent last admission suggest that was his NSTEMI. His current chest pain however is not consistent with acute coronary syndrome given his normal catheterization, mild vasospasm aside not suspected to cause his current pain. His improved/normalized inflammatory markers and lack of positional component suggests this is not post-IN p ericarditis (TTE ordered by cardiology). (2) Abnormal CT scan, chest: Plan: Suspected viral pneumonia Bio fire PCR pending, if negative consider pulmonology consult ?autoimmune/atypical PNA (3) Migraine: Plan: Chronic, no acute Ongoing Ajovy injections should be discussed with his neurologist as CGRP theoretically has cardioprotective and vasodilatory effects therefore is recommended to avoid use in patients with recent cardiovascular or cerebrovascular ischemic events (4) Coronary artery disease: Plan: Continue aspirin, Brilinta, metoprolol, losartan, atorvastatin Isosorbide mononitrate added for vasospasm although this is not suspected to of course of symptoms (5) Depression: Plan: Continue sertraline and trazodone (6) Anxiety: Plan VTE prophylaxis - Lovenox 40 mg subcu daily Diet - heart healthy Disposition - admit to PCU Admission and Anticipated Discharge Date Admission Date: September 14, 2023 Subjective Pt is a [] yo [] with a past medical history of [] who presents to the hospital on [] for []. Review of Systems Review of Systems: Constitutional: denies fever, chills, [] HEENT: denies congestion, sore throat Cardio: denies chest pain, palpitations Resp: denies shortness of breath, cough GI: denies abdominal pain, nausea, vomiting, constipation, diarrhea : denies pain with urination, change in urinary frequency Neuro: denies new numbness, tingling, weakness Physical Exam Physical Exam: General:Alert and oriented, no acute distress, [] HEENT: Normocephalic, moist oral mucosa, Cardio: Regular rate and rhythm, no murmur, Resp:Lungs clear to auscultation b/l, no wheezes or rhonchi, GI: Soft and nontender, nondistended, bowel sounds active Skin: Warm, pink, dry, Psych: Mood-affect congruence. Results & Data Results & Data Vital Signs (Past 12 Hours) Vital Signs Temp Pulse Resp BP Pulse Ox O2 Del Method 09/15/23 03:10 37 C 60 18 108/55 L 96 Room Air 09/14/23 22:45 36.9 C 55 L 16 106/54 L 95 Room Air 09/14/23 20:00 Room Air
--- NOTE | 2023-09-15 08:43 | Pulmonary Consultation ---
Date of Consultation September 15, 2023 Assessment & Plan (1) Abnormal CT scan, chest: Plan IMPRESSION: 53-year-old male with a recent significant history of coronary artery disease status post PTCI with CHRISTIANA x 2 to the LAD with recurrent chest pain which prompted return visit. During evaluation, patient found to have diffuse ground glass opacities noted on CTA x 2. Pulmonary medicine consulted for evaluation and management. RECOMMENDATIONS: 1. Abnormal chest CT - Patient has had 2 CTA exams performed in the last week and a half, each of which demonstrating groundglass opacities throughout the lung man. Most recent read from radiologist demonstrates concern for "mosaic attenuation with possible air trapping in the setting of an infectious or inflammatory presentation." These findings are not that changed since prior scan noted on 09/05/2023. The nature of the findings is relatively nonspecific and could be seen in the setting of pulmonary edema, especially in a patient with recent coronary invention, hypertension, etc. The patient is without any complaints of upper respiratory symptoms in the last month or so which could also present similarly. Certainly interstitial lung disease processes including hypersensitivity pneumonitis would certainly be on the differential, however, again, given lack of symptomatology and new findings, this is something that would be managed in the outpatient, particularly with follow-up CT, pulmonary function testing, etc. Given the lack of symptoms, negative BioFire, and no prior sequela of symptoms, I would not treat the patient with antibiotics, steroids, etc. Patient had a hospitalization approximately 1 year ago with parainfluenza with nearly the exact same CT findings. These demonstrated complete resolution in follow-up CT 3 months later. Would recommend patient follow with his primary pulmonary/allergy service in the outpatient setting upon discharge. May warrant follow-up pulmonary function testing and certainly would warrant outpatient follow-up CT of the chest in 2 to 3 months for evaluation of resolution of infiltrative changes. Certainly, if the patient were to develop symptoms or decline, could consider bronchoscopic evaluation, however he is doing well at this point and I predict that he will improve with conservative measures in the outpatient setting. Thank you for allowing us to participate in the care of this pleasant patient. Pulmonary medicine will sign off at this time. Supervising Physician Co-Signing Physician Notes Patient seen and examined. EMR reviewed. Discussed with ROSA and agree with assessment plan as noted. Would recommend trial of diuretics. He can have follow-up PFTs and follow-up CT scan with his outpatient pulmonary provider. If the CT abnormalities persist, additional evaluation may be warranted. Patient should follow-up with Dr. Chowdary History of Present Illness Attending Physician: Nicolas Chung DO History of Present Illness Patient is a 53-year-old male with a significant past medical history of lumbar degenerative disc disease, esophageal reflux, thoracic degenerative disc disease, PTSD, allergic rhinitis, DILLAN, hypertension, dyslipidemia, migraines, anxiety, depression, and Froin's syndrome. Patient was admitted on 09/05/2023 in the setting of NSTEMI. The patient had undergone cardiac catheterization where he underwent intervention with stenting x 2 to the LAD. During that evaluation, the patient had undergone CTA in the setting of chest discomfort which demonstrated "poorly aerated lungs with atelectasis in all lobes. Cannot exclude a component of atypical infection." Of note, patient was having no upper respiratory symptoms at that time. He did state that approximately week prior to this visit he had noticed what he was describing as a "summer cold" with some nasal congestion, but was uncertain if this represented allergies as well. He had had no shortness of breath or cough. No postnasal drip or other upper respiratory symptoms. He was discharged home and actually did have follow-up with his primary service and had been doing well. Unfortunately, he returned with complaints of chest pain yesterday. He underwent catheterization which was unrevealing, however his symptoms have completely resolved at this point. He reports that he feels "10 times better" than yesterday and offers no complaints of shortness of breath, pleuritic pain, hemoptysis, fevers, chills, nasal congestion, postnasal drip, or other concerning symptoms. Patient reports a history of allergies to horses. There is a cat that lives in the house which he is not allergic to. 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 He has been working with all of these materials for several years and had no other recent symptoms. He is a lifelong non-smoker. No history of vaping or e-cigarettes. He has no exposures to birds, turtles, or other exotic animals. They do have a fresh water fish tank in the house which has been there for several years as well and is primarily managed by his son. Patient is fully vaccinated for influenza and COVID-19. Allergies Allergy/AdvReac Type Severity Reaction Status Date / Time hydromorphone Allergy Severe SHORTNESS Verified 09/13/23 13:17 OF BREATH Penicillins Allergy Severe ALLERGY TO Verified 09/13/23 13:17 [id number] doxycycline Allergy Intermediate BLISTERS/HI Verified 09/13/23 13:17 VES lamotrigine Allergy Intermediate tremors Verified 09/13/23 13:17 clindamycin AdvReac Intermediate NAUSEA Verified 09/13/23 13:17 eletriptan AdvReac Mild nausea/vomi Verified 09/13/23 13:17 ting Home Medications Medication Instructions Recorded Confirmed Type sertraline 100 mg tablet (Zoloft) 100 mg PO QAM 02/10/18 09/14/23 History trazodone 150 mg tablet 150 mg PO HS 09/03/21 09/14/23 History fremanezumab-vfrm 225 mg/1.5 mL 225 mg (1.5 mL) subcut MONTHLY 30 10/13/22 09/14/23 Rx subcutaneous syringe ([facility] lisa #1.5 mL Syringe) rimegepant 75 mg disintegrating 75 mg PO PRN #8 tabs 10/13/22 09/14/23 Rx tablet (Nurtec ODT) pantoprazole 40 mg tablet,delayed 40 mg PO QAM #90 tabs 01/21/23 09/14/23 Rx release tadalafil 5 mg tablet 20 mg (4 x 5 mg) PO ONCE PRN 04/13/23 09/14/23 Rx sexual activity #30 tabs ibuprofen 200 mg tablet 800 mg PO DIRECTED PRN Pain 09/05/23 09/14/23 History montelukast 10 mg tablet 10 mg PO QPM 09/05/23 09/14/23 History aspirin 81 mg tablet,delayed 81 mg PO QAM #90 tabs 09/07/23 09/14/23 Rx release atorvastatin 10 mg tablet 10 mg PO QAM #30 tabs 09/07/23 09/14/23 Rx fenofibrate nanocrystallized 145 145 mg PO DAILY #30 tabs 09/07/23 09/14/23 Rx mg tablet losartan 25 mg tablet 25 mg PO QAM #30 tabs 09/07/23 09/14/23 Rx metoprolol tartrate 25 mg tablet 25 mg PO BID #60 tabs 09/07/23 09/14/23 Rx nitroglycerin 0.4 mg sublingual 0.4 mg sublingual Q5M PRN chest 09/07/23 09/14/23 Rx tablet (Nitrostat) pain #1 btl ticagrelor 90 mg tablet (Brilinta) 90 mg PO BID #60 tabs 09/07/23 09/14/23 Rx isosorbide mononitrate 30 mg 30 mg PO QAM #30 tabs 09/15/23 Rx tablet,extended release 24 hr Patient History Medical History (Updated 09/15/23 @ 13:14 by Vero Winkler DO) Epidermal cyst NSTEMI (non-ST elevated myocardial infarction) Parainfluenza virus bronchitis 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 believed r/t the Froin's syndrome. treated at [facility]. HOSPITALIZED 2013 AND 2016 "BELIEVES RELATED TO GABAPENTIN NOT BROKEN DOWN" Surgical History History of colonoscopy (~09/2021) Family history of reaction to anesthesia BROTHER>NAUSEA Cyst REMOVED FROM BACK S/P lumbar and lumbosacral fusion by anterior technique 2003 [place] teeth removed S/P cervical spinal fusion GOOD ROM History of esophagogastroduodenoscopy (EGD) History of lumbar fusion TOTAL 5 LUMBAR SURGERIES (4 POSTERIOR/1 ANTERIOR>LAST LUMBAR) Family History Grandfather (Maternal) Diabetes Mother FHx: skin cancer Sinus disorder Grandmother (Maternal) FHx: stomach cancer Brother Asthma Sinus disorder Father Cardiac disorder Lumbar disc disease Aunt Diabetes Uncle Diabetes Grandmother Cancer Other Gallbladder disease Heart disease Hypertension Social History Smoking Status: Never smoker Second Hand Exposure: No; Do You Dip or Chew Tobacco: No; Hx Alcohol Use: Yes Alcohol type: beer Alcohol Intake Frequency: 2-4 x/Month Hx Substance Use: No Preferred Language: Guinean Communication Ability: Effective Visual Impairment: Limited Hearing Ability: Normal Utility Inspector Required: No Beliefs That Will Affect Care: None marital status: Current Living Situation: Spouse current occupational status: employed 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 All else were negative. Physical Exam Physical Exam: VITAL SIGNS - Vital signs and nursing notes were reviewed. GENERAL - 53-year-old male appearing his stated age who is in no acute distress. Communicates well with provider and answers questions appropriately. SKIN - Without rashes or lesions. NOSE - Midline and without cyanosis. MOUTH/OROPHARYNX - Without perioral cyanosis. NECK - Neck with FROM. LUNGS - Chest wall evaluation demonstrates normal chest wall A:P diameter. Auscultation reveals clear breath sounds bilaterally without wheezes, rales, or rhonchi appreciated. CARDIAC - RRR with S1/S2. No murmur, rubs, or gallops appreciated. ABDOMEN - Abdominal inspection demonstrates an obese abdomen. BS normoactive all four quadrants. No tenderness, palpable masses, or ascites noted. EXTREMITIES - Nail clubbing not present. No peripheral cyanosis. No pretibial edema present. +3/5 radial palpated throughout. PSYCH - A&Ox3 and cooperates fully with examiner. Pt is very pleasant and interacts well with examiner. Results & Data Results & Data Vital Signs (Past 12 Hours) Vital Signs Temp Pulse Resp BP Pulse Ox O2 Del Method 09/15/23 03:10 37 C 60 18 108/55 L 96 Room Air 09/14/23 22:45 36.9 C 55 L 16 106/54 L 95 Room Air PG Care Time/CCT Total # of Minutes Spent Total Time Spent with Patient: Total time spent is greater than 50% in coordination of care (as documented) at patient's floor/unit and/or counseling patient: Coding Level of Care Code 16698 IN/OBS CONSULT LVL 3,45M Diagnoses Abnormal CT scan, chest R93.89
[2023-09-15] MEDS: ATORVASTATIN 10 MG TAB PO SCH (08:45)
[2023-09-15] MEDS: ASPIRIN 81 MG ECTAB PO SCH (08:45)
[2023-09-15] MEDS: ENOXAPARIN INJ 40 MG/0.4 ML SYR SQ SCH (08:45)
[2023-09-15] MEDS: LOSARTAN POTASSIUM 25 MG TAB PO SCH (08:46)
[2023-09-15] MEDS: ISOSORBIDE MONO EXTENDED REL 30 MG TABCR PO SCH (08:46)
[2023-09-15] MEDS: PANTOprazole 40 MG TAB PO SCH (08:47)
[2023-09-15] MEDS: SERTRALINE HCL 100 MG TABLET PO SCH (08:47)
--- NOTE | 2023-09-15 10:51 | XCELERA ---
[id number]
--- NOTE | 2023-09-15 13:11 | Discharge Summary ---
Date of Service September 15, 2023 Admission HPI Per Admitting Provider Russel Lazcano is a 53 year old male with recent NSTEMI, multiple back surgeries, Froin's syndrome (frequent headaches who presents to the ER with chest pain that feels like his prior NE on September 04. He reports severity 10/10 left-sided chest pain without radiation started at 2:30 PM while sitting at his work bench and is ongoing. He was given x 2 nitroglycerin and 10 mg morphine prehospital with EMS and was still complaining of crushing chest pain when he came to the ER. I briefly saw him in the emergency room and he was taken emergently for repeat cardiac catheterization since he felt this was the same pain. His catheterization showed widely patent mid to distal LAD stents with moderate nonobstructive coronary artery disease elsewhere. On reviewing the patient postcardiac catheterization he reports ongoing chest pain severity 8/10, worse on inspiration, non-positional, no radiation, sharp, associated nausea/diaphoresis/shortness of breath. He was recently admitted from September 04 to September 07, 2023 with chest pain. His troponin significantly increased and his chest pain became worse and he was taken emergently to the [facility] the same night of admission. Successful PCI of the mid to distal LAD with overlapping 2.75 x 18 and 2.5 x 30 drug-eluting stents postdilated with a 2.75 NC balloon proximally and passed the overlapping segment. He reports being chest pain-free following catheterization until today. CT on admission showed generalized mosaic attenuation, no BioFire PCR was taken on this admission. He was notably also admitted in August 2022 with parainfluenza viral pneumonia and a left-sided chest pain at that time in addition. He was worked up for a heart attack at that time with unremarkable TTE and serial negative troponins. CT on this admission showed generalized mosaic attenuation. Admission Exam Per Admitting Provider Constitutional: WD/WN, vitals as above Eyes: PERRL, conjunctivae normal, anicteric sclerae ENMT: external ear and nose normal, oropharynx normal Neck: trachea midline, no thyromegaly Respiratory: normal respiratory effort, lungs clear to auscultation Cardiovascular: RRR, no murmur, no edema Gastrointestinal (Abdomen): normal bowel sounds, soft, nontender, no hepatosplenomegaly Musculoskeletal: no cyanosis or clubbing, extremities motor strength 5/5 Skin: no rashes, warm and dry Neurologic: moves all extremities and awake; no focal motor deficits and not confused Psychiatric: A+Ox3, euthymic affect Principal Diagnosis Chest pain, noncardiac Discharge Exam General:Alert and oriented, no acute distress, HEENT: Normocephalic, moist oral mucosa, Cardio: Regular rate and rhythm, no murmur, Resp:Lungs clear to auscultation b/l, no wheezes or rhonchi, GI: Soft and nontender, nondistended, bowel sounds active Skin: Warm, pink, dry, Psych: Mood-affect congruence. Discharge Data Allergies Allergy/AdvReac Type Severity Reaction Status Date / Time hydromorphone Allergy Severe SHORTNESS Verified 09/13/23 13:17 OF BREATH Penicillins Allergy Severe ALLERGY TO Verified 09/13/23 13:17 [id number] doxycycline Allergy Intermediate BLISTERS/HI Verified 09/13/23 13:17 VES lamotrigine Allergy Intermediate tremors Verified 09/13/23 13:17 clindamycin AdvReac Intermediate NAUSEA Verified 09/13/23 13:17 eletriptan AdvReac Mild nausea/vomi Verified 09/13/23 13:17 ting Consultations 09/15/23 00:28 Consult Pulmonology Routine Procedures Performed Operation Date: 09/14/23 16:30 Actual Procedures p Cineradiography w/Routine Exam - Daryl Carty MD s Cath, Left with Cors and Vent - Daryl Carty MD Ordered Studies 09/14/23 16:32 CL Cath Imgs for PACS use only Stat 09/14/23 19:17 CT for pulmonary embolism PE [CT angio chest PE protocol] Stat Hospital Course (1) Chest pain: (2) Depression: (3) Anxiety: (4) Viral pneumonia: Plan Pt is a 53 yo male with a past med hx of recent NSTEMI with distal LAD stent placement on 09/05 , multiple back surgeries, Froin's syndrome (frequent headaches) who presented to the hospital on 09/13 for chest pain. #Chest pain, resolved - presented to the hospital on 09/13 after experiencing 20 minutes of anterior chest pain worse with breathing, which resolved as of 2 am 09/14 per pt - cath done 09/13; wnl, echo done 09/14; 60-65% without wall abnormal, trop neg this admission - CT chest shows some mosaic attenuation infectious/inflammatory, pt notes having URI symptoms 3 weeks ago, and had similar CT findings in August 2022 when sick which had resolved on last CT in Feb 2023 - as cardiac workup negative and chest pain is resolved, believe this was likely secondary to lung inflammation/pleurisy with possibly some coronary spasm in the setting of lung inflammation - biofire neg - cardiology; continue imdur on discharge - pulm; f/u with PCP. consider PFTs #CAD - continue brilinta, metoprolol, losartan, atorvastatin - cardio; start imdur All other chronic conditions managed with home regimes. Total Time Total Time Spent Total Time Spent (In Minutes): <30 Discharge Plan Discharge Items Patient Disposition: Home - Self-Care Reason For Visit: NSTEMI Discharge Diagnosis: Chest pain, non-cardiac Activity: Per Instructions section Non-emergency contact: Primary Care Provider Call non-emergency contact if: you have any medication questions and your symptoms worsen Follow-up/Referrals: Nigel Chowdary MD [Primary Care Provider] - 09/20/23 8:30 am (With Khadijah Dean PA-C) Diet: Regular Addtl Attending Provider Instructions: You were admitted for chest pain. You were evaluated by our cardiology team with a heart enzyme blood test (called troponin), an echocardiogram (an ultrasound of your heart), and a catheterization procedure to look at the arteries of the heart, and all has come back normal. With cardiac causes taken off the table, it seems most likely that your chest pain was secondary to the small amount of inflammation noted in your lungs from the CT scan that is most likely from a recent viral pneumonia that is still clearing, and may also be due to some minor heart artery spasm. With your symptoms resolved, we feel it is safe for you to go home at this time. Medications: Your medication list has been reviewed and reconciled upon discharge to ensure accuracy and continuity of care. An updated list of all your medications is included with your hospital discharge paperwork. Please review this list closely, and make note of any changes. We sent a new medication called Isosorbide mononitrate (Imdur) to your pharmacy. Take Isosorbide mononitrate (Imdur) as 30 mg daily in the morning. This medication was recommended by our cardiology team and helps keep the coronary (heart) arteries open, which may reduce incidences of chest pain in the future due to coronary spasm. Take your medications as instructed; do not skip a dose of your medicines. Make sure all of your doctors know every medicine you are taking (including [id number] medicines, vitamins, and supplements). Call your primary care provider before taking any new medicines (including over- the-counter medicines, vitamins, and supplements), because some of these may interact with your current medications, or may make your symptoms worse. Tell your primary care provider if you cannot afford your medications. Activity: You can do normal everyday activities as your body allows. Take rest breaks if you feel tired. Do not overexert. Stop activity if you have pain, shortness of breath or feel dizzy. Follow-up appointments: Make an appointment with your primary care physician within one week of discharge. A copy of this summary will be sent to them. Every time you see your primary care physician, or any other doctor, bring your medication list and a list of questions. CONTACT YOUR PRIMARY CARE PROVIDER if you experience any of the following: Shortness of breath or difficulty breathing Swelling of your feet, ankles, hands or abdomen Feeling tired with normal activity or experiencing dizziness or fainting Difficulty following your treatment plan, or difficulty taking medications CALL 911 OR GO TO THE EMERGENCY DEPARTMENT if you experience any of the following: Severe abdominal pain or nausea/vomiting Severe chest pain, or chest pain that radiates (moves) to your jaw or arm Sudden, severe shortness of breath or difficulty breathing Thank you for allowing us to participate in your care. Pending Studies at Discharge: No Stand-Alone Forms: [facility], Smoking Cessation Medications and DC Order Prescriptions: New isosorbide mononitrate 30 mg Tablet Extended Release 24 Hr 30 mg PO QAM Qty: 30 1RF Continued sertraline [Zoloft] 100 mg tablet 100 mg PO QAM pantoprazole 40 mg tablet,delayed release (DR/EC) 40 mg PO QAM Qty: 90 3RF Ajovy Syringe 225 mg/1.5 mL syringe 225 mg SQ MONTHLY 30 Days Qty: 1.5 11RF Rx Instructions: Nurtec ODT 75 mg tablet,disintegrating 75 mg PO PRN Qty: 8 4RF tadalafil 5 mg tablet 20 mg PO ONCE PRN (Reason: sexual activity) Qty: 30 11RF trazodone 150 mg Tablet 150 mg PO HS montelukast 10 mg tablet 10 mg PO QPM Rx Instructions: TAKE 1 TABLET DAILY IN THE EVENING ibuprofen 200 mg Tablet 800 mg PO DIRECTED PRN (Reason: Pain) atorvastatin 10 mg Tablet 10 mg PO QAM Qty: 30 0RF aspirin 81 mg Tablet,Delayed Release (Dr/Ec) 81 mg PO QAM Qty: 90 3RF losartan 25 mg Tablet 25 mg PO QAM Qty: 30 5RF nitroglycerin [Nitrostat] 0.4 mg Tablet, Sublingual 0.4 mg sublingual Q5M PRN (Reason: chest pain) Qty: 1 0RF metoprolol tartrate 25 mg Tablet 25 mg PO BID Qty: 60 5RF fenofibrate nanocrystallized 145 mg Tablet 145 mg PO DAILY Qty: 30 0RF Brilinta 90 mg Tablet 90 mg PO BID Qty: 60 5RF Discharge Orders: Discharge Order (Routine); Ordered 09/15/23 Ordered By: Vero Winkler Admission Data Admit Date/Time: 09/14/23 16:49 Attending Provider: Nicolas Chung Admit Provider: Ignacio Mccain Primary Care Provider: Nigel Chowdary Other Providers: Troy Allen Other Interventions: Discharge Summary Assessment (RN) Last Done: 09/15/23 13:49 Supervising Physician Co-Signing Physician Notes I personally examined the patient and verified all castle points of history and exam, discussed case, and agree with decision making with Dr Winkler Feeling better feels up to going home. Vitals noted, and generally awake and alert pleasant no distress. HEENT normocephalic atraumatic mucous membranes moist. Breathing unlabored no accessory muscle use good effort. Skin shows no rashes no pallor or icterus. Neuro without focal deficits. Viral pneumoniaclinically stable, well, okay for home. Outpatient PCP follow- upyou can also function as outpatient pulmonary and allergygiven that if this is anything beyond simply a recurrent viral pneumonia, and eval by allergy and pulmonary as an outpatient with ongoing follow-up/imaging/etc. would be ideal. Otherwise as above. Resident Activity Tracking Resident Involvement: Resident Care Provided Care Provided: Adult Hospital Medicine
--- NOTE | 2023-09-15 14:35 | Cardiology Consultation ---
Date of Consultation September 15, 2023 Assessment & Plan (1) Chest pain: Patient seen in the setting of acute onset chest pain reminiscent of what he had with his prior MS. Fortunately recently placed stents widely patent. HS TropI negative. No evidence of post MS pericarditis. No evidence of aortic pat hology, PE on CT scan. Unsure exactly what caused his acute chest pain yesterday. On coronary angiography did have sluggish flow in apical LAD and may have some degree of coronary vasospasm/microvascular dysfunction. Also has residual moderate proximal LAD disease. Would not expect either of these issues to cause the severe rest pain he was having yesterday particular without objective signs of ischemia. Reassured patient and that no acute high risk causes of chest pain identified. Started on Imdur for vasospasm/microvascular dysfunction. Plan to continue on prior DAPT with aspirin, ticagrelor. Continue prior metoprolol, losartan and statin. From a cardiac standpoint okay with discharge today. Follow-up with cardiology scheduled for 09/23. Will discuss cardiac rehab at that time. History of Present Illness Attending Physician: Nicolas Chung, History of Present Illness Mr. Lazcano is a very pleasant 53-year-old man with a history of coronary disease post recent PCI with 2 CHRISTIANA to mid to distal LAD who returned to ED yesterday with acute onset chest pain. Underwent cardiac cath 09/06/[address] Ramirez in the setting of NSTEMI. Found to have 99% mid LAD stenosis treated with overlapping CHRISTIANA (2.75 x 18, 2.5 x 30). Postprocedure course uncomplicated. Feeling well until 09/14/2023 when developed acute onset crushing chest pain with radiation down right arm (similar to what he had with MS although prior pain radiated down left arm). On arrival to ED ECG largely unchanged but continued to have 10 out of 10 chest pain with diaphoresis and brought urgently to cardiac Public Speaker. Repeat cardiac cath showed widely patent LAD stents, unchanged intermediate proximal LAD disease and again STAFF CONSULTANT of PDA with collaterals. Did have sluggish ELENA II flow in apical LAD which responded to IC vasodilators. Post procedure some improvement in pain. Underwent CTA which showed no PE or aortic pathology. Did have nonspecific mosaic lung findings. ESR/CRP negative. HS TropI. Repeat echocardiogram today showed unchanged preserved LV function, no pericardial effusion. Today chest pain free. Feeling back to baseline. Allergies Allergy/AdvReac Type Severity Reaction Status Date / Time hydromorphone Allergy Severe SHORTNESS Verified 09/13/23 13:17 OF BREATH Penicillins Allergy Severe ALLERGY TO Verified 09/13/23 13:17 [id number] doxycycline Allergy Intermediate BLISTERS/HI Verified 09/13/23 13:17 VES lamotrigine Allergy Intermediate tremors Verified 09/13/23 13:17 clindamycin AdvReac Intermediate NAUSEA Verified 09/13/23 13:17 eletriptan AdvReac Mild nausea/vomi Verified 09/13/23 13:17 ting Home Medications Medication Instructions Recorded Confirmed Type sertraline 100 mg tablet (Zoloft) 100 mg PO QAM 02/10/18 09/14/23 History trazodone 150 mg tablet 150 mg PO HS 09/03/21 09/14/23 History fremanezumab-vfrm 225 mg/1.5 mL 225 mg (1.5 mL) subcut MONTHLY 30 10/13/22 09/14/23 Rx subcutaneous syringe ([facility] #1.5 mL Syringe) rimegepant 75 mg disintegrating 75 mg PO PRN #8 tabs 10/13/22 09/14/23 Rx tablet (Nurtec ODT) pantoprazole 40 mg tablet,delayed 40 mg PO QAM #90 tabs 01/21/23 09/14/23 Rx release tadalafil 5 mg tablet 20 mg (4 x 5 mg) PO ONCE PRN 04/13/23 09/14/23 Rx sexual activity #30 tabs ibuprofen 200 mg tablet 800 mg PO DIRECTED PRN Pain 09/05/23 09/14/23 History montelukast 10 mg tablet 10 mg PO QPM 09/05/23 09/14/23 History aspirin 81 mg tablet,delayed 81 mg PO QAM #90 tabs 09/07/23 09/14/23 Rx release atorvastatin 10 mg tablet 10 mg PO QAM #30 tabs 09/07/23 09/14/23 Rx fenofibrate nanocrystallized 145 145 mg PO DAILY #30 tabs 09/07/23 09/14/23 Rx mg tablet losartan 25 mg tablet 25 mg PO QAM #30 tabs 09/07/23 09/14/23 Rx metoprolol tartrate 25 mg tablet 25 mg PO BID #60 tabs 09/07/23 09/14/23 Rx nitroglycerin 0.4 mg sublingual 0.4 mg sublingual Q5M PRN chest 09/07/23 09/14/23 Rx tablet (Nitrostat) pain #1 btl ticagrelor 90 mg tablet (Brilinta) 90 mg PO BID #60 tabs 09/07/23 09/14/23 Rx isosorbide mononitrate 30 mg 30 mg PO QAM #30 tabs 09/15/23 Rx tablet,extended release 24 hr Patient History Medical History (Updated 09/15/23 @ 13:14 by Vero Winkler DO) Epidermal cyst NSTEMI (non-ST elevated myocardial infarction) Parainfluenza virus bronchitis 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 believed r/t the Froin's syndrome. treated at [facility]. HOSPITALIZED 2013 AND 2016 "BELIEVES RELATED TO GABAPENTIN NOT BROKEN DOWN" Surgical History History of colonoscopy (~09/2021) Family history of reaction to anesthesia BROTHER>NAUSEA Cyst REMOVED FROM BACK S/P lumbar and lumbosacral fusion by anterior technique 2003 [place] teeth removed S/P cervical spinal fusion GOOD ROM History of esophagogastroduodenoscopy (EGD) History of lumbar fusion TOTAL 5 LUMBAR SURGERIES (4 POSTERIOR/1 ANTERIOR>LAST LUMBAR) Family History Grandfather (Maternal) Diabetes Mother FHx: skin cancer Sinus disorder Grandmother (Maternal) FHx: stomach cancer Brother Asthma Sinus disorder Father Cardiac disorder Lumbar disc disease Aunt Diabetes Uncle Diabetes Grandmother Cancer Other Gallbladder disease Heart disease Hypertension Social History Smoking Status: Never smoker Second Hand Exposure: No; Do You Dip or Chew Tobacco: No; Hx Alcohol Use: Yes Alcohol type: beer Alcohol Intake Frequency: 2-4 x/Month Hx Substance Use: No Preferred Language: Taiwanese Communication Ability: Effective Visual Impairment: Limited Hearing Ability: Normal Senior Architectural Designer Required: No Beliefs That Will Affect Care: None marital status: Current Living Situation: Spouse current occupational status: employed 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 Vascular: Right radial artery access site with no ecchymosis, hematoma. Distal pulse and sensation intact. Abdomen: Soft, nontender Extremities: Well perfused, no peripheral edema Neuro: Nonfocal Psych: Alert orient x3, normal affect and mood Results & Data Vital Signs (Past 12 Hours) Vital Signs Temp Pulse Pulse Pulse Resp BP BP 09/15/23 13:49 97.5 F L 56 L 56 L 14 135/71 09/15/23 11:46 97.5 F L 56 L 14 135/71 09/15/23 08:00 111/60 09/15/23 08:00 60 23 09/15/23 07:45 57 L 23 09/15/23 07:30 59 L 16 09/15/23 07:15 56 L 9 L 09/15/23 07:00 102/59 L 09/15/23 07:00 51 L 22 09/15/23 03:10 98.6 F 60 18 108/55 L BP Pulse Ox O2 Del Method 09/15/23 13:49 121/71 96 09/15/23 11:46 96 Room Air 09/15/23 08:00 09/15/23 08:00 95 09/15/23 07:45 93 09/15/23 07:30 91 09/15/23 07:15 89 L 09/15/23 07:00 09/15/23 07:00 96 09/15/23 03:10 96 Room Air PG Care Time/CCT Total # of Minutes Spent Total Time Spent with Patient: Total time spent is greater than 50% in coordination of care (as documented) at patient's floor/unit and/or counseling patient: Coding Level of Care Code 81925 INT INP/OBS CARE MIN Diagnoses Chest pain R07.9
--- NOTE | 2023-09-15 18:46 | Billing Data ---
Date of Service September 15, 2023 Coding Level of Care Code 88842 IN/OBS DISCH 30 MIN/LESS
--- NOTE | 2023-09-17 06:07 | Electrocardiogram Report ---
Test Reason : Blood Pressure : / mmHG Vent. Rate : 055 BPM Atrial Rate : 055 BPM P-R Int : 158 ms QRS Dur : 088 ms QT Int : 440 ms P-R-T Axes : 046 071 076 degrees QTc Int : 420 ms Sinus bradycardia Otherwise normal ECG When compared with ECG of 06-SEP-2023 03:13, No significant change was found Confirmed by Gui Kumar ([id number] on 09/17/2023 6:07:13 AM Referred By: REFERRED SELF Confirmed By:Gui Kumar
--- NOTE | 2023-09-17 06:15 | Electrocardiogram Report ---
Test Reason : Blood Pressure : / mmHG Vent. Rate : 066 BPM Atrial Rate : 066 BPM P-R Int : 162 ms QRS Dur : 096 ms QT Int : 440 ms P-R-T Axes : 051 064 056 degrees QTc Int : 461 ms Poor data quality, interpretation may be adversely affected Normal sinus rhythm Normal ECG When compared with ECG of 14-SEP-2023 15:53, No significant change was found Confirmed by Gui Kumar ([id number] on 09/17/2023 6:15:03 AM Referred By: REFERRED SELF Confirmed By:Gui Kumar
== END 2023-09-15 14:13 | disposition home or self-care (01) | DRG 193 ==
LOC: ED 15:48 → 1E 16:35 → SUATTDRO 16:49 → INTOOBSV 16:49

== ENCOUNTER 2024-05-23 10:31 | Inpatient (IN) ==
--- NOTE | 2024-05-23 11:23 | Emergency Department Note ---
Impression & Plan Pneumonia ADMIT ED Provider Note HPI: History obtained from patient. The patient is a 53-year-old gentleman who presents the emergency department with a chief complaint of shortness of breath, cough, and subjective fever. Patient states he has had the symptoms for about the past 5 days. Patient states he went to see his PCP this morning and was noted to be hypoxic and therefore he was sent to the ER for further evaluation. On my initial assessment the patient is resting on 3 L nasal cannula oxygen with good improvement in his hypoxia. He was noted to be hypoxic at 88% on room air on arrival. Patient states he also has some mild substernal chest discomfort. On arrival here to the ED otherwise the patient is hemodynamically stable, he is afebrile on arrival. ROS: - Per HPI Differential Diagnosis: Pneumonia, viral upper respiratory infection with cough, pulmonary embolism, acute coronary syndrome, pulmonary edema/acute CHF exacerbation, amongst other potential pathologies. *Outpatient medications and allergy history reviewed. PE: General: Alert HEENT: Normocephalic, trachea midline Eyes: Extraocular eye movement is intact, no scleral erythema Pulmonary: Clear to auscultation bilaterally, no wheezing Cardio: Regular rate and rhythm GI: Abdomen is soft to palpation : No suprapubic tenderness MSK: No evidence of trauma or malformation of the extremities, no edema Skin: No evidence of rash Neuro: Alert, no focal deficits Psychiatric: Cooperative INDEPENDENT INTERPRETATIONS: teletypesetter monitor: (As interpreted by myself): - An order was placed for continuous cardiac monitoring - Patient was noted to be in sinus rhythm with a rate of 75 EKG: (As interpreted by myself): Rate: 78 Rhythm: Normal sinus rhythm Intervals: Within normal limits ST changes: No ST elevation Time: 1040 Chest x-ray: (As interpreted by myself): -No focal infiltrate Interventions provided in ED: -IV Levaquin Medical Decision Making: IV was established and lab work obtained, patient was placed on monitoring specialist. Patient was placed on supplemental oxygen for presenting hypoxia of 88% on room air with good improvement in his hypoxia. Lab work shows a leukocytosis of 13.6, hemoglobin is normal, platelet count is normal, venous blood gas shows slightly alkalotic pH of 7.42, pCO2 is slightly low at 37. CMP does not show any evidence of any critical findings, troponin is negative, BNP is within normal limits. Chest x-ray per my interpretation does not show any evidence of any focal infiltrate. Given the patient's hypoxia CT angiography of the chest was obtained that does not show any evidence of pulmonary embolism however upper airway groundglass opacities are noted bilaterally consistent with likely infectious process. Blood cultures were drawn, patient was treated with IV Levaquin here in the ED is viral panel testing was negative. I discussed all of the above findings with the patient, he is in agreement for admission for community-acquired pneumonia and hypoxia. Case was discussed with the on-call hospitalist, Dr. Mccain, the patient was placed for admission in stable condition. Consultants/Discussions held with other healthcare providers: -Hospitalist, Dr. Mccain Disposition discussion held by myself with: -Patient * CRITICAL CARE TIME: ( 47 ) minutes -Stabilization of hypoxia with oxygen saturations at 88% on room air requiring supplemental oxygen for correction, time spent at the bedside, interpretation of diagnostic studies, discussion with other physicians and arrangement of admission. Diagnosis: 1. Hypoxia, acute 2. Community-acquired pneumonia, acute 3. Leukocytosis, acute Disposition: Admission Mt Ward DO Emergency Medicine Past Med/Surg History Problem List (Updated 05/23/24 @ 16:36 by Mt Ward DO) Pneumonia (Acute) Migraine Coronary artery disease Epidermal cyst NSTEMI (non-ST elevated myocardial infarction) (Acute) Sebaceous cyst De Quervain's tenosynovitis Depression (Chronic) Anxiety (Chronic) 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 David Shea ([facility] [place] neuro) Dyslipidemia (Chronic) Hypertension (Chronic) Allergic rhinitis Post traumatic stress disorder (Chronic) Cervical spinal stenosis (Chronic) Thoracic degenerative disc disease (Chronic) Erectile dysfunction (Chronic) Chronic daily headache Medical History Viral pneumonia Abnormal CT scan, chest Chest pain Disc degeneration, lumbar Esophageal reflux Obstructive sleep apnea Migraine with aura Parainfluenza virus bronchitis Froin's syndrome Failed back surgical syndrome Degenerative disc disease Spinal stenosis Post traumatic stress disorder Anxiety and depression Hypertension Hyperlipidemia Sleep apnea Left lateral epicondylitis History of suicide attempt Status epilepticus (10/19/13) Surgical History History of colonoscopy (~09/2021) Family history of reaction to anesthesia Cyst S/P lumbar and lumbosacral fusion by anterior technique [place] teeth removed S/P cervical spinal fusion History of esophagogastroduodenoscopy (EGD) History of lumbar fusion Family History Grandfather (Maternal) Diabetes Mother FHx: skin cancer Sinus disorder Grandmother (Maternal) FHx: stomach cancer Brother Asthma Sinus disorder Father Cardiac disorder Lumbar disc disease Parkinson disease Aunt Diabetes Uncle Diabetes Grandmother Cancer Other Gallbladder disease Heart disease Hypertension Social History Smoking Status: Never smoker Second Hand Exposure: No; Do You Dip or Chew Tobacco: No; Hx Alcohol Use: Yes Alcohol type: beer Alcohol Intake Frequency: 2-4 x/Month Hx Substance Use: No Preferred Language: Telugu Communication Ability: Effective Visual Impairment: No Limitations Hearing Ability: Normal Plate Drying Machine Tender Required: No Beliefs That Will Affect Care: None marital status: Current Living Situation: Spouse and Family current occupational status: employed 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 How many Children do You have: 1 Feels Safe at Home: Yes Childhood Exposure to Second-Hand Smoke: No Diet: regular during the past year weight has: decreased > 10 lbs Dental Care, Regularly: Yes Physical Activity Frequency: Daily Seatbelt Use: always Sunscreen Use: No Assistive Devices: None Allergies Allergies Allergy/AdvReac Type Severity Reaction Status Date / Time hydromorphone Allergy Severe SHORTNESS Verified 05/23/24 15:27 OF BREATH Penicillins Allergy Severe ALLERGY TO Verified 05/23/24 15:27 [id number] doxycycline Allergy Intermediate BLISTERS/HI Verified 05/23/24 15:27 VES lamotrigine Allergy Intermediate tremors Verified 05/23/24 15:27 clindamycin AdvReac Intermediate NAUSEA Verified 05/23/24 15:27 eletriptan AdvReac Mild nausea/vomi Verified 05/23/24 15:27 ting Home Meds Home Medications Medication Instructions Recorded Confirmed atorvastatin 40 mg tablet 40 mg PO QAM 05/23/24 05/23/24 fenofibrate nanocrystallized 145 145 mg PO QAM 05/23/24 05/23/24 mg tablet montelukast 10 mg tablet 10 mg PO QPM 05/23/24 05/23/24 Previous Rx's Medication Instructions Recorded tadalafil 5 mg tablet 20 mg (4 x 5 mg) PO ONCE PRN 04/13/23 sexual activity #30 tabs aspirin 81 mg tablet,delayed 81 mg PO QAM #90 tabs 09/07/23 release nitroglycerin 0.4 mg sublingual 0.4 mg sublingual Q5M PRN chest 09/07/23 tablet (Nitrostat) pain #1 btl losartan 25 mg tablet 25 mg PO QAM #90 tabs 11/03/23 ticagrelor 90 mg tablet (Brilinta) 90 mg PO BID #180 tabs 11/03/23 pantoprazole 40 mg tablet,delayed 40 mg PO QAM #90 tabs 01/14/24 release ondansetron 4 mg disintegrating 4 mg PO Q6H PRN nausea and 02/02/24 tablet vomiting #14 tabs sertraline 100 mg tablet (Zoloft) 100 mg PO QAM #90 tabs 03/31/24 trazodone 150 mg tablet 150 mg PO HS #90 tabs 03/31/24 Results & Data (ED) Vital Signs Vital Signs - 24 hr 05/23/24 10:38 05/23/24 10:41 05/23/24 10:41 Temperature 37.1 C Temperature Source Oral Pulse Rate 80 73 Pulse Rate from SpO2 Sensor Pulse Rhythm Respiratory Rate 22 Respiratory Effort / Characteristics Non-Labored Spontaneous Short of Breath Respiratory Depth Normal Blood Pressure 135/73 Blood Pressure Mean 93 Blood Pressure Position Lying Pulse Oximetry 92 92 Oxygen Delivery Method Room Air Room Air Oxygen Flow Rate Sepsis Recent Fever Within 48 Hours No Sepsis New/Unexplained Change in Mental Status N/A Sepsis Action Taken by Nursing No Action Required Oxygen Flow Rate - Titration Pulse Oximetry Post Tiitration 05/23/24 10:59 05/23/24 11:00 05/23/24 11:00 Temperature Temperature Source Pulse Rate 82 77 76 Pulse Rate from SpO2 Sensor 77 Pulse Rhythm Respiratory Rate 22 21 Respiratory Effort / Characteristics Respiratory Depth Blood Pressure 126/67 Blood Pressure Mean 72 Blood Pressure Position Pulse Oximetry 88 L 91 92 Oxygen Delivery Method Room Air Nasal Cannula Nasal Cannula Oxygen Flow Rate 2 2 Sepsis Recent Fever Within 48 Hours Sepsis New/Unexplained Change in Mental Status Sepsis Action Taken by Nursing Oxygen Flow Rate - Titration Pulse Oximetry Post Tiitration 05/23/24 11:01 05/23/24 11:10 05/23/24 11:30 Temperature Temperature Source Pulse Rate 77 80 Pulse Rate from SpO2 Sensor 79 Pulse Rhythm Regular Respiratory Rate 21 24 Respiratory Effort / Characteristics Respiratory Depth Blood Pressure 116/55 L Blood Pressure Mean 75 Blood Pressure Position Pulse Oximetry 88 L 92 93 Oxygen Delivery Method Nasal Cannula Nasal Cannula Oxygen Flow Rate 0 3 Sepsis Recent Fever Within 48 Hours Sepsis New/Unexplained Change in Mental Status Sepsis Action Taken by Nursing Oxygen Flow Rate - Titration 3 Pulse Oximetry Post Tiitration 91 05/23/24 11:30 05/23/24 11:30 05/23/24 11:30 Temperature Temperature Source Pulse Rate Pulse Rate from SpO2 Sensor Pulse Rhythm Respiratory Rate Respiratory Effort / Characteristics Respiratory Depth Blood Pressure 116/55 L 116/55 L 116/55 L Blood Pressure Mean 69 69 69 Blood Pressure Position Pulse Oximetry Oxygen Delivery Method Oxygen Flow Rate Sepsis Recent Fever Within 48 Hours Sepsis New/Unexplained Change in Mental Status Sepsis Action Taken by Nursing Oxygen Flow Rate - Titration Pulse Oximetry Post Tiitration 05/23/24 11:42 05/23/24 12:00 05/23/24 12:09 Temperature Temperature Source Pulse Rate 82 74 Pulse Rate from SpO2 Sensor 82 76 Pulse Rhythm Respiratory Rate 23 23 Respiratory Effort / Characteristics Respiratory Depth Blood Pressure 142/78 H Blood Pressure Mean 97 Blood Pressure Position Pulse Oximetry 93 93 Oxygen Delivery Method Oxygen Flow Rate Sepsis Recent Fever Within 48 Hours Sepsis New/Unexplained Change in Mental Status Sepsis Action Taken by Nursing Oxygen Flow Rate - Titration Pulse Oximetry Post Tiitration 05/23/24 12:30 05/23/24 13:06 05/23/24 13:36 Temperature Temperature Source Pulse Rate 74 70 72 Pulse Rate from SpO2 Sensor 73 70 73 Pulse Rhythm Respiratory Rate 37 H Respiratory Effort / Characteristics Respiratory Depth Blood Pressure 113/74 115/61 119/69 Blood Pressure Mean 87 79 85 Blood Pressure Position Pulse Oximetry 95 98 96 Oxygen Delivery Method Oxygen Flow Rate Sepsis Recent Fever Within 48 Hours Sepsis New/Unexplained Change in Mental Status Sepsis Action Taken by Nursing Oxygen Flow Rate - Titration Pulse Oximetry Post Tiitration 05/23/24 14:06 05/23/24 14:30 05/23/24 14:45 Temperature Temperature Source Pulse Rate 74 70 71 Pulse Rate from SpO2 Sensor 73 68 Pulse Rhythm Respiratory Rate 33 H 22 Respiratory Effort / Characteristics Respiratory Depth Blood Pressure 105/53 L 126/73 Blood Pressure Mean 70 90 Blood Pressure Position Pulse Oximetry 96 94 Oxygen Delivery Method Oxygen Flow Rate Sepsis Recent Fever Within 48 Hours Sepsis New/Unexplained Change in Mental Status Sepsis Action Taken by Nursing Oxygen Flow Rate - Titration Pulse Oximetry Post Tiitration Laboratory Data 05/23/24 10:40 05/23/24 10:40 Lab Results 05/23/24 05/23/24 05/23/24 Range/Units 10:40 11:25 11:27 WBC 13.66 H (4.8-10.8) K/ul RBC 5.14 (4.70-6.10) M/uL Hgb 15.3 (14.0-18.0) g/dl Hct 45.0 (42.0-52.0) % MCV 87.5 (80.0-100.0) fL MCH 29.8 (25.0-34.0) pg MCHC 34.0 (32.0-36.0) g/dL RDW Std Deviation 42.3 (36.4-46.3) fL RDW Coeff of Kacey 13.2 (11.5-14.5) % Plt Count 222 (130-400) K/uL MPV 8.4 L (9.4-12.4) fL Immature Gran % (Auto) 0.7 % Neut % (Auto) 79.2 % Lymph % (Auto) 11.9 % Peach % (Auto) 6.7 % Eos % (Auto) 1.1 % Baso % (Auto) 0.4 % Neut # (Auto) 10.82 H (1.40-6.50) K/uL Lymph # (Auto) 1.62 (1.20-3.40) K/uL Peach # (Auto) 0.91 H (0.11-0.59) K/uL Eos # (Auto) 0.15 (0.00-0.50) K/uL Baso # (Auto) 0.06 (0.00-0.20) K/uL Immature Gran # (Auto) 0.10 (0.01-0.20) K/uL PT 11.4 (9.0-12.0) Seconds INR 1.1 (0.9-1.1) VBG pH 7.42 H (7.36-7.41) VBG pCO2 37 L (38-50) mmHg VBG pO2 33 mmHg VBG HCO3 24 mmol/L VBG O2 Saturation < 60.0 % VBG Base Excess -0.2 mEq/L Sodium 138 (136-145) mmol/L Potassium 3.9 (3.5-5.1) mmol/L Chloride 106 (98-107) mmol/L Carbon Dioxide 24 (21-32) mmol/L Anion Gap 8 (3-11) BUN 19 (6-23) mg/dl Creatinine 1.08 (0.6-1.4) mg/dl Est Cr Clr Drug Dosing 98.0 ml/min eGFR 82.06 BUN/Creatinine Ratio 17.6 (10-20) Glucose 95 (70-99(Fasting)) mg/dl Calcium 9.6 (8.6-10.3) mg/dl Total Bilirubin 1.1 H (0.2-1.0) mg/dl AST 14 (13-39) U/L ALT 13 (7-52) U/L Alkaline Phosphatase 66 (34-104) U/L Troponin I High Sens 18.2 (0-20) pg/ml B-Natriuretic Peptide 61 (0-100) pg/ml Total Protein 8.0 (6.0-8.3) gm/dl Albumin 4.3 (3.4-5.0) gm/dl Globulin 3.7 (2.5-4.0) gm/dl Albumin/Globulin Ratio 1.2 (0.9-2) Urine Color Urine Appearance (Clear) Urine pH (4.5-7.5) Ur Specific United (1.000-1.030) Urine Protein (Negative) Urine Glucose (UA) (Negative) Urine Ketones (Negative) Urine Blood (Negative) Urine Nitrite (Negative) Urine Bilirubin (Negative) Urine Urobilinogen (Negative) Ur Leukocyte Esterase (Negative) Adenovirus (PCR) Not Detected (NotDetected) B. pertussis DNA (PCR) Not Detected (NotDetected) B.parapertussis DNA PCR Not Detected (NotDetected) C. pneumoniae DNA (PCR) Not Detected (NotDetected) Coronavirus OC43 (PCR) Not Detected (NotDetected) Coronavirus HKU1 (PCR) Not Detected (NotDetected) Coronavirus 229E (PCR) Not Detected (NotDetected) SARS-CoV-2 (PCR) Not Detected (NotDetected) Coronavirus NL63 (PCR) Not Detected (NotDetected) Human Metapneumovir PCR Not Detected (NotDetected) Influenza Type A (PCR) Not Detected (NotDetected) Influenza Type B (PCR) Not Detected (NotDetected) M. pneumoniae (PCR) Not Detected (NotDetected) Parainfluenza 1 (PCR) Not Detected (NotDetected) Parainfluenza 2 (PCR) Not Detected (NotDetected) Parainfluenza 3 (PCR) Not Detected (NotDetected) Parainfluenza 4 (PCR) Not Detected (NotDetected) RSV (PCR) Not Detected (NotDetected) Entero/Rhino (PCR) Not Detected (NotDetected) 05/23/24 Range/Units 11:55 WBC (4.8-10.8) K/ul RBC (4.70-6.10) M/uL Hgb (14.0-18.0) g/dl Hct (42.0-52.0) % MCV (80.0-100.0) fL MCH (25.0-34.0) pg MCHC (32.0-36.0) g/dL RDW Std Deviation (36.4-46.3) fL RDW Coeff of Kacey (11.5-14.5) % Plt Count (130-400) K/uL MPV (9.4-12.4) fL Immature Gran % (Auto) % Neut % (Auto) % Lymph % (Auto) % Peach % (Auto) % Eos % (Auto) % Baso % (Auto) % Neut # (Auto) (1.40-6.50) K/uL Lymph # (Auto) (1.20-3.40) K/uL Peach # (Auto) (0.11-0.59) K/uL Eos # (Auto) (0.00-0.50) K/uL Baso # (Auto) (0.00-0.20) K/uL Immature Gran # (Auto) (0.01-0.20) K/uL PT (9.0-12.0) Seconds INR (0.9-1.1) VBG pH (7.36-7.41) VBG pCO2 (38-50) mmHg VBG pO2 mmHg VBG HCO3 mmol/L VBG O2 Saturation % VBG Base Excess mEq/L Sodium (136-145) mmol/L Potassium (3.5-5.1) mmol/L Chloride (98-107) mmol/L Carbon Dioxide (21-32) mmol/L Anion Gap (3-11) BUN (6-23) mg/dl Creatinine (0.6-1.4) mg/dl Est Cr Clr Drug Dosing ml/min eGFR BUN/Creatinine Ratio (10-20) Glucose (70-99(Fasting)) mg/dl Calcium (8.6-10.3) mg/dl Total Bilirubin (0.2-1.0) mg/dl AST (13-39) U/L ALT (7-52) U/L Alkaline Phosphatase (34-104) U/L Troponin I High Sens (0-20) pg/ml B-Natriuretic Peptide (0-100) pg/ml Total Protein (6.0-8.3) gm/dl Albumin (3.4-5.0) gm/dl Globulin (2.5-4.0) gm/dl Albumin/Globulin Ratio (0.9-2) Urine Color Yellow Urine Appearance Clear (Clear) Urine pH 6.0 (4.5-7.5) Ur Specific [place] 1.021 (1.000-1.030) Urine Protein Negative (Negative) Urine Glucose (UA) Negative (Negative) Urine Ketones Negative (Negative) Urine Blood Negative (Negative) Urine Nitrite Negative (Negative) Urine Bilirubin Negative (Negative) Urine Urobilinogen Negative (Negative) Ur Leukocyte Esterase Negative (Negative) Adenovirus (PCR) (NotDetected) B. pertussis DNA (PCR) (NotDetected) B.parapertussis DNA PCR (NotDetected) C. pneumoniae DNA (PCR) (NotDetected) Coronavirus OC43 (PCR) (NotDetected) Coronavirus HKU1 (PCR) (NotDetected) Coronavirus 229E (PCR) (NotDetected) SARS-CoV-2 (PCR) (NotDetected) Coronavirus NL63 (PCR) (NotDetected) Human Metapneumovir PCR (NotDetected) Influenza Type A (PCR) (NotDetected) Influenza Type B (PCR) (NotDetected) M. pneumoniae (PCR) (NotDetected) Parainfluenza 1 (PCR) (NotDetected) Parainfluenza 2 (PCR) (NotDetected) Parainfluenza 3 (PCR) (NotDetected) Parainfluenza 4 (PCR) (NotDetected) RSV (PCR) (NotDetected) Entero/Rhino (PCR) (NotDetected) Administered Medications Discontinued Medications Levofloxacin/Dextrose (Levaquin/D5w) 750 mg in 150 mls @ 100 mls/hr IV NOW STA Stop: 05/23/24 15:27 Last Admin: 05/23/24 15:20 Dose: 100 mls/hr Documented By: CATHY Ioversol (Optiray 320 125ml) 112 ml IV ONCE ONE Stop: 05/23/24 13:12 Last Admin: 05/23/24 13:11 Dose: 112 ml Documented By: KANDY Imaging Data Radiologist's Impression: Chest X-Ray 05/23/24 11:10 XR chest 1V portable CLINICAL HISTORY: Dyspnea. COMPARISON STUDY: Chest CT February 02, 2024. Chest radiograph May 21, 2024. FINDINGS: Postoperative findings within the spine are incidentally noted. There is no pneumothorax or pleural effusion. Mild interstitial thickening is present. Cardiomediastinal silhouette is stable. No consolidation is identified. IMPRESSION: Subtle interstitial thickening. This may be technical however a mild infectious process could appear similar. ACT 112: Negative or not required by law. Electronically signed by: Bradley Messer M.D. 05/23/2024 12:42 PM Chest CTA 05/23/24 12:53 CT ANGIOGRAPHY OF THE CHEST, PULMONARY EMBOLUS PROTOCOL CLINICAL HISTORY: Dyspnea. Evaluate for pulmonary embolus. COMPARISON STUDY: Chest CT February 02, 2024. Chest radiograph performed earlier today.. TECHNIQUE: Following IV administration of Optiray, helical axial images of the chest were obtained utilizing the pulmonary embolus protocol. Maximal intensity projections and sagittal and coronal reformats were viewed on an independent 3D workstation. IV contrast was administered without complication. Automated exposure control was utilized for the study. A dose lowering technique was utilized adhering to the principles of ALARA. CT DOSE: 925.84 mGy.cm FINDINGS: No pulmonary emboli are identified. There is no thoracic aortic dissection. The heart is mildly enlarged. There is no pericardial effusion. Mildly enlarged mediastinal lymph nodes are likely reactive. There is no pneumothorax or pleural effusion. Extensive ground glass opacities throughout the lungs are noted. These are more pronounced within the upper lobes. Central airways are patent. There is no cavitation. Mild splenomegaly is unchanged. IMPRESSION: 1. No pulmonary emboli identified. 2. Upper lobe predominant extensive groundglass opacities within the lungs which are nonspecific but favor an infectious process. 3. Mild cardiomegaly. 4. Mildly enlarged mediastinal lymph nodes, likely reactive. ACT 112: Negative or not required by law. Electronically signed by: Bradley Messer M.D. 05/23/2024 1:29 PM Discharge Plan Visit Data Chief Complaint: Shortness of Breath/Dyspnea ED Provider: Mt Ward Discharge Problem: Pneumonia Forms Stand Alone Forms: [facility] Click Quote Save Prescriptions Prescriptions: No Action pantoprazole 40 mg tablet,delayed release (DR/EC) 40 mg PO QAM Qty: 90 3RF tadalafil 5 mg tablet 20 mg PO ONCE PRN (Reason: sexual activity) Qty: 30 11RF losartan 25 mg tablet 25 mg PO QAM Qty: 90 3RF Brilinta 90 mg tablet 90 mg PO BID Qty: 180 2RF sertraline [Zoloft] 100 mg tablet 100 mg PO QAM Qty: 90 3RF trazodone 150 mg tablet 150 mg PO HS Qty: 90 3RF aspirin 81 mg Tablet,Delayed Release (Dr/Ec) 81 mg PO QAM Qty: 90 3RF nitroglycerin [Nitrostat] 0.4 mg Tablet, Sublingual 0.4 mg sublingual Q5M PRN (Reason: chest pain) Qty: 1 0RF ondansetron 4 mg tablet,disintegrating 4 mg PO Q6H PRN (Reason: nausea and vomiting) Qty: 14 0RF atorvastatin 40 mg tablet 40 mg PO QAM montelukast 10 mg tablet 10 mg PO QPM Rx Instructions: TAKE 1 TABLET DAILY IN THE EVENING fenofibrate nanocrystallized 145 mg tablet 145 mg PO QAM Referrals Referrals: Ana Rosa Murguia CRNP [Primary Care Provider] - Discharge Problem: Pneumonia Qualifiers: Pneumonia type: due to unspecified organism Laterality: unspecified laterality Lung location: unspecified part of lung Qualified Code(s): J18.9 - Pneumonia, unspecified organism
[2024-05-23 11:38] LABS: Basophils # (auto) 0.06 K/uL (0.00-0.20); Basophils % (auto) 0.4 %; Eosinophils # (auto) 0.15 K/uL (0.00-0.50); Eosinophils % (auto) 1.1 %; Hemoglobin 15.3 g/dl (14.0-18.0); Immature Granulocytes % (auto) 0.7 %; Lymphocytes # (auto) 1.62 K/uL (1.20-3.40); Lymphocytes % (auto) 11.9 %; Mean Corpuscular Hemoglobin 29.8 pg (25.0-34.0); Mean Corpuscular Volume 87.5 fL (80.0-100.0); Mean Platelet Volume 8.4 fL (9.4-12.4); Monocytes # (auto) 0.91 K/uL (0.11-0.59); Monocytes % (auto) 6.7 %; Neutrophils # (auto) 10.82 K/uL (1.40-6.50); Neutrophils % (auto) 79.2 %; Platelet Count 222 K/uL (130-400); RDW Coefficient of Variation 13.2 % (11.5-14.5); RDW Standard Deviation 42.3 fL (36.4-46.3); Red Blood Count 5.14 M/uL (4.70-6.10); White Blood Count 13.66 K/ul (4.8-10.8)
[2024-05-23 11:40] LABS: Base Excess VBG -0.2 mEq/L; HCO3 VBG 24 mmol/L; Oxygen Saturation VBG < 60.0 %; PCO2 VBG 37 mmHg (38-50); PO2 VBG 33 mmHg; pH VBG 7.42 (7.36-7.41)
[2024-05-23 11:50] LABS: Albumin Globulin Ratio 1.2 (0.9-2); Albumin Level 4.3 gm/dl (3.4-5.0); BUN Creatinine Ratio 17.6 (10-20); Bilirubin,Total 1.1 mg/dl (0.2-1.0); Calcium 9.6 mg/dl (8.6-10.3); Globulin 3.7 gm/dl (2.5-4.0); Potassium 3.9 mmol/L (3.5-5.1)
[2024-05-23 11:57] LABS: Troponin I High Sensitivity 18.2 pg/ml (0-20)
[2024-05-23 11:59] LABS: INR 1.1 (0.9-1.1); Prothrombin Time 11.4 Seconds (9.0-12.0)
[2024-05-23 12:28] LABS: Appearance Urine Clear (Clear); Bilirubin Urine Negative (Negative); Blood Urine Negative (Negative); Color Urine Yellow; Glucose Urine UA Negative (Negative); Ketones Urine Negative (Negative); Leukocyte Esterase Urine Negative (Negative); Nitrite Urine Negative (Negative); Protein Urine Negative (Negative); Specific Gravity Urine 1.021 (1.000-1.030); Urobilinogen Urine Negative (Negative)
[2024-05-23 12:31] LABS: Adenovirus PCR Not Detected (NotDetected); Bordetella parapertussis PCR Not Detected (NotDetected); Bordetella pertussis PCR Not Detected (NotDetected); Chlamydia pneumoniae PCR Not Detected (NotDetected); Coronavirus 229E PCR Not Detected (NotDetected); Coronavirus CoV-2 (COVID19)PCR Not Detected (NotDetected); Coronavirus HKU1 PCR Not Detected (NotDetected); Coronavirus NL63 PCR Not Detected (NotDetected); Coronavirus OC43PCR Not Detected (NotDetected); Human Metapneumovirus PCR Not Detected (NotDetected); Influenza A PCR Not Detected (NotDetected); Influenza B PCR Not Detected (NotDetected); Mycoplasma pneumoniae PCR Not Detected (NotDetected); Parainfluenza Virus 1 PCR Not Detected (NotDetected); Parainfluenza Virus 2 PCR Not Detected (NotDetected); Parainfluenza Virus 3 PCR Not Detected (NotDetected); Parainfluenza Virus 4 PCR Not Detected (NotDetected); Respiratory Syncytial VirusPCR Not Detected (NotDetected); Rhinovirus/Enterovirus PCR Not Detected (NotDetected)
--- NOTE | 2024-05-23 12:44 | XRay Report ---
XR chest 1V portable CLINICAL HISTORY: Dyspnea. COMPARISON STUDY: Chest CT February 02, 2024. Chest radiograph May 21, 2024. FINDINGS: Postoperative findings within the spine are incidentally noted. There is no pneumothorax or pleural effusion. Mild interstitial thickening is present. Cardiomediastinal silhouette is stable. N o consolidation is identified. IMPRESSION: Subtle interstitial thickening. This may be technical however a mild infectious process could appear similar. ACT 112: Negative or not required by law. Electronically signed by: Bradley Messer M.D. 05/23/2024 12:42 PM
[2024-05-23] MEDS: OPTIRAY 320 125ml IV ONE (13:11)
--- NOTE | 2024-05-23 13:31 | CT Scan Report ---
CT ANGIOGRAPHY OF THE CHEST, PULMONARY EMBOLUS PROTOCOL CLINICAL HISTORY: Dyspnea. Evaluate for pulmonary embolus. COMPARISON STUDY: Chest CT February 02, 2024. Chest radiograph performed earlier today.. TECHNIQUE: Following IV administration of Optiray, helical axial images of the chest were obtained ut ilizing the pulmonary embolus protocol. Maximal intensity projections and sagittal and coronal refor mats were viewed on an independent 3D workstation. IV contrast was administered without complication . Automated exposure control was utilized for the study. A dose lowering technique was utilized adh ering to the principles of ALARA. CT DOSE: 925.84 mGy.cm FINDINGS: No pulmonary emboli are identified. There is no thoracic aortic dissection. The heart is m ildly enlarged. There is no pericardial effusion. Mildly enlarged mediastinal lymph nodes are likely reactive. There is no pneumothorax or pleural effusion. Extensive ground glass opacities throughout t he lungs are noted. These are more pronounced within the upper lobes. Central airways are patent. The re is no cavitation. Mild splenomegaly is unchanged. IMPRESSION: 1. No pulmonary emboli identified. 2. Upper lobe predominant extensive groundglass opacities within the lungs which are nonspecific but favor an infectious process. 3. Mild cardiomegaly. 4. Mildly enlarged mediastinal lymph nodes, likely reactive. ACT 112: Negative or not required by law. Electronically signed by: Bradley Messer M.D. 05/23/2024 1:29 PM
--- NOTE | 2024-05-23 15:15 | History & Physical Report ---
Date of Service May 23, 2024 Assessment & Plan (1) Multifocal pneumonia: Plan: Levaquin 750mg IV daily - multiple allergies including doxycycline, penicillin and clindamycin Guaifenesin Incentive spirometer Flutter valve Sputum culture Biofire PCR negative, urine legionella antigen ordered (2) Hypoxia: Plan: Aim O2 sats > 90% Wean oxygen as able Plan VTE Prophylaxis - Lovenox 40mg SQ daily Diet - regular Disposition - admit to med/surg Admission and Anticipated Discharge Date Admission Date: May 23, 2024 History of Present Illness Chief Complaint: Hypoxia Primary Care Provider: RESHMA Barnett Russel Lazcano is a 53 year old male who presents to the ER with chest pressure and shortness of breath. He reports symptoms started last week with nasal congestion intermittently. On Wednesday (4 days ago) he started feeling significantly worse with chills and shortness of breath. He went to [facility] ago and CXR showed no consolidation and he was diagnosed with viral upper respiratory infection. He continued to get worse with shortness of breath and chest pressure therefore went to see his PCP today and was noted to be hypoxic on room air therefore sent to the ER for further evaluation. He reports multiple episodes of pneumonia this year but completely recovers in between episodes after a ntibiotics given. Allergies Allergy/AdvReac Type Severity Reaction Status Date / Time hydromorphone Allergy Severe SHORTNESS Verified 05/23/24 15:27 OF BREATH Penicillins Allergy Severe ALLERGY TO Verified 05/23/24 15:27 [id number] doxycycline Allergy Intermediate BLISTERS/HI Verified 05/23/24 15:27 VES lamotrigine Allergy Intermediate tremors Verified 05/23/24 15:27 clindamycin AdvReac Intermediate NAUSEA Verified 05/23/24 15:27 eletriptan AdvReac Mild nausea/vomi Verified 05/23/24 15:27 ting Home Medications Medication Instructions Recorded Confirmed Type tadalafil 5 mg tablet 20 mg (4 x 5 mg) PO ONCE PRN 04/13/23 05/23/24 Rx sexual activity #30 tabs aspirin 81 mg tablet,delayed 81 mg PO QAM #90 tabs 09/07/23 05/23/24 Rx release nitroglycerin 0.4 mg sublingual 0.4 mg sublingual Q5M PRN chest 09/07/23 05/23/24 Rx tablet (Nitrostat) pain #1 btl losartan 25 mg tablet 25 mg PO QAM #90 tabs 11/03/23 05/23/24 Rx ticagrelor 90 mg tablet (Brilinta) 90 mg PO BID #180 tabs 11/03/23 05/23/24 Rx pantoprazole 40 mg tablet,delayed 40 mg PO QAM #90 tabs 01/14/24 05/23/24 Rx release ondansetron 4 mg disintegrating 4 mg PO Q6H PRN nausea and 02/02/24 05/23/24 Rx tablet vomiting #14 tabs sertraline 100 mg tablet (Zoloft) 100 mg PO QAM #90 tabs 03/31/24 05/23/24 Rx trazodone 150 mg tablet 150 mg PO HS #90 tabs 03/31/24 05/23/24 Rx atorvastatin 40 mg tablet 40 mg PO QAM 05/23/24 05/23/24 History fenofibrate nanocrystallized 145 145 mg PO QAM 05/23/24 05/23/24 History mg tablet montelukast 10 mg tablet 10 mg PO QPM 05/23/24 05/23/24 History Past Med/Surg History Problem List (Updated 05/23/24 @ 22:37 by Ignacio Mccain MD) Hypoxia Multifocal pneumonia Pneumonia (Acute) Migraine Coronary artery disease Epidermal cyst Sebaceous cyst De Quervain's tenosynovitis Depression (Chronic) Anxiety (Chronic) 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 David Shea [place] [place] Dyslipidemia (Chronic) Hypertension (Chronic) Allergic rhinitis Post traumatic stress disorder (Chronic) Cervical spinal stenosis (Chronic) Thoracic degenerative disc disease (Chronic) Erectile dysfunction (Chronic) Chronic daily headache Medical History (Updated 05/23/24 @ 22:37 by Ignacio Mccain MD) NSTEMI (non-ST elevated myocardial infarction) Viral pneumonia Abnormal CT scan, chest Chest pain Disc degeneration, lumbar Esophageal reflux Obstructive sleep apnea Migraine with aura Parainfluenza virus bronchitis Froin's syndrome FOLLOWED BY DR. SHEA Failed back surgical syndrome Degenerative disc disease Spinal stenosis Post traumatic stress disorder Anxiety and depression FOLLOWS COUNSELOR 1 X PER MONTH Hypertension Hyperlipidemia Sleep apnea no device Left lateral epicondylitis History of suicide attempt Status epilepticus (10/19/13) No problems since, had mini-seizures r/t "body shutting down". believed r/t the Froin's syndrome. treated at [facility]. HOSPITALIZED 2013 AND 2016 "BELIEVES RELATED TO GABAPENTIN NOT BROKEN DOWN" Surgical History History of colonoscopy (~09/2021) Family history of reaction to anesthesia BROTHER>NAUSEA Cyst REMOVED FROM BACK S/P lumbar and lumbosacral fusion by anterior technique 2003 [place] teeth removed S/P cervical spinal fusion GOOD ROM History of esophagogastroduodenoscopy (EGD) History of lumbar fusion TOTAL 5 LUMBAR SURGERIES (4 POSTERIOR/1 ANTERIOR>LAST LUMBAR) Family History Grandfather (Maternal) Diabetes Mother FHx: skin cancer Sinus disorder Grandmother (Maternal) FHx: stomach cancer Brother Asthma Sinus disorder Father Cardiac disorder Lumbar disc disease Parkinson disease Aunt Diabetes Uncle Diabetes Grandmother Cancer Other Gallbladder disease Heart disease Hypertension Social History Smoking Status: Never smoker Second Hand Exposure: No; Do You Dip or Chew Tobacco: No; Hx Alcohol Use: Yes Alcohol type: beer Alcohol Intake Frequency: 2-4 x/Month Hx Substance Use: No Preferred Language: Monegasque Communication Ability: Effective Visual Impairment: No Limitations Hearing Ability: Normal Photographic Equipment Inspector Required: No Beliefs That Will Affect Care: None marital status: Current Living Situation: Spouse current occupational status: employed 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 How many Children do You have: 1 Other Information That Helps Us Care for You: No Feels Safe at Home: Yes Safety Concerns: Feels Safe At This Time Childhood Exposure to Second-Hand Smoke: No Diet: regular during the past year weight has: decreased > 10 lbs Dental Care, Regularly: Yes Physical Activity Frequency: Daily Seatbelt Use: always Sunscreen Use: No Assistive Devices: Glasses Review of Systems Review of Systems: All systems reviewed & are unremarkable except as noted in HPI & below Physical Exam Constitutional: WD/WN, vitals as above Eyes: + anicteric sclerae; normal pupil size Respiratory: normal respiratory effort; no respiratory distress Auscultation: + crackles (fine posteriorly); breath sounds present, no diminished lung sounds and no wheezes Cardiovascular: RRR, no murmur, no edema Gastrointestinal (Abdomen): normal bowel sounds, soft, nontender, no hepatosplenomegaly Skin: no rashes, warm and dry Neurologic: moves all extremities and awake; not confused Psychiatric: A+Ox3, euthymic affect Results & Data Results & Data Vital Signs (Past 12 Hours) Vital Signs Temp Pulse Resp BP Pulse Ox O2 Del Method O2 Flow Rate 05/23/24 14:45 71 05/23/24 14:06 74 33 H 105/53 L 96 05/23/24 13:36 72 37 H 119/69 96 05/23/24 13:06 70 115/61 98 05/23/24 12:30 74 113/74 95 05/23/24 12:09 74 23 93 05/23/24 12:00 142/78 H 05/23/24 11:42 82 23 93 05/23/24 11:30 116/55 L 05/23/24 11:30 116/55 L 05/23/24 11:30 116/55 L 05/23/24 11:30 80 24 116/55 L 93 05/23/24 11:10 77 21 92 Nasal Cannula 3 05/23/24 11:01 88 L Nasal Cannula 0 05/23/24 11:00 76 126/67 92 Nasal Cannula 2 05/23/24 11:00 77 21 91 Nasal Cannula 2 05/23/24 10:59 82 22 88 L Room Air 05/23/24 10:41 92 Room Air 05/23/24 10:41 37.1 C 73 22 135/73 92 Room Air 05/23/24 10:38 80 Laboratory Results Abnormal lab results 05/23/24 05/23/24 Range/Units 10:40 11:25 WBC 13.66 H (4.8-10.8) K/ul MPV 8.4 L (9.4-12.4) fL Neut # (Auto) 10.82 H (1.40-6.50) K/uL Gilmer # (Auto) 0.91 H (0.11-0.59) K/uL VBG pH 7.42 H (7.36-7.41) VBG pCO2 37 L (38-50) mmHg Total Bilirubin 1.1 H (0.2-1.0) mg/dl Diagnostic Findings XR chest 1V portable CLINICAL HISTORY: Dyspnea. COMPARISON STUDY: Chest CT February 02, 2024. Chest radiograph May 21, 2024. FINDINGS: Postoperative findings within the spine are incidentally noted. There is no pneumothorax or pleural effusion. Mild interstitial thickening is present. Cardiomediastinal silhouette is stable. No consolidation is identified. IMPRESSION: Subtle interstitial thickening. This may be technical however a mild infectious process could appear similar. CT ANGIOGRAPHY OF THE CHEST, PULMONARY EMBOLUS PROTOCOL CLINICAL HISTORY: Dyspnea. Evaluate for pulmonary embolus. COMPARISON STUDY: Chest CT February 02, 2024. Chest radiograph performed earlier today.. TECHNIQUE: Following IV administration of Optiray, helical axial images of the chest were obtained utilizing the pulmonary embolus protocol. Maximal intensity projections and sagittal and coronal reformats were viewed on an independent 3D workstation. IV contrast was administered without complication. Automated exposure control was utilized for the study. A dose lowering technique was utilized adhering to the principles of ALARA. CT DOSE: 925.84 mGy.cm FINDINGS: No pulmonary emboli are identified. There is no thoracic aortic dissection. The heart is mildly enlarged. There is no pericardial effusion. Mildly enlarged mediastinal lymph nodes are likely reactive. There is no pneumothorax or pleural effusion. Extensive ground glass opacities throughout the lungs are noted. These are more pronounced within the upper lobes. Central airways are patent. There is no cavitation. Mild splenomegaly is unchanged. IMPRESSION: 1. No pulmonary emboli identified. 2. Upper lobe predominant extensive groundglass opacities within the lungs which are nonspecific but favor an infectious process. 3. Mild cardiomegaly. 4. Mildly enlarged mediastinal lymph nodes, likely reactive. Medications Administered ER Medications Given: Levofloxacin 750mg IV ECG Rate (beats per minute): 78 Rhythm: normal sinus Findings: no acute ischemic change Comparison ECG Date: from (February 02, 2024) Change: no significant change Code Status & VTE Plan Code Status Full VTE Prophylaxis Plan VTE Prophylaxis will be ordered: Yes PG Care Time/CCT Total # of Minutes Spent Total Time Spent with Patient: Total time spent is greater than 50% in coordination of care (as documented) at patient's floor/unit and/or counseling patient: Coding Level of Care Code 33680 INT INP/OBS CARE 2/55MIN Diagnoses Multifocal pneumonia J18.9 Hypoxia R09.02
[2024-05-23] MEDS: levoFLOXacin/D5W 750 MG/150 ML BAG IV STA (15:20)
[2024-05-23] MEDS ORDERED: ONDANSETRON 4 MG OD TAB PO PRN (17:15)
[2024-05-23] MEDS ORDERED: DEXTROMETHORPHAN POLYMR COMPLX 30 MG/5 ML UDP PO PRN (17:15)
[2024-05-23] MEDS: IBUPROFEN 800 MG TAB PO PRN (20:23)
[2024-05-23] MEDS: MONTELUKAST SODIUM 10 MG TABLET PO SCH (21:05)
[2024-05-23] MEDS: TICAGRELOR 90 MG TAB PO SCH (21:05)
[2024-05-23] MEDS: ACETAMINOPHEN 325 MG TAB PO PRN (21:05)
[2024-05-23] MEDS: traZODone HCL 50 MG TAB PO SCH (21:05)
[2024-05-23] MEDS: guaiFENesin 600 MG TABCR PO SCH (21:05)
[2024-05-23] MEDS: ENOXAPARIN INJ 40 MG/0.4 ML SYR SQ SCH (21:05)
[2024-05-23] MEDS ORDERED: oxyCODONE HCL IR 5 MG TAB (IMMEDIATE RELEASE) PO PRN (21:10)
[2024-05-23] MEDS: oxyCODONE HCL IR 5 MG TAB (IMMEDIATE RELEASE) PO PRN (21:54)
[2024-05-24] MEDS: KETOROLAC TROMETHAMINE 15 MG/ML VIAL IV PRN (00:06)
[2024-05-24 05:07] LABS: Basophils # (auto) 0.04 K/uL (0.00-0.20); Basophils % (auto) 0.4 %; Eosinophils # (auto) 0.19 K/uL (0.00-0.50); Eosinophils % (auto) 2.1 %; Hematocrit (blood only) 39.6 % (42.0-52.0); Hemoglobin 13.5 g/dl (14.0-18.0); Immature Granulocytes # (auto) 0.15 K/uL (0.01-0.20); Immature Granulocytes % (auto) 1.6 %; Lymphocytes # (auto) 2.61 K/uL (1.20-3.40); Lymphocytes % (auto) 28.5 %; Mean Corpuscular Hemoglobin 29.9 pg (25.0-34.0); Mean Corpuscular Hgb Conc 34.1 g/dL (32.0-36.0); Mean Corpuscular Volume 87.6 fL (80.0-100.0); Mean Platelet Volume 8.4 fL (9.4-12.4); Monocytes # (auto) 0.86 K/uL (0.11-0.59); Monocytes % (auto) 9.4 %; Neutrophils # (auto) 5.31 K/uL (1.40-6.50); Platelet Count 194 K/uL (130-400); RDW Coefficient of Variation 13.1 % (11.5-14.5); RDW Standard Deviation 42.2 fL (36.4-46.3); Red Blood Count 4.52 M/uL (4.70-6.10); White Blood Count 9.16 K/ul (4.8-10.8)
[2024-05-24 05:25] LABS: BUN Creatinine Ratio 16.8 (10-20); Calcium 9.2 mg/dl (8.6-10.3); Creatinine Clr Calc Pharmacy 80.8 ml/min
[2024-05-24] MEDS: FENOFIBRATE NANOCRYSTALLIZED 145 MG TABLET PO SCH (07:44)
[2024-05-24] MEDS: ASPIRIN 81 MG ECTAB PO SCH (07:44)
[2024-05-24] MEDS: PANTOprazole 40 MG TAB PO SCH (07:44)
[2024-05-24] MEDS: ATORVASTATIN 40 MG TAB PO SCH (07:44)
[2024-05-24] MEDS: LOSARTAN POTASSIUM 25 MG TAB PO SCH (07:44)
[2024-05-24] MEDS: SERTRALINE HCL 100 MG TABLET PO SCH (07:44)
[2024-05-24 08:02] VITALS: RESP 16
--- NOTE | 2024-05-24 12:00 | Hospitalist Progress Note ---
Date of Service May 24, 2024 Assessment & Plan (1) Multifocal pneumonia: Plan: Presents with worsening SOB and cough Chest x ray and CT show evidence of multifocal PNA Levaquin 750mg IV daily - multiple allergies including doxycycline, penicillin and clindamycin Guaifenesin Incentive spirometer Flutter valve Sputum culture Biofire PCR negative, urine legionella antigen ordered He is worried about the number of times he has had PNA recently May need to follow up with Pulm outpatient for PFT (2) Hypoxia: Plan: Aim O2 sats > 90% Wean oxygen as able (3) Coronary artery disease: Plan: s/p stent continue Aspirin and Ticagrelor (4) Hypertension: Plan: Bp is nick good contyrol continue Losartan Plan VTE Prophylaxis - Lovenox 40mg SQ daily Diet - regular Disposition - admit to med/surg Admission and Anticipated Discharge Date Admission Date: May 23, 2024 Subjective patient seen and examined, still some sob, but improved Review of Systems Review of Systems: All systems reviewed are negative, apart from the ones contained in the history. Physical Exam Physical Exam: The patient is awake, alert and oriented 3, well developed and well nourished, normocephalic and atraumatic, lying in bed and in no acute distress. HEENT--PERRL, EOMI, mucous membranes and oropharynx mildly dry Neck--supple. No JVD. No bruits. Thyroid normal, trachea midline, no adenopathy. Heart--normal S1 and S2. No murmurs, rubs or gallops. Lungs--reduced air entry on asculattaion Abdomen--normal bowel sounds and soft. Extremities--no cyanosis or clubbing. No edema. Dermatologic--normal skin turgor, normal color, no abnormal lymph nodes, no rash. Neurologic--cranial nerves II through XII grossly intact. Rheumatologic--normal range of motion. Psychiatric--normal affect. Results & Data Results & Data Vital Signs (Past 12 Hours) Vital Signs Temp Pulse Resp BP Pulse Ox O2 Del Method O2 Flow Rate 05/24/24 08:02 98.1 F 62 16 110/68 96 Nasal Cannula 3 05/24/24 08:00 Nasal Cannula 3 PG Care Time/CCT Total # of Minutes Spent Total Time Spent with Patient: Total time spent is greater than 50% in coordination of care (as documented) at patient's floor/unit and/or counseling patient: Coding Level of Care Code 61344 SUB INP/OBS CARE 235MIN Diagnoses Multifocal pneumonia J18.9 Hypoxia R09.02 Coronary artery disease I25.10 Hypertension I10 Time Spent (min) 35
[2024-05-24] MEDS: levoFLOXacin/D5W 750 MG/150 ML BAG IV SCH (15:22)
[2024-05-25 07:27] VITALS: TEMP 97.3; O2SAT 95
[2024-05-25 09:46] VITALS: BP 110/68; PULSE 74
--- NOTE | 2024-05-25 10:39 | Discharge Summary ---
Date of Service May 25, 2024 Admission HPI Per Admitting Provider Russel Lazcano is a 53 year old male who presents to the ER with chest pressure and shortness of breath. He reports symptoms started last week with nasal congestion intermittently. On Wednesday (4 days ago) he started feeling significantly worse with chills and shortness of breath. He went to [facility] 2 days ago and CXR showed no consolidation and he was diagnosed with viral upper respiratory infection. He continued to get worse with shortness of breath and chest pressure therefore went to see his PCP today and was noted to be hypoxic on room air therefore sent to the ER for further evaluation. He reports multiple episodes of pneumonia this year but completely recovers in between episodes after antibiotics given. Admission Exam (Per Admitting) Constitutional The patient is awake, alert and oriented 3, well developed and well nourished, normocephalic and atraumatic, lying in bed and in no acute distress. HEENT--PERRL, EOMI, mucous membranes and oropharynx mildly dry Neck--supple. No JVD. No bruits. Thyroid normal, trachea midline, no adenopathy. Heart--normal S1 and S2. No murmurs, rubs or gallops. Lungs--clear bilaterally, no respiratory distress, no accessory muscle use. Abdomen--normal bowel sounds and soft. Extremities--no cyanosis or clubbing. No edema. Dermatologic--normal skin turgor, normal color, no abnormal lymph nodes, no rash. Neurologic--cranial nerves II through XII grossly intact. Rheumatologic--normal range of motion. Psychiatric--normal affect. Discharge Data Consultations 05/23/24 14:13 ED Decision to Admit Stat Hospital Course (1) Multifocal pneumonia: Presents with worsening SOB and cough Chest x ray and CT show evidence of multifocal PNA Levaquin 750mg IV daily - multiple allergies including doxycycline, penicillin and clindamycin Guaifenesin Incentive spirometer Flutter valve Sputum culture Biofire PCR negative, urine legionella antigen ordered d/c on PO levaquin 500mg for 5 days (2) Hypoxia: resolved (3) Coronary artery disease: s/p stent continue Aspirin and Ticagrelor (4) Hypertension: Bp is nick good contyrol continue Losartan Plan VTE Prophylaxis - Lovenox 40mg SQ daily Diet - regular Disposition - d/c home Coding Level of Care Code 68451 INP/OBS DISCH >30 MIN Diagnoses Multifocal pneumonia J18.9 Hypoxia R09.02 Coronary artery disease I25.10 Hypertension I10 Time Spent (min) 35
--- NOTE | 2024-05-25 21:55 | Electrocardiogram Report ---
Test Reason : Blood Pressure : */* mmHG Vent. Rate : 78 BPM Atrial Rate : 78 BPM P-R Int : 140 ms QRS Dur : 88 ms QT Int : 384 ms P-R-T Axes : 56 75 68 degrees QTcB Int : 437 ms Normal sinus rhythm Possible Left atrial enlargement Nonspecific ST abnormality When compared with ECG of 02-Feb-2024 12:56, No significant change was found Confirmed by Gui Kumar ([id number]) on 05/25/2024 9:55:15 PM Referred By: Confirmed By: Gui Kumar
== END 2024-05-25 10:17 | disposition home or self-care (01) | DRG 195 ==
LOC: ED 10:31 → EDINP 15:11 → SUATTDRO 15:11 → 3N 17:15

== ENCOUNTER 2024-06-07 15:45 | Observation (INO) ==
[2024-06-07 16:27] LABS: Basophils # (auto) 0.04 K/uL (0.00-0.20); Basophils % (auto) 0.3 %; Eosinophils # (auto) 0.44 K/uL (0.00-0.50); Eosinophils % (auto) 3.4 %; Hematocrit (blood only) 42.8 % (42.0-52.0); Hemoglobin 14.4 g/dl (14.0-18.0); Immature Granulocytes # (auto) 0.09 K/uL (0.01-0.20); Immature Granulocytes % (auto) 0.7 %; Lymphocytes # (auto) 2.04 K/uL (1.20-3.40); Lymphocytes % (auto) 15.6 %; Mean Corpuscular Hgb Conc 33.6 g/dL (32.0-36.0); Mean Corpuscular Volume 89.2 fL (80.0-100.0); Mean Platelet Volume 8.4 fL (9.4-12.4); Monocytes # (auto) 0.63 K/uL (0.11-0.59); Monocytes % (auto) 4.8 %; Neutrophils % (auto) 75.2 %; Platelet Count 231 K/uL (130-400); RDW Coefficient of Variation 14.2 % (11.5-14.5); RDW Standard Deviation 45.6 fL (36.4-46.3); White Blood Count 13.04 K/ul (4.8-10.8)
--- NOTE | 2024-06-07 16:31 | XRay Report ---
EXAM: Radiograph of the Chest 1 View INDICATION: Chest pain. TECHNIQUE: Frontal view of the chest. COMPARISON: 05/23/2024 FINDINGS: Lungs and pleural spaces: Improved diffuse patchy airspace infiltrates and interstitial thickening. New patchy infiltrate in the right inferior hilum. Heart: Shape and configuration within normal limits allowing for technique. Mediastinum: Normal contour. Bones/joints: No fracture, erosion or dislocation. Soft tissues: No abnormality noted. No radiopaque foreign body noted. Upper abdomen: No abnormality noted. IMPRESSION: 1. Generalized improvement in diffuse interstitial and airspace infiltrates. 2. There is a small focal right infrahilar infiltrate. Developing pneumonia not excluded. ACT 112: Negative or not required by law. Electronically signed by Erin Burns 06-07-2024 4:30 PM
[2024-06-07 16:44] LABS: Albumin Globulin Ratio 1.1 (0.9-2); Albumin Level 3.9 gm/dl (3.4-5.0); BUN Creatinine Ratio 19.8 (10-20); Bilirubin,Total 0.5 mg/dl (0.2-1.0); Creatinine Clr Calc Pharmacy 102.7 ml/min; Globulin 3.6 gm/dl (2.5-4.0); Potassium 3.9 mmol/L (3.5-5.1); Total Protein 7.5 gm/dl (6.0-8.3)
[2024-06-07 16:50] LABS: Troponin I High Sensitivity 11.2 pg/ml (0-20)
--- NOTE | 2024-06-07 16:50 | Emergency Department Note ---
Impression & Plan Pneumonia involving right lung, BYRD (dyspnea on exertion) ED Provider Note NAME: PROIMSE BLACKMAN AGE: 53 SEX: M : 1970 ARRIVES VIA: Walk-In INFORMANT: Patient, ED PROVIDER(S): Willie Mix MD CHIEF COMPLAINT: Shortness of breath, cough MEDICAL DECISION MAKING: Patient presents due to concern for dyspnea. Patient also with associated cough likely infectious process. Negative Homans' sign no signs of DVT on exam. IV was established and blood work was obtained. Patient ordered DuoNebs and methylprednisolone. Chest x-ray concerning for right sided pneumonia. Patient did undergo ambulatory trial was tachypneic and feeling short of breath. Patient with significant exertional dyspnea. Never desatted below 91% but reportedly had had desaturations at home. Patient's blood work shows white count of 13 with a normal H&H and platelet count kidney function is unremarkable. LFTs unremarkable. BioFire negative. I did consider escalation of care and offered admission to patient with the patient would prefer at this time. I did speak the on-call hospital service Dr. Palomo. Patient was ordered Rocephin and azithromycin. Patient was admitted to medicine service. Discussion w/ other healthcare providers: Dr. Palomo inpatient medicine service Prior /Outside records reviewed: I reviewed her reassuring summary from Dr. Hall. Patient had presented due to concern for shortness of breath at that time was diagnosed with multifocal pneumonia and started on Levaquin patient does have multiple allergies including Doxy penicillin clindamycin. I reviewed part of a primary care visit from [facility] the patient did have recurrent pneumonia and multifocal pneumonia. Differential diagnosis: Reactive airway disease, pneumonia, pneumothorax, COPD, CHF, ACS, pulmonary embolism, musculoskeletal, GERD as well as other pathologies were considered. Diagnostics, as interpreted by me: ECG: Normal sinus rhythm, rate of 73, normal intervals, normal axis no ST elevations. No significant change from comparison May 23, 2024 Cardiac monitoring: An order was placed for continuous cardiac monitoring. The monitor shows a rate of 75 with sinus rhythm. Patient was placed on pulse oximetry Medical decision rules: Curb 65 score Imaging studies: I informally interpreted the patient's chest x-ray with right-sided infiltrate with formal report to follow. HPI: Patient presents due to concern for worsening cough and shortness of breath. The patient states that prompted him to show up today is that his pulse ox at home was in 86-87%. Patient states that he has had pneumonia twice before and was recently discharged. The patient was seen in the outpatient setting by PCP was started on steroids but no additional antibiotics. The patient believes that he would benefit from antibiotics at this time. Patient states that all of a sudden he felt worse on Wednesday and has had a steady decline since then. The patient does complain of shortness of breath with activity. No leg swelling or calf pain. The patient states that he does smoke a cigar on occasion but has not done so since January. The patient does have a pulmonology follow-up June 20. PAST MEDICAL HISTORY: See Below PAST SURGICAL HISTORY: See Below SOCIAL HISTORY: See Below HOME MEDICATIONS: See Below ALLERGIES: See Below VITALS: See Below PHYSICAL EXAMINATION: GENERAL: NAD, non-toxic. Wearing glasses. EYE EXAM: Normal conjunctiva. PERRL, no anisocoria and EOM's grossly intact w/o pain. OROPHARYNX: Moist mucus membranes, grossly normal dentition. NECK: Trachea midline, no stridor. Supple, no nuchal rigidity, no adenopathy, non-tender. No signs of meningismus. FROM of the neck with good chin to chest and neck extension. LUNGS: Crackles at the bilateral bases. Normal chest wall mechanics. HEART: NSR, no MRG. ABDOMEN: Abdomen soft, non-tender, no masses, no rebound or guarding. BACK: No CVA TTP. SKIN: No rashes and no bruising. UPPER EXTREMITIES: Upper extremities are grossly normal. LOWER EXTREMITIES: Grossly normal, no edema. Negative Homans' sign bilaterally. NEURO EXAM: A&O x3, cranial nerves II-XII grossly intact, normal speech, moves all 4 extremities. Past Med/Surg History Problem List (Updated 06/08/24 @ 11:11 by Willie Mix MD) BYRD (dyspnea on exertion) (Acute) Pneumonia involving right lung (Acute) Failure of outpatient treatment Acute on chronic respiratory failure with hypoxia Hypoxia Multifocal pneumonia Pneumonia (Acute) Migraine Coronary artery disease Epidermal cyst Sebaceous cyst De Quervain's tenosynovitis Depression (Chronic) Anxiety (Chronic) 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 David Shea ([facility]) Dyslipidemia (Chronic) Hypertension (Chronic) Allergic rhinitis Post traumatic stress disorder (Chronic) Cervical spinal stenosis (Chronic) Thoracic degenerative disc disease (Chronic) Erectile dysfunction (Chronic) Chronic daily headache Medical History NSTEMI (non-ST elevated myocardial infarction) Viral pneumonia Abnormal CT scan, chest Chest pain Disc degeneration, lumbar Esophageal reflux Obstructive sleep apnea Migraine with aura Parainfluenza virus bronchitis Froin's syndrome FOLLOWED BY DR. SHEA Failed back surgical syndrome Degenerative disc disease Spinal stenosis Post traumatic stress disorder Anxiety and depression FOLLOWS COUNSELOR 1 X PER MONTH Hypertension Hyperlipidemia Sleep apnea no device Left lateral epicondylitis History of suicide attempt Status epilepticus (10/19/13) No problems since, had mini-seizures r/t "body shutting down". believed r/t the Froin's syndrome. treated at [facility]. HOSPITALIZED 2013 AND 2015 "BELIEVES RELATED TO GABAPENTIN NOT BROKEN DOWN" Surgical History History of colonoscopy (~09/2021) Family history of reaction to anesthesia BROTHER>NAUSEA Cyst REMOVED FROM BACK S/P lumbar and lumbosacral fusion by anterior technique 2003 [place] teeth removed S/P cervical spinal fusion GOOD ROM History of esophagogastroduodenoscopy (EGD) History of lumbar fusion TOTAL 5 LUMBAR SURGERIES (4 POSTERIOR/1 ANTERIOR>LAST LUMBAR) Family History Grandfather (Maternal) Diabetes Mother FHx: skin cancer Sinus disorder Grandmother (Maternal) FHx: stomach cancer Brother Asthma Sinus disorder Father Cardiac disorder Lumbar disc disease Parkinson disease Aunt Diabetes Uncle Diabetes Grandmother Cancer Other Gallbladder disease Heart disease Hypertension Social History Smoking Status: Never smoker Second Hand Exposure: No; Do You Dip or Chew Tobacco: No; Hx Alcohol Use: Yes Alcohol type: beer Alcohol Intake Frequency: 2-4 x/Month Hx Substance Use: No Preferred Language: Japanese Communication Ability: Effective Visual Impairment: No Limitations Hearing Ability: Normal Cook House Laborer Required: No Beliefs That Will Affect Care: None marital status: Current Living Situation: Spouse and Family Current Living Situation Comment: & Son current occupational status: employed 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 How many Children do You have: 1 Other Information That Helps Us Care for You: No Feels Safe at Home: Yes Safety Concerns: Feels Safe At This Time Childhood Exposure to Second-Hand Smoke: No Diet: regular during the past year weight has: decreased > 10 lbs Dental Care, Regularly: Yes Physical Activity Frequency: Daily Seatbelt Use: always Sunscreen Use: No Assistive Devices: None Allergies Allergies Allergy/AdvReac Type Severity Reaction Status Date / Time hydromorphone Allergy Severe SHORTNESS Verified 05/29/24 09:27 OF BREATH Penicillins Allergy Severe ALLERGY TO Verified 05/29/24 09:27 [id number] doxycycline Allergy Intermediate BLISTERS/HI Verified 05/29/24 09:27 VES lamotrigine Allergy Intermediate tremors Verified 05/29/24 09:27 clindamycin AdvReac Intermediate NAUSEA Verified 05/29/24 09:27 eletriptan AdvReac Mild nausea/vomi Verified 05/29/24 09:27 ting Home Meds Home Medications Medication Instructions Recorded Confirmed atorvastatin 40 mg tablet 40 mg PO QAM 05/23/24 06/07/24 fenofibrate nanocrystallized 145 145 mg PO QAM 05/23/24 06/07/24 mg tablet montelukast 10 mg tablet 10 mg PO QPM 05/23/24 06/07/24 Previous Rx's Medication Instructions Recorded tadalafil 5 mg tablet 20 mg (4 x 5 mg) PO ONCE PRN 04/13/23 sexual activity #30 tabs aspirin 81 mg tablet,delayed 81 mg PO QAM #90 tabs 09/07/23 release nitroglycerin 0.4 mg sublingual 0.4 mg sublingual Q5M PRN chest 09/07/23 tablet (Nitrostat) pain #1 btl losartan 25 mg tablet 25 mg PO QAM #90 tabs 11/03/23 ticagrelor 90 mg tablet (Brilinta) 90 mg PO BID #180 tabs 11/03/23 pantoprazole 40 mg tablet,delayed 40 mg PO QAM #90 tabs 01/14/24 release ondansetron 4 mg disintegrating 4 mg PO Q6H PRN nausea and 02/02/24 tablet vomiting #14 tabs sertraline 100 mg tablet (Zoloft) 100 mg PO QAM #90 tabs 03/31/24 trazodone 150 mg tablet 150 mg PO HS #90 tabs 03/31/24 Results & Data (ED) Vital Signs Vital Signs - 24 hr 06/07/24 15:48 06/07/24 17:13 06/07/24 17:13 Temperature 36.2 C L Temperature Source Temporal Artery Scan Pulse Rate 83 Pulse Rate [Apical] 61 Pulse Rhythm Regular Pulse Strength Normal Respiratory Rate 20 26 H Respiratory Effort / Characteristics Non-Labored Spontaneous Spontaneous Respiratory Depth Normal Normal Respiratory Pattern Regular Blood Pressure 154/87 H Blood Pressure [Right Arm] 135/60 Blood Pressure Mean 109 Blood Pressure Mean [Right Arm] 85 Blood Pressure Position Sitting Blood Pressure Position [Right Arm] Semi-fowlers Pulse Oximetry 92 97 Pulse Oximetry [Exercises] Pulse Oximetry [Recovery] Pulse Oximetry [Resting] Oxygen Delivery Method Room Air Room Air Nebulizer Oxygen Flow Rate 94 Sepsis Recent Fever Within 48 Hours No Sepsis New/Unexplained Change in Mental Status No Sepsis Action Taken by Nursing No Action Required 06/07/24 17:13 06/07/24 17:30 06/07/24 18:42 Temperature Temperature Source Pulse Rate 71 77 Pulse Rate [Apical] Pulse Rhythm Pulse Strength Respiratory Rate 19 Respiratory Effort / Characteristics Respiratory Depth Respiratory Pattern Blood Pressure Blood Pressure [Right Arm] Blood Pressure Mean Blood Pressure Mean [Right Arm] Blood Pressure Position Blood Pressure Position [Right Arm] Pulse Oximetry 94 Pulse Oximetry [Exercises] 91 Pulse Oximetry [Recovery] 93 Pulse Oximetry [Resting] 93 Oxygen Delivery Method Room Air Room Air Oxygen Flow Rate Sepsis Recent Fever Within 48 Hours Sepsis New/Unexplained Change in Mental Status Sepsis Action Taken by Nursing 06/07/24 19:00 Temperature Temperature Source Pulse Rate Pulse Rate [Apical] 80 Pulse Rhythm Pulse Strength Respiratory Rate 21 Respiratory Effort / Characteristics Respiratory Depth Respiratory Pattern Blood Pressure Blood Pressure [Right Arm] 139/86 Blood Pressure Mean Blood Pressure Mean [Right Arm] 103 Blood Pressure Position Blood Pressure Position [Right Arm] Semi-fowlers Pulse Oximetry 92 Pulse Oximetry [Exercises] Pulse Oximetry [Recovery] Pulse Oximetry [Resting] Oxygen Delivery Method Room Air Oxygen Flow Rate Sepsis Recent Fever Within 48 Hours Sepsis New/Unexplained Change in Mental Status Sepsis Action Taken by Retirement Medications Current Medication List: was personally reviewed by me Laboratory Data Attestation: I reviewed the patient's lab results. 06/08/24 07:57 06/08/24 07:57 Lab Results 06/07/24 06/07/24 Range/Units 15:52 16:09 WBC 13.04 H (4.8-10.8) K/ul RBC 4.80 (4.70-6.10) M/uL Hgb 14.4 (14.0-18.0) g/dl Hct 42.8 (42.0-52.0) % MCV 89.2 (80.0-100.0) fL MCH 30.0 (25.0-34.0) pg MCHC 33.6 (32.0-36.0) g/dL RDW Std Deviation 45.6 (36.4-46.3) fL RDW Coeff of Kacey 14.2 (11.5-14.5) % Plt Count 231 (130-400) K/uL MPV 8.4 L (9.4-12.4) fL Immature Gran % (Auto) 0.7 % Neut % (Auto) 75.2 % Lymph % (Auto) 15.6 % [place] % (Auto) 4.8 % Eos % (Auto) 3.4 % Baso % (Auto) 0.3 % Neut # (Auto) 9.80 H (1.40-6.50) K/uL Lymph # (Auto) 2.04 (1.20-3.40) K/uL [place] # (Auto) 0.63 H (0.11-0.59) K/uL Eos # (Auto) 0.44 (0.00-0.50) K/uL Baso # (Auto) 0.04 (0.00-0.20) K/uL Immature Gran # (Auto) 0.09 (0.01-0.20) K/uL PT 11.0 (9.0-12.0) Seconds INR 1.0 (0.9-1.1) APTT 27 (21-31) Seconds PTT Ratio 1.0 Sodium 140 (136-145) mmol/L Potassium 3.9 (3.5-5.1) mmol/L Chloride 110 H (98-107) mmol/L Carbon Dioxide 22 (21-32) mmol/L Anion Gap 8 (3-11) BUN 20 (6-23) mg/dl Creatinine 1.01 (0.6-1.4) mg/dl Est Cr Clr Drug Dosing 102.7 ml/min eGFR 88.93 BUN/Creatinine Ratio 19.8 (10-20) Glucose 122 H (70-99(Fasting)) mg/dl Calcium 9.0 (8.6-10.3) mg/dl Total Bilirubin 0.5 (0.2-1.0) mg/dl AST 12 L (13-39) U/L ALT 18 (7-52) U/L Alkaline Phosphatase 65 (34-104) U/L Troponin I High Sens 11.2 (0-20) pg/ml Total Protein 7.5 (6.0-8.3) gm/dl Albumin 3.9 (3.4-5.0) gm/dl Globulin 3.6 (2.5-4.0) gm/dl Albumin/Globulin Ratio 1.1 (0.9-2) Adenovirus (PCR) Not Detected (NotDetected) B. pertussis DNA (PCR) Not Detected (NotDetected) B.parapertussis DNA PCR Not Detected (NotDetected) C. pneumoniae DNA (PCR) Not Detected (NotDetected) Coronavirus OC43 (PCR) Not Detected (NotDetected) Coronavirus HKU1 (PCR) Not Detected (NotDetected) Coronavirus 229E (PCR) Not Detected (NotDetected) SARS-CoV-2 (PCR) Not Detected (NotDetected) Coronavirus NL63 (PCR) Not Detected (NotDetected) Human Metapneumovir PCR Not Detected (NotDetected) Influenza Type A (PCR) Not Detected (NotDetected) Influenza Type B (PCR) Not Detected (NotDetected) M. pneumoniae (PCR) Not Detected (NotDetected) Parainfluenza 1 (PCR) Not Detected (NotDetected) Parainfluenza 2 (PCR) Not Detected (NotDetected) Parainfluenza 3 (PCR) Not Detected (NotDetected) Parainfluenza 4 (PCR) Not Detected (NotDetected) RSV (PCR) Not Detected (NotDetected) Entero/Rhino (PCR) Not Detected (NotDetected) Administered Medications Acetaminophen (Acetaminophen 325 Mg Tab) 650 mg PO Q4H PRN PRN Reason: Pain or Fever Stop: 07/07/24 21:11 Last Admin: 06/08/24 02:06 Dose: 650 mg Documented By: ZACARIAS Albuterol (Albuterol Hfa 8 Gm Inhaler) 2 puffs INH QID [facility] Stop: 07/07/24 21:11 Last Admin: 06/08/24 07:05 Dose: 2 puffs Documented By: Admin: 06/07/24 22:10 Dose: 2 puffs Documented By: ARTI Aspirin (Aspirin 81 Mg Ectab) [facility] Stop: 07/08/24 08:59 Last Admin: 06/08/24 09:01 Dose: 81 mg Documented By: CATHY Atorvastatin Calcium (Atorvastatin 40 Mg Tab) 40 mg PO [facility] Stop: 07/08/24 08:59 Last Admin: 06/08/24 09:01 Dose: 40 mg Documented By: CATHY Azithromycin (Azithromycin 250 Mg Tab) 500 mg PO [facility] Stop: 06/15/24 08:59 Last Admin: 06/08/24 09:01 Dose: 500 mg Documented By: CATHY Fenofibrate (Fenofibrate Nanocrystallized 145 Mg Tablet) 145 mg PO [facility] Stop: 07/08/24 08:59 Last Admin: 06/08/24 09:01 Dose: 145 mg Documented By: CATHY Guaifenesin (Guaifenesin 600 Mg Tabcr) 600 mg PO Q12 [facility] Stop: 07/07/24 21:11 Last Admin: 06/08/24 09:01 Dose: 600 mg Documented By: Admin: 06/07/24 22:11 Dose: 600 mg Documented By: ARTI Heparin Sodium (Porcine) (Heparin Sod 5,000 Unit/0.5 Ml Vial) 5,000 units SQ Q12 [facility] Stop: 07/07/24 21:11 Last Admin: 06/08/24 09:01 Dose: 5,000 units Documented By: Admin: 06/07/24 22:11 Dose: 5,000 units Documented By: ARTI Methylprednisolone 40 mg/ (Syringe) 0.64 mls @ 1.5 mls/min IV Q8H [facility] Stop: 07/07/24 21:59 Last Admin: 06/08/24 06:45 Dose: 1.5 mls/min Documented By: Admin: 06/07/24 22:32 Dose: 1.5 mls/min Documented By: ARTI Losartan Potassium (Losartan Potassium 25 Mg Tab) [facility] Stop: 07/08/24 09:14 Last Admin: 06/08/24 09:12 Dose: 25 mg Documented By: CATHY Montelukast Sodium (Montelukast Sodium 10 Mg Tablet) 10 mg PO QPM [facility] Stop: 07/07/24 21:11 Last Admin: 06/07/24 22:11 Dose: 10 mg Documented By: MMF Pantoprazole Sodium (Pantoprazole 40 Mg Tab) 40 mg PO [facility] Stop: 07/08/24 08:59 Last Admin: 06/08/24 09:01 Dose: 40 mg Documented By: CATHY Sertraline HCl (Sertraline Hcl 100 Mg Tablet) 100 mg PO [facility] Stop: 07/08/24 08:59 Last Admin: 06/08/24 09:01 Dose: 100 mg Documented By: CATHY Ticagrelor (Ticagrelor 90 Mg Tab) 90 mg PO BID [facility] Stop: 07/07/24 21:11 Last Admin: 06/08/24 09:01 Dose: 90 mg Documented By: Admin: 06/07/24 22:10 Dose: 90 mg Documented By: ARTI Trazodone HCl (Trazodone Hcl 50 Mg Tab) 150 mg PO [facility] Stop: 07/07/24 21:11 Last Admin: 06/07/24 22:30 Dose: 150 mg Documented By: MMF Discontinued Medications Albuterol (Albut/Ipratrop 3mg/0.5mg Neb 3 Ml Vial) 3 ml NEB NOW STA; Protocol Stop: 06/07/24 17:02 Last Admin: 06/07/24 17:07 Dose: 3 ml Documented By: MMF Azithromycin (Azithromycin 250 Mg Tab) 500 mg PO NOW ONE Stop: 06/07/24 18:55 Last Admin: 06/07/24 19:37 Dose: 500 mg Documented By: Ceftriaxone Sodium (Rocephin) 2,000 mg in 50 mls @ 100 mls/hr IV NOW STA Stop: 06/07/24 19:22 Last Infusion: 06/07/24 20:23 Dose: Infused Documented By: Admin: 06/07/24 19:37 Dose: 100 mls/hr Documented By: Ioversol (Optiray 320 125ml) 116 ml IV ONCE ONE Stop: 06/07/24 20:56 Last Admin: 06/07/24 20:56 Dose: 116 ml Documented By: KELLY Methylprednisolone (Methylprednisolone 125 Mg/2 Ml Vial) 125 mg IV NOW STA Stop: 06/07/24 17:02 Last Admin: 06/07/24 17:07 Dose: 125 mg Documented By: MMF Methylprednisolone (Methylprednisolone 125 Mg/2 Ml Vial) Confirm Administered Dose 125 mg .ROUTE .STK-MED ONE Stop: 06/08/24 06:30 Last Admin: 06/08/24 06:41 Dose: Not Given Documented By: EMB Imaging Data Radiologist's Impression: Chest CTA 06/07/24 20:24 Exam(s): CTA CHEST IV Amt: 116 ML OPTIRAY 320 EXAM: CT Angiography Chest With Intravenous Contrast CLINICAL HISTORY: Reason for exam: PE. TECHNIQUE: Axial computed tomographic angiography images of the chest with intravenous contrast. CTDI is 26.92 mGy and DLP is 875.94 mGy-cm. Automated exposure control was utilized for the study. A dose lowering technique was utilized adhering to the principles of ALARA. MIP reconstructed images were created and reviewed. COMPARISON: No relevant prior studies available. FINDINGS: Pulmonary arteries: No pulmonary embolism. Aorta: No acute findings. Normal caliber. No dissection. Lungs: Groundglass involving all lobes with an upper lung predominant distribution. Pleural space: Unremarkable. Heart: Unremarkable. Bones/joints: No acute fracture. Soft tissues: Unremarkable. Lymph nodes: Unremarkable. IMPRESSION: 1. No pulmonary embolism. 2. Groundglass involving all lobes with an upper lung predominant distribution. Differential includes infectious, inflammatory, or inhalation related etiologies. Electronically signed by: Carlos Vazquez MD 06/07/24 23:43 PM Discharge Plan Visit Data Chief Complaint: Shortness of Breath/Dyspnea Stated Complaint: RESP DISTRESS, LOW O2 ED Provider: Willie Mix Discharge Problem: Pneumonia involving right lung, BYRD (dyspnea on exertion) Patient Disposition: Admitted As Inpatient Discharge Instructions Interventions: ED Discharge Assessment Last Done: 06/07/24 21:12 Discharge Problem: Pneumonia involving right lung Qualifiers: Pneumonia type: due to unspecified organism Lung location: lower lobe of lung Q ualified Code(s): J18.9 - Pneumonia, unspecified organism
[2024-06-07] MEDS: ALBUT/IPRATROP 3MG/0.5MG NEB 3 ML VIAL NEB STA (17:07)
[2024-06-07] MEDS: methylPREDNISolone 125 MG/2 ML VIAL IV STA (17:07)
[2024-06-07 17:08] LABS: Partial Thromboplastin Time 27 Seconds (21-31)
[2024-06-07 17:11] LABS: Adenovirus PCR Not Detected (NotDetected); Bordetella parapertussis PCR Not Detected (NotDetected); Bordetella pertussis PCR Not Detected (NotDetected); Chlamydia pneumoniae PCR Not Detected (NotDetected); Coronavirus 229E PCR Not Detected (NotDetected); Coronavirus CoV-2 (COVID19)PCR Not Detected (NotDetected); Coronavirus HKU1 PCR Not Detected (NotDetected); Coronavirus NL63 PCR Not Detected (NotDetected); Coronavirus OC43PCR Not Detected (NotDetected); Human Metapneumovirus PCR Not Detected (NotDetected); Influenza A PCR Not Detected (NotDetected); Influenza B PCR Not Detected (NotDetected); Mycoplasma pneumoniae PCR Not Detected (NotDetected); Parainfluenza Virus 1 PCR Not Detected (NotDetected); Parainfluenza Virus 2 PCR Not Detected (NotDetected); Parainfluenza Virus 3 PCR Not Detected (NotDetected); Parainfluenza Virus 4 PCR Not Detected (NotDetected); Respiratory Syncytial VirusPCR Not Detected (NotDetected); Rhinovirus/Enterovirus PCR Not Detected (NotDetected)
[2024-06-07] MEDS: AZITHROMYCIN 250 MG TAB PO ONE (19:37)
[2024-06-07] MEDS: cefTRIAXone SODIUM 2,000 MG/50 ML BAG IV STA (19:37)
--- NOTE | 2024-06-07 20:43 | History & Physical Report ---
Date of Service June 07, 2024 Assessment & Plan (1) Acute on chronic respiratory failure with hypoxia: (2) Multifocal pneumonia: (3) Failure of outpatient treatment: (4) Coronary artery disease: Plan The patient is a 53-year-old male with past medical history including CAD, hyper tension, dyslipidemia, PTSD, chronic daily headache and recent hospitalization from 05/23-05/25/2024 for pneumonia, for which he was discharged on levofloxacin. He became more short of breath today, and was found to have a pulse ox of 86-87% at home. He had been seen recently by his PCP in the outpatient setting, and was started on steroids, without additional antibiotics at that time. He presents to the ED with concerns regarding persistent symptoms. #Acute on chronic respiratory failure with hypoxia/multifocal pneumonia- CT angiography shows groundglass opacities involving all lobes with an upper lung predominant distribution. 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 daily Methylprednisolone 100 provide milligrams IV given from the ED Methylprednisolone 40 mg IV every 8 hours AFB smears per protocol Sputum Gram stain and culture' Respiratory BioFire test negative Albuterol HFA 2 puffs 4 times daily Mucinex 60 mg p.o. every 12 hours MRSA swab ESR, WU, ANCA QuantiFERON testing Consult pulmonology CAD/hypertension- Continue dual antiplatelet therapy with aspirin and Brilinta most recent echo from 09/15/2023 with ejection fraction 60-65% Depression and anxiety- Continue sertraline and trazodone History of Present Illness Chief Complaint: The patient presents to the emergency department with persistence and worsening of cough, shortness of breath and dyspnea on exertion, that persisted beyond his admission from 05/23-05/25/2024 and return home. Primary Care Provider: RESHMA Barnett The patient is a 53-year-old male with past medical history including CAD, hypertension, dyslipidemia, PTSD, chronic daily headache and recent hospitalization from 05/23-05/25/2024 for pneumonia, for which he was discharged on levofloxacin. He became more short of breath today, and was found to have a pulse ox of 86-87% at home. He had been seen recently by his PCP in the outpatient setting, and was started on steroids, without additional antibiotics at that time. He presents to the ED today for further assessment. 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, and has been exposed to multiple chemicals in association with this line work Allergies Allergy/AdvReac Type Severity Reaction Status Date / Time hydromorphone Allergy Severe SHORTNESS Verified 05/29/24 09:27 OF BREATH Penicillins Allergy Severe ALLERGY TO Verified 05/29/24 09:27 [id number] doxycycline Allergy Intermediate BLISTERS/HI Verified 05/29/24 09:27 VES lamotrigine Allergy Intermediate tremors Verified 05/29/24 09:27 clindamycin AdvReac Intermediate NAUSEA Verified 05/29/24 09:27 eletriptan AdvReac Mild nausea/vomi Verified 05/29/24 09:27 ting Home Medications Medication Instructions Recorded Confirmed Type tadalafil 5 mg tablet 20 mg (4 x 5 mg) PO ONCE PRN 04/13/23 06/07/24 Rx sexual activity #30 tabs aspirin 81 mg tablet,delayed 81 mg PO QAM #90 tabs 09/07/23 06/07/24 Rx release nitroglycerin 0.4 mg sublingual 0.4 mg sublingual Q5M PRN chest 09/07/23 06/07/24 Rx tablet (Nitrostat) pain #1 btl losartan 25 mg tablet 25 mg PO QAM #90 tabs 11/03/23 06/07/24 Rx ticagrelor 90 mg tablet (Brilinta) 90 mg PO BID #180 tabs 11/03/23 06/07/24 Rx pantoprazole 40 mg tablet,delayed 40 mg PO QAM #90 tabs 01/14/24 06/07/24 Rx release ondansetron 4 mg disintegrating 4 mg PO Q6H PRN nausea and 02/02/24 06/07/24 Rx tablet vomiting #14 tabs sertraline 100 mg tablet (Zoloft) 100 mg PO QAM #90 tabs 03/31/24 06/07/24 Rx trazodone 150 mg tablet 150 mg PO HS #90 tabs 03/31/24 06/07/24 Rx atorvastatin 40 mg tablet 40 mg PO QAM 05/23/24 06/07/24 History fenofibrate nanocrystallized 145 145 mg PO QAM 05/23/24 06/07/24 History mg tablet montelukast 10 mg tablet 10 mg PO QPM 05/23/24 06/07/24 History Past Med/Surg History Problem List (Updated 06/08/24 @ 03:41 by Shawn Leija MD) Failure of outpatient treatment Acute on chronic respiratory failure with hypoxia Hypoxia Multifocal pneumonia Pneumonia (Acute) Migraine Coronary artery disease Epidermal cyst Sebaceous cyst De Quervain's tenosynovitis Depression (Chronic) Anxiety (Chronic) 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 David Shea ([facility] [place] [facility]) Dyslipidemia (Chronic) Hypertension (Chronic) Allergic rhinitis Post traumatic stress disorder (Chronic) Cervical spinal stenosis (Chronic) Thoracic degenerative disc disease (Chronic) Erectile dysfunction (Chronic) Chronic daily headache Medical History NSTEMI (non-ST elevated myocardial infarction) Viral pneumonia Abnormal CT scan, chest Chest pain Disc degeneration, lumbar Esophageal reflux Obstructive sleep apnea Migraine with aura Parainfluenza virus bronchitis Froin's syndrome Failed back surgical syndrome Degenerative disc disease Spinal stenosis Post traumatic stress disorder Anxiety and depression Hypertension Hyperlipidemia Sleep apnea Left lateral epicondylitis History of suicide attempt Status epilepticus (10/19/13) Surgical History History of colonoscopy (~09/2021) Family history of reaction to anesthesia Cyst S/P lumbar and lumbosacral fusion by anterior technique [place] teeth removed S/P cervical spinal fusion History of esophagogastroduodenoscopy (EGD) History of lumbar fusion Family History Grandfather (Maternal) Diabetes Mother FHx: skin cancer Sinus disorder Grandmother (Maternal) FHx: stomach cancer Brother Asthma Sinus disorder Father Cardiac disorder Lumbar disc disease Parkinson disease Aunt Diabetes Uncle Diabetes Grandmother Cancer Other Gallbladder disease Heart disease Hypertension Social History (Reviewed 12/23/24 @ 09:29 by CIRILO Wade Smoking Status: Never smoker Second Hand Exposure: No; Do You Dip or Chew Tobacco: No; Hx Alcohol Use: Yes Alcohol type: beer Alcohol Intake Frequency: 2-4 x/Month Hx Substance Use: No Preferred Language: Polish Communication Ability: Effective Visual Impairment: No Limitations Hearing Ability: Normal Rip Machine Operator Required: No Beliefs That Will Affect Care: None marital status: Current Living Situation: Spouse current occupational status: employed 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 How many Children do You have: 1 Feels Safe at Home: Yes Childhood Exposure to Second-Hand Smoke: No Diet: regular during the past year weight has: decreased > 10 lbs Dental Care, Regularly: Yes Physical Activity Frequency: Daily Seatbelt Use: always Sunscreen Use: No Assistive Devices: None Review of Systems Review of Systems: The patient denies chest pain, palpitations, lower extremity swelling, sore throat, fevers, chills, sweats, nausea, vomiting, diarrhea , constipation, abdominal pain, pelvic pain, blood in urine or stool, dysuria, urinary frequency or urgency, lightheadedness, dizziness, headache, memory loss, loss of consciousness, rash, abnormal bruising or bleeding, imbalance, focal or generalized weakness, numbness or tingling in arms or legs, generalized arthralgias or myalgias, back or neck pain, or night sweats. The review of systems is otherwise negative other than for that already noted above, and at least 10 systems have been reviewed. Physical Exam Physical Exam: The patient is awake, alert and oriented 3, well developed and well nourished, normocephalic and atraumatic, lying in bed and in no acute distress. HEENT--PERRL, EOMI, mucous membranes and oropharynx dry. Neck--supple. No JVD. No bruits. Thyroid normal, trachea midline, no adenopathy. Heart--normal S1 and S2. No murmurs, rubs or gallops. Lungs--scattered wheezes bilaterally. No respiratory distress, no accessory muscle use. Abdomen--normal bowel sounds and soft. Nontender. Nondistended, no hernias or masses, no organomegaly. Obese Extremities--No edema. Dermatologic--normal skin turgor, normal color, no abnormal lymph nodes, no rash. Neurologic--cranial nerves II through XII grossly intact. Rheumatologic--normal range of motion. Psychiatric--normal affect. Results & Data Results & Data Vital Signs (Past 12 Hours) Vital Signs Temp Pulse Pulse Resp BP BP Pulse Ox 06/07/24 19:00 80 21 139/86 92 06/07/24 18:42 06/07/24 17:30 77 06/07/24 17:13 71 19 94 06/07/24 17:13 61 26 H 135/60 97 06/07/24 17:13 06/07/24 15:48 36.2 C L 83 20 154/87 H 92 Pulse Ox Pulse Ox Pulse Ox O2 Del Method O2 Flow Rate 06/07/24 19:00 Room Air 06/07/24 18:42 91 93 93 Room Air 06/07/24 17:30 06/07/24 17:13 Room Air 06/07/24 17:13 Nebulizer 06/07/24 17:13 Room Air 94 06/07/24 15:48 Room Air Laboratory Results Laboratory Results WBC 13.04 K/ul (4.8-10.8) H 06/07/24 15:52 RBC 4.80 M/uL (4.70-6.10) 06/07/24 15:52 Hgb 14.4 g/dl (14.0-18.0) 06/07/24 15:52 Hct 42.8 % (42.0-52.0) 06/07/24 15:52 MCV 89.2 fL (80.0-100.0) 06/07/24 15:52 MCH 30.0 pg (25.0-34.0) 06/07/24 15:52 MCHC 33.6 g/dL (32.0-36.0) 06/07/24 15:52 RDW Std Deviation 45.6 fL (36.4-46.3) 06/07/24 15:52 RDW Coeff of Kacey 14.2 % (11.5-14.5) 06/07/24 15:52 Plt Count 231 K/uL (130-400) 06/07/24 15:52 MPV 8.4 fL (9.4-12.4) L 06/07/24 15:52 Immature Gran % (Auto) 0.7 % 06/07/24 15:52 Neut % (Auto) 75.2 % 06/07/24 15:52 Lymph % (Auto) 15.6 % 06/07/24 15:52 Kimball % (Auto) 4.8 % 06/07/24 15:52 Eos % (Auto) 3.4 % 06/07/24 15:52 Baso % (Auto) 0.3 % 06/07/24 15:52 Neut # (Auto) 9.80 K/uL (1.40-6.50) H 06/07/24 15:52 Lymph # (Auto) 2.04 K/uL (1.20-3.40) 06/07/24 15:52 Kimball # (Auto) 0.63 K/uL (0.11-0.59) H 06/07/24 15:52 Eos # (Auto) 0.44 K/uL (0.00-0.50) 06/07/24 15:52 Baso # (Auto) 0.04 K/uL (0.00-0.20) 06/07/24 15:52 Immature Gran # (Auto) 0.09 K/uL (0.01-0.20) 06/07/24 15:52 PT 11.0 Seconds (9.0-12.0) 06/07/24 15:52 INR 1.0 (0.9-1.1) 06/07/24 15:52 APTT 27 Seconds (21-31) 06/07/24 15:52 PTT Ratio 1.0 06/07/24 15:52 Sodium 140 mmol/L (136-145) 06/07/24 15:52 Potassium 3.9 mmol/L (3.5-5.1) 06/07/24 15:52 Chloride 110 mmol/L (98-107) H 06/07/24 15:52 Carbon Dioxide 22 mmol/L (21-32) 06/07/24 15:52 Anion Gap 8 (3-11) 06/07/24 15:52 BUN 20 mg/dl (6-23) 06/07/24 15:52 Creatinine 1.01 mg/dl (0.6-1.4) 06/07/24 15:52 Est Cr Clr Drug Dosing 102.7 ml/min 06/07/24 15:52 eGFR 88.93 06/07/24 15:52 BUN/Creatinine Ratio 19.8 (10-20) 06/07/24 15:52 Glucose 122 mg/dl (70-99(Fasting)) H 06/07/24 15:52 Calcium 9.0 mg/dl (8.6-10.3) 06/07/24 15:52 Total Bilirubin 0.5 mg/dl (0.2-1.0) 06/07/24 15:52 AST 12 U/L (13-39) L 06/07/24 15:52 ALT 18 U/L (7-52) 06/07/24 15:52 Alkaline Phosphatase 65 U/L (34-104) 06/07/24 15:52 Troponin I High Sens 11.2 pg/ml (0-20) 06/07/24 15:52 Total Protein 7.5 gm/dl (6.0-8.3) 06/07/24 15:52 Albumin 3.9 gm/dl (3.4-5.0) 06/07/24 15:52 Globulin 3.6 gm/dl (2.5-4.0) 06/07/24 15:52 Albumin/Globulin Ratio 1.1 (0.9-2) 06/07/24 15:52 Nasal Screen MRSA (PCR) Negative (Negative) 06/07/24 21:00 Adenovirus (PCR) Not Detected (NotDetected) 06/07/24 16:09 B. pertussis DNA (PCR) Not Detected (NotDetected) 06/07/24 16:09 B.parapertussis DNA PCR Not Detected (NotDetected) 06/07/24 16:09 C. pneumoniae DNA (PCR) Not Detected (NotDetected) 06/07/24 16:09 Coronavirus OC43 (PCR) Not Detected (NotDetected) 06/07/24 16:09 Coronavirus HKU1 (PCR) Not Detected (NotDetected) 06/07/24 16:09 Coronavirus 229E (PCR) Not Detected (NotDetected) 06/07/24 16:09 SARS-CoV-2 (PCR) Not Detected (NotDetected) 06/07/24 16:09 Coronavirus NL63 (PCR) Not Detected (NotDetected) 06/07/24 16:09 Human Metapneumovir PCR Not Detected (NotDetected) 06/07/24 16:09 Influenza Type A (PCR) Not Detected (NotDetected) 06/07/24 16:09 Influenza Type B (PCR) Not Detected (NotDetected) 06/07/24 16:09 M. pneumoniae (PCR) Not Detected (NotDetected) 06/07/24 16:09 Parainfluenza 1 (PCR) Not Detected (NotDetected) 06/07/24 16:09 Parainfluenza 2 (PCR) Not Detected (NotDetected) 06/07/24 16:09 Parainfluenza 3 (PCR) Not Detected (NotDetected) 06/07/24 16:09 Parainfluenza 4 (PCR) Not Detected (NotDetected) 06/07/24 16:09 RSV (PCR) Not Detected (NotDetected) 06/07/24 16:09 Entero/Rhino (PCR) Not Detected (NotDetected) 06/07/24 16:09 Impressions Chest X-Ray 06/07/24 15:52 EXAM: Radiograph of the Chest 1 View INDICATION: Chest pain. TECHNIQUE: Frontal view of the chest. COMPARISON: 05/23/2024 FINDINGS: Lungs and pleural spaces: Improved diffuse patchy airspace infiltrates and interstitial thickening. New patchy infiltrate in the right inferior hilum. Heart: Shape and configuration within normal limits allowing for technique. Mediastinum: Normal contour. Bones/joints: No fracture, erosion or dislocation. Soft tissues: No abnormality noted. No radiopaque foreign body noted. Upper abdomen: No abnormality noted. IMPRESSION: 1. Generalized improvement in diffuse interstitial and airspace infiltrates. 2. There is a small focal right infrahilar infiltrate. Developing pneumonia not excluded. ACT 112: Negative or not required by law. Electronically signed by Erin Burns 06-07-2024 4:30 PM Chest CTA 06/07/24 20:24 Exam(s): CTA CHEST IV Amt: 116 ML OPTIRAY 320 EXAM: CT Angiography Chest With Intravenous Contrast CLINICAL HISTORY: Reason for exam: PE. TECHNIQUE: Axial computed tomographic angiography images of the chest with intravenous contrast. CTDI is 26.92 mGy and DLP is 875.94 mGy-cm. Automated exposure control was utilized for the study. A dose lowering technique was utilized adhering to the principles of ALARA. MIP reconstructed images were created and reviewed. COMPARISON: No relevant prior studies available. FINDINGS: Pulmonary arteries: No pulmonary embolism. Aorta: No acute findings. Normal caliber. No dissection. Lungs: Groundglass involving all lobes with an upper lung predominant distribution. Pleural space: Unremarkable. Heart: Unremarkable. Bones/joints: No acute fracture. Soft tissues: Unremarkable. Lymph nodes: Unremarkable. IMPRESSION: 1. No pulmonary embolism. 2. Groundglass involving all lobes with an upper lung predominant distribution. Differential includes infectious, inflammatory, or inhalation related etiologies. Electronically signed by: Carlos Vazquez MD 06/07/24 23:43 PM Code Status & VTE Plan Code Status Full code VTE Prophylaxis Plan VTE Prophylaxis will be ordered: Yes PG Care Time/CCT Total # of Minutes Spent Total Time Spent with Patient: Total time spent is greater than 50% in coordination of care (as documented) at patient's floor/unit and/or counseling patient: Coding Level of Care Code 14429 INT INP/OBS CARE 3/75MIN Diagnoses Acute on chronic respiratory failure with hypoxia J96.21 Multifocal pneumonia J18.9 Failure of outpatient treatment Z78.9 Coronary artery disease I25.10
[2024-06-07] MEDS: OPTIRAY 320 125ml IV ONE (20:56)
[2024-06-07] MEDS ORDERED: ONDANSETRON 4 MG OD TAB PO PRN (21:12)
[2024-06-07] MEDS ORDERED: ALBUT/IPRATROP 3MG/0.5MG NEB 3 ML VIAL NEB PRN (21:12)
[2024-06-07] MEDS ORDERED: NITROGLYCERIN SL 0.4 MG/TAB TAB SL PRN (21:12)
[2024-06-07] MEDS ORDERED: methylPREDNISolone 10 mg/mL (For Ped Dose < 7mg) IV SCH (21:12)
[2024-06-07] MEDS ORDERED: NON-FORMULARY MEDICATION (Tadalafil 5 mg tablet) PO PRN (21:12)
[2024-06-07] MEDS: TICAGRELOR 90 MG TAB PO SCH (22:10)
[2024-06-07] MEDS: ALBUTEROL HFA 8 GM INHALER INH SCH (22:10)
[2024-06-07] MEDS: HEPARIN SOD 5,000 UNIT/0.5 ML VIAL SQ SCH (22:11)
[2024-06-07] MEDS: guaiFENesin 600 MG TABCR PO SCH (22:11)
[2024-06-07] MEDS: MONTELUKAST SODIUM 10 MG TABLET PO SCH (22:11)
[2024-06-07] MEDS: traZODone HCL 50 MG TAB PO SCH (22:30)
[2024-06-07] MEDS: methylPREDNISolone 40 MG in SYRINGE 0 ML IV SCH (22:32)
--- NOTE | 2024-06-07 23:44 | CT Scan Report ---
Exam(s): CTA CHEST IV Amt: 116 ML OPTIRAY 320 EXAM: CT Angiography Chest With Intravenous Contrast CLINICAL HISTORY: Reason for exam: PE. TECHNIQUE: Axial computed tomographic angiography images of the chest with intravenous contrast. CTDI is 26.92 mGy and DLP is 875.94 mGy-cm. Automated exposure control was utilized for the study. A dose lowering technique was utilized adhering to the principles of ALARA. MIP reconstructed images were created and reviewed. COMPARISON: No relevant prior studies available. FINDINGS: Pulmonary arteries: No pulmonary embolism. Aorta: No acute findings. Normal caliber. No dissection. Lungs: Groundglass involving all lobes with an upper lung predominant distribution. Pleural space: Unremarkable. Heart: Unremarkable. Bones/joints: No acute fracture. Soft tissues: Unremarkable. Lymph nodes: Unremarkable. IMPRESSION: 1. No pulmonary embolism. 2. Groundglass involving all lobes with an upper lung predominant distribution. Differential includes infectious, inflammatory, or inhalation related etiologies. Electronically signed by: Carlos Vazquez MD 06/07/24 23:43 PM
[2024-06-08] MEDS: ACETAMINOPHEN 325 MG TAB PO PRN (02:06)
[2024-06-08] MEDS: methylPREDNISolone 125 MG/2 ML VIAL ONE (06:41)
[2024-06-08 08:54] LABS: Basophils # (auto) 0.01 K/uL (0.00-0.20); Basophils % (auto) 0.1 %; Hematocrit (blood only) 41.7 % (42.0-52.0); Immature Granulocytes % (auto) 0.8 %; Lymphocytes # (auto) 1.27 K/uL (1.20-3.40); Lymphocytes % (auto) 10.5 %; Mean Corpuscular Hemoglobin 29.6 pg (25.0-34.0); Mean Corpuscular Hgb Conc 33.6 g/dL (32.0-36.0); Mean Corpuscular Volume 88.2 fL (80.0-100.0); Mean Platelet Volume 8.6 fL (9.4-12.4); Monocytes # (auto) 0.31 K/uL (0.11-0.59); Monocytes % (auto) 2.6 %; Neutrophils # (auto) 10.45 K/uL (1.40-6.50); Platelet Count 236 K/uL (130-400); Red Blood Count 4.73 M/uL (4.70-6.10); White Blood Count 12.14 K/ul (4.8-10.8)
[2024-06-08 09:00] LABS: Albumin Globulin Ratio 1.1 (0.9-2); BUN Creatinine Ratio 23.4 (10-20); Bilirubin,Total 0.5 mg/dl (0.2-1.0); Calcium 9.5 mg/dl (8.6-10.3); Creatinine Clr Calc Pharmacy 110.3 ml/min; Globulin 3.7 gm/dl (2.5-4.0); Magnesium 1.9 mg/dl (1.7-2.4); Total Protein 7.7 gm/dl (6.0-8.3)
[2024-06-08] MEDS: PANTOprazole 40 MG TAB PO SCH (09:01)
[2024-06-08] MEDS: FENOFIBRATE NANOCRYSTALLIZED 145 MG TABLET PO SCH (09:01)
[2024-06-08] MEDS: ASPIRIN 81 MG ECTAB PO SCH (09:01)
[2024-06-08] MEDS: SERTRALINE HCL 100 MG TABLET PO SCH (09:01)
[2024-06-08] MEDS: ATORVASTATIN 40 MG TAB PO SCH (09:01)
[2024-06-08] MEDS: AZITHROMYCIN 250 MG TAB PO SCH (09:01)
[2024-06-08] MEDS: LOSARTAN POTASSIUM 25 MG TAB PO SCH (09:12)
--- NOTE | 2024-06-08 12:40 | Pulmonary Consultation ---
Date of Consultation June 08, 2024 Assessment & Plan (1) Sleep apnea: (2) Acute respiratory failure with hypoxia: (3) Abnormal CT scan, chest: Plan CT chest 06/07/2024 personally reviewed: Diffuse groundglass opacities appreciated bilaterally especially in the upper lobes Cardiomegaly No significant mediastinal lymphadenopathy 2D echo 09/15/2023: EF 60-65%, RV normal in size and function -- Acute hypoxic respiratory failure with abnormal chest CT Persistent groundglass opacities appreciated bilaterally especially in the upper lobes The groundglass opacities were not present on the CAT scan done January 2025 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 Differential for diffuse groundglass opacities could be infectious versus noninfectious Infection includes PJP especially in somebody who is immunosuppressed, mycoplasma is also a possibility but the patient was treated with levofloxacin which should have been treated. Atypical fungal infections Noninfectious origin includes NSIP like pattern, diffuse alveolar hemorrhage. Respiratory BioFire was negative twice last 1 being 06/07/2024 Absolute eosinophil count 440 on 06/07/2024 No lymphopenia -- Social cigar smoking Last time he smoked was summer 2023 --DILLAN Uses oral airway device Plan: Autoimmune workup to be done including RF, anti-CCP, KIMBERLY level For bronchoscopy tomorrow, patient is on Brilinta and aspirin for history of stenting September 2023. Will avoid transbronchial biopsies, aim would be to do BAL Continue with Solu-Medrol And finish the course of azithromycin while in the hospital Follow-up sputum culture Please note the above document was generated using voice recognition software. It may contain grammatical, syntax or spelling errors.Any formal questions or concerns about the content, text or information contained within the body of this dictation should be directly addressed to the provider for clarification. History of Present Illness Attending Physician: Ignacio Holland MD History of Present Illness 53-year-old male present to the hospital with complaints of shortness of breath and hypoxia Past medical history: Coronary artery disease s/p stent and 09/28, PTSD, hypertension, dyslipidemia Pulmonary consulted for abnormal chest CT Patient was recently in the hospital 05/23-05/[address] and pneumonia, he was given levofloxacin at that time At the time of examination patient was saturating 94-95% 2 L nasal cannula He was not in any respiratory distress. He says that he has been having issues with his breathing since around 05/21/2024. 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 Allergies Allergy/AdvReac Type Severity Reaction Status Date / Time hydromorphone Allergy Severe SHORTNESS Verified 05/29/24 09:27 OF BREATH Penicillins Allergy Severe ALLERGY TO Verified 05/29/24 09:27 [id number] doxycycline Allergy Intermediate BLISTERS/HI Verified 05/29/24 09:27 VES lamotrigine Allergy Intermediate tremors Verified 05/29/24 09:27 clindamycin AdvReac Intermediate NAUSEA Verified 05/29/24 09:27 eletriptan AdvReac Mild nausea/vomi Verified 05/29/24 09:27 ting Home Medications Medication Instructions Recorded Confirmed Type tadalafil 5 mg tablet 20 mg (4 x 5 mg) PO ONCE PRN 04/13/23 06/07/24 Rx sexual activity #30 tabs aspirin 81 mg tablet,delayed 81 mg PO QAM #90 tabs 09/07/23 06/07/24 Rx release nitroglycerin 0.4 mg sublingual 0.4 mg sublingual Q5M PRN chest 09/07/23 06/07/24 Rx tablet (Nitrostat) pain #1 btl losartan 25 mg tablet 25 mg PO QAM #90 tabs 11/03/23 06/07/24 Rx ticagrelor 90 mg tablet (Brilinta) 90 mg PO BID #180 tabs 11/03/23 06/07/24 Rx pantoprazole 40 mg tablet,delayed 40 mg PO QAM #90 tabs 01/14/24 06/07/24 Rx release ondansetron 4 mg disintegrating 4 mg PO Q6H PRN nausea and 02/02/24 06/07/24 Rx tablet vomiting #14 tabs sertraline 100 mg tablet (Zoloft) 100 mg PO QAM #90 tabs 03/31/24 06/07/24 Rx trazodone 150 mg tablet 150 mg PO HS #90 tabs 03/31/24 06/07/24 Rx atorvastatin 40 mg tablet 40 mg PO QAM 05/23/24 06/07/24 History fenofibrate nanocrystallized 145 145 mg PO QAM 05/23/24 06/07/24 History mg tablet montelukast 10 mg tablet 10 mg PO QPM 05/23/24 06/07/24 History Patient History Medical History NSTEMI (non-ST elevated myocardial infarction) Viral pneumonia Abnormal CT scan, chest Chest pain Disc degeneration, lumbar Esophageal reflux Obstructive sleep apnea Migraine with aura Parainfluenza virus bronchitis 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 believed r/t the Froin's syndrome. treated at [facility]. HOSPITALIZED 2013 AND 2015 "BELIEVES RELATED TO GABAPENTIN NOT BROKEN DOWN" Surgical History History of colonoscopy (~09/2021) Family history of reaction to anesthesia BROTHER>NAUSEA Cyst REMOVED FROM BACK S/P lumbar and lumbosacral fusion by anterior technique 2003 [place] teeth removed S/P cervical spinal fusion GOOD ROM History of esophagogastroduodenoscopy (EGD) History of lumbar fusion TOTAL 5 LUMBAR SURGERIES (4 POSTERIOR/1 ANTERIOR>LAST LUMBAR) Family History Grandfather (Maternal) Diabetes Mother FHx: skin cancer Sinus disorder Grandmother (Maternal) FHx: stomach cancer Brother Asthma Sinus disorder Father Cardiac disorder Lumbar disc disease Parkinson disease Aunt Diabetes Uncle Diabetes Grandmother Cancer Other Gallbladder disease Heart disease Hypertension Social History Smoking Status: Never smoker Second Hand Exposure: No; Do You Dip or Chew Tobacco: No; Hx Alcohol Use: Yes Alcohol type: beer Alcohol Intake Frequency: 2-4 x/Month Hx Substance Use: No Preferred Language: Bahamian Communication Ability: Effective Visual Impairment: No Limitations Hearing Ability: Normal Biometrics Instructor Required: No Beliefs That Will Affect Care: None marital status: Current Living Situation: Spouse and Family Current Living Situation Comment: & Son current occupational status: employed 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 How many Children do You have: 1 Other Information That Helps Us Care for You: No Feels Safe at Home: Yes Safety Concerns: Feels Safe At This Time Childhood Exposure to Second-Hand Smoke: No Diet: regular during the past year weight has: decreased > 10 lbs Dental Care, Regularly: Yes Physical Activity Frequency: Daily Seatbelt Use: always Sunscreen Use: No Assistive Devices: None Review of Systems 2 Review of Systems: All systems reviewed & are unremarkable except as noted in HPI & below Physical Exam 2 Physical Exam: Constitutional: No acute distress HEENT: EOMI, PERRLA Respiratory system: Decreased air entry bilaterally, no wheeze, no rhonchi positive diffuse crackles appreciated bilaterally, questionable Velcro CVS: S1-S2 positive, no murmurs or gallops Abdomen: Soft, nontender, nondistended, positive bowel sounds x4, obese Extremities: +2 pulses bilaterally radialis/ dorsalis pedis, no cyanosis, no edema Neuro: Awake alert oriented x3 Psych: Normal mood and affect G/U: No Glass Skin: no rashes, warm and dry Lymphatic: no cervical or axillary lymphadenopathy Results & Data Results & Data Vital Signs (Past 12 Hours) Vital Signs Temp Pulse Pulse Resp BP Pulse Ox O2 Del Method 06/08/24 11:37 91 H 18 96 Oxymask 06/08/24 09:17 Oxymask 06/08/24 08:53 36.6 C 85 23 117/79 95 Oxymask 06/08/24 07:59 89 06/08/24 07:06 81 20 97 Oxymask 06/08/24 06:41 82 22 126/66 95 Oxymask 06/08/24 06:23 95 Oxymask 06/08/24 05:13 68 06/08/24 04:13 90 Nasal Cannula, Oxymask 06/08/24 04:00 89 L Nasal Cannula 06/08/24 03:46 Nasal Cannula 06/08/24 03:46 72 30 H 124/66 91 Nasal Cannula 06/08/24 01:52 79 20 126/68 92 Nasal Cannula O2 Flow Rate 06/08/24 11:37 2 06/08/24 09:17 3 06/08/24 08:53 3 06/08/24 07:59 06/08/24 07:06 6 06/08/24 06:41 6 06/08/24 06:23 8 06/08/24 05:13 06/08/24 04:13 4 06/08/24 04:00 3 06/08/24 03:46 3 06/08/24 03:46 3 06/08/24 01:52 3 Laboratory Results 06/08/24 07:57 06/08/24 07:57 PG Care Time/CCT Total # of Minutes Spent Total Time Spent with Patient: Total time spent is greater than 50% in coordination of care (as documented) at patient's floor/unit and/or counseling patient: Coding Level of Care Code 31126 INT INP/OBS CARE 75MIN Diagnoses Sleep apnea G47.30 Acute respiratory failure with hypoxia J96.[address] scan, chest R93.89
--- NOTE | 2024-06-08 12:40 | Electrocardiogram Report ---
Test Reason : Blood Pressure : */* mmHG Vent. Rate : 73 BPM Atrial Rate : 73 BPM P-R Int : 138 ms QRS Dur : 86 ms QT Int : 392 ms P-R-T Axes : 47 73 64 degrees QTcB Int : 431 ms Normal sinus rhythm Normal ECG When compared with ECG of 23-May-2024 10:40, No significant change was found Confirmed by Reza Thompson ([id number]) on 06/08/2024 12:39:32 PM Referred By: REFERRED SELF Confirmed By: Reza Thompson
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
[2024-06-08] MEDS: ALBUTEROL HFA 8 GM INHALER INH SCH (20:03)
[2024-06-08] MEDS ORDERED: ALBUTEROL HFA 8 GM INHALER INH PRN (21:23)
[2024-06-09 08:05] LABS: Basophils # (auto) 0.01 K/uL (0.00-0.20); Basophils % (auto) 0.1 %; Eosinophils # (auto) 0.01 K/uL (0.00-0.50); Eosinophils % (auto) 0.1 %; Hematocrit (blood only) 43.1 % (42.0-52.0); Hemoglobin 14.7 g/dl (14.0-18.0); Immature Granulocytes # (auto) 0.14 K/uL (0.01-0.20); Immature Granulocytes % (auto) 0.9 %; Lymphocytes # (auto) 1.42 K/uL (1.20-3.40); Lymphocytes % (auto) 9.6 %; Mean Corpuscular Hemoglobin 30.1 pg (25.0-34.0); Mean Corpuscular Hgb Conc 34.1 g/dL (32.0-36.0); Mean Corpuscular Volume 88.3 fL (80.0-100.0); Mean Platelet Volume 8.7 fL (9.4-12.4); Monocytes # (auto) 0.53 K/uL (0.11-0.59); Monocytes % (auto) 3.6 %; Neutrophils # (auto) 12.74 K/uL (1.40-6.50); Neutrophils % (auto) 85.7 %; Platelet Count 269 K/uL (130-400); Red Blood Count 4.88 M/uL (4.70-6.10); White Blood Count 14.85 K/ul (4.8-10.8)
[2024-06-09 08:11] LABS: Albumin Globulin Ratio 1.1 (0.9-2); Albumin Level 4.2 gm/dl (3.4-5.0); BUN Creatinine Ratio 28.2 (10-20); Bilirubin,Total 0.5 mg/dl (0.2-1.0); Calcium 9.7 mg/dl (8.6-10.3); Creatinine Clr Calc Pharmacy 98.7 ml/min; Globulin 3.8 gm/dl (2.5-4.0); Magnesium 2.2 mg/dl (1.7-2.4); Potassium 4.6 mmol/L (3.5-5.1)
--- NOTE | 2024-06-09 09:32 | Pulmonology Progress Note ---
Date of Service June 09, 2024 Assessment & Plan (1) Sleep apnea: (2) Acute respiratory failure with hypoxia: (3) Abnormal CT scan, chest: Plan CT chest 06/07/2024 personally reviewed: Diffuse groundglass opacities appreciated bilaterally especially in the upper lobes Cardiomegaly No significant mediastinal lymphadenopathy 2D echo 09/15/2023: EF 60-65%, RV normal in size and function -- Acute hypoxic respiratory failure with abnormal chest CT Persistent groundglass opacities appreciated bilaterally especially in the upper lobes The groundglass opacities were not present on the CAT scan done January 2025 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 Differential for diffuse groundglass opacities could be infectious versus noninfectious Infection includes PJP especially in somebody who is immunosuppressed, mycoplasma is also a possibility but the patient was treated with levofloxacin which should have been treated. Atypical fungal infections Noninfectious origin includes NSIP like pattern, diffuse alveolar hemorrhage. Respiratory BioFire was negative twice last 1 being 06/07/2024 Absolute eosinophil count 440 on 06/07/2024 No lymphopenia -- Social cigar smoking Last time he smoked was summer 2023 --DILLAN Uses oral airway device Plan: For bronchoscopy today Follow-up autoimmune workup Continue with Solu-Medrol. Complete the course of antibiotic Follow-up sputum culture Risk and benefit of the procedure explained to the patient in depth. Patient understands and wants to go ahead with the procedures Consent signed, witnessed and put in the chart Please note the above document was generated using voice recognition software. It may contain grammatical, syntax or spelling errors.Any formal questions or concerns about the content, text or information contained within the body of this dictation should be directly addressed to the provider for clarification. Admission and Anticipated Discharge Date Admission Date: June 07, 2024 Subjective Patient seen and examined at bedside. No acute distress, no adverse events overnight Patient says he is feeling better At the time of examination patient's was also in the room He says his coughing has decreased He was saturating 97% on room air Denied any chest pain No nausea or vomiting Review of Systems 2 Review of Systems: All systems reviewed & are unremarkable except as noted in Subjective Physical Exam 2 Physical Exam: Constitutional: No acute distress HEENT: EOMI, PERRLA Respiratory system: Decreased air entry bilaterally, no wheeze, no rhonchi, positive crackles bilateral lower lobes, have improved compared to yesterday CVS: S1-S2 positive, no murmurs or gallops Abdomen: Soft, nontender, nondistended, positive bowel sounds x4, obese Extremities: +2 pulses bilaterally radialis/ dorsalis pedis, no cyanosis, no edema Neuro: Awake alert oriented x3 Psych: Normal mood and affect G/U: No Glass Skin: no rashes, warm and dry Lymphatic: no cervical or axillary lymphadenopathy Results & Data Results & Data Vital Signs (Past 12 Hours) Vital Signs Temp Pulse Pulse Resp BP Pulse Ox O2 Del Method 06/09/24 07:45 36.5 C 63 18 122/79 92 Room Air 06/09/24 03:43 36.5 C 51 L 18 105/57 L 93 Room Air 06/08/24 23:32 Nasal Cannula 06/08/24 23:20 67 06/08/24 22:45 36.7 C 68 19 111/58 L 93 Nasal Cannula O2 Flow Rate 06/09/24 07:45 06/09/24 03:43 06/08/24 23:32 1 06/08/24 23:20 06/08/24 22:45 1 Laboratory Results 06/09/24 07:30 06/09/24 07:30 PG Care Time/CCT Total # of Minutes Spent Total Time Spent with Patient: Total time spent is greater than 50% in coordination of care (as documented) at patient's floor/unit and/or counseling patient: Coding Level of Care Code 21946 SUB INP/OBS CARE 3/50MIN Diagnoses Sleep apnea G47.30 Acute respiratory failure with hypoxia J96.[address] scan, chest R93.89
[2024-06-09] MEDS: fentaNYL citrate PF 100 MCG/2 ML VIAL ONE ×2 (13:38→13:39)
[2024-06-09] MEDS: MIDAZOLAM HCL 5 MG/ML 1 ML VIAL ONE ×2 (13:39)
--- NOTE | 2024-06-09 14:22 | XRay Report ---
XR chest 1V portable CLINICAL HISTORY: post Bronch COMPARISON STUDY: Chest radiograph and chest CT June 07, 2024. FINDINGS: Postoperative findings within the spine are incidentally noted. There is no pneumothorax po st bronchoscopy. Cardiomediastinal silhouette is stable. Mild interstitial thickening persists and is better depicted on recent chest CT. IMPRESSION: No pneumothorax status post bronchoscopy. ACT 112: Negative or not required by law. Electronically signed by: Bradley Messer M.D. 06/09/2024 2:20 PM
--- NOTE | 2024-06-09 15:20 | Procedure Note ---
Procedure Note: Bronchoscopy Procedure PREOPERATIVE DIAGNOSIS: Multiple pulmonary infiltrates with abnormal chest CT POSTOPERATIVE DIAGNOSIS: Bilateral pulmonary infiltrates with abnormal chest CT, friable mucosa PROCEDURE PERFORMED: Flexible fiberoptic bronchoscopy with BAL COMPLICATIONS: None. INDICATION: Rule out infection PROCEDURE: After obtaining an informed consent, the patient was brought to the Bronchoscopy Suite. The patient had appropriate oxygen, blood pressure, heart rate, and respiratory rate monitoring applied and monitored continuously throughout the procedure. Supplemental oxygen via nasal cannula as per nursing records was applied to the nasopharynx with adequate saturations achieved. Topical anesthesia with nebulized 1% lidocaine was achieved. Subsequent to this, the patient was premedicated with 6 mg of midazolam and 150 mcg of fentanyl. Start time 1311 Stop time 1324 Upper Airway: The oropharynx and larynx were well visualized and showed normal mucosa There was normal vocal cord motion without masses or lesions. Additional topical anesthesia with 1% lidocaine was applied to the trachea and alyson. The trachea appeared normal.The bronchoscope was then advanced through the alyson, which was sharp. The scope was then advanced into the right main stem and each segment, subsegement in the right upper lobe, right middle lobe and right lower lobe were visualized. There was minimal amount of clear secretion which was suctioned out. There were no other findings including evidence of mass, anatomic distortions, or hemorrhage. The bronchoscope was subsequently withdrawn and advanced into the left mainstem. Again, each segment and subsegment was well visualized. No specific masses or other lesions were identified throughout the tracheobronchial tree on the left. There was minimal amount of clear secretion which was suctioned out The bronchoscope was then wedged in the left upper lobe anterior segment and bronchoalveolar lavage samples were obtained. 80 ml of saline was instilled and 40 ml of fluid was aspirated back.The bronchoscope was withdrawn and the area was suctioned clear. The bronchoscope was then wedged in the right middle lobe and bronchoalveolar lavage samples were obtained. 60 ml of saline was instilled and 30 ml of fluid was aspirated back.The bronchoscope was withdrawn and the area was suctioned clear. The mucosa on the right side especially the right middle lobe was very friable. It bled very easily when the patient was coughing. The bronchoscope was then withdrawn to the mainstem. The area was suctioned clear. The bronchoscope was then withdrawn. The patient tolerated the procedure well without evidence of desaturation or complications. Bronchoalveolar lavage samples were sent for cell count, Gram stain and bacterial culture, AFB culture and smear, fungal culture and smear, cryptococcus, histoplasma, coccidioidal antibody and cytology. Recommendations: Follow-up micro and cytology Follow-up chest x-ray Please note the above document was generated using voice recognition software. It may contain grammatical, syntax or spelling errors.Any formal questions or concerns about the content, text or information contained within the body of this dictation should be directly addressed to the provider for clarification. [facility] [place] Procedure Codes (Charges) Pulmonary/Thoracic Procedure 1: Pulmonary and Thoracic: 60851 Dx bronchoscopy/BAL Sedation/Anesthesia Procedure 1: Sedation/Anesthesia: 13628 Mod Sedation by the same physician;Init15 Min Child Age 5 & Up Procedure 2: Sedation/Anesthesia: 78025 Mod Sedation by the same physician; Ea Add [id number] Minutes
[2024-06-09 17:44] LABS: Eosinophil Body Fluid Man 1 %; Fluid Mono/Macrophage 9 %; Lymphocyte Body Fluid Man 4 %; Neutrophil Body Fluid Man 86 %
--- NOTE | 2024-06-09 18:03 | Hospitalist Progress Note ---
Date of Service June 09, 2024 Assessment & Plan (1) Acute on chronic respiratory failure with hypoxia: (2) Multifocal pneumonia: (3) Coronary artery disease: Plan The patient is a 53-year-old male with past medical history including CAD, hypertension, dyslipidemia, PTSD, chronic daily headache and recent hospitalization from 05/23-05/25/2024 for pneumonia, for which he was discharged on levofloxacin. He became more short of breath today, and was found to have a pulse ox of 86-87% at home. He had been seen recently by his PCP in the outpatient setting, and was started on steroids, without additional antibiotics at that time. He presents to the ED with concerns regarding persistent symptoms. #Acute on chronic respiratory failure with hypoxia/multifocal pneumonia- Possible but unlikely Respiratory tuberculosis CT angiography shows groundglass opacities involving all lobes with an upper lung predominant distribution. 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 Procal negative. Pulmonary consulted - differential infectious vs noninfectious - autoimmune workup: RF, anti-CCP, sandra level pending - s/p bronchoscopy - cell count, Gram stain and bacterial culture, AFB culture and smear, fungal culture and smear, cryptococcus, histoplasma, enmanuel cidioidal antibody and cytology pending AFB smears per protocol Sputum culture: normal richard Pending: ESR, WU, ANCA, QuantiFERON testing Patient continues to improve will plan for outpatient pulm follow up. CAD/hypertension- Continue dual antiplatelet therapy with aspirin and Brilinta most recent echo from 09/15/2023 with ejection fraction 60-65% Continue losartan - BPs acceptable Depression and anxiety- Continue sertraline and trazodone Dispo: continued inpatient stay, hopeful for discharge tomorrow DVT proh: Heparin SQ q12 Family updated at bedside 06/09 Admission and Anticipated Discharge Date Admission Date: June 07, 2024 Supervising Physician Co-Signing Physician Notes Attending Attestation - Chart reviewed, care plan d/w YUNG Hoffmann. I agree w/ the castle components of her documentation. Appreciate pulmonary consultation and recs. s/p bronchoscopy today - results/findings from the procedure noted. Ignacio Holland MD Subjective patient seen sitting up in the chair, present at bedside. States that he is feeling much betterstates that Dr. Roldan told him that he could potentially go home today but he would feel much more comfortable if he stayed overnight just to make sure he does not bounce back. Is having some throat irritation after the bronchoscopy but overall feeling well telemetry - SR 60s Review of Systems Review of Systems: All systems reviewed & are unremarkable except as noted in Subjective Physical Exam Physical Exam: General: NAD, VS as above, sitting up in the chair Resp: normal respiratory effort, lungs clear to auscultation, on room air CV: RRR, no murmur, Extremities: Moves all extremities, no edema Neuro: A&O x3, Skin: intact, no lesions noted Results & Data Results & Data Vital Signs (Past 12 Hours) Vital Signs Temp Pulse Pulse Resp BP BP Pulse Ox 06/09/24 16:28 97.9 F 60 18 116/71 94 06/09/24 13:57 80 16 132/69 93 06/09/24 13:52 86 22 119/67 94 06/09/24 13:42 77 25 H 120/82 92 06/09/24 13:28 96 H 26 H 161/85 H 97 06/09/24 13:24 100 H 24 127/91 95 06/09/24 13:20 80 12 135/70 96 06/09/24 13:14 81 26 H 131/98 93 06/09/24 13:07 66 18 131/98 100 06/09/24 11:54 81 14 136/89 94 06/09/24 11:21 98.1 F 61 18 129/75 95 06/09/24 10:36 06/09/24 07:45 97.7 F 63 18 122/79 92 O2 Del Method O2 Flow Rate 06/09/24 16:28 Room Air 06/09/24 13:57 Room Air 06/09/24 13:52 Oxymask 2 06/09/24 13:42 Room Air 06/09/24 13:28 Room Air, Oxymask 6 06/09/24 13:24 Oxymask 6 06/09/24 13:20 Oxymask 6 06/09/24 13:14 Oxymask 6 06/09/24 13:07 Room Air 06/09/24 11:54 Room Air 06/09/24 11:21 Room Air 06/09/24 10:36 Room Air 06/09/24 07:45 Room Air Laboratory Results cbc, chemistry, mag reviewwed PG Care Time/CCT Total # of Minutes Spent Total Time Spent with Patient: Total time spent is greater than 50% in coordination of care (as documented) at patient's floor/unit and/or counseling patient: Coding Level of Care Code 97153 SUB INP/OBS CARE 2/35MIN Diagnoses Acute on chronic respiratory failure with hypoxia J96.21 Multifocal pneumonia J18.9 Coronary artery disease I25.10
[2024-06-09 19:12] LABS: Fluid Mono/Macrophage 10 %; Lymphocyte Body Fluid Man 4 %; Neutrophil Body Fluid Man 86 %
[2024-06-10 07:56] LABS: Basophils # (auto) 0.03 K/uL (0.00-0.20); Basophils % (auto) 0.2 %; Eosinophils # (auto) 0.01 K/uL (0.00-0.50); Eosinophils % (auto) 0.1 %; Hematocrit (blood only) 43.6 % (42.0-52.0); Immature Granulocytes # (auto) 0.11 K/uL (0.01-0.20); Immature Granulocytes % (auto) 0.9 %; Lymphocytes % (auto) 12.1 %; Mean Corpuscular Hemoglobin 29.8 pg (25.0-34.0); Mean Corpuscular Hgb Conc 34.4 g/dL (32.0-36.0); Mean Corpuscular Volume 86.7 fL (80.0-100.0); Mean Platelet Volume 8.5 fL (9.4-12.4); Monocytes # (auto) 0.55 K/uL (0.11-0.59); Monocytes % (auto) 4.4 %; Neutrophils # (auto) 10.17 K/uL (1.40-6.50); Neutrophils % (auto) 82.3 %; Platelet Count 250 K/uL (130-400); RDW Coefficient of Variation 13.7 % (11.5-14.5); RDW Standard Deviation 42.9 fL (36.4-46.3); Red Blood Count 5.03 M/uL (4.70-6.10); White Blood Count 12.37 K/ul (4.8-10.8)
[2024-06-10 08:39] VITALS: PULSE 85; RESP 18; TEMP 98.1; O2SAT 95
--- NOTE | 2024-06-10 08:42 | XRay Report ---
XR chest 1V portable CLINICAL HISTORY: f/u COMPARISON STUDY: Chest CT June 07, 2024. Chest radiograph June 09, 2024. FINDINGS: Postoperative findings within the spine are incidentally noted. There is no pneumothorax or pleural effusion. Cardiomediastinal silhouette is stable. Mild interstitial thickening persists. IMPRESSION: No significant change in mild nonspecific interstitial thickening. ACT 112: Negative or not required by law. Electronically signed by: Bradley Messer M.D. 06/10/2024 8:40 AM
[2024-06-10 09:10] LABS: Bilirubin,Total 0.6 mg/dl (0.2-1.0); Calcium 9.6 mg/dl (8.6-10.3); Magnesium 2.4 mg/dl (1.7-2.4)
[2024-06-10 09:16] LABS: Albumin Globulin Ratio 1.1 (0.9-2); BUN Creatinine Ratio 35.2 (10-20); Creatinine Clr Calc Pharmacy 96.1 ml/min; Globulin 3.8 gm/dl (2.5-4.0)
[2024-06-10 10:01] LABS: Albumin Level 4.2 gm/dl (3.4-5.0); Potassium 4.1 mmol/L (3.5-5.1)
--- NOTE | 2024-06-10 10:39 | Discharge Summary ---
Discharge Summary Date of Service June 10, 2024 Principal Dx & Hospital Course #1 = Principal Diagnosis (1) Acute on chronic respiratory failure with hypoxia: (2) Multifocal pneumonia: (3) Coronary artery disease: Plan The patient is a 53-year-old male with past medical history including CAD, hypertension, dyslipidemia, PTSD, chronic daily headache and recent hospitalization from 05/23-05/25/2024 for pneumonia, for which he was discharged on levofloxacin. He became more short of breath today, and was found to have a pulse ox of 86-87% at home. He had been seen recently by his PCP in the outpatient setting, and was started on steroids, without additional antibiotics at that time. He presents to the ED with concerns regarding persistent symptoms. #Acute on chronic respiratory failure with hypoxia/multifocal pneumonia- Possible but unlikely Respiratory tuberculosis CT angiography shows groundglass opacities involving all lobes with an upper lung predominant distribution. 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 pulmonary was consulted differential of infectious versus noninfectious etiology, autoimmune workup and hypersensitivity panel pending. TB is on the differential but considerably less likely. Russel underwent bronchoscopy with Dr. Roldan on 06/09, specimens from that are pending. Received azithromycin and IV methylprednisolone while inpatient, discharged on azithromycin and prednisone prescription per Dr. Roldan recommendations. discharge to home on room air, has outpatient Pulm f/u scheduled 06/20 . Pending testing: - autoimmune workup: RF, anti-CCP, sandra level pending - s/p bronchoscopy - cell count, Gram stain and bacterial culture, AFB culture and smear, fungal culture and smear, cryptococcus, histoplasma, coccidioidal antibody and cytology pending - WU, ANCA, QuantiFERON testing - hypersensitivity Pneumo Pannel CAD/hypertension- Continue dual antiplatelet therapy with aspirin and Brilinta most recent echo from 09/15/2023 with ejection fraction 60-65% Continue losartan - BPs acceptable Depression and anxiety- Continue sertraline and trazodone Dispo: discharge to home with pulm follow up Family updated at bedside 06/09 Notes For Next Care Provider multiple testing pending - see above Medication Changes From Visit prednisone taper 1 additional dose azithromycin Admission HPI Per Admitting Provider The patient is a 53-year-old male with past medical history including CAD, hypertension, dyslipidemia, PTSD, chronic daily headache and recent hospitalization from 05/23-05/25/2024 for pneumonia, for which he was discharged on levofloxacin. He became more short of breath today, and was found to have a pulse ox of 86-87% at home. He had been seen recently by his PCP in the outpatient setting, and was started on steroids, without additional antibiotics at that time. He presents to the ED today for further assessment. 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, and has been exposed to multiple chemicals in association with this line work Discharge Exam General: NAD, VS as above, sitting up in the chair, appears well Resp: normal respiratory effort, lungs clear to auscultation, on room air CV: RRR, no murmur, Extremities: Moves all extremities, no edema Neuro: A&O x3, Skin: intact, no lesions noted Discharge Plan Discharge Items Patient Disposition: Home - Self-Care Reason For Visit: HAP, FAILURE OF OUTPATIENT TREATMENT Discharge Diagnosis: acute hypoxic respiratory failure - resolved Activity: As commented below Activity Comment: increase as tolerated Weightbearing: Full weightbearing Non-emergency contact: Primary Care Provider and [employer] Call non-emergency contact if: you have any medication questions, your symptoms worsen and your temperature is above 101 Follow-up/Referrals: Joshua Roldan MD, FCCP [Physician] - (keep appointment as scheduled ) Ana Rosa Murguia CRNP [Primary Care Provider] - (patient blank make PCP follow up 7-10 days ) Diet: Heart Healthy Addtl Attending Provider Instructions: Mr. Lazcano, You were hospitalized after worsening difficulty breathing at home, thankfully you have greatly improved with IV antibiotics and steroids. There was concerns on why you keep having these symptoms and there is an extensive workup pending for infectious vs inflammatory vs autoimmune causes. Dr. Roldan should be able to go over all these results with you at your follow up appointment. Since you were under investigation for Tuberculosis, you should remain in isolation until that testing comes back (mainly the Quanterferon Gold testing or the Acid Fast smear from your bronchoscopy). You can view these test results on your [facility] portal. I expect that they would result early next week - someone from infection prevention should also be contacting you. No changes to your home medications. CONTACT YOUR PRIMARY CARE PROVIDER/PULMONOLOGY if you experience any of the following: Shortness of breath or difficulty breathing Fevers or chills Feeling tired with normal activity or experiencing dizziness or fainting Difficulty following your treatment plan, or difficulty taking medications CALL 911 OR GO TO THE EMERGENCY DEPARTMENT if you experience any of the following: Severe abdominal pain or nausea/vomiting Severe chest pain, or chest pain that radiates (moves) to your jaw or arm Sudden, severe shortness of breath or difficulty breathing Thank you for allowing us to participate in your care. Alla Hoffmann PA-C Pending Studies at Discharge: Yes (bronch testing, hypersensitivity panel, quantiferon, WU, ANCA ) Stand-Alone Forms: My [facility] [employer] ( H[employer] ), Smoking Cessation Medications and DC Order Prescriptions: New prednisone 20 mg tablet See Taper PO DAILY Qty: 9 0RF Taper: Taper, Blank 40 mg DAILY for 3 Days 20 mg DAILY for 3 Days Continued pantoprazole 40 mg tablet,delayed release (DR/EC) 40 mg PO QAM Qty: 90 3RF tadalafil 5 mg tablet 20 mg PO ONCE PRN (Reason: sexual activity) Qty: 30 11RF losartan 25 mg tablet 25 mg PO QAM Qty: 90 3RF Brilinta 90 mg tablet 90 mg PO BID Qty: 180 2RF sertraline [Zoloft] 100 mg tablet 100 mg PO QAM Qty: 90 3RF trazodone 150 mg tablet 150 mg PO HS Qty: 90 3RF aspirin 81 mg Tablet,Delayed Release (Dr/Ec) 81 mg PO QAM Qty: 90 3RF nitroglycerin [Nitrostat] 0.4 mg Tablet, Sublingual 0.4 mg sublingual Q5M PRN (Reason: chest pain) Qty: 1 0RF atorvastatin 40 mg tablet 40 mg PO QAM montelukast 10 mg tablet 10 mg PO QPM Rx Instructions: TAKE 1 TABLET DAILY IN THE EVENING fenofibrate nanocrystallized 145 mg tablet 145 mg PO QAM Discharge Orders: Discharge Order (Routine); Ordered 06/10/24 Ordered By: Alla Hoffmann Admission Data Admit Date/Time: 06/07/24 20:42 Attending Provider: Ignacio Holland Admit Provider: Shawn Leija Primary Care Provider: Ana Rosa Murguia Other Providers: Joshua Roldan Other Interventions: Discharge Summary Assessment (RN) Last Done: 06/10/24 12:18 Hospital Stay Data Consultations 06/07/24 18:44 ED Decision to Admit Stat 06/07/24 21:12 Consult Pulmonology Routine Procedures Performed Operation Date: 06/09/24 12:00 Actual Procedures p Bronchoscopy Respiratory - Joshua Roldan MD, [facility] Diagnostic Imagining Performed Chest X-Ray 06/07/24 15:52 EXAM: Radiograph of the Chest 1 View INDICATION: Chest pain. TECHNIQUE: Frontal view of the chest. COMPARISON: 05/23/2024 FINDINGS: Lungs and pleural spaces: Improved diffuse patchy airspace infiltrates and interstitial thickening. New patchy infiltrate in the right inferior hilum. Heart: Shape and configuration within normal limits allowing for technique. Mediastinum: Normal contour. Bones/joints: No fracture, erosion or dislocation. Soft tissues: No abnormality noted. No radiopaque foreign body noted. Upper abdomen: No abnormality noted. IMPRESSION: 1. Generalized improvement in diffuse interstitial and airspace infiltrates. 2. There is a small focal right infrahilar infiltrate. Developing pneumonia not excluded. ACT 112: Negative or not required by law. Electronically signed by Erin Burns 06-07-2024 4:30 PM Chest CTA 06/07/24 20:24 Exam(s): CTA CHEST IV Amt: 116 ML OPTIRAY 320 EXAM: CT Angiography Chest With Intravenous Contrast CLINICAL HISTORY: Reason for exam: PE. TECHNIQUE: Axial computed tomographic angiography images of the chest with intravenous contrast. CTDI is 26.92 mGy and DLP is 875.94 mGy-cm. Automated exposure control was utilized for the study. A dose lowering technique was utilized adhering to the principles of ALARA. MIP reconstructed images were created and reviewed. COMPARISON: No relevant prior studies available. FINDINGS: Pulmonary arteries: No pulmonary embolism. Aorta: No acute findings. Normal caliber. No dissection. Lungs: Groundglass involving all lobes with an upper lung predominant distribution. Pleural space: Unremarkable. Heart: Unremarkable. Bones/joints: No acute fracture. Soft tissues: Unremarkable. Lymph nodes: Unremarkable. IMPRESSION: 1. No pulmonary embolism. 2. Groundglass involving all lobes with an upper lung predominant distribution. Differential includes infectious, inflammatory, or inhalation related etiologies. Electronically signed by: Carlos Vazquez MD 06/07/24 23:43 PM Chest X-Ray 06/09/24 13:32 XR chest 1V portable CLINICAL HISTORY: post Bronch COMPARISON STUDY: Chest radiograph and chest CT June 07, 2024. FINDINGS: Postoperative findings within the spine are incidentally noted. There is no pneumothorax post bronchoscopy. Cardiomediastinal silhouette is stable. Mild interstitial thickening persists and is better depicted on recent chest CT. IMPRESSION: No pneumothorax status post bronchoscopy. ACT 112: Negative or not required by law. Electronically signed by: Bradley Messer M.D. 06/09/2024 2:20 PM Chest X-Ray 06/10/24 07:00 XR chest 1V portable CLINICAL HISTORY: f/u COMPARISON STUDY: Chest CT June 07, 2024. Chest radiograph June 09, 2024. FINDINGS: Postoperative findings within the spine are incidentally noted. There is no pneumothorax or pleural effusion. Cardiomediastinal silhouette is stable. Mild interstitial thickening persists. IMPRESSION: No significant change in mild nonspecific interstitial thickening. ACT 112: Negative or not required by law. Electronically signed by: Bradley Messer M.D. 06/10/2024 8:40 AM Pending Results Patient Have Any Pending Studies at Discharge: Yes (bronch testing, hypersensitivity panel, quantiferon, WU, ANCA ) Discharge Instructions Given to Patient (Per Discharging Provider) Mr. Lazcano, You were hospitalized after worsening difficulty breathing at home, thankfully you have greatly improved with IV antibiotics and steroids. There was concerns on why you keep having these symptoms and there is an extensive workup pending for infectious vs inflammatory vs autoimmune causes. Dr. Roldan should be able to go over all these results with you at your follow up appointment. Since you were under investigation for Tuberculosis, you should remain in isolation until that testing comes back (mainly the Quanterferon Gold testing or the Acid Fast smear from your bronchoscopy). You can view these test results on your [employer] portal. I expect that they would result early next week - someone from infection prevention should also be contacting you. No changes to your home medications. CONTACT YOUR PRIMARY CARE PROVIDER/PULMONOLOGY if you experience any of the following: Shortness of breath or difficulty breathing Fevers or chills Feeling tired with normal activity or experiencing dizziness or fainting Difficulty following your treatment plan, or difficulty taking medications CALL 911 OR GO TO THE EMERGENCY DEPARTMENT if you experience any of the following: Severe abdominal pain or nausea/vomiting Severe chest pain, or chest pain that radiates (moves) to your jaw or arm Sudden, severe shortness of breath or difficulty breathing Thank you for allowing us to participate in your care. Alla Hoffmann PA-C Supervising Physician Co-Signing Physician Notes Attending Attestation and Discharge Note: Chart reviewed, discharge care plan d/w YUNG Hoffmann. I agree w/ the castle components of her discharge documentation. Of note - I did not perform a bedside evaluation or physical exam on day of discharge. 53yo male with h/o CAD, HTN, headaches, hyperlipidemia, and recent admission from 05/23/24 to 05/25/24 at [facility] for pneumonia who presented with hypoxia and ongoing dyspnea. CT chest with b/l infiltrates, particularly the b/l upper lobes. Differential for his illness included typical vs atypical infections vs noninfectious (ie - autoimmune disease) causes vs other. Seen by [facility] Pulmonology - underwent bronchoscopy. During the stay extensive autoimmune w/u was dispatched. Biofire resp panel was negative. Bronchoscopy bacterial culture was negative. PJP PCR, histoplasma PCR, etc were dispatched from bronch secretions, etc. AFB from the bronch along with quantiferon gold test were both pending at discharge. He will finish a course of prednisone & zithromax. f/u with [facility] Pulmonary needed shortly after discharge. Patient was in airborne isolation as precautionary measure while ruling out M.Tb. He was counseled to isolate at home until his quantiferon gold test had returned. Patient was stable in room air at time of discharge home. Ignacio Holland MD Total Time Total Time Spent Total Time Spent (In Minutes): Time spent day of discharge 35 minutes including direct patient care, medication reconciliation, documentation, review of labs and images, and coordination of care. Coding Level of Care Code 94604 INP/OBS DISCH >30 MIN Diagnoses Acute on chronic respiratory failure with hypoxia J96.21 Multifocal pneumonia J18.9 Coronary artery disease I25.10
--- NOTE | 2024-06-10 10:48 | Pulmonology Progress Note ---
Date of Service June 10, 2024 Assessment & Plan (1) Sleep apnea: (2) Acute respiratory failure with hypoxia: (3) Abnormal CT scan, chest: Plan CT chest 06/07/2024 personally reviewed: Diffuse groundglass opacities appreciated bilaterally especially in the upper lobes Cardiomegaly No significant mediastinal lymphadenopathy 2D echo 09/15/2023: EF 60-65%, RV normal in size and function -- Acute hypoxic respiratory failure with abnormal chest CT Persistent groundglass opacities appreciated bilaterally especially in the upper lobes The groundglass opacities were not present on the CAT scan done January 2025 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 Differential for diffuse groundglass opacities could be infectious versus noninfectious Infection includes PJP especially in somebody who is immunosuppressed, mycoplasma is also a possibility but the patient was treated with levofloxacin which should have been treated. Atypical fungal infections Noninfectious origin includes NSIP like pattern, diffuse alveolar hemorrhage. S/p bronchoscopy 06/09/2024, friable mucosa which bled easily. No signs of diffuse alveolar hemorrhage. Respiratory BioFire was negative twice last 1 being 06/07/2024 Absolute eosinophil count 440 on 06/07/2024 No lymphopenia -- Social cigar smoking Last time he smoked was summer 2023 --DILLAN Uses oral airway device Plan: For bronchoscopy today Follow-up autoimmune workup, hypersensitivity panel Okay to transition Solu-Medrol to prednisone 40 mg for 4 days followed by 20 mg for 4 days Complete the course of azithromycin Follow-up bron cultures Outpatient follow-up with hi Case was discussed with primary team Please note the above document was generated using voice recognition software. It may contain grammatical, syntax or spelling errors.Any formal questions or concerns about the content, text or information contained within the body of this dictation should be directly addressed to the provider for clarification. Admission and Anticipated Discharge Date Admission Date: June 07, 2024 Subjective Patient seen and examined at bedside. No acute distress, notable chills overnight Denies any significant cough, no hemoptysis He did underwent bronchoscopy yesterday. No nausea or vomiting Overall he said he is feeling much better Was saturating 95-96% on room air Review of Systems 2 Review of Systems: All systems reviewed & are unremarkable except as noted in Subjective Physical Exam 2 Physical Exam: Constitutional: No acute distress HEENT: EOMI, PERRLA Respiratory system: Decreased air entry bilaterally, no wheeze, no rhonchi, minimal crackles bilateral lower lobes CVS: S1-S2 positive, no murmurs or gallops Abdomen: Soft, nontender, nondistended, positive bowel sounds x4, obese Extremities: +2 pulses bilaterally radialis/ dorsalis pedis, no cyanosis, no edema Neuro: Awake alert oriented x3 Psych: Normal mood and affect G/U: No Glass Skin: no rashes, warm and dry Lymphatic: no cervical or axillary lymphadenopathy Results & Data Results & Data Vital Signs (Past 12 Hours) Vital Signs Temp Pulse Pulse Resp BP BP Pulse Ox 06/10/24 08:35 36.7 C 85 18 145/78 H 95 06/10/24 03:03 36.5 C 55 L 16 120/71 93 06/09/24 23:41 71 O2 Del Method 06/10/24 08:35 Room Air 06/10/24 03:03 Room Air 06/09/24 23:41 Laboratory Results 06/10/24 07:23 06/10/24 07:23 PG Care Time/CCT Total # of Minutes Spent Total Time Spent with Patient: Total time spent is greater than 50% in coordination of care (as documented) at patient's floor/unit and/or counseling patient: Coding Level of Care Code 40372 SUB INP/OBS CARE 2/35MIN Diagnoses Sleep apnea G47.30 Acute respiratory failure with hypoxia J96.[address] scan, chest R93.89
[2024-06-10 12:19] VITALS: BP 120/71
[2024-06-11 14:08] LABS: Quantiferon Mitogen-NIL 6.68 IU/mL; Quantiferon NIL 0.01 IU/mL; Quantiferon TB Gold Plus NEGATIVE (NEGATIVE)
[2024-06-11 21:32] LABS: ANCA Screen Negative (Negative); Anti Nuclear Antibody Screen NEGATIVE (NEGATIVE); Myeloperoxidase Ab <1.0 AI (<1.0); Proteinase-3 AB <1.0 AI (<1.0)
[2024-06-16 11:47] LABS: Alternaria Alternata IgG <13.6 mcg/mL (<13.6); Aureobasidium pullulans IgG <13.6 mcg/mL (<13.6); Saccharopolyspora rectivir Ab NOT DETECTED (NOT DETECTED); Thermoactinomyces candidus Ab NOT DETECTED (NOT DETECTED)
[2024-06-17 03:12] LABS: Angiotensin Converting Enzyme 16 U/L (9-67); Anti Cardiolipin Ab IgG <2.0 GPL-U/mL; Anti Cardiolipin Ab IgM <2.0 MPL-U/mL; Anti Nuclear Antibody Screen NEGATIVE (NEGATIVE); Anti-Centromere Ab <1.0 NEG AI (<1.0 NEG); Anti-SS-A <1.0 NEG AI (<1.0 NEG); Anti-SS-B <1.0 NEG AI (<1.0 NEG); Chromatin Antibody <1.0 NEG AI (<1.0 NEG); Complement C3 136 mg/dL (82-185); Cyclic Citrullinated Pep IgG <16 UNITS; DNA ds Crithidia NEGATIVE (NEGATIVE); Microsomal Ab <1 IU/mL (<9); RNP Antibody <1.0 NEG AI (<1.0 NEG); Rheumatoid Factor 10 IU/mL (<14); Sm Antibody <1.0 NEG AI (<1.0 NEG)
--- NOTE | 2024-06-20 08:49 | Pre Anesthesia Assessment ---
Date of Service June 09, 2024 Pre Sedation Assessment Pre-Sedation Airway Assessment Smoking Status: Never smoker Hx Sleep Apnea: No Hx Difficult Intubation: No Short, Thick Neck: No Thyromental Distance: > or= 3.5 Finger Breadths Oral Cavity: + WNL Mallampati Class: II ASA: ASA2 NPO Status Date of Last Intake of Fluids: 06/08/24 Time of Last Intake of Fluids: 21:00 Date of Last Intake of Solid Food: 06/08/24 Time of Last Intake of Solid Foods: 21:00 Procedure Planning Contraindications for Sedation: none Current Medications Reviewed: Yes Notes The planned sedation has been discussed with the patient. Informed Consent was obtained. I have identified the patient, determined the appropriateness of sedation and have assessed the patient immediately prior to the procedure. All medicine(s) and interventions are by my order.
--- NOTE | 2024-06-20 08:50 | Post Anesthesia Assessment ---
Date of Service June 09, 2024 Post Sedation Assessment Recovery Score Activity: Moves 4 extremities Respiration: Deep Breath/Cough Circulation: +/-20% PreAnes Value Consciousness: Fully Awake Oxygen Saturation: > 92% On Room Air Post Anesthesia Score: 10 Discharge Sedation Level of Care: Fast Track Phase II Post Sedation Plan On clinical assessment, the patient appears to have tolerated the sedation without complications. Patient is recovering as anticipated. Patient will continue to be monitored by nursing and may be discharged when sedation discharge criteria are met per below protocol. Upon Completions of procedure up to 15 minutes continue every 5 minute vital signs and the P.A.R. score; then discharge to a Phase I or Fast Track to Phase II per the following guidelines: * Discharge Patient to appropriate Phase II area if PAR is 8 or greater or return to pre- procedure baseline. The post - procedure orders will be as directed. * If PAR score is less than 8 or not return to pre-procedure baseline then patient will follow Phase I monitoring till PAR is reached for Phase II. The Phase I may be done in procedure room or may call to secure a Phase I area. * If naloxone or flumazenil are used for reversal, hold in Phase I for continued monitoring from when last reversal dose was given for a minimum of 60 minutes or longer pending the nurse and/or physician discretion of patient condition before discharge to Phase II. Please call the Sedation Physician to re-evaluate and complete post-note for discharge to Phase II area. Do NOT discharge from procedure sedation or Phase 1 until post- sedation evaluation note is complete by procedure /sedation MD Sedation Discharge Instructions to be given to the patient at discharge to home.
== END 2024-06-10 12:19 | disposition home or self-care (01) | DRG 193 ==
LOC: ED 15:45 → INTOOBSV 20:42 → SUATTDRO 20:42 → EDINP 20:42 → 2S 06-08 15:08

== ENCOUNTER 2024-09-27 16:35 | Observation (INO) ==
[2024-09-27] MEDS: KETOROLAC 30 MG/ML VIAL IV STA (16:51)
[2024-09-27] MEDS: ACETAMINOPHEN 1,000 MG/100 ML VIAL IV STA (16:51)
--- NOTE | 2024-09-27 16:54 | Emergency Department Note ---
History of Present Illness General Chief complaint: Back Injury/Pain Stated complaint: BACK PAIN Time Seen by Provider: 09/27/24 16:37 History of Present Illness This is a 54-year-old male presenting to the emergency department via EMS from home for evaluation of back pain. Patient has had several back and spine surgeries over the years, numbering 6 in total. Patient has had slow escalation of pain over the past few weeks and saw Dr. Mejía of [facility] last week. He is scheduled for MRI next month. He states that yesterday he attempted to stand up from his work bench and had acute left-sided pain in his back down his left leg. This is worse than his day-to-day pain and not relieved with [id number] analgesics. Patient was not able to sleep well last night, and today he was not able to get out of his chair and stand. He states that he waited until his got home from work today, and she tried to help him out of a recliner. The patient was not able to get out of the recliner, prompting calling the EMS. Patient did receive 10 mg IV morphine and route, and this did not significantly prove his pain. He has not had changes in bowel or bladder control. No fevers or chills. Movement worsens the discomfort. Home Medications Medication Instructions Recorded Confirmed Type tadalafil 5 mg tablet 20 mg (4 x 5 mg) PO ONCE PRN 04/13/23 09/27/24 Rx sexual activity #30 tabs aspirin 81 mg tablet,delayed 81 mg PO QAM #90 tabs 09/07/23 09/27/24 Rx release nitroglycerin 0.4 mg sublingual 0.4 mg sublingual Q5M PRN chest 09/07/23 09/27/24 Rx tablet (Nitrostat) pain #1 btl losartan 25 mg tablet 25 mg PO QAM #90 tabs 11/03/23 09/27/24 Rx pantoprazole 40 mg tablet,delayed 40 mg PO QAM #90 tabs 01/14/24 09/27/24 Rx release sertraline 100 mg tablet (Zoloft) 100 mg PO QAM #90 tabs 03/31/24 09/27/24 Rx trazodone 150 mg tablet 150 mg PO HS #90 tabs 03/31/24 09/27/24 Rx atorvastatin 40 mg tablet 40 mg PO QAM 05/23/24 09/27/24 History fenofibrate nanocrystallized 145 145 mg PO QAM 05/23/24 09/27/24 History mg tablet montelukast 10 mg tablet 10 mg PO QPM 05/23/24 09/27/24 History ticagrelor 90 mg tablet (Brilinta) 90 mg PO BID #180 tabs 07/12/24 09/27/24 Rx albuterol sulfate 90 mcg/actuation 2 puff inhalation Q6H PRN 08/21/24 09/27/24 Rx aerosol inhaler Shortness Of Breath Or Wheezing #18 grams levocetirizine 5 mg tablet (Xyzal) 5 mg PO PM 09/27/24 09/27/24 History Allergies Allergy/AdvReac Type Severity Reaction Status Date / Time hydromorphone Allergy Severe SHORTNESS Verified 09/27/24 19:39 OF BREATH Penicillins Allergy Severe ALLERGY TO Verified 09/27/24 19:39 [id number] doxycycline Allergy Intermediate BLISTERS/HI Verified 09/27/24 19:39 VES lamotrigine Allergy Intermediate tremors Verified 09/27/24 19:39 clindamycin AdvReac Intermediate NAUSEA Verified 09/27/24 19:39 eletriptan AdvReac Mild nausea/vomi Verified 09/27/24 19:39 ting Past Med/Surg History Problem List (Updated 09/28/24 @ 00:13 by Bert Taylor PA-C) Ambulatory dysfunction (Acute) Low back pain (Acute) Intractable low back pain (Acute) Hypotension Degenerative disc disease Spinal stenosis Intractable low back pain Cigar smoker Allergic rhinitis with postnasal drip Chronic cough Abnormal CT scan, chest Acute respiratory failure with hypoxia BYRD (dyspnea on exertion) (Acute) Pneumonia involving right lung (Acute) Failure of outpatient treatment Acute on chronic respiratory failure with hypoxia Multifocal pneumonia Pneumonia (Acute) Migraine Coronary artery disease Epidermal cyst Sebaceous cyst De Quervain's tenosynovitis Depression (Chronic) Anxiety (Chronic) 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 David Shea [place] Dyslipidemia (Chronic) Hypertension (Chronic) Allergic rhinitis Post traumatic stress disorder (Chronic) Cervical spinal stenosis (Chronic) Thoracic degenerative disc disease (Chronic) Erectile dysfunction (Chronic) Chronic daily headache Medical History Hypoxia NSTEMI (non-ST elevated myocardial infarction) Viral pneumonia Chest pain Disc degeneration, lumbar Esophageal reflux Obstructive sleep apnea Migraine with aura Parainfluenza virus bronchitis Froin's syndrome FOLLOWED BY DR. SHEA Failed back surgical syndrome Degenerative disc disease Spinal stenosis Post traumatic stress disorder Anxiety and depression FOLLOWS COUNSELOR 1 X PER MONTH Hypertension Hyperlipidemia Sleep apnea no device Left lateral epicondylitis History of suicide attempt Status epilepticus (10/19/13) No problems since, had mini-seizures r/t "body shutting down". believed r/t the Froin's syndrome. treated at [facility]. HOSPITALIZED 2013 AND 2016 "BELIEVES RELATED TO GABAPENTIN NOT BROKEN DOWN" Surgical History History of colonoscopy (~09/2021) Family history of reaction to anesthesia BROTHER>NAUSEA Cyst REMOVED FROM BACK S/P lumbar and lumbosacral fusion by anterior technique 2003 [place] teeth removed S/P cervical spinal fusion GOOD ROM History of esophagogastroduodenoscopy (EGD) History of lumbar fusion TOTAL 5 LUMBAR SURGERIES (4 POSTERIOR/1 ANTERIOR>LAST LUMBAR) Family History Grandfather (Maternal) Diabetes Mother FHx: skin cancer Sinus disorder Grandmother (Maternal) FHx: stomach cancer Brother Asthma Sinus disorder Father Cardiac disorder Lumbar disc disease Parkinson disease Aunt Diabetes Uncle Diabetes Grandmother Cancer Other Gallbladder disease Heart disease Hypertension Social History Smoking Status: Never smoker Second Hand Exposure: No; Do You Dip or Chew Tobacco: No; Hx Alcohol Use: Yes Alcohol type: beer Alcohol Intake Frequency: 2-4 x/Month Hx Substance Use: No Preferred Language: Trinidadian Communication Ability: Effective Visual Impairment: No Limitations Hearing Ability: Normal Curriculum Development Coordinator Required: No Beliefs That Will Affect Care: None marital status: Current Living Situation: Spouse and Family Current Living Situation Comment: & Son current occupational status: employed 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 How many Children do You have: 1 Feels Safe at Home: Yes Childhood Exposure to Second-Hand Smoke: No Diet: regular during the past year weight has: decreased > 10 lbs Dental Care, Regularly: Yes Physical Activity Frequency: Daily Seatbelt Use: always Sunscreen Use: No Assistive Devices: None Review of Systems A total of 10 systems reviewed and were otherwise negative Physical Exam Vital Signs Vital Signs - 24 hr 09/27/24 16:42 09/27/24 16:57 09/27/24 18:26 Temperature 36.9 C Temperature Source Oral Pulse Rate 80 76 Pulse Rate [Apical] 72 Respiratory Rate 18 18 Respiratory Effort / Characteristics Non-Labored Non-Labored Spontaneous Respiratory Depth Normal Normal Respiratory Pattern Regular Regular Blood Pressure 110/77 Blood Pressure [Left Arm] 106/63 Blood Pressure Mean 88 Blood Pressure Mean [Left Arm] 77 Blood Pressure Position Lying Blood Pressure Position [Left Arm] Pulse Oximetry 98 97 Oxygen Delivery Method Room Air Room Air Sepsis Recent Fever Within 48 Hours No Sepsis New/Unexplained Change in Mental Status No Sepsis Action Taken by Nursing No Action Required 09/27/24 20:00 09/27/24 22:30 09/27/24 23:26 Temperature Temperature Source Pulse Rate Pulse Rate [Apical] 63 60 60 Respiratory Rate 18 18 19 Respiratory Effort / Characteristics Non-Labored Spontaneous Non-Labored Spontaneous Non-Labored Spontaneous Respiratory Depth Normal Normal Normal Respiratory Pattern Regular Regular Regular Blood Pressure Blood Pressure [Left Arm] 125/78 97/58 L 101/49 L Blood Pressure Mean Blood Pressure Mean [Left Arm] 93 71 66 Blood Pressure Position Blood Pressure Position [Left Arm] Lying Pulse Oximetry 94 94 97 Oxygen Delivery Method Room Air Room Air Room Air Sepsis Recent Fever Within 48 Hours Sepsis New/Unexplained Change in Mental Status Sepsis Action Taken by Nursing VITALS: Vitals are noted on the nurse's note and reviewed by myself. Vital signs stable. GENERAL: Well-developed, well-nourished, white male, who is in no acute distress and resting comfortably. Patient is cooperative with the examination. HEAD: Normocephalic atraumatic. HEART: Regular rate and rhythm without murmurs gallops or rubs. LUNGS: Clear to auscultation bilaterally without wheezes, rales or rhonchi. No retractions or accessory muscle use. BACK: Reproducible tenderness in the low back diffusely. Positive straight leg raise on the left. No saddle paresthesias. MUSCULOSKELETAL: No muscle atrophy, erythema, or edema noted. Full range of motion in all extremities. NEURO: Patient was alert and oriented to person place and time. CN II through XII grossly intact. Course Administered Medications Lactated Ringer's (Lr) 1,000 mls @ 100 mls/hr IV .Q10H SOCRATES Stop: 09/28/24 09:44 Last Admin: 09/28/24 00:01 Dose: 100 mls/hr Documented By: Discontinued Medications Dexamethasone Sodium Phosphate (DexamethasonePf 10 Mg/Ml Vial) 10 mg IV NOW ONE Stop: 09/27/24 18:07 Last Admin: 09/27/24 18:27 Dose: 10 mg Documented By: CASEY Diazepam (Diazepam 5 Mg/Ml 10ml Vial) 10 mg IV NOW STA Stop: 09/27/24 22:32 Last Admin: 09/27/24 22:46 Dose: 10 mg Documented By: CASEY Acetaminophen (Ofirmev) 1,000 mg in 100 mls @ 400 mls/hr IV NOW STA Stop: 09/27/24 16:59 Last Infusion: 09/27/24 17:08 Dose: Infused Documented By: Admin: 09/27/24 16:51 Dose: 400 mls/hr Documented By: KADIE Ketorolac Tromethamine (Ketorolac 30 Mg/Ml Vial) 30 mg IV NOW STA Stop: 09/27/24 16:46 Last Admin: 09/27/24 16:51 Dose: 30 mg Documented By: KADIE Ketorolac Tromethamine (Ketorolac Tromethamine 15 Mg/Ml Vial) 15 mg IV NOW ONE Stop: 09/27/24 23:14 Last Admin: 09/27/24 23:25 Dose: 15 mg Documented By: Lorazepam (Lorazepam 2 Mg/1 Ml Vial) 0.5 mg IV NOW STA Stop: 09/27/24 18:07 Last Admin: 09/27/24 18:28 Dose: 0.5 mg Documented By: CASEY Morphine Sulfate (Morphine Sulfate 10 Mg/Ml Carp/Vial) 10 mg IV NOW STA Stop: 09/27/24 20:29 Last Admin: 09/27/24 20:37 Dose: 10 mg Documented By: CASEY Morphine Sulfate (Morphine Sulfate 10 Mg/Ml Carp/Vial) 6 mg IV NOW STA Stop: 09/27/24 23:35 Last Admin: 09/28/24 00:00 Dose: 6 mg Documented By: Ondansetron HCl (Ondansetron Inj 2 Mg/Ml 2 Ml Vial) 4 mg IV NOW STA Stop: 09/27/24 20:29 Last Admin: 09/27/24 20:37 Dose: 4 mg Documented By: CASEY Medical Decision Making Differential Diagnosis Differential diagnosis: Etiologies such as muscular strain, fracture, metastatic disease, disc herniation, sciatica, epidural abscess, vertebral osteomyelitis, discitis, spinal epidural hematoma, cord compression, cauda equina/conus medullaris syndrome, aortic disease, infection, shingles, renal colic UTI/pyelonephritis, gastrointestinal, acute exacerbation of chronic back pain, as well as others were entertained. Laboratory Data 09/27/24 16:42 09/27/24 16:42 Lab Results 09/27/24 09/27/24 Range/Units 16:42 16:49 WBC 6.08 (4.8-10.8) K/ul RBC 5.27 (4.70-6.10) M/uL Hgb 15.8 (14.0-18.0) g/dl POC Hgb 16.0 (14.0-18.0) g/dl Hct 45.9 (42.0-52.0) % POC Hct 47 (42-52) % MCV 87.1 (80.0-100.0) fL MCH 30.0 (25.0-34.0) pg MCHC 34.4 (32.0-36.0) g/dL RDW Std Deviation 42.0 (36.4-46.3) fL RDW Coeff of Kacey 13.2 (11.5-14.5) % Plt Count 163 (130-400) K/uL MPV 8.4 L (9.4-12.4) fL Immature Gran % (Auto) 0.5 % Neut % (Auto) 51.4 % Lymph % (Auto) 34.4 % Linn % (Auto) 9.2 % Eos % (Auto) 3.8 % Baso % (Auto) 0.7 % Neut # (Auto) 3.13 (1.40-6.50) K/uL Lymph # (Auto) 2.09 (1.20-3.40) K/uL Linn # (Auto) 0.56 (0.11-0.59) K/uL Eos # (Auto) 0.23 (0.00-0.50) K/uL Baso # (Auto) 0.04 (0.00-0.20) K/uL Immature Gran # (Auto) 0.03 (0.01-0.20) K/uL POC Sodium 141 (135-144) mmol/L Sodium 137 (136-145) mmol/L POC Potassium 4.1 (3.3-5.0) mmol/L Potassium 4.1 (3.5-5.1) mmol/L POC Chloride 105 (101-112) mmol/L Chloride 106 (98-107) mmol/L Carbon Dioxide 25 (21-32) mmol/L POC Total CO2 22 L (24-31) mmol/L Anion Gap 6 (3-11) POC Anion Gap 19.0 (16-25) mmol/L POC BUN 23 H (7-18) mg/dl BUN 23 (6-23) mg/dl Creatinine 1.12 (0.6-1.4) mg/dl POC Creatinine 1.2 (0.6-1.3) mg/dl Est Cr Clr Drug Dosing 96.9 ml/min eGFR 78.07 BUN/Creatinine Ratio 20.5 H (10-20) Glucose 84 (70-99(Fasting)) mg/dl POC Glucose (other) 83 (70-99) mg/dl Calcium 9.0 (8.6-10.3) mg/dl POC Ioniz Calcium [place] 1.17 (1.12-1.32) mmol/l Total Bilirubin 0.5 (0.2-1.0) mg/dl AST 16 (13-39) U/L ALT 23 (7-52) U/L Alkaline Phosphatase 50 (34-104) U/L Total Protein 7.5 (6.0-8.3) gm/dl Albumin 4.2 (3.4-5.0) gm/dl Globulin 3.3 (2.5-4.0) gm/dl Albumin/Globulin Ratio 1.3 (0.9-2) Imaging Data Radiologist's Impression: Lumbar Spine MRI 09/27/24 18:06 MRI LUMBAR SPINE WITHOUT CONTRAST TECHNIQUE: An MRI examination of the lumbar spine was performed. The examination consists of sagittal T1-weighted, inversion recovery and T2 weighted images as well as axial T1-weighted, T2-weighted and gradient echo images. INDICATION: Back pain COMPARISON: Lumbar spine MRI January 30, 2021 FINDINGS: No significant vertebral body height loss. No significant spondylolisthesis. Bone marrow signal is unremarkable, noting redemonstrated intraosseous hemangioma in L1 vertebral body. Redemonstrated postoperative changes of L4-S1 anterior fusion with discectomies. The conus terminates at L1. There are multilevel degenerative changes as below: L1-2: Broad-based disc bulge, bilateral facet arthropathy and thickening of the ligamentum flavum resulting in mild crowding of the subarticular recesses, mild bilateral neural foraminal narrowing. L2-3: Broad-based disc bulge with superimposed central disc protrusion, bilateral facet arthropathy and thickening of the ligamentum flavum resulting in moderate crowding of the subarticular recesses and moderate bilateral neural foraminal narrowing. Likely the traversing nerve roots are impinged at this level. L3-4: Broad-based disc bulge, bilateral facet arthropathy and thickening of the ligamentum flavum resulting in moderate crowding of the subarticular recesses and moderate bilateral neural foraminal narrowing. Likely the traversing nerve roots are impinged at this level and the exiting nerve roots are mildly impinged extraforaminally. L4-5: Postoperative changes as above. There is fusion of the vertebral bodies. There are productive osseous changes at the ankylosis that result in impingement of the left exiting nerve root and bilateral traversing nerve roots. L5-S1: Postoperative changes. There are productive osseous changes at this level as well resulting in impingement of the exiting and traversing nerve roots. Renal cysts IMPRESSION: No acute process detected in the lumbar spine. Postoperative changes of L4-S1 anterior fusion with discectomies. There are accelerated degenerative changes superiorly to the surgical levels. In addition there are productive osseous changes at the sites of bony ankylosis/fusion at the surgical sites resulting in impingement of the traversing and exiting nerve roots. Electronically signed by Janes Roldan 09-27-2024 7:48 PM MDM Narrative Physical exam and history were performed. Nursing notes, EMR, and Medication List were personally reviewed. No social concerns were identified as barriers to patients care. History was provided by the Patient, EMS, and at bedside. Patient appears to have low back pain bringing him to the ER. Patient appears quite uncomfortable, and has received IV morphine prehospital. IV access was established and labs were obtained. Patient was given IV Toradol, IV Tylenol, IV Ativan, and IV Decadron. Patient case was discussed with orthopedic pst specialist, Dr. Mejía, as the office reportedly sent the patient to the ER. Concern is the patient is evolving and worsening symptoms. Recommendation was for MRI which was performed without contrast. MRI was reviewed by myself and radiology and does not show distinct abscess. Patient has multilevel disc disease which is likely the cause of his symptoms. On reevaluation patient continues with significant discomfort. He was given additional IV morphine, as well as some IV Zofran and IV Valium. Patient continues with significant discomfort and despite large amount of pain medications he is not able to ambulate safely. Escalation of care is felt to be necessary as patient has intractable pain and is unable to walk. Case was ultimately discussed with the on-call hospitalist, who agreed to evaluate the patient here in the ER. Please see their dictation for further patient course, plan, and disposition. The chart was completed utilizing [employer] Speech Voice Recognition Software. Grammatical errors, random word insertions, pronoun errors, and incomplete sentences are an occasional consequence of this system due to software limitations, ambient noise, and hardware issues. Any formal questions or concerns about the content, text, or information contained within the body of this dictation should be directly addressed to the provider for clarification. Impression & Plan Intractable low back pain, Low back pain, Ambulatory dysfunction Discharge Plan Visit Data Chief Complaint: Back Injury/Pain Stated Complaint: BACK PAIN ED Provider: Agustin Marie ED Midlevel Provider: Bert Taylor Discharge Problem: Intractable low back pain, Low back pain, Ambulatory dysfunction Forms Stand Alone Forms: [facility] Prescriptions Prescriptions: No Action pantoprazole 40 mg tablet,delayed release (DR/EC) 40 mg PO QAM Qty: 90 3RF Brilinta 90 mg tablet 90 mg PO BID Qty: 180 2RF tadalafil 5 mg tablet 20 mg PO ONCE PRN (Reason: sexual activity) Qty: 30 11RF losartan 25 mg tablet 25 mg PO QAM Qty: 90 3RF sertraline [Zoloft] 100 mg tablet 100 mg PO QAM Qty: 90 3RF trazodone 150 mg tablet 150 mg PO HS Qty: 90 3RF albuterol sulfate 90 mcg/actuation HFA aerosol inhaler 2 puff inhalation Q6H PRN (Reason: Shortness Of Breath Or Wheezing) Qty: 18 3RF aspirin 81 mg Tablet,Delayed Release (Dr/Ec) 81 mg PO QAM Qty: 90 3RF nitroglycerin [Nitrostat] 0.4 mg Tablet, Sublingual 0.4 mg sublingual Q5M PRN (Reason: chest pain) Qty: 1 0RF atorvastatin 40 mg tablet 40 mg PO QAM montelukast 10 mg tablet 10 mg PO QPM Rx Instructions: TAKE 1 TABLET DAILY IN THE EVENING fenofibrate nanocrystallized 145 mg tablet 145 mg PO QAM levocetirizine [Xyzal] 5 mg Tablet 5 mg PO PM Referrals Referrals: Ana Rosa Murguia CRNP [Primary Care Provider] -
[2024-09-27 17:03] LABS: iSTAT Creatinine 1.2 mg/dl (0.6-1.3); iSTAT Ionized Calcium 1.17 mmol/l (1.12-1.32); iSTAT Potassium 4.1 mmol/L (3.3-5.0)
[2024-09-27 17:10] LABS: Basophils # (auto) 0.04 K/uL (0.00-0.20); Basophils % (auto) 0.7 %; Eosinophils # (auto) 0.23 K/uL (0.00-0.50); Eosinophils % (auto) 3.8 %; Hematocrit (blood only) 45.9 % (42.0-52.0); Hemoglobin 15.8 g/dl (14.0-18.0); Immature Granulocytes # (auto) 0.03 K/uL (0.01-0.20); Immature Granulocytes % (auto) 0.5 %; Lymphocytes # (auto) 2.09 K/uL (1.20-3.40); Lymphocytes % (auto) 34.4 %; Mean Corpuscular Hgb Conc 34.4 g/dL (32.0-36.0); Mean Corpuscular Volume 87.1 fL (80.0-100.0); Mean Platelet Volume 8.4 fL (9.4-12.4); Monocytes # (auto) 0.56 K/uL (0.11-0.59); Monocytes % (auto) 9.2 %; Neutrophils # (auto) 3.13 K/uL (1.40-6.50); Neutrophils % (auto) 51.4 %; Platelet Count 163 K/uL (130-400); RDW Coefficient of Variation 13.2 % (11.5-14.5); Red Blood Count 5.27 M/uL (4.70-6.10); White Blood Count 6.08 K/ul (4.8-10.8)
[2024-09-27 17:12] LABS: Albumin Globulin Ratio 1.3 (0.9-2); Albumin Level 4.2 gm/dl (3.4-5.0); BUN Creatinine Ratio 20.5 (10-20); Bilirubin,Total 0.5 mg/dl (0.2-1.0); Creatinine Clr Calc Pharmacy 96.9 ml/min; Globulin 3.3 gm/dl (2.5-4.0); Potassium 4.1 mmol/L (3.5-5.1); Total Protein 7.5 gm/dl (6.0-8.3)
[2024-09-27] MEDS: dexAMETHasone**PF** 10 MG/ML VIAL IV ONE (18:27)
[2024-09-27] MEDS: LORazepam 2 MG/1 ML VIAL IV STA (18:28)
--- NOTE | 2024-09-27 19:48 | Magnetic Resonance Report ---
MRI LUMBAR SPINE WITHOUT CONTRAST TECHNIQUE: An MRI examination of the lumbar spine was performed. The examination consists of sagittal T1-weighted, inversion recovery and T2 weighted images as well as axial T1-weighted, T2-weighted and gradient echo images. INDICATION: Back pain COMPARISON: Lumbar spine MRI January 30, 2021 FINDINGS: No significant vertebral body height loss. No significant spondylolisthesis. Bone marrow signal is unremarkable, noting redemonstrated intraosseous hemangioma in L1 vertebral body. Redemonstrated postoperative changes of L4-S1 anterior fusion with discectomies. The conus terminates at L1. There are multilevel degenerative changes as below: L1-2: Broad-based disc bulge, bilateral facet arthropathy and thickening of the ligamentum flavum resulting in mild crowding of the subarticular recesses, mild bilateral neural foraminal narrowing. L2-3: Broad-based disc bulge with superimposed central disc protrusion, bilateral facet arthropathy and thickening of the ligamentum flavum resulting in moderate crowding of the subarticular recesses and moderate bilateral neural foraminal narrowing. Likely the traversing nerve roots are impinged at this level. L3-4: Broad-based disc bulge, bilateral facet arthropathy and thickening of the ligamentum flavum resulting in moderate crowding of the subarticular recesses and moderate bilateral neural foraminal narrowing. Likely the traversing nerve roots are impinged at this level and the exiting nerve roots are mildly impinged extraforaminally. L4-5: Postoperative changes as above. There is fusion of the vertebral bodies. There are productive osseous changes at the ankylosis that result in impingement of the left exiting nerve root and bilateral traversing nerve roots. L5-S1: Postoperative changes. There are productive osseous changes at this level as well resulting in impingement of the exiting and traversing nerve roots. Renal cysts IMPRESSION: No acute process detected in the lumbar spine. Postoperative changes of L4-S1 anterior fusion with discectomies. There are accelerated degenerative changes superiorly to the surgical levels. In addition there are productive osseous changes at the sites of bony ankylosis/fusion at the surgical sites resulting in impingement of the traversing and exiting nerve roots. Electronically signed by Janes Roldan 09-27-2024 7:48 PM
[2024-09-27] MEDS: ONDANSETRON INJ 2 MG/ML 2 ML VIAL IV STA (20:37)
[2024-09-27] MEDS: MoRPHine SULFATE 10 MG/ML CARP/VIAL IV STA (20:37)
[2024-09-27] MEDS: diazePAM 5 MG/ML 10ML VIAL IV STA (22:46)
--- NOTE | 2024-09-27 23:18 | History & Physical Report ---
Date of Service September 27, 2024 Assessment & Plan (1) Intractable low back pain: (2) Spinal stenosis: (3) Degenerative disc disease: (4) Hypotension: Plan Patient is a 54-year-old male with past medical history of DILLAN, hypertension, hyperlipidemia, Froin syndrome, NSTEMI, chronic back pain s/p numerous lumbar spine surgeries. Patient presented via EMS after his was unable to get him out of his chair due to significantly worsened back pain that began 09/26 after standing up from his workbench. Patient has had difficulty with ambulation and specifically ambulating to the bathroom so he is being admitted for pain control, ambulatory dysfunction, and have orthopedic spine eval. #Intractable back pain - Hx numerous spinal surgeries including 5 lumbar spine (most recent 2003 with Marily Vitale) and 1 cervical spine ([address] Mejía). Lumbar spine MRI showed no acute process, postop changes of L4-S1, productive osseous changes at sites of bony ankylosis/fusion at surgical sites resulting in impingement of transversing and exiting nerve roots. Patient denies any concerning symptoms as in saddle anesthesia, urinary or bowel incontinence, leg drop. Patient with difficulty ambulating 2/2 pain. - pain control with scheduled IV Tylenol, Toradol 15mg IV Q6H, morphine 6/10mg IV Q3H - of note patient had 30mg IV Toradol 1645 + 15 mg IV 2320 09/27; do not exceed 60mg/day - anaphylaxis with Dilaudid - oxygen and Narcan prn - muscle spasm control with Valium 10mg po q6h - scheduled Voltaren gel - K Pad prn - Decadron 10mg IV given in ED; continue with 6mg IV daily - orthopedics consulted - [facility] as patient follows with out patient - PT/OT ordered - Currently able to urinate with urinal, however if pain becomes too severe, consider catheter. #hypotension - suspect 2/2 IV opioids, 101/49 at time of admission - hold losartan - LR @ 100 ml/hr x 1L #CAD/HLD - s/p PCI LAD x 2 CHRISTIANA 09/2023 on aspirin and Brilinta. Stable - Patient reports this was to switch to Plavix alone at the end of the month, would like to facilitate reaching out to patient's line rider Dr. Carty regarding starting this on discharge - continue aspirin, Brilinta, fenofibrate, statin #GERD - stable - continue PPI #depression/anxiety/insomnia - stable - continue sertraline and trazadone #DILLAN - does not currently use CPAP VTE ppx: SCDs, low risk Dispo: med/surg with continuous pulse ox with IV opioids Admission and Anticipated Discharge Date Admission Date: 09/27/24 History of Present Illness Chief Complaint: back pain Primary Care Provider: RESHMA Barnett Patient is a 54-year-old male with past medical history of DILLAN, hypertension, hyperlipidemia, Froin syndrome, NSTEMI s/p PCI LAD x 2 CHRISTIANA 09/2023 on aspirin and Brilinta, chronic back pain s/p numerous lumbar spine surgeries. Patient presented via EMS after his was unable to get him out of his chair due to significantly worsened back pain that began 09/26 after standing up from his workbench. Patient has had difficulty with ambulation and specifically ambulating to the bathroom so he is being admitted for pain control, ambulatory dysfunction, and have orthopedic spine eval. Patient seen at bedside with his present. He stated yesterday he stood up from his work bench and developed severe 10/10 back pain that radiated around his hips and down the anterior sides of his left legs, left is greater than worse. He stated his pain is in the L3/L4 region. Patient has a long history of back pain having 5 lumbar spine surgeries most recent 2003 with Nigel Vitale and 1 cervical spine triple level fusion in [address] Mejía. Patient called his Ortho spine surgeon Dr. Mejía who recommended he come into the ED. Handoff from the ED stated that they spoke with Dr. Mejía who recommended MRI and if pain improves patient can discharge home however if still having difficulty with ambulation to be admitted and orthopedics will see in the morning. Patient stated his chronic bilateral lower extremity numbness is slightly worse than his baseline. He denies any saddle anesthesias or leg drop, dizziness/lightheadedness, bowel or bladder incontinence. Patient has had long- term issues and stated Tylenol and lidocaine patch do not relieve his pain. He has an anaphylactic allergy to Dilaudid. Patient has already received 30 Mg IV Toradol, 20 Mg IV morphine, 0.5 Mg IV Ativan, Valium 10 Mg IV in the ED. Patient stated typically his pain responds well to morphine, Toradol, and Valium. Patient still complaining of 10/10 pain even after receiving numerous IV pain measures. Patient has a history of occasional social cigar use, declines need for nicotine patch. He drinks several beers per week, no chronic daily use. He still needs his evening medications. He stated he was supposed to transition off aspirin and Brilinta and to Plavix at the end of the month with his line rider, would like for us to reach out to them to coordinate this. He wishes to be full code. Has appointment with PCP on Wednesday. Allergies Allergy/AdvReac Type Severity Reaction Status Date / Time hydromorphone Allergy Severe SHORTNESS Verified 09/27/24 19:39 OF BREATH Penicillins Allergy Severe ALLERGY TO Verified 09/27/24 19:39 [id number] doxycycline Allergy Intermediate BLISTERS/HI Verified 09/27/24 19:39 VES lamotrigine Allergy Intermediate tremors Verified 09/27/24 19:39 clindamycin AdvReac Intermediate NAUSEA Verified 09/27/24 19:39 eletriptan AdvReac Mild nausea/vomi Verified 09/27/24 19:39 ting Home Medications Medication Instructions Recorded Confirmed Type tadalafil 5 mg tablet 20 mg (4 x 5 mg) PO ONCE PRN 04/13/23 09/27/24 Rx sexual activity #30 tabs aspirin 81 mg tablet,delayed 81 mg PO QAM #90 tabs 09/07/23 09/27/24 Rx release nitroglycerin 0.4 mg sublingual 0.4 mg sublingual Q5M PRN chest 09/07/23 09/27/24 Rx tablet (Nitrostat) pain #1 btl losartan 25 mg tablet 25 mg PO QAM #90 tabs 11/03/23 09/27/24 Rx pantoprazole 40 mg tablet,delayed 40 mg PO QAM #90 tabs 01/14/24 09/27/24 Rx release sertraline 100 mg tablet (Zoloft) 100 mg PO QAM #90 tabs 03/31/24 09/27/24 Rx trazodone 150 mg tablet 150 mg PO HS #90 tabs 03/31/24 09/27/24 Rx atorvastatin 40 mg tablet 40 mg PO QAM 05/23/24 09/27/24 History fenofibrate nanocrystallized 145 145 mg PO QAM 05/23/24 09/27/24 History mg tablet montelukast 10 mg tablet 10 mg PO QPM 05/23/24 09/27/24 History ticagrelor 90 mg tablet (Brilinta) 90 mg PO BID #180 tabs 07/12/24 09/27/24 Rx albuterol sulfate 90 mcg/actuation 2 puff inhalation Q6H PRN 08/21/24 09/27/24 Rx aerosol inhaler Shortness Of Breath Or Wheezing #18 grams levocetirizine 5 mg tablet (Xyzal) 5 mg PO PM 09/27/24 09/27/24 History Past Med/Surg History Problem List (Updated 09/28/24 @ 01:24 by Background Daemrafal) Ambulatory dysfunction (Acute) Low back pain (Acute) Intractable low back pain (Acute) Hypotension Degenerative disc disease Spinal stenosis Intractable low back pain Cigar smoker Allergic rhinitis with postnasal drip Chronic cough Abnormal CT scan, chest Acute respiratory failure with hypoxia BYRD (dyspnea on exertion) (Acute) Pneumonia involving right lung (Acute) Failure of outpatient treatment Acute on chronic respiratory failure with hypoxia Multifocal pneumonia Pneumonia (Acute) Migraine Coronary artery disease Epidermal cyst Sebaceous cyst De Quervain's tenosynovitis Depression (Chronic) Anxiety (Chronic) 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 David Shea ([facility] [place] neuro) Dyslipidemia (Chronic) Hypertension (Chronic) Allergic rhinitis Post traumatic stress disorder (Chronic) Cervical spinal stenosis (Chronic) Thoracic degenerative disc disease (Chronic) Erectile dysfunction (Chronic) Chronic daily headache Medical History Hypoxia NSTEMI (non-ST elevated myocardial infarction) Viral pneumonia Chest pain Disc degeneration, lumbar Esophageal reflux Obstructive sleep apnea Migraine with aura Parainfluenza virus bronchitis Froin's syndrome FOLLOWED BY DR. SHEA Failed back surgical syndrome Degenerative disc disease Spinal stenosis Post traumatic stress disorder Anxiety and depression FOLLOWS COUNSELOR 1 X PER MONTH Hypertension Hyperlipidemia Sleep apnea no device Left lateral epicondylitis History of suicide attempt Status epilepticus (10/19/13) No problems since, had mini-seizures r/t "body shutting down". believed r/t the Froin's syndrome. treated at [facility]. HOSPITALIZED 2013 AND 2016 "BELIEVES RELATED TO GABAPENTIN NOT BROKEN DOWN" Surgical History History of colonoscopy (~09/2021) Family history of reaction to anesthesia BROTHER>NAUSEA Cyst REMOVED FROM BACK S/P lumbar and lumbosacral fusion by anterior technique 2003 [place] teeth removed S/P cervical spinal fusion GOOD ROM History of esophagogastroduodenoscopy (EGD) History of lumbar fusion TOTAL 5 LUMBAR SURGERIES (4 POSTERIOR/1 ANTERIOR>LAST LUMBAR) Family History Grandfather (Maternal) Diabetes Mother FHx: skin cancer Sinus disorder Grandmother (Maternal) FHx: stomach cancer Brother Asthma Sinus disorder Father Cardiac disorder Lumbar disc disease Parkinson disease Aunt Diabetes Uncle Diabetes Grandmother Cancer Other Gallbladder disease Heart disease Hypertension Social History Smoking Status: Never smoker Second Hand Exposure: No; Do You Dip or Chew Tobacco: No; Hx Alcohol Use: Yes Alcohol type: beer Alcohol Intake Frequency: 2-4 x/Month Hx Substance Use: No Preferred Language: Tamaz[place] Communication Ability: Effective Visual Impairment: No Limitations Hearing Ability: Normal Burr Filer Required: No Beliefs That Will Affect Care: None marital status: Current Living Situation: Spouse and Family Current Living Situation Comment: & Son current occupational status: employed 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 Non-toxic appearing. HEENT- EOMI, mucous membranes moist. Hearing grossly intact. Heart-normal S1 and S2. No murmurs, rubs or gallops. Lungs-clear bilaterally, no respiratory distress, no accessory muscle use. Abdomen-normal bowel sounds and soft. No ascites noted. Non-tender. Extremities- no clubbing, cyanosis, or edema. Rheumatologic-decreased range of motion. Psychiatric-normal affect. Musculoskeletal: Extremities: + limited ROM of extremities left lower extremity with poor strength and numbness, baseline Right lower extremity with chronic numbness Results & Data Results & Data Vital Signs (Past 12 Hours) Vital Signs Temp Pulse Pulse Resp BP BP Pulse Ox 09/27/24 22:30 60 18 97/58 L 94 09/27/24 20:00 63 18 125/78 94 09/27/24 18:26 72 18 106/63 97 09/27/24 16:57 76 09/27/24 16:42 36.9 C 80 18 110/77 98 O2 Del Method 09/27/24 22:30 Room Air 09/27/24 20:00 Room Air 09/27/24 18:26 Room Air 09/27/24 16:57 09/27/24 16:42 Room Air Laboratory Results Reviewed CBC and CMP Diagnostic Findings reviewed lumbar MRI Medications Administered AMS10 Mg IV morphine, 4 Mg IV Zofran ED30 Mg IV Toradol, 1G IV Tylenol, Decadron 10 Mg IV, 0.5 Mg Ativan, morphine 10 Mg IV, Zofran 4 Mg IV, Valium 10 Mg IV Code Status & VTE Plan Code Status full code VTE Prophylaxis Plan VTE Prophylaxis will be ordered: Yes Supervising Physician Co-Signing Physician Notes patient seen and examined, chart reviewed, case discussed with VIRGIL Ford and agree with the assessment plan as documented above. In brief, patient is a 54-year-old male with chronic low back paindegenerative disc disease, status post lumbar surgery x 5 presenting with acute worsening of his chronic back pain. Pain is in the lumbar region, wraps around his hips bilaterally and radiates into his anterior thighs and down to his knee. Chronic left lower extremity numbness with new right lower extremity numbness. Patient denies weakness, bowels and bladder are intact On physical exam patient is in significant discomfort, writhing in bed Skinno rash HEENTmoist mucous membranes, neck supple Heart+ S1, S2, regular, no murmur/rub/gallops Lungs CTA Abdomenpositive bowel sounds, soft, nontender/nondistended Extremitieswarm, well-perfused Muscular spasm and tenderness right paraspinals at approximately L3/L4 level noted labs and images reviewed Assessment/planintractable back pain Multimodal approach with scheduled Tylenol, Toradol, Valium, steroids, heat, Voltaren with morphine as needed Orthopedic surgery consult appreciated Remainder as above PG Care Time/CCT Total # of Minutes Spent Total Time Spent with Patient: Total time spent is greater than 50% in coordination of care (as documented) at patient's floor/unit and/or counseling patient: Coding Level of Care Code 98006 INT INP/OBS CARE 3/75MIN Diagnoses Intractable low back pain M54.59 Spinal stenosis M48.00 Degenerative disc disease Hypotension I95.9
[2024-09-27] MEDS: KETOROLAC TROMETHAMINE 15 MG/ML VIAL IV ONE (23:25)
[2024-09-28] MEDS: MoRPHine SULFATE 10 MG/ML CARP/VIAL IV STA
[2024-09-28] MEDS: LACTATED RINGER'S 1,000 ML IV SCH (00:01)
[2024-09-28] MEDS ORDERED: ACETAMINOPHEN 1,000 MG/100 ML VIAL IV SCH (01:25)
[2024-09-28] MEDS ORDERED: diazePAM 5 MG/ML 10ML VIAL IV PRN (01:25)
[2024-09-28] MEDS ORDERED: NALOXONE HCL 0.4 MG/1 ML VIAL/CARP IV PRN (01:25)
[2024-09-28] MEDS ORDERED: ONDANSETRON INJ 2 MG/ML 2 ML VIAL IV PRN (01:25)
[2024-09-28] MEDS ORDERED: ALBUTEROL HFA 8 GM INHALER INH PRN (01:25)
[2024-09-28] MEDS ORDERED: MoRPHine SULFATE 10 MG/ML CARP/VIAL IV PRN ×2 (02:01→10:48)
[2024-09-28] MEDS: diazePAM 5 MG TABLET PO PRN (02:29)
[2024-09-28] MEDS: MONTELUKAST SODIUM 10 MG TABLET PO SCH (02:31)
[2024-09-28] MEDS: TICAGRELOR 90 MG TAB PO SCH (02:34)
[2024-09-28] MEDS: dexAMETHasone 6 MG in SYRINGE 0 ML IV SCH ×3 (02:58→20:21)
[2024-09-28] MEDS: MoRPHine SULFATE 10 MG/ML CARP/VIAL IV PRN ×2 (03:01→11:09)
[2024-09-28] MEDS: ACETAMINOPHEN 500 MG TAB PO SCH (03:02)
[2024-09-28] MEDS: DICLOFENAC SOD 1% GEL 100 GM TUBE EXT SCH (03:03)
[2024-09-28] MEDS: PANTOprazole 40 MG TAB PO SCH (08:56)
[2024-09-28] MEDS: ATORVASTATIN 40 MG TAB PO SCH (08:56)
[2024-09-28] MEDS: FENOFIBRATE NANOCRYSTALLIZED 145 MG TABLET PO SCH (08:56)
[2024-09-28] MEDS: SERTRALINE HCL 100 MG TABLET PO SCH (08:57)
[2024-09-28] MEDS: ASPIRIN 81 MG ECTAB PO SCH (08:57)
[2024-09-28 09:53] LABS: Potassium 4.3 mmol/L (3.5-5.1)
[2024-09-28 09:59] LABS: BUN Creatinine Ratio 23.4 (10-20); Creatinine Clr Calc Pharmacy 99.4 ml/min
[2024-09-28] MEDS: KETOROLAC TROMETHAMINE 15 MG/ML VIAL IV PRN (10:28)
--- NOTE | 2024-09-28 10:30 | CT Scan Report ---
CT lumbar spine wo con CLINICAL HISTORY: back and leg pain COMPARISON STUDY: 09/27/2024 FINDINGS: Metallic fusion from L4 through S1 shows no hardware complication. No fracture or subluxati on seen. Findings of degenerative disc disease are better seen on the MRI yesterday. Stable small hem angioma at the L1 vertebral body. IMPRESSION: 1. No lumbar spine fracture seen. 2. Please see the report from the MRI yesterday for description of degenerative findings. ACT 112: Negative or not required by law. Electronically signed by: Vladislav Harmon M.D. 09/28/2024 10:29 AM
[2024-09-28] MEDS: DOCUSATE SODIUM 100 MG CAP PO PRN (10:33)
--- NOTE | 2024-09-28 11:49 | Pain Management Consultation ---
Date of Consultation September 28, 2024 Assessment & Plan (1) Intractable low back pain: (2) Lumbar radicular pain: (3) Postlaminectomy syndrome of lumbosacral region: (4) Chronic anticoagulation: Plan 1. Patient with acute on chronic low back pain with radicular component with MRI suggesting neuroforaminal narrowing at multiple levels with most severe above level of prior surgical intervention with history of anterior fusion from L4-S1. We did discuss his candidacy to pursue a bilateral L3-4 transforaminal ARMOND. We discussed that he would need to be able to hold Brilinta and ASA therapy to pursue ARMOND. Would need to be discussed with cardiology. Scheduling could occur in the outpatient setting for this procedure if desired. Patient reports prior history of poor response to epidural steroid injections in the past and referred to further discuss surgical intervention with Dr. Mejía. 2. We discussed considering a trial of pregabalin due to his prior history of side effects from gabapentin he deferred 3. Recommend continuing current regimen with dexamethasone, ketorolac, diazepam and morphine per hospitalist service. 4. Patient will update pain service should he wish to pursue lumbar ARMOND pending further discussion with Dr. Mejía. Pain service will sign off on patient at this time. History of Present Illness Reason for Consultation: Intractable low back pain and lower extremity radicular pain Requesting Physician: Troy Mejía DO Attending Physician: Fabiola Brown MD History of Present Illness Mr. Blackman is a 54-year-old white male with past medical history significant for DILLAN, hypertension, hyperlipidemia, NSTEMI on chronic Brilinta/ASA therapy with history of PCI LAD x 2 CRHISTIANA 09/2023 and chronic low back pain with history of multiple lumbar spine surgeries most recently in 2003 at [facility] with an anterior fusion from L4-S1. Patient also has prior history of cervical spine surgery Dr. Mejía in 2018. Patient presented to the emergency department last evening after reporting increase in his chronic low back pain over the past 2 days without known injury. He reports severe sharp stabbing pain in the axial low back with standing up from a sitting position. He is experiencing radiation of pain into the lateral and anterior thighs bilaterally left greater than right sided. He reports some occasional paresthesias traveling to the great toe bilaterally left greater than right sided which is chronic although slightly increased recently. Patient denies bowel/bladder incontinence or saddle anesthesia. He did undergo up-to-date lumbar MRI. He is awaiting consultation with Dr. Mejía to discuss surgical options. He has a history of multiple epidural steroid injections in the past with poor efficacy per his report. The patient reports gabapentin "almost killed him" in the past although unable to elaborate to exact side effects/cause. Patient rates his pain a 6/10 at its best and 10/10 at its worst. His pain is worse with movement from sitting to standing, rolling in bed, standing or walking. His pain is slightly improved with lying or sitting up supported. He denies any further constitutional complaints. Plan of care discussed with Dr. Aubree Alejandro. Pain Assessment Full Body Front + Back: 2 1. Axial low back pain 2. Radicular pattern pain in a predominant L3 distribution 3. Radicular pattern pain in a predominant L3 distribution Pain scale - at its best (0-10): 6 Pain scale - at its worst (0-10): 10 Allergies Allergy/AdvReac Type Severity Reaction Status Date / Time hydromorphone Allergy Severe SHORTNESS Verified 09/27/24 19:39 OF BREATH Penicillins Allergy Severe ALLERGY TO Verified 09/27/24 19:39 [id number] doxycycline Allergy Intermediate BLISTERS/HI Verified 09/27/24 19:39 VES lamotrigine Allergy Intermediate tremors Verified 09/27/24 19:39 clindamycin AdvReac Intermediate NAUSEA Verified 09/27/24 19:39 eletriptan AdvReac Mild nausea/vomi Verified 09/27/24 19:39 ting Home Medications Medication Instructions Recorded Confirmed Type tadalafil 5 mg tablet 20 mg (4 x 5 mg) PO ONCE PRN 04/13/23 09/27/24 Rx sexual activity #30 tabs aspirin 81 mg tablet,delayed 81 mg PO QAM #90 tabs 09/07/23 09/27/24 Rx release nitroglycerin 0.4 mg sublingual 0.4 mg sublingual Q5M PRN chest 09/07/23 09/27/24 Rx tablet (Nitrostat) pain #1 btl losartan 25 mg tablet 25 mg PO QAM #90 tabs 11/03/23 09/27/24 Rx pantoprazole 40 mg tablet,delayed 40 mg PO QAM #90 tabs 01/14/24 09/27/24 Rx release sertraline 100 mg tablet (Zoloft) 100 mg PO QAM #90 tabs 03/31/24 09/27/24 Rx trazodone 150 mg tablet 150 mg PO HS #90 tabs 03/31/24 09/27/24 Rx atorvastatin 40 mg tablet 40 mg PO QAM 05/23/24 09/27/24 History fenofibrate nanocrystallized 145 145 mg PO QAM 05/23/24 09/27/24 History mg tablet montelukast 10 mg tablet 10 mg PO QPM 05/23/24 09/27/24 History ticagrelor 90 mg tablet (Brilinta) 90 mg PO BID #180 tabs 07/12/24 09/27/24 Rx albuterol sulfate 90 mcg/actuation 2 puff inhalation Q6H PRN 08/21/24 09/27/24 Rx aerosol inhaler Shortness Of Breath Or Wheezing #18 grams levocetirizine 5 mg tablet (Xyzal) 5 mg PO PM 09/27/24 09/27/24 History Pain History Pain Intensity Pain scale - at its best (0-10): 6 Pain scale - at its worst (0-10): 10 Patient History Medical History Hypoxia NSTEMI (non-ST elevated myocardial infarction) Viral pneumonia Chest pain Disc degeneration, lumbar Esophageal reflux Obstructive sleep apnea Migraine with aura Parainfluenza virus bronchitis 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 believed r/t the Froin's syndrome. treated at [facility]. HOSPITALIZED 2013 AND 2016 "BELIEVES RELATED TO GABAPENTIN NOT BROKEN DOWN" Surgical History History of colonoscopy (~09/2021) Family history of reaction to anesthesia BROTHER>NAUSEA Cyst REMOVED FROM BACK S/P lumbar and lumbosacral fusion by anterior technique 2003 [place] teeth removed S/P cervical spinal fusion GOOD ROM History of esophagogastroduodenoscopy (EGD) History of lumbar fusion TOTAL 5 LUMBAR SURGERIES (4 POSTERIOR/1 ANTERIOR>LAST LUMBAR) Family History Grandfather (Maternal) Diabetes Mother FHx: skin cancer Sinus disorder Grandmother (Maternal) FHx: stomach cancer Brother Asthma Sinus disorder Father Cardiac disorder Lumbar disc disease Parkinson disease Aunt Diabetes Uncle Diabetes Grandmother Cancer Other Gallbladder disease Heart disease Hypertension Social History Smoking Status: Former smoker Tobacco Type: Cigars Second Hand Exposure: Yes; Do You Dip or Chew Tobacco: No; Tobacco Cessation Education Requested by Patient: No Hx Alcohol Use: Yes Alcohol type: beer Alcohol Intake Frequency: 2-4 x/Month Hx Substance Use: No Preferred Language: Cymraes Communication Ability: Effective Visual Impairment: No Limitations Hearing Ability: Normal Director [employer] Required: No Beliefs That Will Affect Care: None marital status: Current Living Situation: Spouse and Family Current Living Situation Comment: lives with and children current occupational status: employed 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 Speech and thought process appropriate. Mood and affect appropriate. Cognition intact. Head: Normocephalic and atraumatic. ENT: No evidence of nasal or oral mucosal lesions. Mucous membranes are moist. Eyes: Pupils equal round reactive to light. Neck: Supple without adenopathy and full range of motion. Abdomen: Soft and nondistended. No organomegaly. Bowel sounds active. Back/spine: Patient able to sit up for exam with discomfort. Patient has diffuse lumbar tenderness to palpation with slight hyperalgesia which is nonfocal to the midline, facet joint or SI joint location. Lower extremities: Strength testing is 4/5 on the left with dorsi and plantarflexion 5/5 on the right. Hip flexion 4+/5 bilaterally and equal. Sensation was intact without focal deficit distally. No appreciable edema. SLR increased low back pain extending into the thigh bilaterally left greater than right sided. Neurologic: Cranial nerves grossly intact. Ambulatory function not witnessed. Results (Pain Clinic) Diagnostic Review MRI Findings: [facility], [place] [phone] Magnetic Resonance Report Patient: PROMISE BLACKMAN Admit Date: 09/27/24 MR#: [id number] Address1: [address] Acct ID:[id number] Address2: Date: 1970 [facility] Zip: [place] [address] Age: 54 Location: ED Sex: M Room/Bed: Att Phy: Diagnosis: BACK PAIN Evelyn Phy: Ana Rosa Murguia Service Date: 09/27/24 Fam Phy: Interpreting Phy: Janes Roldan MDAdmit Phy: Ordering Phy: Bert Taylor PA-C cc: ~ MRI LUMBAR SPINE WITHOUT CONTRAST TECHNIQUE: An MRI examination of the lumbar spine was performed. The examination consists of sagittal T1-weighted, inversion recovery and T2 weighted images as well as axial T1-weighted, T2-weighted and gradient echo images. INDICATION: Back pain COMPARISON: Lumbar spine MRI January 30, 2021 FINDINGS: No significant vertebral body height loss. No significant spondylolisthesis. Bone marrow signal is unremarkable, noting redemonstrated intraosseous hemangioma in L1 vertebral body. Redemonstrated postoperative changes of L4-S1 anterior fusion with discectomies. The conus terminates at L1. There are multilevel degenerative changes as below: L1-2: Broad-based disc bulge, bilateral facet arthropathy and thickening of the ligamentum flavum resulting in mild crowding of the subarticular recesses, mild bilateral neural foraminal narrowing. L2-3: Broad-based disc bulge with superimposed central disc protrusion, bilateral facet arthropathy and thickening of the ligamentum flavum resulting in moderate crowding of the subarticular recesses and moderate bilateral neural foraminal narrowing. Likely the traversing nerve roots are impinged at this level. L3-4: Broad-based disc bulge, bilateral facet arthropathy and thickening of the ligamentum flavum resulting in moderate crowding of the subarticular recesses and moderate bilateral neural foraminal narrowing. Likely the traversing nerve roots are impinged at this level and the exiting nerve roots are mildly impinged extraforaminally. L4-5: Postoperative changes as above. There is fusion of the vertebral bodies. There are productive osseous changes at the ankylosis that result in impingement of the left exiting nerve root and bilateral traversing nerve roots. L5-S1: Postoperative changes. There are productive osseous changes at this level as well resulting in impingement of the exiting and traversing nerve roots. Renal cysts IMPRESSION: No acute process detected in the lumbar spine. Postoperative changes of L4-S1 anterior fusion with discectomies. There are accelerated degenerative changes superiorly to the surgical levels. In addition there are productive osseous changes at the sites of bony ankylosis/fusion at the surgical sites resulting in impingement of the traversing and exiting nerve roots. Electronically signed by Janes Roldan 09-27-2024 7:48 PM Dictated: 09/27/24 [id number] Transcribed: CT Findings: [place], [place] [phone] CT Scan Report Patient: PROMISE BLACKMAN Admit Date: 09/27/24 MR#: [id number] Address1: [address] [place] [address] Acct ID:[id number] Address2: Date: 1970 [facility] Zip: [place] [address] Age: 54 Location: 3N Sex: M Room/Bed: N375- Att Phy: Fabiola Brown MD Diagnosis: INTRACTABLE PAIN Evelyn Phy: Ana Rosa Murguia Service Date: 09/28/24 Fam Phy: Interpreting Phy: Vladislav Harmon [facility] Phy: Alicia Ford PA-C Ordering Phy: Troy Mejía D.O. cc: ~ CT lumbar spine wo con CLINICAL HISTORY: back and leg pain COMPARISON STUDY: 09/27/2024 FINDINGS: Metallic fusion from L4 through S1 shows no hardware complication. No fracture or subluxation seen. Findings of degenerative disc disease are better seen on the MRI yesterday. Stable small hemangioma at the L1 vertebral body. IMPRESSION: 1. No lumbar spine fracture seen. 2. Please see the report from the MRI yesterday for description of degenerative findings. ACT 112: Negative or not required by law. Electronically signed by: Vladislav Harmon M.D. 09/28/2024 10:29 AM Dictated: 09/28/24 1026 Transcribed: 09/28/24 1026 Previous Records Review Previous Records: personally reviewed by me
--- NOTE | 2024-09-28 12:04 | Hospitalist Progress Note ---
Date of Service September 28, 2024 Assessment & Plan (1) Intractable low back pain: (2) Spinal stenosis: (3) Degenerative disc disease: (4) Hypotension: Plan Patient is a 54-year-old male with past medical history of DILLAN, HTN, HLD, Froin syndrome, CAD s/p 2 CHRISTIANA to LAD, chronic back pain s/p numerous lumbar spine surgeries, cervical discectomy and fusion who presents after his was unable to get him out of his chair due to acute severe lower back pain radiating down left greater than right lower extremities that began 09/26 after standing up from his workbench. Patient has had difficulty with ambulation and specifically ambulating to the bathroom so he is being admitted for pain control, ambulatory dysfunction, and have orthopedic spine eval. #Intractable back pain/lumbar HNP with radiculopathy- Hx numerous spinal surgeries including 5 lumbar spine (most recent 2003 with Marily Vitale) and 1 cervical spine ([address] Mejía). Lumbar spine MRI showed no acute process, postop changes of L4-S1, productive osseous changes at sites of bony a nkylosis/fusion at surgical sites resulting in impingement of transversing and exiting nerve roots. Patient denies any concerning symptoms as in saddle anesthesia, urinary or bowel incontinence, leg drop. Patient with difficulty ambulating 2/2 pain. Seen by orthopedic spine surgeon who ordered CT lumbar spine which was negative for fractures but orthospine does think there is an acutely herniated disc at L2-L3 causing moderate stenosis. He recommended pain management injections but patient declines that at this time as it has caused him vasovagal symptoms in the past and has not been effective. - Continue pain control with scheduled p.o. Tylenol, Toradol 15mg IV Q6H, and IV morphine but lower dose of morphine to 4 mg for moderate pain and 8 mg for severe pain - Continue muscle spasm control with Valium 10mg po q6h - Continue scheduled Voltaren gel and K Pad prn - Increase Decadron to 6 Mg IV twice daily - PT/OT ordered #hypotension - suspect 2/2 IV opioids; patient also reports a history of vasovagal response to pain-hypotension now resolved. He also received IV fluids - Continue to hold losartan - Monitor BPs #CAD/HLD - s/p PCI LAD x 2 CHRISTIANA 09/2023 on aspirin and Brilinta. Stable, no acute issues, no chest pain. I discussed his care with his assistant manager trainee, Dr. Carty -Discontinue aspirin and Brilinta and start Plavix 75 Mg p.o. once daily - Continue fenofibrate, statin #GERD - stable - continue PPI #depression/anxiety/insomnia - stable - continue sertraline and trazodone #DILLAN/allergies- does not currently use CPAP - Continue*Terrazine, Singulair VTE ppx: SCDs Dispo: Continued stay on med/surg Admission and Anticipated Discharge Date Admission Date: September 27, 2024 Subjective Patient continues to have severe pain in his lower back with muscle spasms and severe pain and burning sensation down through bilateral legs but left greater than right. This is much worse than his chronic pain and issues. He denies fevers or chills, no bowel or bladder issues. He reports the Toradol helps more than the morphine I discussed his antiplatelet therapy with his assistant manager trainee, Dr. Carty who is in agreement to switch to Plavix alone Physical Exam Constitutional: WD/WN, vitals as above Respiratory: normal respiratory effort, lungs clear to auscultation Cardiovascular: RRR, no murmur, no edema Gastrointestinal (Abdomen): normal bowel sounds, soft, nontender, no hepatosplenomegaly Neurologic: deep tendon reflexes 2+ bilaterally (And 3+ right patellar), moves all extremities and + focal motor deficit (4/5 strength with left ankle dorsiflexion and plantarflexion) Psychiatric: A+Ox3, euthymic affect Results & Data Results & Data Vital Signs (Past 12 Hours) Vital Signs Temp Pulse Resp BP Pulse Ox O2 Del Method 09/28/24 07:21 36.6 C 82 16 127/70 96 Room Air 09/28/24 01:30 36.7 C 72 22 125/74 95 Room Air 09/28/24 01:05 Room Air 09/28/24 00:39 75 18 106/63 95 Room Air Laboratory Results No labs for review Diagnostic Findings CT lumbar spine reviewed PG Care Time/CCT Total # of Minutes Spent Total Time Spent with Patient: Total time spent is greater than 50% in coordination of care (as documented) at patient's floor/unit and/or counseling patient: Coding Level of Care Code 46557 SUB INP/OBS CARE 3/50MIN Diagnoses Intractable low back pain M54.59 Spinal stenosis M48.00 Degenerative disc disease Hypotension I95.9
--- NOTE | 2024-09-28 12:59 | Orthopedic Consultation ---
Date of Consultation September 28, 2024 Assessment & Plan (1) Lumbar radicular pain: Assessment lumbar radiculopathy. Plan at this time had the opportunity to review the CAT scan and MRI of the lumbar spine. I appreciate solid fusion L4- L5 L5-S1. There is a small central disc protrusion L2-L3 that appears to be acute in nature. There is moderate stenosis at this level. There is appreciable facet appropriate L3-L4. However do not appreciate evidence of instability vacuum phenomenon or gross neural compression to account for his current clinical presentation. I will continue with medical management at this time. I would like to arrange for interventional pain management to attempt some diagnostic therapeutic injections at the L3-L4 level. History of Present Illness Reason for Consultation: Patient complaining of back and bilateral leg pain Attending Physician: Fabiola Brown MD History of Present Illness This is a 54-year-old male who presents with several months worth of worsening back pain rating into the buttock anterior thighs extending down to his feet. He states is incapacitating nature requiring emergency room visit and ultimately hospitalization yesterday. He denies any precipitating trauma fall or event. Does have a history of previous lumbar fusion. Allergies Allergy/AdvReac Type Severity Reaction Status Date / Time hydromorphone Allergy Severe SHORTNESS Verified 09/27/24 19:39 OF BREATH Penicillins Allergy Severe ALLERGY TO Verified 09/27/24 19:39 [id number] doxycycline Allergy Intermediate BLISTERS/HI Verified 09/27/24 19:39 VES lamotrigine Allergy Intermediate tremors Verified 09/27/24 19:39 clindamycin AdvReac Intermediate NAUSEA Verified 09/27/24 19:39 eletriptan AdvReac Mild nausea/vomi Verified 09/27/24 19:39 ting Home Medications Medication Instructions Recorded Confirmed Type tadalafil 5 mg tablet 20 mg (4 x 5 mg) PO ONCE PRN 04/13/23 09/27/24 Rx sexual activity #30 tabs aspirin 81 mg tablet,delayed 81 mg PO QAM #90 tabs 09/07/23 09/27/24 Rx release nitroglycerin 0.4 mg sublingual 0.4 mg sublingual Q5M PRN chest 09/07/23 09/27/24 Rx tablet (Nitrostat) pain #1 btl losartan 25 mg tablet 25 mg PO QAM #90 tabs 11/03/23 09/27/24 Rx pantoprazole 40 mg tablet,delayed 40 mg PO QAM #90 tabs 01/14/24 09/27/24 Rx release sertraline 100 mg tablet (Zoloft) 100 mg PO QAM #90 tabs 03/31/24 09/27/24 Rx trazodone 150 mg tablet 150 mg PO HS #90 tabs 03/31/24 09/27/24 Rx atorvastatin 40 mg tablet 40 mg PO QAM 05/23/24 09/27/24 History fenofibrate nanocrystallized 145 145 mg PO QAM 05/23/24 09/27/24 History mg tablet montelukast 10 mg tablet 10 mg PO QPM 05/23/24 09/27/24 History ticagrelor 90 mg tablet (Brilinta) 90 mg PO BID #180 tabs 07/12/24 09/27/24 Rx albuterol sulfate 90 mcg/actuation 2 puff inhalation Q6H PRN 08/21/24 09/27/24 Rx aerosol inhaler Shortness Of Breath Or Wheezing #18 grams levocetirizine 5 mg tablet (Xyzal) 5 mg PO PM 09/27/24 09/27/24 History Patient History Medical History Hypoxia NSTEMI (non-ST elevated myocardial infarction) Viral pneumonia Chest pain Disc degeneration, lumbar Esophageal reflux Obstructive sleep apnea Migraine with aura Parainfluenza virus bronchitis 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 believed r/t the Froin's syndrome. treated at [facility]. HOSPITALIZED 2013 AND 2016 "BELIEVES RELATED TO GABAPENTIN NOT BROKEN DOWN" Surgical History History of colonoscopy (~09/2021) Family history of reaction to anesthesia BROTHER>NAUSEA Cyst REMOVED FROM BACK S/P lumbar and lumbosacral fusion by anterior technique 2003 [place] teeth removed S/P cervical spinal fusion GOOD ROM History of esophagogastroduodenoscopy (EGD) History of lumbar fusion TOTAL 5 LUMBAR SURGERIES (4 POSTERIOR/1 ANTERIOR>LAST LUMBAR) Family History Grandfather (Maternal) Diabetes Mother FHx: skin cancer Sinus disorder Grandmother (Maternal) FHx: stomach cancer Brother Asthma Sinus disorder Father Cardiac disorder Lumbar disc disease Parkinson disease Aunt Diabetes Uncle Diabetes Grandmother Cancer Other Gallbladder disease Heart disease Hypertension Social History Smoking Status: Former smoker Tobacco Type: Cigars Second Hand Exposure: Yes; Do You Dip or Chew Tobacco: No; Hx Alcohol Use: Yes Alcohol type: beer Alcohol Intake Frequency: 2-4 x/Month Hx Substance Use: No Preferred Language: Bulgarian Communication Ability: Effective Visual Impairment: No Limitations Hearing Ability: Normal Wood Products Manufacturer Required: No Beliefs That Will Affect Care: None marital status: Current Living Situation: Spouse and Family Current Living Situation Comment: lives with and children current occupational status: employed 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 He demonstrates breakaway weakness to detailed testing lower extremities. Sensory appears intact. There is tension signs with straight leg raising. Results & Data Vital Signs (Past 12 Hours) Vital Signs Temp Pulse Resp BP Pulse Ox O2 Del Method 09/28/24 07:21 36.6 C 82 16 127/70 96 Room Air 09/28/24 01:30 36.7 C 72 22 125/74 95 Room Air 09/28/24 01:05 Room Air
[2024-09-28] MEDS: CETIRIZINE HCL 10 MG TABLET PO SCH (20:15)
[2024-09-28] MEDS: traZODone HCL 50 MG TAB PO SCH (20:16)
[2024-09-28] MEDS: DOCUSATE SODIUM 100 MG CAP PO SCH (20:16)
[2024-09-28] MEDS: POLYETHYLENE (MIRALAX) 17 GM PACK PO PRN (20:30)
[2024-09-29] MEDS: CLOPIDOGREL BISULFATE 75 MG TAB PO SCH (08:22)
--- NOTE | 2024-09-29 12:50 | Hospitalist Progress Note ---
Date of Service September 29, 2024 Assessment & Plan (1) Intractable low back pain: (2) Spinal stenosis: (3) Degenerative disc disease: (4) Hypotension: Plan Patient is a 54-year-old male with past medical history of DILLAN, HTN, HLD, Froin syndrome, CAD s/p 2 CHRISTIANA to LAD, chronic back pain s/p numerous lumbar spine surgeries, cervical discectomy and fusion who presents after his was unable to get him out of his chair due to acute severe lower back pain radiating down left greater than right lower extremities that began 09/26 after standing up from his workbench. Patient has had difficulty with ambulation and specifically ambulating to the bathroom so he is being admitted for pain control, ambulatory dysfunction, and have orthopedic spine eval. #Intractable back pain/lumbar HNP with radiculopathy- Hx numerous spinal surgeries including 5 lumbar spine (most recent 2003 with Marily Vitale) and 1 cervical spine ([address] Mejía). Lumbar spine MRI showed no acute process, postop changes of L4-S1, productive osseous changes at sites of bony a nkylosis/fusion at surgical sites resulting in impingement of transversing and exiting nerve roots. Patient denies any concerning symptoms as in saddle anesthesia, urinary or bowel incontinence, leg drop. Patient with difficulty ambulating 2/2 pain. Seen by orthopedic spine surgeon who ordered CT lumbar spine which was negative for fractures but orthospine does think there is an acutely herniated disc at L2-L3 causing moderate stenosis. He recommended pain management injections and pt now agreeable to this - will reach out to Cardiology about if ok to hold Plavix for pain management injection next week - make valium 10mg po q6h scheduled rather than prn as this seems to help - add heating pad scheduled qshift - Continue pain control with scheduled p.o. Tylenol, Toradol 15mg IV Q6H, and IV morphine 4 mg for moderate pain and 8 mg for severe pain - Continue scheduled Voltaren gel - dc Decadron as already getting toradol - PT/OT ordered -needs wheeled walker for home use #hypotension - suspect 2/2 IV opioids; patient also reports a history of vasovagal response to pain-hypotension now resolved. He also received IV fluids - Continue to hold losartan - Monitor BPs #CAD/HLD - s/p PCI LAD x 2 CHRISTIANA 09/2023 on aspirin and Brilinta. Stable, no acute issues, no chest pain. I discussed his care with his teacher specialist, Dr. Carty -Discontinued aspirin and Brilinta and started Plavix 75 Mg p.o. once daily-will d/w Cardiology if ok to hold for injection of spine - Continue fenofibrate, statin #GERD - stable - continue PPI #depression/anxiety/insomnia - stable - continue sertraline and trazodone #DILLAN/allergies- does not currently use CPAP - Continue Zyrtec, Singulair VTE ppx: SCDs Dispo: Continued stay on med/surg , possible dc to home tomorrow if pain better controlled discused care with at bedside on 09/29 Admission and Anticipated Discharge Date Admission Date: September 27, 2024 Subjective Still no BM. Continues to have severe lower back muscle spasms and pain in back down L>R LEs. Discussed his care with Dr. Mejía at bedside. He was able to ambulate a little in halls with PT and needs a walker. Physical Exam Constitutional: WD/WN, vitals as above Respiratory: normal respiratory effort, lungs clear to auscultation Cardiovascular: RRR, no murmur, no edema Gastrointestinal (Abdomen): normal bowel sounds, soft, nontender, no hepatosplenomegaly Neurologic: deep tendon reflexes 2+ bilaterally (And 3+ right patellar), moves all extremities and + focal motor deficit (4/5 strength with left ankle dorsiflexion and plantarflexion) Psychiatric: A+Ox3, euthymic affect Results & Data Results & Data Vital Signs (Past 12 Hours) Vital Signs Temp Pulse Resp BP Pulse Ox O2 Del Method 09/29/24 07:49 36.5 C 71 19 122/72 96 Room Air PG Care Time/CCT Total # of Minutes Spent Total Time Spent with Patient: Total time spent is greater than 50% in coordination of care (as documented) at patient's floor/unit and/or counseling patient: Coding Level of Care Code 74247 SUB INP/OBS CARE 2/35MIN Diagnoses Intractable low back pain M54.59 Spinal stenosis M48.00 Degenerative disc disease Hypotension I95.9
[2024-09-29] MEDS: POLYETHYLENE (MIRALAX) 17 GM PACK PO SCH (14:26)
[2024-09-29] MEDS: MAGNESIUM HYDROXIDE SUSP 30 ML UDC PO ONE (14:26)
--- NOTE | 2024-09-29 14:42 | Orthopedic Progress Note ---
Date of Service September 29, 2024 Assessment & Plan (1) Lumbar radicular pain: Plan: Had a discussion today with the patient and his was in the room we have reviewed his CAT scan and MRI findings. I see no indication for urgent surgical intervention. We are going to investigate whether he can hold his Plavix and pursue interventional pain management for injections at the L2-L3 L3-L4 level. Admission and Anticipated Discharge Date Admission Date: September 27, 2024 Subjective Patient continues to struggle with back spasms but feels his symptoms have improved. Physical Exam Physical Exam: On exam sensory is intact. Strength deficits noted to the left dorsiflexion established. Right lower extremity 5/5. Results & Data Vital Signs (Past 12 Hours) Vital Signs Temp Pulse Resp BP Pulse Ox O2 Del Method 09/29/24 07:49 36.5 C 71 19 122/72 96 Room Air
[2024-09-29] MEDS: diazePAM 5 MG TABLET PO SCH (17:35)
[2024-09-29 19:46] VITALS: TEMP 97.5; O2SAT 97
[2024-09-29] MEDS: SENNA 8.6 MG TAB PO SCH (20:19)
[2024-09-30 08:23] VITALS: BP 116/76; PULSE 56; RESP 18
[2024-09-30] MEDS ORDERED: oxyCODONE HCL IR 5 MG TAB (IMMEDIATE RELEASE) PO PRN ×2 (08:48)
--- NOTE | 2024-09-30 11:11 | Discharge Summary ---
Discharge Summary Date of Service September 30, 2024 Principal Dx & Hospital Course #1 = Principal Diagnosis (1) Intractable low back pain: (2) Spinal stenosis: (3) Degenerative disc disease: (4) Hypotension: Plan Patient is a 54-year-old male with past medical history of DILLAN, HTN, HLD, Froin syndrome, CAD s/p 2 CHRISTIANA to LAD, chronic back pain s/p numerous lumbar spine surgeries, cervical discectomy and fusion who presents after his was unable to get him out of his chair due to acute severe lower back pain radiating down left greater than right lower extremities that began 09/26 after standing up from his workbench. Patient has had difficulty with ambulation and specifically ambulating to the bathroom so he is being admitted for pain control, ambulatory dysfunction, and have orthopedic spine eval. #Intractable back pain/lumbar HNP with radiculopathy- Hx numerous spinal surgeries including 5 lumbar spine (most recent 2003 with Marily Vitale) and 1 cervical spine ([address] Mejía). Lumbar spine MRI showed no acute process, postop changes of L4-S1, productive osseous changes at sites of bony ankylosis/fusion at surgical sites resulting in impingement of transversing and exiting nerve roots. Patient denies any concerning symptoms as in saddle anesthesia, urinary or bowel incontinence, leg drop. Patient with difficulty ambulating 2/2 pain. Seen by orthopedic spine surgeon who ordered CT lumbar spine which was negative for fractures but orthospine does think there is an acutely herniated disc at L2-L3 causing moderate stenosis. He recommended pain management injections and pt now agreeable to this. Pain and muscle spasms were improved after receiving IV steroids, scheduled Valium, IV morphine and p.o. oxycodone as well as IV Toradol. Discussed with cardiology-okay to hold Plavix for pain management interventional injections -DC to home with valium 10mg po q6h as needed spasms, oxycodone 5 to 10 mg p.o. every 4 hours as needed moderate to severe pain, Tylenol for mild pain, and methylprednisolone Dosepak -Continue heating pad -Avoid NSAIDs and hold Plavix starting 10/02 for upcoming pain management injection on 10/09 -Able to ambulate with cane/walker on the day of discharge-stable to go home #Hypotension - suspect 2/2 IV opioids; patient also reports a history of vasovagal response to pain-hypotension now resolved. He also received IV fluids. Blood pressures are now normal - Continue to hold losartan on discharge #CAD/HLD - s/p PCI LAD x 2 CHRISTIANA 09/2023 on aspirin and Brilinta. Stable, no acute issues, no chest pain. I discussed his care with his technical stenographer, Dr. Carty -Discontinued aspirin and Brilinta and started Plavix 75 Mg p.o. once daily-okay to hold this for 7 days prior to pain management injection-hold starting and resume when safe to do so after pain management injection in the spine - Continue fenofibrate, statin #GERD - stable - continue PPI #depression/anxiety/insomnia - stable - continue sertraline and trazodone #DILLAN/allergies- does not currently use CPAP - Continue Zyrtec, Singulair VTE ppx: SCDs Dispo: DC to home Notes For Next Care Provider Medication Changes From Visit See list Admission HPI Per Admitting Provider Patient is a 54-year-old male with past medical history of DILLAN, hypertension, hyperlipidemia, Froin syndrome, NSTEMI s/p PCI LAD x 2 CHRISTIANA 09/2023 on aspirin and Brilinta, chronic back pain s/p numerous lumbar spine surgeries. Patient presented via EMS after his was unable to get him out of his chair due to significantly worsened back pain that began 09/26 after standing up from his workbench. Patient has had difficulty with ambulation and specifically ambulating to the bathroom so he is being admitted for pain control, ambulatory dysfunction, and have orthopedic spine eval. Patient seen at bedside with his present. He stated yesterday he stood up from his work bench and developed severe 10/10 back pain that radiated around his hips and down the anterior sides of his left legs, left is greater than worse. He stated his pain is in the L3/L4 region. Patient has a long history of back pain having 5 lumbar spine surgeries most recent 2003 with Nigel Vitale and 1 cervical spine triple level fusion in [address] Mejía. Patient called his Ortho spine surgeon Dr. Mejía who recommended he come into the ED. Handoff from the ED stated that they spoke with Dr. Mejía who recommended MRI and if pain improves patient can discharge home however if still having difficulty with ambulation to be admitted and orthopedics will see in the morning. Patient stated his chronic bilateral lower extremity numbness is slightly worse than his baseline. He denies any saddle anesthesias or leg drop, dizziness/lightheadedness, bowel or bladder incontinence. Patient has had long- term issues and stated Tylenol and lidocaine patch do not relieve his pain. He has an anaphylactic allergy to Dilaudid. Patient has already received 30 Mg IV Toradol, 20 Mg IV morphine, 0.5 Mg IV Ativan, Valium 10 Mg IV in the ED. Patient stated typically his pain responds well to morphine, Toradol, and Valium. Patient still complaining of 10/10 pain even after receiving numerous IV pain measures. Patient has a history of occasional social cigar use, declines need for nicotine patch. He drinks several beers per week, no chronic daily use. He still needs his evening medications. He stated he was supposed to transition off aspirin and Brilinta and to Plavix at the end of the month with his technical stenographer, would like for us to reach out to them to coordinate this. He wishes to be full code. Has appointment with PCP on Wednesday. Discharge Exam Constitutional WD/WN, vitals as above Respiratory normal respiratory effort, lungs clear to auscultation Cardiovascular RRR, no murmur, no edema Gastrointestinal (Abdomen) normal bowel sounds, soft, nontender, no hepatosplenomegaly Neurologic moves all extremities Psychiatric A+Ox3, euthymic affect Discharge Plan Discharge Items Patient Disposition: Home - Self-Care Reason For Visit: INTRACTABLE PAIN Discharge Diagnosis: Lumbar herniated disc with radiculopathy Condition on Discharge: Fair Activity: As commented below Lifting: No more than 5 pounds Bathing: No limitations Exercise/Sports: Gradually increase as tolerated Non-emergency contact: Primary Care Provider, Surgeon and Pain Management Call non-emergency contact if: you have any medication questions, your symptoms worsen, your pain is not controlled and you have a fever Follow-up/Referrals: Marcos Henderson MD, FIPP [Physician] - 10/09/24 (Follow-up as scheduled for your back injection on 10/09.) Ana Rosa Murguia CRNP [Primary Care Provider] - 10/11/24 10:30 am (Follow-up within 1-2 weeks) Diet: Regular Addtl Attending Provider Instructions: You can take Valium every 6 hours as needed for muscle spasms, Tylenol for mild pain, and oxycodone as needed for moderate to severe back pain. Do not take any NSAIDs and please hold your Plavix starting the morning of 10/02 for your back injection planned for 10/09. Your aspirin and Brilinta were both discontinued permanently. You will be given a methylprednisolone Dosepak to take over the next 6 days to also help with pain and inflammation. You had low blood pressure when you came in-please continue to not take your losartan for now. Pending Studies at Discharge: No Stand-Alone Forms: My [facility], Pain - Opioid Pain Management, Smoking Cessation Medications and DC Order Prescriptions: New clopidogrel 75 mg Tablet 75 mg PO QAM Qty: 30 0RF acetaminophen [Tylenol Extra Strength] 500 mg Tablet 1,000 mg PO Q8H Qty: 30 0RF diazepam 10 mg tablet 10 mg PO Q6H PRN (Reason: muscle spasm) Qty: 30 0RF oxycodone 5 mg Tablet 5 - 10 mg PO Q4H PRN (Reason: moderate-severe pain) Qty: 30 0RF sennosides [Senokot] 8.6 mg Tablet 17.2 mg PO HS Qty: 60 0RF polyethylene glycol 3350 [Miralax] 17 gram Powder In Packet 17 g PO DAILY Qty: 30 0RF docusate sodium 100 mg Capsule 100 mg PO BID Qty: 60 0RF methylprednisolone 4 mg tablets,dose pack 4 mg PO DAILY Qty: 21 0RF Rx Instructions: Follow directions on pack Continued pantoprazole 40 mg tablet,delayed release (DR/EC) 40 mg PO QAM Qty: 90 3RF tadalafil 5 mg tablet 20 mg PO ONCE PRN (Reason: sexual activity) Qty: 30 11RF sertraline [Zoloft] 100 mg tablet 100 mg PO QAM Qty: 90 3RF trazodone 150 mg tablet 150 mg PO HS Qty: 90 3RF albuterol sulfate 90 mcg/actuation HFA aerosol inhaler 2 puff inhalation Q6H PRN (Reason: Shortness Of Breath Or Wheezing) Qty: 18 3RF nitroglycerin [Nitrostat] 0.4 mg Tablet, Sublingual 0.4 mg sublingual Q5M PRN (Reason: chest pain) Qty: 1 0RF atorvastatin 40 mg tablet 40 mg PO QAM montelukast 10 mg tablet 10 mg PO QPM Rx Instructions: TAKE 1 TABLET DAILY IN THE EVENING fenofibrate nanocrystallized 145 mg tablet 145 mg PO QAM levocetirizine [Xyzal] 5 mg Tablet 5 mg PO PM Held losartan 25 mg tablet 25 mg PO QAM Qty: 90 3RF Hold Instructions: Resume on 10/10/24. Hold until PCP advises you to restart Discontinued Brilinta 90 mg tablet 90 mg PO BID Qty: 180 2RF diazepam 5 mg tablet 5 mg PO .COMPLEX PRN (Reason: anxiety) Qty: 3 0RF Rx Instructions: 5 mg orally 1 PO qhs night prior, then 1.5 hours before procedure, then may repeat 0.5 hours prior to procedure; PRN; aspirin 81 mg Tablet,Delayed Release (Dr/Ec) 81 mg PO QAM Qty: 90 3RF Discharge Orders: Discharge Order (Routine); Ordered 09/30/24 Ordered By: Fabiola Brown Admission Data Admit Date/Time: 09/27/24 23:33 Attending Provider: Fabiola Brown Admit Provider: Alicia Ford Primary Care Provider: Ana Rosa Murguia Other Providers: Ana Rosa Rico; Troy Mejía; Aubree Alejandro Other Interventions: Discharge Summary Assessment (RN) Last Done: 09/30/24 11:28 Hospital Stay Data Consultations 09/27/24 22:46 ED Decision to Admit Stat 09/28/24 01:25 Consult Orthopedic Spine Surgery Routine 09/28/24 07:40 Consult Pain Management Routine Diagnostic Imagining Performed 09/27/24 18:06 MRI Lumbar Spine [MR lumbar spine wo con] Stat 09/28/24 09:27 CT lumbar spine wo con Urgent Pending Results Patient Have Any Pending Studies at Discharge: No Discharge Instructions Given to Patient (Per Discharging Provider) You can take Valium every 6 hours as needed for muscle spasms, Tylenol for mild pain, and oxycodone as needed for moderate to severe back pain. Do not take any NSAIDs and please hold your Plavix starting the morning of 10/02 for your back injection planned for 10/09. Your aspirin and Brilinta were both discontinued permanently. You will be given a methylprednisolone Dosepak to take over the next 6 days to also help with pain and inflammation. You had low blood pressure when you came in-please continue to not take your losartan for now. Total Time Total Time Spent Total Time Spent (In Minutes): 35 minutes Total Time Includes: Examination of the Patient, Discharge Planning and Medication Reconciliation Coding Level of Care Code 70074 INP/OBS DISCH >30 MIN Diagnoses Intractable low back pain M54.59 Spinal stenosis M48.00 Degenerative disc disease Hypotension I95.9
== END 2024-09-30 13:04 | disposition home or self-care (01) ==
LOC: 3N 16:35 → ED 16:35 → SUATTDRO 23:33 → 3N 09-28 01:05

== ENCOUNTER 2025-01-22 11:30 | Inpatient (IN) ==
--- NOTE | 2025-01-22 11:38 | Emergency Department Note ---
Impression & Plan Fall, Low back pain, CHI (closed head injury) ED Provider Note NAME: PROMISE BALCKMAN AGE: 54 SEX: M : 1970 ARRIVES VIA: Ambulance INFORMANT: Patient, ED PROVIDER(S): Willie Mix MD CHIEF COMPLAINT: MEDICAL DECISION MAKING: Patient presents due to concern for fall and low back pain. Patient also with head strike on Plavix. CT head and lumbar spine performed. Patient reportedly had received a significant mount of IV morphine prior to arrival so this was deferred initially and the patient was ordered IV methylprednisolone lidocaine patch and Tylenol. Patient's blood work shows a normal white count hemoglobin and platelet count. The patient's kidney function is unremarkable. The patient CT lumbar spine is unremarkable CT head negative. The patient did receive a dose of IV morphine 4 mg. Subsequent reassessment still with pain so was given IV fentanyl. Patient reportedly was up I did take 1 or 2 steps but still has significant pain and cannot continue onward. I did speak with the on-call hospitalist service and the patient was admitted to medicine for pain management. Discussion w/ other healthcare providers: Dr. Parson inpatient medicine service Prior /Outside records reviewed: None Differential diagnosis: Musculoskeletal, disc herniation, fracture, sprain, strain, cord compression, discitis, sciatica, cauda equina, infection, renal colic, as well as other pathologies were considered. Diagnostics, as interpreted by me: ECG: None Cardiac monitoring: An order was placed for continuous cardiac monitoring. The monitor shows a rate of 72 with sinus rhythm. Patient was placed on pulse oximetry Medical decision rules: Wallisian head CT rule Imaging studies: I informally interpreted the patient's CT head does not show obvious ICH with formal report to follow. HPI: Patient presents due to concern for fall. He reports that he was getting up and out of bed and in doing so his leg gave out and he fell on his back and did hit his head. He does take Plavix. Denies any LOC but does have significant lower back pain reportedly received 15 of Toradol IV in addition to 20 of morphine IV prior to arrival. Patient states that he does have chronic back issues and has had prior back surgeries. The patient also reports that he has had epidural injections in the past. He denies any chest pains or shortness of breath. No head neck or lower extremity pain but does have decreased range of motion of his left leg secondary to his back pain. PAST MEDICAL HISTORY: See Below PAST SURGICAL HISTORY: See Below SOCIAL HISTORY: See Below HOME MEDICATIONS: See Below ALLERGIES: See Below VITALS: See Below PHYSICAL EXAMINATION: GENERAL: NAD, non-toxic. Wearing glasses. Head: Normocephalic atraumatic. EYE EXAM: Normal conjunctiva. PERRL, no anisocoria and EOM's grossly intact w/o pain. OROPHARYNX: Moist mucus membranes, grossly normal dentition. NECK: Trachea midline, no stridor. No midline C-spine TTP. LUNGS: Clear to auscultation. Normal chest wall mechanics. HEART: NSR, no MRG. ABDOMEN: Abdomen soft, non-tender, no masses, no rebound or guarding. BACK: No CVA TTP. Midline LBP lumbar spine. No obvious step-offs. SKIN: No rashes and no bruising. UPPER EXTREMITIES: Upper extremities are grossly normal. LOWER EXTREMITIES: Grossly normal, no edema. Decreased range of motion with trying to raise left leg up off bed. NEURO EXAM: Awake and alert, follows commands, no obvious facial asymmetry, normal speech, moves all 4 extremities. Past Med/Surg History Problem List (Updated 01/23/25 @ 15:07 by Willie Mix MD) CHI (closed head injury) (Acute) Low back pain (Acute) Fall (Acute) Neuroforaminal stenosis of lumbar spine Postlaminectomy syndrome of lumbosacral region Lumbar radicular pain Ambulatory dysfunction (Acute) Intractable low back pain (Acute) Degenerative disc disease Spinal stenosis Cigar smoker Allergic rhinitis with postnasal drip Chronic cough Abnormal CT scan, chest Acute respiratory failure with hypoxia BYRD (dyspnea on exertion) (Acute) Pneumonia involving right lung (Acute) Failure of outpatient treatment Acute on chronic respiratory failure with hypoxia Multifocal pneumonia Pneumonia (Acute) Migraine Coronary artery disease Epidermal cyst Sebaceous cyst De Quervain's tenosynovitis Depression (Chronic) Anxiety (Chronic) 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 [place] She[place] [place] Dyslipidemia (Chronic) Hypertension (Chronic) Allergic rhinitis Post traumatic stress disorder (Chronic) Cervical spinal stenosis (Chronic) Thoracic degenerative disc disease (Chronic) Erectile dysfunction (Chronic) Chronic daily headache Medical History Hypoxia NSTEMI (non-ST elevated myocardial infarction) Viral pneumonia Chest pain Disc degeneration, lumbar Esophageal reflux Obstructive sleep apnea Migraine with aura Parainfluenza virus bronchitis Froin's syndrome FOLLOWED BY DR. SHEA Failed back surgical syndrome Post traumatic stress disorder Anxiety and depression FOLLOWS COUNSELOR 1 X PER MONTH Hypertension Hyperlipidemia Sleep apnea no device Left lateral epicondylitis History of suicide attempt Status epilepticus (10/19/13) No problems since, had mini-seizures r/t "body shutting down". believed r/t the Froin's syndrome. treated at [facility]. HOSPITALIZED 2013 AND 2016 "BELIEVES RELATED TO GABAPENTIN NOT BROKEN DOWN" Surgical History EIC (epidermal inclusion cyst) (12/14/24) FINAL DIAGNOSIS In office procedure Dr. Vasquez Skin, right lower back, excision: - Epidermal inclusion cyst History of colonoscopy (~09/2021) Family history of reaction to anesthesia BROTHER>NAUSEA Cyst REMOVED FROM BACK S/P lumbar and lumbosacral fusion by anterior technique 2003 [place] teeth removed S/P cervical spinal fusion GOOD ROM History of esophagogastroduodenoscopy (EGD) History of lumbar fusion TOTAL 5 LUMBAR SURGERIES (4 POSTERIOR/1 ANTERIOR>LAST LUMBAR) Family History Grandfather (Maternal) Diabetes Mother FHx: skin cancer Sinus disorder Grandmother (Maternal) FHx: stomach cancer Brother Asthma Sinus disorder Father Cardiac disorder Lumbar disc disease Parkinson disease Aunt Diabetes Uncle Diabetes Grandmother Cancer Other Gallbladder disease Heart disease Hypertension Social History Smoking Status: Never smoker Tobacco Type: Cigars Second Hand Exposure: Yes; Do You Dip or Chew Tobacco: No; Hx Alcohol Use: Yes Alcohol type: beer Alcohol Intake Frequency: 2-4 x/Month Hx Substance Use: No Preferred Language: Wolof Communication Ability: Effective Visual Impairment: No Limitations Hearing Ability: Normal Audio Technician Required: No Beliefs That Will Affect Care: None marital status: Current Living Situation: Spouse and Family Current Living Situation Comment: 1 story home with 2 steps to enter home current occupational status: employed 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 How many Children do You have: 1 Other Information That Helps Us Care for You: No Feels Safe at Home: Yes Safety Concerns: Feels Safe At This Time Childhood Exposure to Second-Hand Smoke: No Diet: regular during the past year weight has: decreased > 10 lbs Dental Care, Regularly: Yes Physical Activity Frequency: Daily Seatbelt Use: always Sunscreen Use: No Assistive Devices: Cane and Walker Allergies Allergies Allergy/AdvReac Type Severity Reaction Status Date / Time hydromorphone Allergy Severe SHORTNESS Verified 12/28/24 09:14 OF BREATH Penicillins Allergy Severe ALLERGY TO Verified 12/28/24 09:14 [id number] doxycycline Allergy Intermediate BLISTERS/HI Verified 12/28/24 09:14 VES lamotrigine Allergy Intermediate tremors Verified 12/28/24 09:14 clindamycin AdvReac Intermediate NAUSEA Verified 12/28/24 09:14 eletriptan AdvReac Mild nausea/vomi Verified 12/28/24 09:14 ting gabapentin AdvReac Anaphylaxis Verified 12/28/24 09:14 Home Meds Home Medications Medication Instructions Recorded Confirmed fenofibrate nanocrystallized 145 145 mg PO QAM 05/23/24 01/22/25 mg tablet levocetirizine 5 mg tablet (Xyzal) 5 mg PO PM 09/27/24 01/22/25 acetaminophen 500 mg tablet 1,000 mg PO Q8H PRN Pain 10/09/24 01/22/25 (Tylenol Extra Strength) Previous Rx's Medication Instructions Recorded tadalafil 5 mg tablet 20 mg (4 x 5 mg) PO ONCE PRN 04/13/23 sexual activity #30 tabs nitroglycerin 0.4 mg sublingual 0.4 mg sublingual Q5M PRN chest 09/07/23 tablet (Nitrostat) pain #1 btl sertraline 100 mg tablet (Zoloft) 100 mg PO QAM #90 tabs 03/31/24 trazodone 150 mg tablet 150 mg PO HS #90 tabs 03/31/24 albuterol sulfate 90 mcg/actuation 2 puff inhalation Q6H PRN 08/21/24 aerosol inhaler Shortness Of Breath Or Wheezing #18 grams atorvastatin 40 mg tablet 40 mg PO QAM #90 tabs 10/10/24 clopidogrel 75 mg tablet 75 mg PO QAM #90 tabs 10/11/24 benzonatate 200 mg capsule 200 mg PO TID PRN cough #30 caps 11/14/24 montelukast 10 mg tablet 10 mg PO QPM #90 tabs 01/09/25 pantoprazole 40 mg tablet,delayed 40 mg PO QAM #90 tabs 01/09/25 release Results & Data (ED) Vital Signs Vital Signs - 24 hr 01/22/25 11:40 01/22/25 11:47 01/22/25 11:59 Temperature 36.8 C Temperature Source Oral Pulse Rate 85 70 Respiratory Rate 18 Respiratory Effort / Characteristics Non-Labored Spontaneous Respiratory Depth Normal Blood Pressure 144/98 H Blood Pressure Mean 113 Pulse Oximetry 95 93 Oxygen Delivery Method Room Air Room Air Sepsis Recent Fever Within 48 Hours No Sepsis New/Unexplained Change in Mental Status N/A Sepsis Action Taken by Nursing No Action Required Home Medications Current Medication List: was personally reviewed by me Laboratory Data Attestation: I reviewed the patient's lab results. 01/23/25 06:20 01/23/25 06:20 Lab Results 01/22/25 Range/Units 11:36 WBC 5.76 (4.8-10.8) K/ul RBC 5.48 (4.70-6.10) M/uL Hgb 16.3 (14.0-18.0) g/dl Hct 48.7 (42.0-52.0) % MCV 88.9 (80.0-100.0) fL MCH 29.7 (25.0-34.0) pg MCHC 33.5 (32.0-36.0) g/dL RDW Std Deviation 43.4 (36.4-46.3) fL RDW Coeff of Kacey 13.3 (11.5-14.5) % Plt Count 152 (130-400) K/uL MPV 9.1 L (9.4-12.4) fL Immature Gran % (Auto) 0.5 % Neut % (Auto) 59.0 % Lymph % (Auto) 27.3 % Alpine % (Auto) 8.5 % Eos % (Auto) 4.2 % Baso % (Auto) 0.5 % Neut # (Auto) 3.40 (1.40-6.50) K/uL Lymph # (Auto) 1.57 (1.20-3.40) K/uL Alpine # (Auto) 0.49 (0.11-0.59) K/uL Eos # (Auto) 0.24 (0.00-0.50) K/uL Baso # (Auto) 0.03 (0.00-0.20) K/uL Immature Gran # (Auto) 0.03 (0.01-0.20) K/uL Sodium 138 (136-145) mmol/L Potassium 4.4 (3.5-5.1) mmol/L Chloride 107 (98-107) mmol/L Carbon Dioxide 26 (21-32) mmol/L Anion Gap 5 (3-11) BUN 22 (6-23) mg/dl Creatinine 1.05 (0.6-1.4) mg/dl Est Cr Clr Drug Dosing 99.4 ml/min eGFR 84.35 BUN/Creatinine Ratio 21.0 H (10-20) Glucose 106 H (70-99(Fasting)) mg/dl Calcium 9.2 (8.6-10.3) mg/dl Administered Medications Acetaminophen (Acetaminophen 500 Mg Tab) 1,000 mg PO Q8H [facility] Stop: 02/22/25 08:29 Last Admin: 01/23/25 08:54 Dose: 1,000 mg Documented By: SHAWN Atorvastatin Calcium (Atorvastatin 40 Mg Tab) [address] [facility] Stop: 02/22/25 08:59 Last Admin: 01/23/25 08:56 Dose: 40 mg Documented By: SHAWN Cetirizine HCl (Cetirizine Hcl 10 Mg Tablet) 10 mg PO PM [facility] Stop: 02/21/25 20:59 Last Admin: 01/22/25 20:28 Dose: 10 mg Documented By: LINDY Clopidogrel Bisulfate (Cl[facility]idog[facility]ulfate 75 Mg Tab) [facility] [place]: 02/22/25 08:59 Last Admin: 01/23/25 08:56 Dose: 75 mg Documented By: SHAWN Diazepam (Diazepam 5 Mg Tablet) 10 mg PO Q6H PRN PRN Reason: Muscle spasm Stop: 02/21/25 17:15 Last Admin: 01/23/25 03:54 Dose: 10 mg Documented By: Admin: 01/22/25 20:28 Dose: 10 mg Documented By: LINDY Enoxaparin Sodium (Enoxaparin Inj 40 Mg/0.4 Ml Syr) 40 mg SQ Q24H [facility] Stop: 02/21/25 16:59 Last Admin: 01/22/25 17:59 Dose: 40 mg Documented By: SHAWN Fenofibrate (Fenofibrate Nanocrystallized 145 Mg Tablet) [address] [facility] Stop: 02/22/25 08:59 Last Admin: 01/23/25 08:56 Dose: 145 mg Documented By: SHAWN Ketorolac Tromethamine (Ketorolac Tromethamine 15 Mg/Ml Vial) 15 mg IV Q6H PRN PRN Reason: Pain Stop: 01/27/25 16:50 Last Admin: 01/23/25 08:55 Dose: 15 mg Documented By: Admin: 01/23/25 02:27 Dose: 15 mg Documented By: Admin: 01/22/25 20:29 Dose: 15 mg Documented By: LINDY Lidocaine (Lidocaine 5% 1 Patch) [address] [facility] Stop: 02/22/25 08:59 Last Admin: 01/23/25 08:57 Dose: Not Given Documented By: SHAWN Miscellaneous (Remove Lidoderm Patch) 1 each N/A DAILY@2100 [facility] Stop: 02/21/25 20:59 Last Admin: 01/22/25 20:32 Dose: 1 each Documented By: LINDY Miscellaneous (Remove Lidoderm Patch) 1 each N/A DAILY@2100 [facility] Stop: 02/21/25 20:59 Last Admin: 01/22/25 20:32 Dose: 1 each Documented By: LINDY Montelukast Sodium (Montelukast Sodium 10 Mg Tablet) 10 mg PO QPM [facility] Stop: 02/21/25 20:59 Last Admin: 01/22/25 20:28 Dose: 10 mg Documented By: LINDY Morphine Sulfate (Morphine Sulfate 2 Mg/Ml Carp) 2 mg IV Q4 PRN PRN Reason: Pain (8-10) Stop: 02/05/25 16:50 Last Admin: 01/23/25 14:00 Dose: 2 mg Documented By: Admin: 01/23/25 10:01 Dose: 2 mg Documented By: Admin: 01/23/25 01:07 Dose: 2 mg Documented By: Admin: 01/22/25 22:55 Dose: 2 mg Documented By: Admin: 01/22/25 18:01 Dose: 2 mg Documented By: SHAWN Pantoprazole Sodium (Pantoprazole 40 Mg Tab) 40 [facility] Stop: 02/22/25 08:59 Last Admin: 01/23/25 08:57 Dose: 40 mg Documented By: SHAWN Polyethylene Glycol (Polyethylene (Miralax) 17 Gm Pack) 17 gm PO DAILY PRN PRN Reason: Constipation Stop: 02/21/25 16:50 Last Admin: 01/23/25 10:21 Dose: 17 gm Documented By: SHAWN Pregabalin (Pregabalin 50 Mg Cap) 50 mg PO BID [facility] Stop: 02/22/25 09:29 Last Admin: 01/23/25 10:01 Dose: 50 mg Documented By: SHAWN Sertraline HCl (Sertraline Hcl 100 Mg Tablet) 100 [facility] Stop: 02/22/25 08:59 Last Admin: 01/23/25 08:56 Dose: 100 mg Documented By: SHAWN Trazodone HCl (Trazodone Hcl 50 Mg Tab) 150 mg PO [facility] Stop: 02/21/25 20:59 Last Admin: 01/22/25 20:28 Dose: 150 mg Documented By: LINDY Discontinued Medications Fentanyl Citrate (Fentanyl Citrate Pf 100 Mcg/2 Ml Vial) 100 mcg IV NOW STA Stop: 01/22/25 13:38 Last Admin: 01/22/25 13:45 Dose: 100 mcg Documented By: SHERINE Acetaminophen (Ofirmev) 1,000 mg in 100 mls @ 400 mls/hr IV NOW STA Stop: 01/22/25 12:08 Last Infusion: 01/22/25 12:52 Dose: Infused Documented By: Admin: 01/22/25 12:08 Dose: 400 mls/hr Documented By: HAYDEN Acetaminophen (Ofirmev) 1,000 mg in 100 mls @ 400 mls/hr IV Q8H [facility] Stop: 01/25/25 16:50 Last Infusion: 01/23/25 00:28 Dose: Infused Documented By: Admin: 01/23/25 00:11 Dose: 400 mls/hr Documented By: Admin: 01/22/25 17:58 Dose: Not Given Documented By: JJM Dexamethasone 6 mg/ Syringe 1.5 mls @ 1 mls/min IV Q24H [facility] Stop: 02/22/25 08:59 Last Admin: 01/23/25 09:53 Dose: Not Given Documented By: SHAWN Ketorolac Tromethamine (Ketorolac Tromethamine 15 Mg/Ml Vial) 15 mg IV NOW ONE Stop: 01/22/25 16:05 Last Admin: 01/22/25 16:11 Dose: 15 mg Documented By: DIMPLE Lidocaine (Lidocaine 5% 1 Patch) 1 patch TD NOW STA Stop: 01/22/25 11:55 Last Admin: 01/22/25 12:09 Dose: 1 patch Documented By: HAYDEN Methocarbamol (Methocarbamol 750 Mg Tablet) 750 mg PO NOW STA Stop: 01/22/25 11:55 Last Admin: 01/22/25 12:13 Dose: Not Given Documented By: HAYDEN Methocarbamol (Methocarbamol 750 Mg Tablet) 1,500 mg PO NOW STA Stop: 01/22/25 11:59 Last Admin: 01/22/25 12:09 Dose: 1,500 mg Documented By: HAYDEN Methylprednisolone (Methylprednisolone 125 Mg/2 Ml Vial) 125 mg IV NOW STA Stop: 01/22/25 11:55 Last Admin: 01/22/25 12:09 Dose: 125 mg Documented By: HAYDEN Morphine Sulfate (Morphine Sulfate 4 Mg/Ml 1 Ml Carp\\Vial) 4 mg IV NOW STA Stop: 01/22/25 13:07 Last Admin: 01/22/25 13:13 Dose: 4 mg Documented By: HAYDEN Morphine Sulfate (Morphine Sulfate 2 Mg/Ml Carp) 2 mg IV NOW STA Stop: 01/23/25 01:03 Last Admin: 01/23/25 01:22 Dose: Not Given Documented By: LINDY Imaging Data Radiologist's Impression: Lumbar Spine CT 01/22/25 11:57 CT lumbar spine wo con CLINICAL HISTORY: Back Pain . Fall. COMPARISON STUDY: 09/28/2024 FINDINGS: There is stable anterior plate screw fusion from L4 through S1. No hardware complication seen. No acute fracture or subluxation seen at the lumbar spine. There are stable mild diffuse degenerative changes. Stable small vertebral body hemangioma at L1. IMPRESSION: No lumbar spine fracture seen. ACT 112: Negative or not required by law. Electronically signed by: Vladislav Harmon M.D. 01/22/2025 12:[address] 01/22/25 11:58 CT SCAN OF THE BRAIN WITHOUT IV CONTRAST CLINICAL HISTORY: Fall. Head injury. COMPARISON STUDY: CT of the brain dated 09/05/2023 TECHNIQUE: Unenhanced axial CT scan of the brain is performed from the vertex to the skull base. Images are reviewed in the axial, sagittal, and coronal planes. A dose lowering technique was utilized adhering to the principles of ALARA. FINDINGS: Brain parenchyma: The brain parenchyma is normal in appearance. There is no hemorrhage, mass effect, or evidence of acute territorial ischemia by CT criteria. Mosqueda-white matter differentiation is preserved. No extra-axial fluid collection is seen. Ventricles, sulci, cisterns: Normal in configuration. Intracranial vasculature: There is mild atherosclerotic calcification of the cavernous carotid arteries. Calvarium: Unremarkable. Sinuses and mastoids: There is mild mucosal thickening within the right frontal sinus, the right sphenoid sinus, and the ethmoid sinuses. The mastoid air cells are well pneumatized. Orbits: The bony orbits are grossly intact. IMPRESSION: There is no hemorrhage, mass effect, or evidence of acute territorial ischemia by CT criteria. ACT 112: Negative or not required by law. Electronically signed by: Venkatesh Mckeon M.D. 01/22/2025 12:40 PM Discharge Plan Visit Data Chief Complaint: Fall Stated Complaint: INJURY ALERT, FALL, BACK PAIN ED Provider: Willie Mix Discharge Problem: Fall, Low back pain, CHI (closed head injury) Patient Disposition: Admitted As Inpatient Condition: Good Discharge Instructions Interventions: ED Discharge Assessment Last Done: 01/22/25 16:44 Discharge Problem: Fall Qualifiers: Encounter type: initial encounter Qualified Code(s): W19.XXXA - Unspecified fall, initial encounter Low back pain Qualifiers: Chronicity: acute Back pain laterality: midline Sciatica presence: with sciatica Sciatica laterality: sciatica of left side Qualified Code(s): M54.42 - Lumbago with sciatica, left side CHI (closed head injury) Qualifiers: Encounter type: initial encounter Qualified Code(s): S09.90XA - Unspecified injury of head, initial encounter
[2025-01-22] MEDS: ACETAMINOPHEN 1,000 MG/100 ML VIAL IV STA (12:08)
[2025-01-22] MEDS: METHOCARBAMOL 750 MG TABLET PO STA ×2 (12:09→12:13)
[2025-01-22] MEDS: LIDOCAINE 5% 1 PATCH TD STA (12:09)
[2025-01-22 12:14] LABS: Hematocrit (blood only) 48.7 % (42.0-52.0); Hemoglobin 16.3 g/dl (14.0-18.0); Immature Granulocytes # (auto) 0.03 K/uL (0.01-0.20); Immature Granulocytes % (auto) 0.5 %; Mean Corpuscular Hemoglobin 29.7 pg (25.0-34.0); Mean Corpuscular Volume 88.9 fL (80.0-100.0); Platelet Count 152 K/uL (130-400); RDW Standard Deviation 43.4 fL (36.4-46.3); Red Blood Count 5.48 M/uL (4.70-6.10); White Blood Count 5.76 K/ul (4.8-10.8)
[2025-01-22 12:28] LABS: Anion Gap 5.0 (3-11); Blood Urea Nitrogen 22.0 mg/dl (6-23); Calcium 9.2 mg/dl (8.6-10.3); Carbon Dioxide 26.0 mmol/L (21-32); Chloride 107.0 mmol/L (98-107); Creatinine Clr Calc Pharmacy 99.4 ml/min; Glucose 106.0 mg/dl (70-99(Fasting)); Potassium 4.4 mmol/L (3.5-5.1); Sodium 138.0 mmol/L (136-145)
--- NOTE | 2025-01-22 12:41 | CT Scan Report ---
CT lumbar spine wo con CLINICAL HISTORY: Back Pain . Fall. COMPARISON STUDY: 09/28/2024 FINDINGS: There is stable anterior plate screw fusion from L4 through S1. No hardware complication se en. No acute fracture or subluxation seen at the lumbar spine. There are stable mild diffuse degenera tive changes. Stable small vertebral body hemangioma at L1. IMPRESSION: No lumbar spine fracture seen. ACT 112: Negative or not required by law. Electronically signed by: Vladislav Harmon M.D. 01/22/2025 12:40 PM
--- NOTE | 2025-01-22 12:42 | CT Scan Report ---
CT SCAN OF THE BRAIN WITHOUT IV CONTRAST CLINICAL HISTORY: Fall. Head injury. COMPARISON STUDY: CT of the brain dated 09/05/2023 TECHNIQUE: Unenhanced axial CT scan of the brain is performed from the vertex to the skull base. Imag es are reviewed in the axial, sagittal, and coronal planes. A dose lowering technique was utilized a dhering to the principles of ALARA. FINDINGS: Brain parenchyma: The brain parenchyma is normal in appearance. There is no hemorrhage, mass effect, or evidence of acute territorial ischemia by CT criteria. Mosqueda-white matter differentiation is preser sonu. No extra-axial fluid collection is seen. Ventricles, sulci, cisterns: Normal in configuration. Intracranial vasculature: There is mild atherosclerotic calcification of the cavernous carotid arteri es. Calvarium: Unremarkable. Sinuses and mastoids: There is mild mucosal thickening within the right frontal sinus, the right sphe noid sinus, and the ethmoid sinuses. The mastoid air cells are well pneumatized. Orbits: The bony orbits are grossly intact. IMPRESSION: There is no hemorrhage, mass effect, or evidence of acute territorial ischemia by CT marya garay. ACT 112: Negative or not required by law. Electronically signed by: Venkatesh Mckeon M.D. 01/22/2025 12:40 PM
[2025-01-22] MEDS: MoRPHine SULFATE 4 MG/ML 1 ML CARP\\VIAL IV STA (13:13)
--- NOTE | 2025-01-22 15:51 | History & Physical Report ---
Date of Service January 22, 2025 Assessment & Plan (1) Lumbar radicular pain: (2) Ambulatory dysfunction: (3) Degenerative disc disease: Plan 54 y/o male with pmh of chronic back pain s/p numerous lumbar spine surgeries, cervical discectomy and fusion, migraines, CAD/ hx of NSTEMI x 2 CHRISTIANA, hypertension, hyperlipidemia, Anxiety/depression/ptdsd and DILLAN here due to acute back pain. Patient states had a fall from ground level this morning, his leg gave up. He hit his back and head during the fall. Denied any voiding retention, saddle anesthesia or BM incontinence. He refers worsening back pain that radiate to his left lower extremity with associated weakness and new right lower extremity pain. Patient will be admitted for IV pain management, PT/OT evaluation. #Lumbar stenosis/ Radiculopathy / Herniated disc at L2-L3 -Patient with history of various spinal surgeries (5 lumbar spinal surgery and 1 cervical spine). That presented with worsening lower back pain/ radiculopathy associated with LLE weakness and new RLE radiculopathy Denied any saddle anesthesia, , no urinary or bowel incontinence. States worsening ambulation and weakness during the past week. New right lower extremity pain. Worsening LLE weakness and paresthesias. Follows with Dr. Mejía outpatient as well as with pain management clinic (had a epidural injection on 12/2024) - continue pain control with schedule IV Tylenol, Toradol 15 mg q6 hr and morphine 2 mg Q4 Hr, lidocaine path (Patient with hx of vasovagal and SOB due to opioids on prev admission). - Received Methylprednisolone 125 mg once in the ED. continue Decadron 6 mg daily - Valium 10 mg Q6hr prn for muscle spasm - Will consult spinal surgery for further recommendations - MRI lumbar spine ordered - continuous pulse ox due to IV opioids - PT/ OT ordered HTN - Losartan D/c recently due to hypotension. - Stable on admission, continue to monitor CAD hx NSTEMI s/p PCI LAD x 2 CHRISTIANA - Continue Plavix - continue atorvastatin - No chest pain GERD- stable - continue ppi Depression/ Anxiety/ PTSD - continue sertraline and trazodone DILLAN - does not uses CPAP DVT prophylaxis: Lovenox sq Dispo- Med/surge History of Present Illness Primary Care Provider: RESHMA Barnett 54 y/o male with pmh of chronic back pain s/p numerous lumbar spine surgeries, cervical discectomy and fusion, migraines, CAD/ hx of NSTEMI x 2 CHRISTIANA, hypertension, hyperlipidemia, Anxiety/depression/ptdsd and DILLAN here due to acute back pain. Patient states had a fall from ground level this morning, his leg gave up. He hit his back and head during the fall. Denied any voiding retention, saddle anesthesia or BM incontinence. He refers worsening back pain that radiate to his left lower extremity with associated weakness and new right lower extremity pain. Denied any chest pain, SOB, palpitations. Denied any black stools. He states follows with ortho spine surgery outpatient who are not recommending any surgical intervention and managing outpatient. Follows with pain management outpatient, received an epidural injection on 12/2024. Pain was been controlled with nsaids and tylenol as needed. Does not used opiod outpatient. States having hypotension and SOB with opiods in the past Allergies Allergy/AdvReac Type Severity Reaction Status Date / Time hydromorphone Allergy Severe SHORTNESS Verified 12/28/24 09:14 OF BREATH Penicillins Allergy Severe ALLERGY TO Verified 12/28/24 09:14 [id number] doxycycline Allergy Intermediate BLISTERS/HI Verified 12/28/24 09:14 VES lamotrigine Allergy Intermediate tremors Verified 12/28/24 09:14 clindamycin AdvReac Intermediate NAUSEA Verified 12/28/24 09:14 eletriptan AdvReac Mild nausea/vomi Verified 12/28/24 09:14 ting gabapentin AdvReac Anaphylaxis Verified 12/28/24 09:14 Home Medications Medication Instructions Recorded Confirmed Type tadalafil 5 mg tablet 20 mg (4 x 5 mg) PO ONCE PRN 04/13/23 01/22/25 Rx sexual activity #30 tabs nitroglycerin 0.4 mg sublingual 0.4 mg sublingual Q5M PRN chest 09/07/23 01/22/25 Rx tablet (Nitrostat) pain #1 btl sertraline 100 mg tablet (Zoloft) 100 mg PO QAM #90 tabs 03/31/24 01/22/25 Rx trazodone 150 mg tablet 150 mg PO HS #90 tabs 03/31/24 01/22/25 Rx fenofibrate nanocrystallized 145 145 mg PO QAM 05/23/24 01/22/25 History mg tablet albuterol sulfate 90 mcg/actuation 2 puff inhalation Q6H PRN 08/21/24 01/22/25 Rx aerosol inhaler Shortness Of Breath Or Wheezing #18 grams levocetirizine 5 mg tablet (Xyzal) 5 mg PO PM 09/27/24 01/22/25 History acetaminophen 500 mg tablet 1,000 mg PO Q8H PRN Pain 10/09/24 01/22/25 History (Tylenol Extra Strength) atorvastatin 40 mg tablet 40 mg PO QAM #90 tabs 10/10/24 01/22/25 Rx clopidogrel 75 mg tablet 75 mg PO QAM #90 tabs 10/11/24 01/22/25 Rx benzonatate 200 mg capsule 200 mg PO TID PRN cough #30 caps 11/14/24 01/22/25 Rx montelukast 10 mg tablet 10 mg PO QPM #90 tabs 01/09/25 01/22/25 Rx pantoprazole 40 mg tablet,delayed 40 mg PO QAM #90 tabs 01/09/25 01/22/25 Rx release Past Med/Surg History Problem List (Updated 12/20/24 @ 08:25 by Janine Thomson RN) Neuroforaminal stenosis of lumbar spine Postlaminectomy syndrome of lumbosacral region Lumbar radicular pain Ambulatory dysfunction (Acute) Intractable low back pain (Acute) Degenerative disc disease Spinal stenosis Cigar smoker Allergic rhinitis with postnasal drip Chronic cough Abnormal CT scan, chest Acute respiratory failure with hypoxia BYRD (dyspnea on exertion) (Acute) Pneumonia involving right lung (Acute) Failure of outpatient treatment Acute on chronic respiratory failure with hypoxia Multifocal pneumonia Pneumonia (Acute) Migraine Coronary artery disease Epidermal cyst Sebaceous cyst De Quervain's tenosynovitis Depression (Chronic) Anxiety (Chronic) 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 David Shea ([facility] [place] Dyslipidemia (Chronic) Hypertension (Chronic) Allergic rhinitis Post traumatic stress disorder (Chronic) Cervical spinal stenosis (Chronic) Thoracic degenerative disc disease (Chronic) Erectile dysfunction (Chronic) Chronic daily headache Medical History (Updated 12/20/24 @ 08:25 by Janine Thomson RN) Hypoxia NSTEMI (non-ST elevated myocardial infarction) Viral pneumonia Chest pain Disc degeneration, lumbar Esophageal reflux Obstructive sleep apnea Migraine with aura Parainfluenza virus bronchitis Froin's syndrome FOLLOWED BY DR. SHEA Failed back surgical syndrome Post traumatic stress disorder Anxiety and depression FOLLOWS COUNSELOR 1 X PER MONTH Hypertension Hyperlipidemia Sleep apnea no device Left lateral epicondylitis History of suicide attempt Status epilepticus (10/19/13) No problems since, had mini-seizures r/t "body shutting down". believed r/t the Froin's syndrome. treated at [facility]. HOSPITALIZED 2013 AND 2015 "BELIEVES RELATED TO GABAPENTIN NOT BROKEN DOWN" Surgical History (Updated 12/20/24 @ 08:25 by Janine Thomson, AGAPITO) EIC (epidermal inclusion cyst) (12/14/24) FINAL DIAGNOSIS In office procedure Dr. Vasquez Skin, right lower back, excision: - Epidermal inclusion cyst History of colonoscopy (~09/2021) Family history of reaction to anesthesia BROTHER>NAUSEA Cyst REMOVED FROM BACK S/P lumbar and lumbosacral fusion by anterior technique 2003 [place] teeth removed S/P cervical spinal fusion GOOD ROM History of esophagogastroduodenoscopy (EGD) History of lumbar fusion TOTAL 5 LUMBAR SURGERIES (4 POSTERIOR/1 ANTERIOR>LAST LUMBAR) Family History Grandfather (Maternal) Diabetes Mother FHx: skin cancer Sinus disorder Grandmother (Maternal) FHx: stomach cancer Brother Asthma Sinus disorder Father Cardiac disorder Lumbar disc disease Parkinson disease Aunt Diabetes Uncle Diabetes Grandmother Cancer Other Gallbladder disease Heart disease Hypertension Social History Smoking Status: Never smoker Tobacco Type: Cigars Second Hand Exposure: Yes; Do You Dip or Chew Tobacco: No; Hx Alcohol Use: Yes Alcohol type: beer Alcohol Intake Frequency: 2-4 x/Month Hx Substance Use: No Preferred Language: Togolese Communication Ability: Effective Visual Impairment: No Limitations Hearing Ability: Normal Education Managers Required: No Beliefs That Will Affect Care: None marital status: Current Living Situation: Spouse and Family Current Living Situation Comment: 1 story home with 2 steps to enter home current occupational status: employed 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 How many Children do You have: 1 Other Information That Helps Us Care for You: No Feels Safe at Home: Yes Safety Concerns: Feels Safe At This Time Childhood Exposure to Second-Hand Smoke: No Diet: regular during the past year weight has: decreased > 10 lbs Dental Care, Regularly: Yes Physical Activity Frequency: Daily Seatbelt Use: always Sunscreen Use: No Assistive Devices: Glasses Review of Systems Review of Systems: as per hpi Physical Exam Constitutional: well developed, well nourished and + well hydrated; no acute distress ENMT: external ear and nose normal, oropharynx normal Respiratory: normal respiratory effort, lungs clear to auscultation Cardiovascular: RRR, no murmur, no edema Gastrointestinal (Abdomen): normal bowel sounds, soft, nontender, no hepatosplenomegaly Musculoskeletal: Extremities: + limited ROM of extremities Left lower extremity numbness and tingling LLE 4/5 strength Results & Data Results & Data Vital Signs (Past 12 Hours) Vital Signs Temp Pulse Pulse Resp BP BP Pulse Ox 01/22/25 15:00 62 17 130/76 95 01/22/25 14:00 55 L 16 126/96 94 01/22/25 12:45 71 22 149/97 H 95 01/22/25 11:59 93 01/22/25 11:47 70 01/22/25 11:40 36.8 C 85 18 144/98 H 95 O2 Del Method 01/22/25 15:00 Room Air 01/22/25 14:00 Room Air 01/22/25 12:45 Room Air 01/22/25 11:59 Room Air 01/22/25 11:47 01/22/25 11:40 Room Air Code Status & VTE Plan VTE Prophylaxis Plan VTE Prophylaxis will be ordered: Yes Supervising Physician Co-Signing Physician Notes I personally examined the patient and verified all castle points of history and exam, discussed case, and agree with decision making with Dr. Kaiden Byrne with the following additions/exceptions: S-patient here with severe lower back pain radiating down the left lower extremity similar to previous episodes of lumbar radiculopathy. He just received a pain management injection over a month ago which did help. No bowel or bladder incontinence. No fevers or chills O- Vitals Reviewed Gen: [AAOx3, NAD] HEENT: [anicteric sclerae, EOMI] CV: [RRR no mgr nl S1S2] Pulm: [CTAB no wcr] Abd: [+BS soft NT ND no masses or hernias] Ext: [no edema, positive straight leg raise on the left] Skin: [no rashes, warm/dry] Neuro: [full strength throughout but limited due to pain in the lower extremities] CBC, BMP reviewed A/P: 54-year-old male here with lumbar radiculopathy with intractable pain - Admit for pain control, IV steroids, muscle relaxers, MRI lumbar spine - Continue home medications as before - Consult orthopedic spine surgery Resident Activity Tracking Resident Involvement: Resident Care Provided Care Provided: Adult Hospital Medicine
[2025-01-22] MEDS: KETOROLAC TROMETHAMINE 15 MG/ML VIAL IV ONE (16:11)
[2025-01-22] MEDS ORDERED: ALBUTEROL HFA 8 GM INHALER INH PRN (16:51)
[2025-01-22] MEDS ORDERED: ONDANSETRON INJ 2 MG/ML 2 ML VIAL IV PRN (16:51)
[2025-01-22] MEDS ORDERED: MELATONIN 3 MG TAB PO PRN (16:51)
[2025-01-22] MEDS: ACETAMINOPHEN 1,000 MG/100 ML VIAL IV SCH (17:58)
[2025-01-22] MEDS: ENOXAPARIN INJ 40 MG/0.4 ML SYR SQ SCH (17:59)
[2025-01-22] MEDS: MoRPHine SULFATE 2 MG/ML CARP IV PRN (18:01)
--- NOTE | 2025-01-22 19:11 | Billing Data ---
Date of Service January 22, 2025 Coding Level of Care Code 93846 INT INP/OBS CARE
[2025-01-22] MEDS: CETIRIZINE HCL 10 MG TABLET PO SCH (20:28)
[2025-01-22] MEDS: MONTELUKAST SODIUM 10 MG TABLET PO SCH (20:28)
[2025-01-22] MEDS: KETOROLAC TROMETHAMINE 15 MG/ML VIAL IV PRN (20:29)
[2025-01-22] MEDS: REMOVE LIDODERM PATCH SCH ×2 (20:32)
--- NOTE | 2025-01-23 00:41 | Magnetic Resonance Report ---
Exam(s): MRI L SPINE Without Contrast EXAM: MR Lumbar Spine Without Intravenous Contrast CLINICAL HISTORY: Reason for exam: hx of L radiculopathy with worsening weakness. TECHNIQUE: Magnetic resonance images of the lumbar spine without intravenous contrast in multiple planes. COMPARISON: Prior MRI of the lumbar spine from September 27, 2024. FINDINGS: Vertebrae: There are 5 lumbar type vertebral bodies with a mild generalized curved to the left and shallow lumbar lordosis. There is a mild grade 1 retrolisthesis of L3 and L4 measuring 2 mm. Otherwise, there is normal vertebral body height and alignment. The bone marrow signal is heterogeneous with reactive endplate changes and areas of focal fat or venous malformations. Patient is status post anterior and interbody fusion of L4, L5 and S1. Patient is status post left L4 and L5 laminotomies. No acute fracture. Spinal cord: The conus is normal size, shape and signal characteristics, terminating at T12-L1. Soft tissues: There is moderate atrophy of the paraspinous intraspinous musculature. There is mild atrophy of the iliopsoas muscles. DISCS/SPINAL CANAL/NEURAL FORAMINA: L1-L2: There is mild disc degeneration with annular disc bulge flattening the ventral thecal sac with disc extending to the neural foramina without evidence of impingement or significant stenosis. L2-L3: Moderate disc degeneration with annular disc bulging causing a mild subarticular recess stenosis with disc extending to the neural foramina without evidence of impingement or significant stenosis. L3-L4: There is mild disc degeneration with annular disc bulge asymmetric to the left flattening the ventral thecal sac with disc extending to the neural foramina without evidence of impingement or significant stenosis. L4-L5: There is fusion across these segments with soft tissue around the left L5 nerve root in the subarticular recess, which may represent scar tissue. There is marginal osteophyte extending to the right neural foramen causing a mild stenosis without evidence of neural impingement. L5-S1: There is fusion across these segments with a small amount of soft tissue around the left S1 nerve root in the subarticular recess, which may represent scar tissue. There are marginal osteophytes extending to the neural foramina causing mild bilateral stenosis without evidence of neural impingement. IMPRESSION: No evidence of acute lumbar spine pathology. No significant change from the prior MRI of the lumbar spine from September 27, 2024. There is soft tissue around the left L5 and left S1 nerve roots in the subarticular recess, which may represent scar tissue. Electronically signed by: Rama Betts MD 01/23/25 00:40 AM
[2025-01-23] MEDS: MoRPHine SULFATE 2 MG/ML CARP IV STA (01:22)
[2025-01-23 06:33] LABS: Hematocrit (blood only) 47.4 % (42.0-52.0); Hemoglobin 16.0 g/dl (14.0-18.0); Immature Granulocytes # (auto) 0.07 K/uL (0.01-0.20); Immature Granulocytes % (auto) 0.5 %; Mean Corpuscular Hemoglobin 29.7 pg (25.0-34.0); Mean Corpuscular Volume 87.9 fL (80.0-100.0); Platelet Count 190 K/uL (130-400); RDW Standard Deviation 41.9 fL (36.4-46.3); Red Blood Count 5.39 M/uL (4.70-6.10); White Blood Count 13.92 K/ul (4.8-10.8)
[2025-01-23 06:52] LABS: Anion Gap 7.0 (3-11); Blood Urea Nitrogen 22.0 mg/dl (6-23); Calcium 9.1 mg/dl (8.6-10.3); Carbon Dioxide 25.0 mmol/L (21-32); Chloride 103.0 mmol/L (98-107); Creatinine Clr Calc Pharmacy 97.8 ml/min; Glucose 138.0 mg/dl (70-99(Fasting)); Potassium 4.5 mmol/L (3.5-5.1); Sodium 135.0 mmol/L (136-145)
[2025-01-23] MEDS: ACETAMINOPHEN 500 MG TAB PO SCH (08:54)
[2025-01-23] MEDS: CLOPIDOGREL BISULFATE 75 MG TAB PO SCH (08:56)
[2025-01-23] MEDS: ATORVASTATIN 40 MG TAB PO SCH (08:56)
[2025-01-23] MEDS: FENOFIBRATE NANOCRYSTALLIZED 145 MG TABLET PO SCH (08:56)
[2025-01-23] MEDS: SERTRALINE HCL 100 MG TABLET PO SCH (08:56)
[2025-01-23] MEDS: LIDOCAINE 5% 1 PATCH TD SCH (08:57)
--- NOTE | 2025-01-23 09:36 | Pain Management Consultation ---
Date of Consultation January 23, 2025 Assessment & Plan (1) Neuroforaminal stenosis of lumbar spine: (2) Postlaminectomy syndrome of lumbosacral region: (3) Lumbar radicular pain: (4) Ambulatory dysfunction: (5) Intractable low back pain: (6) Degenerative disc disease: (7) History of lumbar fusion: Plan 1. Patient will continue Valium and Toradol for pain relief. 2. Morphine will remain at 2 mg every 4 hours if needed. 3. We have discussed initiating pregabalin 50 mg twice daily to address neuropathic component. Side effect profile was reviewed with the patient. This may need further titrated. 4. Will keep current scheduled epidural steroid injection. We did have a discussion about annual steroid burden and if he is to have 2 injections closer together, he may be required to go a longer time before he can have subsequent injection. Patient is understanding of this. 5. He will follow-up in the pain clinic as scheduled. Will sign off on the patient. Please contact with any questions or concerns. History of Present Illness Attending Physician: Adiel Jama MD History of Present Illness Mr. Lazcano is a 54-year-old male with a significant history of multiple lumbar spine surgeries most recent 2003 at [facility] with an anterior fusion from L4-S1. He did arrive via EMS for a fall that occurred 2 days ago. He was in the shower and states that his left leg gave out on him. No significant injuries on emergency department workup. He was reported to worsening of lumbar radicular symptoms. He has been previously seen in the pain clinic and received a bilateral L3-L4 transforaminal epidural steroid injection on 10/09/2024 which did provide about 75% pain relief. He is scheduled for a repeat injection on 02/15/2025. He is reporting 60% low back pain and 40% radicular symptoms. Pain in the back is described as a constant deep aching and radicular symptoms described as a burning sensation down the back of the left leg and into the left groin. He has previously seen Dr. Mejía in the past for orthopedic spine surgery. Pain is rated 8/10 currently. He does find Toradol and Valium moderately efficacious towards diminishing his pain. morphine is minimally effective. We did have a bad experience with previous use of gabapentin that resulted in confusion, brain fog. He does report left leg weakness. No bow el/bladder incontinence, saddle anesthesia. Case discussed with Dr. Henderson Allergies Allergy/AdvReac Type Severity Reaction Status Date / Time hydromorphone Allergy Severe SHORTNESS Verified 12/28/24 09:14 OF BREATH Penicillins Allergy Severe ALLERGY TO Verified 12/28/24 09:14 [id number] doxycycline Allergy Intermediate BLISTERS/HI Verified 12/28/24 09:14 VES lamotrigine Allergy Intermediate tremors Verified 12/28/24 09:14 clindamycin AdvReac Intermediate NAUSEA Verified 12/28/24 09:14 eletriptan AdvReac Mild nausea/vomi Verified 12/28/24 09:14 ting gabapentin AdvReac Anaphylaxis Verified 12/28/24 09:14 Home Medications Medication Instructions Recorded Confirmed Type tadalafil 5 mg tablet 20 mg (4 x 5 mg) PO ONCE PRN 04/13/23 01/22/25 Rx sexual activity #30 tabs nitroglycerin 0.4 mg sublingual 0.4 mg sublingual Q5M PRN chest 09/07/23 01/22/25 Rx tablet (Nitrostat) pain #1 btl sertraline 100 mg tablet (Zoloft) 100 mg PO QAM #90 tabs 03/31/24 01/22/25 Rx trazodone 150 mg tablet 150 mg PO HS #90 tabs 03/31/24 01/22/25 Rx fenofibrate nanocrystallized 145 145 mg PO QAM 05/23/24 01/22/25 History mg tablet albuterol sulfate 90 mcg/actuation 2 puff inhalation Q6H PRN 08/21/24 01/22/25 Rx aerosol inhaler Shortness Of Breath Or Wheezing #18 grams levocetirizine 5 mg tablet (Xyzal) 5 mg PO PM 09/27/24 01/22/25 History acetaminophen 500 mg tablet 1,000 mg PO Q8H PRN Pain 10/09/24 01/22/25 History (Tylenol Extra Strength) atorvastatin 40 mg tablet 40 mg PO QAM #90 tabs 10/10/24 01/22/25 Rx clopidogrel 75 mg tablet 75 mg PO QAM #90 tabs 10/11/24 01/22/25 Rx benzonatate 200 mg capsule 200 mg PO TID PRN cough #30 caps 11/14/24 01/22/25 Rx montelukast 10 mg tablet 10 mg PO QPM #90 tabs 01/09/25 01/22/25 Rx pantoprazole 40 mg tablet,delayed 40 mg PO QAM #90 tabs 01/09/25 01/22/25 Rx release Patient History Medical History Hypoxia NSTEMI (non-ST elevated myocardial infarction) Viral pneumonia Chest pain Disc degeneration, lumbar Esophageal reflux Obstructive sleep apnea Migraine with aura Parainfluenza virus bronchitis 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 believed r/t the Froin's syndrome. treated at [facility]. HOSPITALIZED 2013 AND 2015 "BELIEVES RELATED TO GABAPENTIN NOT BROKEN DOWN" Surgical History EIC (epidermal inclusion cyst) (12/14/24) FINAL DIAGNOSIS In office procedure Dr. Vasquez Skin, right lower back, excision: - Epidermal inclusion cyst History of colonoscopy (~09/2021) Family history of reaction to anesthesia BROTHER>NAUSEA Cyst REMOVED FROM BACK S/P lumbar and lumbosacral fusion by anterior technique 2003 [place] teeth removed S/P cervical spinal fusion GOOD ROM History of esophagogastroduodenoscopy (EGD) History of lumbar fusion TOTAL 5 LUMBAR SURGERIES (4 POSTERIOR/1 ANTERIOR>LAST LUMBAR) Family History Grandfather (Maternal) Diabetes Mother FHx: skin cancer Sinus disorder Grandmother (Maternal) FHx: stomach cancer Brother Asthma Sinus disorder Father Cardiac disorder Lumbar disc disease Parkinson disease Aunt Diabetes Uncle Diabetes Grandmother Cancer Other Gallbladder disease Heart disease Hypertension Social History Smoking Status: Never smoker Tobacco Type: Cigars Second Hand Exposure: Yes; Do You Dip or Chew Tobacco: No; Hx Alcohol Use: Yes Alcohol type: beer Alcohol Intake Frequency: 2-4 x/Month Hx Substance Use: No Preferred Language: Qatari Communication Ability: Effective Visual Impairment: No Limitations Hearing Ability: Normal Cast Iron Dipper Required: No Beliefs That Will Affect Care: None marital status: Current Living Situation: Spouse and Family Current Living Situation Comment: 1 story home with 2 steps to enter home current occupational status: employed 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 HEAD/FACE: Normocephalic and atraumatic. EYES: No drainage or conjunctival injection. ENT: Nose without bleeding or discharge. Oral mucosa moist. NECK: Full ROM without apparent pain. No swelling or masses noted. RESPIRATORY: Patient with unlabored breathing. No signs of respiratory distress. CHEST/AXILLA: Chest movement symmetrical. No deformities noted. ABDOMEN/GI: No distension BACK: Difficulty with movement due to pain. There is focal tenderness along the left lumbosacral junction. mild left SI joint tenderness. No myofascial spasm or trigger points noted. SKIN: [place], warm and dry. No rash noted. MS/EXTREMITY: 3/5 strength of the left lower extremity, 5/5 strength of the right. NEURO: Alert and appears oriented. Speech is fluent. Cranial Nerves are grossly intact. PSYCH: Alert, pleasant, affect is calm Results (Pain Clinic) Diagnostic Review MRI Findings: Exam(s): MRI L SPINE Without Contrast EXAM: MR Lumbar Spine Without Intravenous Contrast CLINICAL HISTORY: Reason for exam: hx of L radiculopathy with worsening weakness. TECHNIQUE: Magnetic resonance images of the lumbar spine without intravenous contrast in multiple planes. COMPARISON: Prior MRI of the lumbar spine from September 27, 2024. FINDINGS: Vertebrae: There are 5 lumbar type vertebral bodies with a mild generalized curved to the left and shallow lumbar lordosis. There is a mild grade 1 retrolisthesis of L3 and L4 measuring 2 mm. Otherwise, there is normal vertebral body height and alignment. The bone marrow signal is heterogeneous with reactive endplate changes and areas of focal fat or venous malformations. Patient is status post anterior and interbody fusion of L4, L5 and S1. Patient is status post left L4 and L5 laminotomies. No acute fracture. Spinal cord: The conus is normal size, shape and signal characteristics, terminating at T12-L1. Soft tissues: There is moderate atrophy of the paraspinous intraspinous musculature. There is mild atrophy of the iliopsoas muscles. DISCS/SPINAL CANAL/NEURAL FORAMINA: L1-L2: There is mild disc degeneration with annular disc bulge flattening the ventral thecal sac with disc extending to the neural foramina without evidence of impingement or significant stenosis. L2-L3: Moderate disc degeneration with annular disc bulging causing a mild subarticular recess stenosis with disc extending to the neural foramina without evidence of impingement or significant stenosis. L3-L4: There is mild disc degeneration with annular disc bulge asymmetric to the left flattening the ventral thecal sac with disc extending to the neural foramina without evidence of impingement or significant stenosis. L4-L5: There is fusion across these segments with soft tissue around the left L5 nerve root in the subarticular recess, which may represent scar tissue. There is marginal osteophyte extending to the right neural foramen causing a mild stenosis without evidence of neural impingement. L5-S1: There is fusion across these segments with a small amount of soft tissue around the left S1 nerve root in the subarticular recess, which may represent scar tissue. There are marginal osteophytes extending to the neural foramina causing mild bilateral stenosis without evidence of neural impingement. IMPRESSION: No evidence of acute lumbar spine pathology. No significant change from the prior MRI of the lumbar spine from September 27, 2024. There is soft tissue around the left L5 and left S1 nerve roots in the subarticular recess, which may represent scar tissue. Electronically signed by: Rama Betts MD 01/23/25 00:40 AM
[2025-01-23] MEDS: dexAMETHasone 6 MG in SYRINGE 0 ML IV SCH ×2 (09:53→21:20)
[2025-01-23] MEDS: PREGABALIN 50 MG CAP PO SCH (10:01)
[2025-01-23] MEDS: POLYETHYLENE (MIRALAX) 17 GM PACK PO PRN (10:21)
--- NOTE | 2025-01-23 12:40 | Hospitalist Progress Note ---
Date of Service January 23, 2025 Assessment & Plan (1) Lumbar radicular pain: (2) Ambulatory dysfunction: (3) Degenerative disc disease: Plan 54 y/o male with pmh of chronic back pain s/p numerous lumbar spine surgeries, cervical discectomy and fusion, migraines, CAD/ hx of NSTEMI x 2 CHRISTIANA, hypertension, hyperlipidemia, Anxiety/depression/ptdsd and DILLAN here due to acute back pain. Patient states had a fall from ground level this morning, his leg gave up. He hit his back and head during the fall. Denied any voiding retention, saddle anesthesia or BM incontinence. He refers worsening back pain that radiate to his left lower extremity with associated weakness and new right lower extremity pain. Patient will be admitted for IV pain management, PT/OT evaluation. #Lumbar stenosis/ Radiculopathy / Herniated disc at L2-L3 Hx of 5 lumbar spinal surgeries & 1 cervical spine surgery. Lumbar spine CT negative for acute fracture Head CT negative Lumbar spine MRI: no evidence of acute lumbar spine pathology. no change from prior MRI in 09/2024. Ortho spine consulted --> no surgery recommended Pain management consulted --> initiate pregablin 50mg BID. Can follow up in clinic for epidural steroid injection that is scheduled already. Tylenol scheduled, Lidocaine patch PRN pain meds: Toradol q6hr + Morphine 2mg q4hr PT/OT consulted, appreciate recommendations. HTN Losartan D/c recently due to hypotension. Stable on admission, continue to monitor CAD hx NSTEMI s/p PCI LAD x 2 CHRISTIANA Continue Plavix continue atorvastatin GERD- continue ppi Depression/ Anxiety/ PTSD- continue sertraline and trazodone DILLAN- does not uses CPAP DVT prophylaxis: Lovenox sq Dispo- Med/surge Hopeful discharge 01/24 Admission and Anticipated Discharge Date Admission Date: January 22, 2025 Supervising Physician Co-Signing Physician Notes Doreen Goode was seen and examined this morning with his at bedside. He states he feels minimally better today. States that if he can get his pain to a 6/10 or lower he would feel comfortable going home. States he had a discussion w/ Dr. Mejía today regarding a spinal stimulator. Physical Exam Constitutional: WD/WN, vitals as above Eyes: PERRL, conjunctivae normal, anicteric sclerae Respiratory: normal respiratory effort Skin: no rashes, warm and dry Neurologic: PERRL, EOMI, accommodation nl, no face palsy, no dysarthria Results & Data Results & Data Vital Signs (Past 12 Hours) Vital Signs Temp Pulse Resp BP Pulse Ox O2 Del Method 01/23/25 07:55 36.3 C L 63 16 119/75 95 Room Air PG Care Time/CCT Total # of Minutes Spent Total Time Spent with Patient: Total time spent is greater than 50% in coordination of care (as documented) at patient's floor/unit and/or counseling patient: Coding Level of Care Code 32233 SUB INP/OBS CARE 2/35MIN Diagnoses Lumbar radicular pain M54.16 Ambulatory dysfunction R26.2 Degenerative disc disease
--- NOTE | 2025-01-23 13:18 | Orthopedic Consultation ---
Date of Consultation January 23, 2025 Assessment & Plan (1) Postlaminectomy syndrome of lumbosacral region: MRI lumbar spine demonstrates no advanced changes from his previous imaging. He does have solid fusion L4-L5 L5-S1. The adjacent levels are stable. There is no gross neural compression. I am recommending interventional pain management at this time I do not see anything surgical. History of Present Illness Reason for Consultation: Back pain with left lower extremity pain and weakness Attending Physician: Adiel Jama MD History of Present Illness This is a 54-year-old male well-known to me the presents with worsening back and leg symptoms. He does have a history of multiple lumbar surgeries and chronic back and leg symptoms. They have been recently exacerbated. He is scheduled for interventional pain management in the next several weeks. He is to obtain some relief after hospitalization and medical management. Allergies Allergy/AdvReac Type Severity Reaction Status Date / Time hydromorphone Allergy Severe SHORTNESS Verified 12/28/24 09:14 OF BREATH Penicillins Allergy Severe ALLERGY TO Verified 12/28/24 09:14 [id number] doxycycline Allergy Intermediate BLISTERS/HI Verified 12/28/24 09:14 VES lamotrigine Allergy Intermediate tremors Verified 12/28/24 09:14 clindamycin AdvReac Intermediate NAUSEA Verified 12/28/24 09:14 eletriptan AdvReac Mild nausea/vomi Verified 12/28/24 09:14 ting gabapentin AdvReac Anaphylaxis Verified 12/28/24 09:14 Home Medications Medication Instructions Recorded Confirmed Type tadalafil 5 mg tablet 20 mg (4 x 5 mg) PO ONCE PRN 04/13/23 01/22/25 Rx sexual activity #30 tabs nitroglycerin 0.4 mg sublingual 0.4 mg sublingual Q5M PRN chest 09/07/23 01/22/25 Rx tablet (Nitrostat) pain #1 btl sertraline 100 mg tablet (Zoloft) 100 mg PO QAM #90 tabs 03/31/24 01/22/25 Rx trazodone 150 mg tablet 150 mg PO HS #90 tabs 03/31/24 01/22/25 Rx fenofibrate nanocrystallized 145 145 mg PO QAM 05/23/24 01/22/25 History mg tablet albuterol sulfate 90 mcg/actuation 2 puff inhalation Q6H PRN 08/21/24 01/22/25 Rx aerosol inhaler Shortness Of Breath Or Wheezing #18 grams levocetirizine 5 mg tablet (Xyzal) 5 mg PO PM 09/27/24 01/22/25 History acetaminophen 500 mg tablet 1,000 mg PO Q8H PRN Pain 10/09/24 01/22/25 History (Tylenol Extra Strength) atorvastatin 40 mg tablet 40 mg PO QAM #90 tabs 10/10/24 01/22/25 Rx clopidogrel 75 mg tablet 75 mg PO QAM #90 tabs 10/11/24 01/22/25 Rx benzonatate 200 mg capsule 200 mg PO TID PRN cough #30 caps 11/14/24 01/22/25 Rx montelukast 10 mg tablet 10 mg PO QPM #90 tabs 01/09/25 01/22/25 Rx pantoprazole 40 mg tablet,delayed 40 mg PO QAM #90 tabs 01/09/25 01/22/25 Rx release Patient History Medical History Hypoxia NSTEMI (non-ST elevated myocardial infarction) Viral pneumonia Chest pain Disc degeneration, lumbar Esophageal reflux Obstructive sleep apnea Migraine with aura Parainfluenza virus bronchitis 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 believed r/t the Froin's syndrome. treated at [facility]. HOSPITALIZED 2013 AND 2016 "BELIEVES RELATED TO GABAPENTIN NOT BROKEN DOWN" Surgical History EIC (epidermal inclusion cyst) (12/14/24) FINAL DIAGNOSIS In office procedure Dr. Vasquez Skin, right lower back, excision: - Epidermal inclusion cyst History of colonoscopy (~09/2021) Family history of reaction to anesthesia BROTHER>NAUSEA Cyst REMOVED FROM BACK S/P lumbar and lumbosacral fusion by anterior technique 2003 [place] teeth removed S/P cervical spinal fusion GOOD ROM History of esophagogastroduodenoscopy (EGD) History of lumbar fusion TOTAL 5 LUMBAR SURGERIES (4 POSTERIOR/1 ANTERIOR>LAST LUMBAR) Family History Grandfather (Maternal) Diabetes Mother FHx: skin cancer Sinus disorder Grandmother (Maternal) FHx: stomach cancer Brother Asthma Sinus disorder Father Cardiac disorder Lumbar disc disease Parkinson disease Aunt Diabetes Uncle Diabetes Grandmother Cancer Other Gallbladder disease Heart disease Hypertension Social History Smoking Status: Never smoker Tobacco Type: Cigars Second Hand Exposure: Yes; Do You Dip or Chew Tobacco: No; Hx Alcohol Use: Yes Alcohol type: beer Alcohol Intake Frequency: 2-4 x/Month Hx Substance Use: No Preferred Language: Faroese Communication Ability: Effective Visual Impairment: No Limitations Hearing Ability: Normal Powder Shoveler Required: No Beliefs That Will Affect Care: None marital status: Current Living Situation: Spouse and Family Current Living Situation Comment: 1 story home with 2 steps to enter home current occupational status: employed 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 He does demonstrate weakness to testing left lower extremity compared to the right. Sensory is intact. Results & Data Vital Signs (Past 12 Hours) Vital Signs Temp Pulse Resp BP Pulse Ox O2 Del Method 01/23/25 07:55 36.3 C L 63 16 119/75 95 Room Air
--- NOTE | 2025-01-24 12:38 | Hospitalist Progress Note ---
Date of Service January 24, 2025 Assessment & Plan (1) Lumbar radicular pain: (2) Ambulatory dysfunction: (3) Degenerative disc disease: Plan 54 y/o male with pmh of chronic back pain s/p numerous lumbar spine surgeries, cervical discectomy and fusion, migraines, CAD/ hx of NSTEMI x 2 CHRISTIANA, hypertension, hyperlipidemia, Anxiety/depression/ptdsd and DILLAN here due to acute back pain. Patient states had a fall from ground level this morning, his leg gave up. He hit his back and head during the fall. Denied any voiding retention, saddle anesthesia or BM incontinence. He refers worsening back pain that radiate to his left lower extremity with associated weakness and new right lower extremity pain. Patient will be admitted for IV pain management, PT/OT evaluation. #Lumbar stenosis/ Radiculopathy / Herniated disc at L2-L3 Hx of 5 lumbar spinal surgeries & 1 cervical spine surgery. Lumbar spine CT negative for acute fracture Head CT negative Lumbar spine MRI: no evidence of acute lumbar spine pathology. no change from prior MRI in 09/2024. Ortho spine consulted --> no surgery recommended Pain management consulted --> pregablin 50mg BID. Can follow up in clinic for epidural steroid injection that is scheduled already. Tylenol scheduled, Lidocaine patch PRN pain meds: Toradol q6hr + Morphine 2mg q4hr PT/OT consulted --> okay for return home. HTN Losartan D/c recently due to hypotension. Stable on admission, continue to monitor CAD hx NSTEMI s/p PCI LAD x 2 CHRISTIANA Continue Plavix continue atorvastatin GERD- continue ppi Depression/ Anxiety/ PTSD- continue sertraline and trazodone DILLAN- does not uses CPAP DVT prophylaxis: Lovenox sq Dispo- Med/surge Hopeful discharge 01/25 Admission and Anticipated Discharge Date Admission Date: January 24, 2025 Supervising Physician Co-Signing Physician Notes The patient was not seen by me. The chart was reviewed. Case discussed with YUNG Aldrich. Agree with assessment and plan Nahun Russel see and examined this morning. He reports he feels worse today. He states the pain has been radiating down his leg. reports weather can exacerbate his p ain so he believes the rain may be playing a role in his symptoms today. Ideally he did want to go home but he believes another day in the hospital & he will be ready to return home tomorrow . Physical Exam Constitutional: WD/WN, vitals as above Eyes: PERRL, conjunctivae normal, anicteric sclerae Respiratory: normal respiratory effort Skin: no rashes, warm and dry Neurologic: PERRL, EOMI, accommodation nl, no face palsy, no dysarthria Psychiatric: A+Ox3, euthymic affect Results & Data Results & Data Vital Signs (Past 12 Hours) Vital Signs Temp Pulse Resp BP Pulse Ox O2 Del Method 01/24/25 07:55 36.4 C L 54 L 17 120/76 95 Room Air 01/24/25 07:40 Room Air PG Care Time/CCT Total # of Minutes Spent Total Time Spent with Patient: Total time spent is greater than 50% in coordination of care (as documented) at patient's floor/unit and/or counseling patient: Coding Level of Care Code 56993 SUB INP/OBS CARE 2/35MIN Diagnoses Lumbar radicular pain M54.16 Ambulatory dysfunction R26.2 Degenerative disc disease
[2025-01-24 16:50] VITALS: RESP 16
[2025-01-24 23:14] VITALS: TEMP 97.7
[2025-01-25 08:36] VITALS: BP 132/85; PULSE 55; O2SAT 97
--- NOTE | 2025-01-25 10:02 | Discharge Summary ---
Discharge Summary Date of Service January 25, 2025 Principal Dx & Hospital Course #1 = Principal Diagnosis (1) Lumbar radicular pain: (2) Ambulatory dysfunction: (3) Degenerative disc disease: Plan 54 y/o male with pmh of chronic back pain s/p numerous lumbar spine surgeries, cervical discectomy and fusion, migraines, CAD/ hx of NSTEMI x 2 CHRISTIANA, hypertension, hyperlipidemia, Anxiety/depression/ptdsd and DILLAN here due to acute back pain. Patient states had a fall from ground level this morning, his leg gave up. He hit his back and head during the fall. Denied any voiding retention, saddle anesthesia or BM incontinence. He refers worsening back pain that radiate to his left lower extremity with associated weakness and new right lower extremity pain. Patient will be admitted for IV pain management, PT/OT evaluation. #Lumbar stenosis/ Radiculopathy / Herniated disc at L2-L3 Hx of 5 lumbar spinal surgeries & 1 cervical spine surgery. Lumbar spine CT negative for acute fracture Head CT negative Lumbar spine MRI: no evidence of acute lumbar spine pathology. no change from prior MRI in 09/2024. Ortho spine consulted --> no surgery recommended Pain management consulted --> pregablin 50mg BID. Can follow up in clinic for epidural steroid injection that is scheduled already. Tylenol scheduled, Lidocaine patch PRN pain meds for home: Oxycodone 10mg q6h prn + Toradol PO 10mg q6h prn Valium 10mg PO q 6h prn for muscle spasms. PT/OT consulted --> okay for return home. HTN Losartan D/c recently due to hypotension. BP remained stable - follow up w/ PCP for further care. CAD hx NSTEMI s/p PCI LAD x 2 [place]RISTIANA Continue Plavix continue atorvastatin GERD- continue ppi Depression/ Anxiety/ PTSD- continue sertraline and trazodone DILLAN- does not uses CPAP Discharged home 01/25 Admission HPI Per Admitting Provider 54 y/o male with pmh of chronic back pain s/p numerous lumbar spine surgeries, cervical discectomy and fusion, migraines, CAD/ hx of NSTEMI x 2 [place]ST[place]NA, hypertension, hyperlipidemia, Anxiety/depression/ptdsd and DILLAN here due to acute back pain. Patient states had a fall from ground level this morning, his leg gave up. He hit his back and head during the fall. Denied any voiding retention, saddle anesthesia or BM incontinence. He refers worsening back pain that radiate to his left lower extremity with associated weakness and new right lower extremity pain. Denied any chest pain, SOB, palpitations. Denied any black stools. He states follows with ortho spine surgery outpatient who are not recommending any surgical intervention and managing outpatient. Follows with pain management outpatient, received an epidural injection on 12/2024. Pain was been controlled with nsaids and tylenol as needed. Does not used opiod outpatient. States having hypotension and SOB with opiods in the past Discharge Exam Constitutional WD/WN, vitals as above Eyes PERRL, conjunctivae normal, anicteric sclerae Respiratory normal respiratory effort Skin no rashes, warm and dry Neurologic PERRL, EOMI, accommodation nl, no face palsy, no dysarthria Psychiatric A+Ox3, euthymic affect Discharge Plan Discharge Items Patient Disposition: Home - Self-Care Reason For Visit: ACUTE BACK PAIN Discharge Diagnosis: Lumbar stenosis, radicular pain Condition on Discharge: Good Activity: Resume your previous activity Non-emergency contact: Primary Care Provider and Surgeon Call non-emergency contact if: you have any medication questions and your symptoms worsen Follow-up/Referrals: Aubree Alejandro DO [Physician] - Troy Mejía DO [Surgeon] - Ana Rosa Murguia CRNP [Primary Care Provider] - 02/02/25 11:00 am Diet: Heart Healthy Addtl Attending Provider Instructions: Mr. Lazcano, You were recently hospitalized for worsening back pain. You were treated with antispasmodics, pain medications, and IV steroids. You were evaluated by both ortho spine and pain management while here who recommended outpatient follow up for continued care. Please see recommendations below regarding your discharge. Please continue on Tylenol 1000mg every 8 hours scheduled. You may use Toradol 10mg every 6 hours as needed for breakthrough pain. For severe pain, please use Oxycodone 10mg every 4 hours as needed. For muscle spasms please use Valium 10mg every 6 hours as needed. Please finish the prednisone taper as prescribed. You were started on Lyrica 50mg twice daily by pain management, please continue this on discharge. The remainder of your medications may be resumed outpatient. Please follow up with ortho spine and pain management on an outpatient basis. Please follow up with your PCP within 1-2 weeks of discharge. Best of luck! Doreen Ferreira PA-C Pending Studies at Discharge: No Stand-Alone Forms: [facility], Smoking Cessation Medications and DC Order Prescriptions: New acetaminophen [Tylenol Extra Strength] 500 mg Tablet 1,000 mg PO Q8H Qty: 60 0RF prednisone 10 mg tablet 10 mg PO DIRECTED Qty: 30 0RF Rx Instructions: Take 4 tablets by mouth for 3 days followed by 3 tablets by mouth for 3 days followed by 2 tablets by mouth for 3 days followed by 1 tablet by mouth for 3 days pregabalin [Lyrica] 50 mg capsule 50 mg PO BID Qty: 60 0RF oxycodone 10 mg tablet 10 mg PO Q6H PRN (Reason: pain) Qty: 7 0RF diazepam 10 mg tablet 10 mg PO Q6H PRN (Reason: muscle spasm) Qty: 10 0RF ketorolac 10 mg tablet 10 mg PO Q6H PRN (Reason: pain) Qty: 20 0RF Rx Instructions: maximum total duration of 5 days from all oral, intranasal, or parenteral formulations Continued atorvastatin 40 mg tablet 40 mg PO QAM Qty: 90 3RF montelukast 10 mg tablet 10 mg PO QPM Qty: 90 3RF Rx Instructions: TAKE 1 TABLET DAILY IN THE EVENING pantoprazole 40 mg tablet,delayed release (DR/EC) 40 mg PO QAM Qty: 90 3RF tadalafil 5 mg tablet 20 mg PO ONCE PRN (Reason: sexual activity) Qty: 30 11RF clopidogrel 75 mg tablet 75 mg PO QAM Qty: 90 3RF Hold Instructions: Hold starting 10/02 for planned back injection on 10/09. sertraline [Zoloft] 100 mg tablet 100 mg PO QAM Qty: 90 3RF trazodone 150 mg tablet 150 mg PO HS Qty: 90 3RF albuterol sulfate 90 mcg/actuation HFA aerosol inhaler 2 puff inhalation Q6H PRN (Reason: Shortness Of Breath Or Wheezing) Qty: 18 3RF benzonatate 200 mg capsule 200 mg PO TID PRN (Reason: cough) Qty: 30 0RF nitroglycerin [Nitrostat] 0.4 mg Tablet, Sublingual 0.4 mg sublingual Q5M PRN (Reason: chest pain) Qty: 1 0RF fenofibrate nanocrystallized 145 mg tablet 145 mg PO QAM levocetirizine [Xyzal] 5 mg Tablet 5 mg PO PM Discontinued acetaminophen [Tylenol Extra Strength] 500 mg tablet 1,000 mg PO Q8H PRN (Reason: Pain) Discharge Orders: Discharge Order (Routine); Ordered 01/25/25 Ordered By: Doreen Ferreira Admission Data Admit Date/Time: 01/24/25 09:52 Attending Provider: Adiel Jama Admit Provider: Fabiola Brown Primary Care Provider: Ana Rosa Murguia Other Providers: Fabiola Brown; Troy Mejía; Aubree Alejandro Other Interventions: Discharge Summary Assessment (RN) Last Done: 01/25/25 10:18 Hospital Stay Data Consultations 01/22/25 14:49 ED Decision to Admit Stat 01/22/25 16:51 Consult Orthopedic Spine Surgery Routine 01/23/25 07:49 Consult Pain Management Routine Diagnostic Imagining Performed 01/22/25 11:57 CT lumbar spine wo con Stat 01/22/25 11:58 CT head/brain wo con Stat 01/22/25 16:31 MRI Lumbar Spine [MR lumbar spine wo con] Stat Pending Results Patient Have Any Pending Studies at Discharge: No Discharge Instructions Given to Patient (Per Discharging Provider) Mr. Lazcano, [place] were recently hospitalized for worsening back pain. You were treated with antispasmodics, pain medications, and IV steroids. You were evaluated by both ortho spine and pain management while here who recommended outpatient follow up for continued care. Please see recommendations below regarding your discharge. Please continue on Tylenol 1000mg every 8 hours scheduled. You may use Toradol 10mg every 6 hours as needed for breakthrough pain. For severe pain, please use Oxycodone 10mg every 4 hours as needed. For muscle spasms please use Valium 10mg every 6 hours as needed. Please finish the prednisone taper as prescribed. You were started on Lyrica 50mg twice daily by pain management, please continue this on discharge. The remainder of your medications may be resumed outpatient. Please follow up with ortho spine and pain management on an outpatient basis. Please follow up with your PCP within 1-2 weeks of discharge. Best of luck! Doreen Ferreira PA-C Supervising Physician Co-Signing Physician Notes The patient was not seen by me. The chart was reviewed. Case discussed with YUNG Aldrich. Agree with assessment and plan Total Time Total Time Spent Total Time Spent (In Minutes): 50 Total Time Includes: Examination of the Patient, Discharge Planning and Medication Reconciliation Coding Level of Care Code 72578 INP/OBS DISCH >30 MIN Diagnoses Lumbar radicular pain M54.16 Ambulatory dysfunction R26.2 Degenerative disc disease
== END 2025-01-25 11:30 | disposition home or self-care (01) | DRG 552 ==
LOC: 3W 11:30 → ED 11:30 → SUATTDRO 15:37 → 3W 16:44

== ENCOUNTER 2025-02-19 11:16 | Inpatient (IN) ==
--- NOTE | 2025-02-19 11:56 | Emergency Department Note ---
History of Present Illness General Chief complaint: Fall Time Seen by Provider: 02/19/25 11:26 History of Present Illness Maximum Pain Intensity: 10 This is a 54-year-old male who presents to the emergency department via EMS with complaints of "fall, back pain". 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 He notes that he rolled little bit. He notes an abrasion to his left forehead. He also notes low back pain. He denies any loss of consciousness. No chest pain or abdominal pain. He does note pain is radiating down the left leg and also involves the foot. The patient denies any bowel or bladder incontinence. No numbness or tingling in the genital region. Reportedly the patient did receive 30 mg of IV ketamine and route and also fentanyl. Patient notes minimal improvement of pain. Home Medications Medication Instructions Recorded Confirmed Type tadalafil 5 mg tablet 20 mg (4 x 5 mg) PO ONCE PRN 04/13/23 02/19/25 Rx sexual activity #30 tabs nitroglycerin 0.4 mg sublingual 0.4 mg sublingual Q5M PRN chest 09/07/23 02/19/25 Rx tablet (Nitrostat) pain #1 btl sertraline 100 mg tablet (Zoloft) 100 mg PO QAM #90 tabs 03/31/24 02/19/25 Rx trazodone 150 mg tablet 150 mg PO HS #90 tabs 03/31/24 02/19/25 Rx fenofibrate nanocrystallized 145 145 mg PO QAM 05/23/24 02/19/25 History mg tablet albuterol sulfate 90 mcg/actuation 2 puff inhalation Q6H PRN 08/21/24 02/19/25 Rx aerosol inhaler Shortness Of Breath Or Wheezing #18 grams levocetirizine 5 mg tablet (Xyzal) 0 mg PO PM 09/27/24 02/19/25 History atorvastatin 40 mg tablet 40 mg PO QAM #90 tabs 10/10/24 02/19/25 Rx clopidogrel 75 mg tablet 75 mg PO QAM #90 tabs 10/11/24 02/19/25 Rx benzonatate 200 mg capsule 200 mg PO TID PRN cough #30 caps 11/14/24 02/19/25 Rx montelukast 10 mg tablet 10 mg PO QPM #90 tabs 01/09/25 02/19/25 Rx pantoprazole 40 mg tablet,delayed 40 mg PO QAM #90 tabs 01/09/25 02/19/25 Rx release acetaminophen 500 mg tablet 1,000 mg (2 x 500 mg) PO Q8H #60 01/25/25 02/19/25 Rx (Tylenol Extra Strength) tabs oxycodone 10 mg tablet 10 mg PO Q6H PRN pain #7 tabs 01/25/25 02/19/25 Rx diazepam 10 mg tablet 10 mg PO Q6H PRN muscle spasm #10 02/07/25 02/19/25 Rx tabs ketorolac 10 mg tablet 10 mg PO Q6H PRN pain #20 tabs 02/07/25 02/19/25 Rx pregabalin 50 mg capsule (Lyrica) 50 mg PO BID #60 caps 02/07/25 02/19/25 Rx Allergies Allergy/AdvReac Type Severity Reaction Status Date / Time hydromorphone Allergy Severe SHORTNESS Verified 02/07/25 10:07 OF BREATH Penicillins Allergy Severe ALLERGY TO Verified 02/07/25 10:07 [id number] doxycycline Allergy Intermediate BLISTERS/HI Verified 02/07/25 10:07 VES lamotrigine Allergy Intermediate tremors Verified 02/07/25 10:07 clindamycin AdvReac Intermediate NAUSEA Verified 02/07/25 10:07 eletriptan AdvReac Mild nausea/vomi Verified 02/07/25 10:07 ting gabapentin AdvReac Anaphylaxis Verified 02/07/25 10:07 Past Med/Surg History Problem List (Updated 02/19/25 @ 16:02 by Isaias Mccormick PA-C) Abrasion of forehead (Acute) Fall (Acute) Intractable low back pain (Acute) CHI (closed head injury) (Acute) Low back pain (Acute) Fall (Acute) Neuroforaminal stenosis of lumbar spine Postlaminectomy syndrome of lumbosacral region Lumbar radicular pain Ambulatory dysfunction (Acute) Intractable low back pain (Acute) Degenerative disc disease Spinal stenosis Cigar smoker Allergic rhinitis with postnasal drip Chronic cough Abnormal CT scan, chest Acute respiratory failure with hypoxia BYRD (dyspnea on exertion) (Acute) Pneumonia involving right lung (Acute) Failure of outpatient treatment Acute on chronic respiratory failure with hypoxia Multifocal pneumonia Pneumonia (Acute) Migraine Coronary artery disease Epidermal cyst Sebaceous cyst De Quervain's tenosynovitis Depression (Chronic) Anxiety (Chronic) 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 David Shea [place] [place] Dyslipidemia (Chronic) Hypertension (Chronic) Allergic rhinitis Post traumatic stress disorder (Chronic) Cervical spinal stenosis (Chronic) Thoracic degenerative disc disease (Chronic) Erectile dysfunction (Chronic) Chronic daily headache Medical History Hypoxia NSTEMI (non-ST elevated myocardial infarction) Viral pneumonia Chest pain Disc degeneration, lumbar Esophageal reflux Obstructive sleep apnea Migraine with aura Parainfluenza virus bronchitis Froin's syndrome FOLLOWED BY DR. SHEA Failed back surgical syndrome Post traumatic stress disorder Anxiety and depression FOLLOWS COUNSELOR 1 X PER MONTH Hypertension Hyperlipidemia Sleep apnea no device Left lateral epicondylitis History of suicide attempt Status epilepticus (10/19/13) No problems since, had mini-seizures r/t "body shutting down". believed r/t the Froin's syndrome. treated at [facility]. HOSPITALIZED 2013 AND 2016 "BELIEVES RELATED TO GABAPENTIN NOT BROKEN DOWN" Surgical History EIC (epidermal inclusion cyst) (12/14/24) FINAL DIAGNOSIS In office procedure Dr. Vasquez Skin, right lower back, excision: - Epidermal inclusion cyst History of colonoscopy (~09/2021) Family history of reaction to anesthesia BROTHER>NAUSEA Cyst REMOVED FROM BACK S/P lumbar and lumbosacral fusion by anterior technique 2003 [place] teeth removed S/P cervical spinal fusion GOOD ROM History of esophagogastroduodenoscopy (EGD) Family History Grandfather (Maternal) Diabetes Mother FHx: skin cancer Sinus disorder Grandmother (Maternal) FHx: stomach cancer Brother Asthma Sinus disorder Father Cardiac disorder Lumbar disc disease Parkinson disease Aunt Diabetes Uncle Diabetes Grandmother Cancer Other Gallbladder disease Heart disease Hypertension Social History Smoking Status: Former smoker Tobacco Type: Cigars Second Hand Exposure: Yes; Do You Dip or Chew Tobacco: No; Hx Alcohol Use: Yes Alcohol type: beer Alcohol Intake Frequency: 2-4 x/Month Hx Substance Use: No Preferred Language: French Communication Ability: Effective Visual Impairment: No Limitations Hearing Ability: Normal Patient Accounting Representative Required: No Beliefs That Will Affect Care: None marital status: Current Living Situation: Spouse and Family Current Living Situation Comment: 1 story home with 2 steps to enter home current occupational status: employed 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[employer] How many Children do You have: 1 Feels Safe at Home: Yes Childhood Exposure to Second-Hand Smoke: No Diet: regular during the past year weight has: decreased > 10 lbs Dental Care, Regularly: Yes Physical Activity Frequency: Daily Seatbelt Use: always Sunscreen Use: No Assistive Devices: Cane and Walker Review of Systems A total of 10 systems reviewed and were otherwise negative Physical Exam Vital Signs Vital Signs - 24 hr 02/19/25 11:26 02/19/25 11:49 02/19/25 11:49 Temperature 36.6 C Temperature Source Oral Pulse Rate 66 60 64 Pulse Rate [Apical] Pulse Rate from SpO2 Sensor Respiratory Rate 16 16 Respiratory Effort / Characteristics Non-Labored Spontaneous Respiratory Depth Normal Respiratory Pattern Regular Blood Pressure 126/87 Blood Pressure [Right Arm] Blood Pressure Mean 100 Blood Pressure Mean [Right Arm] Blood Pressure Position [Right Arm] Pulse Oximetry 97 97 Oxygen Delivery Method Room Air Room Air Sepsis Recent Fever Within 48 Hours No Sepsis New/Unexplained Change in Mental Status No Sepsis Action Taken by Nursing No Action Required 02/19/25 12:00 02/19/25 12:00 02/19/25 12:03 Temperature Temperature Source Pulse Rate 56 L Pulse Rate [Apical] Pulse Rate from SpO2 Sensor 55 L Respiratory Rate 15 Respiratory Effort / Characteristics Respiratory Depth Respiratory Pattern Blood Pressure 123/69 123/69 Blood Pressure [Right Arm] Blood Pressure Mean 89 89 Blood Pressure Mean [Right Arm] Blood Pressure Position [Right Arm] Pulse Oximetry 94 Oxygen Delivery Method Sepsis Recent Fever Within 48 Hours Sepsis New/Unexplained Change in Mental Status Sepsis Action Taken by Nursing 02/19/25 12:30 02/19/25 12:30 02/19/25 12:30 Temperature Temperature Source Pulse Rate Pulse Rate [Apical] 54 L Pulse Rate from SpO2 Sensor Respiratory Rate 16 Respiratory Effort / Characteristics Non-Labored Spontaneous Respiratory Depth Normal Respiratory Pattern Regular Blood Pressure 113/76 113/76 Blood Pressure [Right Arm] 113/76 Blood Pressure Mean 86 86 Blood Pressure Mean [Right Arm] 88 Blood Pressure Position [Right Arm] Lying Pulse Oximetry 96 Oxygen Delivery Method Room Air Sepsis Recent Fever Within 48 Hours Sepsis New/Unexplained Change in Mental Status Sepsis Action Taken by Nursing 02/19/25 12:30 02/19/25 12:30 02/19/25 12:51 Temperature Temperature Source Pulse Rate 58 L 55 L Pulse Rate [Apical] Pulse Rate from SpO2 Sensor 59 L 56 L Respiratory Rate 20 20 Respiratory Effort / Characteristics Respiratory Depth Respiratory Pattern Blood Pressure 123/69 Blood Pressure [Right Arm] Blood Pressure Mean 89 Blood Pressure Mean [Right Arm] Blood Pressure Position [Right Arm] Pulse Oximetry 95 96 Oxygen Delivery Method Sepsis Recent Fever Within 48 Hours Sepsis New/Unexplained Change in Mental Status Sepsis Action Taken by Nursing 02/19/25 13:00 02/19/25 13:09 02/19/25 13:10 Temperature Temperature Source Pulse Rate 58 L 62 Pulse Rate [Apical] 62 Pulse Rate from SpO2 Sensor 58 L 61 Respiratory Rate 14 15 19 Respiratory Effort / Characteristics Non-Labored Spontaneous Respiratory Depth Normal Respiratory Pattern Regular Blood Pressure Blood Pressure [Right Arm] 127/74 Blood Pressure Mean Blood Pressure Mean [Right Arm] 91 Blood Pressure Position [Right Arm] Lying Pulse Oximetry 96 96 97 Oxygen Delivery Method Room Air Sepsis Recent Fever Within 48 Hours Sepsis New/Unexplained Change in Mental Status Sepsis Action Taken by Nursing 02/19/25 13:10 02/19/25 13:15 02/19/25 13:21 Temperature Temperature Source Pulse Rate 61 61 Pulse Rate [Apical] Pulse Rate from SpO2 Sensor 61 63 Respiratory Rate 16 22 Respiratory Effort / Characteristics Respiratory Depth Respiratory Pattern Blood Pressure 127/74 Blood Pressure [Right Arm] Blood Pressure Mean 104 Blood Pressure Mean [Right Arm] Blood Pressure Position [Right Arm] Pulse Oximetry 95 97 Oxygen Delivery Method Sepsis Recent Fever Within 48 Hours Sepsis New/Unexplained Change in Mental Status Sepsis Action Taken by Nursing 02/19/25 13:24 02/19/25 13:30 02/19/25 13:33 Temperature Temperature Source Pulse Rate 73 63 Pulse Rate [Apical] Pulse Rate from SpO2 Sensor 70 63 Respiratory Rate 22 19 Respiratory Effort / Characteristics Respiratory Depth Respiratory Pattern Blood Pressure 136/82 Blood Pressure [Right Arm] Blood Pressure Mean 103 Blood Pressure Mean [Right Arm] Blood Pressure Position [Right Arm] Pulse Oximetry 96 97 Oxygen Delivery Method Sepsis Recent Fever Within 48 Hours Sepsis New/Unexplained Change in Mental Status Sepsis Action Taken by Nursing 02/19/25 13:48 02/19/25 13:57 02/19/25 14:00 Temperature Temperature Source Pulse Rate 66 63 67 Pulse Rate [Apical] Pulse Rate from SpO2 Sensor 67 63 66 Respiratory Rate 16 15 18 Respiratory Effort / Characteristics Respiratory Depth Respiratory Pattern Blood Pressure Blood Pressure [Right Arm] Blood Pressure Mean Blood Pressure Mean [Right Arm] Blood Pressure Position [Right Arm] Pulse Oximetry 95 94 97 Oxygen Delivery Method Sepsis Recent Fever Within 48 Hours Sepsis New/Unexplained Change in Mental Status Sepsis Action Taken by Nursing 02/19/25 14:00 02/19/25 14:15 02/19/25 14:27 Temperature Temperature Source Pulse Rate 69 69 Pulse Rate [Apical] Pulse Rate from SpO2 Sensor 69 69 Respiratory Rate 18 16 Respiratory Effort / Characteristics Respiratory Depth Respiratory Pattern Blood Pressure 132/86 Blood Pressure [Right Arm] Blood Pressure Mean 100 Blood Pressure Mean [Right Arm] Blood Pressure Position [Right Arm] Pulse Oximetry 97 95 Oxygen Delivery Method Sepsis Recent Fever Within 48 Hours Sepsis New/Unexplained Change in Mental Status Sepsis Action Taken by Nursing 02/19/25 14:30 02/19/25 14:30 02/19/25 14:33 Temperature Temperature Source Pulse Rate 68 Pulse Rate [Apical] Pulse Rate from SpO2 Sensor 67 Respiratory Rate 18 Respiratory Effort / Characteristics Respiratory Depth Respiratory Pattern Blood Pressure 115/68 115/68 Blood Pressure [Right Arm] Blood Pressure Mean 83 83 Blood Pressure Mean [Right Arm] Blood Pressure Position [Right Arm] Pulse Oximetry 93 Oxygen Delivery Method Sepsis Recent Fever Within 48 Hours Sepsis New/Unexplained Change in Mental Status Sepsis Action Taken by Nursing 02/19/25 14:51 02/19/25 15:00 02/19/25 15:00 Temperature Temperature Source Pulse Rate 65 Pulse Rate [Apical] Pulse Rate from SpO2 Sensor 65 Respiratory Rate 15 Respiratory Effort / Characteristics Respiratory Depth Respiratory Pattern Blood Pressure 123/81 123/81 Blood Pressure [Right Arm] Blood Pressure Mean 97 97 Blood Pressure Mean [Right Arm] Blood Pressure Position [Right Arm] Pulse Oximetry 95 Oxygen Delivery Method Sepsis Recent Fever Within 48 Hours Sepsis New/Unexplained Change in Mental Status Sepsis Action Taken by Nursing 02/19/25 15:21 02/19/25 15:45 Temperature Temperature Source Pulse Rate 65 Pulse Rate [Apical] 62 Pulse Rate from SpO2 Sensor 65 Respiratory Rate 16 Respiratory Effort / Characteristics Non-Labored Spontaneous Respiratory Depth Normal Respiratory Pattern Regular Blood Pressure Blood Pressure [Right Arm] 124/77 Blood Pressure Mean Blood Pressure Mean [Right Arm] 92 Blood Pressure Position [Right Arm] Pulse Oximetry 95 96 Oxygen Delivery Method Room Air Sepsis Recent Fever Within 48 Hours Sepsis New/Unexplained Change in Mental Status Sepsis Action Taken by Nursing VITAL SIGNS - Vital signs and nursing notes were reviewed. Stable and afebrile. GENERAL -54-year-old male appearing his stated age who is in no acute distress. Communicates well with provider and answers questions appropriately. SKIN - Without rashes. No meningeal or petechial rash. HEAD - NC/AT. No christianson signs or raccoon's eyes. EYES - Sclera anicteric. EARS -no hemotympanum. NOSE - Midline and without cyanosis. No epistaxis or purulent drainage noted. Septum midline without deviation or septal hematoma noted. MOUTH/OROPHARYNX - Without perioral cyanosis. Buccal mucosa pink and moist and without leukoplakia. Tongue midline with equal elevation of palate bilaterally. No tonsillar hypertrophy, erythema, or exudates noted. Good dentition noted. NECK - Neck with FROM. C spine non tender. No nuchal rigidity. LUNGS - CTA CARDIAC - RRR ABDOMEN - Abdominal contour normal without pulsations or visible masses. BS normoactive all four quadrants. No tenderness, palpable masses, hepatosplenomegaly, or ascites noted. EXTREMITIES - No clubbing or peripheral cyanosis. +5/5 strength noted in UE/LE bilaterally. MSKthere is tenderness overlying the superior aspect of the L-spine spinous processes and paraspinous musculature NEUROLOGIC - Cranial nerves II through XII grossly intact. PSYCH -alert, oriented and pleasant on exam Course Administered Medications Discontinued Medications Diazepam (Diazepam Inj 5 Mg/Ml 2 Ml Carp) 10 mg IV NOW STA Stop: 02/19/25 11:50 Last Admin: 02/19/25 11:59 Dose: 10 mg Documented By: MARY JANE Morphine Sulfate (Morphine Sulfate 10 Mg/Ml Carp/Vial) 10 mg IV NOW STA Stop: 02/19/25 12:52 Last Admin: 02/19/25 12:55 Dose: 10 mg Documented By: KAI Morphine Sulfate (Morphine Sulfate 10 Mg/Ml Carp/Vial) 10 mg IV NOW STA Stop: 02/19/25 13:30 Last Admin: 02/19/25 13:32 Dose: 10 mg Documented By: MARY JANE Medical Decision Making Laboratory Data 02/19/25 11:30 02/19/25 11:30 Lab Results 02/19/25 02/19/25 Range/Units 11:30 13:59 WBC 5.54 (4.8-10.8) K/ul RBC 5.38 (4.70-6.10) M/uL Hgb 16.2 (14.0-18.0) g/dl Hct 46.1 (42.0-52.0) % MCV 85.7 (80.0-100.0) fL MCH 30.1 (25.0-34.0) pg MCHC 35.1 (32.0-36.0) g/dL RDW Std Deviation 40.1 (36.4-46.3) fL RDW Coeff of Kacey 13.0 (11.5-14.5) % Plt Count 137 (130-400) K/uL MPV 8.7 L (9.4-12.4) fL Immature Gran % (Auto) 1.1 % Neut % (Auto) 55.5 % Lymph % (Auto) 30.1 % Richardson % (Auto) 9.4 % Eos % (Auto) 3.4 % Baso % (Auto) 0.5 % Neut # (Auto) 3.07 (1.40-6.50) K/uL Lymph # (Auto) 1.67 (1.20-3.40) K/uL Richardson # (Auto) 0.52 (0.11-0.59) K/uL Eos # (Auto) 0.19 (0.00-0.50) K/uL Baso # (Auto) 0.03 (0.00-0.20) K/uL Immature Gran # (Auto) 0.06 (0.01-0.20) K/uL PT 11.0 (9.0-12.0) Seconds INR 1.0 (0.9-1.1) APTT 25 (21-31) Seconds PTT Ratio 0.9 Sodium 136 (136-145) mmol/L Potassium 4.3 (3.5-5.1) mmol/L Chloride 106 (98-107) mmol/L Carbon Dioxide 25 (21-32) mmol/L Anion Gap 5 (3-11) BUN 27 H (6-23) mg/dl Creatinine 1.03 (0.6-1.4) mg/dl Est Cr Clr Drug Dosing 107.4 ml/min eGFR 86.32 BUN/Creatinine Ratio 26.2 H (10-20) Glucose 100 H (70-99(Fasting)) mg/dl Calcium 9.1 (8.6-10.3) mg/dl Total Bilirubin 0.4 (0.2-1.0) mg/dl AST 14 (13-39) U/L ALT 21 (7-52) U/L Alkaline Phosphatase 57 (34-104) U/L Total Protein 6.9 (6.0-8.3) gm/dl Albumin 4.3 (3.4-5.0) gm/dl Globulin 2.6 (2.5-4.0) gm/dl Albumin/Globulin Ratio 1.7 (0.9-2) Procalcitonin 0.05 (0-0.5) ng/ml Urine Color Yellow Urine Appearance Clear (Clear) Urine pH 7.0 (4.5-7.5) Ur Specific [place] 1.017 (1.000-1.030) Urine Protein Negative (Negative) Urine Glucose (UA) Negative (Negative) Urine Ketones Negative (Negative) Urine Blood Negative (Negative) Urine Nitrite Negative (Negative) Urine Bilirubin Negative (Negative) Urine Urobilinogen Negative (Negative) Ur Leukocyte Esterase Negative (Negative) Urine Comment Imaging Data Radiologist's Impression: Head CT 02/19/25 11:51 CT head/brain wo con CLINICAL HISTORY: Fall, struck head. TECHNIQUE: Multiple axial CT images of the head were obtained without contrast. A dose lowering technique was utilized adhering to the principles of ALARA. CT DOSE: 1771.84 mGy.cm COMPARISON: 01/22/2025 FINDINGS: No intracranial hemorrhage seen. No mass effect, midline shift, or hydrocephalus. No skull fracture seen. Stable mild mucosal thickening at the sphenoid sinus. Otherwise the visualized paranasal sinuses and mastoid air cells are clear. IMPRESSION: No acute findings. ACT 112: Negative or not required by law. The above report was generated using voice recognition software. It may contain grammatical, syntax or spelling errors. Electronically signed by: Vladislav Harmon M.D. 02/19/2025 12:[address] 02/19/25 11:51 CT lumbar spine wo con CLINICAL HISTORY: Fall, back pain COMPARISON STUDY: Lumbar spine CT and lumbar spine MRI January 22, 2025. TECHNIQUE: Axial images of the lumbar spine were obtained without IV contrast. Sagittal and coronal reformats were viewed. A dose lowering technique was utilized adhering to the principles of ALARA. FINDINGS: For purposes of numbering on this exam, the L5-S1 disc space is assigned to axial image 335 of 409. There are postoperative findings following L4-L5 and L5-S1 discectomy and fusion. Hardware is intact. Alignment of the lumbar spine is anatomic. Vertebral body heights are maintained. There are no fractures. There are no suspicious osseous lesions. Central canal and neural foramen are suboptimally assessed given CT technique. Paravertebral soft tissues are unremarkable by CT. IMPRESSION: 1. No acute lumbar spine fracture or subluxation. 2. Stable findings following L4-S1 discectomy and fusion. ACT 112: Negative or not required by law. Electronically signed by: Bradley Messer M.D. 02/19/2025 12:37 PM Elbow X-Ray 02/19/25 12:04 XR elbow RT min 3V routine CLINICAL HISTORY: Fall, R elbow pain COMPARISON: None FINDINGS: No fracture or dislocation seen. IMPRESSION: No fracture seen. ACT 112: Negative or not required by law. Electronically signed by: Vladislav Harmon M.D. 02/19/2025 12:57 PM Chest X-Ray 02/19/25 14:33 XR chest 1V portable CLINICAL HISTORY: Sepsis COMPARISON STUDY: 06/16/2024 FINDINGS: Heart size and pulmonary vasculature are normal. No consolidation or pleural effusion. No pneumothorax. IMPRESSION: No acute findings. ACT 112: Negative or not required by law. Electronically signed by: Vladislav Harmon M.D. 02/19/2025 3:13 PM [facility] Narrative Patient was seen and evaluated as above in room A03. Review was performed of triage nursing notes and vital signs. I did review pertinent previous visits and patient history. After obtaining a thorough history and physical examination the above work up was performed. Patient presents to us today for evaluation of injury status post fall. Patient notes ongoing chronic back pain acutely worsened status post fall today. He denies any bowel or bladder incontinence. No numbness or tingling in genital area. There is no weakness to the extremities on my examination of the patient. There is no rib tenderness. Only area of tenderness is overlying the superior L-spine area. The patient has a benign abdomen. No peritoneal signs and no guarding/rigidity. There is no C- spine tenderness. Options of care were discussed with the patient. IV access was already established and labs were drawn. There is no leukocytosis or concerning anemia. No emergent metabolic disturbance. Urinalysis does not suggest infection. A CT scan of the head and L-spine were performed noting the injury. Results as above. These were essentially negative for acute process. A right elbow x-ray was performed and was negative. The patient did require significant elevated doses here of IV analgesia with minimal improvement. Patient was maintained on cardiac and pulse ox imaging monitoring noting the medication received. No adverse issues noted. At this time noting ongoing pain I do believe that further evaluation and management in the inpatient setting is warranted. Case discussed with the hospitalist service. Please refer to further documentation regarding his stay. As the patient is neurovascularly intact at this time, I do not believe that emergent MRI of the L-spine in the emergency department at this time is needed, but certainly this may be further considered depending on clinical course. GCS: 15. In the evaluation and treatment of this patient the following differential diagnoses were entertained: Intracranial hemorrhage, retroperitoneal/intra- abdominal hemorrhage, L-spine fracture, rib fracture, among others. Impression & Plan Intractable low back pain, Fall, Abrasion of forehead Discharge Plan Visit Data Chief Complaint: Fall ED Provider: Dre Asif ED Midlevel Provider: Isaias Mccormick Discharge Problem: Intractable low back pain, Fall, Abrasion of forehead Patient Disposition: Admitted As Inpatient Condition: Good
[2025-02-19 12:23] LABS: Hematocrit (blood only) 46.1 % (42.0-52.0); Hemoglobin 16.2 g/dl (14.0-18.0); Immature Granulocytes # (auto) 0.06 K/uL (0.01-0.20); Immature Granulocytes % (auto) 1.1 %; Mean Corpuscular Hemoglobin 30.1 pg (25.0-34.0); Mean Corpuscular Volume 85.7 fL (80.0-100.0); Platelet Count 137 K/uL (130-400); RDW Standard Deviation 40.1 fL (36.4-46.3); Red Blood Count 5.38 M/uL (4.70-6.10); White Blood Count 5.54 K/ul (4.8-10.8)
--- NOTE | 2025-02-19 12:27 | CT Scan Report ---
CT head/brain wo con CLINICAL HISTORY: Fall, struck head. TECHNIQUE: Multiple axial CT images of the head were obtained without contrast. A dose lowering tech nique was utilized adhering to the principles of ALARA. CT DOSE: 1771.84 mGy.cm COMPARISON: 01/22/2025 FINDINGS: No intracranial hemorrhage seen. No mass effect, midline shift, or hydrocephalus. No skull fracture seen. Stable mild mucosal thickening at the sphenoid sinus. Otherwise the visualized paranas al sinuses and mastoid air cells are clear. IMPRESSION: No acute findings. ACT 112: Negative or not required by law. The above report was generated using voice recognition software. It may contain grammatical, syntax o r spelling errors. Electronically signed by: Vladislav Harmon M.D. 02/19/2025 12:26 PM
[2025-02-19 12:39] LABS: Anion Gap 5.0 (3-11); Bilirubin,Total 0.4 mg/dl (0.2-1.0); Calcium 9.1 mg/dl (8.6-10.3); Carbon Dioxide 25.0 mmol/L (21-32); Chloride 106.0 mmol/L (98-107); Potassium 4.3 mmol/L (3.5-5.1); Sodium 136.0 mmol/L (136-145)
--- NOTE | 2025-02-19 12:39 | CT Scan Report ---
CT lumbar spine wo con CLINICAL HISTORY: Fall, back pain COMPARISON STUDY: Lumbar spine CT and lumbar spine MRI January 22, 2025. TECHNIQUE: Axial images of the lumbar spine were obtained without IV contrast. Sagittal and coronal r eformats were viewed. A dose lowering technique was utilized adhering to the principles of ALARA. FINDINGS: For purposes of numbering on this exam, the L5-S1 disc space is assigned to axial image 335 of 409. There are postoperative findings following L4-L5 and L5-S1 discectomy and fusion. Hardware i s intact. Alignment of the lumbar spine is anatomic. Vertebral body heights are maintained. There are no fractures. There are no suspicious osseous lesions. Central canal and neural foramen are suboptim ally assessed given CT technique. Paravertebral soft tissues are unremarkable by CT. IMPRESSION: 1. No acute lumbar spine fracture or subluxation. 2. Stable findings following L4-S1 discectomy and fusion. ACT 112: Negative or not required by law. Electronically signed by: Bradley Messer M.D. 02/19/2025 12:37 PM
[2025-02-19 12:45] LABS: Alanine Aminotransferase 21.0 U/L (7-52); Albumin Globulin Ratio 1.7 (0.9-2); Alkaline Phosphatase 57.0 U/L (34-104); Blood Urea Nitrogen 27.0 mg/dl (6-23); Creatinine Clr Calc Pharmacy 107.4 ml/min; Globulin 2.6 gm/dl (2.5-4.0); Glucose 100.0 mg/dl (70-99(Fasting)); INR 1.0 (0.9-1.1); Partial Thromboplastin Time 25 Seconds (21-31); Prothrombin Time 11.0 Seconds (9.0-12.0); Total Protein 6.9 gm/dl (6.0-8.3)
[2025-02-19] MEDS: MoRPHine SULFATE 10 MG/ML CARP/VIAL IV STA ×2 (12:55→13:32)
--- NOTE | 2025-02-19 12:58 | XRay Report ---
XR elbow RT min 3V routine CLINICAL HISTORY: Fall, R elbow pain COMPARISON: None FINDINGS: No fracture or dislocation seen. IMPRESSION: No fracture seen. ACT 112: Negative or not required by law. Electronically signed by: Vladislav Harmon M.D. 02/19/2025 12:57 PM
[2025-02-19 14:17] LABS: Appearance Urine Clear (Clear); Glucose Urine UA Negative (Negative)
--- NOTE | 2025-02-19 14:46 | History & Physical Report ---
Date of Service February 19, 2025 Assessment & Plan (1) Intractable low back pain: (2) Chronic back pain: (3) Hypertension: (4) Hyperlipidemia: (5) Sleep apnea: (6) Anxiety and depression: (7) Failed back surgical syndrome: (8) Migraine with aura: (9) Esophageal reflux: Plan Acute intractable low back pain Chronic low back pain Lumbar stenosis - acute and severe exacerbation of his chronic low back pain. Multiple surgeries, very complicated recent history. Multiple severe exacerbations in recent weeks, awaiting spinal stimulator implant likely in March - multimodal pain control, supportive cares, Valium 10 mg every 6 for spasm, add Decadron 10 mg every 24 and de-escalate as symptoms improve, oxycodone oral every 6 hours 10 mg, breakthrough with morphine 10 mg every 2 hours as needed, will add Toradol 10 mg x 1 use sparingly but he has tolerated this in combination with his cardiac meds in the past - history of sleep apnea, history of hypoxia and respiratory failure. High risk given multiple sedative medications, will admit to PCU for close respiratory monitoring - PT and OT consult - if he does not respond well after the initial course of abortive medications will consult to spine surgery for further evaluation although surgical options were reportedly limited - Continuous pulse ox as above - He follows with [facility] pain management center, will notify on his admission, last epidural injection was December 2024 although he states it resulted in minimal to no relief Hypertension - Blood pressures within normal range at this time - no intervention required at this time, closely monitor, losartan was discontinued recently secondary to hypotension Obstructive sleep apnea History of respiratory failure - he does not use CPAP at home, will continuously monitor with pulse ox. - He has used albuterol in the past, will continue - close monitoring for respiratory pression as above Coronary artery disease, history of NSTEMI - follows with cardiology, - DAPT with aspirin, ticagrelor Anxiety Depression History of PTSD - continue Zoloft 100 mg, trazodone 150 mg at night Migraine - well-controlled at this time does follow with neurology, and reading the notes it seems as he had a atypical or complex migraine history initially thought to possibly be seizure. Well-controlled recently Prophylaxis - PPI plus Lovenox CODE STATUS - full code per his wishes, discussed with he and his son at the bedside at the time of admission History of Present Illness Chief Complaint: Severe back pain Primary Care Provider: RESHMA Barnett 50-year-old male history of chronic back pain status post multiple lumbar back surgeries, cervical discectomy, status post fusion. Also history of migraines, coronary disease, NSTEMI with stents x 2, hypertension, hyperlipidemia, anxiety depression, PTSD, sleep apnea presents after acute and severe exacerbation of his chronic low back pain. This is his second severe exacerbation in the last 3 weeks and the third in the last 3 months. He currently follows in the outpatient setting is and awaiting a spinal stimulator implant. This is typically managed with Tylenol, Toradol in the outpatient setting. Today was doing routine things at the home walking his trash containers to the roadside when the pain sat on. Severe, typical, debilitating. States he lost his breath fell to his knees. Reports that he rolled a short way down a grassy hill. no head injury, no loss of consciousness report no additional trauma or sites of injury. EMS was contacted he was transported here he was given 30 mg of ketamine and 100 mcg of fentanyl and route. On arrival to the emergency department CT scan was done which showed no acute significant abnormalities. He was given 10 of diazepam and 10 mg x 2 of IV morphine with only minimal relief. The event happened at approximately 915 this morning. He has had no relief since then. Initially Toradol typically helps him but was withheld secondary to the question of trauma early on. At this point he reports no new or atypical symptoms. Pain still rated at 10 out of 10. Given the intractable nature of his pain he was referred to us for admission, ongoing abortive pain medication dose escalation. And close respiratory monitoring given the high risk nature of his symptoms. Allergies Allergy/AdvReac Type Severity Reaction Status Date / Time hydromorphone Allergy Severe SHORTNESS Verified 02/07/25 10:07 OF BREATH Penicillins Allergy Severe ALLERGY TO Verified 02/07/25 10:07 [id number] doxycycline Allergy Intermediate BLISTERS/HI Verified 02/07/25 10:07 VES lamotrigine Allergy Intermediate tremors Verified 02/07/25 10:07 clindamycin AdvReac Intermediate NAUSEA Verified 02/07/25 10:07 eletriptan AdvReac Mild nausea/vomi Verified 02/07/25 10:07 ting gabapentin AdvReac Anaphylaxis Verified 02/07/25 10:07 Home Medications Medication Instructions Recorded Confirmed Type tadalafil 5 mg tablet 20 mg (4 x 5 mg) PO ONCE PRN 04/13/23 02/19/25 Rx sexual activity #30 tabs nitroglycerin 0.4 mg sublingual 0.4 mg sublingual Q5M PRN chest 09/07/23 02/19/25 Rx tablet (Nitrostat) pain #1 btl sertraline 100 mg tablet (Zoloft) 100 mg PO QAM #90 tabs 03/31/24 02/19/25 Rx trazodone 150 mg tablet 150 mg PO HS #90 tabs 03/31/24 02/19/25 Rx fenofibrate nanocrystallized 145 145 mg PO QAM 05/23/24 02/19/25 History mg tablet albuterol sulfate 90 mcg/actuation 2 puff inhalation Q6H PRN 08/21/24 02/19/25 Rx aerosol inhaler Shortness Of Breath Or Wheezing #18 grams levocetirizine 5 mg tablet (Xyzal) 0 mg PO PM 09/27/24 02/19/25 History atorvastatin 40 mg tablet 40 mg PO QAM #90 tabs 10/10/24 02/19/25 Rx clopidogrel 75 mg tablet 75 mg PO QAM #90 tabs 10/11/24 02/19/25 Rx benzonatate 200 mg capsule 200 mg PO TID PRN cough #30 caps 11/14/24 02/19/25 Rx montelukast 10 mg tablet 10 mg PO QPM #90 tabs 01/09/25 02/19/25 Rx pantoprazole 40 mg tablet,delayed 40 mg PO QAM #90 tabs 01/09/25 02/19/25 Rx release acetaminophen 500 mg tablet 1,000 mg (2 x 500 mg) PO Q8H #60 01/25/25 02/19/25 Rx (Tylenol Extra Strength) tabs oxycodone 10 mg tablet 10 mg PO Q6H PRN pain #7 tabs 01/25/25 02/19/25 Rx diazepam 10 mg tablet 10 mg PO Q6H PRN muscle spasm #10 02/07/25 02/19/25 Rx tabs ketorolac 10 mg tablet 10 mg PO Q6H PRN pain #20 tabs 02/07/25 02/19/25 Rx pregabalin 50 mg capsule (Lyrica) 50 mg PO BID #60 caps 02/07/25 02/19/25 Rx Past Med/Surg History Problem List (Updated 01/28/25 @ 00:08 by Irene Walker) CHI (closed head injury) (Acute) Low back pain (Acute) Fall (Acute) Neuroforaminal stenosis of lumbar spine Postlaminectomy syndrome of lumbosacral region Lumbar radicular pain Ambulatory dysfunction (Acute) Intractable low back pain (Acute) Degenerative disc disease Spinal stenosis Cigar smoker Allergic rhinitis with postnasal drip Chronic cough Abnormal CT scan, chest Acute respiratory failure with hypoxia BYRD (dyspnea on exertion) (Acute) Pneumonia involving right lung (Acute) Failure of outpatient treatment Acute on chronic respiratory failure with hypoxia Multifocal pneumonia Pneumonia (Acute) Migraine Coronary artery disease Epidermal cyst Sebaceous cyst De Quervain's tenosynovitis Depression (Chronic) Anxiety (Chronic) 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 David Shea ([facility]) Dyslipidemia (Chronic) Hypertension (Chronic) Allergic rhinitis Post traumatic stress disorder (Chronic) Cervical spinal stenosis (Chronic) Thoracic degenerative disc disease (Chronic) Erectile dysfunction (Chronic) Chronic daily headache Medical History Hypoxia NSTEMI (non-ST elevated myocardial infarction) Viral pneumonia Chest pain Disc degeneration, lumbar Esophageal reflux Obstructive sleep apnea Migraine with aura Parainfluenza virus bronchitis Froin's syndrome FOLLOWED BY DR. SHEA Failed back surgical syndrome Post traumatic stress disorder Anxiety and depression FOLLOWS COUNSELOR 1 X PER MONTH Hypertension Hyperlipidemia Sleep apnea no device Left lateral epicondylitis History of suicide attempt Status epilepticus (10/19/13) No problems since, had mini-seizures r/t "body shutting down". believed r/t the Froin's syndrome. treated at [facility]. HOSPITALIZED 2013 AND 2016 "BELIEVES RELATED TO GABAPENTIN NOT BROKEN DOWN" Surgical History EIC (epidermal inclusion cyst) (12/14/24) History of colonoscopy (~09/2021) Family history of reaction to anesthesia Cyst S/P lumbar and lumbosacral fusion by anterior technique [place] teeth removed S/P cervical spinal fusion History of esophagogastroduodenoscopy (EGD) Family History Grandfather (Maternal) Diabetes Mother FHx: skin cancer Sinus disorder Grandmother (Maternal) FHx: stomach cancer Brother Asthma Sinus disorder Father Cardiac disorder Lumbar disc disease Parkinson disease Aunt Diabetes Uncle Diabetes Grandmother Cancer Other Gallbladder disease Heart disease Hypertension Social History Smoking Status: Former smoker Tobacco Type: Cigars Second Hand Exposure: Yes; Do You Dip or Chew Tobacco: No; Hx Alcohol Use: Yes Alcohol type: beer Alcohol Intake Frequency: 2-4 x/Month Hx Substance Use: No Preferred Language: [place] Communication Ability: Effective Visual Impairment: No Limitations Hearing Ability: Normal Customer Contact Sales Associate Required: No Beliefs That Will Affect Care: None marital status: Current Living Situation: Spouse and Family Current Living Situation Comment: 1 story home with 2 steps to enter home current occupational status: employed 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[employer] How many Children do You have: 1 Feels Safe at Home: Yes Childhood Exposure to Second-Hand Smoke: No Diet: regular during the past year weight has: decreased > 10 lbs Dental Care, Regularly: Yes Physical Activity Frequency: Daily Seatbelt Use: always Sunscreen Use: No Assistive Devices: Cane and Walker Review of Systems Constitutional: No fevers chills or generalized signs of illness Eyes: no vision change Respiratory: no shortness of breath, no difficulty breathing Cardiovascular: Additional Comments: no chest pain, palpitations, lower extremity edema Gastrointestinal: no diarrhea or constipation Integumentary: no rash pallor or discoloration Neurologic: chronic numbness in the lateral aspect of the left foot unchanged. No acute interval changes in sensation or strength Physical Exam Constitutional: lying in hospital bed, visible distress. Able to communicate without duress Eyes: sclera clear and anicteric pupils equal round reactive to light Respiratory: clear to auscultation bilaterally Cardiovascular: regular rate and rhythm no murmurs rubs or gallops Gastrointestinal (Abdomen): nontender, normal bowel sounds Skin: no rash or discoloration Neurologic: intact sensation in the lower extremities bilaterally. No clear dermatomal deficiencies. Spontaneous movement in all extremities. Pain evaluation lower extremities limited secondary to acute severe pain. Babinski negative. Proprioception intact Results & Data Results & Data Vital Signs (Past 12 Hours) Vital Signs Temp Pulse Pulse Resp BP BP Pulse Ox 02/19/25 13:10 62 19 127/74 97 02/19/25 12:30 54 L 16 113/76 96 02/19/25 11:49 64 16 97 02/19/25 11:49 60 02/19/25 11:26 36.6 C 66 16 126/87 97 O2 Del Method 02/19/25 13:10 Room Air 02/19/25 12:30 Room Air 02/19/25 11:49 Room Air 02/19/25 11:49 02/19/25 11:26 Room Air Laboratory Results 02/19/25 02/19/25 13:59 11:30 WBC 5.54 RBC 5.38 Hgb 16.2 Hct 46.1 MCV 85.7 MCH 30.1 MCHC 35.1 RDW Std Deviation 40.1 RDW Coeff of K[place] 13.0 Plt Count 137 MPV 8.7 L Immature Gran % (Auto) 1.1 Neut % (Auto) 55.5 Lymph % (Auto) 30.1 [place] % (Auto) 9.4 Eos % (Auto) 3.4 Baso % (Auto) 0.5 Neut # (Auto) 3.07 Lymph # (Auto) 1.67 [place] # (Auto) 0.52 Eos # (Auto) 0.19 Baso # (Auto) 0.03 Immature Gran # (Auto) 0.06 PT 11.0 INR 1.0 APTT 25 PTT Ratio 0.9 Sodium 136 Potassium 4.3 Chloride 106 Carbon Dioxide 25 Anion Gap 5 BUN 27 H Creatinine 1.03 Est Cr Clr Drug Dosing 107.4 eGFR 86.32 BUN/Creatinine Ratio 26.2 H Glucose 100 H Calcium 9.1 Total Bilirubin 0.4 AST 14 ALT 21 Alkaline Phosphatase 57 Total Protein 6.9 Albumin 4.3 Globulin 2.6 Albumin/Globulin Ratio 1.7 Urine Color Yellow Urine Appearance Clear Urine pH 7.0 Ur Specific [place] 1.017 Urine Protein Negative Urine Glucose (UA) Negative Urine Ketones Negative Urine Blood Negative Urine Nitrite Negative Urine Bilirubin Negative Urine Urobilinogen Negative Ur Leukocyte Esterase Negative Urine Comment Diagnostic Findings Head CT 02/19/25 11:51 CT head/brain wo con CLINICAL HISTORY: Fall, struck head. TECHNIQUE: Multiple axial CT images of the head were obtained without contrast. A dose lowering technique was utilized adhering to the principles of ALARA. CT DOSE: 1771.84 mGy.cm COMPARISON: 01/22/2025 FINDINGS: No intracranial hemorrhage seen. No mass effect, midline shift, or hydrocephalus. No skull fracture seen. Stable mild mucosal thickening at the sphenoid sinus. Otherwise the visualized paranasal sinuses and mastoid air cells are clear. IMPRESSION: No acute findings. ACT 112: Negative or not required by law. The above report was generated using voice recognition software. It may contain grammatical, syntax or spelling errors. Electronically signed by: Vladislav Harmon M.D. 02/19/2025 12:[address] 02/19/25 11:51 CT lumbar spine wo con CLINICAL HISTORY: Fall, back pain COMPARISON STUDY: Lumbar spine CT and lumbar spine MRI January 22, 2025. TECHNIQUE: Axial images of the lumbar spine were obtained without IV contrast. Sagittal and coronal reformats were viewed. A dose lowering technique was utilized adhering to the principles of ALARA. FINDINGS: For purposes of numbering on this exam, the L5-S1 disc space is assigned to axial image 335 of 409. There are postoperative findings following L4-L5 and L5-S1 discectomy and fusion. Hardware is intact. Alignment of the lumbar spine is anatomic. Vertebral body heights are maintained. There are no fractures. There are no suspicious osseous lesions. Central canal and neural foramen are suboptimally assessed given CT technique. Paravertebral soft tissues are unremarkable by CT. IMPRESSION: 1. No acute lumbar spine fracture or subluxation. 2. Stable findings following L4-S1 discectomy and fusion. ACT 112: Negative or not required by law. Electronically signed by: Bradley Messer M.D. 02/19/2025 12:37 PM Elbow X-Ray 02/19/25 12:04 XR elbow RT min 3V routine CLINICAL HISTORY: Fall, R elbow pain COMPARISON: None FINDINGS: No fracture or dislocation seen. IMPRESSION: No fracture seen. ACT 112: Negative or not required by law. Electronically signed by: Vladislav Harmon M.D. 02/19/2025 12:57 PM ECG Additional Comments: sinus bradycardia with sinus arrhythmia otherwise normal Code Status & VTE Plan Code Status full code VTE Prophylaxis Plan VTE Prophylaxis will be ordered: Yes PG Care Time/CCT Total # of Minutes Spent Total Time Spent with Patient: Total time spent is greater than 50% in coordination of care (as documented) at patient's floor/unit and/or counseling patient: Coding Level of Care Code 01428 INT INP/OBS CARE MIN Diagnoses Intractable low back pain M54.59 Chronic back pain M54.9; G89.29 Hypertension I10 Hyperlipidemia E78.5 Sleep apnea G47.30 Anxiety and depression F41.9; F32.A Failed back surgical syndrome M96.1 Migraine with aura G43.109 Esophageal reflux K21.9
--- NOTE | 2025-02-19 15:15 | XRay Report ---
XR chest 1V portable CLINICAL HISTORY: Sepsis COMPARISON STUDY: 06/16/2024 FINDINGS: Heart size and pulmonary vasculature are normal. No consolidation or pleural effusion. No p neumothorax. IMPRESSION: No acute findings. ACT 112: Negative or not required by law. Electronically signed by: Vladislav Harmon M.D. 02/19/2025 3:13 PM
[2025-02-19] MEDS ORDERED: ALBUTEROL HFA 8 GM INHALER INH PRN (16:01)
[2025-02-19] MEDS: ACETAMINOPHEN 500 MG TAB PO SCH (16:38)
[2025-02-19] MEDS: KETOROLAC TROMETHAMINE 15 MG/ML VIAL IV ONE (16:38)
[2025-02-19 16:58] LABS: Alanine Aminotransferase 23.0 U/L (7-52); Alkaline Phosphatase 47.0 U/L (34-104); Anion Gap 6.0 (3-11); Bilirubin,Total 0.5 mg/dl (0.2-1.0); Blood Urea Nitrogen 25.0 mg/dl (6-23); Calcium 9.0 mg/dl (8.6-10.3); Carbon Dioxide 28.0 mmol/L (21-32); Chloride 105.0 mmol/L (98-107); Creatinine Clr Calc Pharmacy 106.4 ml/min; Glucose 85.0 mg/dl (70-99(Fasting)); Magnesium 2.1 mg/dl (1.7-2.4); Potassium 4.0 mmol/L (3.5-5.1); Sodium 139.0 mmol/L (136-145); Total Protein 7.1 gm/dl (6.0-8.3)
[2025-02-19] MEDS: dexAMETHasone 10 MG in SYRINGE 0 ML IV SCH (17:20)
[2025-02-19] MEDS: MoRPHine SULFATE 10 MG/ML CARP/VIAL IV PRN (18:21)
[2025-02-19] MEDS: MONTELUKAST SODIUM 10 MG TABLET PO SCH (20:37)
[2025-02-20] MEDS: POLYETHYLENE (MIRALAX) 17 GM PACK PO SCH (00:23)
[2025-02-20] MEDS: FENOFIBRATE NANOCRYSTALLIZED 145 MG TABLET PO SCH (07:59)
[2025-02-20] MEDS: ATORVASTATIN 40 MG TAB PO SCH (07:59)
[2025-02-20] MEDS: SERTRALINE HCL 100 MG TABLET PO SCH (07:59)
[2025-02-20] MEDS: CLOPIDOGREL BISULFATE 75 MG TAB PO SCH (07:59)
[2025-02-20] MEDS ORDERED: NALOXONE HCL 0.4 MG/1 ML VIAL/CARP IV PRN (09:33)
--- NOTE | 2025-02-20 09:48 | Magnetic Resonance Report ---
MRI OF THE LUMBAR SPINE WITHOUT CONTRAST CLINICAL HISTORY: Chronic pain with severe persistent exacerbation. COMPARISON STUDY: Lumbar spine MRI January 22, [address] February 19, 2025. TECHNIQUE: Utilizing a 3 Trudi magnet and dedicated coil, multiplanar, multiecho imaging of the lumb ar spine was performed without IV contrast. Metallic artifact reduction technique was utilized. FINDINGS: For purposes of numbering on this exam, the L5-S1 disc space is assigned to axial image 18 of 25 of t he lower axial sequences. There are postoperative findings consistent with L4-L5 and L5-S1 discectomy fusion. Postoperative appearance is unchanged since MRI of January 22, 2025. There are no lumbar spin e fractures. A L1 vertebral body hemangioma is unchanged. No suspicious marrow replacement is present . Is no intracanalicular mass or fluid collection. The conus terminates at the mid L1 level. Paravert ebral soft tissues are unremarkable. L1-2: The central canal and neural foramen are patent. L2-3: There is a mild disc bulge with small central annular tear. Mild central canal stenosis is unch anged since MRI of January 22, 2025. There is desiccation of the disc. The neural foramen are patent. L3-4: There is moderate facet arthrosis with minimal disc bulge. There is mild ligamentous hypertroph y. The findings result in mild central canal stenosis with patent AP diameter of the canal is 7.1 mm. This is unchanged. The neural foramen are patent. L4-5: No recurrent central canal stenosis is identified status post decompression. The neural foramen are patent. L5-S1: No recurrent central canal stenosis is present. There is no significant neural foraminal steno sis. IMPRESSION: 1. Stable postoperative findings following L4-S1 discectomy and fusion. 2. No change in mild central canal stenosis at L2-L3 and L3-L4. 3. No significant neural foraminal stenosis. 3. No lumbar spine fractures. ACT 112: Negative or not required by law. Electronically signed by: Bradley Messer M.D. 02/20/2025 9:46 AM
[2025-02-20] MEDS: SODIUM CHLORIDE 0.9% 1,000 ML IV SCH (10:22)
--- NOTE | 2025-02-20 11:13 | Hospitalist Progress Note ---
Date of Service February 20, 2025 Assessment & Plan (1) Intractable low back pain: (2) Chronic back pain: (3) Hypertension: (4) Hyperlipidemia: (5) Sleep apnea: (6) Anxiety and depression: (7) Failed back surgical syndrome: (8) Migraine with aura: (9) Esophageal reflux: Plan Acute intractable low back pain Chronic low back pain Lumbar stenosis - acute and severe exacerbation of his chronic low back pain. remains uncontrolled. Multiple surgeries, very complicated recent history. Multiple severe exacerbations in recent weeks, awaiting spinal stimulator implant likely in March - multimodal pain control, supportive cares, Valium 10 mg every 6 for spasm, add Decadron 10 mg every 24 and de-escalate as symptoms improve, oxycodone oral every 6 hours 10 mg, breakthrough with morphine 10 mg every 2 hours as needed, will add Toradol 10 mg x 1 use sparingly but he has tolerated this in combination with his cardiac meds in the past - history of sleep apnea, history of hypoxia and respiratory failure. High risk given multiple sedative medications, will admit to PCU for close respiratory monitoring - limited relief with 80mg IV morphine over the last 20 hours, averaging 3-4mg morphine per hour, switch to FIELD TECHNICAL ASSISTANT with 6mg hourly max, continue diazepam. - MRI completed with AM with no changes, continue medical mgmt - given significant chronic compnenet, titrate to pierson-persaud scale rather than acute scale, will have staff document both. Hypertension - Blood pressures within normal range at this time - no intervention required at this time, closely monitor, losartan was discontinued recently secondary to hypotension Obstructive sleep apnea History of respiratory failure - he does not use CPAP at home, will continuously monitor with pulse ox. - He has used albuterol in the past, will continue - close monitoring for respiratory depression as above Coronary artery disease, history of NSTEMI - follows with cardiology, -He was transitoned to plavix 75mg daily in September, this was continued Anxiety Depression History of PTSD - continue Zoloft 100 mg, trazodone 150 mg at night Migraine - well-controlled at this time does follow with neurology, and reading the notes it seems as he had a atypical or complex migraine history initially thought to possibly be seizure. Well-controlled recently Prophylaxis - PPI plus Lovenox CODE STATUS - full code per his wishes, discussed with he and his son at the bedside at the time of admission Admission and Anticipated Discharge Date Admission Date: February 19, 2025 Review of Systems Constitutional: No fevers chills or generalized signs of illness Eyes: no vision change Respiratory: no shortness of breath, no difficulty breathing Cardiovascular: Additional Comments: no chest pain, palpitations, lower extremity edema Gastrointestinal: no diarrhea or constipation Integumentary: no rash pallor or discoloration Neurologic: chronic numbness in the lateral aspect of the left foot unchanged. No acute interval changes in sensation or strength Physical Exam Constitutional: lying in hospital bed, visible distress. Able to communicate without duress Eyes: sclera clear and anicteric pupils equal round reactive to light Respiratory: clear to auscultation bilaterally Cardiovascular: regular rate and rhythm no murmurs rubs or gallops Gastrointestinal (Abdomen): nontender, normal bowel sounds Skin: no rash or discoloration Neurologic: intact sensation in the lower extremities bilaterally. No clear dermatomal deficiencies. Spontaneous movement in all extremities. Pain evaluation lower extremities limited secondary to acute severe pain. Babinski negative. Proprioception intact Results & Data Results & Data Vital Signs (Past 12 Hours) Vital Signs Temp Pulse Pulse Pulse Resp BP Pulse Ox 02/20/25 09:04 63 02/20/25 07:12 36.3 C L 77 18 135/78 96 02/20/25 04:27 36.4 C L 68 16 104/66 93 02/20/25 00:14 36.6 C 70 16 116/72 93 O2 Del Method O2 Flow Rate 02/20/25 09:04 02/20/25 07:12 Room Air 02/20/25 04:27 Nasal Cannula 1 02/20/25 00:14 Room Air Diagnostic Findings Lumbar Spine MRI 02/20/25 07:29 MRI OF THE LUMBAR SPINE WITHOUT CONTRAST CLINICAL HISTORY: Chronic pain with severe persistent exacerbation. COMPARISON STUDY: Lumbar spine MRI January 22, [address] February 19, 2025. TECHNIQUE: Utilizing a 3 Trudi magnet and dedicated coil, multiplanar, multiecho imaging of the lumbar spine was performed without IV contrast. Metallic artifact reduction technique was utilized. FINDINGS: For purposes of numbering on this exam, the L5-S1 disc space is assigned to axial image 18 of 25 of the lower axial sequences. There are postoperative findings consistent with L4-L5 and L5-S1 discectomy fusion. Postoperative appearance is unchanged since MRI of January 22, 2025. There are no lumbar spine fractures. A L1 vertebral body hemangioma is unchanged. No suspicious marrow replacement is present. Is no intracanalicular mass or fluid collection. The conus terminates at the mid L1 level. Paravertebral soft tissues are unremarkable. L1-2: The central canal and neural foramen are patent. L2-3: There is a mild disc bulge with small central annular tear. Mild central canal stenosis is unchanged since MRI of January 22, 2025. There is desiccation of the disc. The neural foramen are patent. L3-4: There is moderate facet arthrosis with minimal disc bulge. There is mild ligamentous hypertrophy. The findings result in mild central canal stenosis with patent AP diameter of the canal is 7.1 mm. This is unchanged. The neural foramen are patent. L4-5: No recurrent central canal stenosis is identified status post decompression. The neural foramen are patent. L5-S1: No recurrent central canal stenosis is present. There is no significant neural foraminal stenosis. IMPRESSION: 1. Stable postoperative findings following L4-S1 discectomy and fusion. 2. No change in mild central canal stenosis at L2-L3 and L3-L4. 3. No significant neural foraminal stenosis. 3. No lumbar spine fractures. ACT 112: Negative or not required by law. Electronically signed by: Bradley Messer M.D. 02/20/2025 9:46 AM PG Care Time/CCT Total # of Minutes Spent Total Time Spent with Patient: Total time spent is greater than 50% in coordination of care (as documented) at patient's floor/unit and/or counseling patient: Coding Level of Care Code 22435 SUB INP/OBS CARE 3/50MIN Diagnoses Intractable low back pain M54.59 Chronic left-sided low back pain with left-sided sciatica M54.42; G89.29 Back pain location: low back pain Back pain laterality: left Sciatica presence: with sciatica Sciatica laterality: sciatica of left side Primary hypertension I10 Hypertension type: primary hypertension Mixed hyperlipidemia E78.2 Hyperlipidemia type: mixed hyperlipidemia Sleep apnea, unspecified type G47.30 Sleep apnea type: unspecified type Anxiety and depression F41.9; F32.A Failed back surgical syndrome M96.1 Migraine with aura and without status migrainosus, not intractable G43.109 Status migrainosus presence: without status migrainosus Intractability: not intractable Gastroesophageal reflux disease, unspecified whether esophagitis present K21.9 Esophagitis presence: esophagitis presence not specified (2) Chronic back pain Back pain location: low back pain Back pain laterality: left Sciatica presence: with sciatica Sciatica laterality: sciatica of left side Qualified Code(s): M54.42 - Lumbago with sciatica, left side; G89.29 - Other chronic pain (3) Hypertension Hypertension type: primary hypertension Qualified Code(s): I10 - Essential (primary) hypertension (4) Hyperlipidemia Hyperlipidemia type: mixed hyperlipidemia Qualified Code(s): E78.2 - Mixed hyperlipidemia (5) Sleep apnea Sleep apnea type: unspecified type Qualified Code(s): G47.30 - Sleep apnea, unspecified (8) Migraine with aura Status migrainosus presence: without status migrainosus Intractability: not intractable Qualified Code(s): G43.109 - Migraine with aura, not intractable, without status migrainosus (9) Esophageal reflux Esophagitis presence: esophagitis presence not specified Qualified Code(s): K21.9 - Gastro-esophageal reflux disease without esophagitis
[2025-02-20 11:30] LABS: Hematocrit (blood only) 46.0 % (42.0-52.0); Hemoglobin 15.5 g/dl (14.0-18.0); Immature Granulocytes # (auto) 0.04 K/uL (0.01-0.20); Immature Granulocytes % (auto) 0.4 %; Mean Corpuscular Hemoglobin 28.9 pg (25.0-34.0); Mean Corpuscular Volume 85.7 fL (80.0-100.0); Platelet Count 168 K/uL (130-400); RDW Standard Deviation 39.0 fL (36.4-46.3); Red Blood Count 5.37 M/uL (4.70-6.10); White Blood Count 10.08 K/ul (4.8-10.8)
[2025-02-20 11:45] LABS: Anion Gap 6.0 (3-11); Blood Urea Nitrogen 25.0 mg/dl (6-23); Calcium 9.1 mg/dl (8.6-10.3); Carbon Dioxide 27.0 mmol/L (21-32); Chloride 102.0 mmol/L (98-107); Creatinine Clr Calc Pharmacy 91.0 ml/min; Glucose 124.0 mg/dl (70-99(Fasting)); Potassium 4.6 mmol/L (3.5-5.1); Sodium 135.0 mmol/L (136-145)
[2025-02-21 08:03] LABS: Hematocrit (blood only) 46.6 % (42.0-52.0); Hemoglobin 15.4 g/dl (14.0-18.0); Immature Granulocytes # (auto) 0.06 K/uL (0.01-0.20); Immature Granulocytes % (auto) 0.5 %; Mean Corpuscular Hemoglobin 28.9 pg (25.0-34.0); Mean Corpuscular Volume 87.4 fL (80.0-100.0); Platelet Count 179 K/uL (130-400); RDW Standard Deviation 41.6 fL (36.4-46.3); Red Blood Count 5.33 M/uL (4.70-6.10); White Blood Count 13.27 K/ul (4.8-10.8)
[2025-02-21 08:25] LABS: Anion Gap 5.0 (3-11); Blood Urea Nitrogen 23.0 mg/dl (6-23); Calcium 9.1 mg/dl (8.6-10.3); Carbon Dioxide 30.0 mmol/L (21-32); Chloride 102.0 mmol/L (98-107); Creatinine Clr Calc Pharmacy 93.2 ml/min; Glucose 114.0 mg/dl (70-99(Fasting)); Potassium 4.7 mmol/L (3.5-5.1); Sodium 137.0 mmol/L (136-145)
--- NOTE | 2025-02-21 09:50 | Hospitalist Progress Note ---
Date of Service February 21, 2025 Assessment & Plan (1) Intractable low back pain: (2) Chronic back pain: (3) Hypertension: (4) Hyperlipidemia: (5) Sleep apnea: (6) Anxiety and depression: (7) Failed back surgical syndrome: (8) Migraine with aura: (9) Esophageal reflux: Plan Acute intractable low back pain Chronic low back pain Lumbar stenosis - acute and severe exacerbation of his chronic low back pain. remains uncontrolled. Multiple surgeries, very complicated recent history. Multiple severe exacerbations in recent weeks, awaiting spinal stimulator implant likely in March - multimodal pain control, supportive cares, Valium 10 mg every 6 for spasm, add Decadron 10 mg every 24 and de-escalate as symptoms improve, oxycodone oral every 6 hours 10 mg, breakthrough with morphine 10 mg every 2 hours as needed, will add Toradol 10 mg x 1 use sparingly but he has tolerated this in combination with his cardiac meds in the past - history of sleep apnea, history of hypoxia and respiratory failure. High risk given multiple sedative medications, will admit to PCU for close respiratory monitoring - Escalating total dosing with GEOSPATIAL PROGRAM MANAGEMENT OFFICER pain/still reporting 101/pain - given significant chronic component, titrate to pierson-persaud scale rather than acute scale, will have staff document both. - consults to pain mgmt and ortho/spine given persistent exacerbation - High risk polypharmacy history with currently high risk regimen. consults as above. Hypertension - Blood pressures within normal range at this time - no intervention required at this time, closely monitor, losartan was discontinued recently secondary to hypotension Obstructive sleep apnea History of respiratory failure - he does not use CPAP at home, will continuously monitor with pulse ox. - He has used albuterol in the past, will continue - close monitoring for respiratory depression as above Coronary artery disease, history of NSTEMI - follows with cardiology, -He was transitoned to plavix 75mg daily in September, this was continued Anxiety Depression History of PTSD - continue Zoloft 100 mg, trazodone 150 mg at night Migraine - well-controlled at this time does follow with neurology, and reading the notes it seems as he had a atypical or complex migraine history initially thought to possibly be seizure. Well-controlled recently Prophylaxis - PPI plus Lovenox CODE STATUS - full code per his wishes, discussed with he and his son at the bedside at the time of admission Admission and Anticipated Discharge Date Admission Date: February 19, 2025 Subjective No significant improvement overnight, switched to the GEOSPATIAL PROGRAM MANAGEMENT OFFICER yesterday, still reporting poor control. Nursing notes reflect adeequate sleep and good overall function. No new events or other concerns, update by phone today. No BM yesterdays, no abd pain or bloated feelings Physical Exam Constitutional: NAD, slightly somnolent during exam Eyes: sclera clear Respiratory: Clear to auscultation Cardiovascular: Regular rate and rhythm no murmurs rubs or gallops Musculoskeletal: No edema Skin: No pallor no rash no discoloration Neurologic: Weekly symptoms return Results & Data Results & Data Vital Signs (Past 12 Hours) Vital Signs Temp Pulse Pulse Resp BP Pulse Ox O2 Del Method 02/21/25 07:45 36.3 C L 60 18 120/52 L 94 Room Air 02/20/25 23:18 55 L 02/20/25 22:40 36.3 C L 54 L 18 118/72 95 Room Air Laboratory Results 02/19/25 16:14 Aerobic Blood Culture - Preliminary Blood No growth in Aerobic bottle after 24 hours. Anaerobic Blood Culture - Preliminary No growth in Anaerobic bottle after 24 hours. 02/19/25 16:26 Aerobic Blood Culture - Preliminary Blood No growth in Aerobic bottle after 24 hours. Anaerobic Blood Culture - Preliminary No growth in Anaerobic bottle after 24 hours. 02/21/25 02/20/25 07:30 11:06 WBC 13.27 H 10.08 RBC 5.33 5.37 Hgb 15.4 15.5 Hct 46.6 46.0 MCV 87.4 85.7 MCH 28.9 28.9 MCHC 33.0 33.7 RDW Std Deviation 41.6 39.0 RDW Coeff of Kacey 13.2 12.7 Plt Count 179 168 MPV 8.4 L 8.5 L Immature Gran % (Auto) 0.5 0.4 Neut % (Auto) 81.1 79.3 Lymph % (Auto) 9.3 12.6 [place] % (Auto) 9.0 7.5 Eos % (Auto) 0.0 0.0 Baso % (Auto) 0.1 0.2 Neut # (Auto) 10.77 H 7.99 H Lymph # (Auto) 1.24 1.27 [place] # (Auto) 1.19 H 0.76 H Eos # (Auto) 0.00 0.00 Baso # (Auto) 0.01 0.02 Immature Gran # (Auto) 0.06 0.04 Sodium 137 135 L Potassium 4.7 4.6 Chloride 102 102 Carbon Dioxide 30 27 Anion Gap 5 6 BUN 23 25 H Creatinine 1.16 1.19 Est Cr Clr Drug Dosing 93.2 91.0 eGFR 74.85 72.59 BUN/Creatinine Ratio 19.8 21.0 H Glucose 114 H 124 H Calcium 9.1 9.1 PG Care Time/CCT Total # of Minutes Spent Total Time Spent with Patient: Total time spent is greater than 50% in coordination of care (as documented) at patient's floor/unit and/or counseling patient: Coding Level of Care Code 95970 SUB INP/OBS CARE MIN Diagnoses Intractable low back pain M54.59 Chronic left-sided low back pain with left-sided sciatica M54.42; G89.29 Back pain location: low back pain Back pain laterality: left Sciatica presence: with sciatica Sciatica laterality: sciatica of left side Primary hypertension I10 Hypertension type: primary hypertension Mixed hyperlipidemia E78.2 Hyperlipidemia type: mixed hyperlipidemia Sleep apnea, unspecified type G47.30 Sleep apnea type: unspecified type Anxiety and depression F41.9; F32.A Failed back surgical syndrome M96.1 Migraine with aura and without status migrainosus, not intractable G43.109 Status migrainosus presence: without status migrainosus Intractability: not intractable Gastroesophageal reflux disease, unspecified whether esophagitis present K21.9 Esophagitis presence: esophagitis presence not specified (2) Chronic back pain Back pain location: low back pain Back pain laterality: left Sciatica presence: with sciatica Sciatica laterality: sciatica of left side Qualified Code(s): M54.42 - Lumbago with sciatica, left side; G89.29 - Other chronic pain (3) Hypertension Hypertension type: primary hypertension Qualified Code(s): I10 - Essential (primary) hypertension (4) Hyperlipidemia Hyperlipidemia type: mixed hyperlipidemia Qualified Code(s): E78.2 - Mixed hyperlipidemia (5) Sleep apnea Sleep apnea type: unspecified type Qualified Code(s): G47.30 - Sleep apnea, unspecified (8) Migraine with aura Status migrainosus presence: without status migrainosus Intractability: not intractable Qualified Code(s): G43.109 - Migraine with aura, not intractable, without status migrainosus (9) Esophageal reflux Esophagitis presence: esophagitis presence not specified Qualified Code(s): K21.9 - Gastro-esophageal reflux disease without esophagitis
[2025-02-21] MEDS: KETOROLAC 30 MG/ML VIAL IV ONE (20:15)
[2025-02-21] MEDS: KETOROLAC TROMETHAMINE 15 MG/ML VIAL IV ONE (21:30)
[2025-02-21] MEDS: LIDOCAINE 5% 1 PATCH TD SCH (21:47)
--- NOTE | 2025-02-22 06:51 | Pain Management Consultation ---
Date of Consultation February 22, 2025 Assessment & Plan (1) Intractable low back pain: (2) Neuroforaminal stenosis of lumbar spine: (3) Postlaminectomy syndrome of lumbosacral region: (4) Lumbar radicular pain: Plan 1. Patient continues to experience sustained relief from bilateral L3-L4 transforaminal epidural steroid injection 10/09/2024. 2. Patient unable to tolerate gabapentin secondary to confusion, mood change, "brain fog". He had trialed pregabalin 50 mg p.o. twice daily and had improvement to his radicular symptoms. Recommend that this be reinstituted inpatient. We will send an outpatient prescription to be filled at his pharmacy and work on insurance approval in the outpatient office. 3. Continue with pain management with control of muscle spasm with diazepam as well as pain control with morphine sulfate IV as needed and convert to oral oxycodone as able. Would also recommend ketorolac (Toradol) 10 mg p.o. every 6 hours as needed for pain. 4. Follow-up outpatient with PCP for ongoing outpatient management of oxycodone 5. Patient is on chronic antiplatelet therapy with clopidogrel 75 mg p.o. daily. Should any intervention be needed, clopidogrel will need to be held. Thank you very much for including us in the care of this patient. Case discussed with Dr. Alejandro History of Present Illness Reason for Consultation: Intractable back pain Attending Physician: Richard Weiner MD History of Present Illness Attending: Dr. Alejandro Mr. Blackman is a 54-year-old male well-known to our service. Patient is also following with orthospine. He has multiple lumbar surgeries with anterior fusion from L4-S1 performed at [facility] in 2004. Patient has also un dergone fusion of C4-C7In [address] Mejía. Patient admitted 02/19/2025 with exacerbation of chronic low back pain. Updated MRI was obtained and shows stable postoperative changes from L4-S1 discectomy and fusion. There is no change in mild central canal stenosis at L2-L3, L3-L4. Patient previously underwent bilateral L3-L4 transforaminal epidural steroid injection 10/09/2024 which resulted in sustained relief of about 75%. Patient was then seen in consultation at the hospital as an inpatient 01/23/2025 and was scheduled for repeat transforaminal injections 02/15/2025. Patient canceled that appointment as he continued to have sustained relief from previous injection. It was recommended the patient do a trial of pregabalin (Lyrica) to help with his radicular symptoms which did help. He previously did use gabapentin which resulted in confusion and "brain fog". Other home medications to provide relief for the patient include acetaminophen, diazepam for muscle spasm, ketorolac, and oxycodone. Inpatient, patient is receiving dexamethasone 10 mg every 24 hours IV, diazepam, ketorolac, morphine sulfate 30 mg IV as needed, acetaminophen 1 g p.o. every 8 hours, lidocaine patch. Patient continues to experience sustained relief from his bilateral L3-L4 transforaminal epidural steroid injection 10/09/2024. He has no pain in this distribution area at all. Patient does report lumbosacral pain with radiation down his left leg to his foot which seems to be worsened over the last 1 to 2 weeks. He endorses increased weakness of his left lower extremity and has difficulty with toe raise and difficulty with walking. He is currently using a walker and can ambulate from the bed to the bathroom but no further. Patient characterizes pain as a sharp stabbing pain. It is aggravated prolonged standing, walking, prolonged sitting, repositioning. He reports that he gets some relief from muscle spasm using ketorolac and diazepam. Although these are prn medications, he reports he takes them scheduled. Patient also got some short-term relief from oxycodone 10 mg p.o. as prescribed by his primary care provider but only had a short supply and currently is not taking that at home now. Patient did indicate that he had improvement to his pain with pregabalin (Lyrica) but reports that insurance did not approve a refill. Patient unable to tolerate gabapentin as listed above. Patient currently rates his pain 9/10 at worst and 5/10 at best. Patient does follow with orthospine. They have been consulted and have recommended spinal cord stimulator trial which is scheduled for March. Lumbar spine MRI 02/20/2025 Previous intervention: Physical therapy, epidural steroid injection, fusion, medical management with opiates, muscle relaxants, anxiolytics, Lidoderm patch, steroids. Patient denies any bowel or bladder incontinence. No saddle anesthesia. No unusual bleeding or bruising. Patient is on antiplatelet therapy with clopidogrel 75 mg p.o. daily No other constitutional complaints Allergies Allergy/AdvReac Type Severity Reaction Status Date / Time hydromorphone Allergy Severe SHORTNESS Verified 02/07/25 10:07 OF BREATH Penicillins Allergy Severe ALLERGY TO Verified 02/07/25 10:07 [id number] doxycycline Allergy Intermediate BLISTERS/HI Verified 02/07/25 10:07 VES lamotrigine Allergy Intermediate tremors Verified 02/07/25 10:07 clindamycin AdvReac Intermediate NAUSEA Verified 02/07/25 10:07 eletriptan AdvReac Mild nausea/vomi Verified 02/07/25 10:07 ting gabapentin AdvReac Anaphylaxis Verified 02/07/25 10:07 Home Medications Medication Instructions Recorded Confirmed Type tadalafil 5 mg tablet 20 mg (4 x 5 mg) PO ONCE PRN 04/13/23 02/19/25 Rx sexual activity #30 tabs nitroglycerin 0.4 mg sublingual 0.4 mg sublingual Q5M PRN chest 09/07/23 02/19/25 Rx tablet (Nitrostat) pain #1 btl sertraline 100 mg tablet (Zoloft) 100 mg PO QAM #90 tabs 03/31/24 02/19/25 Rx trazodone 150 mg tablet 150 mg PO HS #90 tabs 03/31/24 02/19/25 Rx fenofibrate nanocrystallized 145 145 mg PO QAM 05/23/24 02/19/25 History mg tablet albuterol sulfate 90 mcg/actuation 2 puff inhalation Q6H PRN 08/21/24 02/19/25 Rx aerosol inhaler Shortness Of Breath Or Wheezing #18 grams levocetirizine 5 mg tablet (Xyzal) 0 mg PO PM 09/27/24 02/19/25 History atorvastatin 40 mg tablet 40 mg PO QAM #90 tabs 10/10/24 02/19/25 Rx clopidogrel 75 mg tablet 75 mg PO QAM #90 tabs 10/11/24 02/19/25 Rx benzonatate 200 mg capsule 200 mg PO TID PRN cough #30 caps 11/14/24 02/19/25 Rx montelukast 10 mg tablet 10 mg PO QPM #90 tabs 01/09/25 02/19/25 Rx pantoprazole 40 mg tablet,delayed 40 mg PO QAM #90 tabs 01/09/25 02/19/25 Rx release acetaminophen 500 mg tablet 1,000 mg (2 x 500 mg) PO Q8H #60 01/25/25 02/19/25 Rx (Tylenol Extra Strength) tabs oxycodone 10 mg tablet 10 mg PO Q6H PRN pain #7 tabs 01/25/25 02/19/25 Rx diazepam 10 mg tablet 10 mg PO Q6H PRN muscle spasm #10 02/07/25 02/19/25 Rx tabs ketorolac 10 mg tablet 10 mg PO Q6H PRN pain #20 tabs 02/07/25 02/19/25 Rx pregabalin 50 mg capsule (Lyrica) 50 mg PO BID #60 caps 02/07/25 02/19/25 Rx Patient History Medical History Hypoxia NSTEMI (non-ST elevated myocardial infarction) Viral pneumonia Chest pain Disc degeneration, lumbar Esophageal reflux Obstructive sleep apnea Migraine with aura Parainfluenza virus bronchitis 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 believed r/t the Froin's syndrome. treated at [facility]. HOSPITALIZED 2013 AND 2016 "BELIEVES RELATED TO GABAPENTIN NOT BROKEN DOWN" Surgical History EIC (epidermal inclusion cyst) (12/14/24) FINAL DIAGNOSIS In office procedure Dr. Vasquez Skin, right lower back, excision: - Epidermal inclusion cyst History of colonoscopy (~09/2021) Family history of reaction to anesthesia BROTHER>NAUSEA Cyst REMOVED FROM BACK S/P lumbar and lumbosacral fusion by anterior technique 2003 [place] teeth removed S/P cervical spinal fusion GOOD ROM History of esophagogastroduodenoscopy (EGD) Family History Grandfather (Maternal) Diabetes Mother FHx: skin cancer Sinus disorder Grandmother (Maternal) FHx: stomach cancer Brother Asthma Sinus disorder Father Cardiac disorder Lumbar disc disease Parkinson disease Aunt Diabetes Uncle Diabetes Grandmother Cancer Other Gallbladder disease Heart disease Hypertension Social History Smoking Status: Current some day smoker Tobacco Type: Cigars Cigarettes Per Day: 1-2 cigars weekly; Second Hand Exposure: No; Do You Dip or Chew Tobacco: No; Tobacco Cessation Education Requested by Patient: No Hx Alcohol Use: Yes Alcohol type: beer Alcohol Intake Frequency: 2-4 x/Month Hx Substance Use: No Preferred Language: Hebrew Communication Ability: Effective Visual Impairment: No Limitations Hearing Ability: Normal Education Instructor Required: No Beliefs That Will Affect Care: None marital status: Current Living Situation: Spouse Current Living Situation Comment: 1 story home with 2 steps to enter home current occupational status: employed 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 Memory appears grossly intact Skin: No evidence of edema, erythema or skin breakdown. No rashes, lesions, ulcers, or induration noted. Musculoskeletal: Head is normocephalic and atraumatic, gait unable to be assessed secondary to pain. Lumbar: Lordotic curve: Loss of lumbar Lordosis Range of motion is decreased in all planes secondary to pain Tenderness: Tender over the axial midline in the lumbosacral region Facet provocation: Positive on the left in the lumbosacral region. Negative on the right Straight leg raise: Positive bilaterally with inability to fully left left leg Strength: Strength is equal bilaterally with 3 out of 5 strength in all planes Sensation of lower extremities: Intact bilaterally Deep tendon reflexes: Rated at 2/4 in bilateral patellar tendons Myofascial spasm: No appreciable lumbar spasm. No discrete trigger points noted Greater trochanters: Nontender bilaterally Sacroiliac joints: Nontender bilaterally. Unable to perform Gaenslen's test, FADIR, KEYLA secondary to pain. Pathologic reflexes noted: None Neuro: No focal neurological deficits appreciated. Results (Pain Clinic) Diagnostic Review MRI: reports reviewed, images reviewed and findings discussed with patient MRI Findings: [place], [place] [phone] Magnetic Resonance Report Patient: PROMISE BLACKMAN Admit Date: 02/19/25 MR#: [id number] Address[address]: [address] Acct ID:[id number] Address2: Date: [address] Zip: [place] [address] Age: 54 Location: 2S Sex: M Room/Bed: [facility] Att Phy: Richard Weiner MD Diagnosis: INTRACTIBLE BACK PAIN Evelyn Phy: Ana Rosa Murguia Service Date: 02/20/25 Fam Phy: Interpreting Phy: Bradley Messer MD Admit Phy: Richard Weiner MD Ordering Phy: Richard Weiner MD cc: ~ MRI OF THE LUMBAR SPINE WITHOUT CONTRAST CLINICAL HISTORY: Chronic pain with severe persistent exacerbation. COMPARISON STUDY: Lumbar spine MRI January 22, [address] February 19, 2025. TECHNIQUE: Utilizing a 3 Trudi magnet and dedicated coil, multiplanar, multiecho imaging of the lumbar spine was performed without IV contrast. [place] llic artifact reduction technique was utilized. FINDINGS: For purposes of numbering on this exam, the L5-S1 disc space is assigned to axial image 18 of 25 of the lower axial sequences. There are postoperative findings consistent with L4-L5 and L5-S1 discectomy fusion. Postoperative appearance is unchanged since MRI of January 22, 2025. There are no lumbar spine fractures. A L1 vertebral body hemangioma is unchanged. No suspicious marrow replacement is present. Is no intracanalicular mass or fluid collection. The conus terminates at the mid L1 level. Paravertebral soft tissues are unremarkabl e. L1-2: The central canal and neural foramen are patent. L2-3: There is a mild disc bulge with small central annular tear. Mild central canal stenosis is unchanged since MRI of January 22, 2025. There is desiccation of the disc. The neural foramen are patent. L3-4: There is moderate facet arthrosis with minimal disc bulge. There is mild ligamentous hypertrophy. The findings result in mild central canal stenosis with patent AP diameter of the canal is 7.1 mm. This is unchanged. The neural foramen are patent. L4-5: No recurrent central canal stenosis is identified status post decompression. The neural foramen are patent. L5-S1: No recurrent central canal stenosis is present. There is no significant neural foraminal stenosis. IMPRESSION: 1. Stable postoperative findings following L4-S1 discectomy and fusion. 2. No change in mild central canal stenosis at L2-L3 and L3-L4. 3. No significant neural foraminal stenosis. 3. No lumbar spine fractures. ACT 112: Negative or not required by law. Electronically signed by: Bradley Messer M.D. 02/20/2025 9:46 AM Previous Records Review Previous Records: personally reviewed by
--- NOTE | 2025-02-22 08:48 | Consultation ---
Date of Consultation February 22, 2025 Assessment & Plan (1) Intractable low back pain: I have reviewed updated lumbar MRI and compared it to January 22, 2025 lumbar MRI as well as lumbar CT. There are no new changes and no acute findings. Nothing to offer him from a surgical standpoint during this hospital stay. We will proceed with moving forward with his spinal cord stim trial as an outpatient. Will lean on the pain management team for guidance for better pain control during this hospital stay. Will sign off History of Present Illness Attending Physician: Richard Weiner MD History of Present Illness Russel is a 54-year-old gentleman well-known to our practice. He is undergone multiple lumbar procedures by Dr. Mejía. He was admitted on February 19 with acute on chronic pain involving his back and left leg. He was admitted 4 weeks ago which we are also consulted on for similar episode. 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 Pain management has been consulted for guidance regarding medication management. He her currently is looking forward to proceeding with a spinal cord stim trial. This is not yet scheduled. Allergies Allergy/AdvReac Type Severity Reaction Status Date / Time hydromorphone Allergy Severe SHORTNESS Verified 02/07/25 10:07 OF BREATH Penicillins Allergy Severe ALLERGY TO Verified 02/07/25 10:07 [id number] doxycycline Allergy Intermediate BLISTERS/HI Verified 02/07/25 10:07 VES lamotrigine Allergy Intermediate tremors Verified 02/07/25 10:07 clindamycin AdvReac Intermediate NAUSEA Verified 02/07/25 10:07 eletriptan AdvReac Mild nausea/vomi Verified 02/07/25 10:07 ting gabapentin AdvReac Anaphylaxis Verified 02/07/25 10:07 Home Medications Medication Instructions Recorded Confirmed Type tadalafil 5 mg tablet 20 mg (4 x 5 mg) PO ONCE PRN 04/13/23 02/19/25 Rx sexual activity #30 tabs nitroglycerin 0.4 mg sublingual 0.4 mg sublingual Q5M PRN chest 09/07/23 02/19/25 Rx tablet (Nitrostat) pain #1 btl sertraline 100 mg tablet (Zoloft) 100 mg PO QAM #90 tabs 03/31/24 02/19/25 Rx trazodone 150 mg tablet 150 mg PO HS #90 tabs 03/31/24 02/19/25 Rx fenofibrate nanocrystallized 145 145 mg PO QAM 05/23/24 02/19/25 History mg tablet albuterol sulfate 90 mcg/actuation 2 puff inhalation Q6H PRN 08/21/24 02/19/25 Rx aerosol inhaler Shortness Of Breath Or Wheezing #18 grams levocetirizine 5 mg tablet (Xyzal) 0 mg PO PM 09/27/24 02/19/25 History atorvastatin 40 mg tablet 40 mg PO QAM #90 tabs 10/10/24 02/19/25 Rx clopidogrel 75 mg tablet 75 mg PO QAM #90 tabs 10/11/24 02/19/25 Rx benzonatate 200 mg capsule 200 mg PO TID PRN cough #30 caps 11/14/24 02/19/25 Rx montelukast 10 mg tablet 10 mg PO QPM #90 tabs 01/09/25 02/19/25 Rx pantoprazole 40 mg tablet,delayed 40 mg PO QAM #90 tabs 01/09/25 02/19/25 Rx release acetaminophen 500 mg tablet 1,000 mg (2 x 500 mg) PO Q8H #60 01/25/25 02/19/25 Rx (Tylenol Extra Strength) tabs oxycodone 10 mg tablet 10 mg PO Q6H PRN pain #7 tabs 01/25/25 02/19/25 Rx diazepam 10 mg tablet 10 mg PO Q6H PRN muscle spasm #10 02/07/25 02/19/25 Rx tabs ketorolac 10 mg tablet 10 mg PO Q6H PRN pain #20 tabs 02/07/25 02/19/25 Rx pregabalin 50 mg capsule (Lyrica) 50 mg PO BID #60 caps 02/22/25 Rx Patient History Medical History Hypoxia NSTEMI (non-ST elevated myocardial infarction) Viral pneumonia Chest pain Disc degeneration, lumbar Esophageal reflux Obstructive sleep apnea Migraine with aura Parainfluenza virus bronchitis 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 believed r/t the Froin's syndrome. treated at [facility]. HOSPITALIZED 2014 AND 2016 "BELIEVES RELATED TO GABAPENTIN NOT BROKEN DOWN" Surgical History EIC (epidermal inclusion cyst) (12/14/24) FINAL DIAGNOSIS In office procedure Dr. Christina Andrews, right lower back, excision: - Epidermal inclusion cyst History of colonoscopy (~09/2021) Family history of reaction to anesthesia BROTHER>NAUSEA Cyst REMOVED FROM BACK S/P lumbar and lumbosacral fusion by anterior technique 2003 [place] teeth removed S/P cervical spinal fusion GOOD ROM History of esophagogastroduodenoscopy (EGD) Family History Grandfather (Maternal) Diabetes Mother FHx: skin cancer Sinus disorder Grandmother (Maternal) FHx: stomach cancer Brother Asthma Sinus disorder Father Cardiac disorder Lumbar disc disease Parkinson disease Aunt Diabetes Uncle Diabetes Grandmother Cancer Other Gallbladder disease Heart disease Hypertension Social History Smoking Status: Current some day smoker Tobacco Type: Cigars Cigarettes Per Day: 1-2 cigars weekly; Second Hand Exposure: No; Do You Dip or Chew Tobacco: No; Tobacco Cessation Education Requested by Patient: No Hx Alcohol Use: Yes Alcohol type: beer Alcohol Intake Frequency: 2-4 x/Month Hx Substance Use: No Preferred Language: Wallisian Communication Ability: Effective Visual Impairment: No Limitations Hearing Ability: Normal Blooming Mill Supervisor Required: No Beliefs That Will Affect Care: None marital status: Current Living Situation: Spouse Current Living Situation Comment: 1 story home with 2 steps to enter home current occupational status: employed 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 How many Children do You have: 1 Other Information That Helps Us Care for You: No Feels Safe at Home: Yes Safety Concerns: Feels Safe At This Time Childhood Exposure to Second-Hand Smoke: No Diet: regular during the past year weight has: decreased > 10 lbs Dental Care, Regularly: Yes Physical Activity Frequency: Daily Seatbelt Use: always Sunscreen Use: No Assistive Devices: Cane and Walker Review of Systems Review of Systems: All systems reviewed & are unremarkable except as noted in HPI & below Physical Exam Physical Exam: Patient is seen in conjunction with his He is sitting on the edge of the bed eating breakfast in no acute distress Alert and oriented x 3 Lumbar incisions well-healed Strength intact bilateral lower extremities Results & Data Vital Signs (Past 12 Hours) Vital Signs Temp Pulse Pulse Resp BP Pulse Ox O2 Del Method 02/22/25 07:58 36.5 C 80 20 139/68 93 Room Air 02/22/25 02:20 36.4 C L 71 18 115/73 91 Room Air 02/22/25 01:14 63 02/21/25 22:46 36.4 C L 62 18 142/81 H 94 Room Air Diagnostic Findings [place], [place] [phone] Magnetic Resonance Report Patient: RUSSEL BLACKMAN Admit Date: 02/19/25 MR#: [id number] Address1: [address] [place] [address] Acct ID:[id number] Address2: Date: 1970 [facility] Zip: [place] [address] Age: 54 Location: Sex: M Room/Bed: S240-2 Att Phy: Richard Weiner MD Diagnosis: INTRACTIBLE BACK PAIN Evelyn Phy: Ana Rosa Murguia Service Date: 02/20/25 Fam Phy: Interpreting Phy: Bradley Messer MDAdmit Phy: Richard Weiner MD Ordering Phy: Richard Weiner MD cc: ~ MRI OF THE LUMBAR SPINE WITHOUT CONTRAST CLINICAL HISTORY: Chronic pain with severe persistent exacerbation. COMPARISON STUDY: Lumbar spine MRI January 22, [address] February 19, 2025. TECHNIQUE: Utilizing a 3 Trudi magnet and dedicated coil, multiplanar, multiecho imaging of the lumbar spine was performed without IV contrast. Metallic artifact reduction technique was utilized. FINDINGS: For purposes of numbering on this exam, the L5-S1 disc space is assigned to axial image 18 of 25 of the lower axial sequences. There are postoperative findings consistent with L4-L5 and L5-S1 discectomy fusion. Postoperative appearance is unchanged since MRI of January 22, 2025. There are no lumbar spine fractures. A L1 vertebral body hemangioma is unchanged. No suspicious marrow replacement is present. Is no intracanalicular mass or fluid collection. The conus terminates at the mid L1 level. Paravertebral soft tissues are unremarkable. L1-2: The central canal and neural foramen are patent. L2-3: There is a mild disc bulge with small central annular tear. Mild central canal stenosis is unchanged since MRI of January 22, 2025. There is desiccation of the disc. The neural foramen are patent. L3-4: There is moderate facet arthrosis with minimal disc bulge. There is mild ligamentous hypertrophy. The findings result in mild central canal stenosis with patent AP diameter of the canal is 7.1 mm. This is unchanged. The neural foramen are patent. L4-5: No recurrent central canal stenosis is identified status post decompression. The neural foramen are patent. L5-S1: No recurrent central canal stenosis is present. There is no significant neural foraminal stenosis. IMPRESSION: 1. Stable postoperative findings following L4-S1 discectomy and fusion. 2. No change in mild central canal stenosis at L2-L3 and L3-L4. 3. No significant neural foraminal stenosis. 3. No lumbar spine fractures. ACT 112: Negative or not required by law. Electronically signed by: Bradley Messer M.D. 02/20/2025 9:46 AM Dictated: 02/20/25937 Transcribed: 02/20/25937 [facility], [place] [phone] CT Scan Report Patient: RUSSEL BLACKMAN Admit Date: 02/19/25 MR#: [id number] Address1: [address] [place] [address] Acct ID:[id number] Address2: Date: 1970 [facility] Zip: [place] [address] Age: 54 Location: ED Sex: M Room/Bed: Att Phy: Diagnosis: FALL Evelyn Phy: Ana Rosa Murguia Service Date: 02/19/25 [facility] Phy: Interpreting Phy: Bradley Messer MDAdmit Phy: Ordering Phy: Isaias Mccormick PA-C cc: ~ CT lumbar spine wo con CLINICAL HISTORY: Fall, back pain COMPARISON STUDY: Lumbar spine CT and lumbar spine MRI January 22, 2025. TECHNIQUE: Axial images of the lumbar spine were obtained without IV contrast. Sagittal and coronal reformats were viewed. A dose lowering technique was utilized adhering to the principles of ALARA. FINDINGS: For purposes of numbering on this exam, the L5-S1 disc space is assigned to axial image 335 of 409. There are postoperative findings following L4-L5 and L5-S1 discectomy and fusion. Hardware is intact. Alignment of the lumbar spine is anatomic. Vertebral body heights are maintained. There are no fractures. There are no suspicious osseous lesions. Central canal and neural foramen are suboptimally assessed given CT technique. Paravertebral soft tissues are unremarkable by CT. IMPRESSION: 1. No acute lumbar spine fracture or subluxation. 2. Stable findings following L4-S1 discectomy and fusion. ACT 112: Negative or not required by law. Electronically signed by: Bradley Messer M.D. 02/19/2025 12:37 PM Dictated: 02/19/25 1233 Transcribed: 02/19/25 1233
[2025-02-22] MEDS: KETOROLAC TROMETHAMINE 15 MG/ML VIAL IV SCH (11:19)
[2025-02-22] MEDS: PREGABALIN 75 MG CAP PO SCH (11:20)
[2025-02-22] MEDS: dexAMETHasone 4 MG in SYRINGE 0 ML IV SCH (11:29)
--- NOTE | 2025-02-22 12:28 | Hospitalist Progress Note ---
Date of Service February 22, 2025 Assessment & Plan (1) Intractable low back pain: (2) Chronic back pain: (3) Hypertension: (4) Hyperlipidemia: (5) Sleep apnea: (6) Anxiety and depression: (7) Failed back surgical syndrome: (8) Migraine with aura: (9) Esophageal reflux: Plan Acute intractable low back pain Chronic low back pain Lumbar stenosis - acute and severe exacerbation of his chronic low back pain. remains uncontrolled. Multiple surgeries, very complicated recent history. Multiple severe exacerbations in recent weeks, awaiting spinal stimulator implant likely in March - multimodal pain control, supportive cares, Valium 10 mg every 6 for spasm, add Decadron 10 mg every 24 and de-escalate as symptoms improve, oxycodone oral every 6 hours 10 mg, breakthrough with morphine 10 mg every 2 hours as needed, will add Toradol 10 mg x 1 use sparingly but he has tolerated this in combination with his cardiac meds in the past - history of sleep apnea, history of hypoxia and respiratory failure. 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 - consults to pain mgmt and ortho/spine given persistent exacerbation, see consults, no surgical intervention at this time - High risk polypharmacy history with currently high risk regimen. consults as above. - Decrease underlying pain control is actually reasonable feels anxiety/acute Due to his impacted and likely dominating his overall symptomatology at this time. Discussed regimen with patient and , will add Lyrica, scheduled toradol, decrease Morphine as he is quite somnolent and feeling more 'high' than pain relief. Taper decadron, continue diazepam - add palliative care consult, complex and high stress comorbidities, increasing utilization. - Ideally we could coordinate with neuropsyche and more closely integrate with PTSD therapy, will consult [facility] liason to see if they can facilitate resources. Hypertension - Blood pressures within normal range at this time - no intervention required at this time, closely monitor, losartan was discontinued recently secondary to hypotension Obstructive sleep apnea History of respiratory failure - he does not use CPAP at home, will continuously monitor with pulse ox. - He has used albuterol in the past, will continue - close monitoring for respiratory depression as above Coronary artery disease, history of NSTEMI - follows with cardiology, -He was transitoned to plavix 75mg daily in September, this was continued Anxiety Depression History of PTSD - continue Zoloft 100 mg, trazodone 150 mg at night - See Section 1 above: This is signficantly impacting his overall care and likely limiting the response to current therapy - Ideally we could coordinate with neuropsyche and more closely integrate with PTSD therapy, will consult [facility] liason to see if they can facilitate resources. Migraine - well-controlled at this time does follow with neurology, and reading the notes it seems as he had a atypical or complex migraine history initially thought to possibly be seizure. Well-controlled recently Prophylaxis - PPI plus Lovenox CODE STATUS - full code per his wishes, discussed with he and his son at the bedside at the time of admission Admission and Anticipated Discharge Date Admission Date: February 19, 2025 Subjective Quite significant pain and PTSD type symptoms starting yesterday afternoon. His is here) with months of symptoms referral. He tends to get very perseverative on these medications what of the pump for morphine is working. Almost hypervigilant. Given this he experiences no relief even when the pain pump is working, as such she has used quite a bit of morphine. Discussed with the patient and his at length today complicating factor of PTSD and in the setting of acute and chronic pain. Longstanding history of PTSD and has had seen neuropsychology for CBT therapy as well regular counseling although he has not bounced over several weeks. We discussed different pain medicine regimens, the organic and psychosomatic nature of pain. Slightly better this AM but he is still experiencing increased anxiety. Physical Exam Constitutional: NAD, slightly somnolent during exam Eyes: sclera clear Respiratory: Clear to auscultation Cardiovascular: Regular rate and rhythm no murmurs rubs or gallops Musculoskeletal: No edema Skin: No pallor no rash no discoloration Neurologic: Weekly symptoms return Results & Data Results & Data Vital Signs (Past 12 Hours) Vital Signs Temp Pulse Pulse Resp BP Pulse Ox O2 Del Method 02/22/25 11:00 36.6 C 79 18 144/70 H 97 Room Air 02/22/25 07:58 36.5 C 80 20 139/68 93 Room Air 02/22/25 02:20 36.4 C L 71 18 115/73 91 Room Air 02/22/25 01:14 63 Laboratory Results 02/19/25 16:14 Aerobic Blood Culture - Preliminary Blood No growth in Aerobic bottle after 48 hours. Anaerobic Blood Culture - Preliminary No growth in Anaerobic bottle after 48 hours. 02/19/25 16:26 Aerobic Blood Culture - Preliminary Blood No growth in Aerobic bottle after 48 hours. Anaerobic Blood Culture - Preliminary No growth in Anaerobic bottle after 48 hours. PG Care Time/CCT Total # of Minutes Spent Total Time Spent: 65 (minutes) Total Time Spent with Patient: Total time spent is greater than 50% in coordination of care (as documented) at patient's floor/unit and/or counseling patient: Coding Level of Care Code 81603 SUB INP/OBS CARE 350MIN Diagnoses Intractable low back pain M54.59 Chronic left-sided low back pain with left-sided sciatica M54.42; G89.29 Back pain location: low back pain Back pain laterality: left Sciatica presence: with sciatica Sciatica laterality: sciatica of left side Primary hypertension I10 Hypertension type: primary hypertension Mixed hyperlipidemia E78.2 Hyperlipidemia type: mixed hyperlipidemia Sleep apnea, unspecified type G47.30 Sleep apnea type: unspecified type Anxiety and depression F41.9; F32.A Failed back surgical syndrome M96.1 Migraine with aura and without status migrainosus, not intractable G43.109 Status migrainosus presence: without status migrainosus Intractability: not intractable Gastroesophageal reflux disease, unspecified whether esophagitis present K21.9 Esophagitis presence: esophagitis presence not specified (2) Chronic back pain Back pain location: low back pain Back pain laterality: left Sciatica presence: with sciatica Sciatica laterality: sciatica of left side Qualified Code(s): M54.42 - Lumbago with sciatica, left side; G89.29 - Other chronic pain (3) Hypertension Hypertension type: primary hypertension Qualified Code(s): I10 - Essential (primary) hypertension (4) Hyperlipidemia Hyperlipidemia type: mixed hyperlipidemia Qualified Code(s): E78.2 - Mixed hyperlipidemia (5) Sleep apnea Sleep apnea type: unspecified type Qualified Code(s): G47.30 - Sleep apnea, unspecified (8) Migraine with aura Status migrainosus presence: without status migrainosus Intractability: not intractable Qualified Code(s): G43.109 - Migraine with aura, not intractable, without status migrainosus (9) Esophageal reflux Esophagitis presence: esophagitis presence not specified Qualified Code(s): K21.9 - Gastro-esophageal reflux disease without esophagitis
[2025-02-22] MEDS: MAGNESIUM HYDROXIDE SUSP 30 ML UDC PO PRN (18:30)
[2025-02-22] MEDS: REMOVE LIDODERM PATCH SCH (20:37)
--- NOTE | 2025-02-22 23:53 | Palliative Care Consultation ---
Date of Consultation February 22, 2025 Assessment & Plan (1) Failed back surgical syndrome: severe pain presently on MS MARINE PIPEFITTER Will see how he does on this and reassess tomorrow, will need to convert to oral equivalent and transition MS contin + stop continuous rate, then use only MARINE PIPEFITTER and if pain remains well controlled?WAL in 24-48hr, move to add in MSIR and stop MARINE PIPEFITTER. Mr Lazcano accepted the offer for a palliative massage intervention, which was completed with good relief. We discussed the importance of using a multimodal approach to chronic back pain mgt which will need to include PT, reg exercise, weight loss and ongoing therapies such as massage. He shares that his mail processing machine operator suggested a GLP1 therapy and I encouraged him to follow up with that provider to help get that process started for him as I suspect it may require prior auth. (2) Therapeutic opioid-induced constipation (OIC): MOM added as this has been what worked best for him (3) Obstructive sleep apnea: Uncontrolled States he does not like the face mask he was given and it triggers his PTSD he has never tried anything like a nasal wisp or nasal pillows. He will need to go to [employer] to try on the various masks to see if these could be an option. In the absence of this, would suggest noc ox to see if he can be qualified for oxygen w/sleep - he is able to tolerate nasal cannula (4) Postlaminectomy syndrome of lumbosacral region: (5) Back pain: (6) Anxiety and depression: (7) Palliative care by specialist: Introduced Palliative Medicine and explained our role in patient's care. Patient and/or family were receptive to palliative services for goals of care discussions. Reviewed we are different from hospice, a home health nurse visiting service. I reviewed with Mr and Mrs Lazcano I am not a chronic pain provider and my area of focus is on symptom mgt for patients with very severe or life threatening/life limiting illness. However given his severity and complexity along with plans for surgery next month, I will follow him past this admission in [facility] clinic to help bridge his pain mgt through to surgery. Plan As above. Thank you for allowing us to participate in the ongoing care of this patient. Please page with any additional concerns. Alfredito Sun DNP Director, Palliative Medicine History of Present Illness Reason for Consultation: pain mgt Attending Physician: Richard Weiner MD History of Present Illness Russel is a 54yo male seen bedside together with his , along with palliative oncology LMT student Yudy and [employer] nursing home social worker Farzana. Russel has very severe back pain. He is s/p fall onto grass while ambulating from his home to this workshop/business which is on the same property. He has failed back syndrome with hx 2 laminectomies, 3 fusions and in general failed back syndrome. He has uncontrolled OS. States he cannot tolerate the FFM they gave him, it adds to his PTSD. he is ok with nasal cannula but no one ever tried nasal wisp or nasal pillows. he is open to trying something less triggering than FFM. he is very sensitive to opioids and has a hypersensitivity to Dilaudid after several doses with acute resp failure which he describes to me as "anaphylaxis." notes at home their pain regimen is tylenol or advil He anticipates a spinal stimulator to be placed in March sometime. He is followed by Dr Mejía. He admits to [facility], reports historically, MOM works best for him but he has not been getting this med He has an "ok" appetite BUE strength is good but BLE is weaker and he feels the weakness in legs before they give out, which is how he falls. 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 He has customized his workspace to accommodate his back pain with higher work tables and adjustable heights. Allergies Allergy/AdvReac Type Severity Reaction Status Date / Time hydromorphone Allergy Severe SHORTNESS Verified 02/07/25 10:07 OF BREATH Penicillins Allergy Severe ALLERGY TO Verified 02/07/25 10:07 [id number] doxycycline Allergy Intermediate BLISTERS/HI Verified 02/07/25 10:07 VES lamotrigine Allergy Intermediate tremors Verified 02/07/25 10:07 clindamycin AdvReac Intermediate NAUSEA Verified 02/07/25 10:07 eletriptan AdvReac Mild nausea/vomi Verified 02/07/25 10:07 ting gabapentin AdvReac Anaphylaxis Verified 02/07/25 10:07 Home Medications Medication Instructions Recorded Confirmed Type tadalafil 5 mg tablet 20 mg (4 x 5 mg) PO ONCE PRN 04/13/23 02/19/25 Rx sexual activity #30 tabs nitroglycerin 0.4 mg sublingual 0.4 mg sublingual Q5M PRN chest 09/07/23 02/19/25 Rx tablet (Nitrostat) pain #1 btl sertraline 100 mg tablet (Zoloft) 100 mg PO QAM #90 tabs 03/31/24 02/19/25 Rx trazodone 150 mg tablet 150 mg PO HS #90 tabs 03/31/24 02/19/25 Rx fenofibrate nanocrystallized 145 145 mg PO QAM 05/23/24 02/19/25 History mg tablet albuterol sulfate 90 mcg/actuation 2 puff inhalation Q6H PRN 08/21/24 02/19/25 Rx aerosol inhaler Shortness Of Breath Or Wheezing #18 grams levocetirizine 5 mg tablet (Xyzal) 0 mg PO PM 09/27/24 02/19/25 History atorvastatin 40 mg tablet 40 mg PO QAM #90 tabs 10/10/24 02/19/25 Rx clopidogrel 75 mg tablet 75 mg PO QAM #90 tabs 10/11/24 02/19/25 Rx benzonatate 200 mg capsule 200 mg PO TID PRN cough #30 caps 11/14/24 02/19/25 Rx montelukast 10 mg tablet 10 mg PO QPM #90 tabs 01/09/25 02/19/25 Rx pantoprazole 40 mg tablet,delayed 40 mg PO QAM #90 tabs 01/09/25 02/19/25 Rx release acetaminophen 500 mg tablet 1,000 mg (2 x 500 mg) PO Q8H #60 01/25/25 02/19/25 Rx (Tylenol Extra Strength) tabs oxycodone 10 mg tablet 10 mg PO Q6H PRN pain #7 tabs 01/25/25 02/19/25 Rx diazepam 10 mg tablet 10 mg PO Q6H PRN muscle spasm #10 02/07/25 02/19/25 Rx tabs ketorolac 10 mg tablet 10 mg PO Q6H PRN pain #20 tabs 02/07/25 02/19/25 Rx pregabalin 50 mg capsule (Lyrica) 50 mg PO BID #60 caps 02/22/25 Rx Patient History Medical History Hypoxia NSTEMI (non-ST elevated myocardial infarction) Viral pneumonia Chest pain Disc degeneration, lumbar Esophageal reflux Obstructive sleep apnea Migraine with aura Parainfluenza virus bronchitis 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 believed r/t the Froin's syndrome. treated at [facility] ER. HOSPITALIZED 2013 AND 2015 "BELIEVES RELATED TO GABAPENTIN NOT BROKEN DOWN" Surgical History EIC (epidermal inclusion cyst) (12/14/24) FINAL DIAGNOSIS In office procedure Dr. Vasquez Skin, right lower back, excision: - Epidermal inclusion cyst History of colonoscopy (~09/2021) Family history of reaction to anesthesia BROTHER>NAUSEA Cyst REMOVED FROM BACK S/P lumbar and lumbosacral fusion by anterior technique 2003 Constantia teeth removed S/P cervical spinal fusion GOOD ROM History of esophagogastroduodenoscopy (EGD) Family History Grandfather (Maternal) Diabetes Mother FHx: skin cancer Sinus disorder Grandmother (Maternal) FHx: stomach cancer Brother Asthma Sinus disorder Father Cardiac disorder Lumbar disc disease Parkinson disease Aunt Diabetes Uncle Diabetes Grandmother Cancer Other Gallbladder disease Heart disease Hypertension Social History Smoking Status: Current some day smoker Tobacco Type: Cigars Cigarettes Per Day: 1-2 cigars weekly; Second Hand Exposure: No; Do You Dip or Chew Tobacco: No; Tobacco Cessation Education Requested by Patient: No Hx Alcohol Use: Yes Alcohol type: beer Alcohol Intake Frequency: 2-4 x/Month Hx Substance Use: No Preferred Language: Belgian Communication Ability: Effective Visual Impairment: No Limitations Hearing Ability: Normal Cook Soup Required: No Beliefs That Will Affect Care: None marital status: Current Living Situation: Spouse Current Living Situation Comment: 1 story home with 2 steps to enter home current occupational status: employed 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[employer] How many Children do You have: 1 Other Information That Helps Us Care for You: No Feels Safe at Home: Yes Safety Concerns: Feels Safe At This Time Childhood Exposure to Second-Hand Smoke: No Diet: regular during the past year weight has: decreased > 10 lbs Dental Care, Regularly: Yes Physical Activity Frequency: Daily Seatbelt Use: always Sunscreen Use: No Assistive Devices: Cane and Walker Review of Systems Review of Systems: All systems reviewed & are unremarkable except as noted in Subjective Physical Exam Constitutional: + ill appearing, + physical limitations, cooperative and + in distress Eyes: PERRL, conjunctivae normal, anicteric sclerae ENMT: Mouth: + dry oral mucous membranes, + poor dentition and + chipped teeth Neck: normal visual inspection, trachea midline, + thick neck and + limited neck extension no stridor no thyromegaly Respiratory: normal respiratory effort, lungs clear to auscultation Cardiovascular: Rate/Rhythm: regular rate and regular rhythm Gastrointestinal (Abdomen): Inspection/Auscultation: abdomen normal to inspection, normal bowel sounds and + significant pannus Percussio n/Palpation: + tympanic to percussion (no guarding) Musculoskeletal: gen weakness, BUE is bryon than BLE Skin: pale, warm Neurologic: AAOX3 Results & Data Vital Signs (Past 12 Hours) Vital Signs Temp Pulse Pulse Pulse Resp BP Pulse Ox 02/22/25 22:54 59 L 02/22/25 20:00 02/22/25 19:00 36.7 C 88 18 120/60 97 02/22/25 16:00 36.6 C 80 16 135/68 96 02/22/25 13:47 81 Pulse Ox O2 Del Method O2 Del Method O2 Flow Rate 02/22/25 22:54 97 Room Air 02/22/25 20:00 Nasal Cannula 2 02/22/25 19:00 Room Air 02/22/25 16:00 Room Air 02/22/25 13:47 Laboratory Results 02/21/25 02/20/25 02/19/25 Range/Units 07:30 11:06 16:14 WBC 13.27 H 10.08 (4.8-10.8) K/ul RBC 5.33 5.37 (4.70-6.10) M/uL Hgb 15.4 15.5 (14.0-18.0) g/dl Hct 46.6 46.0 (42.0-52.0) % MCV 87.4 85.7 (80.0-100.0) fL MCH 28.9 28.9 (25.0-34.0) pg MCHC 33.0 33.7 (32.0-36.0) g/dL RDW Std Deviation 41.6 39.0 (36.4-46.3) fL RDW Coeff of Kacey 13.2 12.7 (11.5-14.5) % Plt Count 179 168 (130-400) K/uL MPV 8.4 L 8.5 L (9.4-12.4) fL Immature Gran % (Auto) 0.5 0.4 % Neut % (Auto) 81.1 79.3 % Lymph % (Auto) 9.3 12.6 % Harlan % (Auto) 9.0 7.5 % Eos % (Auto) 0.0 0.0 % Baso % (Auto) 0.1 0.2 % Neut # (Auto) 10.77 H 7.99 H (1.40-6.50) K/uL Lymph # (Auto) 1.24 1.27 (1.20-3.40) K/uL Harlan # (Auto) 1.19 H 0.76 H (0.11-0.59) K/uL Eos # (Auto) 0.00 0.00 (0.00-0.50) K/uL Baso # (Auto) 0.01 0.02 (0.00-0.20) K/uL Immature Gran # (Auto) 0.06 0.04 (0.01-0.20) K/uL PT (9.0-12.0) Seconds INR (0.9-1.1) APTT (21-31) Seconds PTT Ratio Sodium 137 135 L 139 (136-145) mmol/L Potassium 4.7 4.6 4.0 (3.5-5.1) mmol/L Chloride 102 102 105 (98-107) mmol/L Carbon Dioxide 30 27 28 (21-32) mmol/L Anion Gap 5 6 6 (3-11) BUN 23 25 H 25 H (6-23) mg/dl Creatinine 1.16 1.19 1.04 (0.6-1.4) mg/dl Est Cr Clr Drug Dosing 93.2 91.0 106.4 ml/min eGFR 74.85 72.59 85.33 BUN/Creatinine Ratio 19.8 21.0 H 24.0 H (10-20) Glucose 114 H 124 H 85 (70-99(Fasting)) mg/dl Lactate 0.8 (0.4-2.0) mmol/L Calcium 9.1 9.1 9.0 (8.6-10.3) mg/dl Magnesium 2.1 (1.7-2.4) mg/dl Total Bilirubin 0.5 (0.2-1.0) mg/dl Direct Bilirubin 0.1 (0-0.2) mg/dl AST 15 (13-39) U/L ALT 23 (7-52) U/L Alkaline Phosphatase 47 (34-104) U/L Troponin I High Sens 4.0 (0-20) pg/ml Total Protein 7.1 (6.0-8.3) gm/dl Albumin 4.0 (3.4-5.0) gm/dl Globulin (2.5-4.0) gm/dl Albumin/Globulin Ratio (0.9-2) Procalcitonin (0-0.5) ng/ml Urine Color Urine Appearance (Clear) Urine pH (4.5-7.5) Ur Specific [place] (1.000-1.030) Urine Protein (Negative) Urine Glucose (UA) (Negative) Urine Ketones (Negative) Urine Blood (Negative) Urine Nitrite (Negative) Urine Bilirubin (Negative) Urine Urobilinogen (Negative) Ur Leukocyte Esterase (Negative) Urine Comment 02/19/25 02/19/25 Range/Units 13:59 11:30 WBC 5.54 (4.8-10.8) K/ul RBC 5.38 (4.70-6.10) M/uL Hgb 16.2 (14.0-18.0) g/dl Hct 46.1 (42.0-52.0) % MCV 85.7 (80.0-100.0) fL MCH 30.1 (25.0-34.0) pg MCHC 35.1 (32.0-36.0) g/dL RDW Std Deviation 40.1 (36.4-46.3) fL RDW Coeff of Kacey 13.0 (11.5-14.5) % Plt Count 137 (130-400) K/uL MPV 8.7 L (9.4-12.4) fL Immature Gran % (Auto) 1.1 % Neut % (Auto) 55.5 % Lymph % (Auto) 30.1 % Harlan % (Auto) 9.4 % Eos % (Auto) 3.4 % Baso % (Auto) 0.5 % Neut # (Auto) 3.07 (1.40-6.50) K/uL Lymph # (Auto) 1.67 (1.20-3.40) K/uL Harlan # (Auto) 0.52 (0.11-0.59) K/uL Eos # (Auto) 0.19 (0.00-0.50) K/uL Baso # (Auto) 0.03 (0.00-0.20) K/uL Immature Gran # (Auto) 0.06 (0.01-0.20) K/uL PT 11.0 (9.0-12.0) Seconds INR 1.0 (0.9-1.1) APTT 25 (21-31) Seconds PTT Ratio 0.9 Sodium 136 (136-145) mmol/L Potassium 4.3 (3.5-5.1) mmol/L Chloride 106 (98-107) mmol/L Carbon Dioxide 25 (21-32) mmol/L Anion Gap 5 (3-11) BUN 27 H (6-23) mg/dl Creatinine 1.03 (0.6-1.4) mg/dl Est Cr Clr Drug Dosing 107.4 ml/min eGFR 86.32 BUN/Creatinine Ratio 26.2 H (10-20) Glucose 100 H (70-99(Fasting)) mg/dl Lactate (0.4-2.0) mmol/L Calcium 9.1 (8.6-10.3) mg/dl Magnesium (1.7-2.4) mg/dl Total Bilirubin 0.4 (0.2-1.0) mg/dl Direct Bilirubin (0-0.2) mg/dl AST 14 (13-39) U/L ALT 21 (7-52) U/L Alkaline Phosphatase 57 (34-104) U/L Troponin I High Sens (0-20) pg/ml Total Protein 6.9 (6.0-8.3) gm/dl Albumin 4.3 (3.4-5.0) gm/dl Globulin 2.6 (2.5-4.0) gm/dl Albumin/Globulin Ratio 1.7 (0.9-2) Procalcitonin 0.05 (0-0.5) ng/ml Urine Color Yellow Urine Appearance Clear (Clear) Urine pH 7.0 (4.5-7.5) Ur Specific [place] 1.017 (1.000-1.030) Urine Protein Negative (Negative) Urine Glucose (UA) Negative (Negative) Urine Ketones Negative (Negative) Urine Blood Negative (Negative) Urine Nitrite Negative (Negative) Urine Bilirubin Negative (Negative) Urine Urobilinogen Negative (Negative) Ur Leukocyte Esterase Negative (Negative) Urine Comment Diagnostic Findings Head CT 02/19/25 11:51 CT head/brain wo con CLINICAL HISTORY: Fall, struck head. TECHNIQUE: Multiple axial CT images of the head were obtained without contrast. A dose lowering technique was utilized adhering to the principles of ALARA. CT DOSE: 1771.84 mGy.cm COMPARISON: 01/22/2025 FINDINGS: No intracranial hemorrhage seen. No mass effect, midline shift, or hydrocephalus. No skull fracture seen. Stable mild mucosal thickening at the sphenoid sinus. Otherwise the visualized paranasal sinuses and mastoid air cells are clear. IMPRESSION: No acute findings. ACT 112: Negative or not required by law. The above report was generated using voice recognition software. It may contain grammatical, syntax or spelling errors. Electronically signed by: Vladislav Harmon M.D. 02/19/2025 12:[address] 02/19/25 11:51 CT lumbar spine wo con CLINICAL HISTORY: Fall, back pain COMPARISON STUDY: Lumbar spine CT and lumbar spine MRI January 22, 2025. TECHNIQUE: Axial images of the lumbar spine were obtained without IV contrast. Sagittal and coronal reformats were viewed. A dose lowering technique was utilized adhering to the principles of ALARA. FINDINGS: For purposes of numbering on this exam, the L5-S1 disc space is assigned to axial image 335 of 409. There are postoperative findings following L4-L5 and L5-S1 discectomy and fusion. Hardware is intact. Alignment of the lumbar spine is anatomic. Vertebral body heights are maintained. There are no fractures. There are no suspicious osseous lesions. Central canal and neural foramen are suboptimally assessed given CT technique. Paravertebral soft tissues are unremarkable by CT. IMPRESSION: 1. No acute lumbar spine fracture or subluxation. 2. Stable findings following L4-S1 discectomy and fusion. ACT 112: Negative or not required by law. Electronically signed by: Bradley Messer M.D. 02/19/2025 12:37 PM Elbow X-Ray 02/19/25 12:04 XR elbow RT min 3V routine CLINICAL HISTORY: Fall, R elbow pain COMPARISON: None FINDINGS: No fracture or dislocation seen. IMPRESSION: No fracture seen. ACT 112: Negative or not required by law. Electronically signed by: Vladislav Harmon M.D. 02/19/2025 12:57 PM Chest X-Ray 02/19/25 14:33 XR chest 1V portable CLINICAL HISTORY: Sepsis COMPARISON STUDY: 06/16/2024 FINDINGS: Heart size and pulmonary vasculature are normal. No consolidation or pleural effusion. No pneumothorax. IMPRESSION: No acute findings. ACT 112: Negative or not required by law. Electronically signed by: Vladislav Harmon M.D. 02/19/2025 3:13 PM Lumbar Spine MRI 02/20/25 07:29 MRI OF THE LUMBAR SPINE WITHOUT CONTRAST CLINICAL HISTORY: Chronic pain with severe persistent exacerbation. COMPARISON STUDY: Lumbar spine MRI January 22, [address] February 19, 2025. TECHNIQUE: Utilizing a 3 Trudi magnet and dedicated coil, multiplanar, multiecho imaging of the lumbar spine was performed without IV contrast. Metallic artifact reduction technique was utilized. FINDINGS: For purposes of numbering on this exam, the L5-S1 disc space is assigned to axial image 18 of 25 of the lower axial sequences. There are postoperative findings consistent with L4-L5 and L5-S1 discectomy fusion. Postoperative appearance is unchanged since MRI of January 22, 2025. There are no lumbar spine fractures. A L1 vertebral body hemangioma is unchanged. No suspicious marrow replacement is present. Is no intracanalicular mass or fluid collection. The conus terminates at the mid L1 level. Paravertebral soft tissues are unremarkable. L1-2: The central canal and neural foramen are patent. L2-3: There is a mild disc bulge with small central annular tear. Mild central canal stenosis is unchanged since MRI of January 22, 2025. There is desiccation of the disc. The neural foramen are patent. L3-4: There is moderate facet arthrosis with minimal disc bulge. There is mild ligamentous hypertrophy. The findings result in mild central canal stenosis with patent AP diameter of the canal is 7.1 mm. This is unchanged. The neural foramen are patent. L4-5: No recurrent central canal stenosis is identified status post decompression. The neural foramen are patent. L5-S1: No recurrent central canal stenosis is present. There is no significant neural foraminal stenosis. IMPRESSION: 1. Stable postoperative findings following L4-S1 discectomy and fusion. 2. No change in mild central canal stenosis at L2-L3 and L3-L4. 3. No significant neural foraminal stenosis. 3. No lumbar spine fractures. ACT 112: Negative or not required by law. Electronically signed by: Bradley Messer M.D. 02/20/2025 9:46 AM PG Care Time/CCT Total # of Minutes Spent Total Time Spent with Patient: Total time spent is greater than 50% in coordination of care (as documented) at patient's floor/unit and/or counseling patient: I spent 75 minutes overall addressing this case: 15 min in medical data review/discussion with referring provider(s) and/or preparation for the visit 25 min in direct interaction with the patient/exam 000 min in Advance Care Planning/Goals of Care discussions as detailed above in note (must be >16min) 15 min in subsequent review and synthesis of assessment and plan 20 min communicating with other providers regarding the patient's case: primary team and nursing [place] [address] IN/OBS CONSULT LVL 5,80M Patient Type New Medical Decision Making High Complexity Diagnoses Failed back surgical syndrome M96.1 Therapeutic opioid-induced constipation (OIC) K59.03; T40.2X5A Obstructive sleep apnea G47.33 Postlaminectomy syndrome of lumbosacral region M96.1 Back pain M54.9 Anxiety and depression F41.9; F32.A Palliative care by specialist Z51.5 Comment [id number]
[2025-02-23 06:26] LABS: Hematocrit (blood only) 42.0 % (42.0-52.0); Hemoglobin 14.5 g/dl (14.0-18.0); Immature Granulocytes # (auto) 0.10 K/uL (0.01-0.20); Immature Granulocytes % (auto) 1.2 %; Mean Corpuscular Hemoglobin 30.4 pg (25.0-34.0); Mean Corpuscular Volume 88.1 fL (80.0-100.0); Platelet Count 169 K/uL (130-400); RDW Standard Deviation 42.1 fL (36.4-46.3); Red Blood Count 4.77 M/uL (4.70-6.10); White Blood Count 8.23 K/ul (4.8-10.8)
[2025-02-23 07:12] LABS: Anion Gap 4.0 (3-11); Blood Urea Nitrogen 30.0 mg/dl (6-23); Calcium 8.6 mg/dl (8.6-10.3); Carbon Dioxide 33.0 mmol/L (21-32); Chloride 101.0 mmol/L (98-107); Creatinine Clr Calc Pharmacy 98.4 ml/min; Glucose 85.0 mg/dl (70-99(Fasting)); Potassium 4.5 mmol/L (3.5-5.1); Sodium 138.0 mmol/L (136-145)
--- NOTE | 2025-02-23 11:49 | Hospitalist Progress Note ---
Date of Service February 23, 2025 Assessment & Plan (1) Intractable low back pain: (2) Chronic back pain: (3) Hypertension: (4) Hyperlipidemia: (5) Sleep apnea: (6) Anxiety and depression: (7) Failed back surgical syndrome: (8) Migraine with aura: (9) Esophageal reflux: Plan Acute intractable low back pain Chronic low back pain Lumbar stenosis - acute and severe exacerbation of his chronic low back pain. remains poorly controlled although his functional status does seem to be improving. Remains on a high risk regimen. Multiple surgeries, very complicated recent history. Multiple severe exacerbations in recent weeks, awaiting spinal stimulator implant likely in March - multimodal pain control, supportive cares - DC MAT TESTER, oral MS Contin 15 mg twice daily, IV morphine 4 mg every 3 hours. This will provide an appropriate amount of morphine and a stepwise fashion compared to his MAT TESTER use - Continue Lyrica, shaking is not clearly related to his medications and is intermittent - Continue Toradol at current dose - Continue with multimodal pain control, massage therapy as able, encouraged to look into acupuncture - Reviewed with palliative providers - Will add PT and OT consults Hypertension - Blood pressures labile but generally within target range at this time no adjustment necessary - no intervention required at this time, closely monitor, losartan was discontinued recently secondary to hypotension Obstructive sleep apnea History of respiratory failure - he does not use CPAP at home, will continuously monitor with pulse ox. - He has used albuterol in the past, will continue - He did better with oxygen last night although RT reports indicate room air. Will assess overall need Coronary artery disease, history of NSTEMI - follows with cardiology, -He was transitoned to plavix 75mg daily in September, this was continued Anxiety Depression History of PTSD - continue Zoloft 100 mg, trazodone 150 mg at night - See Section 1 above: This is signficantly impacting his overall care and likely limiting the response to current therapy - Ideally we could coordinate with neuropsyche and more closely integrate with PTSD therapy, will consult [facility] liason to see if they can facilitate resources. - Will review recent [facility] liaison today Migraine - well-controlled at this time does follow with neurology, and reading the notes it seems as he had a atypical or complex migraine history initially thought to possibly be seizure. Well-controlled recently Prophylaxis - PPI plus Lovenox CODE STATUS - full code per his wishes, discussed with he and his son at the bedside at the time of admission Admission and Anticipated Discharge Date Admission Date: February 19, 2025 Subjective Doing okay this morning, he is actually sitting up at the bedside sitting states he is having quite a bit of shaking, pain is only modestly controlled. Doing okay with bowel and bladder function. Appetite is okay. Nausea and vomiting are controlled. Again lengthy discussion with the patient and his in regards to his overall pain regimen and management expectations and plan. He will transition to an oral based regimen. Patient and are in agreement. Review of Systems Neurologic: Brain fog improved but not resolved Physical Exam Constitutional: NAD, slightly somnolent during exam Eyes: sclera clear Respiratory: Clear to auscultation Cardiovascular: Regular rate and rhythm no murmurs rubs or gallops Musculoskeletal: No edema Skin: No pallor no rash no discoloration Neurologic: Weekly symptoms return Results & Data Results & Data Vital Signs (Past 12 Hours) Vital Signs Temp Pulse Pulse Pulse Resp BP BP 02/23/25 09:49 47 L 02/23/25 08:10 36.3 C L 59 L 18 169/106 H 02/23/25 06:03 65 02/23/25 01:25 49 L 02/23/25 00:09 65 20 123/78 02/22/25 23:51 81 Pulse Ox Pulse Ox O2 Del Method O2 Del Method 02/23/25 09:49 02/23/25 08:10 96 Room Air 02/23/25 06:03 99 Room Air 02/23/25 01:25 90 Room Air 02/23/25 00:09 96 Room Air 02/22/25 23:51 PG Care Time/CCT Total # of Minutes Spent Total Time Spent with Patient: Total time spent is greater than 50% in coordination of care (as documented) at patient's floor/unit and/or counseling patient: Coding Level of Care Code 25638 SUB INP/OBS CARE 3/50MIN Diagnoses Intractable low back pain M54.59 Chronic left-sided low back pain with left-sided sciatica M54.42; G89.29 Back pain location: low back pain Back pain laterality: left Sciatica presence: with sciatica Sciatica laterality: sciatica of left side Primary hypertension I10 Hypertension type: primary hypertension Mixed hyperlipidemia E78.2 Hyperlipidemia type: mixed hyperlipidemia Sleep apnea, unspecified type G47.30 Sleep apnea type: unspecified type Anxiety and depression F41.9; F32.A Failed back surgical syndrome M96.1 Migraine with aura and without status migrainosus, not intractable G43.109 Status migrainosus presence: without status migrainosus Intractability: not intractable Gastroesophageal reflux disease, unspecified whether esophagitis present K21.9 Esophagitis presence: esophagitis presence not specified (2) Chronic back pain Back pain location: low back pain Back pain laterality: left Sciatica presence: with sciatica Sciatica laterality: sciatica of left side Qualified Code(s): M54.42 - Lumbago with sciatica, left side; G89.29 - Other chronic pain (3) Hypertension Hypertension type: primary hypertension Qualified Code(s): I10 - Essential (primary) hypertension (4) Hyperlipidemia Hyperlipidemia type: mixed hyperlipidemia Qualified Code(s): E78.2 - Mixed hyperlipidemia (5) Sleep apnea Sleep apnea type: unspecified type Qualified Code(s): G47.30 - Sleep apnea, unspecified (8) Migraine with aura Status migrainosus presence: without status migrainosus Intractability: not intractable Qualified Code(s): G43.109 - Migraine with aura, not intractable, without status migrainosus (9) Esophageal reflux Esophagitis presence: esophagitis presence not specified Qualified Code(s): K21.9 - Gastro-esophageal reflux disease without esophagitis
[2025-02-23] MEDS: MoRPHine SULFATE CR 15 MG TABCR PO SCH (11:55)
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
--- NOTE | 2025-02-23 16:25 | Electrocardiogram Report ---
Test Reason : Blood Pressure : */* mmHG Vent. Rate : 56 BPM Atrial Rate : 56 BPM P-R Int : 158 ms QRS Dur : 92 ms QT Int : 424 ms P-R-T Axes : 53 66 22 degrees QTcB Int : 409 ms Sinus bradycardia with sinus arrhythmia Otherwise normal ECG When compared with ECG of 07-Jun-2024 15:59, No significant change was found Confirmed by Gianfranco Ball ([id number] on 02/23/2025 4:24:42 PM Referred By: REFERRED SELF Confirmed By: Gianfranco Ball
[2025-02-23] MEDS: MoRPHine SULFATE 4 MG/ML 1 ML CARP\\VIAL IV PRN (16:39)
[2025-02-24 09:40] VITALS: RESP 23; TEMP 97.3; O2SAT 92
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
[2025-02-24 14:54] VITALS: BP 167/93; PULSE 68
== END 2025-02-24 16:30 | disposition home or self-care (01) | DRG 552 ==
LOC: ED 11:16 → EDINP 14:33 → 2S 16:02
DX: M54.50 Low back pain, unspecified; M48.061 Spinal stenosis, lumbar region without neurogenic claudication; I25.10 Atherosclerotic heart disease of native coronary artery without angina pectoris; G47.30 Sleep apnea, unspecified; F32.A Depression, unspecified; Z88.0 Allergy status to penicillin; G89.29 Other chronic pain; K21.9 Gastro-esophageal reflux disease without esophagitis; I25.2 Old myocardial infarction; F17.290 Nicotine dependence, other tobacco product, uncomplicated; E78.5 Hyperlipidemia, unspecified; G43.109 Migraine with aura, not intractable, without status migrainosus; F41.9 Anxiety disorder, unspecified; Z95.5 Presence of coronary angioplasty implant and graft; Z88.8 Allergy status to other drugs, medicaments and biological substances; I10 Essential (primary) hypertension; Z88.5 Allergy status to narcotic agent; Z79.899 Other long term (current) drug therapy; Z98.1 Arthrodesis status; M96.1 Postlaminectomy syndrome, not elsewhere classified; Z88.1 Allergy status to other antibiotic agents; Z63.5 Disruption of family by separation and divorce

== ENCOUNTER 2025-05-07 08:08 | Observation (INO) ==
--- NOTE | 2025-05-07 08:19 | Emergency Department Note ---
Impression & Plan Chest pain, Cough, Chest congestion, High serum chloride ED Provider Note NAME: PROMISE BLACKMAN AGE: 54 SEX: M : 1970 ARRIVES VIA: Ambulance INFORMANT: Patient ED PROVIDER(S): Nicolas Stoner DO CHIEF COMPLAINT: Shortness of breath and chest pain HPI: Patient is a 54-year-old male with a past medical history of NSTEMI, with 2 previous stents, chronic lower back pain, cigar smoker, migraines who presents to the ER for cough and congestion which has been present for over a week. He notes that shortness of breath has been present as well. Chest pain started this morning around 6 AM. Feels like tightness, shortness of breath and pain radiating to his right arm which consistent with his previous TX in 2023. He got 2 stents then. Denies any belly pain, nausea, vomiting, or diarrhea. No dysuria, urgency or frequency. He was placed on oxygen via EMS but was not hypoxic for EMS. ADDITIONAL HISTORY OBTAINED: Per HPI Chronic Medical/Social Conditions Affecting Care: Per HPI PAST MEDICAL HISTORY:See Below PAST SURGICAL HISTORY:See Below FAMILY HISTORY:See Below SOCIAL HISTORY:See Below HOME MEDICATIONS:See Below ALLERGIES:See Below VITALS:See Below PHYSICAL EXAMINATION: GENERAL: Sitting up in bed, alert, well appearing, well nourished, no distress, non-toxic EYE EXAM: normal conjunctiva. OROPHARYNX: no exudate, no erythema, lips, buccal mucosa, and tongue normal and mucous membranes are moist NECK: supple, no nuchal rigidity, no adenopathy, non-tender LUNGS: Crackles in the bilateral lung bases. Normal chest wall mechanics HEART: no murmurs, S1 normal and S2 normal ABDOMEN: abdomen soft, non-tender, normo-active bowel sounds, no masses, no rebound or guarding. UPPER EXTREMITIES: upper extremities are grossly normal. LOWER EXTREMITIES: Mild pitting edema NEURO EXAM: Normal sensorium, cranial nerves II-XII grossly intact, normal speech, no gross weakness of arms, no gross weakness of legs. MEDICAL DECISION MAKING: Patient is a 54-year-old male who presents ER for above-stated complaint. IV was established and blood work was obtained. Presents to the ER for upper respiratory symptoms in combination with chest pain which feels like his previous TX. He was given a DuoNeb as well as placed on BiPAP via EMS and given IV morphine per EMS who provided additional history. Labs show mild leukocytosis 11,000. No significant anemia. BMP with a slightly elevated chloride at 109. LFTs bilirubin and lipase is unremarkable. Viral panel was negative. Troponin was negative. He was given nitro while here with improvement of his symptoms but still had some pain. Repeat EKG showed no change. Did add on dimer and give him IV morphine. He was never hypoxic here but was placed on oxygen per nursing for comfort. Consults/Care Managements Discussions: Per [facility] Triage Nursing notes reviewed. Limited review of prior medical records performed Vital Signs: reviewed and remarkable for no significant abnormalities Differential diagnosis: Cardiac ischemia, aortic dissection, pulmonary embolism, pneumothorax, pneumonia, pericarditis, myocarditis, esophageal rupture, GERD, cholecystitis, pancreatitis, musculoskeletal, as well as other pathologies. ER treatment provided: See below Diagnostics interpreted by me include EKG and cardiac monitoring as listed below: -Cardiac Monitoring: An order was placed for continuous cardiac monitoring. The monitor shows a rate of 88 with sinus rhythm. -ECG: Sinus rhythm rate 88 Normal axis No PVCs QTc 442 EKG #2 Sinus rhythm rate 69 Normal axis No PVCs QTc 417 -Laboratory studies:Interpreted by me as stated above in MDM and shown below. Imaging studies: Xrays: As interpreted by me: Portable AP upright 1 view of the chest shows no focal M-Trate CTs show: none Procedures:none Critical Care: None Past Med/Surg History Problem List (Updated 05/07/25 @ 12:18 by Kvng Flores DO) Atypical chest pain High serum chloride (Acute) Chest congestion (Acute) Cough (Acute) Chest pain (Acute) Obstructive sleep apnea Therapeutic opioid-induced constipation (OIC) Back pain Palliative care by specialist Anxiety and depression FOLLOWS COUNSELOR 1 X PER MONTH Failed back surgical syndrome Lumbar pain determined by palpation Abrasion of forehead (Acute) Fall (Acute) Intractable low back pain (Acute) CHI (closed head injury) (Acute) Low back pain (Acute) Fall (Acute) Neuroforaminal stenosis of lumbar spine Postlaminectomy syndrome of lumbosacral region Lumbar radicular pain Ambulatory dysfunction (Acute) Intractable low back pain (Acute) Degenerative disc disease Spinal stenosis Cigar smoker Allergic rhinitis with postnasal drip Chronic cough Abnormal CT scan, chest Acute respiratory failure with hypoxia BYRD (dyspnea on exertion) (Acute) Pneumonia involving right lung (Acute) Failure of outpatient treatment Acute on chronic respiratory failure with hypoxia Multifocal pneumonia Pneumonia (Acute) Migraine Coronary artery disease Epidermal cyst Sebaceous cyst De Quervain's tenosynovitis Depression (Chronic) Anxiety (Chronic) 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 David Shea ([facility] – [place]) Dyslipidemia (Chronic) Hypertension (Chronic) Allergic rhinitis Post traumatic stress disorder (Chronic) Cervical spinal stenosis (Chronic) Thoracic degenerative disc disease (Chronic) Erectile dysfunction (Chronic) Chronic daily headache Medical History Hypoxia NSTEMI (non-ST elevated myocardial infarction) Viral pneumonia Chest pain Disc degeneration, lumbar Esophageal reflux Obstructive sleep apnea Migraine with aura Parainfluenza virus bronchitis Froin's syndrome FOLLOWED BY DR. SHEA Failed back surgical syndrome Post traumatic stress disorder Anxiety and depression FOLLOWS COUNSELOR 1 X PER MONTH Hypertension Hyperlipidemia Sleep apnea no device Left lateral epicondylitis History of suicide attempt Status epilepticus (10/19/13) No problems since, had mini-seizures r/t "body shutting down". believed r/t the Froin's syndrome. treated at [facility]. HOSPITALIZED 2013 AND 2016 "BELIEVES RELATED TO GABAPENTIN NOT BROKEN DOWN" Surgical History EIC (epidermal inclusion cyst) (12/14/24) History of colonoscopy (~09/2021) Family history of reaction to anesthesia Cyst S/P lumbar and lumbosacral fusion by anterior technique [place] teeth removed S/P cervical spinal fusion History of esophagogastroduodenoscopy (EGD) Family History Grandfather (Maternal) Diabetes Mother FHx: skin cancer Sinus disorder Grandmother (Maternal) FHx: stomach cancer Brother Asthma Sinus disorder Father Cardiac disorder Lumbar disc disease Parkinson disease Aunt Diabetes Uncle Diabetes Grandmother Cancer Other Gallbladder disease Heart disease Hypertension Social History Smoking Status: Never smoker Cigarettes Per Day: 1-2 cigars weekly; Second Hand Exposure: No; Do You Dip or Chew Tobacco: No; Hx Alcohol Use: Yes Alcohol type: beer Alcohol Intake Frequency: 2-4 x/Month Hx Substance Use: No Preferred Language: Kazakh Communication Ability: Effective Visual Impairment: No Limitations Hearing Ability: Normal General Accounting Clerk Required: No Beliefs That Will Affect Care: None marital status: Current Living Situation: Spouse Current Living Situation Comment: 1 story home with 2 steps to enter home current occupational status: employed 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 How many Children do You have: 1 Feels Safe at Home: Yes Childhood Exposure to Second-Hand Smoke: No Diet: regular during the past year weight has: decreased > 10 lbs Dental Care, Regularly: Yes Physical Activity Frequency: Daily Seatbelt Use: always Sunscreen Use: No Assistive Devices: Cane and Walker Allergies Allergies Allergy/AdvReac Type Severity Reaction Status Date / Time hydromorphone Allergy Severe SHORTNESS Verified 05/01/25 08:50 OF BREATH Penicillins Allergy Severe ALLERGY TO Verified 05/01/25 08:50 [id number] doxycycline Allergy Intermediate BLISTERS/HI Verified 05/01/25 08:50 VES lamotrigine Allergy Intermediate tremors Verified 05/01/25 08:50 clindamycin AdvReac Intermediate NAUSEA Verified 05/01/25 08:50 eletriptan AdvReac Mild nausea/vomi Verified 05/01/25 08:50 ting gabapentin AdvReac Anaphylaxis Verified 05/01/25 08:50 Home Meds Home Medications Medication Instructions Recorded Confirmed levocetirizine 5 mg tablet (Xyzal) 5 mg PO PM 04/17/25 05/07/25 Previous Rx's Medication Instructions Recorded tadalafil 5 mg tablet 20 mg (4 x 5 mg) PO ONCE PRN 04/13/23 sexual activity #30 tabs albuterol sulfate 90 mcg/actuation 2 puff inhalation Q6H PRN 08/21/24 aerosol inhaler Shortness Of Breath Or Wheezing #18 grams atorvastatin 40 mg tablet 40 mg PO QAM #90 tabs 10/10/24 clopidogrel 75 mg tablet 75 mg PO QAM #90 tabs 10/11/24 montelukast 10 mg tablet 10 mg PO QPM #90 tabs 01/09/25 pantoprazole 40 mg tablet,delayed 40 mg PO QAM #90 tabs 01/09/25 release acetaminophen 500 mg tablet 1,000 mg (2 x 500 mg) PO Q8H #60 01/25/25 (Tylenol Extra Strength) tabs nitroglycerin 0.4 mg sublingual 0.4 mg sublingual Q5M PRN chest 03/05/25 tablet (Nitrostat) pain #1 btl sertraline 100 mg tablet (Zoloft) 100 mg PO QAM #90 tabs 03/05/25 ezetimibe 10 mg tablet (Zetia) 10 mg PO DAILY #90 tabs 04/17/25 trazodone 150 mg tablet 150 mg PO HS #90 tabs 04/25/25 pregabalin 50 mg capsule (Lyrica) 50 mg PO BID #90 caps 04/26/25 Results & Data (ED) Vital Signs Vital Signs - 24 hr 05/07/25 08:00 05/07/25 08:14 05/07/25 08:14 Temperature 36.9 C Temperature Source Oral Pulse Rate 95 H Pulse Rate [Apical] Pulse Rhythm [Apical] Respiratory Rate 30 H Respiratory Effort / Characteristics Non-Labored Spontaneous Spontaneous Short of Breath Respiratory Depth Normal Shallow Respiratory Pattern Regular Tachypnea Blood Pressure 144/77 H Blood Pressure [Right Arm] Blood Pressure Mean 99 Blood Pressure Mean [Right Arm] Blood Pressure Position Lying Pulse Oximetry 92 92 Oxygen Delivery Method Room Air Room Air Room Air Oxygen Flow Rate Sepsis Recent Fever Within 48 Hours No Sepsis New/Unexplained Change in Mental Status No Sepsis Action Taken by Nursing No Action Required 05/07/25 08:15 05/07/25 08:41 05/07/25 09:30 Temperature Temperature Source Pulse Rate 83 Pulse Rate [Apical] 77 Pulse Rhythm [Apical] Regular Respiratory Rate 22 Respiratory Effort / Characteristics Non-Labored Respiratory Depth Respiratory Pattern Regular Blood Pressure Blood Pressure [Right Arm] 122/81 Blood Pressure Mean Blood Pressure Mean [Right Arm] 94 Blood Pressure Position Pulse Oximetry 92 93 Oxygen Delivery Method Room Air Oxymask Oxygen Flow Rate 4 Sepsis Recent Fever Within 48 Hours Sepsis New/Unexplained Change in Mental Status Sepsis Action Taken by Nursing 05/07/25 10:00 Temperature Temperature Source Pulse Rate Pulse Rate [Apical] 85 Pulse Rhythm [Apical] Respiratory Rate 18 Respiratory Effort / Characteristics Non-Labored Spontaneous Respiratory Depth Normal Respiratory Pattern Regular Blood Pressure Blood Pressure [Right Arm] 128/88 Blood Pressure Mean Blood Pressure Mean [Right Arm] 101 Blood Pressure Position Pulse Oximetry 96 Oxygen Delivery Method Oxymask Oxygen Flow Rate 2 Sepsis Recent Fever Within 48 Hours Sepsis New/Unexplained Change in Mental Status Sepsis Action Taken by Nursing Laboratory Data 05/07/25 08:20 05/07/25 08:20 Lab Results 05/07/25 Range/Units 08:20 WBC 11.41 H (4.8-10.8) K/ul RBC 5.09 (4.70-6.10) M/uL Hgb 15.6 (14.0-18.0) g/dL Hct 44.5 (42.0-52.0) % MCV 87.4 (80.0-100.0) fL MCH 30.6 (25.0-34.0) pg MCHC 35.1 (32.0-36.0) g/dL RDW Std Deviation 42.5 (36.4-46.3) fL RDW Coeff of Kacey 13.5 (11.5-14.5) % Plt Count 189 (130-400) K/uL MPV 8.7 L (9.4-12.4) fL Immature Gran % (Auto) 1.2 % Neut % (Auto) 67.9 % Lymph % (Auto) 19.8 % Curry % (Auto) 7.4 % Eos % (Auto) 3.2 % Baso % (Auto) 0.5 % Neut # (Auto) 7.73 H (1.40-6.50) K/uL Lymph # (Auto) 2.26 (1.20-3.40) K/uL Curry # (Auto) 0.85 H (0.11-0.59) K/uL Eos # (Auto) 0.37 (0.00-0.50) K/uL Baso # (Auto) 0.06 (0.00-0.20) K/uL Immature Gran # (Auto) 0.14 (0.01-0.20) K/uL D-Dimer < 190 (0-500) ug/L FEU Sodium 140 (136-145) mmol/L Potassium 4.4 (3.5-5.1) mmol/L Chloride 109 H (98-107) mmol/L Carbon Dioxide 24 (21-32) mmol/L Anion Gap 7 (3-11) BUN 19 (6-23) mg/dl Creatinine 0.88 (0.6-1.4) mg/dl Est Cr Clr Drug Dosing 117.6 ml/min eGFR 102.18 BUN/Creatinine Ratio 21.6 H (10-20) Glucose 94 (70-99(Fasting)) mg/dl Calcium 9.5 (8.6-10.3) mg/dl Total Bilirubin 0.4 (0.2-1.0) mg/dl AST 12 L (13-39) U/L ALT 22 (7-52) U/L Alkaline Phosphatase 82 (34-104) U/L Troponin I High Sens 3.0 (0-20) pg/ml Total Protein 7.2 (6.0-8.3) gm/dl Albumin 4.3 (3.4-5.0) gm/dl Globulin 2.9 (2.5-4.0) gm/dl Albumin/Globulin Ratio 1.5 (0.9-2) Lipase 20 (11-82) U/L Adenovirus (PCR) Not Detected (NotDetected) B. pertussis DNA (PCR) Not Detected (NotDetected) B.parapertussis DNA PCR Not Detected (NotDetected) C. pneumoniae DNA (PCR) Not Detected (NotDetected) Coronavirus OC43 (PCR) Not Detected (NotDetected) Coronavirus HKU1 (PCR) Not Detected (NotDetected) Coronavirus 229E (PCR) Not Detected (NotDetected) SARS-CoV-2 (PCR) Not Detected (NotDetected) Coronavirus NL63 (PCR) Not Detected (NotDetected) Human Metapneumovir PCR Not Detected (NotDetected) Influenza Type A (PCR) Not Detected (NotDetected) Influenza Type B (PCR) Not Detected (NotDetected) M. pneumoniae (PCR) Not Detected (NotDetected) Parainfluenza 1 (PCR) Not Detected (NotDetected) Parainfluenza 2 (PCR) Not Detected (NotDetected) Parainfluenza 3 (PCR) Not Detected (NotDetected) Parainfluenza 4 (PCR) Not Detected (NotDetected) RSV (PCR) Not Detected (NotDetected) Entero/Rhino (PCR) Not Detected (NotDetected) Administered Medications Methylprednisolone 40 mg/ (Syringe) 0.64 mls @ 1.5 mls/min IV BID SOCRATES Stop: 06/06/25 13:59 Last Admin: 05/07/25 14:44 Dose: 1.5 mls/min Documented By: MARY JANE Morphine Sulfate (Morphine Sulfate 2 Mg/Ml Carp) 1 mg IV Q3H PRN PRN Reason: Pain 7,8,9,10 Stop: 05/21/25 10:57 Last Admin: 05/07/25 11:40 Dose: 1 mg Documented By: MARY JANE Pantoprazole Sodium (Pantoprazole 40 Mg Tab) 40 mg PO QAM SOCRATES Stop: 06/06/25 13:33 Last Admin: 05/07/25 14:44 Dose: Not Given Documented By: MARY JANE Discontinued Medications Levalbuterol HCl (Levalbuterol 1.25 Mg/3 Ml Neb) 1.25 mg NEB NOW STA Stop: 05/07/25 11:04 Last Admin: 05/07/25 11:40 Dose: 1.25 mg Documented By: MARY JANE Lidocaine (Lidocaine 5% 1 Patch) 1 patch TD NOW STA Stop: 05/07/25 11:08 Last Admin: 05/07/25 11:46 Dose: Not Given Documented By: MARY JANE Morphine Sulfate (Morphine Sulfate 4 Mg/Ml 1 Ml Carp\\Vial) 4 mg IV NOW STA Stop: 05/07/25 09:36 Last Admin: 05/07/25 09:39 Dose: 4 mg Documented By: DANICA Nitroglycerin (Nitroglycerin Sl 0.4 Mg/Tab Tab) 0.4 mg SL NOW STA Stop: 05/07/25 08:17 Last Admin: 05/07/25 08:29 Dose: 0.4 mg Documented By: DANICA Imaging Data Radiologist's Impression: Chest X-Ray 05/07/25 08:15 XR chest 1V portable CLINICAL HISTORY: Chest pain, nonspecific COMPARISON STUDY: 02/19/2025 FINDINGS: The heart is at the upper limits of normal in size. There is no overt failure. Slight interstitial prominence likely relates to the patient's body habitus and suboptimal inspiratory effort. There is no lobar consolidation. There are no pleural effusions. Tram track calcifications projected to the left heart border likely related to coronary artery calcification or a coronary artery calcified stent. Postsurgical changes are present within the cervical spine. IMPRESSION: No active disease in the chest. ACT 112: Negative or not required by law. Electronically signed by: Connor Adkins M.D. 05/07/2025 9:01 AM Discharge Plan Visit Data Chief Complaint: Shortness of Breath/Dyspnea Stated Complaint: SOB, CHEST HEAVINESS ED Provider: Nicolas Stoner Discharge Problem: Chest pain, Cough, Chest congestion, High serum chloride Condition: Fair Discharge Instructions Interventions: ED Discharge Assessment Last Done: 05/07/25 13:34 Discharge Problem: Chest pain Qualifiers: Chest pain type: unspecified Qualified Code(s): R07.9 - Chest pain, unspecified Cough Qualifiers: Cough type: unspecified Qualified Code(s): R05.9 - Cough, unspecified
[2025-05-07] MEDS: NITROGLYCERIN SL 0.4 MG/TAB TAB SL STA (08:29)
[2025-05-07 08:37] LABS: Hematocrit (blood only) 44.5 % (42.0-52.0); Hemoglobin 15.6 g/dL (14.0-18.0); Immature Granulocytes # (auto) 0.14 K/uL (0.01-0.20); Immature Granulocytes % (auto) 1.2 %; Mean Corpuscular Hemoglobin 30.6 pg (25.0-34.0); Mean Corpuscular Volume 87.4 fL (80.0-100.0); Platelet Count 189 K/uL (130-400); RDW Standard Deviation 42.5 fL (36.4-46.3); Red Blood Count 5.09 M/uL (4.70-6.10); White Blood Count 11.41 K/ul (4.8-10.8)
[2025-05-07 08:56] LABS: Alanine Aminotransferase 22.0 U/L (7-52); Albumin Globulin Ratio 1.5 (0.9-2); Albumin Level 4.3 gm/dl (3.4-5.0); Alkaline Phosphatase 82.0 U/L (34-104); Anion Gap 7.0 (3-11); Bilirubin,Total 0.4 mg/dl (0.2-1.0); Blood Urea Nitrogen 19.0 mg/dl (6-23); Calcium 9.5 mg/dl (8.6-10.3); Carbon Dioxide 24.0 mmol/L (21-32); Chloride 109.0 mmol/L (98-107); Creatinine Clr Calc Pharmacy 117.6 ml/min; Globulin 2.9 gm/dl (2.5-4.0); Glucose 94.0 mg/dl (70-99(Fasting)); Lipase 20.0 U/L (11-82); Potassium 4.4 mmol/L (3.5-5.1); Sodium 140.0 mmol/L (136-145); Total Protein 7.2 gm/dl (6.0-8.3)
--- NOTE | 2025-05-07 09:03 | XRay Report ---
XR chest 1V portable CLINICAL HISTORY: Chest pain, nonspecific COMPARISON STUDY: 02/19/2025 FINDINGS: The heart is at the upper limits of normal in size. There is no overt failure. Slight inter stitial prominence likely relates to the patient's body habitus and suboptimal inspiratory effort. Th ere is no lobar consolidation. There are no pleural effusions. Tram track calcifications projected to the left heart border likely related to coronary artery calcification or a coronary artery calcified stent. Postsurgical changes are present within the cervical spine. IMPRESSION: No active disease in the chest. ACT 112: Negative or not required by law. Electronically signed by: Connor Adkins M.D. 05/07/2025 9:01 AM
[2025-05-07 09:36] LABS: Chlamydia pneumoniae PCR Not Detected (NotDetected); Coronavirus 229E PCR Not Detected (NotDetected); Coronavirus CoV-2 (COVID19)PCR Not Detected (NotDetected); Coronavirus HKU1 PCR Not Detected (NotDetected); Coronavirus NL63 PCR Not Detected (NotDetected); Coronavirus OC43PCR Not Detected (NotDetected); Human Metapneumovirus PCR Not Detected (NotDetected); Parainfluenza Virus 1 PCR Not Detected (NotDetected); Parainfluenza Virus 2 PCR Not Detected (NotDetected); Parainfluenza Virus 3 PCR Not Detected (NotDetected); Parainfluenza Virus 4 PCR Not Detected (NotDetected); Respiratory Syncytial VirusPCR Not Detected (NotDetected); Rhinovirus/Enterovirus PCR Not Detected (NotDetected)
[2025-05-07] MEDS: MoRPHine SULFATE 4 MG/ML 1 ML CARP\\VIAL IV STA (09:39)
--- NOTE | 2025-05-07 10:07 | Electrocardiogram Report ---
Test Reason : Blood Pressure : */* mmHG Vent. Rate : 88 BPM Atrial Rate : 88 BPM P-R Int : 140 ms QRS Dur : 84 ms QT Int : 366 ms P-R-T Axes : 47 65 64 degrees QTcB Int : 442 ms Normal sinus rhythm Normal ECG When compared with ECG of 19-Feb-2025 14:44, Vent. rate has increased by [address] now depressed in Lateral leads Confirmed by Reza Thompson ([id number]) on 05/07/2025 10:07:30 AM Referred By: Confirmed By: Reza Thompson
--- NOTE | 2025-05-07 11:31 | History & Physical Report ---
Date of Service May 07, 2025 Assessment & Plan (1) Acute respiratory failure with hypoxia: (2) Cough: (3) Atypical chest pain: (4) Obstructive sleep apnea: (5) Anxiety and depression: (6) Intractable low back pain: (7) Allergic rhinitis with postnasal drip: (8) Chronic cough: (9) Coronary artery disease: (10) Dyslipidemia: (11) Hypertension: (12) Post traumatic stress disorder: Plan 54-year-old male with history of chronic back pain status post multiple lumbar back surgeries, cervical discectomy, status post fusion, migraines, coronary disease, NSTEMI with stents x 2, hypertension, hyperlipidemia, anxiety depression, PTSD, sleep apnea presents with shortness of breath and chest pain/tightness: #Acute hypoxic respiratory failure: Suspect presenting sx d/t asthma exacerbation- no formal RAD history - previous PFTs of suboptimal quality, history notable for allergic rhinitis, FHx +asthma, previous work up notable for elevated eosinophil count Start IV methylpred 40mg BID, levalbuterol nebs Q6H, albuterol 2 puffs Q6H PRN Supplemental O2 PRN to maintain SpO2>93% Minimally elevated WBC count, afebrile, negative CXR - therefore, will defer antibiotics at this time If no improvement, consider chest CT Consider repeating PFTs as outpatient #Atypical chest pain: Low suspicion for cardiac etiology given EKG without overt ischemic changes, negative trop, lack of response to nitroglycerin, and reproducibility of pain with palpation of chest wall Likely due to ongoing cough - lidocaine patch, tylenol PRN for moderate pain, morphine PRN for breakthrough pain #DILLAN: Not on CPAP at home #Allergic rhinitis: continue Xyzal, Singulair #HLD: continue atorvastatin, Zetia #Depression, anxiety, PTSD: continue sertraline #chronic low back pain: continue lyrica #CAD: Continue plavix Dispo: Admit-obs med/surg Diet: HH VTE ppx: lovenox Full Code History of Present Illness Primary Care Provider: RESHMA Barnett 54-year-old male with history of chronic back pain status post multiple lumbar back surgeries, cervical discectomy, status post fusion, migraines, coronary disease, NSTEMI with stents x 2, hypertension, hyperlipidemia, anxiety depression, PTSD, sleep apnea presents with shortness of breath and chest pain/tightness. Patient has had cough and congestion for the past week - was seen in outpatient setting, treated with course of azithromycin. Despite this, sx have progressively worsened. Today, felt particularly short of breath - checked SpO2 at home and was in the mid-80s on RA. Also felt chest pressure radiating into bilateral UEs. Endorses chills but no overt fevers. No improvement with nitro given by EMS and again in ED. Has been using albuterol with brief sx improvement. Denies formal dx of asthma or COPD, though has been following with pulmonology since May for chronic cough, BYRD, and abnormal chest CT (findings since resolved). ED Course: Negative trop, EKG without ischemic changes - chest tightness refractory to nitro CXR negative +leukocytosis Negative d-dimer Allergies Allergy/AdvReac Type Severity Reaction Status Date / Time hydromorphone Allergy Severe SHORTNESS Verified 05/01/25 08:50 OF BREATH Penicillins Allergy Severe ALLERGY TO Verified 05/01/25 08:50 [id number] doxycycline Allergy Intermediate BLISTERS/HI Verified 05/01/25 08:50 VES lamotrigine Allergy Intermediate tremors Verified 05/01/25 08:50 clindamycin AdvReac Intermediate NAUSEA Verified 05/01/25 08:50 eletriptan AdvReac Mild nausea/vomi Verified 05/01/25 08:50 ting gabapentin AdvReac Anaphylaxis Verified 05/01/25 08:50 Home Medications Medication Instructions Recorded Confirmed Type tadalafil 5 mg tablet 20 mg (4 x 5 mg) PO ONCE PRN 04/13/23 05/07/25 Rx sexual activity #30 tabs albuterol sulfate 90 mcg/actuation 2 puff inhalation Q6H PRN 08/21/24 05/07/25 Rx aerosol inhaler Shortness Of Breath Or Wheezing #18 grams atorvastatin 40 mg tablet 40 mg PO QAM #90 tabs 10/10/24 05/07/25 Rx clopidogrel 75 mg tablet 75 mg PO QAM #90 tabs 10/11/24 05/07/25 Rx montelukast 10 mg tablet 10 mg PO QPM #90 tabs 01/09/25 05/07/25 Rx pantoprazole 40 mg tablet,delayed 40 mg PO QAM #90 tabs 01/09/25 05/07/25 Rx release acetaminophen 500 mg tablet 1,000 mg (2 x 500 mg) PO Q8H #60 01/25/25 05/07/25 Rx (Tylenol Extra Strength) tabs nitroglycerin 0.4 mg sublingual 0.4 mg sublingual Q5M PRN chest 03/05/25 05/07/25 Rx tablet (Nitrostat) pain #1 btl sertraline 100 mg tablet (Zoloft) 100 mg PO QAM #90 tabs 03/05/25 05/07/25 Rx ezetimibe 10 mg tablet (Zetia) 10 mg PO DAILY #90 tabs 04/17/25 05/07/25 Rx levocetirizine 5 mg tablet (Xyzal) 5 mg PO PM 04/17/25 05/07/25 History trazodone 150 mg tablet 150 mg PO HS #90 tabs 04/25/25 05/07/25 Rx pregabalin 50 mg capsule (Lyrica) 50 mg PO BID #90 caps 04/26/25 05/07/25 Rx Past Med/Surg History Problem List (Updated 05/07/25 @ 12:18 by Kvng Flores DO) Atypical chest pain High serum chloride (Acute) Chest congestion (Acute) Cough (Acute) Chest pain (Acute) Obstructive sleep apnea Therapeutic opioid-induced constipation (OIC) Back pain Palliative care by specialist Anxiety and depression FOLLOWS COUNSELOR 1 X PER MONTH Failed back surgical syndrome Lumbar pain determined by palpation Abrasion of forehead (Acute) Fall (Acute) Intractable low back pain (Acute) CHI (closed head injury) (Acute) Low back pain (Acute) Fall (Acute) Neuroforaminal stenosis of lumbar spine Postlaminectomy syndrome of lumbosacral region Lumbar radicular pain Ambulatory dysfunction (Acute) Intractable low back pain (Acute) Degenerative disc disease Spinal stenosis Cigar smoker Allergic rhinitis with postnasal drip Chronic cough Abnormal CT scan, chest Acute respiratory failure with hypoxia BYRD (dyspnea on exertion) (Acute) Pneumonia involving right lung (Acute) Failure of outpatient treatment Acute on chronic respiratory failure with hypoxia Multifocal pneumonia Pneumonia (Acute) Migraine Coronary artery disease Epidermal cyst Sebaceous cyst De Quervain's tenosynovitis Depression (Chronic) Anxiety (Chronic) 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 David Shea ([facility] neuro) Dyslipidemia (Chronic) Hypertension (Chronic) Allergic rhinitis Post traumatic stress disorder (Chronic) Cervical spinal stenosis (Chronic) Thoracic degenerative disc disease (Chronic) Erectile dysfunction (Chronic) Chronic daily headache Medical History Hypoxia NSTEMI (non-ST elevated myocardial infarction) Viral pneumonia Chest pain Disc degeneration, lumbar Esophageal reflux Obstructive sleep apnea Migraine with aura Parainfluenza virus bronchitis Froin's syndrome FOLLOWED BY DR. SHEA Failed back surgical syndrome Post traumatic stress disorder Anxiety and depression FOLLOWS COUNSELOR 1 X PER MONTH Hypertension Hyperlipidemia Sleep apnea no device Left lateral epicondylitis History of suicide attempt Status epilepticus (10/19/13) No problems since, had mini-seizures r/t "body shutting down". believed r/t the Froin's syndrome. treated at [facility]. HOSPITALIZED 2013 AND 2015 "BELIEVES RELATED TO GABAPENTIN NOT BROKEN DOWN" Surgical History EIC (epidermal inclusion cyst) (12/14/24) History of colonoscopy (~09/2021) Family history of reaction to anesthesia Cyst S/P lumbar and lumbosacral fusion by anterior technique Parker teeth removed S/P cervical spinal fusion History of esophagogastroduodenoscopy (EGD) Family History Grandfather (Maternal) Diabetes Mother FHx: skin cancer Sinus disorder Grandmother (Maternal) FHx: stomach cancer Brother Asthma Sinus disorder Father Cardiac disorder Lumbar disc disease Parkinson disease Aunt Diabetes Uncle Diabetes Grandmother Cancer Other Gallbladder disease Heart disease Hypertension Social History Smoking Status: Never smoker Cigarettes Per Day: 1-2 cigars weekly; Second Hand Exposure: No; Do You Dip or Chew Tobacco: No; Hx Alcohol Use: Yes Alcohol type: beer Alcohol Intake Frequency: 2-4 x/Month Hx Substance Use: No Preferred Language: Chinese Communication Ability: Effective Visual Impairment: No Limitations Hearing Ability: Normal Salesforce Trainer Required: No Beliefs That Will Affect Care: None marital status: Current Living Situation: Spouse Current Living Situation Comment: 1 story home with 2 steps to enter home current occupational status: employed 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 How many Children do You have: 1 Feels Safe at Home: Yes Childhood Exposure to Second-Hand Smoke: No Diet: regular during the past year weight has: decreased > 10 lbs Dental Care, Regularly: Yes Physical Activity Frequency: Daily Seatbelt Use: always Sunscreen Use: No Assistive Devices: Cane and Walker Review of Systems Review of Systems: as per HPI Physical Exam Physical Exam: Constitutional: no acute distress HEENT: NCAT, no conjunctival injection CV: RRR, extremities well-perfused, no LE edema Resp: globally diminished breath sounds, +shallow breathing, +tachypnea GI: nondistended MSK: no gross deformities. +anterior chest wall TTP Skin: warm, dry, no rash appreciated Neuro: alert, oriented, no focal neurologic deficit appreciated Results & Data Results & Data Vital Signs (Past 12 Hours) Vital Signs Temp Pulse Pulse Resp BP BP Pulse Ox 05/07/25 10:00 85 18 128/88 96 05/07/25 09:30 77 22 122/81 93 05/07/25 08:41 83 05/07/25 08:15 92 05/07/25 08:14 92 05/07/25 08:14 05/07/25 08:00 36.9 C 95 H 30 H 144/77 H 92 O2 Del Method O2 Flow Rate 05/07/25 10:00 Oxymask 2 05/07/25 09:30 Oxymask 4 05/07/25 08:41 05/07/25 08:15 Room Air 05/07/25 08:14 Room Air 05/07/25 08:14 Room Air 05/07/25 08:00 Room Air Supervising Physician Co-Signing Physician Notes I personally examined the patient and verified all castle points of history and exam, discussed case, and agree with decision making with Dr Flores sob, cough. not getting better vitals noted nad but fatigued and on mask O2, lungs markedly diminished throughout. labs and diagnostics noted hypoxic respiratory failure / manage as bronchitis w secondary asthma exacerbation -steroids, nebs, supportive care, time chronic back pain -eating healthy, trying to care for self, can't exercise due to pain, thinks if weight came off he would be able to move more - seems like ideal candidate for [facility] - will ask case management to review/assist in getting covered otherwise as above Resident Activity Tracking Resident Involvement: Resident Care Provided Care Provided: Adult Hospital Medicine (2) Cough Cough type: unspecified Qualified Code(s): R05.9 - Cough, unspecified
[2025-05-07] MEDS: LEVALBUTEROL 1.25 MG/3 ML NEB NEB STA (11:40)
[2025-05-07] MEDS: MoRPHine SULFATE 2 MG/ML CARP IV PRN ×2 (11:40→23:22)
[2025-05-07] MEDS: LIDOCAINE 5% 1 PATCH TD STA (11:46)
--- NOTE | 2025-05-07 12:33 | Billing Data ---
Date of Service May 07, 2025 Coding Level of Care Code 75489 INT INP/OBS CARE
[2025-05-07] MEDS ORDERED: MELATONIN 3 MG TAB PO PRN (13:34)
[2025-05-07] MEDS ORDERED: ONDANSETRON INJ 2 MG/ML 2 ML VIAL IV PRN (13:34)
[2025-05-07] MEDS ORDERED: ALBUTEROL HFA 8 GM INHALER INH PRN (13:34)
[2025-05-07] MEDS ORDERED: POLYETHYLENE (MIRALAX) 17 GM PACK PO PRN (13:34)
[2025-05-07] MEDS ORDERED: ALUMINUM/MAGNESIUM SUSP 30 ML UDC PO PRN (13:34)
[2025-05-07] MEDS: ENOXAPARIN INJ 40 MG/0.4 ML SYR SQ SCH (17:33)
[2025-05-07] MEDS: ACETAMINOPHEN 500 MG TAB PO PRN (17:37)
[2025-05-07] MEDS: REMOVE LIDODERM PATCH ONE (22:00)
[2025-05-07] MEDS: PREGABALIN 50 MG CAP PO SCH (22:00)
[2025-05-07] MEDS: LEVALBUTEROL 1.25 MG/3 ML NEB NEB SCH (22:33)
[2025-05-07] MEDS: guaiFENesin 600 MG TABCR PO SCH (22:42)
[2025-05-07] MEDS: MONTELUKAST SODIUM 10 MG TABLET PO SCH (22:43)
[2025-05-07] MEDS: CETIRIZINE HCL 10 MG TABLET PO SCH (22:43)
[2025-05-08 07:20] VITALS: BP 144/83; TEMP 97.7
[2025-05-08 07:30] VITALS: PULSE 78; RESP 16; O2SAT 94
--- NOTE | 2025-05-08 08:05 | Electrocardiogram Report ---
Test Reason : Blood Pressure : */* mmHG Vent. Rate : 69 BPM Atrial Rate : 69 BPM P-R Int : 148 ms QRS Dur : 86 ms QT Int : 390 ms P-R-T Axes : 56 68 62 degrees QTcB Int : 417 ms Normal sinus rhythm with sinus arrhythmia Normal ECG When compared with ECG of 07-May-2025 08:13, No significant change was found Confirmed by Reza Thompson ([id number]) on 05/07/2025 3:31:30 PM Referred By: REFERRED SELF Confirmed By: Reza Thompson
[2025-05-08] MEDS: LIDOCAINE 5% 1 PATCH TD SCH (08:32)
[2025-05-08] MEDS: ATORVASTATIN 40 MG TAB PO SCH (08:33)
[2025-05-08] MEDS: SERTRALINE HCL 100 MG TABLET PO SCH (08:33)
[2025-05-08] MEDS: CLOPIDOGREL BISULFATE 75 MG TAB PO SCH (08:33)
[2025-05-08] MEDS: EZETIMIBE 10 MG TAB PO SCH (08:33)
--- NOTE | 2025-05-08 15:02 | Discharge Summary ---
Discharge Summary Date of Service May 08, 2025 Principal Dx & Hospital Course #1 = Principal Diagnosis (1) Acute respiratory failure with hypoxia: (2) Cough: (3) Atypical chest pain: (4) Obstructive sleep apnea: (5) Anxiety and depression: (6) Intractable low back pain: (7) Allergic rhinitis with postnasal drip: (8) Chronic cough: (9) Coronary artery disease: Plan #Acute hypoxic respiratory failure: 54-year-old male with history of chronic back pain status post multiple lumbar back surgeries, cervical discectomy, status post fusion, migraines, coronary disease, NSTEMI with stents x 2, hypertension, hyperlipidemia, anxiety depression, PTSD, sleep apnea presents with shortness of breath and chest pain/tightness worse with coughing. Reports hypoxia at home. Suspect presenting sx d/t asthma exacerbation- previous PFTs of suboptimal quality, history notable for allergic rhinitis, FHx +asthma, previous work up notable for elevated eosinophil count. Much improved after scheduled nebs and IV steroids. No further chest pain. No leukocytosis or fevers to indicate infection. Will discharge with course of prednisone, continue mucinex, prn inhaler. Follow up with pulm as scheduled. #Atypical chest pain: Low suspicion for cardiac etiology given EKG without overt ischemic changes, negative tropx2, lack of response to nitroglycerin, and reproducibility with palpation of chest wall and worse with coughing. Pain control - lidocaine patch and tylenol. #DILLAN: Not on CPAP at home #HLD: continue atorvastatin Dispo: discharge to home today Notes For Next Care Provider consider GLP 1 for weight loss given limited activity secondary to back pain Admission HPI Per Admitting Provider 54-year-old male with history of chronic back pain status post multiple lumbar back surgeries, cervical discectomy, status post fusion, migraines, coronary disease, NSTEMI with stents x 2, hypertension, hyperlipidemia, anxiety depression, PTSD, sleep apnea presents with shortness of breath and chest pain/tightness. Patient has had cough and congestion for the past week - was seen in outpatient setting, treated with course of azithromycin. Despite this, sx have progressively worsened. Today, felt particularly short of breath - checked SpO2 at home and was in the mid-80s on RA. Also felt chest pressure radiating into bilateral UEs. Endorses chills but no overt fevers. No i mprovement with nitro given by EMS and again in ED. Has been using albuterol with brief sx improvement. Denies formal dx of asthma or COPD, though has been following with pulmonology since May for chronic cough, BYRD, and abnormal chest CT (findings since resolved). ED Course: Negative trop, EKG without ischemic changes - chest tightness refractory to nitro CXR negative +leukocytosis Negative d-dimer Discharge Exam General: NAD, VS as above Resp: normal respiratory effort, lungs clear to auscultation, no wheezing CV: RRR, no murmur, tender to palpation over the chest wall Abd: normal bowel sounds, non tender, soft Extremities: Moves all extremities, no edema Neuro: A&O x3, Skin: intact, no lesions noted Discharge Plan Discharge Items Patient Disposition: Home - Self-Care Reason For Visit: SOB, CHEST TIGHTNESS Discharge Diagnosis: bronchitis Condition on Discharge: Fair Activity: Resume your previous activity Driving/Machine Use: No limitations Weightbearing: Full weightbearing Non-emergency contact: Primary Care Provider Call non-emergency contact if: you have any medication questions, your symptoms worsen, your pain is concerning for you and your temperature is above 101 Follow-up/Referrals: Joshua Roldan MD, FCCP [Physician] - (keep appointment scheduled in jul ) Ana Rosa Murguia CRNP [Primary Care Provider] - (follow up within one week ) Diet: Heart Healthy Addtl Attending Provider Instructions: Mr. Lazcano, You were admitted after having hypoxia and tachycardia at home. You were found to have bronchitis. I suspect the chest pain is related to coughing and possible muscle strain. Your troponin was negative multiple times which is reassuring. Continue to monitor your vitals as you do at home. Will send with a few more days of prednisone. Continue to use your inhaler as needed and follow up with Pulmonology. Recommend continue to use mucinex at home to help loosen up the cough. Can purchase lidocaine patches over the counter if you felt like those were helpful. Activity: You can do normal everyday activities as your body allows. Take rest breaks if you feel tired. Do not overexert. Stop activity if you have pain, shortness of breath or feel dizzy. Follow-up appointments: Make an appointment with your primary care physician within one week of discharge. A copy of this summary will be sent to them. Every time you see your primary care physician, or any other doctor, bring your medication list, and a list of questions. CONTACT YOUR PRIMARY CARE PROVIDER if you experience any of the following: Shortness of breath or difficulty breathing Fevers or chills Feeling tired with normal activity or experiencing dizziness or fainting Difficulty following your treatment plan, or difficulty taking medications CALL 911 OR GO TO THE EMERGENCY DEPARTMENT if you experience any of the following: Severe abdominal pain or nausea/vomiting Severe chest pain, or chest pain that radiates (moves) to your jaw or arm Sudden, severe shortness of breath or difficulty breathing Thank you for allowing us to participate in your care. Pending Studies at Discharge: No Stand-Alone Forms: My [facility] [employer], Smoking Cessation Medications and DC Order Prescriptions: New guaifenesin [Mucinex] 600 mg Tablet Extended Release 12hr 1,200 mg PO Q12 30 Days Qty: 120 0RF prednisone 20 mg tablet See Taper PO DAILY Qty: 9 0RF Taper: Taper, Blank 40 mg DAILY for 3 Days 20 mg DAILY for 3 Days Continued atorvastatin 40 mg tablet 40 mg PO QAM Qty: 90 3RF montelukast 10 mg tablet 10 mg PO QPM Qty: 90 3RF Rx Instructions: TAKE 1 TABLET DAILY IN THE EVENING pantoprazole 40 mg tablet,delayed release (DR/EC) 40 mg PO QAM Qty: 90 3RF trazodone 150 mg tablet 150 mg PO HS Qty: 90 3RF pregabalin [Lyrica] 50 mg capsule 50 mg PO BID Qty: 90 1RF Rx Instructions: Ongoing therapy Supervising physician Kamila Mckeon NP [phone] [facility] [id number] tadalafil 5 mg tablet 20 mg PO ONCE PRN (Reason: sexual activity) Qty: 30 11RF Patient Comments: 02/19- no fill history unable to verify clopidogrel 75 mg tablet 75 mg PO QAM Qty: 90 3RF Hold Instructions: Hold starting 10/02 for planned back injection on 10/09. nitroglycerin [Nitrostat] 0.4 mg tablet, sublingual 0.4 mg sublingual Q5M PRN (Reason: chest pain) Qty: 1 0RF Patient Comments: 02/19- no fill history unable to verify sertraline [Zoloft] 100 mg tablet 100 mg PO QAM Qty: 90 3RF albuterol sulfate 90 mcg/actuation HFA aerosol inhaler 2 puff inhalation Q6H PRN (Reason: Shortness Of Breath Or Wheezing) Qty: 18 3RF ezetimibe [Zetia] 10 mg tablet 10 mg PO DAILY Qty: 90 3RF levocetirizine [Xyzal] 5 mg tablet 5 mg PO PM Patient Comments: 02/19- otc unable to verify acetaminophen [Tylenol Extra Strength] 500 mg Tablet 1,000 mg PO Q8H Qty: 60 0RF Patient Comments: 02/19- otc unable to verify No Action Wegovy 0.25 mg/0.5 mL pen injector 0.25 mg subcut Q7D Qty: 2 2RF Discharge Orders: Discharge Order (Routine); Ordered 05/08/25 Ordered By: Alla Lane/Other Patient Handouts: Acute Bronchitis Admission Data Admit Date/Time: 05/07/25 11:54 Attending Provider: Fabiola Brown Admit Provider: Kvng Flores Primary Care Provider: Ana Rosa Murguia Other Providers: Nicolas Chung Other Interventions: Discharge Summary Assessment (RN) Last Done: 05/08/25 12:05 Hospital Stay Data Consultations 05/07/25 09:42 ED Decision to Admit Stat Diagnostic Imagining Performed Chest X-Ray 05/07/25 08:15 XR chest 1V portable CLINICAL HISTORY: Chest pain, nonspecific COMPARISON STUDY: 02/19/2025 FINDINGS: The heart is at the upper limits of normal in size. There is no overt failure. Slight interstitial prominence likely relates to the patient's body habitus and suboptimal inspiratory effort. There is no lobar consolidation. There are no pleural effusions. Tram track calcifications projected to the left heart border likely related to coronary artery calcification or a coronary artery calcified stent. Postsurgical changes are present within the cervical spine. IMPRESSION: No active disease in the chest. ACT 112: Negative or not required by law. Electronically signed by: Connor Adkins M.D. 05/07/2025 9:01 AM Pending Results Patient Have Any Pending Studies at Discharge: No Discharge Instructions Given to Patient (Per Discharging Provider) Mr. Lazcano, [place] were admitted after having hypoxia and tachycardia at home. You were found to have bronchitis. I suspect the chest pain is related to coughing and possible muscle strain. Your troponin was negative multiple times which is reassuring. Continue to monitor your vitals as you do at home. Will send with a few more days of prednisone. Continue to use your inhaler as needed and follow up with Pulmonology. Recommend continue to use mucinex at home to help loosen up the cough. Can purchase lidocaine patches over the counter if you felt like those were helpful. Activity: You can do normal everyday activities as your body allows. Take rest breaks if you feel tired. Do not overexert. Stop activity if you have pain, shortness of breath or feel dizzy. Follow-up appointments: Make an appointment with your primary care physician within one week of discharge. A copy of this summary will be sent to them. Every time you see your primary care physician, or any other doctor, bring your medication list, and a list of questions. CONTACT YOUR PRIMARY CARE PROVIDER if you experience any of the following: Shortness of breath or difficulty breathing Fevers or chills Feeling tired with normal activity or experiencing dizziness or fainting Difficulty following your treatment plan, or difficulty taking medications CALL 911 OR GO TO THE EMERGENCY DEPARTMENT if you experience any of the following: Severe abdominal pain or nausea/vomiting Severe chest pain, or chest pain that radiates (moves) to your jaw or arm Sudden, severe shortness of breath or difficulty breathing Thank you for allowing us to participate in your care. Supervising Physician Co-Signing Physician Notes PA Supervision Note: I did not personally see or examine the patient today, but I verified all castle points of YUNG Hoffmann's assessment and plan with the following exceptions/additions: None Total Time Total Time Spent Total Time Spent (In Minutes): Time spent day of discharge 33 minutes including direct patient care, medication reconciliation, documentation, review of labs and images, and coordination of care. Coding Level of Care Code 35530 INP/OBS DISCH >30 MIN Diagnoses Acute respiratory failure with hypoxia J96.01 Cough R05.9 Cough type: unspecified Atypical chest pain R07.89 Obstructive sleep apnea G47.33 Anxiety and depression F41.9; F32.A Intractable low back pain M54.59 Allergic rhinitis with postnasal drip J30.9; R09.82 Chronic cough R05.3 Coronary artery disease I25.10
[2025-05-08] MEDS ORDERED: REMOVE LIDODERM PATCH SCH (21:00)
--- NOTE | 2025-05-09 11:34 | Electrocardiogram Report ---
Test Reason : Blood Pressure : */* mmHG Vent. Rate : 73 BPM Atrial Rate : 73 BPM P-R Int : 156 ms QRS Dur : 90 ms QT Int : 408 ms P-R-T Axes : 52 69 57 degrees QTcB Int : 449 ms Normal sinus rhythm with sinus arrhythmia Normal ECG When compared with ECG of 07-May-2025 09:26, No significant change was found Confirmed by Reza Thompson ([id number]) on 05/09/2025 11:34:06 AM Referred By: REFERRED SELF Confirmed By: Reza Thompson
== END 2025-05-08 12:52 | disposition home or self-care (01) ==
LOC: EDINP 08:08 → ED 08:08 → SUATTDRO 11:54 → 3E 13:34